=== PATIENT | female | born 1965 | race Caucasian/White ===

== ENCOUNTER 2021-02-12 10:28 | Inpatient (IN) ==
[2021-02-12 11:50] LABS: Alanine Aminotransferase 11 U/L (12-78); Albumin Level 3.2 gm/dl (3.4-5.0); Anion Gap 0 (3-11); Aspartate Aminotransferase 14 U/L (15-37); Blood Urea Nitrogen 14 mg/dl (7-18); Chloride 98 mmol/L (98-107); Creatinine Clr Calc Pharmacy 171.4 ml/min; Est GFR (African American) 122.2 ml/min; Est GFR (Non-African American) 105.4 ml/min; Glucose 258 mg/dl (70-99); Magnesium 2.1 mg/dl (1.8-2.4); Sodium 139 mmol/L (136-145)
[2021-02-12 11:56] LABS: Albumin Globulin Ratio 0.9 (0.9-2); Alkaline Phosphatase 144 U/L (45-117); Globulin 3.7 gm/dl (2.5-4.0); NT Pro B Type Natriuretic Pept 400 pg/ml (0-900); Total Protein 6.9 gm/dl (6.4-8.2); Troponin I < 0.015 ng/ml (0-0.045)
[2021-02-12] MEDS ORDERED: ALBUT/IPRATROP 3MG/0.5MG NEB 3 ML VIAL NEB STA (12:14)
[2021-02-12 12:28] LABS: Carbon Dioxide 41 mmol/L (21-32)
--- NOTE | 2021-02-12 12:56 | XRay Report ---
XR chest 1V portable CLINICAL HISTORY: Shortness of breath. COMPARISON STUDY: No previous studies for comparison. FINDINGS: There is elevation of the right hemidiaphragm. Right perihilar and right basilar opacity is present. There is also left lower lung opacity. Interstitial thickening is noted. Enlargement of the cardiac silhouette is noted. There may be calcific tendinitis of the left rotator cuff. There is no pneumothorax. There may be a small right pleural effusion. IMPRESSION: 1. Enlargement of the cardiac silhouette. Interstitial thickening suggestive of pulmonary edema. Poss ible small right pleural effusion. 2. Elevation of the right hemidiaphragm. Right perihilar and right basilar opacity which could reflec t atelectasis or an infectious process. Radiographic follow up is recommended. ACT 112: Negative or not required by law. Electronically signed by: Art Pierce M.D. 02/12/2021 12:54 PM
[2021-02-12 13:02] LABS: Basophils # (auto) 0.01 K/uL (0-0.2); Basophils % (auto) 0.1 %; Eosinophils # (auto) 0.22 K/uL (0-0.5); Eosinophils % (auto) 2.5 %; Hematocrit (blood only) 35.8 % (37-47); Hemoglobin 10.5 g/dL (12.0-16.0); Immature Granulocytes # (auto) 0.03 K/uL (0.00-0.02); Immature Granulocytes % (auto) 0.3 %; Lymphocytes # (auto) 1.98 K/uL (1.2-3.4); Lymphocytes % (auto) 22.1 %; Mean Corpuscular Hemoglobin 27.3 pg (25-34); Mean Corpuscular Hgb Conc 29.3 g/dL (32-36); Mean Corpuscular Volume 93.2 fL (80-100); Mean Platelet Volume 11.7 fL (7.4-10.4); Monocytes # (auto) 0.53 K/uL (0.11-0.59); Monocytes % (auto) 5.9 %; Neutrophils % (auto) 69.1 %; Platelet Count 270 K/uL (130-400); RDW Coefficient of Variation 15.8 % (11.5-14.5); RDW Standard Deviation 53.3 fL (36.4-46.3); Red Blood Count 3.84 M/uL (4.2-5.4); White Blood Count 8.97 K/uL (4.8-10.8)
--- NOTE | 2021-02-12 13:10 | Emergency Department Note ---
History of Present Illness General Chief complaint: Shortness of Breath/Dyspnea Stated complaint: BREATHING DIFFICULTY Time Seen by Provider: 02/12/21 10:53 Source: patient Mode of arrival: EMS Limitations: no limitations History of Present Illness Provider complaint: Shortness of breath, weakness Onset (ago): unknown Associated symptoms: + loss of appetite, + malaise, + shortness of breath and + weakness; no chest pain Treatments prior to arrival: none This is a 55-year-old female presents emergency department from her PCPs office via EMS due to concern for hypoxia and shortness of breath. Patient with significant pulmonary history including underlying COPD and wears 2 L/min of oxygen daily. Patient was recently in a jail/rehab facility for almost a month, and feels she was discharged too soon. Patient states she was discharged last Tuesday and came home and has had significant difficulty with her breathing as well as with ambulating. Patient states she feels significantly weak and is concerned for her ability to get around her apartment as well as transfer. Patient states she has been wearing her oxygen and using her nebulizer treatments at home however still felt short of breath. She saw h er PCP, Dr. Deng today in the office for a follow-up visit since her discharge and was initially found to be hypoxic at 74% on her usual 2 L. She was increased to 3 and came up into the 80s, and increased to 4 L and came up into the 90s by the time EMS arrived. On arrival here patient was on 4 L and was in the 90s. Patient states she still feels short of breath regardless. Patient denies any accompanying chest pain or fevers. Patient does believe she may been exposed to coronavirus while she was at rehab. She has not been tested since. Pt seen during a time of high acuity and national emergency pandemic while wearing PPE. Home Medications Medication Instructions Recorded Confirmed Type underpads #40 ea 02/21/20 02/12/21 Rx atorvastatin 20 mg tablet 20 mg PO DAILY #90 tab 03/24/20 02/12/21 Rx miscellaneous medical supply #1 ea 03/24/20 02/12/21 Rx miscellaneous medical supply #500 ea 03/24/20 02/12/21 Rx acetaminophen 500 mg tablet 1,000 mg PO Q6H PRN tab 02/10/21 02/12/21 History budesonide 0.5 mg/2 mL suspension 0.25 mg INHALATION BID #2 ml 02/10/21 02/12/21 Rx for nebulization bumetanide 1 mg tablet 1 mg PO DAILY 02/10/21 02/12/21 History carvedilol 12.5 mg tablet 12.5 mg PO BID 02/10/21 02/12/21 History clonazepam 0.5 mg tablet 0.5 mg PO TID tab 02/10/21 02/12/21 History cyclobenzaprine 10 mg tablet 10 mg PO BID PRN #60 tab 02/10/21 02/12/21 Rx insulin glargine 100 unit/mL 25 unit SQ QPM #40 ml 02/10/21 02/12/21 Rx subcutaneous solution insulin lispro 100 unit/mL See Rx Instructions SQ QID #10 ml 02/10/21 02/12/21 Rx subcutaneous solution ipratropium 0.5 mg-albuterol 3 mg 3 ml INHALATION QID PRN 02/10/21 02/12/21 History (2.5 mg base)/3 mL nebulization soln levothyroxine 150 mcg tablet 150 mcg PO DAILY 02/10/21 02/12/21 History nystatin 100,000 unit/gram topical 1 applic TOPICAL DAILY 02/10/21 02/12/21 History powder ondansetron HCl 4 mg tablet 4 mg PO Q6H PRN 02/10/21 02/12/21 History pantoprazole 40 mg granules 40 mg PO DAILY 02/10/21 02/12/21 History delayed-release for susp in packet polyethylene glycol 3350 17 17 g PO DAILY PRN 02/10/21 02/12/21 History gram/dose oral powder potassium chloride 10 mEq 10 meq PO DAILY 02/10/21 02/12/21 History tablet,extended release aripiprazole 30 mg PO DAILY 02/12/21 02/12/21 History buspirone 15 mg PO TID 02/12/21 02/12/21 History paroxetine HCl 10 mg PO DAILY 02/12/21 02/12/21 History Allergies Allergy/AdvReac Type Severity Reaction Status Date / Time bupropion Allergy Unknown Hives Verified 02/12/21 09:00 Sulfa (Sulfonamide Allergy Unknown Hives Verified 02/12/21 09:00 Antibiotics) Past Med/Surg History Medical History (Updated 02/13/21 @ 07:02 by aCro Castillo DO) Acid reflux Acne Allergic rhinitis Anemia Anxiety Arthritis Chronic diastolic (congestive) heart failure Chronic obstructive pulmonary disease Chronic respiratory failure Depression Diabetes type 2, uncontrolled Essential tremor Fatty liver H/O renal calculi H/O: iron deficiency anemia H/O: pneumonia Hearing difficulty Hyperlipemia Hypertension Hypothyroidism Knee osteoarthritis Lung cancer Mass of lung Obesity hypoventilation syndrome PTSD (post-traumatic stress disorder) Severe obstructive sleep apnea Urinary incontinence Vitamin D deficiency Surgical History H/O lithotripsy H/O prior ablation treatment Uterine.2005 H/O tympanostomy History of adenoidectomy History of tonsillectomy Previous section Family History Father Alcohol abuse Cardiac disorder Diabetes Gallbladder disease Hypertension Depression Mother Anxiety Depression Diabetes Hypertension Stroke Sister Breast cancer Depression Heart disease, congenital Grandmother (Maternal) Lung disease Grandfather (Maternal) Heart disease Colorectal cancer Prostate cancer Denies family history of Ovarian cancer Myocardial infarction Social History (Updated 02/12/21 @ 09:04 by Sasha Mckeon) Smoking Status: Never smoker Age Started Using Tobacco: 16; Age Quit Using Tobacco: 29; packs per day: 1; Second Hand Exposure: No; Hx Alcohol Use: No Hx Substance Use: No Preferred Language: Irish Communication Ability: Effective Visual Impairment: Limited Hearing Ability: Hard of Hearing Family Service Counselor Required: No Beliefs That Will Affect Care: None marital status: Legally Current Living Situation: Rehab current occupational status: disabled Other Information That Helps Us Care for You: No Feels Safe at Home: Yes Safety Concerns: Feels Safe At This Time and Afraid for Self Childhood Exposure to Second-Hand Smoke: Yes Diet Comment: Tries to maintain healthy diet. caffeine: Yes (Tea x 2 cups a day.) during the past year weight has: decreased > 10 lbs Dental Care, Regularly: No Physical Activity Frequency: Does not Exercise Physical Activity Frequency Comment: Limited by physical condition Seatbelt Use: always Sunscreen Use: Yes Assistive Devices: Oxygen - Continuous and Walker Review of Systems See HPI for pertinent positives & negatives. and A total of 10 systems reviewed and were otherwise negative Physical Exam Vital Signs Vital Signs - 24 hr 02/12/21 10:32 02/12/21 10:41 02/12/21 10:45 Temperature Temperature Source Pulse Rate 93 H 92 H 90 Pulse Rate [Right Finger] Pulse Rate from SpO2 Sensor 91 H Respiratory Rate 16 14 24 Respiratory Effort / Characteristics Blood Pressure 164/105 H 137/91 Blood Pressure Mean 124 106 Pulse Oximetry 95 Oxygen Delivery Method Oxygen Flow Rate 3 Sepsis Recent Fever Within 48 Hours Sepsis New/Unexplained Change in Mental Status Sepsis Action Taken by Nursing 02/12/21 10:50 02/12/21 10:52 02/12/21 10:58 Temperature 36.7 C Temperature Source Oral Pulse Rate 91 H 91 H Pulse Rate [Right Finger] Pulse Rate from SpO2 Sensor 91 H Respiratory Rate 21 20 Respiratory Effort / Characteristics Blood Pressure 164/105 H Blood Pressure Mean 124 Pulse Oximetry 100 95 100 Oxygen Delivery Method Nasal Cannula Nasal Cannula Oxygen Flow Rate 3 2 3 Sepsis Recent Fever Within 48 Hours No Sepsis New/Unexplained Change in Mental Status N/A Sepsis Action Taken by Nursing No Action Required 02/12/21 11:00 02/12/21 11:01 02/12/21 11:10 Temperature Temperature Source Pulse Rate 89 90 92 H Pulse Rate [Right Finger] Pulse Rate from SpO2 Sensor 90 90 92 H Respiratory Rate 13 16 25 H Respiratory Effort / Characteristics Blood Pressure 112/76 Blood Pressure Mean 88 Pulse Oximetry 100 100 100 Oxygen Delivery Method Oxygen Flow Rate 3 3 Sepsis Recent Fever Within 48 Hours Sepsis New/Unexplained Change in Mental Status Sepsis Action Taken by Nursing 02/12/21 11:20 02/12/21 11:30 02/12/21 11:31 Temperature Temperature Source Pulse Rate 91 H 92 H 91 H Pulse Rate [Right Finger] Pulse Rate from SpO2 Sensor 91 H 92 H 93 H Respiratory Rate 9 L 10 L 13 Respiratory Effort / Characteristics Blood Pressure 106/75 Blood Pressure Mean 85 Pulse Oximetry 99 99 100 Oxygen Delivery Method Oxygen Flow Rate Sepsis Recent Fever Within 48 Hours Sepsis New/Unexplained Change in Mental Status Sepsis Action Taken by Nursing 02/12/21 11:47 02/12/21 11:50 02/12/21 12:00 Temperature Temperature Source Pulse Rate 101 H 96 H 93 H Pulse Rate [Right Finger] Pulse Rate from SpO2 Sensor 97 H 94 H Respiratory Rate 33 H 22 Respiratory Effort / Characteristics Blood Pressure 103/64 Blood Pressure Mean 77 Pulse Oximetry 98 97 Oxygen Delivery Method Oxygen Flow Rate 3 Sepsis Recent Fever Within 48 Hours Sepsis New/Unexplained Change in Mental Status Sepsis Action Taken by Nursing 02/12/21 12:01 02/12/21 12:10 02/12/21 12:20 Temperature Temperature Source Pulse Rate 94 H 94 H 90 Pulse Rate [Right Finger] Pulse Rate from SpO2 Sensor 95 H 96 H 91 H Respiratory Rate 17 21 13 Respiratory Effort / Characteristics Blood Pressure Blood Pressure Mean Pulse Oximetry 99 95 98 Oxygen Delivery Method Oxygen Flow Rate 3 3 3 Sepsis Recent Fever Within 48 Hours Sepsis New/Unexplained Change in Mental Status Sepsis Action Taken by Nursing 02/12/21 12:30 02/12/21 12:37 02/12/21 12:40 Temperature Temperature Source Pulse Rate 91 H 93 H Pulse Rate [Right Finger] 93 H Pulse Rate from SpO2 Sensor 91 H 93 H Respiratory Rate 15 18 18 Respiratory Effort / Characteristics Non-Labored Spontaneous Blood Pressure 144/78 H Blood Pressure Mean 100 Pulse Oximetry 99 99 100 Oxygen Delivery Method Nasal Cannula Nasal Cannula Oxygen Flow Rate 3 2 2 Sepsis Recent Fever Within 48 Hours Sepsis New/Unexplained Change in Mental Status Sepsis Action Taken by Nursing 02/12/21 12:50 02/12/21 13:00 02/12/21 13:01 Temperature Temperature Source Pulse Rate 93 H 91 H 94 H Pulse Rate [Right Finger] Pulse Rate from SpO2 Sensor 93 H 92 H 94 H Respiratory Rate 15 12 22 Respiratory Effort / Characteristics Blood Pressure 132/81 Blood Pressure Mean 98 Pulse Oximetry 98 96 96 Oxygen Delivery Method Oxygen Flow Rate 2 2 2 Sepsis Recent Fever Within 48 Hours Sepsis New/Unexplained Change in Mental Status Sepsis Action Taken by Nursing 02/12/21 13:10 02/12/21 13:20 02/12/21 13:30 Temperature Temperature Source Pulse Rate 93 H 95 H 92 H Pulse Rate [Right Finger] Pulse Rate from SpO2 Sensor 93 H 95 H 92 H Respiratory Rate 17 26 H 14 Respiratory Effort / Characteristics Blood Pressure 117/73 Blood Pressure Mean 87 Pulse Oximetry 96 97 97 Oxygen Delivery Method Oxygen Flow Rate 2 Sepsis Recent Fever Within 48 Hours Sepsis New/Unexplained Change in Mental Status Sepsis Action Taken by Nursing 02/12/21 13:31 02/12/21 13:40 02/12/21 13:50 Temperature Temperature Source Pulse Rate 91 H 94 H 90 Pulse Rate [Right Finger] Pulse Rate from SpO2 Sensor 92 H 94 H 90 Respiratory Rate 18 20 20 Respiratory Effort / Characteristics Blood Pressure Blood Pressure Mean Pulse Oximetry 96 96 97 Oxygen Delivery Method Oxygen Flow Rate Sepsis Recent Fever Within 48 Hours Sepsis New/Unexplained Change in Mental Status Sepsis Action Taken by Nursing 02/12/21 14:00 02/12/21 14:01 02/12/21 14:10 Temperature Temperature Source Pulse Rate 91 H 94 H 91 H Pulse Rate [Right Finger] Pulse Rate from SpO2 Sensor 91 H 96 H 92 H Respiratory Rate 18 12 Respiratory Effort / Characteristics Blood Pressure 133/79 Blood Pressure Mean 97 Pulse Oximetry 96 96 96 Oxygen Delivery Method Oxygen Flow Rate 2 Sepsis Recent Fever Within 48 Hours Sepsis New/Unexplained Change in Mental Status Sepsis Action Taken by Nursing 02/12/21 14:20 02/12/21 14:30 02/12/21 14:31 Temperature Temperature Source Pulse Rate 92 H 93 H 93 H Pulse Rate [Right Finger] Pulse Rate from SpO2 Sensor 93 H 90 93 H Respiratory Rate 17 18 16 Respiratory Effort / Characteristics Blood Pressure 130/73 Blood Pressure Mean 92 Pulse Oximetry 96 93 95 Oxygen Delivery Method Oxygen Flow Rate 2 Sepsis Recent Fever Within 48 Hours Sepsis New/Unexplained Change in Mental Status Sepsis Action Taken by Nursing GENERAL: alert, well appearing, well nourished, no distress, non-toxic, BMI>56, wearing oxygen via nasal cannula under her mask EYE EXAM: normal conjunctiva, PERRL and EOM's grossly intact OROPHARYNX: no exudate, no erythema, lips, buccal mucosa, and tongue normal and mucous membranes are moist, edentulous NECK: supple, no nuchal rigidity, no adenopathy, non-tender LUNGS: Clear but decreased to auscultation. Normal chest wall mechanics, no w/r/r HEART: no murmurs, S1 normal and S2 normal ABDOMEN: abdomen soft, non-tender, normo-active bowel sounds, no masses, no rebound or guarding. BACK: Back is symmetrical on inspection and there is no deformity, no midline tenderness, no CVA tenderness. SKIN: no rashes and no bruising UPPER EXTREMITIES: upper extremities are grossly normal. FROM, nml pulses b/l. LOWER EXTREMITIES: No pitting edema. FROM, nml pulses b/l. NEURO EXAM: Normal sensorium, cranial nerves II-XII grossly intact, normal speech, no gross weakness of arms, no gross weakness of legs the patient states difficulty in raising legs, left greater than right. Gross sensation intact. Course Administered Medications Albuterol (Albut/Ipratrop 3mg/0.5mg Neb 3 Ml Vial) 3 ml INH QID PRN PRN Reason: Shortness Of Breath Or Wheezing Stop: 03/14/21 16:01 Last Admin: 02/13/21 02:46 Dose: 3 ml Documented by: [id number] Budesonide (Budesonide 0.5 Mg/2 Ml Vial (Pulmicort)) 0.25 mg INH BIDR [facility] Stop: 03/14/21 20:59 Last Admin: 02/12/21 19:47 Dose: Not Given Documented by: [id number] Buspirone HCl (Buspirone 15 Mg Tab) 15 mg PO TID [facility] Stop: 03/14/21 16:01 Last Admin: 02/12/21 21:10 Dose: 15 mg Documented by: [id number] Admin: 02/12/21 17:27 Dose: 15 mg Documented by: [id number] Carvedilol (Carvedilol 12.5 Mg Tab) 12.5 mg PO BID [facility] Stop: 03/14/21 20:59 Last Admin: 02/12/21 21:10 Dose: 12.5 mg Documented by: [id number] Clonazepam (Clonazepam 0.5 Mg Tab) 0.5 mg PO TID [facility] Stop: 03/14/21 16:01 Last Admin: 02/12/21 21:09 Dose: 0.5 mg Documented by: [id number] Admin: 02/12/21 17:27 Dose: 0.5 mg Documented by: [id number] Enoxaparin Sodium (Enoxaparin Inj 40 Mg/0.4 Ml Syr) 40 mg SQ Q12H [facility] Stop: 03/14/21 17:59 Last Admin: 02/13/21 05:53 Dose: 40 mg Documented by: [id number] Admin: 02/12/21 17:27 Dose: 40 mg Documented by: [id number] Insulin Aspart (Insulin Aspart 100 Units/Ml 3 Ml Pen) 0 units SC [facility]; Protocol Stop: 03/14/21 16:29 Last Admin: 02/12/21 21:14 Dose: 5 units Documented by: [id number] Cosigned by: [id number] Admin: 02/12/21 17:28 Dose: 7 units Documented by: [id number] Cosigned by: [id number] Insulin Glargine (Insulin Glargine Solostar 100 Units/Ml 3 Ml Pen) 25 units SC [facility]; Protocol Stop: 03/14/21 20:59 Last Admin: 02/12/21 21:12 Dose: 25 units Documented by: [id number] Cosigned by: [id number] Levothyroxine Sodium (Levothyroxine Sodium 150 Mcg Tablet) 150 mcg PO DAILYBB [facility]LE Stop: 03/15/21 06:29 Last Admin: 02/13/21 05:52 Dose: 150 mcg Documented by: [id number] Melatonin (Melatonin 3 Mg Tab) 3 mg PO HS PRN PRN Reason: Sleep Stop: 03/14/21 21:44 Last Admin: 02/13/21 00:08 Dose: 3 mg Documented by: [id number] Ondansetron HCl (Ondansetron 4 Mg Od Tab) 4 mg PO Q6 PRN PRN Reason: NAUSESA Stop: 03/14/21 17:10 Last Admin: 02/13/21 01:20 Dose: 4 mg Documented by: [id number] Discontinued Medications Albuterol (Albut/Ipratrop 3mg/0.5mg Neb 3 Ml Vial) 3 ml NEB NOW STA Stop: 02/12/21 12:15 Last Admin: 02/12/21 12:36 Dose: 3 ml Documented by: [id number] Ioversol (Optiray 350 500ml) 118 ml IV ONCE ONE Stop: 02/12/21 18:32 Last Admin: 02/12/21 18:32 Dose: 1 ml Documented by: [id number] Pneumococcal Polyvalent Vaccine (Pneumococcal Polysaccharides 25 Mcg/0.5 Ml Vial /Syr) 25 mcg IM .ONCE ONE Stop: 02/12/21 16:30 Last Admin: 02/12/21 17:28 Dose: Not Given Documented by: [id number] Medical Decision Making Differential Diagnosis Differential diagnoses includes but is not limited to pneumonia, bronchitis, COPD/Asthma exacerbation, pneumothorax, pulmonary embolism, congestive heart failure, acute coronary syndrome Medical Records Attestation: I reviewed the patient's medical records. Home Medications Current Medication List: was personally reviewed by me Laboratory Data Attestation: I reviewed the patient's lab results. Result diagrams: 02/12/21 12:16 02/12/21 11:28 Lab Results 02/12/21 02/12/21 02/12/21 Range/Units 11:28 11:28 11:51 WBC Cancelled RBC Cancelled Hgb Cancelled Hct Cancelled MCV Cancelled MCH Cancelled MCHC Cancelled RDW Std Deviation Cancelled RDW Coeff of Carol Cancelled Plt Count Cancelled MPV Cancelled Immature Gran % (Auto) Cancelled Neut % (Auto) Cancelled Lymph % (Auto) Cancelled [place] % (Auto) Cancelled Eos % (Auto) Cancelled Baso % (Auto) Cancelled Neut # (Auto) Cancelled Lymph # (Auto) Cancelled [place] # (Auto) Cancelled Eos # (Auto) Cancelled Baso # (Auto) Cancelled Immature Gran # (Auto) Cancelled Absolute Nucleated RBC Cancelled Nucleated RBC % (auto) Cancelled Neutrophils % (Manual) Cancelled Band Neutrophils % Cancelled Lymphocytes % (Manual) Cancelled Prolymphocyte % Cancelled Reactive Lymphs % (Man) Cancelled Monocytes % (Manual) Cancelled Eosinophils % (Manual) Cancelled Basophils % (Manual) Cancelled Metamyelocytes % (Man) Cancelled Myelocytes % (Man) Cancelled Promyelocytes % (Man) Cancelled Blast Cells % (Manual) Cancelled Plasma Cell % (Manual) Cancelled Other Cells % Cancelled Nucleated RBC % Cancelled Neutrophils # (Manual) Cancelled Band Neutrophils # Cancelled Total Absolute Neuts Cancelled Lymphocytes # (Manual) Cancelled Prolymphocyte # Cancelled Reactive Lymphs # Cancelled Total Abs Lymphocytes Cancelled Monocytes # (Manual) Cancelled Eosinophils # (Manual) Cancelled Basophils # (Manual) Cancelled Metamyelocytes # (Man) Cancelled Myelocytes # (Manual) Cancelled Promyelocytes # (Man) Cancelled Blast Cells # (Man) Cancelled Plasma Cell # (Manual) Cancelled Other Cells # Cancelled Nucleated RBCs # (Man) Cancelled Hypersegmented Neuts Cancelled Hyposegmented Neuts Cancelled Hypogranular Neuts Cancelled Large Granular Lymphs Cancelled # Lrg Granular Lymphs Cancelled Hairy Cells Cancelled Smudge Cells Cancelled Toxic Granulation Cancelled Toxic Vacuolation Cancelled Dohle Bodies Cancelled Alex Rods Cancelled Platelet Estimate Cancelled Hypogranular Platelets Cancelled Clumped Platelets Cancelled Giant Platelets Cancelled Platelet Satelliting Cancelled RBC Morphology Cancelled Polychromasia Cancelled Hypochromasia Cancelled Poikilocytosis Cancelled Basophilic Stippling Cancelled Anisocytosis Cancelled Microcytosis Cancelled Macrocytosis Cancelled Spherocytes Cancelled Pappenheimer Bodies Cancelled Sickle Cells Cancelled Target Cells Cancelled Tear Drop Cells Cancelled Ovalocytes Cancelled Stomatocytes Cancelled [place] Bodies Cancelled Echinocytes Cancelled Acanthocytes (Spur) Cancelled Rouleaux Cancelled RBC Agglutinates Cancelled Schistocytes Cancelled RBC Morph Comment Cancelled [place] Cell Cancelled Sodium 139 (136-145) mmol/L Potassium 5.0 (3.5-5.1) mmol/L Chloride 98 (98-107) mmol/L Carbon Dioxide 41 H* (21-32) mmol/L Anion Gap 0 L (3-11) BUN 14 (7-18) mg/dl Creatinine 0.53 L (0.6-1.2) mg/dl Est Cr Clr Drug Dosing 171.4 ml/min Est GFR ( Amer) 122.2 ml/min Est GFR (Non-Af Amer) 105.4 ml/min BUN/Creatinine Ratio 26.0 H (10-20) Glucose 258 H (70-99) mg/dl Calcium 9.0 (8.5-10.1) mg/dl Magnesium 2.1 (1.8-2.4) mg/dl Total Bilirubin 1.0 (0.2-1) mg/dl AST 14 L (15-37) U/L ALT 11 L (12-78) U/L Alkaline Phosphatase 144 H (45-117) U/L Troponin I < 0.015 (0-0.045) ng/ml NT-Pro-B Natriuret Pep 400 (0-900) pg/ml Total Protein 6.9 (6.4-8.2) gm/dl Albumin 3.2 L (3.4-5.0) gm/dl Globulin 3.7 (2.5-4.0) gm/dl Albumin/Globulin Ratio 0.9 (0.9-2) COVID-19 Eval Order Covid19 at [facility] SARS-CoV-2 (PCR) (Negative) Hepatitis C Ab Screen (Neg) 02/12/21 02/12/21 02/12/21 Range/Units 11:51 12:16 12:16 WBC 8.97 RBC 3.84 L Hgb 10.5 L Hct 35.8 L MCV 93.2 MCH 27.3 MCHC 29.3 L RDW Std Deviation 53.3 H RDW Coeff of Carol 15.8 H Plt Count 270 MPV 11.7 H Immature Gran % (Auto) 0.3 Neut % (Auto) 69.1 Lymph % (Auto) 22.1 [place] % (Auto) 5.9 Eos % (Auto) 2.5 Baso % (Auto) 0.1 Neut # (Auto) 6.20 Lymph # (Auto) 1.98 [place] # (Auto) 0.53 Eos # (Auto) 0.22 Baso # (Auto) 0.01 Immature Gran # (Auto) 0.03 H Absolute Nucleated RBC Nucleated RBC % (auto) Neutrophils % (Manual) Band Neutrophils % Lymphocytes % (Manual) Prolymphocyte % Reactive Lymphs % (Man) Monocytes % (Manual) Eosinophils % (Manual) Basophils % (Manual) Metamyelocytes % (Man) Myelocytes % (Man) Promyelocytes % (Man) Blast Cells % (Manual) Plasma Cell % (Manual) Other Cells % Nucleated RBC % Neutrophils # (Manual) Band Neutrophils # Total Absolute Neuts Lymphocytes # (Manual) Prolymphocyte # Reactive Lymphs # Total Abs Lymphocytes Monocytes # (Manual) Eosinophils # (Manual) Basophils # (Manual) Metamyelocytes # (Man) Myelocytes # (Manual) Promyelocytes # (Man) Blast Cells # (Man) Plasma Cell # (Manual) Other Cells # Nucleated RBCs # (Man) Hypersegmented Neuts Hyposegmented Neuts Hypogranular Neuts Large Granular Lymphs # Lrg Granular Lymphs Hairy Cells Smudge Cells Toxic Granulation Toxic Vacuolation Dohle Bodies Alex Rods Platelet Estimate Hypogranular Platelets Clumped Platelets Giant Platelets Platelet Satelliting RBC Morphology Polychromasia Hypochromasia Poikilocytosis Basophilic Stippling Anisocytosis Microcytosis Macrocytosis Spherocytes Pappenheimer Bodies Sickle Cells Target Cells Tear Drop Cells Ovalocytes Stomatocytes [place] Bodies Echinocytes Acanthocytes (Spur) Rouleaux RBC Agglutinates Schistocytes RBC Morph Comment Sezary Cell Sodium (136-145) mmol/L Potassium (3.5-5.1) mmol/L Chloride (98-107) mmol/L Carbon Dioxide (21-32) mmol/L Anion Gap (3-11) BUN (7-18) mg/dl Creatinine (0.6-1.2) mg/dl Est Cr Clr Drug Dosing ml/min Est GFR ( Amer) ml/min Est GFR (Non-Af Amer) ml/min BUN/Creatinine Ratio (10-20) Glucose (70-99) mg/dl Calcium (8.5-10.1) mg/dl Magnesium (1.8-2.4) mg/dl Total Bilirubin (0.2-1) mg/dl AST (15-37) U/L ALT (12-78) U/L Alkaline Phosphatase (45-117) U/L Troponin I (0-0.045) ng/ml NT-Pro-B Natriuret Pep (0-900) pg/ml Total Protein (6.4-8.2) gm/dl Albumin (3.4-5.0) gm/dl Globulin (2.5-4.0) gm/dl Albumin/Globulin Ratio (0.9-2) COVID-19 Eval Order SARS-CoV-2 (PCR) NEGATIVE (Negative) Hepatitis C Ab Screen Neg (Neg) Imaging Data Radiologist's Impression: Chest X-Ray 02/12/21 11:28 XR chest 1V portable CLINICAL HISTORY: Shortness of breath. COMPARISON STUDY: No previous studies for comparison. FINDINGS: There is elevation of the right hemidiaphragm. Right perihilar and rig ht basilar opacity is present. There is also left lower lung opacity. Interstitial thickening is noted. Enlargement of the cardiac silhouette is noted. There may be calcific tendinitis of the left rotator cuff. There is no pneumothorax. There may be a small right pleural effusion. IMPRESSION: 1. Enlargement of the cardiac silhouette. Interstitial thickening suggestive of pulmonary edema. Possible small right pleural effusion. 2. Elevation of the right hemidiaphragm. Right perihilar and right basilar opacity which could reflect atelectasis or an infectious process. Radiographic follow up is recommended. ACT 112: Negative or not required by law. Electronically signed by: Art Pierce M.D. 02/12/2021 12:54 PM ECG Data Attestation: I personally reviewed and interpreted this ECG as follows: Indication: + SOB/dyspnea Rate (beats per minute): 87 Rhythm: + normal sinus ECG Intervals/blocks: + Normal QRS and + Normal QT ECG [place]: + Normal ECG ST segments: + Normal ST segments MDM Narrative This is a 55-year-old female who presents due to concern for increased shortness of breath and weakness. Patient was recently hospitalized in a rehab facility out of the area and was released last Tuesday. Patient has not yet been able to establish her prior routine of in-home aides on a daily basis. During her follow-up appointment with her PCP today, she was noted to be markedly hypoxic despite wearing her usual home oxygen at 2 L/min and was referred to the emergency department for additional evaluation. Patient with a longstanding history of underlying COPD, chronic oxygen use, and hypoventilatory syndrome. Patient states she does use her nebulizer treatments at home, has difficulty controlling her blood sugar readings at home due to difficulty with poor vision related to diabetic retinopathy. Patient states she is taking her medications that she was discharged on although has come with some concerns as she was previously on a diuretic twice a day and at time of discharge from rehab she was told only take it once a day. Patient states she feels increasing weakness and difficulty with ambulation and transfer. Patient's labs here were reassuring, some chronic changes were noted. Chest x-ray read as potential pulmonary edema although patient's labs and exam is not consistent with this. Patient was given a nebulizer treatment here and oxygen was able to be weaned down from 4 L/min to 2.5. While the etiology of her dyspnea is likely multifactorial, due to inability to care for self as well as worsening complaints combined with the hypoxia noted by her PCP today, case was discussed with hospitalist for additional evaluation and management. Patient was noted to be hyperglycemic consistent with her reported, no evidence of DKA or HHS. Patient was Covid negative. I do not suspect occult pneumonia. Feel patient's difficulty breathing more likely related to incorrect use of medications at home, body habitus, inability to care for self, anxiety regarding her condition, and underlying COPD. I do not suspect it is related to underlying cardiac etiology. I have a lower suspicion for occult PE. Patient states she was being given blood thinners when she was in rehab. There is none on her current medication list. An order was placed for continuous cardiac monitoring. The monitor shows a rate of _82_ with normal sinus rhythm. Impression & Plan Dyspnea, Chronic obstructive pulmonary disease, Hypertension, Hypoxia Discharge Plan Visit Data Chief Complaint: Shortness of Breath/Dyspnea Stated Complaint: BREATHING DIFFICULTY ED Provider: Caro Castillo Discharge Problem: Dyspnea, Chronic obstructive pulmonary disease, Hypertension, Hypoxia Patient Disposition: Admitted As Inpatient Discharge Instructions Interventions: ED Discharge Assessment Last Done: 02/12/21 15:24 Discharge Problem: Dyspnea Qualifiers: Dyspnea type: shortness of breath Qualified Code(s): R06.02 - Shortness of breath Chronic obstructive pulmonary disease Qualifiers: COPD type: unspecified COPD Qualified Code(s): J44.9 - Chronic obstructive pulmonary disease, unspecified Hypertension Qualifiers: Hypertension type: essential hypertension Qualified Code(s): I10 - Essential (primary) hypertension
--- NOTE | 2021-02-12 13:57 | History & Physical Report ---
Date of Service February 12, 2021 Assessment & Plan (1) Chronic respiratory failure: She seems to have acute on chronic respiratory failure with worsening hypoxia. She likely has obesity hypoventilation syndrome she typically is on what sounds to be a home trilogy or nighttime BiPAP ventilator type device. The patient also comes of this with a history of a lung mass although none was definitely seen on his chest x-ray. 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 Subsequently she has no wheezing while here in the emergency department we will bring her in the hospital supplemental oxygen get a CT scan of her chest continue her home inhalers. The CT scan scan of the chest will be with contrast as pulmonary embolism is a risk for this patient given her morbid obesity and sedentary state Overall the patient's likely decline because of lack of self-care at home concern whether she was wearing her AVAPS machine and also additional concern if she was caring for diabetes as her glucose was elevated on presentation she does not seem to have fairly good insight into her diabetic care (2) Obesity hypoventilation syndrome: Patient be on noninvasive positive pressure ventilation at night (3) Chronic diastolic (congestive) heart failure: Patient history of diastolic heart failure typically taking Bumex 1 mg a day this will be continued carvedilol 12.5 twice daily. Will have a low-salt diet and have daily weights (4) Diabetes type 2, uncontrolled: A1c will be pending on this patient will continue basal bolus insulin previously she is on glargine 25 at bedtime with scale for regular insulin with meals and at bedtime ascitic management consult be undertaken (5) Hypertension: For her hypertension Carvedilol (6) Depression: Continue his Abilify paroxetine and BuSpar she also takes clonazepam 3 times daily we will reduce this to twice daily as case this is making her functional performance decline (7) Acid reflux: Pantoprazole will be continued (8) Hypothyroidism: Woo on Synthroid 150 (9) DVT prophylaxis: History of Present Illness Primary Care Provider: Barbara Deng DO 55-year-old female presents emergency department from her PCPs office via EMS due to concern for hypoxia and shortness of breath. Patient with significant pulmonary history including underlying COPD and wears 2 L/min of oxygen daily. This pt is morbidly obese with bmi 56. Patient was recently in a intermediate/rehab facility for almost a month([place]), and her home services have not been restarted. Patient states she feels significantly weak and is concerned for her ability to get around her apartment as well as transfer. She has been having increasing left hip and knee pain and the is the reason she was in rehab in the first place. Patient states she has been wearing her oxygen and using her nebulizer treatments at home however still felt short of breath. She saw her PCP, Dr. Deng today in the office and was initially found to be hypoxic at 74% on her usual 2 L. She was increased to 3 and came up into the 80s, and increased to 4 L and came up into the 90s by the time EMS arrived. On arrival here patient was on 4 L and was in the 90s Patient denies any accompanying chest pain productive cough or fevers. Covid testing is negative and the pt looks non toxic. Allergies Allergy/AdvReac Type Severity Reaction Status Date / Time bupropion Allergy Unknown Hives Verified 02/12/21 09:00 Sulfa (Sulfonamide Allergy Unknown Hives Verified 02/12/21 09:00 Antibiotics) Home Medications Medication Instructions Recorded Confirmed Type underpads #40 ea 02/21/20 02/12/21 Rx atorvastatin 20 mg tablet 20 mg PO DAILY #90 tab 03/24/20 02/12/21 Rx miscellaneous medical supply #1 ea 03/24/20 02/12/21 Rx miscellaneous medical supply #500 ea 03/24/20 02/12/21 Rx acetaminophen 500 mg tablet 1,000 mg PO Q6H PRN tab 02/10/21 02/12/21 History budesonide 0.5 mg/2 mL suspension 0.25 mg INHALATION BID #2 ml 02/10/21 02/12/21 Rx for nebulization bumetanide 1 mg tablet 1 mg PO DAILY 02/10/21 02/12/21 History carvedilol 12.5 mg tablet 12.5 mg PO BID 02/10/21 02/12/21 History clonazepam 0.5 mg tablet 0.5 mg PO TID tab 02/10/21 02/12/21 History cyclobenzaprine 10 mg tablet 10 mg PO BID PRN #60 tab 02/10/21 02/12/21 Rx insulin glargine 100 unit/mL 25 unit SQ QPM #40 ml 02/10/21 02/12/21 Rx subcutaneous solution insulin lispro 100 unit/mL See Rx Instructions SQ QID #10 ml 02/10/21 02/12/21 Rx subcutaneous solution ipratropium 0.5 mg-albuterol 3 mg 3 ml INHALATION QID PRN 02/10/21 02/12/21 History (2.5 mg base)/3 mL nebulization soln levothyroxine 150 mcg tablet 150 mcg PO DAILY 02/10/21 02/12/21 History nystatin 100,000 unit/gram topical 1 applic TOPICAL DAILY 02/10/21 02/12/21 History powder ondansetron HCl 4 mg tablet 4 mg PO Q6H PRN 02/10/21 02/12/21 History pantoprazole 40 mg granules 40 mg PO DAILY 02/10/21 02/12/21 History delayed-release for susp in packet polyethylene glycol 3350 17 17 g PO DAILY PRN 02/10/21 02/12/21 History gram/dose oral powder potassium chloride 10 mEq 10 meq PO DAILY 02/10/21 02/12/21 History tablet,extended release aripiprazole 30 mg PO DAILY 02/12/21 02/12/21 History buspirone 15 mg PO TID 02/12/21 02/12/21 History paroxetine HCl 10 mg PO DAILY 02/12/21 02/12/21 History Past Med/Surg History Medical History (Updated 02/12/21 @ 13:52 by Moises Tabares MD) Acid reflux Acne Allergic rhinitis Anemia Anxiety Arthritis Chronic diastolic (congestive) heart failure Chronic obstructive pulmonary disease Chronic respiratory failure Depression Diabetes type 2, uncontrolled Essential tremor Fatty liver H/O renal calculi H/O: iron deficiency anemia H/O: pneumonia Hearing difficulty Hyperlipemia Hypertension Hypothyroidism Knee osteoarthritis Lung cancer Mass of lung Obesity hypoventilation syndrome PTSD (post-traumatic stress disorder) Severe obstructive sleep apnea Urinary incontinence Vitamin D deficiency Surgical History H/O lithotripsy H/O prior ablation treatment Uterine.2006 H/O tympanostomy History of adenoidectomy History of tonsillectomy Previous section Family History Father Alcohol abuse Cardiac disorder Diabetes Gallbladder disease Hypertension Depression Mother Anxiety Depression Diabetes Hypertension Stroke Sister Breast cancer Depression Heart disease, congenital Grandmother (Maternal) Lung disease Grandfather (Maternal) Heart disease Colorectal cancer Prostate cancer Denies family history of Ovarian cancer Myocardial infarction Social History (Updated 02/12/21 @ 09:04 by Sasha Mckeon) Smoking Status: Never smoker Age Started Using Tobacco: 16; Age Quit Using Tobacco: 29; packs per day: 1; Second Hand Exposure: No; Hx Alcohol Use: No Hx Substance Use: No Preferred Language: Romanian Communication Ability: Effective Visual Impairment: Limited Hearing Ability: Hard of Hearing Insurance Assistant Required: No Beliefs That Will Affect Care: None marital status: Legally Current Living Situation: Rehab current occupational status: disabled Other Information That Helps Us Care for You: No Feels Safe at Home: Yes Safety Concerns: Feels Safe At This Time and Afraid for Self Childhood Exposure to Second-Hand Smoke: Yes Diet Comment: Tries to maintain healthy diet. caffeine: Yes (Tea x 2 cups a day.) during the past year weight has: decreased > 10 lbs Dental Care, Regularly: No Physical Activity Frequency: Does not Exercise Physical Activity Frequency Comment: Limited by physical condition Seatbelt Use: always Sunscreen Use: Yes Assistive Devices: Oxygen - Continuous and Walker Review of Systems Review of Systems: Moderate distress and dyspnea on exertion no headache, blurry or double vision no speech or swallowing issues no chest pain, pressure or palpitations Is dyspneic even with talking or moving about in bed no abdominal pain, nausea or vomiting, diarrhea or constipation no dysuria, hematuria or frequency Left hip pain mostly lateral reproducible on exam left knee pain no back pain, CVA tenderness or radicular pain no bruising, bleeding or rashes no focal signs of weakness or numbness or altered sensation no complaints of anxiety or depression.. Physical Exam Physical Exam: The patient appeared orbitally obese with a BMI of 56 Vital signs as documented. Head exam is normocephalic atraumatic She is edentulous there is no oral thrush Neck not be assessed for JVD, Jaciel is midline she has no thyromegaly, or carotid bruits. Lungs are clear to auscultation, extremely diminished no wheezes or prolonged expiratory phase is noted Cardiac exam, Rhythm is regular. Very distant. No murmurs, rubs or gallops. Abdominal exam reveals normal bowel sounds, soft non tender, no masses Extremities are nonedematous and both pedal pulses are present Lateral left hip is markedly tender possibly consistent with trochanteric bursitis Neurologic exam is alert and oriented, no focal loss of strength or sensation Skin is without bruises or rashes Psychologically is without concerns for anxiety or depression Results & Data Results & Data ([facility]) Vital Signs (Past 12 Hours) Vital Signs Temp Pulse Pulse Resp BP Pulse Ox 02/12/21 13:00 91 H 12 132/81 96 02/12/21 12:50 93 H 15 98 02/12/21 12:40 93 H 18 100 02/12/21 12:37 93 H 18 99 02/12/21 12:30 91 H 15 144/78 H 99 02/12/21 12:20 90 13 98 02/12/21 12:10 94 H 21 95 02/12/21 12:01 94 H 17 99 02/12/21 12:00 93 H 22 103/64 97 02/12/21 11:50 96 H 33 H 98 02/12/21 11:47 101 H 02/12/21 11:31 91 H 13 100 02/12/21 11:30 92 H 10 L 106/75 99 02/12/21 11:20 91 H 9 L 99 02/12/21 11:10 92 H 25 H 100 02/12/21 11:01 90 16 100 02/12/21 11:00 89 13 112/76 100 02/12/21 10:58 100 02/12/21 10:52 98.1 F 91 H 20 164/105 H 95 02/12/21 10:50 91 H 21 100 02/12/21 10:45 90 24 137/91 95 02/12/21 10:41 92 H 14 02/12/21 10:32 93 H 16 164/105 H Chest X-Ray 02/12/21 11:28 XR chest 1V portable CLINICAL HISTORY: Shortness of breath. COMPARISON STUDY: No previous studies for comparison. FINDINGS: There is elevation of the right hemidiaphragm. Right perihilar and right basilar opacity is present. There is also left lower lung opacity. Interstitial thickening is noted. Enlargement of the cardiac silhouette is noted. There may be calcific tendinitis of the left rotator cuff. There is no pneumothorax. There may be a small right pleural effusion. IMPRESSION: 1. Enlargement of the cardiac silhouette. Interstitial thickening suggestive of pulmonary edema. Possible small right pleural effusion. 2. Elevation of the right hemidiaphragm. Right perihilar and right basilar opacity which could reflect atelectasis or an infectious process. Radiographic follow up is recommended. Electronically signed by: Art Pierce M.D. 02/12/2021 12:54 PM PG Care Time/CCT Total # of Minutes Spent Total Time Spent with Patient: Total time spent is greater than 50% in coordination of care (as documented) at patient's floor/unit and/or counseling patient: Coding Level of Care Code 83503 Initial Inpt Care Lvl 3 Diagnoses Chronic respiratory failure J96.10 Obesity hypoventilation syndrome E66.2 Chronic diastolic (congestive) heart failure I50.32 Diabetes type 2, uncontrolled E11.65 Hypertension I10 Depression F32.9 Acid reflux K21.9 Hypothyroidism E03.9 DVT prophylaxis Z29.9
[2021-02-12] MEDS ORDERED: ONDANSETRON INJ 2 MG/ML 2 ML VIAL IV PRN (16:02)
[2021-02-12] MEDS ORDERED: GLUCAGON FOR INJ 1 MG VIAL SQ PRN (16:02)
[2021-02-12] MEDS ORDERED: ACETAMINOPHEN HOME PACK 500 MG TABLET PO PRN (16:02)
[2021-02-12] MEDS ORDERED: GLUCOSE 10 TABS/TUBE PO PRN (16:02)
[2021-02-12] MEDS ORDERED: CARBOHYDRATES FOR HYPOGLYCEMIA PO PRN (16:02)
[2021-02-12] MEDS ORDERED: DEXTROSE 50% 50 ML SYRINGE IV PRN (16:02)
[2021-02-12] MEDS ORDERED: POLYETHYLENE (MIRALAX) 17 GM PACK PO PRN (16:02)
[2021-02-12] MEDS ORDERED: ALUMINUM/MAGNESIUM SUSP 30 ML UDC PO PRN (16:02)
[2021-02-12] MEDS ORDERED: GLUCOSE 40% GEL 15 GM TUBE PO PRN (16:02)
[2021-02-12] MEDS ORDERED: MAGNESIUM HYDROXIDE SUSP 30 ML UDC PO PRN (16:02)
[2021-02-12] MEDS ORDERED: PHARMACY GLYCEMIC MGMT CONSULT SCH (16:19)
[2021-02-12] MEDS ORDERED: PNEUMOCOCCAL POLYSACCHARIDES 25 MCG/0.5 ML VIAL/SYR IM ONE (16:29)
--- NOTE | 2021-02-12 17:23 | XRay Report ---
XR hip LT 2V w pelvis HISTORY: 55 years-old Female left lateral hip pain acute left-sided hip pain COMPARISON: None TECHNIQUE: AP view of the pelvis with 2 views of the left hip FINDINGS: IUD of the mid pelvis. Mild osteoarthritis of the hips. No acute fracture, dislocation or avascular n ecrosis. Unremarkable soft tissues. IMPRESSION: No acute fracture. ACT 112: Negative or not required by law. The above report was generated using voice recognition software. It may contain grammatical, syntax o r spelling errors. Electronically signed by: Eduin Briseno M.D. 02/12/2021 5:22 PM
[2021-02-12] MEDS: clonazePAM 0.5 MG TAB PO SCH ×2 (17:27→21:09)
[2021-02-12] MEDS: busPIRone 15 MG TAB PO SCH ×2 (17:27→21:10)
[2021-02-12] MEDS: ENOXAPARIN INJ 40 MG/0.4 ML SYR SQ SCH (17:27)
[2021-02-12] MEDS: INSULIN ASPART 100 UNITS/ML 3 ML PEN SC SCH ×2 (17:28→21:14)
[2021-02-12] MEDS ORDERED: ONDANSETRON 4 MG OD TAB PO SCH (18:00)
[2021-02-12] MEDS ORDERED: OPTIRAY 350 500ml IV ONE (18:31)
--- NOTE | 2021-02-12 19:28 | CT Scan Report ---
CT angio chest PE protocol CT DOSE: 1840.76 mGy.cm HISTORY: 55 years-old Female with PE. Acute shortness of breath TECHNIQUE: Multiple CTA images of the chest were obtained after the intravenous administration of 114 ml Optiray. Coronal and sagittal MIPS were obtained from the axial data set and were submitted for review. All measurements were obtained according to NASCET criteria. A dose lowering technique was u tilized adhering to the principles of ALARA. COMPARISON: Chest radiograph of same day FINDINGS: Limited study secondary to patient body habitus. CTA: Moderate cardiomegaly. No pericardial effusion. Opacified collateral vessels of the left chest wall w ith findings suggestive of chronic occlusion versus stenosis of the left subclavian vein. Mild macias ry artery calcifications. No thoracic aortic aneurysm or dissection. Patency of the imaged great vess els. Dilated main pulmonary artery, 3.5 cm suggestive of pulmonary artery hypertension. Minimal subse gmental branches within the lung bases are not well visualized. No filling defects identified to sugg est thromboembolic disease. CT CHEST: No thyroid nodule identified. No adenopathy. Trace right pleural effusion. Mild right hemidiaphragmat ic elevation. No pneumothorax. Bilateral groundglass opacities with areas of mosaic attenuation. Line ar consolidative left lung base opacities suggestive of atelectasis with consolidation and volume los s of the right lung base. Decreased AP dimension of the trachea and bronchi. No pneumoperitoneum. Hepatomegaly. Unremarkable soft tissues. There is no acute fracture. IMPRESSION: 1. No pulmonary emboli. 2. Opacified venous collaterals of the left chest wall suggestive of chronic occlusion versus stenosi s of the left subclavian vein. 3. Cardiomegaly with findings suggestive of pulmonary artery hypertension. 4. Bilateral atelectasis with areas of air trapping. 5. Asymmetric right lung base consolidation may also reflect atelectasis however pneumonia could appe ar similarly. 6. Trace right pleural effusion. ACT 112: Negative or not required by law. The above report was generated using voice recognition software. It may contain grammatical, syntax o r spelling errors. Electronically signed by: Eduin Briseno M.D. 02/12/2021 7:26 PM
[2021-02-12] MEDS: BUDESONIDE 0.5 MG/2 ML VIAL (PULMICORT) INH SCH (19:47)
[2021-02-12] MEDS ORDERED: LANTUS PER UNIT CHARGE SQ SCH (21:00)
[2021-02-12] MEDS: carvediloL 12.5 MG TAB PO SCH (21:10)
[2021-02-12] MEDS: INSULIN GLARGINE SOLOSTAR 100 UNITS/ML 3 ML PEN SC SCH (21:12)
[2021-02-12] MEDS ORDERED: diphenhydrAMINE 50 MG/ML VIAL IV PRN (21:45)
[2021-02-12] MEDS ORDERED: MELATONIN 3 MG TAB PO PRN (21:45)
[2021-02-13] MEDS: ONDANSETRON 4 MG OD TAB PO PRN (01:20)
[2021-02-13] MEDS: ALBUT/IPRATROP 3MG/0.5MG NEB 3 ML VIAL INH PRN (02:46)
[2021-02-13] MEDS: LEVOTHYROXINE SODIUM 150 MCG TABLET PO SCH (05:52)
[2021-02-13] MEDS: ENOXAPARIN INJ 40 MG/0.4 ML SYR SQ SCH ×2 (05:53→18:16)
[2021-02-13] MEDS: BUDESONIDE 0.5 MG/2 ML VIAL (PULMICORT) INH SCH ×2 (07:07→19:46)
[2021-02-13 08:29] LABS: Estimated Average Glucose 235 mg/dl; Hemoglobin A1C 9.8 % (4.5-5.6)
--- NOTE | 2021-02-13 09:28 | Pharmacy Report ---
Pharmacy Glycemic Short Note 2 - Date of Service February 13, 2021 - Glycemic Short BSG Results (Last 24 hours): 02/12/21 02/12/21 02/12/21 11:28 17:19 20:18 Glucose 258 H POC Glucose 195 H 160 H 02/13/21 07:32 Glucose POC Glucose 148 H OUTPATIENT ANTIDIABETIC REGIMEN: * Lantus 25 units qpm * Lispro 1-8u TIDM * A1c: 9.8% ASSESSMENT: * Patient admitted yesterday and initiated on home basal regimen. Novolog scale used is based on a weight based moderate stress regimen. * Blood sugars have trended down nicely since yesterday, with a fasting this morning of 148 mg/dL. Patient is tolerating a diet, but intake is low. PLAN FOR INPATIENT GLYCEMIC CONTROL: * Hold outpatient oral diabetes medications * Basal insulin * Lantus 25 units SQ qpm * Bolus insulin * NovoLog per scale ACHS or Q6hrs while NPO * Goal Range: Low 110 mg/dL - High 140 mg/dL * Correction Factor: 15 mg/dL/unit * Nutritional / Prandial insulin per carb ratio of 1 unit per 5 grams CHO consumed
[2021-02-13] MEDS: INSULIN ASPART 100 UNITS/ML 3 ML PEN SC SCH ×4 (09:54→20:56)
[2021-02-13] MEDS: ACETAMINOPHEN 325 MG TAB PO PRN (09:54)
[2021-02-13] MEDS: ARIPiprazole 15 MG TAB PO SCH (09:55)
[2021-02-13] MEDS: BUMETANIDE 1 MG TAB PO SCH (09:55)
[2021-02-13] MEDS: NYSTATIN POWDER 15GM BTL EXT SCH (09:55)
[2021-02-13] MEDS: carvediloL 12.5 MG TAB PO SCH ×2 (09:55→20:34)
[2021-02-13] MEDS: clonazePAM 0.5 MG TAB PO SCH ×3 (09:55→20:37)
[2021-02-13] MEDS: PANTOprazole 40 MG TAB PO SCH (09:55)
[2021-02-13] MEDS: busPIRone 15 MG TAB PO SCH ×3 (09:55→20:34)
[2021-02-13] MEDS: PARoxetine HCL 10 MG TAB PO SCH (09:55)
[2021-02-13] MEDS: ATORVASTATIN 20 MG TAB PO SCH (09:55)
[2021-02-13] MEDS: POTASSIUM CHLORIDE 10 MEQ TABCR PO SCH (09:56)
--- NOTE | 2021-02-13 11:29 | Electrocardiogram Report ---
Test Reason : Blood Pressure : / mmHG Vent. Rate : 087 BPM Atrial Rate : 087 BPM P-R Int : 156 ms QRS Dur : 084 ms QT Int : 366 ms P-R-T Axes : 064 028 063 degrees QTc Int : 440 ms Normal sinus rhythm Normal ECG When compared with ECG of 17-APR-2015 13:03, Nonspecific T wave abnormality now evident in Anterior leads Confirmed by Angel Tejada ([id number]) on 02/13/2021 11:28:05 AM Referred By: REFERRED SELF Confirmed By:Emre Tejada
--- NOTE | 2021-02-13 12:39 | XRay Report ---
LEFT KNEE 2 VIEWS CLINICAL HISTORY: Left knee pain. FINDINGS: AP and crosstable lateral views of left knee are obtained. No prior studies are available f or comparison at the time of dictation. The skeletal structures are osteopenic. No acute fracture is identified. Varus deformity is noted. There is moderate degenerative narrowing at the medial and nogueira llofemoral compartments. There are large medial marginal osteophytes and patellar enthesophytes. A ca lcified fabella is incidentally noted. There is a small joint effusion. Soft tissue edema is present throughout the imaged left lower extremity. IMPRESSION: 1. Soft tissue swelling and small joint effusion with no acute bony abnormality identified. 2. Osteopenia with varus deformity and degenerative change as above. Electronically signed by: Nikunj Alan M.D. 02/13/2021 12:37 PM
--- NOTE | 2021-02-13 13:12 | Orthopedic Consultation ---
Date of Consultation February 13, 2021 Assessment & Plan (1) Lateral pain of left hip: X-rays reviewed of the left hip and knee. Left hip has some mild degenerative changes. No obvious lesions or fractures. Left knee film shows medial compartment degenerative arthritis as well as patellofemoral arthritis, mild to moderate. Her left hip seems to be the biggest problem for her at this point in time. Examination does preclude that she has a trochanteric bursitis. We discussed the possibility of having her undergo a steroid injection in that area to help with her symptoms. We discussed risks including bleeding, infection, possibility of steroid flareup. Patient understands and would like to undergo a left trochanteric bursa hip injection. Medications will be ordered to the bedside. Her knee pain seems to be less problematic than her hip pain. Consider anti- inflammatories if she can tolerate. If worsens, consider steroid injection for the left knee as well. Supervising Physician Co-Signing Physician Notes Patient seen and examined. Agree with KRYSTLE Thakkar's note as above. She is a morbidly obese female with chronic lateral sided hip pain since at least July 2020 consistent with trochanteric bursitis. She has not had this treated previously. Left hip x-rays show no significant arthritis. Left knee x-rays show moderate tricompartmental osteoarthritis, worst in the medial compartment. Plan for left hip greater trochanteric bursa steroid injection for pain relief. She can follow-up in orthopedics clinic on an as-needed basis. Call [facility] at [phone] to make an appointment if desired. History of Present Illness Reason for Consultation: Rule out trochanteric bursitis Attending Physician: Jorje Musa History of Present Illness Patient is a 55-year-old white female with history of significant pulmonary problems who was admitted to the hospital yesterday from her primary care physician's office secondary to hypoxia and shortness of breath. When the patient was being admitted, Dr. Faustin found on his exam that she had a question of trochanteric bursitis on the left hip. We have been asked to see her for that today. The patient is sleeping upon arrival but is easily awoken. She states that she has been having pain in her left hip over the lateral aspect since . This has progressively worsened over time. She states it does not seem to hurt as much when she is taking the leg through range of motion but there is also some discomfort with ambulation. Most of the pain is over the lateral hip but she states that she does have some groin pain at times. She also complains of some left knee pain that she has had for a while now. She denies any pain in the low back with radiculopathy. Denies any decrease sensation of the left lower extremity. No other complaints. Allergies Allergy/AdvReac Type Severity Reaction Status Date / Time bupropion Allergy Unknown Hives Verified 02/12/21 09:00 Sulfa (Sulfonamide Allergy Unknown Hives Verified 02/12/21 09:00 Antibiotics) Home Medications Medication Instructions Recorded Confirmed Type underpads #40 ea 02/21/20 02/12/21 Rx atorvastatin 20 mg tablet 20 mg PO DAILY #90 tab 03/24/20 02/12/21 Rx miscellaneous medical supply #1 ea 03/24/20 02/12/21 Rx miscellaneous medical supply #500 ea 03/24/20 02/12/21 Rx acetaminophen 500 mg tablet 1,000 mg PO Q6H PRN tab 02/10/21 02/12/21 History budesonide 0.5 mg/2 mL suspension 0.25 mg INHALATION BID #2 ml 02/10/21 02/12/21 Rx for nebulization bumetanide 1 mg tablet 1 mg PO DAILY 02/10/21 02/12/21 History carvedilol 12.5 mg tablet 12.5 mg PO BID 02/10/21 02/12/21 History clonazepam 0.5 mg tablet 0.5 mg PO TID tab 02/10/21 02/12/21 History cyclobenzaprine 10 mg tablet 10 mg PO BID PRN #60 tab 02/10/21 02/12/21 Rx insulin glargine 100 unit/mL 25 unit SQ QPM #40 ml 02/10/21 02/12/21 Rx subcutaneous solution insulin lispro 100 unit/mL See Rx Instructions SQ QID #10 ml 02/10/21 02/12/21 Rx subcutaneous solution ipratropium 0.5 mg-albuterol 3 mg 3 ml INHALATION QID PRN 02/10/21 02/12/21 History (2.5 mg base)/3 mL nebulization soln levothyroxine 150 mcg tablet 150 mcg PO DAILY 02/10/21 02/12/21 History nystatin 100,000 unit/gram topical 1 applic TOPICAL DAILY 02/10/21 02/12/21 History powder ondansetron HCl 4 mg tablet 4 mg PO Q6H PRN 02/10/21 02/12/21 History pantoprazole 40 mg granules 40 mg PO DAILY 02/10/21 02/12/21 History delayed-release for susp in packet polyethylene glycol 3350 17 17 g PO DAILY PRN 02/10/21 02/12/21 History gram/dose oral powder potassium chloride 10 mEq 10 meq PO DAILY 02/10/21 02/12/21 History tablet,extended release aripiprazole 30 mg PO DAILY 02/12/21 02/12/21 History buspirone 15 mg PO TID 02/12/21 02/12/21 History paroxetine HCl 10 mg PO DAILY 02/12/21 02/12/21 History Patient History Medical History (Updated 02/14/21 @ 08:22 by Jorje Musa) Acid reflux Acne Allergic rhinitis Anemia Anxiety Arthritis Chronic diastolic (congestive) heart failure Chronic obstructive pulmonary disease Chronic respiratory failure Depression Diabetes type 2, uncontrolled Essential tremor Fatty liver H/O renal calculi H/O: iron deficiency anemia H/O: pneumonia Hearing difficulty Hyperlipemia Hypertension Hypothyroidism Knee osteoarthritis Lung cancer Mass of lung Obesity hypoventilation syndrome PTSD (post-traumatic stress disorder) Severe obstructive sleep apnea Urinary incontinence Vitamin D deficiency Surgical History H/O lithotripsy H/O prior ablation treatment Uterine.2005 H/O tympanostomy History of adenoidectomy History of tonsillectomy Previous section Family History Father Alcohol abuse Cardiac disorder Diabetes Gallbladder disease Hypertension Depression Mother Anxiety Depression Diabetes Hypertension Stroke Sister Breast cancer Depression Heart disease, congenital Grandmother (Maternal) Lung disease Grandfather (Maternal) Heart disease Colorectal cancer Prostate cancer Denies family history of Ovarian cancer Myocardial infarction Social History Smoking Status: Never smoker Age Started Using Tobacco: 16; Age Quit Using Tobacco: 29; packs per day: 1; Second Hand Exposure: No; Hx Alcohol Use: No Hx Substance Use: No Preferred Language: [place] Communication Ability: Effective Visual Impairment: Limited Hearing Ability: Hard of Hearing Greaser And Oiler Required: No Beliefs That Will Affect Care: None marital status: Legally Current Living Situation: Rehab current occupational status: disabled Other Information That Helps Us Care for You: No Feels Safe at Home: Yes Safety Concerns: Feels Safe At This Time and Afraid for Self Childhood Exposure to Second-Hand Smoke: Yes Diet Comment: Tries to maintain healthy diet. caffeine: Yes (Tea x 2 cups a day.) during the past year weight has: decreased > 10 lbs Dental Care, Regularly: No Physical Activity Frequency: Does not Exercise Physical Activity Frequency Comment: Limited by physical condition Seatbelt Use: always Sunscreen Use: Yes Assistive Devices: Oxygen - Continuous Review of Systems Review of Systems: All systems reviewed & are unremarkable except as noted in HPI & below Physical Exam Physical Exam: Upon entering her room, she is asleep but is easily awoken. She does have a slight tendency to fall asleep again if the conversation not kept going. Nursing staff is present to help me with examination and turn her on her right side. On examination of the left lower extremity, no areas of ecchymosis or erythema are noted over the lateral hip. No overt swelling noted. Palpation of the lateral femur shows increased pain over the greater trochanter. She denies pain proximal to the greater trochanter on palpation and no pain in the left buttock. No pain on palpation distal to the greater trochanter at this time. She was then placed on her back. I was able to take her through gentle extension and flexion of the left hip without much in the way of discomfort. However, abduction and adduction did proved to be moderately painful. Only minimal discomfort with internal and external rotation of the left hip. She had some pain on palpation of her left knee which showed no signs of erythema. Size appears equal to the right. I was able to take her through gentle range of motion of the left knee. No overt crepitus during range of motion and the patient stated that she was having some discomfort but she did not appear to have a lot of pain. Collaterals appear to be stable. No pain on palpation on the medial or lateral aspect of the knee joint. Severe pain is over the patellofemoral region. No obvious pivot shift. No gross motor or sensory loss seen at this time. Results & Data ([facility]) Vital Signs (Past 12 Hours) Vital Signs Temp Pulse Resp BP BP Pulse Ox 02/13/21 11:00 36.8 C 22 114/70 93 02/13/21 07:07 84 18 97 02/13/21 07:00 36.4 C L 84 22 144/74 H 95 02/13/21 04:00 36.6 C 86 18 131/73 95 02/13/21 02:46 82 25 H 97 Diagnostic Findings Laboratory Results WBC 8.97 K/uL (4.8-10.8) 02/12/21 12:16 RBC 3.84 M/uL (4.2-5.4) L 02/12/21 12:16 Hgb 10.5 g/dL (12.0-16.0) L 02/12/21 12:16 Hct 35.8 % (37-47) L 02/12/21 12:16 MCV 93.2 fL (80-100) 02/12/21 12:16 MCH 27.3 pg (25-34) 02/12/21 12:16 MCHC 29.3 g/dL (32-36) L 02/12/21 12:16 RDW Std Deviation 53.3 fL (36.4-46.3) H 02/12/21 12:16 RDW Coeff of Carol 15.8 % (11.5-14.5) H 02/12/21 12:16 Plt Count 270 K/uL (130-400) 02/12/21 12:16 MPV 11.7 fL (7.4-10.4) H 02/12/21 12:16 Immature Gran % (Auto) 0.3 % 02/12/21 12:16 Neut % (Auto) 69.1 % 02/12/21 12:16 Lymph % (Auto) 22.1 % 02/12/21 12:16 Thomas % (Auto) 5.9 % 02/12/21 12:16 Eos % (Auto) 2.5 % 02/12/21 12:16 Baso % (Auto) 0.1 % 02/12/21 12:16 Neut # (Auto) 6.20 K/uL (1.4-6.5) 02/12/21 12:16 Lymph # (Auto) 1.98 K/uL (1.2-3.4) 02/12/21 12:16 Thomas # (Auto) 0.53 K/uL (0.11-0.59) 02/12/21 12:16 Eos # (Auto) 0.22 K/uL (0-0.5) 02/12/21 12:16 Baso # (Auto) 0.01 K/uL (0-0.2) 02/12/21 12:16 Immature Gran # (Auto) 0.03 K/uL (0.00-0.02) H 02/12/21 12:16 Absolute Nucleated RBC Cancelled 02/12/21 11:28 Nucleated RBC % (auto) Cancelled 02/12/21 11:28 Neutrophils % (Manual) Cancelled 02/12/21 11:28 Band Neutrophils % Cancelled 02/12/21 11:28 Lymphocytes % (Manual) Cancelled 02/12/21 11:28 Prolymphocyte % Cancelled 02/12/21 11:28 Reactive Lymphs % (Man) Cancelled 02/12/21 11:28 Monocytes % (Manual) Cancelled 02/12/21 11:28 Eosinophils % (Manual) Cancelled 02/12/21 11:28 Basophils % (Manual) Cancelled 02/12/21 11:28 Metamyelocytes % (Man) Cancelled 02/12/21 11:28 Myelocytes % (Man) Cancelled 02/12/21 11:28 Promyelocytes % (Man) Cancelled 02/12/21 11:28 Blast Cells % (Manual) Cancelled 02/12/21 11:28 Plasma Cell % (Manual) Cancelled 02/12/21 11:28 Other Cells % Cancelled 02/12/21 11:28 Nucleated RBC % Cancelled 02/12/21 11:28 Neutrophils # (Manual) Cancelled 02/12/21 11:28 Band Neutrophils # Cancelled 02/12/21 11:28 Total Absolute Neuts Cancelled 02/12/21 11:28 Lymphocytes # (Manual) Cancelled 02/12/21 11:28 Prolymphocyte # Cancelled 02/12/21 11:28 Reactive Lymphs # Cancelled 02/12/21 11:28 Total Abs Lymphocytes Cancelled 02/12/21 11:28 Monocytes # (Manual) Cancelled 02/12/21 11:28 Eosinophils # (Manual) Cancelled 02/12/21 11:28 Basophils # (Manual) Cancelled 02/12/21 11:28 Metamyelocytes # (Man) Cancelled 02/12/21 11:28 Myelocytes # (Manual) Cancelled 02/12/21 11:28 Promyelocytes # (Man) Cancelled 02/12/21 11:28 Blast Cells # (Man) Cancelled 02/12/21 11:28 Plasma Cell # (Manual) Cancelled 02/12/21 11:28 Other Cells # Cancelled 02/12/21 11:28 Nucleated RBCs # (Man) Cancelled 02/12/21 11:28 Hypersegmented Neuts Cancelled 02/12/21 11:28 Hyposegmented Neuts Cancelled 02/12/21 11:28 Hypogranular Neuts Cancelled 02/12/21 11:28 Large Granular Lymphs Cancelled 02/12/21 11:28 # Lrg Granular Lymphs Cancelled 02/12/21 11:28 Hairy Cells Cancelled 02/12/21 11:28 Smudge Cells Cancelled 02/12/21 11:28 Toxic Granulation Cancelled 02/12/21 11:28 Toxic Vacuolation Cancelled 02/12/21 11:28 Dohle Bodies Cancelled 02/12/21 11:28 Alex Rods Cancelled 02/12/21 11:28 Platelet Estimate Cancelled 02/12/21 11:28 Hypogranular Platelets Cancelled 02/12/21 11:28 Clumped Platelets Cancelled 02/12/21 11:28 Giant Platelets Cancelled 02/12/21 11:28 Platelet Satelliting Cancelled 02/12/21 11:28 RBC Morphology Cancelled 02/12/21 11:28 Polychromasia Cancelled 02/12/21 11:28 Hypochromasia Cancelled 02/12/21 11:28 Poikilocytosis Cancelled 02/12/21 11:28 Basophilic Stippling Cancelled 02/12/21 11:28 Anisocytosis Cancelled 02/12/21 11:28 Microcytosis Cancelled 02/12/21 11:28 Macrocytosis Cancelled 02/12/21 11:28 Spherocytes Cancelled 02/12/21 11:28 Pappenheimer Bodies Cancelled 02/12/21 11:28 Sickle Cells Cancelled 02/12/21 11:28 Target Cells Cancelled 02/12/21 11:28 Tear Drop Cells Cancelled 02/12/21 11:28 Ovalocytes Cancelled 02/12/21 11:28 Stomatocytes Cancelled 02/12/21 11:28 Tucker-[place] Bodies Cancelled 02/12/21 11:28 Echinocytes Cancelled 02/12/21 11:28 Acanthocytes (Spur) Cancelled 02/12/21 11:28 Rouleaux Cancelled 02/12/21 11:28 RBC Agglutinates Cancelled 02/12/21 11:28 Schistocytes Cancelled 02/12/21 11:28 RBC Morph Comment Cancelled 02/12/21 11:28 Sezary Cell Cancelled 02/12/21 11:28 Sodium 139 mmol/L (136-145) 02/12/21 11:28 Potassium 5.0 mmol/L (3.5-5.1) 02/12/21 11:28 Chloride 98 mmol/L (98-107) 02/12/21 11:28 Carbon Dioxide 41 mmol/L (21-32) H* 02/12/21 11:28 Anion Gap 0 (3-11) L 02/12/21 11:28 BUN 14 mg/dl (7-18) 02/12/21 11:28 Creatinine 0.53 mg/dl (0.6-1.2) L 02/12/21 11:28 Est Cr Clr Drug Dosing 171.4 ml/min 02/12/21 11:28 Est GFR ( Amer) 122.2 ml/min 02/12/21 11:28 Est GFR (Non-Af Amer) 105.4 ml/min 02/12/21 11:28 BUN/Creatinine Ratio 26.0 (10-20) H 02/12/21 11:28 Glucose 258 mg/dl (70-99) H 02/12/21 11:28 POC Glucose 174 mg/dl (70-99) H 02/13/21 11:37 Estimat Average Glucose 235 mg/dl 02/12/21 11:28 Hemoglobin A1c 9.8 % (4.5-5.6) H 02/12/21 11:28 Calcium 9.0 mg/dl (8.5-10.1) 02/12/21 11:28 Magnesium 2.1 mg/dl (1.8-2.4) 02/12/21 11:28 Total Bilirubin 1.0 mg/dl (0.2-1) 02/12/21 11:28 AST 14 U/L (15-37) L 02/12/21 11:28 ALT 11 U/L (12-78) L 02/12/21 11:28 Alkaline Phosphatase 144 U/L (45-117) H 02/12/21 11:28 Troponin I < 0.015 ng/ml (0-0.045) 02/12/21 11:28 NT-Pro-B Natriuret Pep 400 pg/ml (0-900) 02/12/21 11:28 Total Protein 6.9 gm/dl (6.4-8.2) 02/12/21 11:28 Albumin 3.2 gm/dl (3.4-5.0) L 02/12/21 11:28 Globulin 3.7 gm/dl (2.5-4.0) 02/12/21 11:28 Albumin/Globulin Ratio 0.9 (0.9-2) 02/12/21 11:28 COVID-19 Eval Order Covid19 at [facility] 02/12/21 11:51 SARS-CoV-2 (PCR) NEGATIVE (Negative) 02/12/21 11:51 Hepatitis C Ab Screen Neg (Neg) 02/12/21 12:16 Hip/Pelvis X-Ray 02/12/21 16:02 XR hip LT 2V w pelvis HISTORY: 55 years-old Female left lateral hip pain acute left-sided hip pain COMPARISON: None TECHNIQUE: AP view of the pelvis with 2 views of the left hip FINDINGS: IUD of the mid pelvis. Mild osteoarthritis of the hips. No acute fracture, dislocation or avascular necrosis. Unremarkable soft tissues. IMPRESSION: No acute fracture. ACT 112: Negative or not required by law. The above report was generated using voice recognition software. It may contain grammatical, syntax or spelling errors. Electronically signed by: Eduin Briseno M.D. 02/12/2021 5:22 PM Knee X-Ray 02/13/21 11:49 LEFT KNEE 2 VIEWS CLINICAL HISTORY: Left knee pain. FINDINGS: AP and crosstable lateral views of left knee are obtained. No prior studies are available for comparison at the time of dictation. The skeletal structures are osteopenic. No acute fracture is identified. Varus deformity is noted. There is moderate degenerative narrowing at the medial and patellofemoral compartments. There are large medial marginal osteophytes and patellar enthesophytes. A calcified fabella is incidentally noted. There is a small joint effusion. Soft tissue edema is present throughout the imaged left lower extremity. IMPRESSION: 1. Soft tissue swelling and small joint effusion with no acute bony abnormality identified. 2. Osteopenia with varus deformity and degenerative change as above. Electronically signed by: Nikunj Alan M.D. 02/13/2021 12:37 PM
[2021-02-13] MEDS ORDERED: methylPREDNISolone acetate 80 MG/ML VIAL IA ONE (13:20)
[2021-02-13] MEDS ORDERED: ETHYL CHLORIDE AER SPR 100 ML CAN EXT ONE (13:20)
[2021-02-13] MEDS ORDERED: BUPIVACAINE/EPINEPHRINE 0.25% 1:200,000 30 ML VIAL INFIL ONE (13:20)
--- NOTE | 2021-02-13 18:14 | Hospitalist Progress Note ---
Date of Service February 13, 2021 Assessment & Plan (1) Chronic respiratory failure: CT chest - PE protocol - neg for PE. Neg for pneumonia or effusion. RLL infiltrate is CHRONIC - multiple CT chest reports from [facility] indicate this has been chronic at least for 1-2 years or longer. Chronic resp failure w/ hypoxia/hypercarbia likely OHS, Pulmonary HTN, restrictive lung disease from morbid obesity, etc. Uncertain if she has ever had PFTs to check for obstructive lung disease. Acutely she reports worsening dyspnea with weight gain. This would argue for decompensated diastolic CHF. Will give 1mg extra of bumex IV today and re-eval tomorrow. Daily weights on standing scale. Continue Trilogy at HS (Trilogy machine is at bedside). (2) Obesity hypoventilation syndrome: Trilogy at HS. NC O2 during the day. (3) Chronic diastolic (congestive) heart failure: With possible acute decompensation. Give extra bumex 1mg IV x 1. Daily weights. Continue coreg. last echo - 11/05/20 - [facility] - EF 65%, normal valves, normal RV function. repeat BMP in am. (4) Diabetes type 2, uncontrolled: A1c 9.8%. pharmacy consulted for assistance with glycemic control. cont basal-bolus insulin. (5) Hypertension: controlled with current meds (6) Depression: cont home meds (7) Acid reflux: PPI (8) Hypothyroidism: cont Synthroid 150mcg daily check TSH (9) Abnormal uterine bleeding: would need to get records from [facility] for details on management of this issue s/p IUD for such earlier this year uncertain if patient had uterine biopsy check ferritin in am (10) Morbid obesity with BMI of 50.0-59.9, adult: BMI 55 (11) H/O: iron deficiency anemia: check ferritin in am give IV venofer if low (12) Abnormal CT scan, chest: RLL abnormality -chronic- see chronic resp failure above (13) Trochanteric bursitis of left hip: orthopedic consultation appreciated to receive steroid injection for such (14) DVT prophylaxis: lovenox 40mg BID will need PT, OT Admission and Anticipated Discharge Date Admission Date: February 12, 2021 Subjective patient reports a very complicated recent medical history. has had hospital stays in [facility], [facility], and [facility] since September 26 was hospitalized at [place] sometime earlier this spring for severe vaginal bleeding was ultimately transferred to [place] - IUD was placed she is uncertain if uterine bx was performed bleeding improved s/p IUD but she continues to get "my periods" she landed in what sounds like a SNF near [facility] for rehab then readmitted to hospital in [place] (uncertain if SNF was pre[place] or post[place]) the [place] stay was due to hyperkalemia requiring temporary dialysis hyperkalemia was iatrogenic from K supplementation?? after [place] stay went to rehab again in SNF in [place] about 1-2 weeks ago was d/c from SNF to her home in [place] she thinks her d/c weight was 300 or 305 pounds since discharge she has been very short of breath and has gained weight quickly despite taking bumex 1mg daily has also had LE edema has been on NC O2 since ~2004 uses Trilogy at night-time she also has had left hip and left knee pain for several months or longer telemetry since admission wnl Review of Systems Constitutional: + fatigue and + weakness; no fever, no chills and no anorexia Ear, Nose, Mouth, Throat: no sore throat Respiratory: + cough and + dyspnea on exertion; no hemoptysis and no sputum production Cardiovascular: + dyspnea on exertion and + edema; no chest pain and no dyspnea at rest Gastrointestinal: no abdominal pain, no nausea and no vomiting Physical Exam Constitutional: + morbidly obese; no acute distress and no altered mental status ENMT: external ear and nose normal, oropharynx normal Respiratory: no respiratory distress Auscultation: + diminished lung sounds (bases) and + rales (soft rales, bases only); no wheezes Cardiovascular: Rate/Rhythm: regular rate and regular rhythm Heart Sounds: normal S1 and normal S2; no murmur Vessels: posterior tibial pulses present and dorsalis pedis pulses present; no JVD Extremities: + edema (1-2+ b/l ) Gastrointestinal (Abdomen): normal bowel sounds, soft, nontender, no hepatosplenomegaly Musculoskeletal: tender to palpation over left trochanteric bursal area Skin: no rashes Neurologic: moves all extremities Psychiatric: Orientation: alert and oriented x 3 Results & Data Results & Data ([facility]) Vital Signs (Past 12 Hours) Vital Signs Temp Pulse Resp BP BP Pulse Ox 02/13/21 15:00 36.6 C 85 20 124/71 93 02/13/21 11:00 36.8 C 22 114/70 93 02/13/21 07:07 84 18 97 02/13/21 07:00 36.4 C L 84 22 144/74 H 95 Laboratory Results Laboratory Results - last 24 hr 02/12/21 02/12/21 02/13/21 11:28 20:18 07:32 POC Glucose 160 H 148 H Estimat Average Glucose 235 Hemoglobin A1c 9.8 H 02/13/21 02/13/21 11:37 16:46 POC Glucose 174 H 206 H Estimat Average Glucose Hemoglobin A1c labs from 02/12 - Cr wnl; K 5; Hb 10.5 PG Care Time/CCT Total # of Minutes Spent Total Time Spent with Patient: Total time spent is greater than 50% in coordination of care (as documented) at patient's floor/unit and/or counseling patient: Coding Level of Care Code 82130 Subseq Hosp Care Lvl 3 Diagnoses Chronic respiratory failure J96.11; J96.12 Respiratory failure complication: hypoxia and hypercapnia Obesity hypoventilation syndrome E66.2 Chronic diastolic (congestive) heart failure I50.32 Diabetes type 2, uncontrolled E11.65 Glycemic state: with hyperglycemia Hypertension I10 Hypertension type: essential hypertension Depression F32.9 Depression Type: unspecified Acid reflux K21.9 Esophagitis presence: without esophagitis Hypothyroidism E03.9 Hypothyroidism type: acquired Abnormal uterine bleeding N93.9 Morbid obesity with BMI of 50.0-59.9, adult E66.01; Z68.43 H/O: iron deficiency anemia Z86.[address] scan, chest R93.89 Trochanteric bursitis of left hip M70.62 DVT prophylaxis Z29.9 (1) Chronic respiratory failure Respiratory failure complication: hypoxia and hypercapnia Qualified Code(s): J96.11 - Chronic respiratory failure with hypoxia; J96.12 - Chronic respiratory failure with hypercapnia (2) Depression Depression Type: unspecified Qualified Code(s): F32.9 - Major depressive di sorder, single episode, unspecified (3) Hypothyroidism Hypothyroidism type: acquired Qualified Code(s): E03.9 - Hypothyroidism, unspecified (4) Diabetes type 2, uncontrolled Glycemic state: with hyperglycemia Qualified Code(s): E11.65 - Type 2 diabetes mellitus with hyperglycemia (5) Acid reflux Esophagitis presence: without esophagitis Qualified Code(s): K21.9 - Gastro- esophageal reflux disease without esophagitis (6) Hypertension Hypertension type: essential hypertension Qualified Code(s): I10 - Essential (primary) hypertension
[2021-02-13] MEDS ORDERED: BUMETANIDE 1 MG in SYRINGE 0 ML IV ONE (18:45)
[2021-02-13] MEDS: INSULIN GLARGINE SOLOSTAR 100 UNITS/ML 3 ML PEN SC SCH (20:56)
[2021-02-14] MEDS: ACETAMINOPHEN 325 MG TAB PO PRN (05:12)
[2021-02-14] MEDS: LEVOTHYROXINE SODIUM 150 MCG TABLET PO SCH (05:51)
[2021-02-14] MEDS: ENOXAPARIN INJ 40 MG/0.4 ML SYR SQ SCH ×2 (05:51→17:05)
[2021-02-14 06:49] LABS: Hematocrit (blood only) 33.7 % (37-47); Hemoglobin 9.7 g/dL (12.0-16.0); Mean Corpuscular Hemoglobin 26.9 pg (25-34); Mean Corpuscular Hgb Conc 28.8 g/dL (32-36); Mean Corpuscular Volume 93.4 fL (80-100); Mean Platelet Volume 11.2 fL (7.4-10.4); Platelet Count 225 K/uL (130-400); RDW Coefficient of Variation 15.5 % (11.5-14.5); RDW Standard Deviation 52.5 fL (36.4-46.3); Red Blood Count 3.61 M/uL (4.2-5.4); White Blood Count 8.21 K/uL (4.8-10.8)
--- NOTE | 2021-02-14 07:07 | Orthopedic Progress Note ---
Date of Service February 14, 2021 Assessment & Plan (1) Trochanteric bursitis, left hip: discussed care with patient she would like to proceed with left hip troch bursa injection. I discussed with Dr Tompkins with her history of diabetes and felt it should be ok to give her the injection. discussed with patient that it can sometimes elevate her BSG so will monitor those as well over the next few days. she can cont with Ice prn. WBAT, PT on outpatient basis as well. she can f/u in the office on as needed basis. Admission and Anticipated Discharge Date Admission Date: February 12, 2021 Supervising Physician Co-Signing Physician Notes Patient seen and examined this morning. Agree with KRYSTLE Huggins's note as above. Greater trochanteric bursa steroid injection was performed this morning. No relief noted yet. Advised patient that it can take about a week for the steroid to fully kick in and provide pain relief. Orthopedics will sign off at this time. Follow-up on an as-needed basis. Subjective c/o left hip pain, mostly over lateral aspect of her hip. denies any radicular symptoms. denies any injuries, states pain has been there for a few years, worsening lately Physical Exam Physical Exam: Vital Signs Temp 37.2 C 02/14/21 04:28 Pulse 88 02/14/21 04:28 Resp 18 02/14/21 04:28 BP 119/68 02/14/21 04:28 Pulse Ox 96 02/14/21 04:28 Intake & Output 02/13/21 02/14/21 02/14/21 18:59 06:59 18:59 Intake Total 515 / 815 300 / 815 Balance 515 / 815 300 / 815 Weight 142.5 kg 145.6 kg Intake: Oral 515 / 815 300 / 815 Other: # Unmeasured Voi ds 2 Weight Measureme nt Method Built in [facility] Constitutional: WD/WN, vitals as above no acute distress Musculoskeletal: Hip: + hip abnormal to inpsection (tenderness present over troch bursa area); no deformity, no effusion, no skin erythema, no ecchymosis, normal ROM of hip and log roll test negative Results & Data ([facility]) Vital Signs (Past 12 Hours) Vital Signs Temp Pulse Resp BP Pulse Ox 02/14/21 04:28 37.2 C 88 18 119/68 96 05/21/21 23:00 37 C 91 H 18 121/78 91 02/13/21 19:48 91 H 20 92
[2021-02-14] MEDS: BUDESONIDE 0.5 MG/2 ML VIAL (PULMICORT) INH SCH ×2 (07:08→20:02)
[2021-02-14 07:09] LABS: BUN Creatinine Ratio 21.2 (10-20); Creatinine Clr Calc Pharmacy 168.4 ml/min; Est GFR (African American) 122.2 ml/min; Est GFR (Non-African American) 105.4 ml/min
[2021-02-14 07:16] LABS: Ferritin 5.3 ng/ml (8-388); Thyroid Stimulating Hormone 0.57 uIu/ml (0.300-4.500)
--- NOTE | 2021-02-14 07:19 | Procedure Note ---
Procedure Note Date of Service February 14, 2021 Note Joint Injection Procedure Note PRE-OP DIAGNOSIS: Left hip trochanteric bursitis POST-OP DIAGNOSIS: Same PROCEDURE: Left hip trochanteric bursa injection Performing Provider: Akbar Huggins PA-C Supervising Physician (if applicable): Dr Sergei El Procedure: The area was prepped in the usual sterile manner. The needle was inserted into the left hip troch bursa region and 4cc of 0.25% Bupivicaine mixed with 1 cc of 80mg Methylprednisolone was injected. There were no complications during this procedure. Followup: The patient tolerated the procedure well without complications. Standard post-procedure care is explained and return precautions are given. She was educated that the injection can cause her BSG to be elevate for a few days and will closely monitor. Coding
[2021-02-14] MEDS: busPIRone 15 MG TAB PO SCH ×3 (09:07→21:22)
[2021-02-14] MEDS: ATORVASTATIN 20 MG TAB PO SCH (09:07)
[2021-02-14] MEDS: ARIPiprazole 15 MG TAB PO SCH (09:07)
[2021-02-14] MEDS: BUMETANIDE 1 MG TAB PO SCH (09:07)
[2021-02-14] MEDS: acetaZOLAMIDE 250 MG TAB PO SCH ×2 (09:07→17:05)
[2021-02-14] MEDS: CYANOCOBALAMIN 500 MCG TABLET (VITAMIN B-12) PO SCH (09:08)
[2021-02-14] MEDS: clonazePAM 0.5 MG TAB PO SCH ×2 (09:08→15:02)
[2021-02-14] MEDS: PANTOprazole 40 MG TAB PO SCH (09:08)
[2021-02-14] MEDS: carvediloL 12.5 MG TAB PO SCH ×2 (09:08→21:22)
[2021-02-14] MEDS: PARoxetine HCL 10 MG TAB PO SCH (09:08)
[2021-02-14] MEDS: NYSTATIN POWDER 15GM BTL EXT SCH (09:09)
[2021-02-14] MEDS: POTASSIUM CHLORIDE 10 MEQ TABCR PO SCH (09:09)
[2021-02-14] MEDS: INSULIN ASPART 100 UNITS/ML 3 ML PEN SC SCH ×4 (09:15→21:22)
[2021-02-14] MEDS ORDERED: IRON SUCROSE 200 MG in 0.9 % SODIUM CHLORIDE 100 ML IV SCH (14:00)
[2021-02-14 16:25] LABS: Base Excess VBG 17.1 mEq/L; Oxygen Saturation VBG 91.3 %; pH VBG 7.26 (7.36-7.41)
[2021-02-14] MEDS ORDERED: LACTULOSE SYRUP 30 GM/45 ML UDP PO STA (17:32)
[2021-02-14] MEDS: ALBUT/IPRATROP 3MG/0.5MG NEB 3 ML VIAL INH PRN (20:03)
[2021-02-14 20:06] LABS: Base Excess VBG 19.9 mEq/L; Oxygen Saturation VBG 63.5 %; pH VBG 7.38 (7.36-7.41)
[2021-02-14] MEDS: INSULIN GLARGINE SOLOSTAR 100 UNITS/ML 3 ML PEN SC SCH (21:23)
[2021-02-14] MEDS: clonazePAM 1 MG TAB PO SCH (21:30)
--- NOTE | 2021-02-14 23:20 | Hospitalist Progress Note ---
Date of Service February 14, 2021 Assessment & Plan (1) Acute on chronic respiratory failure with hypoxia and hypercapnia: acute component - suspect initial lethargy from development of hyperammonemia, which will worsen her respiratory drive and then lead to hypercarbia. further, when her Trilogy machine was first brought to hospital it was NOT WORKING. this would suggest that in the days leading up to this admission - even though she reported using the Trilogy - that it was not providing benefit. a NEW Trilogy machine was dropped off yesterday by the supplier and she was compliant with such last night. when the CO2 returned >100 I immediately placed her on Trilogy this afternoon. repeat VBG with marked improvement in CO2 (111 to 85 with resolution of resp acidosis). Cont Trilogy rest of evening. Diamox BID x 3 days for contraction alkalosis. Treat the elevated ammonia level - see below. (2) Hepatic encephalopathy: asterixis on exam, lethargy, etc. all c/w hepatic encephalopathy. ammonia level returned high at 70. lactulose 30gm x 1 now. records reviewed -- abd u/s in January 2017 done through [facility] showed severe hepatomegaly and severe fatty liver concerning for RAMIREZ. she may indeed have RAMIREZ cirrhosis at this point - check RUQ u/s in am. recheck ammonia level in am. may need standing dose of lactulose. (3) Obesity hypoventilation syndrome: Trilogy at HS. NC O2 during the day. (4) Chronic diastolic (congestive) heart failure: With possible acute decompensation. Weight is about 15-20 pounds above dry weight (she reports 300-305 as dry weight). Good diuresis overnight, but unfortunately she has a marked contraction alkalosis. hold bumex temporarily. diamox 250mg BID x 3 days. Daily weights. Continue coreg. labs in am. last echo - 11/05/20 - [facility] - EF 65%, normal valves, normal RV function. (5) Diabetes type 2, uncontrolled: A1c 9.8%. pharmacy consulted for assistance with glycemic control. cont basal-bolus insulin. (6) Hypertension: controlled with current meds (7) Depression: cont home meds (8) Acid reflux: PPI (9) Hypothyroidism: cont Synthroid 150mcg daily TSH wnl (10) Abnormal uterine bleeding: would need to get records from [facility] for details on management of this issue [id number], per patient self-report -- s/p IUD for such earlier this year after suffering SEVERE vaginal bleeding uncertain if patient had uterine biopsy pelvic us - found such in scanned records from [facility] - uterine thickening to 1cm noted concerning for uterine cancer has severe Fe deficiency likely from this issue as well 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 f/u post-discharge (11) H/O: iron deficiency anemia: ferritin today <10 c/w severe Fe deficiency IV venofer 200mg x 1 today if she tolerates would give additional doses daily while here Fe deficiency - due to vaginal bleeding this winter/spring (12) Abnormal CT scan, chest: RLL abnormality - CHRONIC Multiple CTs of chest in scanned documents from [facility] -- RLL abnormality dates back several years further, by report, has had negative bronchoscopy as well NO PE on CTA this admission (13) Trochanteric bursitis of left hip: orthopedic consultation appreciated s/p steroid injection for such this am (14) Morbid obesity with BMI of 60.0-69.9, adult: BMI 62 (15) Chronic obstructive pulmonary disease: listed as diagnosis in her records, but I do not have PFTs to substantiate this. [id number] she takes chronic inhaled steroids. continue this. f/u with her primary drive tester (María?). (16) Essential tremor: certainly has tremor on exam, but also now has asterixis from high ammonia levels see above (17) DVT prophylaxis: lovenox 40mg BID will need PT, OT patient's acute hypercarbia and elevated ammonia levels required emergent Rx today without intervention she would have had continued decline total time today - 60 minutes, critical care, with Rx of above acute issues Admission and Anticipated Discharge Date Admission Date: February 12, 2021 Subjective tele overnight wnl during the visit she was VERY sleepy she readily admitted to feeling VERY tired and shaky she has been napping frequently today this is not unusual - takes frequent naps at home she DID use her Trilogy machine last night she asks for miralax for constipation breathing is modestly improved from yesterday she received her first dose of Venofer today and tolerated such she received a steroid injection for her L hip bursitis - pain improved with analgesic in the shot Review of Systems Constitutional: + fatigue; no fever, no chills and no anorexia Respiratory: + dyspnea and + dyspnea on exertion; no cough Cardiovascular: + edema; no chest pain Gastrointestinal: no abdominal pain, no nausea and no vomiting Physical Exam Constitutional: + morbidly obese; no acute distress and no altered mental status (Oriented x 3, but VERY sleepy (fell asleep during the visit)) ENMT: external ear and nose normal, oropharynx normal Respiratory: no respiratory distress Auscultation: + diminished lung sounds (bases) and + rales (soft rales, bases only); no wheezes Cardiovascular: Rate/Rhythm: regular rate and regular rhythm Heart Sounds: normal S1 and normal S2; no murmur Vessels: posterior tibial pulses present and dorsalis pedis pulses present; no JVD Extremities: + edema (1-2+ b/l ) Gastrointestinal (Abdomen): normal bowel sounds, soft, nontender, no hepatosplenomegaly Skin: no rashes Neurologic: moves all extremities Motor/Sensory: + asterixis Psychiatric: Orientation: oriented x 3 (But very sleepy ) Results & Data Results & Data ([facility]) Vital Signs (Past 12 Hours) Vital Signs Temp Pulse Resp BP BP Pulse Ox Pulse Ox 02/14/21 20:05 89 24 96 02/14/21 19:58 37.1 C 83 20 127/67 94 02/14/21 15:48 36.6 C 56 L 20 135/51 L 94 02/14/21 14:50 91 02/14/21 11:50 37.2 C 82 20 138/68 90 Pulse Ox Pulse Ox 02/14/21 20:05 02/14/21 19:58 02/14/21 15:48 02/14/21 14:50 92 84 L 02/14/21 11:50 Laboratory Results Laboratory Results - last 24 hr 02/14/21 02/14/21 02/14/21 06:19 06:19 06:19 WBC 8.21 RBC 3.61 L Hgb 9.7 L Hct 33.7 L MCV 93.4 MCH 26.9 MCHC 28.8 L RDW Std Deviation 52.5 H RDW Coeff of Carol 15.5 H Plt Count 225 MPV 11.2 H VBG pH VBG pCO2 VBG pO2 VBG HCO3 VBG O2 Saturation VBG Base Excess Barometric Pressure Sodium 140 Potassium 4.0 D Chloride 95 L Carbon Dioxide 44 H* Anion Gap 1.0 L BUN 11 Creatinine 0.53 L Est Cr Clr Drug Dosing 168.4 Est GFR ( Amer) 122.2 Est GFR (Non-Af Amer) 105.4 BUN/Creatinine Ratio 21.2 H Glucose 113 H POC Glucose Calcium 9.0 Ferritin 5.3 L Ammonia Folate 11.40 TSH 0.570 02/14/21 02/14/21 02/14/21 07:22 11:52 16:14 WBC RBC Hgb Hct MCV MCH MCHC RDW Std Deviation RDW Coeff of Carol Plt Count MPV VBG pH VBG pCO2 VBG pO2 VBG HCO3 VBG O2 Saturation VBG Base Excess Barometric Pressure Sodium Potassium Chloride Carbon Dioxide Anion Gap BUN Creatinine Est Cr Clr Drug Dosing Est GFR ( Amer) Est GFR (Non-Af Amer) BUN/Creatinine Ratio Glucose POC Glucose 114 H 130 H Calcium Ferritin Ammonia 71.0 H Folate TSH 02/14/21 02/14/21 02/14/21 16:14 16:30 19:46 WBC RBC Hgb Hct MCV MCH MCHC RDW Std Deviation RDW Coeff of Carol Plt Count MPV VBG pH 7.26 L 7.38 VBG pCO2 111 H 85 H VBG pO2 62 30 VBG HCO3 48 49 VBG O2 Saturation 91.3 63.5 VBG Base Excess 17.1 19.9 Barometric Pressure 737.1 736.8 Sodium Potassium Chloride Carbon Dioxide Anion Gap BUN Creatinine Est Cr Clr Drug Dosing Est GFR ( Amer) Est GFR (Non-Af Amer) BUN/Creatinine Ratio Glucose POC Glucose 140 H Calcium Ferritin Ammonia Folate TSH 02/14/21 20:26 WBC RBC Hgb Hct MCV MCH MCHC RDW Std Deviation RDW Coeff of Carol Plt Count MPV VBG pH VBG pCO2 VBG pO2 VBG HCO3 VBG O2 Saturation VBG Base Excess Barometric Pressure Sodium Potassium Chloride Carbon Dioxide Anion Gap BUN Creatinine Est Cr Clr Drug Dosing Est GFR ( Amer) Est GFR (Non-Af Amer) BUN/Creatinine Ratio Glucose POC Glucose 131 H Calcium Ferritin Ammonia Folate TSH PG Care Time/CCT Total # of Minutes Spent Total Time Spent with Patient: Total time spent is greater than 50% in coordination of care (as documented) at patient's floor/unit and/or counseling patient: Critical Care Time: Yes Total Critical Care Time: 60 Coding Level of Care Code None Diagnoses Acute on chronic respiratory failure with hypoxia and hypercapnia J96.21; J96.22 Hepatic encephalopathy K72.90 Obesity hypoventilation syndrome E66.2 Chronic diastolic (congestive) heart failure I50.32 Diabetes type 2, uncontrolled E11.65 Glycemic state: with hyperglycemia Hypertension I10 Hypertension type: essential hypertension Depression F32.9 Depression Type: unspecified Acid reflux K21.9 Esophagitis presence: without esophagitis Hypothyroidism E03.9 Hypothyroidism type: acquired Abnormal uterine bleeding N93.9 H/O: iron deficiency anemia Z86.[address] scan, chest R93.89 Trochanteric bursitis of left hip M70.62 Morbid obesity with BMI of 60.0-69.9, adult E66.01; Z68.44 Chronic obstructive pulmonary disease J44.9 COPD type: unspecified COPD Essential tremor G25.0 DVT prophylaxis Z29.9 Additional Codes Critical Care Time - Critical Care Time: Yes ([id number]) Time Spent (min) 60 (1) Depression Depression Type: unspecified Qualified Code(s): F32.9 - Major depressive disorder, single episode, unspecified (2) Hypothyroidism Hypothyroidism type: acquired Qualified Code(s): E03.9 - Hypothyroidism, unspecified (3) Diabetes type 2, uncontrolled Glycemic state: with hyperglycemia Qualified Code(s): E11.65 - Type 2 diabetes mellitus with hyperglycemia (4) Acid reflux Esophagitis presence: without esophagitis Qualified Code(s): K21.9 - Gastro-esophageal reflux disease without esophagitis (5) Hypertension Hypertension type: essential hypertension Qualified Code(s): I10 - Essential (primary) hypertension (6) Chronic obstructive pulmonary disease COPD type: unspecified COPD Qualified Code(s): J44.9 - Chronic obstructive pulmonary disease, unspecified
[2021-02-15] MEDS: ENOXAPARIN INJ 40 MG/0.4 ML SYR SQ SCH ×2 (05:55→17:29)
[2021-02-15] MEDS: LEVOTHYROXINE SODIUM 150 MCG TABLET PO SCH (05:56)
[2021-02-15] MEDS: INSULIN ASPART 100 UNITS/ML 3 ML PEN SC SCH ×4 (07:09→20:22)
[2021-02-15] MEDS: BUDESONIDE 0.5 MG/2 ML VIAL (PULMICORT) INH SCH ×2 (07:35→19:57)
[2021-02-15] MEDS: NYSTATIN POWDER 15GM BTL EXT SCH (08:45)
[2021-02-15 09:50] LABS: BUN Creatinine Ratio 21.4 (10-20); Calcium 9.3 mg/dl (8.5-10.1); Creatinine Clr Calc Pharmacy 140.8 ml/min; Est GFR (African American) 119.3 ml/min; Est GFR (Non-African American) 102.9 ml/min; Potassium 3.3 mmol/L (3.5-5.1)
--- NOTE | 2021-02-15 09:56 | Ultrasound Report ---
ABDOMINAL ULTRASOUND, RIGHT UPPER QUADRANT HISTORY: concern for cirrhosis. COMPARISON: None. FINDINGS: Pancreas: The pancreatic tail is obscured by overlying bowel gas. The remaining portions of the pancr eas are within normal limits. Liver: 19 cm in length. No hepatic masses. No evidence for cirrhosis. Gallbladder: No gallbladder wall thickening. No gallstones. CBD: 4 mm. Right kidney: No hydronephrosis. IMPRESSION: 1. Mild hepatomegaly. No evidence for cirrhosis. 2. Normal gallbladder. No gallstones. ACT 112: Negative or not required by law. Electronically signed by: Riley Fong M.D. 02/15/2021 9:54 AM
[2021-02-15] MEDS: acetaZOLAMIDE 250 MG TAB PO SCH ×2 (10:06→17:24)
[2021-02-15] MEDS: ARIPiprazole 15 MG TAB PO SCH (10:06)
[2021-02-15] MEDS: ATORVASTATIN 20 MG TAB PO SCH (10:07)
[2021-02-15] MEDS: busPIRone 15 MG TAB PO SCH ×3 (10:07→20:21)
[2021-02-15] MEDS: carvediloL 12.5 MG TAB PO SCH ×2 (10:08→20:21)
[2021-02-15] MEDS: clonazePAM 0.5 MG TAB PO SCH ×2 (10:08→14:39)
[2021-02-15] MEDS: CYANOCOBALAMIN 500 MCG TABLET (VITAMIN B-12) PO SCH (10:08)
[2021-02-15] MEDS: POTASSIUM CHLORIDE 10 MEQ TABCR PO SCH (10:09)
[2021-02-15] MEDS: PARoxetine HCL 10 MG TAB PO SCH (10:09)
[2021-02-15] MEDS: PANTOprazole 40 MG TAB PO SCH (10:09)
[2021-02-15] MEDS ORDERED: bisacodyL 5 MG TABEC PO PRN (11:06)
--- NOTE | 2021-02-15 12:20 | XRay Report ---
XR chest 1V portable HISTORY: bilateral wheezes on auscultation COMPARISON: Chest 02/12/2021. FINDINGS: No pneumothorax. The heart remains enlarged. There is mild central pulmonary vascular conge stion without overt edema. This has improved. Right basilar densities remain unchanged. IMPRESSION: 1. Mild central pulmonary vascular congestion without overt edema. This is improved. 2. No change in the cardiomegaly and right basilar densities. ACT 112: Negative or not required by law. Electronically signed by: Riley Fong M.D. 02/15/2021 12:18 PM
[2021-02-15] MEDS: IRON SUCROSE 200 MG in 0.9 % SODIUM CHLORIDE 100 ML IV SCH (12:22)
[2021-02-15] MEDS: ACETAMINOPHEN 325 MG TAB PO PRN (12:24)
--- NOTE | 2021-02-15 13:53 | Hospitalist Progress Note ---
Date of Service February 15, 2021 Assessment & Plan (1) Acute on chronic respiratory failure with hypoxia and hypercapnia: acute component - suspect initial lethargy from development of hyperammonemia, which will worsen her respiratory drive and then lead to hypercarbia. further, when her Trilogy machine was first brought to hospital it was NOT WORKING. this would suggest that in the days leading up to this admission - even though she reported using the Trilogy - that it was not providing benefit. a NEW Trilogy machine was dropped off yesterday by the supplier and she has been compliant with such. when the CO2 returned >100 she was immediately placed on Triology yesterday afternoon repeat VBG with marked improvement in CO2 (111 to 85 with resolution of resp acidosis). Cont Trilogy at night. Diamox BID x 3 days for contraction alkalosis. She is on day #2. Treat the elevated ammonia level - see below. Bilateral inspiratory wheezes on exam today. Chest XR repeated. Improvement was noted in mild central pulmonary vascular congestion without overt edema. No change in cardiomegaly.- Overall she feels her SOB has improved. (2) Hepatic encephalopathy: asterixis on exam yesterday, lethargy, etc.- all c/w hepatic encephalopathy. Asterixis, lethargy improved today. No confusion. ammonia level returned high at 70. Improved to 65.0 today. lactulose 30gm x 1 yesterday. records reviewed -- abd u/s in January 2017 done through [facility] system showed severe hepatomegaly and severe fatty liver concerning for RAMIREZ. U/s of the liver this AM only showed mild hepatomegaly; no evidence of cirrhosis. Continue to monitor. (3) Obesity hypoventilation syndrome: Trilogy at HS. NC O2 during the day. (4) Chronic diastolic (congestive) heart failure: With possible acute decompensation. Weight is about 15-20 pounds above dry weight (she reports 300-305 as dry weight). Weight today is 139.9kg. Down 9.8kg since admission. Good diuresis overnight, but unfortunately she has a marked contraction alkalosis. hold bumex temporarily. diamox 250mg BID x 3 days. On day #2. Daily weights. Continue coreg. Monitor labs. last echo - 11/05/20 - [facility] system - EF 65%, normal valves, normal RV function. (5) Diabetes type 2, uncontrolled: A1c 9.8%. pharmacy consulted for assistance with glycemic control. cont basal-bolus insulin. Patient reports she cannot see the insulin syringe at home to provide adequate dosing of short acting insulin. She does not have support at home to help draw up the proper dosing. She does have basic care aids approximately 9hrs per week, but they are not able to provide assistance with medications. Will consult the inclusion paraeducator. She reports she has an search marketing specialist she follows with [facility]. She has a f/u scheduled there on 02/17/21 which will need rescheduled. (6) Hypertension: controlled with current meds (7) Depression: cont home meds (8) Acid reflux: PPI (9) Hypothyroidism: cont Synthroid 150mcg daily TSH wnl (10) Abnormal uterine bleeding: would need to get records from [facility] for details on management of this issue [id number], per patient self-report -- s/p IUD for such earlier this year after suffering SEVERE vaginal bleeding- She reports bleeding persists, but has improved since IUD placement. She states the IUD was meant to be a temporary fix and she is to f/u at [facility] after discharge. 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 She tolerated this well, so will continue 200mg daily while inpatient. Consider oral supplementation at discharge. Fe deficiency - due to vaginal bleeding this winter/spring (12) Abnormal CT scan, chest: RLL abnormality - CHRONIC Multiple CTs of chest in scanned documents from [facility] -- RLL abnormality dates back several years further, by report, has had negative bronchoscopy as well NO PE on CTA this admission (13) Trochanteric bursitis of left hip: orthopedic consultation appreciated s/p steroid injection for such 02/14/21 (14) Morbid obesity with BMI of 60.0-69.9, adult: BMI 62 (15) Chronic obstructive pulmonary disease: listed as diagnosis in her records, but I do not have PFTs to substantiate this. [id number] she takes chronic inhaled steroids. continue this. f/u with her primary employee training specialist (María?). (16) Essential tremor: Has tremor on exam, but also now had asterixis from high ammonia levels yesterday. Asterixis resolved today. see above (17) DVT prophylaxis: lovenox 40mg BID PT/OT ordered. Disposition: Plan for rehab placement upon discharge. Admission and Anticipated Discharge Date Admission Date: February 12, 2021 Subjective Patient reports her breathing is overall improved. She continues to have vaginal bleeding. She denies f/c or n/v. She c/o some constipation this morning. Patient states she will be placed in a rehab facility in [place] upon discharge although I do not see any case management notes stating that at this time. Review of Systems Constitutional: no fever and no chills Eyes: no worsening vision Ear, Nose, Mouth, Throat: no dizziness Respiratory: no dyspnea Cardiovascular: no chest pain Gastrointestinal: + constipation; no abdominal pain, no nausea and no vomiting Genitourinary: no dysuria Psychiatric: no confusion Physical Exam Physical Exam: Temp Pulse Resp BP Pulse Ox 37.0 C 90 20 146/73 H 94 02/15/21 11:28 02/15/21 11:28 02/15/21 11:28 02/15/21 11:28 02/15/21 11:28 Constitutional: + morbidly obese; no acute distress ENMT: Ears: no hearing impairment Neck: normal visual inspection Respiratory: no respiratory distress and no labored breathing Auscultation: + wheezes (bilateral inspiratory wheezes on exam today) Cardiovascular: Rate/Rhythm: regular rate and regular rhythm Vessels: no JVD Extremities: + edema (non-pitting BLE ) Gastrointestinal (Abdomen): Inspection/Auscultation: normal bowel sounds Percussion/Palpation: abdomen soft; abdomen nontender Neurologic: Motor/Sensory: no asterixis Psychiatric: A+Ox3, euthymic affect Results & Data Results & Data ([facility]) Vital Signs (Past 12 Hours) Vital Signs Temp Pulse Resp BP Pulse Ox 02/15/21 11:28 37.0 C 90 20 146/73 H 94 02/15/21 07:36 95 H 18 96 02/15/21 07:33 36.8 C 77 16 112/66 93 PG Care Time/CCT Total # of Minutes Spent Total Time Spent with Patient: Total time spent is greater than 50% in coordination of care (as documented) at patient's floor/unit and/or counseling patient: Coding Level of Care Code 59577 Subseq Hosp Care Lvl 2 Medical Decision Making High Complexity Diagnoses Acute on chronic respiratory failure with hypoxia and hypercapnia J96.21; J96.22 Hepatic encephalopathy K72.90 Obesity hypoventilation syndrome E66.2 Chronic diastolic (congestive) heart failure I50.32 Diabetes type 2, uncontrolled E11.65 Glycemic state: with hyperglycemia Hypertension I10 Hypertension type: essential hypertension Depression F32.9 Depression Type: unspecified Acid reflux K21.9 Esophagitis presence: without esophagitis Hypothyroidism E03.9 Hypothyroidism type: acquired Abnormal uterine bleeding N93.9 H/O: iron deficiency anemia Z86.[address] scan, chest R93.89 Trochanteric bursitis of left hip M70.62 Morbid obesity with BMI of 60.0-69.9, adult E66.01; Z68.44 Chronic obstructive pulmonary disease J44.9 COPD type: unspecified COPD Essential tremor G25.0 DVT prophylaxis Z29.9 (1) Depression Depression Type: unspecified Qualified Code(s): F32.9 - Major depressive disorder, single episode, unspecified (2) Hypothyroidism Hypothyroidism type: acquired Qualified Code(s): E03.9 - Hypothyroidism, unspecified (3) Diabetes type 2, uncontrolled Glycemic state: with hyperglycemia Qualified Code(s): E11.65 - Type 2 diabetes mellitus with hyperglycemia (4) Chronic obstructive pulmonary disease COPD type: unspecified COPD Qualified Code(s): J44.9 - Chronic obstructive pulmonary disease, unspecified (5) Acid reflux Esophagitis presence: without esophagitis Qualified Code(s): K21.9 - Gastro- esophageal reflux disease without esophagitis (6) Hypertension Hypertension type: essential hypertension Qualified Code(s): I10 - Essential (primary) hypertension
[2021-02-15] MEDS: INSULIN GLARGINE SOLOSTAR 100 UNITS/ML 3 ML PEN SC SCH (20:21)
[2021-02-15] MEDS: POTASSIUM CHLORIDE CRTAB 20 MEQ TABCR PO SCH (20:21)
[2021-02-15] MEDS: clonazePAM 1 MG TAB PO SCH (20:30)
[2021-02-16] MEDS: LEVOTHYROXINE SODIUM 150 MCG TABLET PO SCH (06:01)
[2021-02-16] MEDS: ENOXAPARIN INJ 40 MG/0.4 ML SYR SQ SCH ×2 (06:01→17:41)
[2021-02-16] MEDS: BUDESONIDE 0.5 MG/2 ML VIAL (PULMICORT) INH SCH ×2 (07:10→19:29)
[2021-02-16 08:10] LABS: Hemoglobin 9.7 g/dL (12.0-16.0); Mean Corpuscular Hemoglobin 26.2 pg (25-34); Mean Corpuscular Hgb Conc 28.5 g/dL (32-36); Mean Corpuscular Volume 91.9 fL (80-100); Mean Platelet Volume 11.3 fL (7.4-10.4); Platelet Count 240 K/uL (130-400); RDW Coefficient of Variation 15.6 % (11.5-14.5); RDW Standard Deviation 52.1 fL (36.4-46.3); White Blood Count 9.85 K/uL (4.8-10.8)
[2021-02-16 08:31] LABS: BUN Creatinine Ratio 24.7 (10-20); Calcium 9.1 mg/dl (8.5-10.1); Creatinine Clr Calc Pharmacy 159.4 ml/min; Est GFR (African American) 124.5 ml/min; Est GFR (Non-African American) 107.4 ml/min; Potassium 3.5 mmol/L (3.5-5.1)
[2021-02-16] MEDS: INSULIN ASPART 100 UNITS/ML 3 ML PEN SC SCH ×4 (09:31→20:33)
[2021-02-16] MEDS: ARIPiprazole 15 MG TAB PO SCH (09:34)
[2021-02-16] MEDS: acetaZOLAMIDE 250 MG TAB PO SCH ×2 (09:34→17:12)
[2021-02-16] MEDS: CYANOCOBALAMIN 500 MCG TABLET (VITAMIN B-12) PO SCH (09:35)
[2021-02-16] MEDS: clonazePAM 0.5 MG TAB PO SCH ×2 (09:35→14:37)
[2021-02-16] MEDS: ATORVASTATIN 20 MG TAB PO SCH (09:35)
[2021-02-16] MEDS: carvediloL 12.5 MG TAB PO SCH ×2 (09:35→20:39)
[2021-02-16] MEDS: busPIRone 15 MG TAB PO SCH ×3 (09:35→20:34)
[2021-02-16] MEDS: PARoxetine HCL 10 MG TAB PO SCH (09:36)
[2021-02-16] MEDS: NYSTATIN POWDER 15GM BTL EXT SCH (09:36)
[2021-02-16] MEDS: PANTOprazole 40 MG TAB PO SCH (09:36)
[2021-02-16] MEDS: POTASSIUM CHLORIDE CRTAB 20 MEQ TABCR PO SCH ×2 (09:36→20:35)
[2021-02-16] MEDS: IRON SUCROSE 200 MG in 0.9 % SODIUM CHLORIDE 100 ML IV SCH (09:50)
--- NOTE | 2021-02-16 11:36 | Hospitalist Progress Note ---
Date of Service February 16, 2021 Assessment & Plan (1) Acute on chronic respiratory failure with hypoxia and hypercapnia: Acute component - suspect initial lethargy from development of hyperammonemia, which will worsen her respiratory drive and then lead to hypercarbia. further, when her Trilogy machine was first brought to hospital it was NOT WORKING. this would suggest that in the days leading up to this admission - even though she reported using the Trilogy - that it was not providing benefit. a NEW Trilogy machine was dropped off yesterday by the supplier and she was compliant with such last night. when the CO2 returned >100 Cont Trilogy rest of evening. Diamox BID x 3 days for contraction alkalosis. Treat the elevated ammonia level - see below. (2) Hepatic encephalopathy: asterixis on exam, lethargy, etc. all c/w hepatic encephalopathy. ammonia level returned high at 70. records reviewed -- abd u/s in January 2017 done through [facility] showed severe hepatomegaly and severe fatty liver concerning for RAMIREZ. Appears to be more alert today. US liver unremarkable (3) Obesity hypoventilation syndrome: Trilogy at HS. NC O2 during the day. (4) Chronic diastolic (congestive) heart failure: With suspected acute decompensation. Weight is about 15-20 pounds above dry weight (she reports 300-305 as dry weight). Restart Bumex today diamox 250mg BID x 3 days. Daily weights. Continue coreg. labs in am. last echo - 11/05/20 - [facility] system - EF 65%, normal valves, normal RV function. (5) Diabetes type 2, uncontrolled: A1c 9.8%. pharmacy consulted for assistance with glycemic control. cont basal-bolus insulin. (6) Hypertension: controlled with current meds (7) Depression: cont home meds (8) Acid reflux: PPI (9) Hypothyroidism: cont Synthroid 150mcg daily TSH wnl (10) Abnormal uterine bleeding: would need to get records from [facility] for details on management of this issue [id number], per patient self-report -- s/p IUD for such earlier this year after suffering SEVERE vaginal bleeding uncertain if patient had uterine biopsy pelvic us - found such in scanned records from [facility] - uterine thickening to 1cm noted concerning for uterine cancer has severe Fe deficiency likely from this issue as well will need TAX INVESTIGATOR f/u post-discharge (11) H/O: iron deficiency anemia: ferritin 5.3 IV venofer 200mg x 3 total (2nd dose today) Fe deficiency - suspected secondary due to vaginal bleeding this winter/spring - will need f/u with outpatient TAX INVESTIGATOR (12) Abnormal CT scan, chest: RLL abnormality - CHRONIC Multiple CTs of chest in scanned documents from [facility] -- RLL abnormality dates back several years further, by report, has had negative bronchoscopy as well NO PE on CTA this admission (13) Trochanteric bursitis of left hip: orthopedic consultation appreciated s/p steroid injection 02/14 (14) Morbid obesity with BMI of 60.0-69.9, adult: BMI 62 (15) Chronic obstructive pulmonary disease: listed as diagnosis in her records, but I do not have PFTs to substantiate this. [id number] she takes chronic inhaled steroids. continue this. f/u with her primary natural history collections curator (Gino). (16) DVT prophylaxis: lovenox 40mg BID Repeat PT/OT assessments pending Admission and Anticipated Discharge Date Admission Date: February 12, 2021 Subjective Last bowel movement ?12 days ago per patient but reported on 02/14. No nausea, vomiting, abdominal pain, feeling of constipation or diarrhea. Breathing "come along way", back down to chronic baseline 2LPM O2. She reportedly is back to her baseline status today. No longer lethargic as she has been. No chest pain, cough, fevers, chills Review of Systems Review of Systems: All systems reviewed & are unremarkable except as noted in HPI & below Physical Exam 2 Constitutional: + morbidly obese; + not well nourished, no acute distress and no altered mental status Eyes: + anicteric sclerae; normal pupil size ENMT: external ear and nose normal, oropharynx normal Respiratory: no respiratory distress Auscultation: + diminished lung sounds (bases); no rales and no wheezes Cardiovascular: Rate/Rhythm: regular rate and regular rhythm Heart Sounds: normal S1 and normal S2; no murmur Vessels: no JVD Extremities: + edema (1+ b/l ) Gastrointestinal (Abdomen): normal bowel sounds, soft, nontender, no hepatosplenomegaly Skin: no rashes, warm and dry Neurologic: moves all extremities and awake Psychiatric: Orientation: alert and oriented x 3 Affect: euthymic affect Results & Data Results & Data ([facility]) Vital Signs (Past 12 Hours) Vital Signs Temp Pulse Resp BP BP Pulse Ox 02/16/21 10:35 36.8 C 84 20 122/69 94 02/16/21 09:47 36.7 C 80 16 118/68 94 02/16/21 07:54 36.6 C 81 18 145/68 H 95 02/16/21 07:11 84 18 98 02/16/21 04:00 36.2 C L 83 18 126/64 93 PG Care Time/CCT Total # of Minutes Spent Total Time Spent with Patient: Total time spent is greater than 50% in coordination of care (as documented) at patient's floor/unit and/or counseling patient: Coding Level of Care Code 74739 Subseq Hosp Care Lvl 2 Diagnoses Acute on chronic respiratory failure with hypoxia and hypercapnia J96.21; J96.22 Hepatic encephalopathy K72.90 Obesity hypoventilation syndrome E66.2 Chronic diastolic (congestive) heart failure I50.32 Diabetes type 2, uncontrolled E11.65 Glycemic state: with hyperglycemia Hypertension I10 Hypertension type: essential hypertension Depression F32.9 Depression Type: unspecified Acid reflux K21.9 Esophagitis presence: without esophagitis Hypothyroidism E03.9 Hypothyroidism type: acquired Abnormal uterine bleeding N93.9 H/O: iron deficiency anemia Z86.[address] scan, chest R93.89 Trochanteric bursitis of left hip M70.62 Morbid obesity with BMI of 60.0-69.9, adult E66.01; Z68.44 Chronic obstructive pulmonary disease J44.9 COPD type: unspecified COPD DVT prophylaxis Z29.9 (1) Depression Depression Type: unspecified Qualified Code(s): F32.9 - Major depressive disorder, single episode, unspecified (2) Hypothyroidism Hypothyroidism type: acquired Qualified Code(s): E03.9 - Hypothyroidism, unspecified (3) Diabetes type 2, uncontrolled Glycemic state: with hyperglycemia Qualified Code(s): E11.65 - Type 2 diabetes mellitus with hyperglycemia (4) Chronic obstructive pulmonary disease COPD type: unspecified COPD Qualified Code(s): J44.9 - Chronic obstructive pulmonary disease, unspecified (5) Acid reflux Esophagitis presence: without esophagitis Qualified Code(s): K21.9 - Gastro- esophageal reflux disease without esophagitis (6) Hypertension Hypertension type: essential hypertension Qualified Code(s): I10 - Essential (primary) hypertension
[2021-02-16] MEDS: INSULIN GLARGINE SOLOSTAR 100 UNITS/ML 3 ML PEN SC SCH (20:33)
[2021-02-16] MEDS: clonazePAM 1 MG TAB PO SCH (20:42)
[2021-02-17] MEDS: ENOXAPARIN INJ 40 MG/0.4 ML SYR SQ SCH ×2 (05:56→19:09)
[2021-02-17] MEDS: LEVOTHYROXINE SODIUM 150 MCG TABLET PO SCH (05:58)
[2021-02-17] MEDS: BUDESONIDE 0.5 MG/2 ML VIAL (PULMICORT) INH SCH (07:22)
[2021-02-17] MEDS: ACETAMINOPHEN 325 MG TAB PO PRN (07:28)
[2021-02-17 08:39] LABS: BUN Creatinine Ratio 27.8 (10-20); Calcium 8.7 mg/dl (8.5-10.1); Creatinine Clr Calc Pharmacy 176.5 ml/min; Est GFR (African American) 128.9 ml/min; Est GFR (Non-African American) 111.2 ml/min; Potassium 3.9 mmol/L (3.5-5.1)
[2021-02-17] MEDS: IRON SUCROSE 200 MG in 0.9 % SODIUM CHLORIDE 100 ML IV SCH (09:12)
[2021-02-17] MEDS: carvediloL 12.5 MG TAB PO SCH ×2 (09:13→20:44)
[2021-02-17] MEDS: CYANOCOBALAMIN 500 MCG TABLET (VITAMIN B-12) PO SCH (09:13)
[2021-02-17] MEDS: POTASSIUM CHLORIDE CRTAB 20 MEQ TABCR PO SCH ×2 (09:13→20:43)
[2021-02-17] MEDS: ARIPiprazole 15 MG TAB PO SCH (09:13)
[2021-02-17] MEDS: PARoxetine HCL 10 MG TAB PO SCH (09:13)
[2021-02-17] MEDS: BUMETANIDE 1 MG TAB PO SCH (09:14)
[2021-02-17] MEDS: PANTOprazole 40 MG TAB PO SCH (09:14)
[2021-02-17] MEDS: ATORVASTATIN 20 MG TAB PO SCH (09:14)
[2021-02-17] MEDS: busPIRone 15 MG TAB PO SCH ×3 (09:15→20:44)
[2021-02-17] MEDS: INSULIN ASPART 100 UNITS/ML 3 ML PEN SC SCH ×4 (09:21→20:45)
[2021-02-17] MEDS: clonazePAM 0.5 MG TAB PO SCH ×2 (09:29→14:49)
--- NOTE | 2021-02-17 09:55 | Pharmacy Report ---
Pharmacy Glycemic Short Note 2 - Date of Service February 17, 2021 - Glycemic Short BSG Results (Last 24 hours): 02/16/21 02/16/21 02/16/21 11:45 16:39 20:05 Glucose POC Glucose 149 H 174 H 144 H 02/17/21 02/17/21 07:37 07:51 Glucose 109 H POC Glucose 115 H OUTPATIENT ANTIDIABETIC REGIMEN: * Lantus 25 units qpm * Lispro 1-8u TIDM * A1c: 9.8% ASSESSMENT: 02/17: * Patient's BSGs have been well controlled on current regimen since admission. * BSGs rangin-174 mg/dL over the past 72 hours * Averaging ~ 40 units/day over that time period with 25 units being basal * Fasting BSG well controlled at 115 mg/dL today * No changes necessary at this time 02/13: * Patient admitted yesterday and initiated on home basal regimen. Novolog scale used is based on a weight based moderate stress regimen. * Blood sugars have trended down nicely since yesterday, with a fasting this morning of 148 mg/dL. Patient is tolerating a diet, but intake is low. PLAN FOR INPATIENT GLYCEMIC CONTROL: * Basal insulin * Lantus 25 units SQ qpm * Bolus insulin * NovoLog per scale ACHS or Q6hrs while NPO * Goal Range: Low 110 mg/dL - High 140 mg/dL * Correction Factor: 15 mg/dL/unit * Nutritional / Prandial insulin per carb ratio of 1 unit per 5 grams CHO consumed
[2021-02-17] MEDS: NYSTATIN POWDER 15GM BTL EXT SCH (12:37)
--- NOTE | 2021-02-17 13:23 | Electrocardiogram Report ---
Test Reason : Blood Pressure : / mmHG Vent. Rate : 082 BPM Atrial Rate : 082 BPM P-R Int : 164 ms QRS Dur : 082 ms QT Int : 368 ms P-R-T Axes : 071 043 068 degrees QTc Int : 429 ms Normal sinus rhythm Nonspecific T wave abnormality Abnormal ECG When compared with ECG of 12-FEB-2021 11:35, No significant change was found Confirmed by Caleb Everett ([id number]) on 02/17/2021 1:23:06 PM Referred By: REFERRED SELF Confirmed By:Caleb Everett
--- NOTE | 2021-02-17 19:06 | Hospitalist Progress Note ---
Date of Service February 17, 2021 Assessment & Plan (1) Acute on chronic respiratory failure with hypoxia and hypercapnia: Acute component - suspect multifactorial but mostly secondary to broken trilogy machine. Less likely driven by hepatic encephalopathy despite hyperammonemia given improvement in lethargy without regular bowel movements. Trilogy machine not working when patient brought it in to hospital. Continue with new Trilogy at bedtime (2) Hepatic encephalopathy: Asterixis on exam, lethargy 02/15, now resolved ammonia level returned high at 70. records reviewed -- abd u/s in January 2017 done through [facility] showed severe hepatomegaly and severe fatty liver concerning for RAMIREZ. Continues to be alert and orientated. Suspect encephalopathy mostly secondary to hypercapnia rather than ammonia levels. We will repeat ammonia level in a.m. Start lactulose 20 g twice daily (3) Obesity hypoventilation syndrome: Trilogy at HS. NC O2 PRN during the day - back to baseline. (4) Chronic diastolic (congestive) heart failure: With suspected acute decompensation. Weight is about 15-20 pounds above dry weight (she reports 300-305 as dry weigh t). BNP 400 on admission however given her morbid obesity this may be falsely low indication of her volemic status. Continue Bumex 1 mg p.o. daily. Daily weights. Continue coreg. labs in am. last echo - 11/05/20 - [facility] system - EF 65%, normal valves, normal RV function. (5) Diabetes type 2, uncontrolled: A1c 9.8%. pharmacy consulted for assistance with glycemic control. cont basal-bolus insulin. Discussed with facilities clerk today. She was discharged from previous rehabilitation with basal bolus insulin that she did not understand and she had to drop from vials. Likely patient will need rehabilitation therefore continue basal bolus dosing the should be discharged home on set meal dosing. (6) Hypertension: Well-controlled on current medications with carvedilol 12.5 mg p.o. twice daily, Bumex 1 mg p.o. daily. (7) Depression: Continue paroxetine 10 mg p.o. daily. Regular Klonopin dosing as per home regimen with 0.5 mg p.o. twice daily and 1 mg p.o. at bedtime Continue BuSpar 50 mg p.o. 3 times daily (8) Acid reflux: Continue pantoprazole 40 mg p.o. daily (9) Hypothyroidism: cont levothyroxine 150mcg daily TSH wnl (10) Abnormal uterine bleeding: would need to get records from [facility] for details on management of this issue [id number], per patient self-report -- s/p IUD for such earlier this year after suffering SEVERE vaginal bleeding uncertain if patient had uterine biopsy pelvic us - found such in scanned records from [facility] - uterine thickening to 1cm noted concerning for uterine cancer has severe Fe deficiency likely from this issue as well will need CORPORATE DIRECTOR TALENT ASSESSMENT f/u post-discharge (11) H/O: iron deficiency anemia: ferritin 5.3 IV venofer 200mg x 3 total (last dose today) Fe deficiency - suspected secondary due to vaginal bleeding this winter/spring - will need f/u with outpatient CORPORATE DIRECTOR TALENT ASSESSMENT (12) Abnormal CT scan, chest: RLL abnormality - CHRONIC Multiple CTs of chest in scanned documents from [facility] -- RLL abnormality dates back several years further, by report, has had negative bronchoscopy as well NO PE on CTA this admission (13) Trochanteric bursitis of left hip: orthopedic consultation appreciated s/p steroid injection 02/14 (14) Morbid obesity with BMI of 60.0-69.9, adult: BMI 62 (15) Chronic obstructive pulmonary disease: listed as diagnosis in her records, but no recent PFTs to substantiate this. No acute exacerbation suspected. No wheezing on exam. Continue her routine nebulizer treatments. f/u with her primary dedicated truck driver (María?). (16) DVT prophylaxis: lovenox 40mg BID Repeat PT/OT assessments pending Would recommend patient attend inpatient rehabilitation on discharge if she qualifies. Patient is medically stable for discharge at this time pending discharge plan. Admission and Anticipated Discharge Date Admission Date: February 12, 2021 Subjective No bowel movement overnight. No abdominal pain, nausea or vomiting. No further lethargy. No chest pain. Shortness of breath at baseline. She reports wish for inpatient physical rehabilitation as she does not feel she can manage at home currently. Review of Systems Review of Systems: All systems reviewed & are unremarkable except as noted in HPI & below Physical Exam Constitutional: + morbidly obese; + not well nourished, no acute distress and no altered mental status Eyes: + anicteric sclerae; normal pupil size ENMT: external ear and nose normal, oropharynx normal Respiratory: no respiratory distress Auscultation: + diminished lung sounds (bases); no rales and no wheezes Cardiovascular: Rate/Rhythm: regular rate and regular rhythm Heart Sounds: normal S1 and normal S2; no murmur Vessels: no JVD Extremities: + edema (1+ b/l ) Gastrointestinal (Abdomen): normal bowel sounds, soft, nontender, no hepatosplenomegaly Skin: no rashes, warm and dry Neurologic: moves all extremities and awake Psychiatric: Orientation: alert and oriented x 3 Affect: euthymic affect Results & Data Results & Data ([facility]) Vital Signs (Past 12 Hours) Vital Signs Temp Pulse Resp BP BP Pulse Ox 02/17/21 15:24 36.3 C L 77 18 126/68 94 02/17/21 11:30 36.7 C 82 20 117/71 93 02/17/21 10:59 36.7 C 85 22 132/69 90 02/17/21 07:28 36.7 C 89 18 124/76 94 02/17/21 07:23 82 20 93 PG Care Time/CCT Total # of Minutes Spent Total Time Spent with Patient: Total time spent is greater than 50% in coordination of care (as documented) at patient's floor/unit and/or counseling patient: Coding Level of Care Code 13414 Subseq Hosp Care Lvl 2 Diagnoses Acute on chronic respiratory failure with hypoxia and hypercapnia J96.21; J96.22 Hepatic encephalopathy K72.90 Obesity hypoventilation syndrome E66.2 Chronic diastolic (congestive) heart failure I50.32 Diabetes type 2, uncontrolled E11.65 Glycemic state: with hyperglycemia Hypertension I10 Hypertension type: essential hypertension Depression F32.9 Depression Type: unspecified Acid reflux K21.9 Esophagitis presence: without esophagitis Hypothyroidism E03.9 Hypothyroidism type: acquired Abnormal uterine bleeding N93.9 H/O: iron deficiency anemia Z86.[address] scan, chest R93.89 Trochanteric bursitis of left hip M70.62 Morbid obesity with BMI of 60.0-69.9, adult E66.01; Z68.44 Chronic obstructive pulmonary disease J44.9 COPD type: unspecified COPD DVT prophylaxis Z29.9 (1) Diabetes type 2, uncontrolled Glycemic state: with hyperglycemia Qualified Code(s): E11.65 - Type 2 diabetes mellitus with hyperglycemia (2) Hypertension Hypertension type: essential hypertension Qualified Code(s): I10 - Essential (primary) hypertension (3) Depression Depression Type: unspecified Qualified Code(s): F32.9 - Major depressive disorder, single episode, unspecified (4) Acid reflux Esophagitis presence: without esophagitis Qualified Code(s): K21.9 - Gastro- esophageal reflux disease without esophagitis (5) Hypothyroidism Hypothyroidism type: acquired Qualified Code(s): E03.9 - Hypothyroidism, unspecified (6) Chronic obstructive pulmonary disease COPD type: unspecified COPD Qualified Code(s): J44.9 - Chronic obstructive pulmonary disease, unspecified
[2021-02-17] MEDS: BUDESONIDE 0.25 MG/2 ML VIAL (PULMICORT) INH SCH (20:03)
[2021-02-17] MEDS: INSULIN GLARGINE SOLOSTAR 100 UNITS/ML 3 ML PEN SC SCH (20:44)
[2021-02-17] MEDS: clonazePAM 1 MG TAB PO SCH (20:48)
[2021-02-17] MEDS: LACTULOSE SYRUP 20 GM/30 ML UDC PO SCH (20:48)
[2021-02-18 06:04] LABS: Basophils # (auto) 0.01 K/uL (0-0.2); Basophils % (auto) 0.1 %; Eosinophils # (auto) 0.29 K/uL (0-0.5); Eosinophils % (auto) 3.3 %; Hemoglobin 9.7 g/dL (12.0-16.0); Immature Granulocytes # (auto) 0.02 K/uL (0.00-0.02); Immature Granulocytes % (auto) 0.2 %; Lymphocytes # (auto) 1.97 K/uL (1.2-3.4); Lymphocytes % (auto) 22.3 %; Mean Corpuscular Hemoglobin 26.7 pg (25-34); Mean Corpuscular Hgb Conc 28.5 g/dL (32-36); Mean Corpuscular Volume 93.7 fL (80-100); Mean Platelet Volume 10.7 fL (7.4-10.4); Monocytes # (auto) 0.55 K/uL (0.11-0.59); Monocytes % (auto) 6.2 %; Neutrophils # (auto) 5.98 K/uL (1.4-6.5); Neutrophils % (auto) 67.9 %; Platelet Count 229 K/uL (130-400); RDW Coefficient of Variation 15.8 % (11.5-14.5); RDW Standard Deviation 52.8 fL (36.4-46.3); Red Blood Count 3.63 M/uL (4.2-5.4); White Blood Count 8.82 K/uL (4.8-10.8)
[2021-02-18] MEDS: LEVOTHYROXINE SODIUM 150 MCG TABLET PO SCH (06:04)
[2021-02-18] MEDS: ENOXAPARIN INJ 40 MG/0.4 ML SYR SQ SCH ×2 (06:05→17:26)
[2021-02-18 06:27] LABS: Albumin Level 2.9 gm/dl (3.4-5.0); BUN Creatinine Ratio 31.4 (10-20); Bilirubin Direct 0.2 mg/dl (0-0.2); Est GFR (African American) 127.1 ml/min; Est GFR (Non-African American) 109.6 ml/min; Potassium 3.7 mmol/L (3.5-5.1)
[2021-02-18 06:30] LABS: Bilirubin,Total 0.9 mg/dl (0.2-1); Total Protein 6.6 gm/dl (6.4-8.2)
[2021-02-18] MEDS: ACETAMINOPHEN 325 MG TAB PO PRN (07:26)
[2021-02-18] MEDS: BUDESONIDE 0.25 MG/2 ML VIAL (PULMICORT) INH SCH ×2 (07:40→19:27)
[2021-02-18] MEDS: clonazePAM 0.5 MG TAB PO SCH ×2 (08:46→14:46)
[2021-02-18] MEDS: ATORVASTATIN 20 MG TAB PO SCH (08:46)
[2021-02-18] MEDS: PANTOprazole 40 MG TAB PO SCH (08:46)
[2021-02-18] MEDS: CYANOCOBALAMIN 500 MCG TABLET (VITAMIN B-12) PO SCH (08:47)
[2021-02-18] MEDS: carvediloL 12.5 MG TAB PO SCH ×2 (08:47→20:21)
[2021-02-18] MEDS: PARoxetine HCL 10 MG TAB PO SCH (08:47)
[2021-02-18] MEDS: ARIPiprazole 15 MG TAB PO SCH (08:47)
[2021-02-18] MEDS: BUMETANIDE 1 MG TAB PO SCH (08:47)
[2021-02-18] MEDS: busPIRone 15 MG TAB PO SCH ×3 (08:48→20:28)
[2021-02-18] MEDS: POTASSIUM CHLORIDE CRTAB 20 MEQ TABCR PO SCH ×2 (08:48→20:21)
[2021-02-18] MEDS: LACTULOSE SYRUP 20 GM/30 ML UDC PO SCH ×2 (08:48→20:28)
[2021-02-18] MEDS: INSULIN ASPART 100 UNITS/ML 3 ML PEN SC SCH ×4 (08:53→20:38)
--- NOTE | 2021-02-18 09:08 | Pharmacy Report ---
Pharmacy Glycemic Short Note 2 - Date of Service February 18, 2021 - Glycemic Short BSG Results (Last 24 hours): 02/17/21 02/17/21 02/17/21 11:38 16:38 20:17 Glucose POC Glucose 143 H 159 H 161 H 02/18/21 02/18/21 05:48 08:10 Glucose 102 H POC Glucose 127 H OUTPATIENT ANTIDIABETIC REGIMEN: * Lantus 25 units qpm * Lispro 1-8u TIDM * A1c: 9.8% (02/13/21) ASSESSMENT: 02/18: * BSGs again reasonably well controlled yesterday, 115, 143, 159, and 161 mg/dL * Patient received 50 units of insulin yesterday (50% basal, 50% bolus) * Fasting BSG of 127 mg/dL this morning * Do not anticipate any change today 02/17: * Patient's BSGs have been well controlled on current regimen since admission. * BSGs rangin-174 mg/dL over the past 72 hours * Averaging ~ 40 units/day over that time period with 25 units being basal * Fasting BSG well controlled at 115 mg/dL today * No changes necessary at this time 02/13: * Patient admitted yesterday and initiated on home basal regimen. Novolog scale used is based on a weight based moderate stress regimen. * Blood sugars have trended down nicely since yesterday, with a fasting this morning of 148 mg/dL. Patient is tolerating a diet, but intake is low. PLAN FOR INPATIENT GLYCEMIC CONTROL: * Basal insulin * Lantus 25 units SQ qpm * Bolus insulin * NovoLog per scale ACHS or Q6hrs while NPO * Goal Range: Low 110 mg/dL - High 140 mg/dL * Correction Factor: 15 mg/dL/unit * Nutritional / Prandial insulin per carb ratio of 1 unit per 5 grams CHO consumed PLAN FOR DISCHARGE: * HbA1c elevated at 9.8% * Per senior health educator note: patient would prefer set dose of Lispro with meals, as sliding scale has proved to be difficult * At this time, would suggest Lantus 25 units SC HS and insulin lispro 8 units SC TIDM * Patient to follow-up with [facility] on 03/17 * Support Patient Self-Management * Healthy Lifestyle (diet, exercise, and smoking cessation) * Disease self-management (SMBG) * Prevention of complications (BP, Lipid goals, Immunizations) * Consider outpatient Diabetes Self-Management Education & Support
[2021-02-18] MEDS: NYSTATIN POWDER 15GM BTL EXT SCH (10:03)
--- NOTE | 2021-02-18 19:36 | Hospitalist Progress Note ---
Date of Service February 18, 2021 Assessment & Plan (1) Acute on chronic respiratory failure with hypoxia and hypercapnia: Acute component - suspect multifactorial but mostly secondary to broken trilogy machine. Less likely driven by hepatic encephalopathy despite hyperammonemia given improvement in lethargy without regular bowel movements. Trilogy machine not working when patient brought it in to hospital. Continue with new Trilogy at bedtime (2) Hepatic encephalopathy: Asterixis on exam, lethargy 02/15, now resolved Ammonia decreasing with lactulose records reviewed -- abd u/s in January 2017 done through [facility] showed severe hepatomegaly and severe fatty liver concerning for RAMIREZ. Continues to be alert and orientated. Suspect encephalopathy mostly secondary to hypercapnia rather than ammonia levels. We will repeat ammonia level in a.m. Continue lactulose 20 g twice daily (3) Obesity hypoventilation syndrome: Trilogy at HS. NC O2 PRN during the day - back to baseline. (4) Chronic diastolic (congestive) heart failure: With suspected acute decompensation. Weight is about 15-20 pounds above dry weight (she reports 300-305 as dry jesus ght). BNP 400 on admission however given her morbid obesity this may be falsely low indication of her volemic status. Continue Bumex 1 mg p.o. daily. Daily weights. Continue coreg. last echo - 11/05/20 - [facility] - EF 65%, normal valves, normal RV function. (5) Diabetes type 2, uncontrolled: A1c 9.8%. pharmacy consulted for assistance with glycemic control. cont basal-bolus insulin. Discussed with adult educator today. She was discharged from previous rehabilitation with basal bolus insulin that she did not understand and she had to drop from vials. Likely patient will need rehabilitation therefore continue basal bolus dosing the should be discharged home on set meal dosing. (6) Hypertension: Well-controlled on current medications with carvedilol 12.5 mg p.o. twice daily, Bumex 1 mg p.o. daily. (7) Depression: Continue paroxetine 10 mg p.o. daily. Regular Klonopin dosing as per home regimen with 0.5 mg p.o. twice daily and 1 mg p.o. at bedtime Continue BuSpar 50 mg p.o. 3 times daily (8) Acid reflux: Continue pantoprazole 40 mg p.o. daily (9) Hypothyroidism: cont levothyroxine 150mcg daily TSH wnl (10) Abnormal uterine bleeding: would need to get records from [facility] for details on management of this issue [id number], per patient self-report -- s/p IUD for such earlier this year af ter suffering SEVERE vaginal bleeding uncertain if patient had uterine biopsy pelvic us - found such in scanned records from [facility] - uterine thickening to 1cm noted concerning for uterine cancer has severe Fe deficiency likely from this issue as well will need HOSPITAL CLEANER f/u post-discharge (11) H/O: iron deficiency anemia: ferritin 5.3 IV venofer 200mg x 3 total (last dose 02/17) Fe deficiency - suspected secondary due to vaginal bleeding this winter/spring - will need f/u with outpatient HOSPITAL CLEANER (12) Abnormal CT scan, chest: RLL abnormality - CHRONIC Multiple CTs of chest in scanned documents from [facility] -- RLL abnormality dates back several years further, by report, has had negative bronchoscopy as well NO PE on CTA this admission (13) Trochanteric bursitis of left hip: orthopedic consultation appreciated s/p steroid injection 02/14 (14) Morbid obesity with BMI of 60.0-69.9, adult: BMI 62 (15) Chronic obstructive pulmonary disease: listed as diagnosis in her records, but no recent PFTs to substantiate this. No acute exacerbation suspected. No wheezing on exam. Continue her routine nebulizer treatments. f/u with her primary crisis intervention counselor (Gino). (16) DVT prophylaxis: lovenox 40mg BID Patient is medically stable for discharge at this time pending discharge plan for insurance authorization for inpatient rehab Admission and Anticipated Discharge Date Admission Date: February 12, 2021 Subjective Patient reports having a BM with lactulose. No abdominal pain, nausea or vomiting. No further lethargy. No chest pain. Shortness of breath at baseline. Medically stable planning on inpatient rehabilitation. Review of Systems Review of Systems: All systems reviewed & are unremarkable except as noted in HPI & below Physical Exam Constitutional: + morbidly obese; + not well nourished, no acute distress and no altered mental status Eyes: + anicteric sclerae; normal pupil size ENMT: external ear and nose normal, oropharynx normal Respiratory: no respiratory distress Auscultation: + diminished lung sounds (bases); no rales and no wheezes Cardiovascular: Rate/Rhythm: regular rate and regular rhythm Heart Sounds: normal S1 and normal S2; no murmur Vessels: no JVD Extremities: + edema (1+ b/l ) Gastrointestinal (Abdomen): normal bowel sounds, soft, nontender, no hepatosplenomegaly Skin: no rashes, warm and dry Neurologic: moves all extremities and awake Psychiatric: Orientation: alert and oriented x 3 Affect: euthymic affect Results & Data Results & Data ([facility]) Vital Signs (Past 12 Hours) Vital Signs Temp Pulse Resp BP Pulse Ox 02/18/21 19:28 85 18 95 02/18/21 15:36 36.6 C 84 16 159/77 H 91 02/18/21 07:40 74 20 91 PG Care Time/CCT Total # of Minutes Spent Total Time Spent with Patient: Total time spent is greater than 50% in coordination of care (as documented) at patient's floor/unit and/or counseling patient: Coding Level of Care Code 02992 Subseq Hosp Care Lvl 1 Diagnoses Acute on chronic respiratory failure with hypoxia and hypercapnia J96.21; J96.22 Hepatic encephalopathy K72.90 Obesity hypoventilation syndrome E66.2 Chronic diastolic (congestive) heart failure I50.32 Diabetes type 2, uncontrolled E11.65 Glycemic state: with hyperglycemia Hypertension I10 Hypertension type: essential hypertension Depression F32.9 Depression Type: unspecified Acid reflux K21.9 Esophagitis presence: without esophagitis Hypothyroidism E03.9 Hypothyroidism type: acquired Abnormal uterine bleeding N93.9 H/O: iron deficiency anemia Z86.[address] scan, chest R93.89 Trochanteric bursitis of left hip M70.62 Morbid obesity with BMI of 60.0-69.9, adult E66.01; Z68.44 Chronic obstructive pulmonary disease J44.9 COPD type: unspecified COPD DVT prophylaxis Z29.9 (1) Depression Depression Type: unspecified Qualified Code(s): F32.9 - Major depressive disorder, single episode, unspecified (2) Hypothyroidism Hypothyroidism type: acquired Qualified Code(s): E03.9 - Hypothyroidism, unspecified (3) Diabetes type 2, uncontrolled Glycemic state: with hyperglycemia Qualified Code(s): E11.65 - Type 2 diabetes mellitus with hyperglycemia (4) Chronic obstructive pulmonary disease COPD type: unspecified COPD Qualified Code(s): J44.9 - Chronic obstructive pulmonary disease, unspecified (5) Acid reflux Esophagitis presence: without esophagitis Qualified Code(s): K21.9 - Gastro- esophageal reflux disease without esophagitis (6) Hypertension Hypertension type: essential hypertension Qualified Code(s): I10 - Essential (primary) hypertension
[2021-02-18] MEDS: clonazePAM 1 MG TAB PO SCH (20:21)
[2021-02-18] MEDS: INSULIN GLARGINE SOLOSTAR 100 UNITS/ML 3 ML PEN SC SCH (20:38)
[2021-02-19] MEDS: ENOXAPARIN INJ 40 MG/0.4 ML SYR SQ SCH (05:50)
[2021-02-19] MEDS: LEVOTHYROXINE SODIUM 150 MCG TABLET PO SCH (05:50)
[2021-02-19] MEDS: ONDANSETRON 4 MG OD TAB PO PRN (06:39)
[2021-02-19] MEDS: BUDESONIDE 0.25 MG/2 ML VIAL (PULMICORT) INH SCH (07:55)
[2021-02-19] MEDS: BUMETANIDE 1 MG TAB PO SCH (08:21)
[2021-02-19] MEDS: ATORVASTATIN 20 MG TAB PO SCH (08:22)
[2021-02-19] MEDS: carvediloL 12.5 MG TAB PO SCH (08:22)
[2021-02-19] MEDS: PANTOprazole 40 MG TAB PO SCH (08:22)
[2021-02-19] MEDS: CYANOCOBALAMIN 500 MCG TABLET (VITAMIN B-12) PO SCH (08:22)
[2021-02-19] MEDS: ARIPiprazole 15 MG TAB PO SCH (08:22)
[2021-02-19] MEDS: busPIRone 15 MG TAB PO SCH ×2 (08:22→15:01)
[2021-02-19] MEDS: PARoxetine HCL 10 MG TAB PO SCH (08:23)
[2021-02-19] MEDS: NYSTATIN POWDER 15GM BTL EXT SCH (08:23)
[2021-02-19] MEDS: LACTULOSE SYRUP 20 GM/30 ML UDC PO SCH (08:23)
[2021-02-19] MEDS: INSULIN ASPART 100 UNITS/ML 3 ML PEN SC SCH ×2 (08:27→12:32)
--- NOTE | 2021-02-19 08:41 | Pharmacy Report ---
Pharmacy Glycemic Short Note 2 - Date of Service February 19, 2021 - Glycemic Short BSG Results (Last 24 hours): 02/18/21 02/18/21 02/18/21 12:00 17:00 20:36 POC Glucose 196 H 197 H 170 H 02/19/21 07:56 POC Glucose 121 H OUTPATIENT ANTIDIABETIC REGIMEN: * Lantus 25 units qpm * Lispro 1-8u TIDM * A1c: 9.8% (02/13/21) ASSESSMENT: 02/19: * BSGs elevated throughout the day yesterday, 127, 196, 197, and 170 mg/dL * Will tighten Novolog parameters today * Received 63 units of insulin (25 units of basal and 38 units of prandial/correctional insulin) * Fasting BSG of 121 mg/dL - will utilize Lantus scale this evening to allow for potentially 10% increase in Lantus 02/18: * BSGs again reasonably well controlled yesterday, 115, 143, 159, and 161 mg/dL * Patient received 50 units of insulin yesterday (50% basal, 50% bolus) * Fasting BSG of 127 mg/dL this morning * Do not anticipate any change today PLAN FOR INPATIENT GLYCEMIC CONTROL: * Basal insulin * Lantus 25-28 units SQ qpm (see EHR for details) * Bolus insulin * NovoLog per scale ACHS or Q6hrs while NPO * Goal Range: Low 110 mg/dL - High 140 mg/dL * Correction Factor: 12 mg/dL/unit * Nutritional / Prandial insulin per carb ratio of 1 unit per 4 grams CHO consumed PLAN FOR DISCHARGE: * HbA1c elevated at 9.8% * Per cosmetology educator note: patient would prefer set dose of Lispro with meals, as sliding scale has proved to be difficult * At this time, would suggest Lantus 25 units SC HS and insulin lispro 10 units SC TIDM * Will update throughout admission if insulin needs change * Patient to follow-up with [facility] on 03/17 * Support Patient Self-Management * Healthy Lifestyle (diet, exercise, and smoking cessation) * Disease self-management (SMBG) * Prevention of complications (BP, Lipid goals, Immunizations) * Consider outpatient Diabetes Self-Management Education & Support
[2021-02-19] MEDS: POTASSIUM CHLORIDE CRTAB 20 MEQ TABCR PO SCH (09:29)
[2021-02-19] MEDS: clonazePAM 0.5 MG TAB PO SCH ×2 (09:29→15:01)
--- NOTE | 2021-02-19 15:37 | Discharge Summary ---
Date of Service February 19, 2021 Admission HPI Per Admitting Provider 55-year-old female presents emergency department from her PCPs office via EMS due to concern for hypoxia and shortness of breath. Patient with significant pulmonary history including underlying COPD and wears 2 L/min of oxygen daily. This pt is morbidly obese with bmi 56. Patient was recently in a snf/rehab facility for almost a month([facility]), and her home services have not been restarted. Patient states she feels significantly weak and is concerned for her ability to get around her apartment as well as transfer. She has been having increasing left hip and knee pain and the is the reason she was in rehab in the first place. Patient states she has been wearing her oxygen and using her nebulizer treatments at home however still felt short of breath. She saw her PCP, Dr. Deng today in the office and was initially found to be hypoxic at 74% on her usual 2 L. She was increased to 3 and came up into the 80s, and increased to 4 L and came up into the 90s by the time EMS arrived. On arrival here patient was on 4 L and was in the 90s Patient denies any accompanying chest pain productive cough or fevers. Covid testing is negative and the pt looks non toxic. Admission Exam Per Admitting Provider The patient appeared orbitally obese with a BMI of 56 Vital signs as documented. Head exam is normocephalic atraumatic She is edentulous there is no oral thrush Neck not be assessed for JVD, Jaciel is midline she has no thyromegaly, or carotid bruits. Lungs are clear to auscultation, extremely diminished no wheezes or prolonged expiratory phase is noted Cardiac exam, Rhythm is regular. Very distant. No murmurs, rubs or gallops. Abdominal exam reveals normal bowel sounds, soft non tender, no masses Extremities are nonedematous and both pedal pulses are present Lateral left hip is markedly tender possibly consistent with trochanteric bursitis Neurologic exam is alert and oriented, no focal loss of strength or sensation Skin is without bruises or rashes Psychologically is without concerns for anxiety or depression Principal Diagnosis Multifactorial acute on chronic hypoxic hypercapnic respiratory failure Obesity hyperventilation Discharge Exam Constitutional + morbidly obese; + not well nourished, no acute distress and no altered mental status Eyes + anicteric sclerae; normal pupil size ENMT external ear and nose normal, oropharynx normal Respiratory no respiratory distress Auscultation: + diminished lung sounds (bases); no rales and no wheezes Cardiovascular Rate/Rhythm: regular rate and regular rhythm Heart Sounds: normal S1 and normal S2; no murmur Vessels: no JVD Extremities: + edema (1+ b/l ) Gastrointestinal (Abdomen) normal bowel sounds, soft, nontender, no hepatosplenomegaly Skin no rashes, warm and dry Neurologic moves all extremities and awake Psychiatric Orientation: alert and oriented x 3 Affect: euthymic affect Discharge Data Allergies Allergy/AdvReac Type Severity Reaction Status Date / Time bupropion Allergy Unknown Hives Verified 02/12/21 09:00 Sulfa (Sulfonamide Allergy Unknown Hives Verified 02/12/21 09:00 Antibiotics) Consultations 02/12/21 13:14 ED Decision to Admit Stat 02/12/21 16:24 Consult Orthopedic Surgery Routine Ordered Studies 02/12/21 16:02 CT angio chest PE protocol Stat IMPRESSION: 1. No pulmonary emboli. 2. Opacified venous collaterals of the left chest wall suggestive of chronic occlusion versus stenosis of the left subclavian vein. 3. Cardiomegaly with findings suggestive of pulmonary artery hypertension. 4. Bilateral atelectasis with areas of air trapping. 5. Asymmetric right lung base consolidation may also reflect atelectasis however pneumonia could appear similarly. 6. Trace right pleural effusion. 02/15/21 07:00 US gallbladder Routine IMPRESSION: 1. Mild hepatomegaly. No evidence for cirrhosis. 2. Normal gallbladder. No gallstones. Diabetes Follow up Diabetes Follow-up Needed for HgbA1c >9% Hospital Course (1) Acute on chronic respiratory failure with hypoxia and hypercapnia: Marianne Slater is a 55 year old female admitted to [facility] from February 12-2020 due to shortness of breath and lethargy. She was diagnosed with acute on chronic hypoxic hypercapnic respiratory failure. Suspect this is a result of her Trilogy machine that was broken at home and now replaced and she is to wear this every night and when napping. She is now back to her baseline 2LPM O2 NC during the day. Workup for lethargy also revealed asterixis and hyperammonemia. She has known fatty liver disease and suspect underlying RAMIREZ. Recommend she follows up with gastroenterology for ongoing management of this. She was started on lactulose 30g BID will aim of 1-2 bowel movements daily. Her diabetes remains uncontrolled. HbA1C 9.8. She was confused by insulin regimen when last discharged from rehabilitation. She was unable to draw up insulin from vials and would benefit from a pen with regular meal time insulin dosing rather than carb counting. Please see prescription below. She was also noted left hip pain which was limiting her rehabilitation potential. She was seen by orthopedics and given trochaenteric bursitis steroid injection. She continues to need physical rehabilitation and if being discharged to [place] for further rehab. She has ongoing issues of abnormal uterine bleeding. This has been worked up at [facility]. She was noted to have iron deficiency during her admission contributing towards anemia and shortness of breath. Recommend she follows up with gynecology for this. She was given Venofer 200mg x3 during her admission and to avoid excessive constipation she was not started on oral iron supplementation. Recommend repeat iron studies in approximately 3 months. (2) Hepatic encephalopathy: (3) Obesity hypoventilation syndrome: (4) Chronic diastolic (congestive) heart failure: (5) Diabetes type 2, uncontrolled: (6) Hypertension: (7) Depression: (8) Acid reflux: (9) Hypothyroidism: (10) Abnormal uterine bleeding: (11) H/O: iron deficiency anemia: (12) Abnormal CT scan, chest: (13) Trochanteric bursitis of left hip: (14) Morbid obesity with BMI of 60.0-69.9, adult: (15) Chronic obstructive pulmonary disease: (16) DVT prophylaxis: Total Time Total Time Spent Total Time Spent (In Minutes): 40 Discharge Plan Discharge Items Patient Disposition: Transfer Custodial Fac Reason For Visit: ACUTE ON CHRONIC RESPIRATORY FAILURE W/ HYPOXIA Discharge Diagnosis: Multifactorial acute on chronic hypoxic hypercapnic respiratory failure Obseity hyperventilation Activity: Resume your previous activity Non-emergency contact: Primary Care Provider Call non-emergency contact if: you have any medication questions and your symptoms worsen Follow-up/Referrals: Barbara Deng DO [Primary Care Provider] - Diet: Carb Consistent or DM2 and Low Sodium (2gm) Addtl Attending Provider Instructions: Marianne Slater is a 55 year old female admitted to [facility] from February 12-2020 due to shortness of breath and lethargy. She was diagnosed with acute on chronic hypoxic hypercapnic respiratory failure. Suspect this is a result of her Trilogy machine that was broken at home and now replaced and she is to wear this every night and when napping. She is now back to her baseline 2LPM O2 NC during the day. Workup for lethargy also revealed asterixis and hyperammonemia. She has known fatty liver disease and suspect underlying RAMIREZ. Recommend she follows up with gastroenterology for ongoing management of this. She was started on lactulose 30g BID will aim of 1-2 bowel movements daily. Her diabetes remains uncontrolled. HbA1C 9.8. She was confused by insulin regimen when last discharged from rehabilitation. She was unable to draw up insulin from vials and would benefit from a pen with regular meal time insulin dosing rather than carb counting. Please see prescription below. She was also noted left hip pain which was limiting her rehabilitation potential. She was seen by orthopedics and given trochaenteric bursitis steroid injection. She continues to need physical rehabilitation and if being discharged to [place] for further rehab. She has ongoing issues of abnormal uterine bleeding. This has been worked up at [facility]. She was noted to have iron deficiency during her admission contributing towards anemia and shortness of breath. Recommend she follows up with gynecology for this. She was given Venofer 200mg x3 during her admission and to avoid excessive constipation she was not started on oral iron supplementation. Recommend repeat iron studies in approximately 3 months. Kind regards, Dr Jorje Goins Pending Studies at Discharge: No Stand-Alone Forms: [facility] Smoking Cessation Skilled Items Patient informed of condition?: Yes DNR: No Discharge Level of Care: Acute rehab Communicable Disease: No Discharge Prognosis: Stable Lines: None Urinary Catheter: No Medications and DC Order Prescriptions: New potassium chloride [Klor-Con M20] 20 mEq Tablet,Er Particles/Crystals 20 meq PO BID Qty: 60 RF: 0 lactulose 20 gram/30 mL Solution 30 ml PO BID Qty: 1200 RF: 0 Continued (DME) underpads [Bed Underpads] Pad See Rx Instructions .ROUTE .MEDSUPPLY Qty: 40 RF: 11 (DME) miscellaneous medical supply Misc See Dose Instructions .ROUTE .MEDSUPPLY Qty: 500 RF: 1 (DME) miscellaneous medical supply Misc See Dose Instructions .ROUTE .MEDSUPPLY Qty: 1 RF: 0 atorvastatin 20 mg tablet 20 mg PO DAILY Qty: 90 RF: 3 budesonide 0.5 mg/2 mL suspension for nebulization 0.25 mg inhalation BID Qty: 2 RF: 2 bumetanide 1 mg tablet 1 mg PO DAILY RF: 0 carvedilol 12.5 mg tablet 12.5 mg PO BID RF: 0 levothyroxine 150 mcg tablet 150 mcg PO DAILY RF: 0 nystatin 100,000 unit/gram powder 1 applic topical DAILY RF: 0 ipratropium-albuterol 0.5 mg-3 mg(2.5 mg base)/3 mL solution for nebulization 3 ml inhalation QID PRN (Reason: Shortness Of Breath Or Wheezing) RF: 0 cyclobenzaprine 10 mg tablet 10 mg PO BID PRN (Reason: muscle spasm) Qty: 60 RF: 1 Lantus U-100 Insulin 100 unit/mL solution 25 unit SQ QPM Qty: 40 RF: 5 pantoprazole [Protonix] [address] for susp in packet 40 mg PO DAILY RF: 0 ondansetron HCl [Zofran] 4 mg tablet 4 mg PO Q6H PRN (Reason: Nausea) RF: 0 clonazepam 0.5 mg tablet 0.5 mg PO TID RF: 0 acetaminophen [Tylenol Extra Strength] 500 mg tablet 1,000 mg PO Q6H PRN (Reason: Pain) RF: 0 potassium chloride 10 mEq tablet extended release 10 meq PO DAILY RF: 0 polyethylene glycol 3350 [Miralax] 17 gram/dose powder 17 g PO DAILY PRN (Reason: Constipation) RF: 0 buspirone 15 mg tablet 15 mg PO TID RF: 0 aripiprazole 30 mg tablet 30 mg PO DAILY RF: 0 paroxetine HCl 10 mg tablet 10 mg PO DAILY RF: 0 Changed insulin lispro 100 unit/mL solution See Rx Instructions SQ QID Qty: 10 RF: 5 Discharge Orders: Discharge Order (Routine); Ordered 02/19/21 Ordered By: Jorje Dodd/Other Patient Handouts: Managing Type 2 Diabetes, Understanding Carbo hydrates, Weight Management: Healthy Eating, Eating Heart-Healthy Foods, A1C Admission Data Admit Date/Time: 02/12/21 14:32 Attending Provider: Jorje Goins Admit Provider: Moises Tabares Primary Care Provider: Barbara Deng Other Providers: Manjit Thakkar ; Stephen Mast Other Interventions: Discharge Summary Assessment (RN) Last Done: 02/19/21 14:46 Coding Level of Care Code D/C Day Management >30 mins Diagnoses Acute on chronic respiratory failure with hypoxia and hypercapnia J96.21; J96.22 Hepatic encephalopathy K72.90 Obesity hypoventilation syndrome E66.2 Chronic diastolic (congestive) heart failure I50.32 Diabetes type 2, uncontrolled E11.65 Glycemic state: with hyperglycemia Hypertension I10 Hypertension type: essential hypertension Depression F32.9 Depression Type: unspecified Acid reflux K21.9 Esophagitis presence: without esophagitis Hypothyroidism E03.9 Hypothyroidism type: acquired Abnormal uterine bleeding N93.9 H/O: iron deficiency anemia Z86.[address] scan, chest R93.89 Trochanteric bursitis of left hip M70.62 Morbid obesity with BMI of 60.0-69.9, adult E66.01; Z68.44 Chronic obstructive pulmonary disease J44.9 COPD type: unspecified COPD DVT prophylaxis Z29.9
[2021-02-19] MEDS ORDERED: INSULIN GLARGINE SOLOSTAR 100 UNITS/ML 3 ML PEN SC SCH (21:00)
== END 2021-02-19 17:16 | DRG 441 ==
LOC: ED 10:28 → SUATTDRO 14:32 → 2W 14:32 → 3E 02-18 05:16

== ENCOUNTER 2022-08-06 12:45 | Inpatient (IN) ==
[2022-08-06] MEDS ORDERED: NITROGLYCERIN SL 0.4 MG/TAB TAB SL PRN (12:56)
[2022-08-06] MEDS ORDERED: POLYETHYLENE (MIRALAX) 17 GM PACK PO PRN (12:56)
--- NOTE | 2022-08-06 12:58 | History & Physical Report ---
Date of Service August 06, 2022 Assessment & Plan (1) Acute and chronic respiratory failure: Plan: Acute on chronic hypoxic respiratory failure, multifactorial 2/2 COVID, COPD, OHS -COVID, COPD, OHS management as below Patient is breathing comfortably on BiPAP FiO2 30 at bedside (2) COVID-19: Plan: COVID PNA - Sx onset ~7 days ago - COVID Positive at [place] 08/04/22 - Dex 6mg BID -Patient nearing day 10 of illness, remdesivir deferred Baseline kidney function: <1, normal Admitting creatinine: 0.71 AST/ALT: 48/45 CXR/CTR: pending upload from disk. Serial CXR pending Admitting CRP: 1.94, baricitinib not indicated - AB.41/69/74/44 compensated respiratory acidosis - BiPaP - Icentive Galo, Flutter PRN - Guiafenasin - Prefer dry status,continue bumex IV daily follow for Cr rise (3) Chronic obstructive pulmonary disease: Plan: Mixed obstructive restrictive lung disease History of morbid obesity, BOBBI, OHS, suspected underlying bronchial asthma, COPD. Review of PFTs actually show restrictive disease with a normal ratio. Continue Trelegy/formulary equivalent, nebs every 4 hours as needed, pulmonary toilet BiPAP nightly and as needed PFT: FEV1 moderately reduced, ratio normal, significant air trapping (4) Anxiety: Plan: Mood disorder Continue aripiprazole 30 mg daily Buspirone 15 mg 3 times daily Paroxetine 10 mg daily Suspect patient has some element of tar dive symptoms, this is been worked up as an outpatient and she has been moved to a second generation antipsychotic. 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 3 times daily, lispro - 131.54kg --> weight based: Lantus 22u BID, CF 20, Ratio 6. - BSG goal 110-140, glucose checks ac/hs - +steroids as noted above - glycemic consult for steroids/crit illness/hyperglycemia (6) Acid reflux: Plan: GERD Continue PPI daily - H2 PRN (7) NSTEMI (non-ST elevated myocardial infarction): Plan: NSTEMI vs COVID myocarditis, history of CHF with diastolic dysfunction Reportedly with troponin elevation at [place] from 15 --> [address] changes including T wave inversions or ST segment changes, with no clinical chest pain, and echo with EF 55% and no regional wall motion abnormalities. Heparinized for NSTEMI. -Admission EKG: t wave inversions without st segment changes, sr 11/16/2021 echo: EF 60%, normal size and systolic function, normal wall thickness, no wall motion abnormalities, grade 2 diastolic dysfunction Repeat echo pending Troponin trended Follows with [facility]. Continue Bumex daily metolazone as needed Discussed with cardiology. Reasonable to continue heparin and repeat in-house echo, trend troponin, follow clinically for CP - Continue heparin gtt Nitro as needed Continue metoprolol 50 mg succinate daily - continue bumex daily (8) Hyperlipemia: Plan: Hyperlipidemia, metabolic syndrome, morbid obesity with BMI greater than 60% Continue atorvastatin 20 mg daily DM management as otherwise noted - Weight 131.54kg (9) Hypothyroidism: Plan: Hypothyroidism Continue Synthroid 125 mcg daily TSH/T4 pending. TSH may be abnormal in the setting of acute illness (10) Hypertension: Plan: Prazosin, metoprolol as noted (11) Morbid obesity with BMI of 60.0-69.9, adult: (12) Obesity hypoventilation syndrome: Plan DVT prophylaxis: Heparin eyes CODE STATUS: Full code Disposition: PCU Diet: Heart healthy, low-sodium, DM History of Present Illness Primary Care Provider: DO Deanne Tarangoelio Slater is a 57-year-old female with a past medical history of chronic respiratory failure 2/2 COPD and obesity hypoventilation syndrome, CHF with preserved ejection fraction/diastolic dysfunction, complex sleep apnea, hypertension, hyperlipidemia, fatty liver disease, anxiety who is recommended to transfer to PCU from [facility]. Patient was admitted to [facility] 39 hours prior to transfer for respiratory distress and was found to have COVID. Per report from Dr. Davis patient called EMS for shortness of breath and was subsequently admitted with respiratory distress and improved on BiPAP, but had desaturations to 80 with an increase in PO2 to 78 while off BiPAP. She was found to be COVID-positive on 08/04 with symptoms of cough and shortness of breath for approximately [address] scan showed lymphadenopathy and bilateral diffuse infiltrates with concern for potential consolidative infiltrate in the left lung. She was covered with vancomycin/cefepime for superimposed pneumonia, treated with steroids, and admitted to the hospital. On admission patient had a hs-troponin of 15 which doug to 3280, per their report patient has had no EKG changes including T wave inversions or ST segment changes, has clinically been without any chest pain, an echocardiogram performed at [place] showed an EF of 55% with no wall motion abnormalities. She was treated as an NSTEMI with heparinization with greatest clinical suspicion for COVID myocarditis versus demand ischemia. Case was discussed with pulmonology/ICU. On repeat phone contact patient was reportedly improved and tolerating periods off BiPAP without desaturation. Per signout intubation was not recommended or suspected to be needed around time of transfer, patient pH 7.3 with downtrending PCO2 on BiPAP. Given this patient was excepted for PCU status, with low threshold to transfer to ICU if decompensating. Of note patient was intubated for COPD exacerbation 10/[address] [facility] and required subsequent trach, she was decannulated 12/13/2021. Patient is seen in 1 of 5 on arrival to ICU. She is breathing on BiPAP, does not feel short of breath, and is not in acute distress. She reports that about 7 days ago she developed a cough and some shortness of breath more than normal, usually uses 2 to 3 L of oxygen during the day and AVAPS at night. She reports she had cough, shortness of breath and clear sputum production. This worsened over the next several days until the point where she felt she could not catch her breath and called EMS. She reports she remembers gasping for breath and then passing out, and then waking up in the hospital. She has never had a seizure. She does have tremulous activity and has been worked up for Parkinson's, has some tremor which she thinks may be due to to her aripiprazole. She has not had any chest pain in the last week, and denies chest pain at assessment. No chest pressure or palpitations. Denies fever/chills/sweats at time of assessment. Think she was a little warm earlier in the week. She reports she uses Trelegy at home and albuterol as needed, has been using her albuterol twice a day which produces some improvement in breathing but did not help enough to prevent her from going into the hospital. She does not know what medications were given to her in [place], and is not a good historian of her medications but knows that she does take BuSpar, aripiprazole, insulin medicine, Trelegy inhaler, thyroid tablet, metoprolol. She does not have any abdominal pain, nausea/vomiting/diarrhea currently. She is allergic to sulfa antibiotics and Wellbutrin, has had a rash/hives allergy. Denies history of heart attack/stents. Medical History: Reviewed Medications: Reviewed Surgical History: Reviewed Allergies: Reviewed Social History: Former smoker Code Status: Full code. Surrogate decision maker to be her daughter Allergies Allergy/AdvReac Type Severity Reaction Status Date / Time bupropion Allergy Unknown Hives Verified 07/29/22 11: Sulfa (Sulfonamide Allergy Unknown Hives Verified 07/29/22 11: Antibiotics) Home Medications Medication Instructions Recorded Confirmed Type underpads (Bed Underpads) #40 ea 02/21/20 07/29/22 Rx miscellaneous medical supply #500 ea 03/24/20 07/29/22 Rx ondansetron HCl 4 mg tablet 4 mg PO Q6H PRN Nausea 02/10/21 07/29/22 History (Julio) blood sugar diagnostic (OneTouch #500 ea 10/06/21 07/29/22 Rx Ultra Test strips) buspirone 15 mg tablet 15 mg PO TID #270 tabs 10/30/21 07/29/22 Rx cyclobenzaprine 10 mg tablet 10 mg PO BID PRN muscle spasm #60 10/30/21 07/29/22 Rx tabs budesonide 0.5 mg/2 mL suspension 0.25 mg inhalation BID #120 mL 11/17/21 07/29/22 Rx for nebulization ascorbic acid (vitamin C) 500 mg 500 mg PO BID #60 tabs 01/05/22 07/29/22 Rx tablet aripiprazole 30 mg tablet 30 mg PO DAILY 01/12/22 07/29/22 History atorvastatin 20 mg tablet 20 mg PO DAILY #90 tabs 01/12/22 07/29/22 Rx clonazepam 0.5 mg tablet (Klonopin) See Rx Instructions .Route .COMPLEX 01/12/22 07/29/22 History insulin glargine 100 unit/mL 15 unit (0.15 mL) subcut QPM #40 mL 01/12/22 07/29/22 Rx subcutaneous solution (Lantus U-100 Insulin) insulin syringes (disposable) 1 mL #500 ea 01/12/22 07/29/22 [facility] 01/12/22 07/29/22 Rx Lancets) paroxetine HCl 10 mg tablet 40 mg PO DAILY 01/12/22 07/29/22 History prazosin 1 mg capsule 3 mg PO QPM 01/12/22 07/29/22 History Bed Side Commode #1 ea 01/22/22 07/29/22 Rx Shower Chair #1 ea 01/22/22 07/29/22 Rx leg brace (Knee Support Brace) #1 ea 01/22/22 07/29/22 Rx nebulizer accessories #1 ea 01/22/22 07/29/22 Rx nebulizers #1 ea 01/22/22 07/29/22 Rx triamcinolone acetonide 0.025 % 1 applic topical DAILY PRN rash 01/22/22 07/29/22 Rx topical cream #80 grams ipratropium 0.5 mg-albuterol 3 mg 3 ml inhalation QID PRN Shortness 03/10/22 07/29/22 Rx (2.5 mg base)/3 mL nebulization Of Breath Or Wheezing #180 mL soln [facility] 03/26/22 07/29/22 Rx Ultra Test strips) nystatin 100,000 unit/gram topical 1 applic topical TID PRN yeast 04/19/22 07/29/22 Rx powder infection #60 grams docusate sodium 100 mg tablet 100 mg PO BID constipation #60 tabs 04/27/22 07/29/22 Rx bariatric bath tub #1 ea 05/05/22 07/29/22 Rx metoprolol succinate 50 mg 50 mg PO DAILY #90 tabs 05/10/22 07/29/22 Rx tablet,extended release 24 hr stair lift #1 ea 05/11/22 07/29/22 Rx transfer bench #1 ea 05/11/22 07/29/22 Rx metolazone 5 mg tablet 5 mg PO DAILY #30 tabs 05/20/22 07/29/22 Rx potassium chloride 20 mEq 20 meq PO DAILY PRN weight gain 05/20/22 07/29/22 Rx tablet,extended release #30 tabs insulin lispro 100 unit/mL See Rx Instructions subcut QID #10 05/25/22 07/29/22 Rx subcutaneous solution mL bumetanide 1 mg tablet 3 mg PO DAILY 06/08/22 07/29/22 History miscellaneous medical supply #1 ea 06/08/22 07/29/22 Rx gabapentin 300 mg capsule 300 mg PO TID #90 caps 06/29/22 07/29/22 Rx levothyroxine 125 mcg capsule 125 mcg PO DAILY #90 caps 06/29/22 07/29/22 Rx fluticasone fur. 100 mcg-umeclid 1 inh inhalation DAILY #60 ea 06/30/22 07/29/22 Rx 62.5 mcg-vilant 25 mcg inhalat.powder (Trelegy Ellipta) hydrocodone 5 mg-acetaminophen 325 1 tab PO Q8H PRN pain #30 tabs 07/08/2212/15 Rx mg tablet nystatin 100,000 unit/gram topical 1 applic topical TID #30 grams 07/13/22 07/29/22 Rx ointment cholecalciferol (vitamin D3) 25 25 mcg PO DAILY #90 caps 07/29/22 07/29/22 Rx mcg (1,000 unit) capsule dulaglutide 0.75 mg/0.5 mL 0.75 mg (0.5 mL) subcut Q7D #2 mL 07/29/22 07/29/22 Rx subcutaneous pen injector (Trulicity) pantoprazole 40 mg tablet,delayed 40 mg PO DAILY #90 tabs 07/29/22 Rx release doxycycline hyclate 100 mg capsule 100 mg PO BID #14 caps 08/03/22 08/03/22 Rx prednisone 20 mg tablet 40 mg PO DAILY #14 tabs 08/03/22 08/03/22 Rx Past Med/Surg History Medical History Acid reflux Acne Acute on chronic respiratory failure with hypoxia and hypercapnia Allergic rhinitis Anemia Anxiety Arthritis Chronic diastolic (congestive) heart failure Chronic obstructive pulmonary disease Chronic respiratory failure Depression Diabetes type 2, uncontrolled Essential tremor Fatty liver H/O renal calculi H/O: iron deficiency anemia H/O: pneumonia Hearing difficulty Hepatic encephalopathy Hyperlipemia Hypertension Hypothyroidism Knee osteoarthritis Lung cancer Mass of lung Obesity hypoventilation syndrome Personal history of COVID-19 PTSD (post-traumatic stress disorder) Severe obstructive sleep apnea Urinary incontinence Vitamin D deficiency Surgical History H/O lithotripsy H/O prior ablation treatment H/O tympanostomy History of adenoidectomy History of tonsillectomy Previous section Status post tracheostomy (11/25/21) Family History Father Alcohol abuse Cardiac disorder Diabetes Gallbladder disease Hypertension Depression Mother Anxiety Depression Diabetes Hypertension Stroke Sister Breast cancer Depression Heart disease, congenital Rectal cancer Grandmother (Maternal) Lung disease Grandfather (Maternal) Heart disease Colorectal cancer Prostate cancer Denies family history of Ovarian cancer Myocardial infarction Social History Smoking Status: Former smoker Age Started Using Tobacco: 16; Age Quit Using Tobacco: 29; packs per day: 1; Second Hand Exposure: No; Hx Alcohol Use: No Hx Substance Use: No Preferred Language: Hungarian Communication Ability: Effective Visual Impairment: Limited Hearing Ability: Hard of Hearing Supervisor Feed House Required: No Beliefs That Will Affect Care: None marital status: Legally Current Living Situation: Alone current occupational status: disabled Other Information That Helps Us Care for You: No Feels Safe at Home: Yes Safety Concerns: Feels Safe At This Time Childhood Exposure to Second-Hand Smoke: Yes Diet Comment: Tries to maintain healthy diet. caffeine: Yes (Tea x 2 cups a day.) during the past year weight has: decreased > 10 lbs Dental Care, Regularly: No Physical Activity Frequency: Does not Exercise Physical Activity Frequency Comment: Limited by physical condition Seatbelt Use: always Sunscreen Use: Yes Assistive Devices: None Review of Systems Review of Systems: All systems reviewed & are unremarkable except as noted in HPI & below Physical Exam Physical Exam: General: A&Ox3. NAD. Cooperative. Morbidly obese HEENT: Atraumatic, normocephalic. Vision/hearing grossly intact Pulm: Breath sounds distant, scattered expiratory wheezes are present. Symmetrical chest rise. On BiPAP, no acute respiratory distress Cardiac: RRR, -mrg. Radial pulses intact and symmetrical. Abdominal: Obese, nontender, nondistended, soft. BS present. Extremities: Morbidly obese, sensation soft touch intact in hands and feet. Patient with a resting tremor in hands and feet bilaterally which quiet on action/pegger strength. No clonus. PG Care Time/CCT Total # of Minutes Spent Total Time Spent with Patient: Total time spent is greater than 50% in coordination of care (as documented) at patient's floor/unit and/or counseling patient: Coding Level of Care Code 02847 Initial Inpt Care Lvl 3 Diagnoses Acute and chronic respiratory failure J96.20 COVID-19 U07.1 Chronic obstructive pulmonary disease J44.9 COPD type: unspecified COPD Anxiety F41.9 Diabetes type 2, uncontrolled E11.65 Glycemic state: with hyperglycemia Acid reflux K21.9 Esophagitis presence: without esophagitis NSTEMI (non-ST elevated myocardial infarction) I21.4 Hyperlipemia E78.5 Hypothyroidism E03.9 Hypothyroidism type: acquired Hypertension I10 Hypertension type: essential hypertension Morbid obesity with BMI of 60.0-69.9, adult E66.01; Z68.44 Obesity hypoventilation syndrome E66.2 (1) Hypothyroidism Hypothyroidism type: acquired Qualified Code(s): E03.9 - Hypothyroidism, unspecified (2) Diabetes type 2, uncontrolled Glycemic state: with hyperglycemia Qualified Code(s): E11.65 - Type 2 diabetes mellitus with hyperglycemia (3) Chronic obstructive pulmonary disease COPD type: unspecified COPD Qualified Code(s): J44.9 - Chronic obstructive pulmonary disease, unspecified (4) Acid reflux Esophagitis presence: without esophagitis Qualified Code(s): K21.9 - Gastro- esophageal reflux disease without esophagitis (5) Hypertension Hypertension type: essential hypertension Qualified Code(s): I10 - Essential (primary) hypertension
[2022-08-06] MEDS ORDERED: GLUCOSE 10 TAB/TUBE PO PRN (13:01)
[2022-08-06] MEDS ORDERED: CARBOHYDRATES FOR HYPOGLYCEMIA PO PRN (13:01)
[2022-08-06] MEDS ORDERED: DEXTROSE 50% 50 ML SYRINGE IV PRN (13:01)
[2022-08-06] MEDS ORDERED: GLUCOSE 40% GEL 15 GM TUBE PO PRN (13:01)
[2022-08-06] MEDS ORDERED: GLUCAGON FOR INJ 1 MG VIAL SQ PRN (13:01)
[2022-08-06] MEDS ORDERED: ALBUT/IPRATROP 3MG/0.5MG NEB 3 ML VIAL ONE (18:36)
[2022-08-06] MEDS: ALBUT/IPRATROP 3MG/0.5MG NEB 3 ML VIAL NEB PRN (18:45)
[2022-08-06] MEDS ORDERED: Heparin IV Adult Wt-Based Standard *NO* Bolus Protocol IV SCH (19:00)
[2022-08-06] MEDS: dexAMETHasone 6 MG in SYRINGE 0 ML IV SCH (20:16)
[2022-08-06] MEDS: guaiFENesin 600 MG TABCR PO SCH (20:16)
[2022-08-06] MEDS: LANTUS PER UNIT CHARGE SQ SCH (20:44)
[2022-08-06] MEDS: INSULIN ASPART PER UNIT SC SCH (20:44)
[2022-08-06 20:46] LABS: Base Excess ABG 15.5 mEq/L (-9-1.8); HCO3 ABG 44 mmol/L (19-24); Oxygen Saturation ABG 97.1 % (90-95); PCO2 ABG 69 mmHg (35-46); PO2 ABG 74 mmHg (80-95); pH ABG 7.41 (7.35-7.45)
[2022-08-06 20:49] LABS: Allen Test Pos (Pos)
[2022-08-06 20:57] LABS: Albumin Level 3.6 gm/dl (3.4-5.0); BUN Creatinine Ratio 36.6 (10-20); Bilirubin,Total 0.8 mg/dl (0.2-1.0); C Reactive Protein 1.94 mg/dl (0-0.5); Calcium 9.4 mg/dl (8.5-10.1); Creatinine Clr Calc Pharmacy 101.2 ml/min; Est GFR (African American) 108.1 ml/min; Est GFR (Non-African American) 93.2 ml/min; Globulin 3.7 gm/dl (2.5-4.0); Potassium 4.1 mmol/L (3.5-5.1); Total Protein 7.3 gm/dl (6.0-8.3)
[2022-08-06 21:07] LABS: Basophils # (auto) 0.01 K/uL (0-0.2); Basophils % (auto) 0.1 %; Hematocrit (blood only) 38.1 % (34.1-44.9); Hemoglobin 11.9 g/dl (12.0-16.0); Immature Granulocytes # (auto) 0.06 K/uL (0.00-0.02); Immature Granulocytes % (auto) 0.7 %; Lymphocytes # (auto) 1.47 K/uL (1.2-3.4); Lymphocytes % (auto) 17.9 %; Mean Corpuscular Hemoglobin 27.6 pg (25.0-34.0); Mean Corpuscular Hgb Conc 31.2 g/dL (32.0-36.0); Mean Corpuscular Volume 88.4 fL (80.0-100.0); Mean Platelet Volume 12.6 fL (9.4-12.3); Monocytes # (auto) 0.23 K/uL (0.24-0.82); Monocytes % (auto) 2.8 %; Neutrophils # (auto) 6.43 K/uL (1.4-6.5); Neutrophils % (auto) 78.5 %; Platelet Count 201 K/uL (130-400); RDW Coefficient of Variation 17.1 % (11.5-14.5); RDW Standard Deviation 55.5 fL (36.4-46.3); Red Blood Count 4.31 M/uL (3.93-5.22)
[2022-08-06 21:21] LABS: Troponin I High Sensitivity 821.3 pg/ml (0-14)
--- NOTE | 2022-08-06 21:52 | Communication Note ---
Date of Service: August 06, 2022 Patient requesting 0.5mg Klonopin in AM, 0.5mg Klonopin in afternoon, and 1mg HS. Per chart review, she has 0.5mg BID prn and 1mg HS scheduled. Given patient's large O2 requirement (on bipap), multifactorial, will stay w/ 0.5mg BID prn for anxiety, for now, and hold off on 1mg HS. lactate 2.3. trop 800s. follow labs. on heparin drip already for nstemi 5AM: messaged by nursing about CO2 on metabolic panel 40->43. Per chart review, likely some element of chronic CO2 retention. Recommend checking poc abg during dayshift, discussing w/ respiratory therapy and seeing if bipap settings could be optimized.
[2022-08-06 21:53] LABS: Partial Thromboplastin Ratio 0.9; Partial Thromboplastin Time 25.6 Seconds (21.0-31.0); Prothrombin Time 11.1 Seconds (9.0-12.0)
[2022-08-06] MEDS: clonazePAM 0.5 MG TAB PO PRN (22:12)
[2022-08-06] MEDS ORDERED: HEPARIN SODIUM/DEXTROSE 25,000 UNITS/500 ML BAG IV SCH (22:15)
[2022-08-06] MEDS: BUMETANIDE 2 MG in SYRINGE 0 ML IV SCH (22:15)
[2022-08-06] MEDS: ACETAMINOPHEN 325 MG TAB PO PRN (22:22)
--- NOTE | 2022-08-06 23:43 | XRay Report ---
XR chest 1V portable CLINICAL HISTORY: AHRF, ?CHF/pulm edema TECHNIQUE: Single frontal radiograph of the chest was obtained. Comparison: Comparison is made to chest radiograph 02/15/2021 FINDINGS: No lines and tubes are seen. Cardiomegaly is noted. Prominence and cephalization of the vasculature i s seen. No evidence of pleural effusion or pneumothorax. IMPRESSION: Cardiomegaly and mild pulmonary edema. This is somewhat worsened from prior exam. ACT 112: Negative or not required by law. Electronically signed by: Gregor Nino M.D. 08/06/2022 11:41 PM
[2022-08-07] MEDS: ACETAMINOPHEN 325 MG TAB PO PRN ×3 (02:18→20:15)
[2022-08-07 04:14] LABS: Basophils # (auto) 0.01 K/uL (0-0.2); Basophils % (auto) 0.1 %; Hematocrit (blood only) 37.1 % (34.1-44.9); Hemoglobin 11.6 g/dl (12.0-16.0); Immature Granulocytes # (auto) 0.04 K/uL (0.00-0.02); Immature Granulocytes % (auto) 0.5 %; Lymphocytes # (auto) 1.76 K/uL (1.2-3.4); Lymphocytes % (auto) 21.3 %; Mean Corpuscular Hemoglobin 27.5 pg (25.0-34.0); Mean Corpuscular Hgb Conc 31.3 g/dL (32.0-36.0); Mean Corpuscular Volume 87.9 fL (80.0-100.0); Mean Platelet Volume 10.6 fL (9.4-12.3); Monocytes # (auto) 0.28 K/uL (0.24-0.82); Monocytes % (auto) 3.4 %; Neutrophils # (auto) 6.18 K/uL (1.4-6.5); Neutrophils % (auto) 74.7 %; Platelet Count 217 K/uL (130-400); RDW Coefficient of Variation 16.4 % (11.5-14.5); Red Blood Count 4.22 M/uL (3.93-5.22); White Blood Count 8.27 K/ul (4.8-10.8)
[2022-08-07 04:15] LABS: Base Excess VBG 19.8 mEq/L; HCO3 VBG 48 mmol/L; PCO2 VBG 71 mmHg (38-50); PO2 VBG 53 mmHg; pH VBG 7.44 (7.36-7.41)
[2022-08-07 04:30] LABS: Partial Thromboplastin Ratio 1.4; Partial Thromboplastin Time 39.4 Seconds (21.0-31.0)
[2022-08-07 04:49] LABS: Albumin Level 3.5 gm/dl (3.4-5.0); BUN Creatinine Ratio 48.3 (10-20); Bilirubin,Total 0.9 mg/dl (0.2-1.0); C Reactive Protein 1.58 mg/dl (0-0.5); Calcium 9.2 mg/dl (8.5-10.1); Creatinine Clr Calc Pharmacy 123.9 ml/min; Est GFR (African American) 116.9 ml/min; Est GFR (Non-African American) 100.9 ml/min; Globulin 3.6 gm/dl (2.5-4.0); Potassium 3.7 mmol/L (3.5-5.1); Total Protein 7.1 gm/dl (6.0-8.3); Troponin I High Sensitivity 437.4 pg/ml (0-14)
[2022-08-07] MEDS: LEVOTHYROXINE SODIUM 125 MCG TABLET PO SCH (05:48)
[2022-08-07 07:29] LABS: Estimated Average Glucose 166 mg/dl; Hemoglobin A1C 7.4 % (4.5-5.6)
--- NOTE | 2022-08-07 07:46 | Electrocardiogram Report ---
Test Reason : Blood Pressure : / mmHG Vent. Rate : 064 BPM Atrial Rate : 064 BPM P-R Int : 166 ms QRS Dur : 076 ms QT Int : 444 ms P-R-T Axes : 066 045 107 degrees QTc Int : 458 ms Normal sinus rhythm Low voltage QRS T wave abnormality, consider lateral ischemia Abnormal ECG When compared with ECG of 17-FEB-2021 00:13, T wave inversion now evident in Lateral leads Confirmed by Nomi Gutiérrez ([id number]) on 08/07/2022 7:46:42 AM Referred By: Sergei Rosen Confirmed By:Nomi Gutiérrez
[2022-08-07] MEDS: ALBUT/IPRATROP 3MG/0.5MG NEB 3 ML VIAL NEB PRN ×4 (08:11→22:20)
[2022-08-07] MEDS: INSULIN ASPART PER UNIT SC SCH ×4 (08:11→21:34)
[2022-08-07 08:18] LABS: HCO3 VBG 48 mmol/L; Oxygen Saturation VBG 73.7 %; PCO2 VBG 78 mmHg (38-50); PO2 VBG 43 mmHg
[2022-08-07] MEDS: LANTUS PER UNIT CHARGE SQ SCH ×2 (08:30→21:34)
[2022-08-07] MEDS ORDERED: metOLazone 5 MG TABLET PO SCH (09:00)
[2022-08-07] MEDS: PANTOprazole 40 MG TAB PO SCH (09:30)
[2022-08-07] MEDS: GABAPENTIN 300 MG CAP PO SCH ×3 (09:30→20:09)
[2022-08-07] MEDS: METOPROLOL SUCC 50MG EXT REL TAB PO SCH (09:30)
[2022-08-07] MEDS: PARoxetine HCL 20 MG TAB PO SCH (09:31)
[2022-08-07] MEDS: busPIRone 15 MG TAB PO SCH ×3 (09:31→20:10)
[2022-08-07] MEDS: ARIPiprazole 15 MG TAB PO SCH (09:31)
[2022-08-07] MEDS: dexAMETHasone 6 MG in SYRINGE 0 ML IV SCH (09:31)
[2022-08-07] MEDS: guaiFENesin 600 MG TABCR PO SCH ×2 (09:31→20:09)
[2022-08-07] MEDS: BUMETANIDE 2 MG in SYRINGE 0 ML IV SCH (09:32)
--- NOTE | 2022-08-07 10:40 | XCELERA ---
[id number]
[2022-08-07 10:47] LABS: Partial Thromboplastin Ratio 1.3; Partial Thromboplastin Time 35.9 Seconds (21.0-31.0)
[2022-08-07 10:54] LABS: Influenza A virus by PCR Negative (Neg); Influenza B virus by PCR Negative (Neg); SARS CoV2 RNA(COVID-19)Cepheid NEGATIVE (Negative)
[2022-08-07 11:03] LABS: RSV by PCR Positive (Neg)
[2022-08-07] MEDS ORDERED: HEPARIN SOD (PORCINE) 1000 UNIT/ML IV ONE (11:10)
--- NOTE | 2022-08-07 11:24 | Hospitalist Progress Note ---
Date of Service August 07, 2022 Assessment & Plan (1) Acute and chronic respiratory failure: Plan: Acute on chronic hypoxic respiratory failure, multifactorial 2/2 RSV, COPD, OHS. - Covid-19 negative on 2 occasions here. Patient back to nearly her home 2L O2. Uses AVAPS at night. -> Switch steroid to prednisone in AM - CTA chest pending to r/o PE. (2) COVID-19: Plan: COVID PNA thought, but now with 2 negative tests in our hospital. - No needs (3) NSTEMI (non-ST elevated myocardial infarction): Plan: Likely demand ischemia vs small NSTEMI. Troponin elevation at [place] from 15 --> [address] changes including T wave inversions or ST segment changes, with no clinical chest pain, and echo with EF 55% and no regional wall motion abnormalities. Heparinized for NSTEMI. - Troponins here at 800 and downtrending. - Will stop heparin gtt if CTA chest is negative for PE. - Limited echo pending (4) Chronic obstructive pulmonary disease: Plan: Mixed obstructive restrictive lung disease. History of morbid obesity, BOBBI, OHS, suspected underlying bronchial asthma, COPD. Review of PFTs actually show restrictive disease with a normal ratio. Continue Trelegy/formulary equivalent, nebs every 4 hours as needed, pulmonary toilet BiPAP nightly and as needed PFT: FEV1 moderately reduced, ratio normal, significant air trapping (5) Anxiety: Plan: Mood disorder. Continue aripiprazole 30 mg daily Buspirone 15 mg 3 times daily Paroxetine 10 mg daily Suspect patient has some element of tar dive symptoms, this is been worked up as an outpatient and she has been moved to a second generation antipsychotic. 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 3 times daily, lispro - 131.54kg --> weight based: Lantus 22u BID, CF 20, Ratio 6. - BSG goal 110-140, glucose checks ac/hs - +steroids as noted above - glycemic consult for steroids/crit illness/hyperglycemia (7) Hypertension: Plan: BP today is 120/85. Prazosin, metoprolol as noted (8) Acid reflux: Plan: GERD Continue PPI daily - H2 PRN (9) Hyperlipemia: Plan: Hyperlipidemia, metabolic syndrome, morbid obesity with BMI greater than 60% Continue atorvastatin 20 mg daily (10) Hypothyroidism: Plan: TSH was 0.4 this admission. Continue Synthroid 125 mcg daily Recheck in 4 weeks with PCP (11) Morbid obesity with BMI of 60.0-69.9, adult: (12) Obesity hypoventilation syndrome: Admission and Anticipated Discharge Date Admission Date: August 06, 2022 Subjective Doing well today. Nearly back to her baseline O2. Feeling much better than when she came in. Physical Exam Constitutional: WD/WN, vitals as above Eyes: EOM intact bilaterally; no conjunctival abnormality ENMT: external ear and nose normal, oropharynx normal Neck: trachea midline, no thyromegaly normal visual inspection Respiratory: no respiratory distress Auscultation: + wheezes (Bilateral) Cardiovascular: RRR, no murmur, no edema Gastrointestinal (Abdomen): Inspection/Auscultation: abdomen normal to inspection; abdomen not distended Musculoskeletal: no cyanosis or clubbing, extremities motor strength 5/5 Skin: no rashes, warm and dry Neurologic: moves all extremities and awake Psychiatric: Orientation: alert, oriented to person and cooperative Results & Data Results & Data ([facility]) Vital Signs (Past 12 Hours) Vital Signs Temp Pulse Pulse Resp BP Pulse Ox O2 Del Method 08/07/22 08:00 63 08/07/22 08:00 Nasal Cannula, High Flow Nasal Cannula 08/07/22 08:11 75 18 92 Nasal Cannula 08/07/22 08:00 69 13 95 08/07/22 07:26 59 L 9 L 91 08/07/22 07:26 121/85 08/07/22 07:25 158/96 H 08/07/22 07:25 56 L 10 L 94 08/07/22 07:00 65 10 L 91 08/07/22 08:00 36.7 C 08/07/22 06:00 72 18 144/77 H 94 BiPAP 08/07/22 05:00 55 L 14 94 BiPAP 08/07/22 04:00 37 C 52 L 13 151/69 H 94 BiPAP 08/07/22 03:45 54 L 20 94 08/07/22 03:00 63 12 94 BiPAP 08/07/22 02:00 57 L 13 134/71 93 BiPAP 08/07/22 01:00 62 17 95 BiPAP 08/07/22 00:00 36.8 C 58 L 12 127/70 93 BiPAP 08/06/22 23:19 59 L 23 92 O2 Flow Rate FiO2 08/07/22 08:00 08/07/22 08:00 3 08/07/22 08:11 2 08/07/22 08:00 08/07/22 07:26 08/07/22 07:26 08/07/22 07:25 08/07/22 07:25 08/07/22 07:00 08/07/22 08:00 08/07/22 06:00 30 08/07/22 05:00 30 08/07/22 04:00 30 08/07/22 03:45 30 08/07/22 03:00 30 08/07/22 02:00 30 08/07/22 01:00 30 08/07/22 00:00 30 08/06/22 23:19 30 PG Care Time/CCT Total # of Minutes Spent Total Time Spent with Patient: Total time spent is greater than 50% in coordination of care (as documented) at patient's floor/unit and/or counseling patient: Coding Level of Care Code 08970 Subseq Hosp Care Lvl 3 Diagnoses Acute and chronic respiratory failure J96.20 COVID-19 U07.1 NSTEMI (non-ST elevated myocardial infarction) I21.4 Chronic obstructive pulmonary disease J44.9 COPD type: unspecified COPD Anxiety F41.9 Diabetes type 2, uncontrolled E11.65 Glycemic state: with hyperglycemia Hypertension I10 Hypertension type: essential hypertension Acid reflux K21.9 Esophagitis presence: without esophagitis Hyperlipemia E78.5 Hypothyroidism E03.9 Hypothyroidism type: acquired Morbid obesity with BMI of 60.0-69.9, adult E66.01; Z68.44 Obesity hypoventilation syndrome E66.2 (1) Hypothyroidism Hypothyroidism type: acquired Qualified Code(s): E03.9 - Hypothyroidism, unspecified (2) Diabetes type 2, uncontrolled Glycemic state: with hyperglycemia Qualified Code(s): E11.65 - Type 2 diabetes mellitus with hyperglycemia (3) Chronic obstructive pulmonary disease COPD type: unspecified COPD Qualified Code(s): J44.9 - Chronic obstructive pulmonary disease, unspecified (4) Acid reflux Esophagitis presence: without esophagitis Qualified Code(s): K21.9 - Gastro- esophageal reflux disease without esophagitis (5) Hypertension Hypertension type: essential hypertension Qualified Code(s): I10 - Essential (primary) hypertension
[2022-08-07] MEDS ORDERED: HEPARIN IV BOLUS 3,000 UNITS in SYRINGE 0 ML IV ONE (11:30)
[2022-08-07] MEDS ORDERED: OPTIRAY 320 500ml IV ONE (12:05)
--- NOTE | 2022-08-07 13:11 | CT Scan Report ---
CHEST CTA for PULMONARY ARTERIES CT DOSE: 944.70 mGy.cm HISTORY: Shortness of breath. TECHNIQUE: Multiaxial CT images of the chest were performed following the intravenous administration of contrast to evaluate the pulmonary arteries. Maximal intensity projection images were also obtaine d. A dose lowering technique was utilized adhering to the principles of ALARA. COMPARISON STUDY: Chest CTA 02/12/2021. FINDINGS: The visualized liver, spleen, and adrenal glands are unremarkable. Normal esophagus. The th yroid gland enhances normally. The heart remains mildly enlarged. The a few prominent mediastinal lym ph nodes are similar to the prior study. No hilar lymphadenopathy. No pleural or pericardial effusion s. No evidence for an aortic dissection or aneurysm. No filling defects within the pulmonary arteries to suggest a pulmonary embolus. Degenerative changes again noted within the shoulders. No acute frac tures identified within the chest. No pneumothorax. There are few partially opacified bilateral lower lobe bronchi. Focal areas consolidation within the bilateral lower lobes are noted. There are are al so patchy groundglass and nodular airspace opacities within the bilateral upper lobes. These findings likely represent a multifocal pneumonia. This could be due to prior aspiration. IMPRESSION: 1. No evidence for a pulmonary embolus. 2. Bilateral airspace opacities as described above likely representing a multifocal pneumonia. This c ould be due to prior aspiration. 3. Stable cardiomegaly. ACT 112: Negative or not required by law. Electronically signed by: Riley Fong M.D. 08/07/2022 1:08 PM
[2022-08-07] MEDS: AMPICILLIN/SULBACTAM SOD 3,000 MG in 0.9 % SODIUM CHLORIDE 100 ML IV SCH ×2 (16:40→21:56)
[2022-08-07] MEDS: predniSONE 20 MG TAB PO SCH (20:09)
[2022-08-07] MEDS: PRAZOSIN HCL 1 MG CAP PO SCH (20:10)
[2022-08-07] MEDS: clonazePAM 0.5 MG TAB PO PRN (20:15)
[2022-08-08] MEDS: AMPICILLIN/SULBACTAM SOD 3,000 MG in 0.9 % SODIUM CHLORIDE 100 ML IV SCH ×4 (05:05→22:33)
[2022-08-08] MEDS: LEVOTHYROXINE SODIUM 125 MCG TABLET PO SCH (05:05)
[2022-08-08 07:19] LABS: Hemoglobin 12.4 g/dl (12.0-16.0); Mean Corpuscular Hemoglobin 27.7 pg (25.0-34.0); Mean Corpuscular Hgb Conc 32.6 g/dL (32.0-36.0); Mean Corpuscular Volume 84.8 fL (80.0-100.0); Mean Platelet Volume 11.2 fL (9.4-12.3); Platelet Count 248 K/uL (130-400); RDW Coefficient of Variation 16.1 % (11.5-14.5); RDW Standard Deviation 50.1 fL (36.4-46.3); Red Blood Count 4.48 M/uL (3.93-5.22); White Blood Count 9.62 K/ul (4.8-10.8)
[2022-08-08 08:04] LABS: BUN Creatinine Ratio 59.6 (10-20); Calcium 9.6 mg/dl (8.5-10.1); Creatinine Clr Calc Pharmacy 126.4 ml/min; Est GFR (African American) 117.6 ml/min; Est GFR (Non-African American) 101.5 ml/min; Magnesium 1.9 mg/dl (1.7-2.4); Potassium 3.6 mmol/L (3.5-5.1)
[2022-08-08] MEDS: busPIRone 15 MG TAB PO SCH ×3 (08:04→22:41)
[2022-08-08] MEDS: METOPROLOL SUCC 50MG EXT REL TAB PO SCH (08:04)
[2022-08-08] MEDS: guaiFENesin 600 MG TABCR PO SCH ×2 (08:05→22:43)
[2022-08-08] MEDS: predniSONE 20 MG TAB PO SCH (08:05)
[2022-08-08] MEDS: BUMETANIDE 1 MG TAB PO SCH (08:05)
[2022-08-08] MEDS: GABAPENTIN 300 MG CAP PO SCH ×4 (08:06→22:42)
[2022-08-08] MEDS: ARIPiprazole 15 MG TAB PO SCH (08:06)
[2022-08-08] MEDS: PANTOprazole 40 MG TAB PO SCH (08:07)
[2022-08-08] MEDS: PARoxetine HCL 20 MG TAB PO SCH (08:07)
[2022-08-08] MEDS: INSULIN ASPART PER UNIT SC SCH ×4 (09:41→22:15)
[2022-08-08] MEDS: LANTUS PER UNIT CHARGE SQ SCH ×2 (09:42→22:15)
[2022-08-08] MEDS: ALBUT/IPRATROP 3MG/0.5MG NEB 3 ML VIAL NEB PRN ×3 (11:25→23:02)
--- NOTE | 2022-08-08 12:31 | Hospitalist Progress Note ---
Date of Service August 08, 2022 Assessment & Plan (1) Acute and chronic respiratory failure: Plan: Acute on chronic hypoxic respiratory failure, multifactorial 2/2 RSV, COPD, OHS. CT chest also showed some concern for aspiration pneumonia. - Covid-19 negative on 2 occasions here. Patient back to her home 2L O2. Uses AVAPS at night. -> Switched steroid to prednisone in AM - Continue Unasyn (started on 08/07). SAP TECHNICAL DEVELOPER evaluation given CT findings and that she reports food getting stuck with some choking. If she does well with SAP TECHNICAL DEVELOPER, wonder if she could have aspirated overnight with AVAPS on? (2) COVID-19: Plan: COVID PNA thought, but now with 2 negative tests in our hospital. 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 Staff have reached out, but may have to wait until Tuesday. (3) NSTEMI (non-ST elevated myocardial infarction): Plan: Likely demand ischemia vs small NSTEMI. Troponin elevation at [facility] from 15 --> [address] changes including T wave inversions or ST segment changes, with no clinical chest pain, and echo with EF 55% and no regional wall motion abnormalities. Heparinized for NSTEMI. - Troponins here at 800 and downtrending. - Limited echo on 08/07 showed EF 65-70%, moderate LVH, elevated RVSP. - Heparin gtt stopped on 08/07. (4) Chronic diastolic (congestive) heart failure: Plan: Patient appears euvolemic at this time. - Continue Bumex 2 mg PO daily. This is lower than home dosing, but likely using less salt. - Daily standing weights (5) Chronic obstructive pulmonary disease: Plan: Mixed obstructive restrictive lung disease. History of morbid obesity, BOBBI, OHS, suspected underlying bronchial asthma, COPD. Review of PFTs actually show restrictive disease with a normal ratio. Continue Trelegy/formulary equivalent, nebs every 4 hours as needed, pulmonary toilet BiPAP nightly and as needed PFT: FEV1 moderately reduced, ratio normal, significant air trapping (6) Anxiety: Plan: Mood disorder. Continue aripiprazole 30 mg daily Buspirone 15 mg 3 times daily Paroxetine 10 mg daily Suspect patient has some element of tardive symptoms, this is been worked up as an outpatient and she has been moved to a second generation antipsychotic. Symptoms are mild, no acute change in management at this time. 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 3 times daily, lispro - 131.54kg --> weight based: Lantus 22u BID, CF 20, Ratio 6. - BSG goal 110-140, glucose checks ac/hs - +steroids as noted above - Glycemic consult for steroids/crit illness/hyperglycemia (8) Hypertension: Plan: BP today is 120/85. Prazosin, metoprolol as noted (9) Acid reflux: Plan: GERD Continue PPI daily - H2 PRN (10) Hyperlipemia: Plan: Hyperlipidemia, metabolic syndrome, morbid obesity with BMI greater than 60% Continue atorvastatin 20 mg daily (11) Hypothyroidism: Plan: TSH was 0.4 this admission. Continue Synthroid 125 mcg daily Recheck in 4 weeks with PCP (12) Morbid obesity with BMI of 60.0-69.9, adult: (13) Obesity hypoventilation syndrome: Admission and Anticipated Discharge Date Admission Date: August 06, 2022 Subjective Doing well today. No cough. No chest pain. Back to her baseline O2. Feeling much better than when she came in. Physical Exam Constitutional: WD/WN, vitals as above + obese Eyes: EOM intact bilaterally; no conjunctival abnormality ENMT: external ear and nose normal, oropharynx normal Neck: trachea midline, no thyromegaly normal visual inspection Respiratory: no respiratory distress Auscultation: + wheezes (Bilateral) Cardiovascular: RRR, no murmur, no edema Gastrointestinal (Abdomen): Inspection/Auscultation: abdomen normal to inspection; abdomen not distended Musculoskeletal: no cyanosis or clubbing, extremities motor strength 5/5 Skin: no rashes, warm and dry Neurologic: moves all extremities and awake Psychiatric: Orientation: alert, oriented to person and cooperative Results & Data Results & Data ([facility]) Vital Signs (Past 12 Hours) Vital Signs Temp Pulse Pulse Resp BP Pulse Ox O2 Del Method 08/08/22 11:26 68 20 92 Nasal Cannula 08/08/22 10:59 Nasal Cannula 08/08/22 10:32 49 L 08/08/22 09:52 36.7 C 66 16 121/88 92 Nasal Cannula 08/08/22 08:03 36.6 C 16 139/76 08/08/22 04:12 36.5 C 63 20 141/80 H 95 BiPAP 08/08/22 02:41 56 L 21 97 O2 Flow Rate FiO2 08/08/22 11:26 2 08/08/22 10:59 2 08/08/22 10:32 08/08/22 09:52 2 08/08/22 08:03 08/08/22 04:12 08/08/22 02:41 30 PG Care Time/CCT Total # of Minutes Spent Total Time Spent with Patient: Total time spent is greater than 50% in coordination of care (as documented) at patient's floor/unit and/or counseling patient: Coding Level of Care Code 63392 Subseq Hosp Care Lvl 3 Diagnoses Acute and chronic respiratory failure J96.20 COVID-19 U07.1 NSTEMI (non-ST elevated myocardial infarction) I21.4 Chronic diastolic (congestive) heart failure I50.32 Chronic obstructive pulmonary disease J44.9 COPD type: unspecified COPD Anxiety F41.9 Diabetes type 2, uncontrolled E11.65 Glycemic state: with hyperglycemia Hypertension I10 Hypertension type: essential hypertension Acid reflux K21.9 Esophagitis presence: without esophagitis Hyperlipemia E78.5 Hypothyroidism E03.9 Hypothyroidism type: acquired Morbid obesity with BMI of 60.0-69.9, adult E66.01; Z68.44 Obesity hypoventilation syndrome E66.2 (1) Chronic obstructive pulmonary disease COPD type: unspecified COPD Qualified Code(s): J44.9 - Chronic obstructive pulmonary disease, unspecified (2) Diabetes type 2, uncontrolled Glycemic state: with hyperglycemia Qualified Code(s): E11.65 - Type 2 diabetes mellitus with hyperglycemia (3) Hypertension Hypertension type: essential hypertension Qualified Code(s): I10 - Essential (primary) hypertension (4) Acid reflux Esophagitis presence: without esophagitis Qualified Code(s): K21.9 - Gastro- esophageal reflux disease without esophagitis (5) Hypothyroidism Hypothyroidism type: acquired Qualified Code(s): E03.9 - Hypothyroidism, unspecified
[2022-08-08] MEDS: ACETAMINOPHEN 325 MG TAB PO PRN ×2 (14:18→22:51)
[2022-08-08] MEDS: clonazePAM 0.5 MG TAB PO PRN (22:35)
[2022-08-08] MEDS: PRAZOSIN HCL 1 MG CAP PO SCH (22:42)
[2022-08-09] MEDS: AMPICILLIN/SULBACTAM SOD 3,000 MG in 0.9 % SODIUM CHLORIDE 100 ML IV SCH ×4 (05:29→23:47)
[2022-08-09] MEDS: LEVOTHYROXINE SODIUM 125 MCG TABLET PO SCH (05:30)
[2022-08-09] MEDS: ALBUT/IPRATROP 3MG/0.5MG NEB 3 ML VIAL NEB SCH ×4 (07:16→19:41)
[2022-08-09] MEDS: ACETAMINOPHEN 325 MG TAB PO PRN ×2 (07:21→16:10)
[2022-08-09] MEDS: PANTOprazole 40 MG TAB PO SCH (08:08)
[2022-08-09] MEDS: PARoxetine HCL 20 MG TAB PO SCH (08:08)
[2022-08-09] MEDS: predniSONE 20 MG TAB PO SCH (08:08)
[2022-08-09] MEDS: busPIRone 15 MG TAB PO SCH ×3 (08:08→20:21)
[2022-08-09] MEDS: guaiFENesin 600 MG TABCR PO SCH ×2 (08:08→20:21)
[2022-08-09] MEDS: BUMETANIDE 1 MG TAB PO SCH (08:08)
[2022-08-09] MEDS: ARIPiprazole 15 MG TAB PO SCH (08:08)
[2022-08-09] MEDS: METOPROLOL SUCC 50MG EXT REL TAB PO SCH (08:09)
[2022-08-09 08:30] LABS: Hematocrit (blood only) 41.4 % (34.1-44.9); Hemoglobin 12.9 g/dl (12.0-16.0); Mean Corpuscular Hgb Conc 31.2 g/dL (32.0-36.0); Mean Corpuscular Volume 86.6 fL (80.0-100.0); Mean Platelet Volume 10.9 fL (9.4-12.3); Platelet Count 253 K/uL (130-400); RDW Coefficient of Variation 15.9 % (11.5-14.5); RDW Standard Deviation 50.7 fL (36.4-46.3); Red Blood Count 4.78 M/uL (3.93-5.22); White Blood Count 11.27 K/ul (4.8-10.8)
[2022-08-09 09:19] LABS: BUN Creatinine Ratio 49.3 (10-20); Blood Urea Nitrogen 37 mg/dl (6-23); Calcium 9.7 mg/dl (8.5-10.1); Carbon Dioxide > 45 mmol/L (21-32); Chloride 87 mmol/L (98-107); Est GFR (African American) 101.1 ml/min; Est GFR (Non-African American) 87.2 ml/min; Glucose 92 mg/dl (70-99(Fasting)); Potassium 3.2 mmol/L (3.5-5.1); Sodium 139 mmol/L (136-145)
[2022-08-09] MEDS: INSULIN ASPART PER UNIT SC SCH ×4 (09:46→20:20)
[2022-08-09] MEDS: ATORVASTATIN 20 MG TAB PO SCH (09:46)
[2022-08-09] MEDS: GABAPENTIN 300 MG CAP PO SCH ×3 (09:47→20:20)
[2022-08-09] MEDS: LANTUS PER UNIT CHARGE SQ SCH ×2 (09:47→20:20)
--- NOTE | 2022-08-09 09:56 | Hospitalist Progress Note ---
Date of Service August 09, 2022 Assessment & Plan (1) Acute and chronic respiratory failure: Plan: Acute on chronic hypoxic respiratory failure, multifactorial 2/2 RSV, COPD, [place], ? aspiration pneumonia. - COVID-19 negative on 2 occasions here, isolation precautions removed. - RSV positive. - Patient back to her home 2L O2. Uses AVAPS at night. - Continue daily prednisone x5 days. - Continue Unasyn (started on 08/07), to transition to Augmentin for discharge with end date of 08/13. TOWER HAND evaluation without overt signs of aspiration. Not impossible that she could have had an aspiration event at night while having her AVAPS on. (2) COVID-19: Plan: - Initially thought to have COVID PNA, however has had negative testing x2 at hospital. COVID precautions removed. (3) NSTEMI (non-ST elevated myocardial infarction): Plan: - Troponin elevation at [facility] from 15 --> [address] changes including T wave inversions or ST segment changes, with no clinical chest pain, and echo with EF 55% and no regional wall motion abnormalities. Troponin downtrended at [facility]. - Initially given Heparin gtt for NSTEMI -> stopped on 08/07. - Limited Echo on 08/07 showed EF 65-70%, moderate LVH, elevated RVSP. - Likely demand ischemia in setting of acute hypoxic illness. (4) Chronic diastolic (congestive) heart failure: Plan: - Patient appears euvolemic at this time. - Continue Bumex 2 mg PO daily. This is lower than home dosing, but likely using less salt. - Daily standing weights. (5) Chronic obstructive pulmonary disease: Plan: - Mixed obstructive/restrictive lung disease. History of morbid obesity, BOBBI, OHS, suspected underlying bronchial asthma, COPD. - PFT: FEV1 moderately reduced, ratio normal, significant air trapping. - Continue Trelegy/formulary equivalent, nebs every 4 hours as needed, pulmonary toilet. - BiPAP nightly and as needed. (6) Anxiety: Plan: Continue aripiprazole 30 mg daily. Buspirone 15 mg 3 times daily. Paroxetine 10 mg daily. clonazepam prn. 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 3 times daily, lispro. - Glycemic consult for steroids/critical illness/hyperglycemia. (8) Hypertension: Plan: - BP normotensive, continue prazosin and metoprolol. (9) Acid reflux: Plan: Continue PPI daily. - H2 PRN. (10) Hyperlipemia: Plan: - History of metabolic syndrome, morbid obesity with BMI of 55. Continue atorvastatin 20 mg daily. (11) Hypothyroidism: Plan: - TSH was 0.4 this admission. Continue Synthroid 125 mcg daily. Recheck in 4 weeks with PCP. (12) Morbid obesity with BMI of 60.0-69.9, adult: Plan: see above (13) Obesity hypoventilation syndrome: Plan: see above Plan - FULL CODE - DM2, low sodium diet - Ultimate plan for discharge home with home services; has caregivers and also has support when needed - Med/Surg Admission and Anticipated Discharge Date Admission Date: August 06, 2022 Subjective Patient with continued improvement in functional / respiratory status. However, still very wheezy and feeling overall "run down". Endorses some cough. No chest pain, abdominal pain, nausea, vomiting, diarrhea. Review of Systems Review of Systems: All systems reviewed & are unremarkable except as noted in HPI & below Physical Exam Constitutional: well developed; no acute distress Eyes: PERRL, conjunctivae normal, anicteric sclerae ENMT: external ear and nose normal, oropharynx normal Respiratory: normal respiratory effort saturating ywell on 2NLC audible wheezes, noted to be diffuse and bilateral on auscultation Cardiovascular: RRR, no murmur, no edema Gastrointestinal (Abdomen): normal bowel sounds, soft, nontender, no hepatosplenomegaly Skin: no rashes, warm and dry Neurologic: moves all extremities and awake; no focal motor deficits Psychiatric: A+Ox3, euthymic affect Results & Data Results & Data ([facility]) Vital Signs (Past 12 Hours) Vital Signs Temp Pulse Pulse Resp BP Pulse Ox O2 Del Method 08/09/22 07:24 36.6 C 66 18 141/86 H 99 Nasal Cannula 08/09/22 07:16 58 L 18 96 Nasal Cannula 08/09/22 00:01 Nasal Cannula 08/08/22 23:02 54 L 21 98 08/08/22 23:02 64 21 96 BiPAP O2 Flow Rate FiO2 08/09/22 07:24 2 08/09/22 07:16 2 08/09/22 00:01 08/08/22 23:02 30 08/08/22 23:02 PG Care Time/CCT Total # of Minutes Spent Total Time Spent with Patient: Total time spent is greater than 50% in coordination of care (as documented) at patient's floor/unit and/or counseling patient: Coding Level of Care Code 54069 Subseq Hosp Care Lvl 3 Diagnoses Acute and chronic respiratory failure J96.20 COVID-19 U07.1 NSTEMI (non-ST elevated myocardial infarction) I21.4 Chronic diastolic (congestive) heart failure I50.32 Chronic obstructive pulmonary disease J44.9 COPD type: unspecified COPD Anxiety F41.9 Diabetes type 2, uncontrolled E11.65 Glycemic state: with hyperglycemia Hypertension I10 Hypertension type: essential hypertension Acid reflux K21.9 Esophagitis presence: without esophagitis Hyperlipemia E78.5 Hypothyroidism E03.9 Hypothyroidism type: acquired Morbid obesity with BMI of 60.0-69.9, adult E66.01; Z68.44 Obesity hypoventilation syndrome E66.2 (1) Chronic obstructive pulmonary disease COPD type: unspecified COPD Qualified Code(s): J44.9 - Chronic obstructive pulmonary disease, unspecified (2) Diabetes type 2, uncontrolled Glycemic state: with hyperglycemia Qualified Code(s): E11.65 - Type 2 diabetes mellitus with hyperglycemia (3) Hypertension Hypertension type: essential hypertension Qualified Code(s): I10 - Essential (primary) hypertension (4) Acid reflux Esophagitis presence: without esophagitis Qualified Code(s): K21.9 - Gastro- esophageal reflux disease without esophagitis (5) Hypothyroidism Hypothyroidism type: acquired Qualified Code(s): E03.9 - Hypothyroidism, unspecified
[2022-08-09] MEDS: POTASSIUM CHLORIDE CRTAB 20 MEQ TABCR PO SCH (13:28)
[2022-08-09] MEDS: PRAZOSIN HCL 1 MG CAP PO SCH (20:22)
[2022-08-09] MEDS: clonazePAM 0.5 MG TAB PO PRN (20:26)
[2022-08-10] MEDS: ACETAMINOPHEN 325 MG TAB PO PRN ×3 (01:30→15:00)
[2022-08-10] MEDS: ALBUT/IPRATROP 3MG/0.5MG NEB 3 ML VIAL NEB PRN (03:13)
[2022-08-10] MEDS: AMPICILLIN/SULBACTAM SOD 3,000 MG in 0.9 % SODIUM CHLORIDE 100 ML IV SCH ×2 (05:30→10:21)
[2022-08-10] MEDS: LEVOTHYROXINE SODIUM 125 MCG TABLET PO SCH (05:31)
[2022-08-10] MEDS: ALBUT/IPRATROP 3MG/0.5MG NEB 3 ML VIAL NEB SCH ×3 (06:59→15:12)
[2022-08-10] MEDS: ARIPiprazole 15 MG TAB PO SCH (08:21)
[2022-08-10] MEDS: ATORVASTATIN 20 MG TAB PO SCH (08:22)
[2022-08-10] MEDS: BUMETANIDE 1 MG TAB PO SCH (08:22)
[2022-08-10] MEDS: busPIRone 15 MG TAB PO SCH ×2 (08:23→15:00)
[2022-08-10] MEDS: guaiFENesin 600 MG TABCR PO SCH (08:23)
[2022-08-10] MEDS: PARoxetine HCL 20 MG TAB PO SCH (08:24)
[2022-08-10] MEDS: PANTOprazole 40 MG TAB PO SCH (08:24)
[2022-08-10] MEDS: METOPROLOL SUCC 50MG EXT REL TAB PO SCH (08:24)
[2022-08-10] MEDS: predniSONE 20 MG TAB PO SCH (08:25)
[2022-08-10] MEDS: GABAPENTIN 300 MG CAP PO SCH ×2 (08:26→14:58)
--- NOTE | 2022-08-10 08:27 | Discharge Summary ---
Discharge Summary Date of Service August 10, 2022 Admission HPI Per Admitting Provider Marianne Slater is a 57-year-old female with a past medical history of chronic respiratory failure 2/2 COPD and obesity hypoventilation syndrome, CHF with preserved ejection fraction/diastolic dysfunction, complex sleep apnea, hypertension, hyperlipidemia, fatty liver disease, anxiety who is recommended to transfer to PCU from [facility]. Patient was admitted to [facility] 39 hours prior to transfer for respiratory distress and was found to have COVID. Per report from Dr. Davis patient called EMS for shortness of breath and was subsequently admitted with respiratory distress and improved on BiPAP, but had desaturations to 80 with an increase in PO2 to 78 while off BiPAP. She was found to be COVID-positive on 08/04 with symptoms of cough and shortness of breath for approximately [address] scan showed lymphadenopathy and bilateral diffuse infiltrates with concern for potential consolidative infiltrate in the left lung. She was covered with vancomycin/cefepime for superimposed pneumonia, treated with steroids, and admitted to the hospital. On admission patient had a hs-troponin of 15 which doug to 3280, per their report patient has had no EKG changes including T wave inversions or ST segment changes, has clinically been without any chest pain, an echocardiogram performed at [place] showed an EF of 55% with no wall motion abnormalities. She was treated as an NSTEMI with heparinization with greatest clinical suspicion for COVID myocarditis versus demand ischemia. Case was discussed with pulmonology/ICU. On repeat phone contact patient was reportedly improved and tolerating periods off BiPAP without desaturation. Per signout intubation was not recommended or suspected to be needed around time of transfer, patient pH 7.3 with downtrending PCO2 on BiPAP. Given this patient was excepted for PCU status, with low threshold to transfer to ICU if decompensating. Of note patient was intubated for COPD exacerbation 10/2021 at [facility] and required subsequent trach, she was decannulated 12/13/2021. Patient is seen in 1 of 5 on arrival to ICU. She is breathing on BiPAP, does not feel short of breath, and is not in acute distress. She reports that about 7 days ago she developed a cough and some shortness of breath more than normal, usually uses 2 to 3 L of oxygen during the day and AVAPS at night. She reports she had cough, shortness of breath and clear sputum production. This worsened over the next several days until the point where she felt she could not catch her breath and called EMS. She reports she remembers gasping for breath and then passing out, and then waking up in the hospital. She has never had a seizure. She does have tremulous activity and has been worked up for Parkinson 's, has some tremor which she thinks may be due to to her aripiprazole. She has not had any chest pain in the last week, and denies chest pain at assessment. No chest pressure or palpitations. Denies fever/chills/sweats at time of assessment. Think she was a little warm earlier in the week. She reports she uses Trelegy at home and albuterol as needed, has been using her albuterol twice a day which produces some improvement in breathing but did not help enough to prevent her from going into the hospital. She does not know what medications were given to her in [place], and is not a good historian of her medications but knows that she does take BuSpar, aripiprazole, insulin medicine, Trelegy inhaler, thyroid tablet, metoprolol. She does not have any abdominal pain, nausea/vomiting/diarrhea currently. She is allergic to sulfa antibiotics and Wellbutrin, has had a rash/hives allergy. Denies history of heart attack/stents. Medical History: Reviewed Medications: Reviewed Surgical History: Reviewed Allergies: Reviewed Social History: Former smoker Code Status: Full code. Surrogate decision maker to be her daughter Admission Exam Per Admitting Provider General: A&Ox3. NAD. Cooperative. Morbidly obese HEENT: Atraumatic, normocephalic. Vision/hearing grossly intact Pulm: Breath sounds distant, scattered expiratory wheezes are present. Symmetrical chest rise. On BiPAP, no acute respiratory distress Cardiac: RRR, -mrg. Radial pulses intact and symmetrical. Abdominal: Obese, nontender, nondistended, soft. BS present. Extremities: Morbidly obese, sensation soft touch intact in hands and feet. Patient with a resting tremor in hands and feet bilaterally which quiet on action/glass vial bending conveyor feeder strength. No clonus. Principal Dx & Hospital Course #1 = Principal Diagnosis (1) Acute and chronic respiratory failure: Acute on chronic hypoxic respiratory failure, multifactorial 2/2 RSV, COPD, OHS, ? aspiration pneumonia: - COVID-19 negative on 2 occasions here, isolation precautions removed. - RSV positive. - Patient back to her home 2L O2. Uses AVAPS at night. - Continue prednisone x5 days as taper. - Unasyn (started on 08/07) transitioned to Augmentin on discharge with end date of 08/13. [employer] evaluation without overt signs of aspiration. Not impossible that she could have had an aspiration event at night while having her AVAPS on. (2) COVID-19: - Initially thought to have COVID PNA, however has had negative testing x2 at hospital. (3) NSTEMI (non-ST elevated myocardial infarction): - Troponin elevation at [place] from 15 --> [address] changes including T wave inversions or ST segment changes, with no clinical chest pain, and echo with EF 55% and no regional wall motion abnormalities. Troponin downtrended at [facility]. - Initially given Heparin gtt for NSTEMI -> stopped on 08/07. - Limited Echo on 08/07 showed EF 65-70%, moderate LVH, elevated RVSP. - Likely demand ischemia in setting of acute hypoxic illness. - Follow up with PCP regarding continued BP control, BSG control. (4) Chronic diastolic (congestive) heart failure: - Patient appears euvolemic at this time. - Resume home Bumex with metolazone as needed for weight gain. - Follow up with Cardiology, has seen Malick Pedroza in the past. (5) Chronic obstructive pulmonary disease: - Mixed obstructive/restrictive lung disease. History of morbid obesity, BOBBI, OHS, suspected underlying bronchial asthma, COPD. - PFT: FEV1 moderately reduced, ratio normal, significant air trapping. - Continue home inhalers. Oxygen needs not changed; 2LNC while awake with AVAPS at night. (6) Anxiety: Continue aripiprazole 30 mg daily. Buspirone 15 mg 3 times daily. Paroxetine 10 mg daily. clonazepam prn. (7) Diabetes type 2, uncontrolled: - Resume home basal/bolus insulin. (8) Hypertension: - BP normotensive, continue prazosin and metoprolol. (9) Acid reflux: Continue PPI daily. (10) Hyperlipemia: Continue atorvastatin 20 mg daily. (11) Hypothyroidism: - TSH was 0.4 this admission. Continue Synthroid 125 mcg daily. Recheck in 4 weeks with PCP. (12) Morbid obesity with BMI of 60.0-69.9, adult: see above (13) Obesity hypoventilation syndrome: see above Discharge Exam Constitutional + morbidly obese; no acute distress Respiratory interval improvement in expiratory wheezing, present only in upper lobes and not a severe as exam yesterday Cardiovascular RRR, no murmur, no edema Gastrointestinal (Abdomen) normal bowel sounds, soft, nontender, no hepatosplenomegaly Psychiatric A+Ox3, euthymic affect Updated Medication List Medication Instructions Recorded Confirmed Type underpads (Bed Underpads) #40 ea 02/21/20 08/06/22 Rx miscellaneous medical supply #500 ea 03/24/20 08/06/22 Rx ondansetron HCl 4 mg tablet 4 mg PO Q6H PRN Nausea 02/10/21 07/29/22 History (Julio) blood sugar diagnostic ([facility] #500 ea 10/06/21 08/06/22 Rx Ultra Test strips) buspirone 15 mg tablet 15 mg PO TID #270 tabs 10/30/21 08/06/22 Rx cyclobenzaprine 10 mg tablet 10 mg PO BID PRN muscle spasm #60 10/30/21 08/06/22 Rx tabs budesonide 0.5 mg/2 mL suspension 0.25 mg inhalation BID #120 mL 11/17/21 08/06/22 Rx for nebulization ascorbic acid (vitamin C) 500 mg 500 mg PO BID #60 tabs 01/05/22 08/06/22 Rx tablet aripiprazole 30 mg tablet 30 mg PO DAILY 01/12/22 08/06/22 History atorvastatin 20 mg tablet 20 mg PO DAILY #90 tabs 01/12/22 08/06/22 Rx clonazepam 0.5 mg tablet (Klonopin) See Rx Instructions .Route .COMPLEX 01/12/22 08/06/22 History insulin glargine 100 unit/mL 15 unit (0.15 mL) subcut QPM #40 mL 01/12/22 08/06/22 Rx subcutaneous solution (Lantus U-100 Insulin) insulin syringes (disposable) 1 mL #500 ea 01/12/22 08/06/22 Rx lancets 33 gauge (OneTouch [place] #500 ea 01/12/22 08/06/22 Rx Lancets) paroxetine HCl 10 mg tablet 40 mg PO DAILY 01/12/22 08/06/22 History prazosin 1 mg capsule 3 mg PO QPM 01/12/22 08/06/22 History Bed Side Commode #1 ea 01/22/22 08/06/22 Rx Shower Chair #1 ea 01/22/22 08/06/22 Rx leg brace (Knee Support Brace) #1 ea 01/22/22 08/06/22 Rx nebulizer accessories #1 ea 01/22/22 08/06/22 Rx nebulizers #1 ea 01/22/22 08/06/22 Rx triamcinolone acetonide 0.025 % 1 applic topical DAILY PRN rash 01/22/22 08/06/22 Rx topical cream #80 grams ipratropium 0.5 mg-albuterol 3 mg 3 ml inhalation QID PRN Shortness 03/10/22 08/06/22 Rx (2.5 mg base)/3 mL nebulization Of Breath Or Wheezing #180 mL soln blood sugar diagnostic (OneTouch #100 ea 03/26/22 08/06/22 Rx Ultra Test strips) nystatin 100,000 unit/gram topical 1 applic topical TID PRN yeast 04/19/22 08/06/22 Rx powder infection #60 grams docusate sodium 100 mg tablet 100 mg PO BID constipation #60 tabs 04/27/22 08/06/22 Rx bariatric bath tub #1 ea 05/05/22 08/06/22 Rx metoprolol succinate 50 mg 50 mg PO DAILY #90 tabs 05/10/22 08/06/22 Rx tablet,extended release 24 hr stair lift #1 ea 05/11/22 08/06/22 Rx transfer bench #1 ea 05/11/22 08/06/22 Rx metolazone 5 mg tablet 5 mg PO DAILY #30 tabs 05/20/22 08/06/22 Rx insulin lispro 100 unit/mL See Rx Instructions subcut QID #10 05/25/22 08/06/22 Rx subcutaneous solution mL bumetanide 1 mg tablet 3 mg PO DAILY 06/08/22 08/06/22 History miscellaneous medical supply #1 ea 06/08/22 08/06/22 Rx gabapentin 300 mg capsule 300 mg PO TID #90 caps 06/29/22 08/06/22 Rx levothyroxine 125 mcg capsule 125 mcg PO DAILY #90 caps 06/29/22 08/06/22 Rx fluticasone fur. 100 mcg-umeclid 1 inh inhalation DAILY #60 ea 06/30/22 08/06/22 Rx 62.5 mcg-vilant 25 mcg inhalat.powder (Trelegy Ellipta) hydrocodone 5 mg-acetaminophen 325 1 tab PO Q8H PRN pain #30 tabs 07/08/22 08/06/22 Rx mg tablet nystatin 100,000 unit/gram topical 1 applic topical TID #30 grams 07/13/22 08/06/22 Rx ointment cholecalciferol (vitamin D3) 25 25 mcg PO DAILY #90 caps 07/29/22 08/06/22 Rx mcg (1,000 unit) capsule dulaglutide 0.75 mg/0.5 mL 0.75 mg (0.5 mL) subcut Q7D #2 mL 07/29/22 08/06/22 Rx subcutaneous pen injector (Trulicity) pantoprazole 40 mg tablet,delayed 40 mg PO DAILY #90 tabs 07/29/22 08/06/22 Rx release prednisone 20 mg tablet 40 mg PO DAILY #14 tabs 08/03/22 08/06/22 Rx amoxicillin 875 mg-potassium 1 tab PO BID 4 days #8 tabs 08/10/22 Rx clavulanate 125 mg tablet benzonatate 100 mg capsule 100 mg PO TID PRN cough #20 caps 08/10/22 Rx nystatin 100,000 unit/gram topical 1 applic topical DAILY #30 grams 08/10/22 Rx cream potassium chloride 20 mEq 40 meq PO QAM 30 days #60 tabs 08/10/22 Rx tablet,extended release(part/cryst) prednisone 5 mg tablets in a dose See Rx Instructions PO .COMPLEX 08/10/22 Rx pack #21 ea Hospital Stay Data Diagnostic Imagining Performed 08/07/22 08:06 CT angio chest PE protocol Routine Discharge Instructions Given to Patient (Per Discharging Provider) You were admitted to the hospital and evaluated for pneumonia, COPD exacerbation, and heart attack. You were given water pills, Lasix, in order to get fluid off of your lungs, and you were given antibiotics, steroids, and breathing treatments for COPD. You were found to have had a large heart strain due to your COPD and pneumonia, but without lasting damage to the way your heart pumps. You continued to improve and you were felt safe for discharge with the following medication changes: 1) You were given nystatin for irritation on your abdomen. 2) You were prescribed Augmentin, an antibiotic, to be taken twice daily starting this evening (08/10). Take one pill every 12 hours until complete. 3) You were given a steroid pack for your COPD. Please see the instructions on the prescription when you pick it up. 4) We recommend you increase your potassium dosing to 40 milliequivalents daily when you are taking both Bumex and metolazone. Metolazone should be taken only as needed per Cardiology. You can return to your home dose of Bumex. 5) Tessalon perles (lso called benzonatate) is a cough medication that was sent to [facility]. You can take one pill every 8 hours for cough. You should have follow up with your primary care doctor to review your medicatio ns and how you are feeling within 10 days of discharge. If you are not contacted by their office, please call. If you have worsening of your symptoms please contact your primary care provider, and seek urgent medical evaluation. Total Time Total Time Spent Total Time Spent (In Minutes): 30 minutes Coding Level of Care Code D/C DAY MANAGEMENT >30 MINS Diagnoses Acute and chronic respiratory failure J96.20 COVID-19 U07.1 NSTEMI (non-ST elevated myocardial infarction) I21.4 Chronic diastolic (congestive) heart failure I50.32 Chronic obstructive pulmonary disease J44.9 COPD type: unspecified COPD Anxiety F41.9 Diabetes type 2, uncontrolled E11.65 Glycemic state: with hyperglycemia Hypertension I10 Hypertension type: essential hypertension Acid reflux K21.9 Esophagitis presence: without esophagitis Hyperlipemia E78.5 Hypothyroidism E03.9 Hypothyroidism type: acquired Morbid obesity with BMI of 60.0-69.9, adult E66.01; Z68.44 Obesity hypoventilation syndrome E66.2
[2022-08-10] MEDS: INSULIN ASPART PER UNIT SC SCH ×2 (09:07→12:48)
[2022-08-10] MEDS: LANTUS PER UNIT CHARGE SQ SCH (09:07)
[2022-08-10] MEDS: POTASSIUM CHLORIDE CRTAB 20 MEQ TABCR PO SCH (09:08)
[2022-08-10 09:41] LABS: Hematocrit (blood only) 42.2 % (34.1-44.9); Hemoglobin 13.2 g/dl (12.0-16.0); Mean Corpuscular Hemoglobin 27.3 pg (25.0-34.0); Mean Corpuscular Hgb Conc 31.3 g/dL (32.0-36.0); Mean Corpuscular Volume 87.2 fL (80.0-100.0); Mean Platelet Volume 10.8 fL (9.4-12.3); Platelet Count 239 K/uL (130-400); RDW Coefficient of Variation 15.9 % (11.5-14.5); RDW Standard Deviation 50.9 fL (36.4-46.3); Red Blood Count 4.84 M/uL (3.93-5.22); White Blood Count 11.12 K/ul (4.8-10.8)
[2022-08-10 10:48] LABS: BUN Creatinine Ratio 40.3 (10-20); Calcium 9.6 mg/dl (8.5-10.1); Creatinine Clr Calc Pharmacy 93.5 ml/min; Est GFR (Non-African American) 84.5 ml/min; Potassium 3.4 mmol/L (3.5-5.1)
== END 2022-08-10 16:20 | disposition home health service (06) | DRG 189 ==
LOC: 1E 13:00 → SUATTDRO 13:00 → 2E 08-07 19:15 → 3W 08-08 18:01

== ENCOUNTER 2022-08-24 11:13 | Inpatient (IN) ==
--- NOTE | 2022-08-24 11:27 | Emergency Department Note ---
Impression & Plan CHF (congestive heart failure), Shortness of breath, Hypoxia, Elevated troponin, Cellulitis ED Provider Note NAME: CORDELIA REYES AGE: 57 SEX: F : 1965 ARRIVES VIA: Ambulance INFORMANT: Patient ED PROVIDER(S): Lee Fernandez DO CHIEF COMPLAINT: cough and shortness of breath HPI: Patient is a 57-year-old female with a past medical history of morbid obes ity, NSTEMI, metabolic syndrome, arthritis, anxiety, hyperlipidemia, hypertension, PTSD that presents to the ER for shortness of breath. Patient was admitted and discharged more on the 15 of this month. She to follow-up appointment with her PCP. Shortness of breath is getting worse. It improves when she sits up and at rest. Lying flat and up and moving around makes it significantly worse. She denies any chest pain. No belly pain. No nausea, vomiting or diarrhea. No dysuria, urgency or frequency. She admits to swelling of her legs. She had a 20 pound weight gain since being discharged. She denies missing any of her diuretics. She denies blood thinners. She saw her PCP and was referred in as patient was found to be hypoxic at 86% on her chronic 2 L. ROS: See above HPI for pertinent positives & negatives. A total of 10 systems reviewed and were otherwise negative. PAST MEDICAL HISTORY:See Below PAST SURGICAL HISTORY:See Below FAMILY HISTORY:See Below SOCIAL HISTORY:See Below HOME MEDICATIONS:See Below ALLERGIES:See Below VITALS:See Below PHYSICAL EXAMINATION: GENERAL: Sitting up in bed, alert, morbidly obese, disheveled, on 2 L nasal cannula EYE EXAM: normal conjunctiva. PERRL and EOM's grossly intact. OROPHARYNX: mucous membranes are moist NECK: supple, no nuchal rigidity, no adenopathy, non-tender LUNGS: Clear to auscultation. Normal chest wall mechanics HEART: no murmurs, S1 normal and S2 normal ABDOMEN: abdomen soft, non-tender, normo-active bowel sounds, no masses, no rebound or guarding. UPPER EXTREMITIES: upper extremities are grossly normal. LOWER EXTREMITIES: Pitting edema to bilateral lower extremities with erythema over the left anterior gagnon NEURO EXAM: Normal sensorium, cranial nerves II-XII grossly intact, normal speech, no gross weakness of arms, no gross weakness of legs. MEDICAL DECISION MAKING: Patient is a 57-year-old female sent in by her PCP for 20 pound weight gain and worsening shortness of breath. IV was established blood work was obtained. Labs show no significant leukocytosis or anemia. BMP with CO2 elevated at 42 consistent with previous. VBG with a CO2 of 67. Trope 15. BNP was 42. Pro- Arnol less than 0.05. Influenza COVID and RSV were negative. Chest x-ray with bilateral airspace opacities questionable atelectasis. There is also questionable right pleural effusion. Patient was given a dose of Lasix. She was updated at bedside. She was placed on some Nitropaste due to the elevated blood pressures of nearly 200. She was discussed with the hospitalist and admitted for further work-up. Patient was also given oral potassium. She was given a dose of Rocephin due to left lower extremity redness and erythema. Triage Nursing notes reviewed. Limited review of prior medical records performed Vital Signs: reviewed and remarkable for hypoxia Differential diagnosis: Differential diagnoses includes but is not limited to pneumonia, bronchitis, COPD/Asthma exacerbation, pneumothorax, pulmonary embolism, congestive heart ting lure, acute coronary syndrome ER treatment provided: See below Diagnostics interpreted by me: ECG: Sinus tachycardia rate of 100 Normal axis Poor baseline QTC 448 First-degree AV block Cardiac Monitoring: An order was placed for continuous cardiac monitoring. The monitor shows a rate of 92 with sinus rhythm. Laboratory studies: As stated above and show below. Imaging studies: Portable AP upright 1 view the chest as described above in MDM Consultation(s): Discussed with the hospitalist for further evaluation Procedures: none Critical Care: None Past Med/Surg History Medical History Acid reflux Acne Acute on chronic respiratory failure with hypoxia and hypercapnia Allergic rhinitis Anemia Anxiety Arthritis Chronic diastolic (congestive) heart failure Chronic obstructive pulmonary disease Chronic respiratory failure Depression Diabetes type 2, uncontrolled Essential tremor Fatty liver H/O renal calculi H/O: iron deficiency anemia H/O: pneumonia Hearing difficulty Hepatic encephalopathy Hyperlipemia Hypertension Hypothyroidism Knee osteoarthritis Lung cancer Mass of lung Obesity hypoventilation syndrome Personal history of COVID-19 PTSD (post-traumatic stress disorder) Severe obstructive sleep apnea Urinary incontinence Vitamin D deficiency Surgical History H/O lithotripsy H/O prior ablation treatment H/O tympanostomy History of adenoidectomy History of tonsillectomy Previous section Status post tracheostomy (11/25/21) Family History Father Alcohol abuse Cardiac disorder Diabetes Gallbladder disease Hypertension Depression Mother Anxiety Depression Diabetes Hypertension Stroke Sister Breast cancer Depression Heart disease, congenital Rectal cancer Grandmother (Maternal) Lung disease Grandfather (Maternal) Heart disease Colorectal cancer Prostate cancer Denies family history of Ovarian cancer Myocardial infarction Social History Smoking Status: Former smoker Age Started Using Tobacco: 16; Age Quit Using Tobacco: 29; packs per day: 1; Second Hand Exposure: No; Hx Alcohol Use: No Hx Substance Use: No Preferred Language: Kazakh Communication Ability: Effective Visual Impairment: Limited Hearing Ability: Hard of Hearing 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 caffeine: Yes (Tea x 2 cups a day.) during the past year weight has: decreased > 10 lbs Dental Care, Regularly: No Physical Activity Frequency: Does not Exercise Physical Activity Frequency Comment: Limited by physical condition Seatbelt Use: always Sunscreen Use: Yes Assistive Devices: None and Wheelchair Allergies Allergies Allergy/AdvReac Type Severity Reaction Status Date / Time bupropion Allergy Unknown Hives Verified 08/24/22 09:19 Sulfa (Sulfonamide Allergy Unknown Hives Verified 08/24/22 09:19 Antibiotics) Home Meds Home Medications Medication Instructions Recorded Confirmed ondansetron HCl 4 mg tablet 4 mg PO Q6H PRN Nausea 02/10/21 08/24/22 (Zofran) aripiprazole 30 mg tablet 30 mg PO DAILY 01/12/22 08/24/22 clonazepam 0.5 mg tablet (Klonopin) See Rx Instructions .Route .COMPLEX 01/12/22 08/24/22 paroxetine HCl 10 mg tablet 40 mg PO DAILY 01/12/22 08/24/22 prazosin 1 mg capsule 3 mg PO QPM 01/12/22 08/24/22 bumetanide 1 mg tablet 3 mg PO DAILY 06/08/22 08/24/22 Previous Rx's Medication Instructions Recorded underpads (Bed Underpads) #40 ea 02/21/20 miscellaneous medical supply #500 ea 03/24/20 blood sugar diagnostic (OneTouch #500 ea 10/06/21 Ultra Test strips) buspirone 15 mg tablet 15 mg PO TID #270 tabs 10/30/21 cyclobenzaprine 10 mg tablet 10 mg PO BID PRN muscle spasm #60 10/30/21 tabs budesonide 0.5 mg/2 mL suspension 0.25 mg inhalation BID #120 mL 11/17/21 for nebulization ascorbic acid (vitamin C) 500 mg 500 mg PO BID #60 tabs 01/05/22 tablet atorvastatin 20 mg tablet 20 mg PO DAILY #90 tabs 01/12/22 insulin glargine 100 unit/mL 15 unit (0.15 mL) subcut QPM #40 mL 01/12/22 subcutaneous solution (Lantus U-100 Insulin) insulin syringes (disposable) 1 mL #500 ea 01/12/22 lancets 33 gauge (OneTouch Delica #500 ea 01/12/22 Lancets) Bed Side Commode #1 ea 01/22/22 Shower Chair #1 ea 01/22/22 leg brace (Knee Support Brace) #1 ea 01/22/22 nebulizer accessories #1 ea 01/22/22 nebulizers #1 ea 01/22/22 ipratropium 0.5 mg-albuterol 3 mg 3 ml inhalation QID PRN Shortness 03/10/22 (2.5 mg base)/3 mL nebulization Of Breath Or Wheezing #180 mL soln blood sugar diagnostic (OneTouch #100 ea 03/26/22 Ultra Test strips) nystatin 100,000 unit/gram topical 1 applic topical TID PRN yeast 04/19/22 powder infection #60 grams docusate sodium 100 mg tablet 100 mg PO BID constipation #60 tabs 04/27/22 bariatric bath tub #1 ea 05/05/22 metoprolol succinate 50 mg 50 mg PO DAILY #90 tabs 05/10/22 tablet,extended release 24 hr stair lift #1 ea 05/11/22 transfer bench #1 ea 05/11/22 metolazone 5 mg tablet 5 mg PO DAILY #30 tabs 05/20/22 insulin lispro 100 unit/mL See Rx Instructions subcut QID #10 05/25/22 subcutaneous solution mL miscellaneous medical supply #1 ea 06/08/22 gabapentin 300 mg capsule 300 mg PO TID #90 caps 06/29/22 levothyroxine 125 mcg capsule 125 mcg PO DAILY #90 caps 06/29/22 fluticasone fur. 100 mcg-umeclid 1 inh inhalation DAILY #60 ea 06/30/22 62.5 mcg-vilant 25 mcg inhalat.powder (Trelegy Ellipta) nystatin 100,000 unit/gram topical 1 applic topical TID #30 grams 07/13/22 ointment cholecalciferol (vitamin D3) 25 25 mcg PO DAILY #90 caps 07/29/22 mcg (1,000 unit) capsule dulaglutide 0.75 mg/0.5 mL 0.75 mg (0.5 mL) subcut Q7D #2 mL 07/29/22 subcutaneous pen injector (Trulicity) pantoprazole 40 mg tablet,delayed 40 mg PO DAILY #90 tabs 07/29/22 release prednisone 20 mg tablet 40 mg PO DAILY #14 tabs 08/03/22 benzonatate 100 mg capsule 100 mg PO TID PRN cough #20 caps 08/10/22 nystatin 100,000 unit/gram topical 1 applic topical DAILY #30 grams 08/10/22 cream potassium chloride 20 mEq 40 meq PO QAM 30 days #60 tabs 08/10/22 tablet,extended release(part/cryst) hydrocodone 5 mg-acetaminophen 325 1 tab PO Q8H PRN pain #30 tabs 08/16/22 mg tablet triamcinolone acetonide 0.025 % 1 applic topical DAILY PRN rash 08/16/22 topical cream #80 grams diazepam 5 mg tablet 5 mg PO USEASDIRECTD #1 tab 08/23/22 Results & Data (ED) Vital Signs Vital Signs - 24 hr 08/24/22 11:15 08/24/22 11:15 08/24/22 11:15 Temperature 36.9 C Temperature Source Oral Pulse Rate 93 H Pulse Rate from SpO2 Sensor Respiratory Rate 20 Respiratory Effort / Characteristics Short of Breath Blood Pressure 197/90 H Blood Pressure Mean 125 Pulse Oximetry 98 98 Oxygen Delivery Method Room Air Oxymask Nasal Cannula Oxygen Flow Rate 2 2 Sepsis Recent Fever Within 48 Hours No Sepsis New/Unexplained Change in Mental Status N/A Sepsis Action Taken by Nursing No Action Required 08/24/22 11:27 08/24/22 11:30 08/24/22 12:00 Temperature Temperature Source Pulse Rate 97 H 95 H 101 H Pulse Rate from SpO2 Sensor 97 H 179 H 99 H Respiratory Rate 24 15 14 Respiratory Effort / Characteristics Blood Pressure Blood Pressure Mean Pulse Oximetry 100 97 99 Oxygen Delivery Method Oxygen Flow Rate Sepsis Recent Fever Within 48 Hours Sepsis New/Unexplained Change in Mental Status Sepsis Action Taken by Nursing 08/24/22 12:30 Temperature Temperature Source Pulse Rate 70 Pulse Rate from SpO2 Sensor 91 H Respiratory Rate 14 Respiratory Effort / Characteristics Blood Pressure Blood Pressure Mean Pulse Oximetry 100 Oxygen Delivery Method Oxygen Flow Rate Sepsis Recent Fever Within 48 Hours Sepsis New/Unexplained Change in Mental Status Sepsis Action Taken by Nursing Laboratory Data Result diagrams: 08/24/22 11:25 08/24/22 11:25 Lab Results 08/24/22 08/24/22 08/24/22 Range/Units 11:25 11:25 11:25 WBC 10.25 (4.8-10.8) K/ul RBC 4.17 (3.93-5.22) M/uL Hgb 11.7 L (12.0-16.0) g/dl Hct 36.9 (34.1-44.9) % MCV 88.5 (80.0-100.0) fL MCH 28.1 (25.0-34.0) pg MCHC 31.7 L (32.0-36.0) g/dL RDW Std Deviation 55.6 H (36.4-46.3) fL RDW Coeff of Carol 17.0 H (11.5-14.5) % Plt Count 191 (130-400) K/uL MPV 12.0 (9.4-12.3) fL Immature Gran % (Auto) 0.4 % Neut % (Auto) 65.0 % Lymph % (Auto) 26.9 % Antelope % (Auto) 5.9 % Eos % (Auto) 1.6 % Baso % (Auto) 0.2 % Neut # (Auto) 6.67 H (1.4-6.5) K/uL Lymph # (Auto) 2.76 (1.2-3.4) K/uL Antelope # (Auto) 0.60 (0.24-0.82) K/uL Eos # (Auto) 0.16 (0-0.50) K/uL Baso # (Auto) 0.02 (0-0.2) K/uL Immature Gran # (Auto) 0.04 H (0.00-0.02) K/uL Platelet Estimate Normal (Normal) Polychromasia 1+ Stomatocytes 1+ Sodium 141 (136-145) mmol/L Potassium 3.7 (3.5-5.1) mmol/L Chloride 94 L (98-107) mmol/L Carbon Dioxide 42 H* (21-32) mmol/L Anion Gap 5 (3-11) BUN 12 (6-23) mg/dl Creatinine 0.56 L (0.6-1.2) mg/dl Est Cr Clr Drug Dosing 136.7 ml/min Est GFR ( Amer) 118.3 ml/min Est GFR (Non-Af Amer) 102.1 ml/min BUN/Creatinine Ratio 21.4 H (10-20) Glucose 267 H (70-99(Fasting)) mg/dl Calcium 9.5 (8.5-10.1) mg/dl Total Bilirubin 0.9 (0.2-1.0) mg/dl AST 18 (13-39) U/L ALT 25 (7-52) U/L Alkaline Phosphatase 129 H (34-104) U/L Troponin I High Sens 16.8 H D (0-14) pg/ml B-Natriuretic Peptide (0-100) pg/ml Total Protein 7.5 (6.0-8.3) gm/dl Albumin 4.1 (3.4-5.0) gm/dl Globulin 3.4 (2.5-4.0) gm/dl Albumin/Globulin Ratio 1.2 (0.9-2) Lipase 28 (11-82) U/L Procalcitonin (0-0.5) ng/ml SARS-CoV-2 (PCR) NEGATIVE (Negative) Influenza Type A (PCR) Negative (Neg) Influenza Type B (PCR) Negative (Neg) RSV (RT-PCR) Negative (Neg) 11/29/22 11/29/22 Range/Units 11:25 11:25 WBC (4.8-10.8) K/ul RBC (3.93-5.22) M/uL Hgb (12.0-16.0) g/dl Hct (34.1-44.9) % MCV (80.0-100.0) fL MCH (25.0-34.0) pg MCHC (32.0-36.0) g/dL RDW Std Deviation (36.4-46.3) fL RDW Coeff of Carol (11.5-14.5) % Plt Count (130-400) K/uL MPV (9.4-12.3) fL Immature Gran % (Auto) % Neut % (Auto) % Lymph % (Auto) % Antelope % (Auto) % Eos % (Auto) % Baso % (Auto) % Neut # (Auto) (1.4-6.5) K/uL Lymph # (Auto) (1.2-3.4) K/uL Antelope # (Auto) (0.24-0.82) K/uL Eos # (Auto) (0-0.50) K/uL Baso # (Auto) (0-0.2) K/uL Immature Gran # (Auto) (0.00-0.02) K/uL Platelet Estimate (Normal) Polychromasia Stomatocytes Sodium (136-145) mmol/L Potassium (3.5-5.1) mmol/L Chloride (98-107) mmol/L Carbon Dioxide (21-32) mmol/L Anion Gap (3-11) BUN (6-23) mg/dl Creatinine (0.6-1.2) mg/dl Est Cr Clr Drug Dosing ml/min Est GFR ( Amer) ml/min Est GFR (Non-Af Amer) ml/min BUN/Creatinine Ratio (10-20) Glucose (70-99(Fasting)) mg/dl Calcium (8.5-10.1) mg/dl Total Bilirubin (0.2-1.0) mg/dl AST (13-39) U/L ALT (7-52) U/L Alkaline Phosphatase (34-104) U/L Troponin I High Sens (0-14) pg/ml B-Natriuretic Peptide 42 (0-100) pg/ml Total Protein (6.0-8.3) gm/dl Albumin (3.4-5.0) gm/dl Globulin (2.5-4.0) gm/dl Albumin/Globulin Ratio (0.9-2) Lipase (11-82) U/L Procalcitonin < 0.05 (0-0.5) ng/ml SARS-CoV-2 (PCR) (Negative) Influenza Type A (PCR) (Neg) Influenza Type B (PCR) (Neg) RSV (RT-PCR) (Neg) Administered Medications Heparin Sodium (Porcine) (Heparin Sod 5,000 Unit/0.5 Ml Vial) 5,000 units SQ Q8 COLE Stop: 09/23/22 13:59 Last Admin: 08/24/22 14:47 Dose: 5,000 units Documented By: GENE Nitroglycerin (Nitroglycerin 2% Ointment 30gm Tube) 2 inch EXT Q6H COLE Stop: 09/23/22 12:29 Last Admin: 08/24/22 13:13 Dose: Not Given Documented By: GENE Discontinued Medications Furosemide (Furosemide 40 Mg/4 Ml Vial) 40 mg IV NOW STA Stop: 08/24/22 12:21 Last Admin: 08/24/22 13:00 Dose: 40 mg Documented By: GENE Ceftriaxone Sodium (Rocephin) 2,000 mg in 70 mls @ 140 mls/hr IV NOW STA Stop: 08/24/22 12:06 Last Admin: 08/24/22 13:00 Dose: 140 mls/hr Documented By: GENE Potassium Chloride (Potassium Chloride Crtab 20 Meq Tabcr) 40 meq PO NOW STA Stop: 08/24/22 12:41 Last Admin: 08/24/22 13:00 Dose: 40 meq Documented By: GENE Imaging Data Radiologist's Impression: Chest X-Ray 08/24/22 11:21 SINGLE VIEW CHEST CLINICAL HISTORY: Atypical chest pain. Dyspnea. FINDINGS: An AP, portable, upright chest radiograph is compared to study dated 08/06/2022 and correlated with chest CT dated 08/07/2022. The examination is degraded by portable technique and large body habitus. The heart is enlarged noting atherosclerotic calcification of the thoracic. There is pulmonary vascular congestion. Dependent airspace opacities likely represent atelectasis. Question a small right pleural effusion. No pneumothorax is seen. The skeletal structures are osteopenic. The bony thorax is grossly intact. IMPRESSION: 1. Cardiomegaly with mild pulmonary vascular congestion. 2. Bibasilar airspace opacities likely represent atelectasis, right significantly greater than left. Clinical correlation will be required. 3. Question a right pleural effusion. ACT 112: Negative or not required by law. Electronically signed by: Nikunj Alan M.D. 08/24/2022 12:14 PM Discharge Plan Visit Data Chief Complaint: Shortness of Breath/Dyspnea Stated Complaint: SOB, LEG EDEMA ED Provider: Lee Fernandez Discharge Problem: CHF (congestive heart failure), Shortness of breath, Hypoxia, Elevated troponin, Cellulitis Patient Disposition: Admitted As Inpatient Discharge Instructions Interventions: ED Discharge Assessment Last Done: 08/24/22 14:56
[2022-08-24] MEDS ORDERED: cefTRIAXone SODIUM 2,000 MG/70 ML BAG IV STA (11:37)
[2022-08-24 12:08] LABS: Hematocrit (blood only) 36.9 % (34.1-44.9); Hemoglobin 11.7 g/dl (12.0-16.0); Mean Corpuscular Hemoglobin 28.1 pg (25.0-34.0); Mean Corpuscular Hgb Conc 31.7 g/dL (32.0-36.0); Mean Corpuscular Volume 88.5 fL (80.0-100.0); Platelet Count 191 K/uL (130-400); RDW Standard Deviation 55.6 fL (36.4-46.3); Red Blood Count 4.17 M/uL (3.93-5.22); White Blood Count 10.25 K/ul (4.8-10.8)
--- NOTE | 2022-08-24 12:16 | XRay Report ---
SINGLE VIEW CHEST CLINICAL HISTORY: Atypical chest pain. Dyspnea. FINDINGS: An AP, portable, upright chest radiograph is compared to study dated 08/06/2022 and correla kwame with chest CT dated 08/07/2022. The examination is degraded by portable technique and large body habitus. The heart is enlarged noting atherosclerotic calcification of the thoracic. There is pulmon micheal vascular congestion. Dependent airspace opacities likely represent atelectasis. Question a small right pleural effusion. No pneumothorax is seen. The skeletal structures are osteopenic. The bony tho rax is grossly intact. IMPRESSION: 1. Cardiomegaly with mild pulmonary vascular congestion. 2. Bibasilar airspace opacities likely represent atelectasis, right significantly greater than left. Clinical correlation will be required. 3. Question a right pleural effusion. ACT 112: Negative or not required by law. Electronically signed by: iNkunj Alan M.D. 08/24/2022 12:14 PM
[2022-08-24] MEDS ORDERED: FUROSEMIDE 40 MG/4 ML VIAL IV STA (12:20)
[2022-08-24 12:36] LABS: Albumin Globulin Ratio 1.2 (0.9-2); Albumin Level 4.1 gm/dl (3.4-5.0); BUN Creatinine Ratio 21.4 (10-20); Bilirubin,Total 0.9 mg/dl (0.2-1.0); Calcium 9.5 mg/dl (8.5-10.1); Creatinine Clr Calc Pharmacy 136.7 ml/min; Est GFR (African American) 118.3 ml/min; Est GFR (Non-African American) 102.1 ml/min; Globulin 3.4 gm/dl (2.5-4.0); Potassium 3.7 mmol/L (3.5-5.1); Total Protein 7.5 gm/dl (6.0-8.3); Troponin I High Sensitivity 16.8 pg/ml (0-14)
--- NOTE | 2022-08-24 12:37 | History & Physical Report ---
Date of Service August 24, 2022 Assessment & Plan (1) Acute and chronic respiratory failure: Plan: -Admit to PCU -Patient is currently afebrile, hemodynamically stable, and stable on her baseline 2-3L NC during the day -Initial hypoxia with ambulation and increased SOB likely due to CHF exacerbation as she is volume overloaded with pulmonary edema on CXR -Ordered Procal and BNP on admission which are in process -Was given 1 dose of ceftriaxone in the ED, will wait for procal to result, if elevated will cover for pneumonia -Patient was negative for covid, influenza, and RSV, will wait to treat for COPD exacerbation until her procal results -Was given 40 mg IV lasix in the ED, will continue with 80 mg IV BID for now and hold oral diuretics for now -Weight today is 135 Kg, was noted to be 123 Kg on 08/10, monitor intake/output and daily weight -Monitor on tele and pulse oximetry, prn breathing treatments, continue daytime O2 and HS AVAPS -2 g sodium restriction while admitted -AM CBC and CMP (2) Erythema of lower extremity: Plan: -LLE noted to be erythematous and warm compared to RLE -Will venous doppler of the LLE to monitor for DVT -If negative will treat as cellulitis (3) Elevated troponin: Plan: -Initial HS troponin of 16.8 -Patient is without chest pain, no new ECG changes -Will repeat troponin on admission to make sure it trends down (4) Mixed hyperlipidemia: Plan: -Continue statin (5) Hypertension: Plan: -Noted to be hypertensive with systolics in the low 200's on arrival to the ED -Was given IV lasix and was ordered 2 inches of nitro paste -Repeat BP on other arm was significantly improved, will hold nitro paste for now and see how she responds to the lasix -Continue metoprolol (6) Severe obstructive sleep apnea: Plan: -See acute on chronic respiratory failure (7) Chronic diastolic (congestive) heart failure: Plan: -Hold PO diuretics while on IV lasix -Will FU with BNP -Just had TTE on 08/07, will note repeat echo at this time (8) Diabetes type 2, uncontrolled: Plan: -Continue home HS lantus at 15 units -Correction factor of 30 and carb ratio of 11 -Monitor bsg ACHS, consistent carb diet (9) Hypothyroidism: Plan: -Continue levothyroxine (10) Vitamin D deficiency: Plan: -Continue Vitamin D (11) Depression: Plan: -Continue Paxil and Buspar (12) Anxiety: Plan: -Continue clonazepam -See depression (13) Acid reflux: Plan: -Continue pantoprazole Plan The patient was seen with and discussed with Dr. Rosen at the time of the admission History of Present Illness Chief Complaint: Weight gain and increased SOB Primary Care Provider: Barbara Deng DO Lopes is a 57 year old female with a PMH significant for chronic respiratory failure 2/2 COPD and obesity hypoventilation syndrome on baseline 2-3L NC during the day and AVAPS at night, CHF with preserved ejection fraction/diastolic dysfunction, complex sleep apnea, hypertension, hyperlipidemia, fatty liver disease, and anxiety who presented to the [facility] ED on 08/24/22 for weight gain and SOB. Per chart review, the patient was recently admitted to [facility] from 08/06/22- 08/10/22 after being transferred from [facility] due to respiratory distress thought to be from Covid 19 infection. She was found to be covid positive of 08/04/22 on admission to [facility] and was also found to have an NSTEMI. She was started on Vancomycin/Cefepime for possible bacterial pneumonia, started on oral steroids, and started on a heparin drip for her NSTEMI. She required Bipap during her admission at [place] and upon arrival to [facility]. Per the discharge summary, her acute on chronic respiratory failure was t hought to be due to RSV as she tested positive and tested negative for Covid twice here. She was treated with oral prednisone for COPD exacerbation, was started on Unasyn and eventually transitioned to Augmentin prior to discharge. She was evaluated by [employer] [employer] and was found to be without overt signs of aspiration but it could not be ruled out. She was initially continued on a heparin drip on arrival to [facility] for her NSTEMI, Echo on 08/07/22 showed a LVEF of 65-70%, moderate LVH, and elevated RVSP. Her elevated troponin was thought to be due to demand ischemia and it down trended while admitted, her heparin drip was stopped on 08/07. She was found to be euvolemic on arrival to [facility] and was continued on her home Bumex, prn metolazone was added on discharge for weight gain. In the ED today the patient was found to be afebrile, hypertensive at 197/90, and stable on her baseline 2L NC. Her weight today was noted at 135 kg, up from 123 kg on the day of discharge (08/10/22). Labs were remarkable for WBC WNL, stable Hgb at 11.7. and stable platelets, bicarb of 42, stable renal function/electrolytes, alk phos of 129, high sensitivity troponin of 16.8. Chest xray shows "1. Cardiomegaly with mild pulmonary vascular congestion. 2. Bibasilar airspace opacities likely represent atelectasis, right significantly greater than left. Clinical correlation will be required. 3. Question a right pleural effusion." Prior to admission the patient was given 2g IV Ceftriaxone, 40 mg IV Lasix, 40 meq of PO KCL, and was placed on 2 inches of 2% nitroglycerine. At the time of the exam the patient was resting in bed in no acute distress, currently stable on her 2L NC. She states that since discharge on 08/10 she has had progressive SOB, non-productive cough, and an approximately 20 lb weight gain. She denies having increased sodium intake and states that she did not eat a thanksgiving meal due to sleeping most of the day. She has been using her bumex daily and used the 5mg PO metolazone the past 48 hours due to her weight gain without improvement. She uses a cane to ambulate and states that she has felt much more SOB with only taking a few steps while on her baseline 2-3L NC during the day. At night during the past two night she has felt more SOB on her AVAPS and had more anxiety because of it. She confirmed that she completed her course of Augmentin as prescribed on discharge. She denies recent fevers/chills, chest pain, abd pain, nausea, vomiting, diarrhea, dysuria, hematuria, and recent falls. She went to her PCP this am for discharge follow-up and was found to be hypertensive with systolics in the low 200's and hypoxic in the mid 80's on her baseline O2; because of this she was recommended to come to the ED. I spoke to her regarding code status, she is a Full Code. Please refer to Dr. Rosen's attestation for any changes to the treatment plan. Allergies Allergy/AdvReac Type Severity Reaction Status Date / Time bupropion Allergy Unknown Hives Verified 08/24/22 09:19 Sulfa (Sulfonamide Allergy Unknown Hives Verified 08/24/22 09:19 Antibiotics) Home Medications Medication Instructions Recorded Confirmed Type underpads (Bed Underpads) #40 ea 02/21/20 08/24/22 Rx miscellaneous medical supply #500 ea 03/24/20 08/24/22 Rx ondansetron HCl 4 mg tablet 4 mg PO Q6H PRN Nausea 02/10/21 08/24/22 History (Zofran) [facility] 10/06/21 08/24/22 Rx Ultra Test strips) buspirone 15 mg tablet 15 mg PO TID #270 tabs 10/30/21 08/24/22 Rx cyclobenzaprine 10 mg tablet 10 mg PO BID PRN muscle spasm #60 10/30/21 08/24/22 Rx tabs budesonide 0.5 mg/2 mL suspension 0.25 mg inhalation BID #120 mL 11/17/21 08/24/22 Rx for nebulization ascorbic acid (vitamin C) 500 mg 500 mg PO BID #60 tabs 01/05/22 08/24/22 Rx tablet aripiprazole 30 mg tablet 30 mg PO DAILY 01/12/22 08/24/22 History atorvastatin 20 mg tablet 20 mg PO DAILY #90 tabs 01/12/22 08/24/22 Rx clonazepam 0.5 mg tablet (Klonopin) See Rx Instructions .Route .COMPLEX 01/12/22 08/24/22 History insulin glargine 100 unit/mL 15 unit (0.15 mL) subcut QPM #40 mL 01/12/22 08/24/22 Rx subcutaneous solution (Lantus U-100 Insulin) insulin syringes (disposable) 1 mL #500 ea 01/12/22 08/24/22 Rx lancets 33 gauge ([employer] [facility] #500 ea 01/12/22 08/24/22 Rx Lancets) paroxetine HCl 10 mg tablet 40 mg PO DAILY 01/12/22 08/24/22 History prazosin 1 mg capsule 3 mg PO QPM 01/12/22 08/24/22 History Bed Side Commode #1 ea 01/22/22 08/24/22 Rx Shower Chair #1 ea 01/22/22 08/24/22 Rx leg brace (Knee Support Brace) #1 ea 01/22/22 08/24/22 Rx nebulizer accessories #1 ea 01/22/22 08/24/22 Rx nebulizers #1 ea 01/22/22 08/24/22 Rx ipratropium 0.5 mg-albuterol 3 mg 3 ml inhalation QID PRN Shortness 03/10/22 08/24/22 Rx (2.5 mg base)/3 mL nebulization Of Breath Or Wheezing #180 mL soln blood sugar diagnostic (OneTouch #100 ea 03/26/22 08/24/22 Rx Ultra Test strips) nystatin 100,000 unit/gram topical 1 applic topical TID PRN yeast 04/19/22 08/24/22 Rx powder infection #60 grams docusate sodium 100 mg tablet 100 mg PO BID constipation #60 tabs 04/27/22 08/24/22 Rx bariatric bath tub #1 ea 05/05/22 08/24/22 Rx metoprolol succinate 50 mg 50 mg PO DAILY #90 tabs 05/10/22 08/24/22 Rx tablet,extended release 24 hr stair lift #1 ea 05/11/22 08/24/22 Rx transfer bench #1 ea 05/11/22 08/24/22 Rx metolazone 5 mg tablet 5 mg PO DAILY #30 tabs 05/20/22 08/24/22 Rx insulin lispro 100 unit/mL See Rx Instructions subcut QID #10 05/25/22 08/24/22 Rx subcutaneous solution mL bumetanide 1 mg tablet 3 mg PO DAILY 06/08/22 08/24/22 History miscellaneous medical supply #1 ea 06/08/22 08/24/22 Rx gabapentin 300 mg capsule 300 mg PO TID #90 caps 06/29/22 08/24/22 Rx levothyroxine 125 mcg capsule 125 mcg PO DAILY #90 caps 06/29/22 08/24/22 Rx fluticasone fur. 100 mcg-umeclid 1 inh inhalation DAILY #60 ea 06/30/22 08/24/22 Rx 62.5 mcg-vilant 25 mcg inhalat.powder (Trelegy Ellipta) nystatin 100,000 unit/gram topical 1 applic topical TID #30 grams 07/13/22 08/24/22 Rx ointment cholecalciferol (vitamin D3) 25 25 mcg PO DAILY #90 caps 07/29/22 08/24/22 Rx mcg (1,000 unit) capsule dulaglutide 0.75 mg/0.5 mL 0.75 mg (0.5 mL) subcut Q7D #2 mL 07/29/22 08/24/22 Rx subcutaneous pen injector (Trulicity) pantoprazole 40 mg tablet,delayed 40 mg PO DAILY #90 tabs 07/29/22 08/24/22 Rx release prednisone 20 mg tablet 40 mg PO DAILY #14 tabs 08/03/22 08/24/22 Rx benzonatate 100 mg capsule 100 mg PO TID PRN cough #20 caps 08/10/22 08/24/22 Rx nystatin 100,000 unit/gram topical 1 applic topical DAILY #30 grams 08/10/22 08/24/22 Rx cream potassium chloride 20 mEq 40 meq PO QAM 30 days #60 tabs 08/10/22 08/24/22 Rx tablet,extended release(part/cryst) hydrocodone 5 mg-acetaminophen 325 1 tab PO Q8H PRN pain #30 tabs 08/16/22 08/24/22 Rx mg tablet triamcinolone acetonide 0.025 % 1 applic topical DAILY PRN rash 08/16/22 08/24/22 Rx topical cream #80 grams diazepam 5 mg tablet 5 mg PO USEASDIRECTD #1 tab 08/23/22 08/24/22 Rx Past Med/Surg History Medical History Acid reflux Acne Acute on chronic respiratory failure with hypoxia and hypercapnia Allergic rhinitis Anemia Anxiety Arthritis Chronic diastolic (congestive) heart failure Chronic obstructive pulmonary disease Chronic respiratory failure Depression Diabetes type 2, uncontrolled Essential tremor Fatty liver H/O renal calculi H/O: iron deficiency anemia H/O: pneumonia Hearing difficulty Hepatic encephalopathy Hyperlipemia Hypertension Hypothyroidism Knee osteoarthritis Lung cancer Mass of lung Obesity hypoventilation syndrome Personal history of COVID-19 PTSD (post-traumatic stress disorder) Severe obstructive sleep apnea Urinary incontinence Vitamin D deficiency Surgical History H/O lithotripsy H/O prior ablation treatment H/O tympanostomy History of adenoidectomy History of tonsillectomy Previous section Status post tracheostomy (11/25/21) Family History Father Alcohol abuse Cardiac disorder Diabetes Gallbladder disease Hypertension Depression Mother Anxiety Depression Diabetes Hypertension Stroke Sister Breast cancer Depression Heart disease, congenital Rectal cancer Grandmother (Maternal) Lung disease Grandfather (Maternal) Heart disease Colorectal cancer Prostate cancer Denies family history of Ovarian cancer Myocardial infarction Social History Smoking Status: Former smoker Age Started Using Tobacco: 16; Age Quit Using Tobacco: 29; packs per day: 1; Second Hand Exposure: No; Hx Alcohol Use: No Hx Substance Use: No Preferred Language: Lao Communication Ability: Effective Visual Impairment: Limited Hearing Ability: Hard of Hearing 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 caffeine: Yes (Tea x 2 cups a day.) during the past year weight has: decreased > 10 lbs Dental Care, Regularly: No Physical Activity Frequency: Does not Exercise Physical Activity Frequency Comment: Limited by physical condition Seatbelt Use: always Sunscreen Use: Yes Assistive Devices: None and Wheelchair Review of Systems Review of Systems: Denies current fever, chills, headache, changes in vision, hearing, taste, and smell, chest pain, abdominal pain, nausea, vomiting, slade rrhea, hematemesis, melena, dysuria, hematuria, and recent falls. All systems have been reviewed and are otherwise negative. Physical Exam Physical Exam: Physical Exam: General: In no acute distress, stated age, morbidly obese, chronically ill- appearing HEENT: Normocephalic, atraumatic, no scleral icterus, pupils around round, symmetrical, and reactive to light, dry mucus membranes, +JVD, trachea midline, no thyromegaly Chest/Pulm: No respiratory distress, symmetrical chest expansion, distant breath sounds, decreased breath sounds in the BL lower lung garcia with R < L, expiratory wheezing noted in all other lung garcia Cardiac: Distant hear sounds, RRR, no murmurs noted Abdomen: Negative for ascites and bruising, normoactive bowel sounds, soft, non-tender to palpation throughout Musculoskeletal: Symmetrical and without signs of acute trauma, upper and lower extremities with full ROM, no atrophy, spasticity, or flaccidity Extremities: Radial, dorsalis pedis, and posterior tibial pulses are intact and symmetrical, 2+ pitting edema Skin: Patient with erythema and swelling of the LLE consistent with possible cellulitis, no erythema on the RLE Neuro: Alert and oriented to person, place, month, year, and president, no focal defects, CN II-XII tested and intact, baseline resting tremor noted Psych: No acute distress, calm and cooperative during the exam Results & Data Results & Data ([facility]) Vital Signs (Past 12 Hours) Vital Signs Temp Pulse Resp BP Pulse Ox O2 Del Method O2 Flow Rate 08/24/22 11:15 98 Nasal Cannula 2 08/24/22 11:15 Oxymask 2 08/24/22 11:15 36.9 C 93 H 20 197/90 H 98 Room Air Laboratory Results Abnormal lab results 08/24/22 08/24/22 Range/Units 11:25 11:25 Hgb 11.7 L (12.0-16.0) g/dl MCHC 31.7 L (32.0-36.0) g/dL RDW Std Deviation 55.6 H (36.4-46.3) fL RDW Coeff of Carol 17.0 H (11.5-14.5) % Neut # (Auto) 6.67 H (1.4-6.5) K/uL Immature Gran # (Auto) 0.04 H (0.00-0.02) K/uL Chloride 94 L (98-107) mmol/L Carbon Dioxide 42 H* (21-32) mmol/L Creatinine 0.56 L (0.6-1.2) mg/dl BUN/Creatinine Ratio 21.4 H (10-20) Glucose 267 H (70-99(Fasting)) mg/dl Alkaline Phosphatase 129 H (34-104) U/L Troponin I High Sens 16.8 H D (0-14) pg/ml Diagnostic Findings Chest X-Ray 08/24/22 11:21 SINGLE VIEW CHEST CLINICAL HISTORY: Atypical chest pain. Dyspnea. FINDINGS: An AP, portable, upright chest radiograph is compared to study dated 08/06/2022 and correlated with chest CT dated 08/07/2022. The examination is degraded by portable technique and large body habitus. The heart is enlarged noting atherosclerotic calcification of the thoracic. There is pulmonary vascular congestion. Dependent airspace opacities likely represent atelectasis. Question a small right pleural effusion. No pneumothorax is seen. The skeletal structures are osteopenic. The bony thorax is grossly intact. IMPRESSION: 1. Cardiomegaly with mild pulmonary vascular congestion. 2. Bibasilar airspace opacities likely represent atelectasis, right significantly greater than left. Clinical correlation will be required. 3. Question a right pleural effusion. ACT 112: Negative or not required by law. Electronically signed by: Nikunj Alan M.D. 08/24/2022 12:14 PM ECG Additional Comments: Normal sinus rhythm T wave abnormality, consider lateral ischemia Abnormal ECG When compared with ECG of 06-AUG-2022 20:56, Vent. rate has increased BY 36 BPM Code Status & VTE Plan Code Status Full code VTE Prophylaxis Plan VTE Prophylaxis will be ordered: Yes Supervising Physician Co-Signing Physician Notes Patient seen and examined, chart reviewed, case discussed with Antonio Pollard PA-C and I agree with the assessment and plan as above except as otherwise noted Labs and images reviewed Erika is a 57-year-old female with a past medical history of CHF, NSTEMI, Metabolic syndrome, BOBBI, PTSD, DM2, mood disorder who presented with acute on chronic shortness of breath and hypoxia within increase shortness of breath with exertion and slight O2 drop but maintaining on her normal 2 to 3 L of oxygen. Is with 10 kg of weight gain in the last 2 weeks. Denies dietary indiscretion at baseline. Denies chest pain, chest pressure at bedside. No shortness of breath at bedside, reports it is improved since receiving Lasix and is on oxygen. Lungs are diminished and with crackles in the bases, otherwise grossly clear no wheezes. Heart rate is regular. Agree with sodium restriction, Lasix, daily weights and management of suspected acute CHF exacerbation as above. Can use home AVAPS or facility PPV for OHS. Hemodynamically stable at assessment, agree with plan above. PG Care Time/CCT Total # of Minutes Spent Total Time Spent with Patient: Total time spent is greater than 50% in coordination of care (as documented) at patient's floor/unit and/or counseling patient: [place] [address] Initial Inpt Care Lvl 3 Patient Type Established Medical Decision Making High Complexity Diagnoses Acute and chronic respiratory failure J96.20 Erythema of lower extremity L53.9 Elevated troponin R77.8 Mixed hyperlipidemia E78.2 Hypertension I10 Hypertension type: essential hypertension Severe obstructive sleep apnea G47.33 Chronic diastolic (congestive) heart failure I50.32 Diabetes type 2, uncontrolled E11.65 Glycemic state: with hyperglycemia Hypothyroidism E03.9 Hypothyroidism type: acquired Vitamin D deficiency E55.9 Depression F32.9 Depression Type: unspecified Anxiety F41.9 Acid reflux K21.9 Esophagitis presence: without esophagitis (1) Depression Depression Type: unspecified Qualified Code(s): F32.9 - Major depressive disorder, single episode, unspecified (2) Hypothyroidism Hypothyroidism type: acquired Qualified Code(s): E03.9 - Hypothyroidism, unspecified (3) Diabetes type 2, uncontrolled Glycemic state: with hyperglycemia Qualified Code(s): E11.65 - Type 2 diabetes mellitus with hyperglycemia (4) Acid reflux Esophagitis presence: without esophagitis Qualified Code(s): K21.9 - Gastro- esophageal reflux disease without esophagitis (5) Hypertension Hypertension type: essential hypertension Qualified Code(s): I10 - Essential (primary) hypertension
[2022-08-24] MEDS ORDERED: POTASSIUM CHLORIDE CRTAB 20 MEQ TABCR PO STA (12:40)
[2022-08-24 12:41] LABS: Basophils # (auto) 0.02 K/uL (0-0.2); Basophils % (auto) 0.2 %; Eosinophils # (auto) 0.16 K/uL (0-0.50); Eosinophils % (auto) 1.6 %; Immature Granulocytes # (auto) 0.04 K/uL (0.00-0.02); Immature Granulocytes % (auto) 0.4 %; Lymphocytes # (auto) 2.76 K/uL (1.2-3.4); Lymphocytes % (auto) 26.9 %; Monocytes % (auto) 5.9 %; Neutrophils # (auto) 6.67 K/uL (1.4-6.5); Platelet Estimate Normal (Normal); Polychromasia 1+; Stomatocytes 1+
[2022-08-24 12:53] LABS: Influenza A virus by PCR Negative (Neg); Influenza B virus by PCR Negative (Neg); RSV by PCR Negative (Neg); SARS CoV2 RNA(COVID-19) Ceph NEGATIVE (Negative)
[2022-08-24] MEDS: NITROGLYCERIN 2% OINTMENT 30GM TUBE EXT SCH ×3 (13:00→18:28)
[2022-08-24] MEDS ORDERED: DEXTROSE 50% 50 ML SYRINGE IV PRN ×2 (13:41→14:56)
[2022-08-24] MEDS ORDERED: GLUCOSE 40% GEL 15 GM TUBE PO PRN ×2 (13:41→14:56)
[2022-08-24] MEDS ORDERED: GLUCAGON FOR INJ 1 MG VIAL SQ PRN ×2 (13:41→14:56)
[2022-08-24] MEDS ORDERED: CARBOHYDRATES FOR HYPOGLYCEMIA PO PRN ×2 (13:41→14:56)
[2022-08-24] MEDS ORDERED: GLUCOSE 10 TAB/TUBE PO PRN ×2 (13:41→14:56)
[2022-08-24 13:48] LABS: Base Excess VBG 14.5 mEq/L; HCO3 VBG 43 mmol/L; Oxygen Saturation VBG 92.3 %; PCO2 VBG 67 mmHg (38-50); PO2 VBG 59 mmHg; pH VBG 7.41 (7.36-7.41)
--- NOTE | 2022-08-24 14:12 | Electrocardiogram Report ---
Test Reason : Blood Pressure : / mmHG Vent. Rate : 100 BPM Atrial Rate : 100 BPM P-R Int : 208 ms QRS Dur : 082 ms QT Int : 348 ms P-R-T Axes : 076 048 103 degrees QTc Int : 448 ms Normal sinus rhythm T wave abnormality, consider lateral ischemia Abnormal ECG When compared with ECG of 06-AUG-2022 20:56, Vent. rate has increased BY 36 BPM Confirmed by Angel Tejada ([id number]) on 08/24/2022 2:12:10 PM Referred By: Confirmed By:Emre Tejada
[2022-08-24] MEDS: HEPARIN SOD 5,000 UNIT/0.5 ML VIAL SQ SCH ×2 (14:47→21:27)
[2022-08-24] MEDS ORDERED: BENZONATATE 100 MG CAPSULE PO PRN (14:56)
--- NOTE | 2022-08-24 15:41 | Ultrasound Report ---
LEFT LOWER EXTREMITY VENOUS DOPPLER HISTORY: Acute pain and swelling of the left lower extremity swelling, erythema, and warmth COMPARISON STUDY: None. FINDINGS: There is normal compressibility, flow, and augmentation within the left lower extremity alva p venous system. Mild subcutaneous edema. IMPRESSION: No DVT within the left lower extremity. ACT 112: Negative or not required by law. Electronically signed by: Eduin Briseno M.D. 08/24/2022 3:40 PM
[2022-08-24] MEDS: INSULIN ASPART PER UNIT SC SCH ×3 (16:08→20:22)
[2022-08-24] MEDS ORDERED: INSULIN ASPART PER UNIT SC SCH (16:30)
[2022-08-24] MEDS: GABAPENTIN 300 MG CAP PO SCH ×2 (17:28→20:11)
[2022-08-24] MEDS: busPIRone 15 MG TAB PO SCH ×2 (17:30→20:09)
[2022-08-24] MEDS: HYDROCODONE/ACETAMOPHEN 5/325MG TAB PO PRN (18:16)
[2022-08-24] MEDS: FUROSEMIDE 40 MG/4 ML VIAL IV SCH (18:16)
[2022-08-24] MEDS: cephALEXin 500 MG CAP PO SCH ×2 (18:17→20:09)
[2022-08-24] MEDS: DOCUSATE SODIUM 100 MG CAP PO SCH (20:10)
[2022-08-24] MEDS: PRAZOSIN HCL 1 MG CAP PO SCH (20:10)
[2022-08-24] MEDS: ASCORBIC ACID 500 MG TAB PO SCH (20:11)
[2022-08-24] MEDS: clonazePAM 0.25 MG TAB PO PRN (20:15)
[2022-08-24] MEDS: clonazePAM 0.5 MG TAB PO SCH (20:20)
[2022-08-24] MEDS: LANTUS PER UNIT CHARGE SQ SCH (20:22)
[2022-08-24] MEDS: BUDESONIDE 0.5 MG/2 ML VIAL (PULMICORT) INH SCH (20:35)
[2022-08-25] MEDS: HYDROCODONE/ACETAMOPHEN 5/325MG TAB PO PRN ×3 (03:15→21:49)
[2022-08-25] MEDS: LEVOTHYROXINE SODIUM 125 MCG TABLET PO SCH (05:55)
[2022-08-25] MEDS: HEPARIN SOD 5,000 UNIT/0.5 ML VIAL SQ SCH ×3 (05:55→21:46)
[2022-08-25 06:00] LABS: Hematocrit (blood only) 31.9 % (34.1-44.9); Hemoglobin 9.9 g/dl (12.0-16.0); Mean Corpuscular Hemoglobin 27.7 pg (25.0-34.0); Mean Corpuscular Volume 89.1 fL (80.0-100.0); Mean Platelet Volume 11.3 fL (9.4-12.3); Platelet Count 196 K/uL (130-400); RDW Coefficient of Variation 17.1 % (11.5-14.5); RDW Standard Deviation 55.8 fL (36.4-46.3); Red Blood Count 3.58 M/uL (3.93-5.22); White Blood Count 8.56 K/ul (4.8-10.8)
[2022-08-25 06:43] LABS: Albumin Globulin Ratio 1.2 (0.9-2); Albumin Level 3.4 gm/dl (3.4-5.0); BUN Creatinine Ratio 31.1 (10-20); Bilirubin,Total 0.9 mg/dl (0.2-1.0); Calcium 8.7 mg/dl (8.5-10.1); Creatinine Clr Calc Pharmacy 122.8 ml/min; Est GFR (Non-African American) 99.2 ml/min; Globulin 2.9 gm/dl (2.5-4.0); Potassium 3.7 mmol/L (3.5-5.1); Total Protein 6.3 gm/dl (6.0-8.3)
[2022-08-25] MEDS: BUDESONIDE 0.5 MG/2 ML VIAL (PULMICORT) INH SCH ×2 (07:20→19:05)
--- NOTE | 2022-08-25 07:57 | Hospitalist Progress Note ---
Date of Service August 25, 2022 Assessment & Plan (1) Acute and chronic respiratory failure: Plan: -Initial hypoxia with ambulation and increased SOB likely due to CHF exacerbation as she is volume overloaded with pulmonary edema on CXR -Pro-Arnol negative. Received ceftriaxone x1 dose in the ER, discontinued. -Patient negative for COVID, influenza, RSV. No evidence of COPD exacerbation on exam. -Was given 40 mg IV Lasix in the ED, will continue with 80 mg IV BID with strict intake and output, daily weights, holding home oral diuretics. -Admission weight of 135 kg>131 today with -3060mL net balance. -Monitor on tele and pulse oximetry, prn breathing treatments, continue daytime O2 and HS AVAPS. -2 g sodium restriction while admitted. Patient definitely has dietary indiscretion that we will continue to discuss with her and her caregivers as she is admitted. -CHF program referral placed. -AM CBC and BMP. (2) Erythema of lower extremity: Plan: -LLE noted to be erythematous and warm compared to RLE. -Left lower extremity venous Doppler negative for DVT. -Continue to treat as cellulitis with cephalexin and monitor clinically. (3) Elevated troponin: Plan: -Initial HS troponin of 16.8 -> 15.6. No new EKG changes. No evidence of ACS. (4) Mixed hyperlipidemia: Plan: -Continue statin . (5) Hypertension: Plan: -Noted to be hypertensive with systolics in the low 200's on arrival to the ED . -BP improved to 140s systolic at this time. -Continue metoprolol and diuretics. (6) Severe obstructive sleep apnea: Plan: -See acute on chronic respiratory failure . (7) Chronic diastolic (congestive) heart failure: Plan: -Hold PO diuretics while on IV lasix. -Just had TTE on 08/07, will not repeat echo at this time. (8) Diabetes type 2, uncontrolled: Plan: -Continue home HS lantus at 15 units. -Correction factor of 30 and carb ratio of 11. -Monitor bsg ACHS, consistent carb diet. (9) Hypothyroidism: Plan: -Continue levothyroxine. (10) Vitamin D deficiency: Plan: -Continue Vitamin D. (11) Depression: Plan: -Continue Paxil and Buspar. (12) Anxiety: Plan: -Continue clonazepam. -See depression. (13) Acid reflux: Plan: -Continue pantoprazole. Plan Full code Heparin 5000 units every 8 hours Low-sodium type 2 diabetes diet Telemetry given brisk diuresis and electrolyte monitoring Admission and Anticipated Discharge Date Admission Date: August 24, 2022 Subjective No acute events overnight. Describes some dyspnea, improved from yesterday, but not as good as her baseline. In asking her about the foods that she is been eating over the last couple of days, she reports that her caregiver did make ham, potatoes, and green beans which she has had a couple of times in the last couple of days. She was unable to remember foods past couple of days. Review of Systems Review of Systems: All systems reviewed & are unremarkable except as noted in Subjective Physical Exam Constitutional: WD/WN, vitals as above Respiratory: Air movement throughout, bilateral basilar crackles Cardiovascular: Regular rate and rhythm no murmurs Bilateral lower extremity 1+ pitting edema Gastrointestinal (Abdomen): normal bowel sounds, soft, nontender, no hepatosplenomegaly Skin: no rashes, warm and dry Mild left lower extremity erythema compared to the right side Psychiatric: A+Ox3, euthymic affect Results & Data Results & Data ([facility]) Vital Signs (Past 12 Hours) Vital Signs Temp Pulse Pulse Resp BP Pulse Ox O2 Del Method 08/25/22 07:23 75 20 96 08/25/22 07:21 75 20 96 BiPAP 08/25/22 03:24 79 22 96 08/25/22 03:02 36.5 C 80 16 145/71 H 95 CPAP 08/25/22 01:06 79 08/24/22 23:14 36.9 C 79 15 107/64 94 CPAP 08/24/22 20:42 83 18 96 08/24/22 20:35 83 16 96 Nasal Cannula O2 Flow Rate 08/25/22 07:23 2 08/25/22 07:21 2 08/25/22 03:24 2 08/25/22 03:02 2 08/25/22 01:06 08/24/22 23:14 2 08/24/22 20:42 2 08/24/22 20:35 2 PG Care Time/CCT Total # of Minutes Spent Total Time Spent with Patient: Total time spent is greater than 50% in coordination of care (as documented) at patient's floor/unit and/or counseling patient: Coding Level of Care Code 75646 Subseq Hosp Care Lvl 3 Diagnoses Acute and chronic respiratory failure J96.20 Erythema of lower extremity L53.9 Elevated troponin R77.8 Mixed hyperlipidemia E78.2 Hypertension I10 Hypertension type: essential hypertension Severe obstructive sleep apnea G47.33 Chronic diastolic (congestive) heart failure I50.32 Diabetes type 2, uncontrolled E11.65 Glycemic state: with hyperglycemia Hypothyroidism E03.9 Hypothyroidism type: acquired Vitamin D deficiency E55.9 Depression F32.9 Depression Type: unspecified Anxiety F41.9 Acid reflux K21.9 Esophagitis presence: without esophagitis (1) Depression Depression Type: unspecified Qualified Code(s): F32.9 - Major depressive disorder, single episode, unspecified (2) Hypothyroidism Hypothyroidism type: acquired Qualified Code(s): E03.9 - Hypothyroidism, unspecified (3) Diabetes type 2, uncontrolled Glycemic state: with hyperglycemia Qualified Code(s): E11.65 - Type 2 diabetes mellitus with hyperglycemia (4) Acid reflux Esophagitis presence: without esophagitis Qualified Code(s): K21.9 - Gastro- esophageal reflux disease without esophagitis (5) Hypertension Hypertension type: essential hypertension Qualified Code(s): I10 - Essential (primary) hypertension
[2022-08-25] MEDS: POTASSIUM CHLORIDE CRTAB 20 MEQ TABCR PO SCH (08:27)
[2022-08-25] MEDS: busPIRone 15 MG TAB PO SCH ×3 (08:28→20:44)
[2022-08-25] MEDS: ASCORBIC ACID 500 MG TAB PO SCH ×2 (08:28→20:43)
[2022-08-25] MEDS: METOPROLOL SUCC 50MG EXT REL TAB PO SCH (08:28)
[2022-08-25] MEDS: CHOLECALCIFEROL 1,000 UNITS 25 MCG TAB PO SCH (08:28)
[2022-08-25] MEDS: PARoxetine HCL 20 MG TAB PO SCH (08:28)
[2022-08-25] MEDS: FUROSEMIDE 40 MG/4 ML VIAL IV SCH ×2 (08:28→16:54)
[2022-08-25] MEDS: cephALEXin 500 MG CAP PO SCH ×4 (08:28→20:43)
[2022-08-25] MEDS: PANTOprazole 40 MG TAB PO SCH (08:28)
[2022-08-25] MEDS: GABAPENTIN 300 MG CAP PO SCH ×3 (08:28→20:43)
[2022-08-25] MEDS: ATORVASTATIN 20 MG TAB PO SCH (08:28)
[2022-08-25] MEDS: ARIPiprazole 15 MG TAB PO SCH (08:28)
[2022-08-25] MEDS: DOCUSATE SODIUM 100 MG CAP PO SCH ×2 (08:28→21:46)
[2022-08-25] MEDS: UMECLIDINIUM/VILANTEROL 62.5/25MCG 7 PUFFS/INHALER INH SCH (08:29)
[2022-08-25] MEDS: FLUTICASONE FUROATE 100MCG 14 PUFFS/INHALER INH SCH (08:29)
[2022-08-25] MEDS: INSULIN ASPART PER UNIT SC SCH ×4 (08:39→20:37)
[2022-08-25] MEDS: LANTUS PER UNIT CHARGE SQ SCH ×2 (08:40→20:36)
[2022-08-25] MEDS: clonazePAM 0.25 MG TAB PO PRN (10:34)
[2022-08-25] MEDS: ALBUT/IPRATROP 3MG/0.5MG NEB 3 ML VIAL INH PRN (13:37)
[2022-08-25] MEDS: PRAZOSIN HCL 1 MG CAP PO SCH (20:43)
[2022-08-25] MEDS: clonazePAM 0.5 MG TAB PO SCH (20:43)
[2022-08-25] MEDS: CYCLOBENZAPRINE HCL 10 MG TAB PO PRN (21:55)
[2022-08-26] MEDS: BUDESONIDE 0.5 MG/2 ML VIAL (PULMICORT) INH SCH (05:12)
[2022-08-26] MEDS: HEPARIN SOD 5,000 UNIT/0.5 ML VIAL SQ SCH ×3 (05:28→21:18)
[2022-08-26] MEDS: LEVOTHYROXINE SODIUM 125 MCG TABLET PO SCH (05:28)
[2022-08-26 07:12] LABS: Hematocrit (blood only) 32.9 % (34.1-44.9); Hemoglobin 10.1 g/dl (12.0-16.0); Mean Corpuscular Hemoglobin 27.7 pg (25.0-34.0); Mean Corpuscular Hgb Conc 30.7 g/dL (32.0-36.0); Mean Corpuscular Volume 90.4 fL (80.0-100.0); Mean Platelet Volume 10.8 fL (9.4-12.3); Platelet Count 188 K/uL (130-400); RDW Coefficient of Variation 16.9 % (11.5-14.5); RDW Standard Deviation 55.9 fL (36.4-46.3); Red Blood Count 3.64 M/uL (3.93-5.22); White Blood Count 8.84 K/ul (4.8-10.8)
[2022-08-26 07:43] LABS: Albumin Globulin Ratio 1.3 (0.9-2); Albumin Level 3.5 gm/dl (3.4-5.0); BUN Creatinine Ratio 33.3 (10-20); Bilirubin,Total 1.1 mg/dl (0.2-1.0); Creatinine Clr Calc Pharmacy 148.3 ml/min; Est GFR (Non-African American) 105.3 ml/min; Globulin 2.8 gm/dl (2.5-4.0); Potassium 3.6 mmol/L (3.5-5.1); Total Protein 6.3 gm/dl (6.0-8.3)
--- NOTE | 2022-08-26 08:00 | Hospitalist Progress Note ---
Date of Service August 26, 2022 Assessment & Plan (1) Acute and chronic respiratory failure: Plan: -Initial hypoxia with ambulation and increased SOB likely due to CHF exacerbation as she is volume overloaded with pulmonary edema on CXR -Pro-Arnol negative. Received ceftriaxone x1 dose in the ER, discontinued. -Patient negative for COVID, influenza, RSV. No evidence of COPD exacerbation on exam. -Was given 40 mg IV Lasix in the ED, will continue with 80 mg IV BID with strict intake and output, daily weights, holding home oral diuretics. -Admission weight of 135 kg>128.4kg today with -3000mL net balance. -Monitor on tele and pulse oximetry, prn breathing treatments, continue daytime O2 and HS AVAPS. -2 g sodium restriction while admitted. Dietary modification on discharge. -CHF program referral completed today, can consider SGLT2 as outpatient for further optimization of heart failure regimen. We will have follow-up in heart failure clinic within 7 days of discharge. -AM CBC and BMP. (2) Abdominal pain: Plan: Developed abdominal pain this late afternoon with associated nausea/vomiting. No acute abdomen. CT abdomen and pelvis with IV contrast ordered. Zofran as needed for nausea. Has oxycodone for chronic pain; given BMI have ordered morphine 4mg IV q6h as needed for severe pain. (3) Erythema of lower extremity: Plan: -LLE noted to be erythematous and warm compared to RLE, however improved today compared to yesterday. -Left lower extremity venous Doppler negative for DVT. -Continue to treat as cellulitis with cephalexin and monitor clinically. (4) Elevated troponin: Plan: -Initial HS troponin of 16.8 -> 15.6. No new EKG changes. No evidence of ACS. (5) Mixed hyperlipidemia: Plan: -Continue statin . (6) Hypertension: Plan: -Noted to be hypertensive with systolics in the low 200's on arrival to the ED . -BP improved to [id number] systolic at this time. -Continue metoprolol and diuretics. (7) Severe obstructive sleep apnea: Plan: -See acute on chronic respiratory failure . (8) Chronic diastolic (congestive) heart failure: Plan: -Hold PO diuretics while on IV lasix. -Just had TTE on 08/07, will not repeat echo at this time. (9) Diabetes type 2, uncontrolled: Plan: -Continue home HS lantus at 15 units. -Correction factor of 30 and carb ratio of 11. -Monitor bsg ACHS, consistent carb diet. (10) Hypothyroidism: Plan: -Continue levothyroxine. (11) Vitamin D deficiency: Plan: -Continue Vitamin D. (12) Depression: Plan: -Continue Paxil and Buspar. (13) Anxiety: Plan: -Continue clonazepam. -See depression. (14) Acid reflux: Plan: -Continue pantoprazole. Plan Full code Heparin 5000 units every 8 hours Low-sodium type 2 diabetes diet Telemetry given brisk diuresis and electrolyte monitoring Admission and Anticipated Discharge Date Admission Date: August 24, 2022 Subjective Overnight: -3000 net balance No fevers, vital stable No increased oxygen needs, AVAPS overnight with 2LNC during the day. Patient reports that her breathing is better, however is having abdominal pain and nausea/vomiting this afternoon. CT abdomen and pelvis ordered and night resident made aware. Review of Systems Review of Systems: All systems reviewed & are unremarkable except as noted in Subjective Physical Exam Constitutional: WD/WN, vitals as above Respiratory: Air movement throughout, bilateral basilar crackles Cardiovascular: Regular rate and rhythm no murmurs Bilateral lower extremity 1+ pitting edema Gastrointestinal (Abdomen): normal bowel sounds, soft, nontender, no hepatosplenomegaly Normal bowel sounds, soft, tender, no acute abdomen Skin: no rashes, warm and dry Mild left lower extremity erythema compared to the right side Psychiatric: A+Ox3, euthymic affect Results & Data Results & Data ([facility]) Vital Signs (Past 12 Hours) Vital Signs Temp Pulse Pulse Resp BP Pulse Ox O2 Del Method 08/26/22 07:54 Nasal Cannula 08/26/22 07:30 36.7 C 80 18 134/73 95 Nasal Cannula 08/26/22 05:14 73 17 96 BiPAP 08/26/22 05:13 78 17 79 L 08/26/22 02:41 86 21 96 08/26/22 02:36 36.3 C L 85 16 124/71 94 CPAP 08/26/22 01:30 86 08/25/22 23:03 37.0 C 82 15 108/73 94 CPAP 08/25/22 22:05 24 97 O2 Flow Rate 08/26/22 07:54 2 08/26/22 07:30 2 08/26/22 05:14 2 08/26/22 05:13 2 08/26/22 02:41 2 08/26/22 02:36 08/26/22 01:30 08/25/22 23:03 08/25/22 22:05 2 PG Care Time/CCT Total # of Minutes Spent Total Time Spent with Patient: Total time spent is greater than 50% in coordination of care (as documented) at patient's floor/unit and/or counseling patient: Coding Level of Care Code 26796 Subseq Hosp Care Lvl 3 Diagnoses Acute and chronic respiratory failure J96.20 Abdominal pain R10.9 Erythema of lower extremity L53.9 Elevated troponin R77.8 Mixed hyperlipidemia E78.2 Hypertension I10 Hypertension type: essential hypertension Severe obstructive sleep apnea G47.33 Chronic diastolic (congestive) heart failure I50.32 Diabetes type 2, uncontrolled E11.65 Glycemic state: with hyperglycemia Hypothyroidism E03.9 Hypothyroidism type: acquired Vitamin D deficiency E55.9 Depression F32.9 Depression Type: unspecified Anxiety F41.9 Acid reflux K21.9 Esophagitis presence: without esophagitis (1) Depression Depression Type: unspecified Qualified Code(s): F32.9 - Major depressive disorder, single episode, unspecified (2) Hypothyroidism Hypothyroidism type: acquired Qualified Code(s): E03.9 - Hypothyroidism, unspecified (3) Diabetes type 2, uncontrolled Glycemic state: with hyperglycemia Qualified Code(s): E11.65 - Type 2 diabetes mellitus with hyperglycemia (4) Acid reflux Esophagitis presence: without esophagitis Qualified Code(s): K21.9 - Gastro- esophageal reflux disease without esophagitis (5) Hypertension Hypertension type: essential hypertension Qualified Code(s): I10 - Essential (primary) hypertension
[2022-08-26] MEDS: HYDROCODONE/ACETAMOPHEN 5/325MG TAB PO PRN ×2 (08:25→17:02)
[2022-08-26] MEDS: CYCLOBENZAPRINE HCL 10 MG TAB PO PRN ×2 (08:25→20:18)
[2022-08-26] MEDS: METOPROLOL SUCC 50MG EXT REL TAB PO SCH (08:26)
[2022-08-26] MEDS: CHOLECALCIFEROL 1,000 UNITS 25 MCG TAB PO SCH (08:26)
[2022-08-26] MEDS: GABAPENTIN 300 MG CAP PO SCH ×3 (08:26→20:09)
[2022-08-26] MEDS: PANTOprazole 40 MG TAB PO SCH (08:27)
[2022-08-26] MEDS: busPIRone 15 MG TAB PO SCH ×3 (08:27→20:08)
[2022-08-26] MEDS: ARIPiprazole 15 MG TAB PO SCH (08:27)
[2022-08-26] MEDS: ATORVASTATIN 20 MG TAB PO SCH (08:27)
[2022-08-26] MEDS: cephALEXin 500 MG CAP PO SCH ×4 (08:27→20:08)
[2022-08-26] MEDS: PARoxetine HCL 20 MG TAB PO SCH (08:27)
[2022-08-26] MEDS: ASCORBIC ACID 500 MG TAB PO SCH ×2 (08:28→20:28)
[2022-08-26] MEDS: UMECLIDINIUM/VILANTEROL 62.5/25MCG 7 PUFFS/INHALER INH SCH (08:28)
[2022-08-26] MEDS: FLUTICASONE FUROATE 100MCG 14 PUFFS/INHALER INH SCH (08:30)
[2022-08-26] MEDS: FUROSEMIDE 40 MG/4 ML VIAL IV SCH ×2 (08:46→17:02)
[2022-08-26] MEDS: LANTUS PER UNIT CHARGE SQ SCH ×2 (08:47→20:28)
[2022-08-26] MEDS: INSULIN ASPART PER UNIT SC SCH ×4 (08:47→20:25)
[2022-08-26] MEDS: DOCUSATE SODIUM 100 MG CAP PO SCH ×2 (08:47→20:28)
[2022-08-26] MEDS: POTASSIUM CHLORIDE CRTAB 20 MEQ TABCR PO SCH (08:47)
[2022-08-26] MEDS ORDERED: ONDANSETRON INJ 2 MG/ML 2 ML VIAL ONE (13:43)
[2022-08-26] MEDS: ONDANSETRON 4 MG OD TAB PO PRN (13:45)
[2022-08-26] MEDS ORDERED: ONDANSETRON 4 MG OD TAB ONE (13:45)
--- NOTE | 2022-08-26 13:53 | Heart Failure Consultation ---
Date of Consultation August 26, 2022 Assessment & Plan (1) (HFpEF) heart failure with preserved ejection fraction: (2) Obesity hypoventilation syndrome: (3) Severe obstructive sleep apnea: (4) Chronic respiratory failure: (5) Hypertension: (6) Obesity: Plan Patient is admitted with acute on chronic hypercapnic respiratory failure. This is likely multifactorial- HFpEF, COPD, OHS/BOBBI, deconditioning, and recent RSV infection. EF preserved at 55%. BNP is not significantly elevated which may be falsely negative due to obesity- however lower than her previous admission. She is responding very well to IV diuretics. Although she has a difficult exam, her output has been significant with stable renal function. Would continue to aggressively diurese (goal negative 1-2L per day) until her creatinine bumps. Would recommend standing weights only q am. Low sodium diet. Strict I&Os while inpatient. CHF packet ordered to the bedside. Could consider SGLT2i as outpatient to further optimize her HF regimen.Previous home dose of diuretics is Bumex 4 mg daily with Metolazone 5 mg PRN. Hypertension improved. Continue current regimen. OHS/BOBBI: Continue AVAPS at night. She reports good compliance. Disposition: Will continue to follow during hospitalization. Patient is willing to travel to [place] for appointments. Plan to formally enroll in the heart failure program. Follow up within 7 days of discharge- will schedule once there is a tentative discharge date. History of Present Illness Attending Physician: Екатерина Huber, History of Present Illness Ms. Slater is a 57 year old female with a history of Morbid Obesity, Obesity Hypoventilation Syndrome, Severe Obstructive Sleep Apnea on APAP, COPD, Chronic Respiratory Failure, Type 2 Diabetes Mellitus, Hypertension, Hypercholesterolemia, Hypothyroidism, Depression/Anxiety, GERD, and Chronic Diastolic CHF (HFpEF). She routinely follows with Jose Roberto Pedroza at the [place] office. Recent cardiac studies: 1. 08/06/22 Echo: LV normal sie. EF 65-70%. No RWMA. Concentric LVH. RV cavity is small. RV systolic function is normal. Mild . Moderate MAC. Mild MR. RVSP elevated 30-40 mmHg. Patient was admitted 08/04/22 through 08/10/22 for acute on chronic respiratory failure secondary to RSV, COPD, OHS, and possibly aspiration pneumonia. She was treated with antibiotics. She was euvolemic that admission. Patient was readmitted 08/24/22. She presented with shortness of breath, swelling, and weight gain. She was hypoxic on 2L. BNP 42. CXR with possible right pleural effusion. She was treated with IV Lasix. She was hypertensive so given Nitropaste. Doppler negative for DVT but initiated on antibiotics for cellulitis. Patient currently resting comfortably in bed. She reports her breathing is improving. She is on supplemental O2, 2 L which is her baseline. Her lower extremity edema is improving as well. She slept well with her head slightly elevated. Denies PND. She's responding well to Lasix 80 mg IV BID. She is net negative 5.6 L. Weight is 283 per bed scale. Kidney function and electrolytes stable. She continues to have a residual cough. She denies chest pain, palpitations. Allergies Allergy/AdvReac Type Severity Reaction Status Date / Time bupropion Allergy Unknown Hives Verified 08/24/22 09:19 Sulfa (Sulfonamide Allergy Unknown Hives Verified 08/24/22 09:19 Antibiotics) Home Medications Medication Instructions Recorded Confirmed Type underpads (Bed Underpads) #40 ea 02/21/20 08/24/22 Rx miscellaneous medical supply #500 ea 03/24/20 08/24/22 Rx ondansetron HCl 4 mg tablet 4 mg PO Q6H PRN Nausea 02/10/21 08/24/22 History (Julio) blood sugar diagnostic (OneTouch #500 ea 10/06/21 08/24/22 Rx Ultra Test strips) buspirone 15 mg tablet 15 mg PO TID #270 tabs 10/30/21 08/24/22 Rx cyclobenzaprine 10 mg tablet 10 mg PO BID PRN muscle spasm #60 10/30/21 08/24/22 Rx tabs budesonide 0.5 mg/2 mL suspension 0.25 mg inhalation BID #120 mL 11/17/21 08/24/22 Rx for nebulization ascorbic acid (vitamin C) 500 mg 500 mg PO BID #60 tabs 01/05/22 08/24/22 Rx tablet aripiprazole 30 mg tablet 30 mg PO DAILY 01/12/22 08/24/22 History atorvastatin 20 mg tablet 20 mg PO DAILY #90 tabs 01/12/22 08/24/22 Rx clonazepam 0.5 mg tablet (Klonopin) See Rx Instructions .Route .COMPLEX 01/12/22 08/24/22 History insulin glargine 100 unit/mL 15 unit (0.15 mL) subcut QPM #40 mL 01/12/22 08/24/22 Rx subcutaneous solution (Lantus U-100 Insulin) insulin syringes (disposable) 1 mL #500 ea 01/12/22 08/24/22 [facility] 01/12/22 08/24/22 Rx Lancets) paroxetine HCl 10 mg tablet 40 mg PO DAILY 01/12/22 08/24/22 History prazosin 1 mg capsule 3 mg PO QPM 01/12/22 08/24/22 History Bed Side Commode #1 ea 01/22/22 08/24/22 Rx Shower Chair #1 ea 01/22/22 08/24/22 Rx leg brace (Knee Support Brace) #1 ea 01/22/22 08/24/22 Rx nebulizer accessories #1 ea 01/22/22 08/24/22 Rx nebulizers #1 ea 01/22/22 08/24/22 Rx ipratropium 0.5 mg-albuterol 3 mg 3 ml inhalation QID PRN Shortness 03/10/22 08/24/22 Rx (2.5 mg base)/3 mL nebulization Of Breath Or Wheezing #180 mL soln blood sugar diagnostic ([facility] 03/26/22 08/24/22 Rx Ultra Test strips) nystatin 100,000 unit/gram topical 1 applic topical TID PRN yeast 04/19/22 08/24/22 Rx powder infection #60 grams docusate sodium 100 mg tablet 100 mg PO BID constipation #60 tabs 04/27/22 08/24/22 Rx bariatric bath tub #1 ea 05/05/22 08/24/22 Rx metoprolol succinate 50 mg 50 mg PO DAILY #90 tabs 05/10/22 08/24/22 Rx tablet,extended release 24 hr stair lift #1 ea 05/11/22 08/24/22 Rx transfer bench #1 ea 05/11/22 08/24/22 Rx metolazone 5 mg tablet 5 mg PO DAILY #30 tabs 05/20/22 08/24/22 Rx insulin lispro 100 unit/mL See Rx Instructions subcut QID #10 05/25/22 08/24/22 Rx subcutaneous solution mL bumetanide 1 mg tablet 3 mg PO DAILY 06/08/22 08/24/22 History miscellaneous medical supply #1 ea 06/08/22 08/24/22 Rx gabapentin 300 mg capsule 300 mg PO TID #90 caps 06/29/22 08/24/22 Rx levothyroxine 125 mcg capsule 125 mcg PO DAILY #90 caps 06/29/22 08/24/22 Rx fluticasone fur. 100 mcg-umeclid 1 inh inhalation DAILY #60 ea 06/30/22 08/24/22 Rx 62.5 mcg-vilant 25 mcg inhalat.powder (Trelegy Ellipta) nystatin 100,000 unit/gram topical 1 applic topical TID #30 grams 07/13/22 08/24/22 Rx ointment cholecalciferol (vitamin D3) 25 25 mcg PO DAILY #90 caps 07/29/22 08/24/22 Rx mcg (1,000 unit) capsule dulaglutide 0.75 mg/0.5 mL 0.75 mg (0.5 mL) subcut Q7D #2 mL 07/29/22 08/24/22 Rx subcutaneous pen injector (Trulicity) pantoprazole 40 mg tablet,delayed 40 mg PO DAILY #90 tabs 07/29/22 08/24/22 Rx release prednisone 20 mg tablet 40 mg PO DAILY #14 tabs 08/03/22 08/24/22 Rx benzonatate 100 mg capsule 100 mg PO TID PRN cough #20 caps 08/10/22 08/24/22 Rx nystatin 100,000 unit/gram topical 1 applic topical DAILY #30 grams 08/10/22 08/24/22 Rx cream potassium chloride 20 mEq 40 meq PO QAM 30 days #60 tabs 08/10/22 08/24/22 Rx tablet,extended release(part/cryst) hydrocodone 5 mg-acetaminophen 325 1 tab PO Q8H PRN pain #30 tabs 08/16/2208/24 Rx mg tablet triamcinolone acetonide 0.025 % 1 applic topical DAILY PRN rash 08/16/22 08/24/22 Rx topical cream #80 grams diazepam 5 mg tablet 5 mg PO USEASDIRECTD #1 tab 08/23/22 08/24/22 Rx Patient History Medical History Acid reflux Acne Acute on chronic respiratory failure with hypoxia and hypercapnia Allergic rhinitis Anemia Anxiety Arthritis Chronic diastolic (congestive) heart failure Chronic obstructive pulmonary disease Chronic respiratory failure Depression Diabetes type 2, uncontrolled Essential tremor Fatty liver H/O renal calculi H/O: iron deficiency anemia H/O: pneumonia Hearing difficulty Hepatic encephalopathy Hyperlipemia Hypertension Hypothyroidism Knee osteoarthritis Lung cancer Mass of lung Obesity hypoventilation syndrome Personal history of COVID-19 PTSD (post-traumatic stress disorder) Severe obstructive sleep apnea Urinary incontinence Vitamin D deficiency Surgical History H/O lithotripsy H/O prior ablation treatment H/O tympanostomy History of adenoidectomy History of tonsillectomy Previous section Status post tracheostomy (11/25/21) Family History Father Alcohol abuse Cardiac disorder Diabetes Gallbladder disease Hypertension Depression Mother Anxiety Depression Diabetes Hypertension Stroke Sister Breast cancer Depression Heart disease, congenital Rectal cancer Grandmother (Maternal) Lung disease Grandfather (Maternal) Heart disease Colorectal cancer Prostate cancer Denies family history of Ovarian cancer Myocardial infarction Social History Smoking Status: Former smoker Age Started Using Tobacco: 16; Age Quit Using Tobacco: 29; packs per day: 1; Second Hand Exposure: No; Hx Alcohol Use: No Hx Substance Use: No Preferred Language: [place] Communication Ability: Effective Visual Impairment: Limited Hearing Ability: Hard of Hearing Director Of Integrated Marketing Required: No Beliefs That Will Affect Care: None marital status: Unknown Current Living Situation: Alone current occupational status: disabled Other Information That Helps Us Care for You: No Feels Safe at Home: Yes Safety Concerns: Feels Safe At This Time Childhood Exposure to Second-Hand Smoke: Yes Diet Comment: Tries to maintain healthy diet. caffeine: Yes (Tea x 2 cups a day.) during the past year weight has: decreased > 10 lbs Dental Care, Regularly: No Physical Activity Frequency: Does not Exercise Physical Activity Frequency Comment: Limited by physical condition Seatbelt Use: always Sunscreen Use: Yes Assistive Devices: Cane and Walker Physical Exam Physical Exam: Constitutional: Alert, oriented, in no acute distress. Obese. O2 2L NC HEENT: Head is atraumatic and normocephalic. EOMs intact. Sclera anicteric. Face is symmetric. No perioral cyanosis. Mucous membranes moist. Neck: Supple, no JVD but difficult exam. Pulmonary: Normal respiratory effort, bibasilar crackles. Decreased breath sounds. Cardiac: Regular rate and rhythm. Normal S1 and S2, no gallops, no rubs, no murmurs Extremities: 2+ radial pulses bilaterally. 2+ posterior tibialis pulses bilaterally. 1-2+ pitting edema. No cyanosis or clubbing. Mild erythema left lower tib Abdomen: Normal bowel sounds, soft, non-tender, no abdominal mass palpated. Obese abdomen. Skin: Normal skin color, turgor, and pigmentation, no rash, no skin lesions Neurological: Patient is awake, alert, and oriented. Pleasant and cooperative. Answers questions appropriately. Speech is clear. Normal movement in all 4 extremities. Results & Data ([facility]) Vital Signs (Past 12 Hours) Vital Signs Temp Pulse Pulse Resp BP Pulse Ox O2 Del Method 08/26/22 07:54 Nasal Cannula 08/26/22 07:30 98.1 F 80 18 134/73 95 Nasal Cannula 08/26/22 05:14 73 17 96 BiPAP 08/26/22 05:13 78 17 79 L 08/26/22 02:41 86 21 96 08/26/22 02:36 97.3 F L 85 16 124/71 94 CPAP 08/26/22 01:30 86 08/25/22 23:03 98.6 F 82 15 108/73 94 CPAP 08/25/22 22:05 24 97 O2 Flow Rate 08/26/22 07:54 2 08/26/22 07:30 2 08/26/22 05:14 2 08/26/22 05:13 2 08/26/22 02:41 2 08/26/22 02:36 08/26/22 01:30 08/25/22 23:03 08/25/22 22:05 2 Coding Level of Care Code 15206 Initial Inpt Care Lvl 3 Diagnoses (HFpEF) heart failure with preserved ejection fraction I50.30 Obesity hypoventilation syndrome E66.2 Severe obstructive sleep apnea G47.33 Chronic respiratory failure J96.11; J96.12 Respiratory failure complication: hypoxia and hypercapnia Hypertension I10 Hypertension type: essential hypertension Obesity E66.9 (1) Chronic respiratory failure Respiratory failure complication: hypoxia and hypercapnia Qualified Code(s): J96.11 - Chronic respiratory failure with hypoxia; J96.12 - Chronic respiratory failure with hypercapnia (2) Hypertension Hypertension type: essential hypertension Qualified Code(s): I10 - Essential (primary) hypertension
[2022-08-26] MEDS: ALBUT/IPRATROP 3MG/0.5MG NEB 3 ML VIAL INH PRN (14:07)
[2022-08-26] MEDS ORDERED: METOCLOPRAMIDE HCL INJ 5 MG/ML 2 ML VIAL IV STA (17:54)
[2022-08-26] MEDS ORDERED: OPTIRAY 350 100ml IV ONE (19:28)
[2022-08-26] MEDS: PRAZOSIN HCL 1 MG CAP PO SCH (20:09)
[2022-08-26] MEDS: clonazePAM 0.5 MG TAB PO SCH (20:18)
[2022-08-26] MEDS ORDERED: MoRPHine SULFATE 4 MG/ML 1 ML CARP\\VIAL IV PRN (21:49)
[2022-08-26] MEDS ORDERED: HYDROCODONE/ACETAMOPHEN 5/325MG TAB PO PRN (21:51)
[2022-08-26] MEDS ORDERED: MAGNESIUM SULFATE / D5W 1 GM/100 ML BAG IV ONE (22:57)
[2022-08-27] MEDS: ONDANSETRON 4 MG OD TAB PO PRN ×2 (01:08→06:10)
[2022-08-27] MEDS: HEPARIN SOD 5,000 UNIT/0.5 ML VIAL SQ SCH ×3 (05:48→21:09)
[2022-08-27] MEDS: LEVOTHYROXINE SODIUM 125 MCG TABLET PO SCH (06:09)
[2022-08-27 06:36] LABS: Hemoglobin 11.1 g/dl (12.0-16.0); Mean Corpuscular Hemoglobin 27.8 pg (25.0-34.0); Mean Corpuscular Hgb Conc 30.8 g/dL (32.0-36.0); Mean Platelet Volume 10.8 fL (9.4-12.3); Platelet Count 210 K/uL (130-400); RDW Coefficient of Variation 16.4 % (11.5-14.5); RDW Standard Deviation 54.4 fL (36.4-46.3); White Blood Count 9.28 K/ul (4.8-10.8)
[2022-08-27 07:03] LABS: Albumin Globulin Ratio 1.2 (0.9-2); Albumin Level 3.8 gm/dl (3.4-5.0); BUN Creatinine Ratio 22.2 (10-20); Bilirubin,Total 1.1 mg/dl (0.2-1.0); Calcium 9.7 mg/dl (8.5-10.1); Creatinine Clr Calc Pharmacy 117.3 ml/min; Est GFR (African American) 113.8 ml/min; Est GFR (Non-African American) 98.2 ml/min; Globulin 3.2 gm/dl (2.5-4.0); Potassium 3.9 mmol/L (3.5-5.1)
--- NOTE | 2022-08-27 07:31 | Hospitalist Progress Note ---
Date of Service August 27, 2022 Assessment & Plan (1) Acute and chronic respiratory failure: Plan: -Initial hypoxia with ambulation and increased SOB likely due to CHF exacerbation as she is volume overloaded with pulmonary edema on CXR. -Pro-Arnol negative. Received ceftriaxone x1 dose in the ER, discontinued. -Patient negative for COVID, influenza, RSV. No evidence of COPD exacerbation on exam. -Was given 40 mg IV Lasix in the ED, will continue with 80 mg IV BID with strict intake and output, daily weights, holding home oral diuretics. -Admission weight of 135 kg>128.4kg today with -3000mL net balance. -Monitor on tele and pulse oximetry, prn breathing treatments, continue daytime O2 and HS AVAPS. -2 g sodium restriction while admitted. Dietary modification on discharge. -CHF program referral completed today, can consider SGLT2 as outpatient for further optimization of heart failure regimen. We will have follow-up in heart failure clinic within 7 days of discharge. -AM CBC and BMP. (2) SBO (small bowel obstruction): Plan: -Developed abdominal pain this yesterday afternoon with associated nausea/vomiting. -No acute abdomen. -CT abdomen and pelvis with IV contrast ordered; shows Meckel's diverticulum with adhesions resulting in small bowel obstruction. -NGT placed with improvement in symptoms. -General Surgery consulted and appreciate recommendations: If requires surgery due to medical comorbidities and morbid obesity will likely need transfer to tertiary center. -[facility], [facility] Transfer physician spoken to; no transfer at this time given medically stable with NGT. Recommended CTAP with PO and IV contrast, clamp tube to give contrast. Will attempt with pre-treatment with pain/anxiety/nausea meds. -Zofran as needed for nausea, and morphine as needed for pain. (3) Meckel's diverticulitis: Plan: see above (4) Erythema of lower extremity: Plan: -LLE noted to be erythematous and warm compared to RLE, however improved today compared to yesterday. -Left lower extremity venous Doppler negative for DVT. -Continue to treat as cellulitis with cefazolin. (5) Elevated troponin: Plan: -Initial HS troponin of 16.8 -> 15.6. No new EKG changes. No evidence of ACS. (6) Mixed hyperlipidemia: Plan: -Continue statin. (7) Hypertension: Plan: -Noted to be hypertensive with systolics in the low 200's on arrival to the ED. -BP improved to [id number] systolic at this time. -Continue metoprolol IV and diuretics. (8) Severe obstructive sleep apnea: Plan: -See acute on chronic respiratory failure. (9) Chronic diastolic (congestive) heart failure: Plan: -Continue IV lasix. -Just had TTE on 08/07, will not repeat echo at this time. (10) Diabetes type 2, uncontrolled: Plan: -NPO for now, decrease basal insulin. -Correction factor of 30 and carb ratio of 11. (11) Hypothyroidism: Plan: -Continue levothyroxine when not NPO. (12) Depression: Plan: -Continue Paxil and Buspar when not NPO. (13) Anxiety: Plan: Klonopin switched to Valium IV prn given NPO. -See depression. (14) Acid reflux: Plan: -Continue pantoprazole IV. Plan Full code Heparin 5000 units every 8 hours NPO with NGT Telemetry given brisk diuresis and electrolyte monitoring Admission and Anticipated Discharge Date Admission Date: August 24, 2022 Subjective Overnight had worsening of nausea, intermittent abdominal pain, breathing is better than yesterday. No other complaints. Review of Systems Review of Systems: All systems reviewed & are unremarkable except as noted in Subjective Physical Exam Constitutional: WD/WN, vitals as above Respiratory: Air movement throughout, bilateral basilar crackles Cardiovascular: Regular rate and rhythm no murmurs Bilateral lower extremity 1+ pitting edema Gastrointestinal (Abdomen): Normal bowel sounds, abdomen soft, distended, moderately tender in upper abdomen without rebound or guarding Skin: no rashes, warm and dry Mild left lower extremity erythema compared to the right side Psychiatric: A+Ox3, euthymic affect Results & Data Results & Data ([facility]) Vital Signs (Past 12 Hours) Vital Signs Temp Pulse Pulse Resp BP BP Pulse Ox 08/27/22 06:42 37.2 C 89 18 149/80 H 97 08/27/22 04:53 89 08/27/22 03:30 96 H 22 97 08/27/22 02:48 37.4 C 93 H 14 165/90 H 92 08/26/22 20:30 08/26/22 23:18 88 154/85 H 08/26/22 22:50 37.6 C H 90 20 192/94 H 95 08/26/22 21:50 88 21 99 08/26/22 19:37 37.1 C 85 18 162/90 H 99 O2 Del Method O2 Flow Rate 08/27/22 06:42 Nasal Cannula 2 08/27/22 04:53 08/27/22 03:30 5 08/27/22 02:48 CPAP 08/26/22 20:30 Nasal Cannula 2 08/26/22 23:18 08/26/22 22:50 BiPAP 08/26/22 21:50 2 08/26/22 19:37 Nasal Cannula 3 PG Care Time/CCT Total # of Minutes Spent Total Time Spent with Patient: Total time spent is greater than 50% in coordination of care (as documented) at patient's floor/unit and/or counseling patient: Coding Level of Care Code 76004 Subseq Hosp Care Lvl 3 Diagnoses Acute and chronic respiratory failure J96.20 SBO (small bowel obstruction) K56.609 Meckel's diverticulitis Q43.0 Erythema of lower extremity L53.9 Elevated troponin R77.8 Mixed hyperlipidemia E78.2 Hypertension I10 Hypertension type: essential hypertension Severe obstructive sleep apnea G47.33 Chronic diastolic (congestive) heart failure I50.32 Diabetes type 2, uncontrolled E11.65 Glycemic state: with hyperglycemia Hypothyroidism E03.9 Hypothyroidism type: acquired Depression F32.9 Depression Type: unspecified Anxiety F41.9 Acid reflux K21.9 Esophagitis presence: without esophagitis (1) Depression Depression Type: unspecified Qualified Code(s): F32.9 - Major depressive disorder, single episode, unspecified (2) Hypothyroidism Hypothyroidism type: acquired Qualified Code(s): E03.9 - Hypothyroidism, unspecified (3) Diabetes type 2, uncontrolled Glycemic state: with hyperglycemia Qualified Code(s): E11.65 - Type 2 diabetes mellitus with hyperglycemia (4) Acid reflux Esophagitis presence: without esophagitis Qualified Code(s): K21.9 - Gastro- esophageal reflux disease without esophagitis (5) Hypertension Hypertension type: essential hypertension Qualified Code(s): I10 - Essential (primary) hypertension
[2022-08-27] MEDS: INSULIN ASPART PER UNIT SC SCH ×3 (07:48→17:08)
[2022-08-27] MEDS: ondansetron HCL 6 MG in DEXTROSE 5% 50 ML IV PRN ×3 (07:49→21:33)
[2022-08-27] MEDS: LANTUS PER UNIT CHARGE SQ SCH ×2 (08:36→21:06)
[2022-08-27] MEDS: POTASSIUM CHLORIDE CRTAB 20 MEQ TABCR PO SCH (08:37)
[2022-08-27] MEDS: cephALEXin 500 MG CAP PO SCH (08:37)
[2022-08-27] MEDS: DOCUSATE SODIUM 100 MG CAP PO SCH (08:37)
[2022-08-27] MEDS: FUROSEMIDE 40 MG/4 ML VIAL IV SCH ×2 (08:37→17:26)
[2022-08-27] MEDS: CYCLOBENZAPRINE HCL 10 MG TAB PO PRN (08:37)
[2022-08-27] MEDS: FLUTICASONE FUROATE 100MCG 14 PUFFS/INHALER INH SCH (08:37)
[2022-08-27] MEDS: PANTOprazole 40 MG TAB PO SCH (08:38)
[2022-08-27] MEDS: UMECLIDINIUM/VILANTEROL 62.5/25MCG 7 PUFFS/INHALER INH SCH (08:38)
[2022-08-27] MEDS: GABAPENTIN 300 MG CAP PO SCH (08:38)
[2022-08-27] MEDS: busPIRone 15 MG TAB PO SCH (08:38)
[2022-08-27] MEDS: ATORVASTATIN 20 MG TAB PO SCH (08:38)
[2022-08-27] MEDS: ARIPiprazole 15 MG TAB PO SCH (08:38)
[2022-08-27] MEDS: METOPROLOL SUCC 50MG EXT REL TAB PO SCH (08:39)
[2022-08-27] MEDS: PARoxetine HCL 20 MG TAB PO SCH (08:39)
[2022-08-27] MEDS: ASCORBIC ACID 500 MG TAB PO SCH (08:40)
[2022-08-27] MEDS: CHOLECALCIFEROL 1,000 UNITS 25 MCG TAB PO SCH (08:40)
--- NOTE | 2022-08-27 08:52 | CT Scan Report ---
ABDOMEN AND PELVIS CT WITH IV CONTRAST CT DOSE: 0.00 mGy.cm HISTORY: Acute generalized abdominal pain with nausea and vomiting abd pain vomiting TECHNIQUE: Multiaxial CT images of the abdomen and pelvis were performed following the IV administrat ion of 88 cc of Optiray, A dose lowering technique was utilized adhering to the principles of ALARA. COMPARISON STUDY: CTA chest 08/07/2022 FINDINGS: Cardiomegaly with mitral annular calcifications. There is atelectasis with volume loss with in the right lung base. Chronic right hemidiaphragmatic elevation. No pneumatosis or pneumoperitoneum . Unremarkable spleen, pancreas, gallbladder and adrenal glands. The liver is mildly enlarged. No hepat ic mass identified. There is patency of the hepatic and portal veins. There are least 4 nonobstructin g calculi of the right kidney measuring up to 6 mm within the inferior pole. There are at least 5 non obstructing calculi of the left kidney measuring up to 3 mm. Subcentimeter hypodensity of the superio r pole left kidney is too small to characterize, likely a cyst. No ureteral calculi or hydronephrosis . Decompressed urinary bladder with a Russo catheter in place. Air is also noted within the urinary b ladder lumen. Unremarkable uterus and adnexa. Aorta and IVC are unremarkable. No lymphadenopathy. There are several dilated air and fluid-filled loops of small bowel measuring up to 3 cm. Transition point is noted within the abdominal right lower quadrant on image 373 series 3 with stool-filled loop of small bowel just proximal to the transition point. Additionally, proximal to the focal site of na rrowing there is a stool-filled tubular blind ending structure measuring approximately 6 cm in length and 2.6 cm transversely, image 346. Mild colonic diverticulosis. No CT evidence of acute appendiciti s. The appendix however is not definitively seen. Unremarkable soft tissues. Degenerative changes of the spine, pelvis and hips. Transitional lumbosacral anatomy. Right breast varicosities. IMPRESSION: 1. Small bowel obstruction with transition point within the abdominal right lower quadrant. Just prox imal to the site of obstruction is a blind-ending stool-filled tubular structure involving a loop of ileum. Findings are suggestive of a Meckel's diverticulum, likely with associated adhesion or mesodiv erticular band resulting in the obstruction. 2. No pneumoperitoneum. 3. Nonobstructing bilateral nephrolithiasis. 4. Colonic diverticulosis. 5. Additional findings as above. Findings were discussed with Dr. Екатерина Huber on 08/27/2022 at 8:45 AM ACT 112: Negative or not required by law. The above report was generated using voice recognition software. It may contain grammatical, syntax o r spelling errors. Electronically signed by: Eduin Briseno M.D. 08/27/2022 8:49 AM
[2022-08-27] MEDS ORDERED: POLYETHYLENE (MIRALAX) 17 GM PACK PO SCH (09:00)
[2022-08-27] MEDS ORDERED: SENNOSIDES 8.8 MG/5 ML UDC PO SCH (09:00)
[2022-08-27] MEDS ORDERED: METOCLOPRAMIDE HCL INJ 5 MG/ML 2 ML VIAL IV STA (09:15)
[2022-08-27] MEDS ORDERED: METOCLOPRAMIDE HCL INJ 5 MG/ML 2 ML VIAL ONE (09:15)
--- NOTE | 2022-08-27 10:00 | Surgery Consultation ---
Date of Consultation August 27, 2022 Assessment & Plan (1) Abdominal pain: (2) SBO (small bowel obstruction): Plan 57 year-old female with history of morbid obesity, congestive heart failure, acute on chronic respiratory failure, severe obstructive sleep apnea, COPD, metabolic syndrome, hypertension, uncontrolled type 2 diabetes, depression, anxiety, acid reflux with recent admission here at [facility] for demand ischemia for acute hypoxia presented to ED due to increasing shortness of breath, weight gain, hypoxia due to CHF exacerbation with abdominal pain and nausea and vomiting with CT scan of abdomen and pelvis showing SBO wtih a small bowel diverticulum with possible adhesive band causing obstruction. Currently hemodynamically stable, abdomen is mildly distended with tenderness in the epigastrium however no peritonitis. Plan: Discussed with patient her imaging findings concerning for small bowel obstruction with possible adhesive band and diverticulum causing obstruction. Need to place NGT for decompression given pain and vomiting. Check lactic acid. Discussed imaging findings as well as patients recent medical history and admission with Dr. Plata and with hospitalist Dr. Ellis. Given patients morbid obesity, complex medical history with recent cardiac history (demand ischemia, CHF exacerbation, acute on chronic respiratory failure) she would be at high risk for surgical intervention and would recommend transfer to tertiary center . Keep npo Continue IV fluids Continue current medical management Discussed with Dr. Plata who agrees and recommends above. Supervising Physician Co-Signing Physician Notes Patient seen and examined. Agree with the above plan. History of Present Illness Reason for Consultation: Small bowel obstruction, Diverticulum Requesting Physician: Екатерина Huber DO Attending Physician: Екатерина Huber DO History of Present Illness Marianne is a 57 year-old female with medical history of morbid obesity, conge stive heart failure, acute and chronic respiratory failure, metabolic syndrome, severe obstructive sleep apnea, uncontrolled type 2 diabetes, hypertension, COPD, acid reflux, depression who was recently admitted here at [facility] at beginning of July for demand ischemia in setting of acute hypoxia secondary to RSV infection who presented to hospital with complaint of increasing shortness of breath and fluid overload with weight gain since discharge on 08/10. She states that her primary care doctor was the one who suggested coming to the ER and called an ambulance. States she has not had significant abdominal pain other than feeling like she had to have a bowel movement and could not. Had slight increase in abdominal pain yesterday with two episodes of vomiting and nausea. CT scan of abdomen was obtained. She has a history of section and tubal ligation many years ago with lower longitudinal incision and history of feeding tube about 1 year ago after epsidoe of being nonresponsive and needing a tracheostomy and feeing tube. No other abdominal surgeries. She is currently sitting up in bed, having some abdominal pain in the left upper quadrant and feeling bloated with nausea. Last episode of vomiting was about 45 minutes ago. Not passing any gas today. Last bowel movement was yesterday in which she had three bowel movements. Allergies Allergy/AdvReac Type Severity Reaction Status Date / Time bupropion Allergy Unknown Hives Verified 08/24/22 09:19 Sulfa (Sulfonamide Allergy Unknown Hives Verified 08/24/22 09:19 Antibiotics) Home Medications Medication Instructions Recorded Confirmed Type underpads (Bed Underpads) #40 ea 02/21/20 08/24/22 Rx miscellaneous medical supply #500 ea 03/24/20 08/24/22 Rx ondansetron HCl 4 mg tablet 4 mg PO Q6H PRN Nausea 02/10/21 08/24/22 History (Zofran) blood sugar diagnostic (OneTouch #500 ea 10/06/21 08/24/22 Rx Ultra Test strips) buspirone 15 mg tablet 15 mg PO TID #270 tabs 10/30/21 08/24/22 Rx cyclobenzaprine 10 mg tablet 10 mg PO BID PRN muscle spasm #60 10/30/21 08/24/22 Rx tabs budesonide 0.5 mg/2 mL suspension 0.25 mg inhalation BID #120 mL 11/17/21 08/24/22 Rx for nebulization ascorbic acid (vitamin C) 500 mg 500 mg PO BID #60 tabs 01/05/22 08/24/22 Rx tablet aripiprazole 30 mg tablet 30 mg PO DAILY 01/12/22 08/24/22 History atorvastatin 20 mg tablet 20 mg PO DAILY #90 tabs 01/12/22 08/24/22 Rx clonazepam 0.5 mg tablet (Klonopin) See Rx Instructions .Route .COMPLEX 01/12/22 08/24/22 History insulin glargine 100 unit/mL 15 unit (0.15 mL) subcut QPM #40 mL 01/12/22 08/24/22 Rx subcutaneous solution (Lantus U-100 Insulin) insulin syringes (disposable) 1 mL #500 ea 01/12/22 08/24/22 Rx lancets [facility]a 01/12/22 08/24/22 Rx Lancets) paroxetine HCl 10 mg tablet 40 mg PO DAILY 01/12/22 08/24/22 History prazosin 1 mg capsule 3 mg PO QPM 01/12/22 08/24/22 History Bed Side Commode #1 ea 01/22/22 08/24/22 Rx Shower Chair #1 ea 01/22/22 08/24/22 Rx leg brace (Knee Support Brace) #1 ea 01/22/22 08/24/22 Rx nebulizer accessories #1 ea 01/22/22 08/24/22 Rx nebulizers #1 ea 01/22/22 08/24/22 Rx ipratropium 0.5 mg-albuterol 3 mg 3 ml inhalation QID PRN Shortness 03/10/22 08/24/22 Rx (2.5 mg base)/3 mL nebulization Of Breath Or Wheezing #180 mL soln blood sugar diagnostic ([facility] 03/26/22 08/24/22 Rx Ultra Test strips) nystatin 100,000 unit/gram topical 1 applic topical TID PRN yeast 04/19/22 08/24/22 Rx powder infection #60 grams docusate sodium 100 mg tablet 100 mg PO BID constipation #60 tabs 04/27/2208/24 Rx bariatric bath tub #1 ea 05/05/22 08/24/22 Rx metoprolol succinate 50 mg 50 mg PO DAILY #90 tabs 05/10/22 08/24/22 Rx tablet,extended release 24 hr stair lift #1 ea 05/11/22 08/24/22 Rx transfer bench #1 ea 05/11/22 08/24/22 Rx metolazone 5 mg tablet 5 mg PO DAILY #30 tabs 05/20/22 08/24/22 Rx insulin lispro 100 unit/mL See Rx Instructions subcut QID #10 05/25/22 08/24/22 Rx subcutaneous solution mL bumetanide 1 mg tablet 3 mg PO DAILY 06/08/22 08/24/22 History miscellaneous medical supply #1 ea 06/08/22 08/24/22 Rx gabapentin 300 mg capsule 300 mg PO TID #90 caps 06/29/22 08/24/22 Rx levothyroxine 125 mcg capsule 125 mcg PO DAILY #90 caps 06/29/22 08/24/22 Rx fluticasone fur. 100 mcg-umeclid 1 inh inhalation DAILY #60 ea 06/30/22 08/24/22 Rx 62.5 mcg-vilant 25 mcg inhalat.powder (Trelegy Ellipta) nystatin 100,000 unit/gram topical 1 applic topical TID #30 grams 07/13/22 08/24/22 Rx ointment cholecalciferol (vitamin D3) 25 25 mcg PO DAILY #90 caps 07/29/22 08/24/22 Rx mcg (1,000 unit) capsule dulaglutide 0.75 mg/0.5 mL 0.75 mg (0.5 mL) subcut Q7D #2 mL 07/29/22 08/24/22 Rx subcutaneous pen injector (Trulicity) pantoprazole 40 mg tablet,delayed 40 mg PO DAILY #90 tabs 07/29/22 08/24/22 Rx release prednisone 20 mg tablet 40 mg PO DAILY #14 tabs 08/03/22 08/24/22 Rx benzonatate 100 mg capsule 100 mg PO TID PRN cough #20 caps 08/10/22 08/24/22 Rx nystatin 100,000 unit/gram topical 1 applic topical DAILY #30 grams 08/10/22 08/24/22 Rx cream potassium chloride 20 mEq 40 meq PO QAM 30 days #60 tabs 08/10/22 08/24/22 Rx tablet,extended release(part/cryst) hydrocodone 5 mg-acetaminophen 325 1 tab PO Q8H PRN pain #30 tabs 08/16/22 08/24/22 Rx mg tablet triamcinolone acetonide 0.025 % 1 applic topical DAILY PRN rash 08/16/22 08/24/22 Rx topical cream #80 grams diazepam 5 mg tablet 5 mg PO USEASDIRECTD #1 tab 08/23/22 08/24/22 Rx Patient History Medical History Acid reflux Acne Acute on chronic respiratory failure with hypoxia and hypercapnia Allergic rhinitis Anemia Anxiety Arthritis Chronic diastolic (congestive) heart failure Chronic obstructive pulmonary disease Chronic respiratory failure Depression Diabetes type 2, uncontrolled Essential tremor Fatty liver H/O renal calculi H/O: iron deficiency anemia H/O: pneumonia Hearing difficulty Hepatic encephalopathy Hyperlipemia Hypertension Hypothyroidism Knee osteoarthritis Lung cancer Mass of lung Obesity hypoventilation syndrome Personal history of COVID-19 PTSD (post-traumatic stress disorder) Severe obstructive sleep apnea Urinary incontinence Vitamin D deficiency Surgical History H/O lithotripsy H/O prior ablation treatment H/O tympanostomy History of adenoidectomy History of tonsillectomy Previous section Status post tracheostomy (11/25/21) Family History Father Alcohol abuse Cardiac disorder Diabetes Gallbladder disease Hypertension Depression Mother Anxiety Depression Diabetes Hypertension Stroke Sister Breast cancer Depression Heart disease, congenital Rectal cancer Grandmother (Maternal) Lung disease Grandfather (Maternal) Heart disease Colorectal cancer Prostate cancer Denies family history of Ovarian cancer Myocardial infarction Social History Smoking Status: Former smoker Age Started Using Tobacco: 16; Age Quit Using Tobacco: 29; packs per day: 1; Second Hand Exposure: No; Hx Alcohol Use: No Hx Substance Use: No Preferred Language: Israeli Communication Ability: Effective Visual Impairment: Limited Hearing Ability: Hard of Hearing Technical Administrative Assistant Required: No Beliefs That Will Affect Care: None marital status: Unknown Current Living Situation: Alone current occupational status: disabled Feels Safe at Home: Yes Childhood Exposure to Second-Hand Smoke: Yes Diet Comment: Tries to maintain healthy diet. caffeine: Yes (Tea x 2 cups a day.) during the past year weight has: decreased > 10 lbs Dental Care, Regularly: No Physical Activity Frequency: Does not Exercise Physical Activity Frequency Comment: Limited by physical condition Seatbelt Use: always Sunscreen Use: Yes Assistive Devices: Cane and Walker Review of Systems Review of Systems: All systems reviewed & are unremarkable except as noted in HPI & below Physical Exam Constitutional: WD/WN, vitals as above + morbidly obese, cooperative and comfortable; no acute distress and not frail appearing Respiratory: normal respiratory effort; no respiratory distress, no labored breathing and no retractions currently has nasal cannula 2l/minute Gastrointestinal (Abdomen): Inspection/Auscultation: + abdomen distended (mildly distended in epigastric region) and + abdominal surgical scar (lower longitudical scar) Percussion/Palpation: + abdomen tender (epigastrium) and abdomen soft; no guarding and abdomen not rigid No peritonitis Skin: no rashes, warm and dry Psychiatric: Orientation: alert and oriented x 3 Results & Data ([facility]) Vital Signs (Past 12 Hours) Vital Signs Temp Pulse Pulse Resp BP BP Pulse Ox 08/27/22 07:51 08/27/22 06:42 37.2 C 89 18 149/80 H 97 08/27/22 04:53 89 08/27/22 03:30 96 H 22 97 08/27/22 02:48 37.4 C 93 H 14 165/90 H 92 08/26/22 23:18 88 154/85 H 08/26/22 22:50 37.6 C H 90 20 192/94 H 95 O2 Del Method O2 Flow Rate 08/27/22 07:51 Nasal Cannula 2 08/27/22 06:42 Nasal Cannula 2 08/27/22 04:53 08/27/22 03:30 5 08/27/22 02:48 CPAP 08/26/22 23:18 08/26/22 22:50 BiPAP Laboratory Results 08/27/22 08/27/22 08/27/22 Range/Units 09:35 07:22 05:51 WBC (4.8-10.8) K/ul RBC (3.93-5.22) M/uL Hgb (12.0-16.0) g/dl Hct (34.1-44.9) % MCV (80.0-100.0) fL MCH (25.0-34.0) pg MCHC (32.0-36.0) g/dL RDW Std Deviation (36.4-46.3) fL RDW Coeff of Carol (11.5-14.5) % Plt Count (130-400) K/uL MPV (9.4-12.3) fL Sodium 138 (136-145) mmol/L Potassium 3.9 (3.5-5.1) mmol/L Chloride 91 L (98-107) mmol/L Carbon Dioxide 45 H* (21-32) mmol/L Anion Gap 2 L (3-11) BUN 14 (6-23) mg/dl Creatinine 0.63 (0.6-1.2) mg/dl Est Cr Clr Drug Dosing 117.3 ml/min Est GFR ( Amer) 113.8 ml/min Est GFR (Non-Af Amer) 98.2 ml/min BUN/Creatinine Ratio 22.2 H (10-20) Glucose 156 H (70-99(Fasting)) mg/dl POC Glucose 163 H (70-99) mg/dl Lactate Pending Calcium 9.7 (8.5-10.1) mg/dl Total Bilirubin 1.1 H (0.2-1.0) mg/dl AST 13 (13-39) U/L ALT 14 (7-52) U/L Alkaline Phosphatase 118 H (34-104) U/L Total Protein 7.0 (6.0-8.3) gm/dl Albumin 3.8 (3.4-5.0) gm/dl Globulin 3.2 (2.5-4.0) gm/dl Albumin/Globulin Ratio 1.2 (0.9-2) 08/27/22 08/26/22 08/26/22 Range/Units 05:51 20:24 16:22 WBC 9.28 (4.8-10.8) K/ul RBC 4.00 (3.93-5.22) M/uL Hgb 11.1 L (12.0-16.0) g/dl Hct 36.0 (34.1-44.9) % MCV 90.0 (80.0-100.0) fL MCH 27.8 (25.0-34.0) pg MCHC 30.8 L (32.0-36.0) g/dL RDW Std Deviation 54.4 H (36.4-46.3) fL RDW Coeff of Carol 16.4 H (11.5-14.5) % Plt Count 210 (130-400) K/uL MPV 10.8 (9.4-12.3) fL Sodium (136-145) mmol/L Potassium (3.5-5.1) mmol/L Chloride (98-107) mmol/L Carbon Dioxide (21-32) mmol/L Anion Gap (3-11) BUN (6-23) mg/dl Creatinine (0.6-1.2) mg/dl Est Cr Clr Drug Dosing ml/min Est GFR ( Amer) ml/min Est GFR (Non-Af Amer) ml/min BUN/Creatinine Ratio (10-20) Glucose (70-99(Fasting)) mg/dl POC Glucose 144 H 135 H (70-99) mg/dl Lactate Calcium (8.5-10.1) mg/dl Total Bilirubin (0.2-1.0) mg/dl AST (13-39) U/L ALT (7-52) U/L Alkaline Phosphatase (34-104) U/L Total Protein (6.0-8.3) gm/dl Albumin (3.4-5.0) gm/dl Globulin (2.5-4.0) gm/dl Albumin/Globulin Ratio (0.9-2) 08/26/22 Range/Units 11:18 WBC (4.8-10.8) K/ul RBC (3.93-5.22) M/uL Hgb (12.0-16.0) g/dl Hct (34.1-44.9) % MCV (80.0-100.0) fL MCH (25.0-34.0) pg MCHC (32.0-36.0) g/dL RDW Std Deviation (36.4-46.3) fL RDW Coeff of Carol (11.5-14.5) % Plt Count (130-400) K/uL MPV (9.4-12.3) fL Sodium (136-145) mmol/L Potassium (3.5-5.1) mmol/L Chloride (98-107) mmol/L Carbon Dioxide (21-32) mmol/L Anion Gap (3-11) BUN (6-23) mg/dl Creatinine (0.6-1.2) mg/dl Est Cr Clr Drug Dosing ml/min Est GFR ( Amer) ml/min Est GFR (Non-Af Amer) ml/min BUN/Creatinine Ratio (10-20) Glucose (70-99(Fasting)) mg/dl POC Glucose 162 H (70-99) mg/dl Lactate Calcium (8.5-10.1) mg/dl Total Bilirubin (0.2-1.0) mg/dl AST (13-39) U/L ALT (7-52) U/L Alkaline Phosphatase (34-104) U/L Total Protein (6.0-8.3) gm/dl Albumin (3.4-5.0) gm/dl Globulin (2.5-4.0) gm/dl Albumin/Globulin Ratio (0.9-2) Diagnostic Findings ABDOMEN AND PELVIS CT WITH IV CONTRAST CT DOSE: 0.00 mGy.cm HISTORY: Acute generalized abdominal pain with nausea and vomiting abd pain vomiting TECHNIQUE: Multiaxial CT images of the abdomen and pelvis were performed following the IV administration of 88 cc of Optiray, A dose lowering technique was utilized adhering to the principles of ALARA. COMPARISON STUDY: CTA chest 08/07/2022 FINDINGS: Cardiomegaly with mitral annular calcifications. There is atelectasis with volume loss within the right lung base. Chronic right hemidiaphragmatic elevation. No pneumatosis or pneumoperitoneum. Unremarkable spleen, pancreas, gallbladder and adrenal glands. The liver is mildly enlarged. No hepatic mass identified. There is patency of the hepatic and portal veins. There are least 4 nonobstructing calculi of the right kidney measuring up to 6 mm within the inferior pole. There are at least 5 nonobstructing calculi of the left kidney measuring up to 3 mm. Subcentimeter hypodensity of the superior pole left kidney is too small to characterize, l ikely a cyst. No ureteral calculi or hydronephrosis. Decompressed urinary bladder with a Russo catheter in place. Air is also noted within the urinary bladder lumen. Unremarkable uterus and adnexa. Aorta and IVC are unremarkable. No lymphadenopathy. There are several dilated air and fluid-filled loops of small bowel measuring up to 3 cm. Transition point is noted within the abdominal right lower quadrant on image 373 series 3 with stool-filled loop of small bowel just proximal to the transition point. Additionally, proximal to the focal site of narrowing there is a stool-filled tubular blind ending structure measuring approximately 6 cm in length and 2.6 cm transversely, image 346. Mild colonic diverticulosis. No CT evidence of acute appendicitis. The appendix however is not definitively seen. Unremarkable soft tissues. Degenerative changes of the spine, pelvis and hips. Transitional lumbosacral anatomy. Right breast varicosities. IMPRESSION: 1. Small bowel obstruction with transition point within the abdominal right lower quadrant. Just proximal to the site of obstruction is a blind-ending stool-filled tubular structure involving a loop of ileum. Findings are suggestive of a Meckel's diverticulum, likely with associated adhesion or mesodiverticular band resulting in the obstruction. 2. No pneumoperitoneum. 3. Nonobstructing bilateral nephrolithiasis. 4. Colonic diverticulosis. 5. Additional findings as above.
[2022-08-27] MEDS: METOPROLOL TARTRATE 1 MG/ML VIAL IV SCH ×4 (10:07→23:59)
[2022-08-27] MEDS ORDERED: LIDOCAINE 4% INH SOLN 4 ML BTL TOP ONE ×2 (10:07→10:30)
[2022-08-27] MEDS ORDERED: BENZOCAINE/TETRACAIN/BUTAM 50 APPLN/5 GM CAN EXT ONE (10:32)
--- NOTE | 2022-08-27 10:42 | XRay Report ---
KUB CLINICAL HISTORY: Enteric tube placement. FINDINGS: An AP, portable, semierect radiograph of the lower chest and upper abdomen is correlated wi th abdominal CT dated 08/26/2022. An enteric tube has been placed. The tip projects below the diaphrag m over the proximal stomach. Distended gas-filled loops of small bowel in the upper abdomen indicate persistent obstruction. No evidence of intraperitoneal free air is seen. IMPRESSION: 1. An enteric tube has been placed as above. 2. Persistent small bowel obstruction. Electronically signed by: Nikunj Alan M.D. 08/27/2022 10:40 AM
[2022-08-27] MEDS: PANTOprazole 40 MG in SYRINGE 0 ML IV SCH (10:43)
[2022-08-27] MEDS: MoRPHine SULFATE 4 MG/ML 1 ML CARP\\VIAL IV PRN ×4 (10:49→22:04)
[2022-08-27] MEDS: METOCLOPRAMIDE HCL INJ 5 MG/ML 2 ML VIAL IV PRN (17:53)
--- NOTE | 2022-08-27 19:05 | Cardiology Consultation ---
Date of Consultation August 27, 2022 Assessment & Plan (1) (HFpEF) heart failure with preserved ejection fraction: (2) Elevated troponin: Plan 1. Heart failure with preserved ejection fraction: She presented with evidence of volume overload manifest primarily by an increase in weight and peripheral edema. She likely had an element of mild pulmonary vascular congestion at the time of admission. She has undergone significant diuresis since admission and her lung examination is benign. She has some significant primary pulmonary disease and chronic hypoxemia. I agree with the consultation and assessment by Charleen Zaidi for the Heart failure Service. While she is on high dose diuretics, this appears to be necessary to maintain euvolemia. I would agree with starting Jardiance and spironolactone could also be added to her medical regimen. 2. Elevated troponin: Essentially normal during this admission. Elevated troponins previously likely related to her hypoxemia and not an acute coronary syndrome. She is very sedentary. She certainly could have underlying coronary disease, but there is no specific indication for coronary evaluation at this point. Should she need to undergo surgery standard recommendations would apply which generally involve reducing myocardial oxygen demand. This would include maintaining normal blood pressure, avoiding hypotension or severe hypertension, avoiding hypoxemia and significant anemia. Maintaining a normal heart rate and avoiding significant tachycardia would also reduce her chances of ischemia in the perioperative period. 3. Valvular heart disease: She has an element of aortic stenosis and mitral regurgitation. Both are mild. This should not affect any surgery and can be monitored over time. History of Present Illness Reason for Consultation: Preoperative evaluation, NSTEMI, diastolic heart failure. Requesting Physician: Caleb Attending Physician: Екатерина Huber, History of Present Illness The patient is a 57-year-old woman with morbid obesity, chronic hypoxemia and severe sleep apnea who also suffers from heart failure with preserved ejection fraction. She was transferred from [facility] earlier this month under suspicion COVID pneumonia. She did have an element of hypoxemic respiratory failure but did not test positive for COVID at our facility. She was treated both for suspected ES V and bacterial pneumonia. She had significantly elevated biomarkers at that time that were initially treated as an acute coronary syndrome but later felt to be related to demand ischemia. The patient's condition improved and she was discharged home but reports progressive worsening of her dyspnea over several days leading up to this admission. She has also noted significant weight gain and peripheral edema. She denied fevers or chills. Did have a nonproductive cough. Patient typically ambulates around her residence with a cane. She has limited ambulation due to dyspnea. She can walk perhaps 50 ft without eating to rest. She generally sleeps upright in a hospital bed. She does use a BiPAP type device at night and supplemental oxygen at all times. She watches her weight closely and reported a recent weight gain. She takes Bumex on a daily basis and metolazone which she feels that her weight has gone up and she notices some peripheral edema. Since admission her breathing has improved. However, she did develop some abdominal complaints and is now believed to have a small-bowel obstruction. Surgery was initially being entertained, but conservative management has been selected at this time. Allergies Allergy/AdvReac Type Severity Reaction Status Date / Time bupropion Allergy Unknown Hives Verified 08/24/22 09:19 Sulfa (Sulfonamide Allergy Unknown Hives Verified 08/24/22 09:19 Antibiotics) Home Medications Medication Instructions Recorded Confirmed Type underpads (Bed Underpads) #40 ea 02/21/20 08/24/22 Rx miscellaneous medical supply #500 ea 03/24/20 08/24/22 Rx ondansetron HCl 4 mg tablet 4 mg PO Q6H PRN Nausea 02/10/21 08/24/22 History (Julio) blood sugar diagnostic (OneTouch #500 ea 10/06/21 08/24/22 Rx Ultra Test strips) buspirone 15 mg tablet 15 mg PO TID #270 tabs 10/30/21 08/24/22 Rx cyclobenzaprine 10 mg tablet 10 mg PO BID PRN muscle spasm #60 10/30/21 08/24/22 Rx tabs budesonide 0.5 mg/2 mL suspension 0.25 mg inhalation BID #120 mL 11/17/21 08/24/22 Rx for nebulization ascorbic acid (vitamin C) 500 mg 500 mg PO BID #60 tabs 01/05/22 08/24/22 Rx tablet aripiprazole 30 mg tablet 30 mg PO DAILY 01/12/22 08/24/22 History atorvastatin 20 mg tablet 20 mg PO DAILY #90 tabs 01/12/22 08/24/22 Rx clonazepam 0.5 mg tablet (Klonopin) See Rx Instructions .Route .COMPLEX 01/12/22 08/24/22 History insulin glargine 100 unit/mL 15 unit (0.15 mL) subcut QPM #40 mL 01/12/22 08/24/22 Rx subcutaneous solution (Lantus U-100 Insulin) insulin syringes (disposable) 1 mL #500 ea 01/12/22 08/24/22 Rx lancets 33 gauge ([facility] 01/12/22 08/24/22 Rx Lancets) paroxetine HCl 10 mg tablet 40 mg PO DAILY 01/12/22 08/24/22 History prazosin 1 mg capsule 3 mg PO QPM 01/12/22 08/24/22 History Bed Side Commode #1 ea 01/22/22 08/24/22 Rx Shower Chair #1 ea 01/22/22 08/24/22 Rx leg brace (Knee Support Brace) #1 ea 01/22/22 08/24/22 Rx nebulizer accessories #1 ea 01/22/22 08/24/22 Rx nebulizers #1 ea 01/22/22 08/24/22 Rx ipratropium 0.5 mg-albuterol 3 mg 3 ml inhalation QID PRN Shortness 03/10/22 08/24/22 Rx (2.5 mg base)/3 mL nebulization Of Breath Or Wheezing #180 mL soln blood sugar diagnostic ([facility] 03/26/22 08/24/22 Rx Ultra Test strips) nystatin 100,000 unit/gram topical 1 applic topical TID PRN yeast 04/19/22 08/24/22 Rx powder infection #60 grams docusate sodium 100 mg tablet 100 mg PO BID constipation #60 tabs 04/27/22 08/24/22 Rx bariatric bath tub #1 ea 05/05/22 08/24/22 Rx metoprolol succinate 50 mg 50 mg PO DAILY #90 tabs 05/10/22 08/24/22 Rx tablet,extended release 24 hr stair lift #1 ea 05/11/22 08/24/22 Rx transfer bench #1 ea 05/11/22 08/24/22 Rx metolazone 5 mg tablet 5 mg PO DAILY #30 tabs 05/20/22 08/24/22 Rx insulin lispro 100 unit/mL See Rx Instructions subcut QID #10 05/25/22 08/24/22 Rx subcutaneous solution mL bumetanide 1 mg tablet 3 mg PO DAILY 06/08/22 08/24/22 History miscellaneous medical supply #1 ea 06/08/22 08/24/22 Rx gabapentin 300 mg capsule 300 mg PO TID #90 caps 06/29/22 08/24/22 Rx levothyroxine 125 mcg capsule 125 mcg PO DAILY #90 caps 06/29/22 08/24/22 Rx fluticasone fur. 100 mcg-umeclid 1 inh inhalation DAILY #60 ea 06/30/22 08/24/22 Rx 62.5 mcg-vilant 25 mcg inhalat.powder (Trelegy Ellipta) nystatin 100,000 unit/gram topical 1 applic topical TID #30 grams 07/13/22 08/24/22 Rx ointment cholecalciferol (vitamin D3) 25 25 mcg PO DAILY #90 caps 07/29/22 08/24/22 Rx mcg (1,000 unit) capsule dulaglutide 0.75 mg/0.5 mL 0.75 mg (0.5 mL) subcut Q7D #2 mL 07/29/22 08/24/22 Rx subcutaneous pen injector (Trulicity) pantoprazole 40 mg tablet,delayed 40 mg PO DAILY #90 tabs 07/29/22 08/24/22 Rx release prednisone 20 mg tablet 40 mg PO DAILY #14 tabs 08/03/22 08/24/22 Rx benzonatate 100 mg capsule 100 mg PO TID PRN cough #20 caps 08/10/22 08/24/22 Rx nystatin 100,000 unit/gram topical 1 applic topical DAILY #30 grams 08/10/22 08/24/22 Rx cream potassium chloride 20 mEq 40 meq PO QAM 30 days #60 tabs 08/10/22 08/24/22 Rx tablet,extended release(part/cryst) hydrocodone 5 mg-acetaminophen 325 1 tab PO Q8H PRN pain #30 tabs 08/16/22 08/24/22 Rx mg tablet triamcinolone acetonide 0.025 % 1 applic topical DAILY PRN rash 08/16/22 08/24/22 Rx topical cream #80 grams diazepam 5 mg tablet 5 mg PO USEASDIRECTD #1 tab 08/23/22 08/24/22 Rx Patient History Medical History Acid reflux Acne Acute on chronic respiratory failure with hypoxia and hypercapnia Allergic rhinitis Anemia Anxiety Arthritis Chronic diastolic (congestive) heart failure Chronic obstructive pulmonary disease Chronic respiratory failure Depression Diabetes type 2, uncontrolled Essential tremor Fatty liver H/O renal calculi H/O: iron deficiency anemia H/O: pneumonia Hearing difficulty Hepatic encephalopathy Hyperlipemia Hypertension Hypothyroidism Knee osteoarthritis Lung cancer Mass of lung Obesity hypoventilation syndrome Personal history of COVID-19 PTSD (post-traumatic stress disorder) Severe obstructive sleep apnea Urinary incontinence Vitamin D deficiency Surgical History H/O lithotripsy H/O prior ablation treatment H/O tympanostomy History of adenoidectomy History of tonsillectomy Previous section Status post tracheostomy (11/25/21) Family History Father Alcohol abuse Cardiac disorder Diabetes Gallbladder disease Hypertension Depression Mother Anxiety Depression Diabetes Hypertension Stroke Sister Breast cancer Depression Heart disease, congenital Rectal cancer Grandmother (Maternal) Lung disease Grandfather (Maternal) Heart disease Colorectal cancer Prostate cancer Denies family history of Ovarian cancer Myocardial infarction Social History Smoking Status: Former smoker Age Started Using Tobacco: 16; Age Quit Using Tobacco: 29; packs per day: 1; Second Hand Exposure: No; Hx Alcohol Use: No Hx Substance Use: No Preferred Language: Togolese Communication Ability: Effective Visual Impairment: Limited Hearing Ability: Hard of Hearing 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 caffeine: Yes (Tea x 2 cups a day.) during the past year weight has: decreased > 10 lbs Dental Care, Regularly: No Physical Activity Frequency: Does not Exercise Physical Activity Frequency Comment: Limited by physical condition Seatbelt Use: always Sunscreen Use: Yes Assistive Devices: Cane and Walker Review of Systems Review of Systems: Per HPI Physical Exam Physical Exam: The patient is alert and oriented. Mood and affect appeared normal. He answered all questions appropriately. Morbidly obese. Using supplemental oxygen. HEENT: Pupils are equal and reactive to light and accommodation. Extraocular movements are intact. The sclerae are anicteric. Neuro: Cranial nerves intact Neck: Redundant neck tissue Lungs: Clear to auscultation bilaterally. She has good air movement without use of accessory muscles. No rales wheezes or rhonchi. Cardiac: Heart demonstrates a regular rate and rhythm. Normal S1 and S2. No murmurs on examination. Pulses: The patient has palpable radial pulses bilaterally that are equal in intensity Extremities: There was no evidence of hypoperfusion. There is no cyanosis or clubbing. Minimal peripheral edema. Skin: I did not appreciate any rashes on examination today. Results & Data ([facility]) Vital Signs (Past 12 Hours) Vital Signs Temp Pulse Pulse Resp BP BP BP 08/27/22 17:26 92 H 126/67 08/27/22 15:38 36.4 C L 91 H 18 126/67 08/27/22 11:23 100 H 124/71 08/27/22 11:21 37 C 100 H 16 124/71 08/27/22 07:51 Pulse Ox O2 Del Method O2 Flow Rate 08/27/22 17:26 08/27/22 15:38 96 Nasal Cannula 5 08/27/22 11:23 08/27/22 11:21 Nasal Cannula 2 08/27/22 07:51 Nasal Cannula 2 Laboratory Results Abnormal Lab Results 08/26/22 08/27/22 08/27/22 20:24 05:51 05:51 WBC 9.28 RBC 4.00 Hgb 11.1 L Hct 36.0 MCV 90.0 MCH 27.8 MCHC 30.8 L RDW Std Deviation 54.4 H RDW Coeff of Carol 16.4 H Plt Count 210 MPV 10.8 Sodium 138 Potassium 3.9 Chloride 91 L Carbon Dioxide 45 H* Anion Gap 2 L BUN 14 Creatinine 0.63 Est Cr Clr Drug Dosing 117.3 Est GFR ( Amer) 113.8 Est GFR (Non-Af Amer) 98.2 BUN/Creatinine Ratio 22.2 H Glucose 156 H POC Glucose 144 H Lactate Calcium 9.7 Total Bilirubin 1.1 H AST 13 ALT 14 Alkaline Phosphatase 118 H Total Protein 7.0 Albumin 3.8 Globulin 3.2 Albumin/Globulin Ratio 1.2 08/27/22 08/27/22 08/27/22 07:22 09:35 11:27 WBC RBC Hgb Hct MCV MCH MCHC RDW Std Deviation RDW Coeff of Carol Plt Count MPV Sodium Potassium Chloride Carbon Dioxide Anion Gap BUN Creatinine Est Cr Clr Drug Dosing Est GFR ( Amer) Est GFR (Non-Af Amer) BUN/Creatinine Ratio Glucose POC Glucose 163 H 183 H Lactate 0.8 Calcium Total Bilirubin AST ALT Alkaline Phosphatase Total Protein Albumin Globulin Albumin/Globulin Ratio Diagnostic Findings Chest x-ray obtained on 08/24/2022: Cardiomegaly with mild pulmonary vascular congestion. Possible right pleural effusion. Echocardiogram performed 08/06/2022: Preserved LV systolic function with ejection fraction of 65-70%. Moderate LVH. Mild aortic stenosis. Mild mitral regurgitation. PG Care Time/CCT Total # of Minutes Spent Total Time Spent with Patient: Total time spent is greater than 50% in coordination of care (as documented) at patient's floor/unit and/or counseling patient: Coding Level of Care Code 70889 Inpt Consult Level 4 Diagnoses (HFpEF) heart failure with preserved ejection fraction I50.30 Elevated troponin R77.8
[2022-08-27] MEDS ORDERED: OPTIRAY 350 100ml IV ONE (19:41)
--- NOTE | 2022-08-27 21:03 | CT Scan Report ---
CT abd pelvis oral and IV con CLINICAL HISTORY: ? Meckel's diverticulum TECHNIQUE: Helical axial images of the abdomen and pelvis were obtained and displayed. Automated dose lowering techniques and/or adjustment according to patient size were utilized for this exam. This e xam was performed with intravenous contrast. CT DOSE: 2043.74 mGy.cm COMPARISON: Comparison is made to CT abdomen pelvis 08/26/2022 FINDINGS: Lower chest: Bibasilar atelectasis versus scarring is seen. Biatrial enlargement is seen. Liver: Unremarkable. No focal lesions are seen. Gallbladder and biliary tree: Layering radiodense material is seen in the dependent portion of the li alvin representing sludge. No intra- or extrahepatic biliary ductal dilation. Pancreas: Unremarkable, no focal lesions. Spleen: Unremarkable. Adrenals: Unremarkable. Kidneys and ureters: Nonobstructive nephrolithiasis is seen. Subcentimeter hypodensities are seen com patible with cysts. Bladder: Russo catheter is seen. Reproductive organs: Unremarkable. Bowel: Redemonstration of multiple mildly distended loops of small bowel and a blind ending focus in the ileum compatible with Meckel's diverticulum. There is interval increase in vascular prominence in the dilated bowel loops. A few colonic diverticula are seen without evidence of diverticulitis. Lymph nodes Retroperitoneal: Unremarkable. Pelvic: Unremarkable. Mesenteric: Unremarkable. Peritoneum: Trace free peritoneal fluid is noted. Vessels: Atherosclerotic calcifications are seen. Abdominal wall: Unremarkable. Bones: Degenerative changes in the visualized spine. Incidental note is made of transitional lumbosac ral anatomy. IMPRESSION: 1. Minimally increased prominence of previously noted small bowel obstruction with a transition poin t in the right lower quadrant adjacent to a likely Meckel's diverticulum. Vascular stranding and trac e peritoneal fluid is seen, increased from prior. 2. Nonobstructing bilateral nephrolithiasis. 3. Additional findings as above. ACT 112: Negative or not required by law. Electronically signed by: Gregor Nino M.D. 08/27/2022 9:03 PM
[2022-08-27] MEDS: NYSTATIN POWDER 15GM BTL EXT PRN (22:20)
[2022-08-27] MEDS: TERCONAZOLE 0.8% PV SCH (22:47)
[2022-08-28] MEDS: INSULIN ASPART PER UNIT SC SCH ×4 (00:04→18:58)
[2022-08-28] MEDS: MoRPHine SULFATE 4 MG/ML 1 ML CARP\\VIAL IV PRN ×5 (02:15→23:16)
[2022-08-28] MEDS: ondansetron HCL 6 MG in DEXTROSE 5% 50 ML IV PRN ×2 (02:18→23:16)
[2022-08-28] MEDS: HEPARIN SOD 5,000 UNIT/0.5 ML VIAL SQ SCH ×3 (05:26→20:48)
[2022-08-28] MEDS: METOPROLOL TARTRATE 1 MG/ML VIAL IV SCH ×4 (05:26→23:19)
[2022-08-28] MEDS: METOCLOPRAMIDE HCL INJ 5 MG/ML 2 ML VIAL IV PRN ×2 (05:44→17:15)
[2022-08-28 06:11] LABS: Basophils # (auto) 0.02 K/uL (0-0.2); Basophils % (auto) 0.2 %; Eosinophils # (auto) 0.14 K/uL (0-0.50); Eosinophils % (auto) 1.3 %; Hematocrit (blood only) 37.2 % (34.1-44.9); Hemoglobin 11.8 g/dl (12.0-16.0); Immature Granulocytes # (auto) 0.04 K/uL (0.00-0.02); Immature Granulocytes % (auto) 0.4 %; Lymphocytes # (auto) 2.24 K/uL (1.2-3.4); Lymphocytes % (auto) 20.2 %; Mean Corpuscular Hemoglobin 28.1 pg (25.0-34.0); Mean Corpuscular Hgb Conc 31.7 g/dL (32.0-36.0); Mean Corpuscular Volume 88.6 fL (80.0-100.0); Monocytes # (auto) 0.58 K/uL (0.24-0.82); Monocytes % (auto) 5.2 %; Neutrophils # (auto) 8.07 K/uL (1.4-6.5); Neutrophils % (auto) 72.7 %; Platelet Count 224 K/uL (130-400); RDW Coefficient of Variation 16.2 % (11.5-14.5); RDW Standard Deviation 52.6 fL (36.4-46.3); White Blood Count 11.09 K/ul (4.8-10.8)
[2022-08-28 07:00] LABS: Albumin Globulin Ratio 1.1 (0.9-2); Albumin Level 3.7 gm/dl (3.4-5.0); BUN Creatinine Ratio 24.1 (10-20); Bilirubin,Total 1.3 mg/dl (0.2-1.0); Calcium 9.8 mg/dl (8.5-10.1); Creatinine Clr Calc Pharmacy 127.4 ml/min; Est GFR (African American) 116.9 ml/min; Est GFR (Non-African American) 100.9 ml/min; Globulin 3.3 gm/dl (2.5-4.0); Potassium 3.5 mmol/L (3.5-5.1)
--- NOTE | 2022-08-28 07:23 | Hospitalist Progress Note ---
Date of Service August 28, 2022 Assessment & Plan (1) Acute and chronic respiratory failure: Plan: -Initial hypoxia with ambulation and increased SOB likely due to CHF exacerbation as she is volume overloaded with pulmonary edema on CXR. Dietary indiscretion at home contributory. -Pro-Arnol negative. Received ceftriaxone x1 dose in the ER, discontinued. -Patient negative for COVID, influenza, RSV. No evidence of COPD exacerbation on exam. -Was given 40 mg IV Lasix in the ED, will continue with 80 mg IV BID with strict intake and output, daily weights, holding home oral diuretics. -Admission weight of 135 kg>128.4kg today with -2100mL net balance. -Monitor on tele and pulse oximetry, prn breathing treatments, continue daytime O2 and HS AVAPS. -CHF program referral completed, will initiate Jardiance/spironolactone as outpatient for further optimization of heart failure regimen. Will have follow- up in heart failure clinic within 7 days of discharge. -AM CBC and BMP. (2) SBO (small bowel obstruction): Plan: -Developed abdominal pain 08/26 with associated nausea/vomiting. -No acute abdomen. -CT abdomen and pelvis with IV contrast ordered; shows Meckel's diverticulum with adhesions resulting in small bowel obstruction. Confirmed with CTAP with PO and IV contrast. -NGT placed with improvement in symptoms, continue. -General Surgery consulted and appreciate recommendations: If requires surgery due to medical comorbidities and morbid obesity will likely need transfer to tertiary center. -[facility] Transfer physician spoken to; no transfer at this time given medically stable with NGT. Will try conservative measures through the weekend and [facility]ment. -Zofran as needed for nausea, and morphine as needed for pain. (3) Meckel's diverticulitis: Plan: see above (4) Erythema of lower extremity: Plan: -LLE noted to be erythematous and warm compared to RLE on admit, improving. -WBC count 11.09. -Left lower extremity venous Doppler negative for DVT. -Continue to treat as cellulitis with cefazolin, complete on 08/30 for total of 7 days of antibiotic therapy. (5) Elevated troponin: Plan: -Initial HS troponin of 16.8 -> 15.6. No new EKG changes. No evidence of ACS. (6) Mixed hyperlipidemia: Plan: -Continue statin. (7) Hypertension: Plan: -Noted to be hypertensive with systolics in the low 200's on arrival to the ED. -BP normotensive. -Continue metoprolol IV and diuretics. (8) Severe obstructive sleep apnea: Plan: -See acute on chronic respiratory failure. (9) Chronic diastolic (congestive) heart failure: Plan: -Continue IV lasix. -Just had TTE on 08/07, will not repeat Echo at this time. (10) Diabetes type 2, uncontrolled: Plan: -NPO for now, decrease basal insulin. -Correction factor of 30 and carb ratio of 11. (11) Hypothyroidism: Plan: -Continue levothyroxine when not NPO. (12) Depression: Plan: -Continue Paxil and Buspar when not NPO. (13) Anxiety: Plan: -Klonopin switched to Valium IV prn given NPO. -See depression. (14) Acid reflux: Plan: -Continue pantoprazole IV. Plan Full code Heparin 5000 units every 8 hours NPO with NGT Telemetry given brisk diuresis and electrolyte monitoring, SBO Admission and Anticipated Discharge Date Admission Date: August 24, 2022 Subjective Overnight no acute events. Able to tolerate CTAP contrast last night with nausea medications. NGT in place and no nausea at this time, some abdominal pain resolved with morphine. Feels her breathing, at least in bed at rest, is at her baseline. No chest pain. WBC 11.09, Hgb 11.8, CO2 44 (chronic), Alk Phos 114 (chronically elevated) Review of Systems Review of Systems: All systems reviewed & are unremarkable except as noted in Subjective Physical Exam Constitutional: WD/WN, vitals as above Respiratory: Air movement throughout, bilateral basilar crackles Cardiovascular: Regular rate and rhythm no murmurs Bilateral lower extremity 1+ pitting edema Gastrointestinal (Abdomen): normal bowel sounds, soft, nontender, no hepatosplenomegaly Normal bowel sounds, abdomen soft, distended, moderately tender in upper abdomen without rebound or guarding Skin: no rashes, warm and dry Mild left lower extremity erythema compared to the right side, improved compared to yesterday Psychiatric: A+Ox3, euthymic affect Results & Data Results & Data ([facility]) Vital Signs (Past 12 Hours) Vital Signs Temp Pulse Pulse Resp BP BP BP 08/28/22 07:19 37.4 C 88 18 158/87 H 08/28/22 07:15 92 H 08/28/22 05:23 91 H 145/72 H 08/28/22 03:56 37.2 C 90 19 158/83 H 08/28/22 01:23 98 H 08/27/22 23:59 98 H 169/93 H 08/27/22 23:57 37.5 C 98 H 18 169/93 H 08/27/22 19:57 37.5 C 94 H 19 162/84 H Pulse Ox O2 Del Method O2 Flow Rate 08/28/22 07:19 93 Nasal Cannula 3 08/28/22 07:15 08/28/22 05:23 08/28/22 03:56 98 Nasal Cannula 2 08/28/22 01:23 08/27/22 23:59 08/27/22 23:57 96 Nasal Cannula 2 08/27/22 19:57 97 Nasal Cannula 2 PG Care Time/CCT Total # of Minutes Spent Total Time Spent with Patient: Total time spent is greater than 50% in coordination of care (as documented) at patient's floor/unit and/or counseling patient: Coding Level of Care Code 48051 Subseq Hosp Care Lvl 3 Diagnoses Acute and chronic respiratory failure J96.20 SBO (small bowel obstruction) K56.609 Meckel's diverticulitis Q43.0 Erythema of lower extremity L53.9 Elevated troponin R77.8 Mixed hyperlipidemia E78.2 Hypertension I10 Hypertension type: essential hypertension Severe obstructive sleep apnea G47.33 Chronic diastolic (congestive) heart failure I50.32 Diabetes type 2, uncontrolled E11.65 Glycemic state: with hyperglycemia Hypothyroidism E03.9 Hypothyroidism type: acquired Depression F32.9 Depression Type: unspecified Anxiety F41.9 Acid reflux K21.9 Esophagitis presence: without esophagitis (1) Depression Depression Type: unspecified Qualified Code(s): F32.9 - Major depressive disorder, single episode, unspecified (2) Hypothyroidism Hypothyroidism type: acquired Qualified Code(s): E03.9 - Hypothyroidism, unspecified (3) Diabetes type 2, uncontrolled Glycemic state: with hyperglycemia Qualified Code(s): E11.65 - Type 2 diabetes mellitus with hyperglycemia (4) Acid reflux Esophagitis presence: without esophagitis Qualified Code(s): K21.9 - Gastro- esophageal reflux disease without esophagitis (5) Hypertension Hypertension type: essential hypertension Qualified Code(s): I10 - Essential (primary) hypertension
[2022-08-28] MEDS: FLUTICASONE FUROATE 100MCG 14 PUFFS/INHALER INH SCH (07:47)
[2022-08-28] MEDS: UMECLIDINIUM/VILANTEROL 62.5/25MCG 7 PUFFS/INHALER INH SCH (07:48)
[2022-08-28] MEDS: PANTOprazole 40 MG in SYRINGE 0 ML IV SCH (07:51)
[2022-08-28] MEDS: LANTUS PER UNIT CHARGE SQ SCH ×2 (07:51→20:39)
[2022-08-28] MEDS: FUROSEMIDE 40 MG/4 ML VIAL IV SCH ×2 (07:51→17:13)
--- NOTE | 2022-08-28 10:09 | Surgery Progress Note ---
Date of Service August 28, 2022 Assessment & Plan (1) Meckel's diverticulitis: Plan: morbidly obese SBO unlikely to resolve without surgical intervention Meckel's likely cause of obstruction not a surgical candidate at this facility con't conservative measures until transfer Present on Admission?: Yes (2) SBO (small bowel obstruction): Present on Admission?: Yes Admission and Anticipated Discharge Date Admission Date: August 24, 2022 Subjective alert pain about the same no flatus ngt 250 cc/8hrs Review of Systems Constitutional: no fever and no chills Respiratory: + dyspnea; no cough Cardiovascular: no chest pain Gastrointestinal: + abdominal pain, + nausea and + change in bowel habits; no vomiting Genitourinary: no dysuria Musculoskeletal: no back pain Integumentary: no lesions Neurologic: + generalized weakness; no localized weakness Endocrine: no fatigue Hematologic / Lymphatic: no easy bleeding and no easy bruising Physical Exam Constitutional: well developed, well nourished and + obese Eyes: PERRL, conjunctivae normal, anicteric sclerae ENMT: external ear and nose normal, oropharynx normal Neck: trachea midline Respiratory: normal respiratory effort Auscultation: + diminished lung sounds Cardiovascular: RRR, no murmur, no edema Gastrointestinal (Abdomen): Inspection/Auscultation: abdomen normal to inspection and + abdomen distended; + abnormal bowel sounds Pe rcussion/Palpation: + abdomen tender and abdomen soft; no guarding and abdomen not rigid Musculoskeletal: Head/Neck/Chest: normocephalic and head atraumatic Skin: no rashes, warm and dry Psychiatric: Orientation: alert and oriented x 3 Results & Data ([facility]) Vital Signs (Past 12 Hours) Vital Signs Temp Pulse Pulse Resp BP BP BP 08/28/22 07:19 37.4 C 88 18 158/87 H 08/28/22 07:15 92 H 08/28/22 05:23 91 H 145/72 H 08/28/22 03:56 37.2 C 90 19 158/83 H 08/28/22 01:23 98 H 08/27/22 23:59 98 H 169/93 H 08/27/22 23:57 37.5 C 98 H 18 169/93 H Pulse Ox O2 Del Method O2 Flow Rate 08/28/22 07:19 93 Nasal Cannula 3 08/28/22 07:15 08/28/22 05:23 08/28/22 03:56 98 Nasal Cannula 2 08/28/22 01:23 08/27/22 23:59 08/27/22 23:57 96 Nasal Cannula 2
[2022-08-28] MEDS: TERCONAZOLE 0.8% PV SCH (20:47)
[2022-08-28] MEDS ORDERED: TERCONAZOLE 0.8% PV SCH (21:00)
[2022-08-29] MEDS: INSULIN ASPART PER UNIT SC SCH ×4 (00:37→16:47)
[2022-08-29] MEDS: MoRPHine SULFATE 4 MG/ML 1 ML CARP\\VIAL IV PRN ×5 (03:48→21:06)
[2022-08-29] MEDS: HEPARIN SOD 5,000 UNIT/0.5 ML VIAL SQ SCH ×3 (05:26→21:09)
[2022-08-29] MEDS: METOPROLOL TARTRATE 1 MG/ML VIAL IV SCH ×3 (05:26→16:46)
[2022-08-29 06:07] LABS: Basophils # (auto) 0.03 K/uL (0-0.2); Basophils % (auto) 0.3 %; Eosinophils # (auto) 0.26 K/uL (0-0.50); Eosinophils % (auto) 2.3 %; Hematocrit (blood only) 38.5 % (34.1-44.9); Hemoglobin 11.9 g/dl (12.0-16.0); Immature Granulocytes # (auto) 0.03 K/uL (0.00-0.02); Immature Granulocytes % (auto) 0.3 %; Lymphocytes # (auto) 2.11 K/uL (1.2-3.4); Lymphocytes % (auto) 18.7 %; Mean Corpuscular Hemoglobin 27.7 pg (25.0-34.0); Mean Corpuscular Hgb Conc 30.9 g/dL (32.0-36.0); Mean Corpuscular Volume 89.7 fL (80.0-100.0); Mean Platelet Volume 11.1 fL (9.4-12.3); Monocytes # (auto) 0.75 K/uL (0.24-0.82); Monocytes % (auto) 6.7 %; Neutrophils # (auto) 8.09 K/uL (1.4-6.5); Neutrophils % (auto) 71.7 %; Platelet Count 227 K/uL (130-400); RDW Coefficient of Variation 16.3 % (11.5-14.5); RDW Standard Deviation 53.6 fL (36.4-46.3); Red Blood Count 4.29 M/uL (3.93-5.22); White Blood Count 11.27 K/ul (4.8-10.8)
[2022-08-29 06:55] LABS: BUN Creatinine Ratio 28.1 (10-20); Blood Urea Nitrogen 18 mg/dl (6-23); Calcium 9.9 mg/dl (8.5-10.1); Carbon Dioxide > 45 mmol/L (21-32); Chloride 89 mmol/L (98-107); Creatinine Clr Calc Pharmacy 113.2 ml/min; Est GFR (African American) 113.2 ml/min; Est GFR (Non-African American) 97.7 ml/min; Glucose 114 mg/dl (70-99(Fasting)); Potassium 3.3 mmol/L (3.5-5.1); Sodium 142 mmol/L (136-145)
--- NOTE | 2022-08-29 07:09 | Hospitalist Progress Note ---
Date of Service August 29, 2022 Assessment & Plan (1) SBO (small bowel obstruction): Plan: -Developed abdominal pain 08/26 with associated nausea/vomiting. -No acute abdomen. -CT abdomen and pelvis with IV contrast ordered; shows Meckel's diverticulum with adhesions resulting in small bowel obstruction. Confirmed with CTAP with PO and IV contrast. -NGT placed with improvement in symptoms, continue. -General Surgery consulted and appreciate recommendations: If requires surgery due to medical comorbidities and morbid obesity will likely need transfer to tertiary center. -[facility] Transfer physician spoken to; no transfer at this time given medically stable with NGT. Will try conservative measures through the weekend and discuss with [facility] Kristin if no resolution/improvement. -Zofran as needed for nausea, and morphine as needed for pain. (2) Acute and chronic respiratory failure: Plan: -Initial hypoxia with ambulation and increased SOB likely due to CHF exacerbation as she is volume overloaded with pulmonary edema on CXR. Dietary indiscretion at home contributory. -Pro-Arnol negative. Received ceftriaxone x1 dose in the ER, discontinued. -Patient negative for COVID, influenza, RSV. No evidence of COPD exacerbation on exam. -Was given 40 mg IV Lasix in the ED, will continue with 40 mg IV BID with strict intake and output, daily weights, holding home oral diuretics. -Admission weight of 135 kg>124.6kg today with -2400mL net balance. Patient has had several admissions and it is unclear what her dry weight is at this time. -Monitor on tele and pulse oximetry, prn breathing treatments, continue daytime O2 and HS AVAPS. -CHF program referral completed, will initiate Jardiance/spironolactone when no longer NPO for further optimization of heart failure regimen. Will have follow- up in heart failure clinic within 7 days of discharge. -AM CBC and BMP. (3) Meckel's diverticulitis: Plan: see above (4) Erythema of lower extremity: Plan: -LLE noted to be erythematous and warm compared to RLE on admit, improving. -WBC count 11.09. -Left lower extremity venous Doppler negative for DVT. -Continue to treat as cellulitis with cefazolin, complete on 08/30 for total of 7 days of antibiotic therapy. (5) Elevated troponin: Plan: -Initial HS troponin of 16.8 -> 15.6. No new EKG changes. No evidence of ACS. (6) Mixed hyperlipidemia: Plan: -Continue statin. (7) Hypertension: Plan: -Noted to be hypertensive with systolics in the low 200's on arrival to the ED. -BP normotensive. -Continue metoprolol IV and diuretics. (8) Severe obstructive sleep apnea: Plan: -See acute on chronic respiratory failure. (9) Chronic diastolic (congestive) heart failure: Plan: -Continue IV lasix. -Just had TTE on 08/07, will not repeat Echo at this time. (10) Diabetes type 2, uncontrolled: Plan: -NPO for now, decrease basal insulin. -Correction factor of 30 and carb ratio of 11. (11) Hypothyroidism: Plan: -Continue levothyroxine when not NPO. (12) Depression: Plan: -Continue Paxil and Buspar when not NPO. (13) Anxiety: Plan: -Klonopin switched to Valium IV prn given NPO. -See depression. (14) Acid reflux: Plan: -Continue pantoprazole IV. Plan Full code Heparin 5000 units every 8 hours NPO with NGT Telemetry given brisk diuresis and electrolyte monitoring, SBO Admission and Anticipated Discharge Date Admission Date: August 24, 2022 Subjective Had fever overnight, no fevers since. Per nursing staff, patient did not wear AVAPS due to NGT. WBC 11.27, Hgb stable 11.9, K 3.3, CO2 >45 Patient reports improvement in her abdominal pain and nausea today, however still with LUQ pain. Not feeling short of breath on baseline 2LNC Review of Systems Review of Systems: All systems reviewed & are unremarkable except as noted in Subjective Physical Exam Constitutional: WD/WN, vitals as above Respiratory: normal respiratory effort, lungs clear to auscultation Cardiovascular: Regular rate and rhythm no murmurs Bilateral lower extremity 1+ pitting edema Gastrointestinal (Abdomen): normal bowel sounds, soft, nontender, no hepatosplenomegaly Normal bowel sounds, abdomen soft, distended, moderately tender in upper abdomen without rebound or guarding Skin: no rashes, warm and dry Psychiatric: A+Ox3, euthymic affect Results & Data Results & Data ([facility]) Vital Signs (Past 12 Hours) Vital Signs Temp Pulse Pulse Resp BP BP Pulse Ox 08/29/22 05:26 91 H 133/81 12/04/22 03:43 37.4 C 91 H 18 133/81 97 08/28/22 23:19 95 H 139/63 08/28/22 22:57 38.1 C H 95 H 16 139/83 96 08/28/22 22:56 98 H 08/28/22 20:00 08/28/22 19:33 37.8 C H 18 131/83 94 O2 Del Method O2 Flow Rate 08/29/22 05:26 08/29/22 03:43 Nasal Cannula 3 08/28/22 23:19 08/28/22 22:57 Nasal Cannula 3 08/28/22 22:56 08/28/22 20:00 Nasal Cannula 2 08/28/22 19:33 Nasal Cannula 3 PG Care Time/CCT Total # of Minutes Spent Total Time Spent with Patient: Total time spent is greater than 50% in coordination of care (as documented) at patient's floor/unit and/or counseling patient: Coding Level of Care Code 65797 Subseq Hosp Care Lvl 3 Diagnoses SBO (small bowel obstruction) K56.609 Acute and chronic respiratory failure J96.20 Meckel's diverticulitis Q43.0 Erythema of lower extremity L53.9 Elevated troponin R77.8 Mixed hyperlipidemia E78.2 Hypertension I10 Hypertension type: essential hypertension Severe obstructive sleep apnea G47.33 Chronic diastolic (congestive) heart failure I50.32 Diabetes type 2, uncontrolled E11.65 Glycemic state: with hyperglycemia Hypothyroidism E03.9 Hypothyroidism type: acquired Depression F32.9 Depression Type: unspecified Anxiety F41.9 Acid reflux K21.9 Esophagitis presence: without esophagitis (1) Depression Depression Type: unspecified Qualified Code(s): F32.9 - Major depressive disorder, single episode, unspecified (2) Hypothyroidism Hypothyroidism type: acquired Qualified Code(s): E03.9 - Hypothyroidism, unspecified (3) Diabetes type 2, uncontrolled Glycemic state: with hyperglycemia Qualified Code(s): E11.65 - Type 2 diabetes mellitus with hyperglycemia (4) Acid reflux Esophagitis presence: without esophagitis Qualified Code(s): K21.9 - Gastro- esophageal reflux disease without esophagitis (5) Hypertension Hypertension type: essential hypertension Qualified Code(s): I10 - Essential (primary) hypertension
--- NOTE | 2022-08-29 07:45 | Surgery Progress Note ---
Date of Service August 29, 2022 Assessment & Plan (1) Meckel's diverticulitis: Plan: not progressing well likely will need exploration to [facility] in AM con't ngt not septic Present on Admission?: Yes (2) SBO (small bowel obstruction): Admission and Anticipated Discharge Date Admission Date: August 24, 2022 Subjective pain about the same no flatus ngt draining Review of Systems Constitutional: no fever and no chills Respiratory: + dyspnea; no cough Cardiovascular: no chest pain Gastrointestinal: + abdominal pain, + nausea and + change in bowel habits; no vomiting Genitourinary: no dysuria Musculoskeletal: no back pain Integumentary: no rash and no lesions Neurologic: no localized weakness and no generalized weakness Psychiatric: no behavioral changes Hematologic / Lymphatic: no easy bleeding and no easy bruising Physical Exam Constitutional: WD/WN, vitals as above Eyes: PERRL, conjunctivae normal, anicteric sclerae ENMT: external ear and nose normal, oropharynx normal Neck: trachea midline Respiratory: normal respiratory effort, lungs clear to auscultation Cardiovascular: RRR, no murmur, no edema Gastrointestinal (Abdomen): Inspection/Auscultation: abdomen normal to inspection, + abdomen distended and normal bowel sounds Percussion/Palpation: + abdomen tender and abdomen soft; no guarding and abdomen not rigid Musculoskeletal: Head/Neck/Chest: normocephalic and head atraumatic Skin: no rashes, warm and dry Psychiatric: Orientation: alert and oriented x 3 Results & Data ([facility]) Vital Signs (Past 12 Hours) Vital Signs Temp Pulse Pulse Resp BP BP Pulse Ox 08/29/22 05:26 91 H 133/81 08/29/22 03:43 37.4 C 91 H 18 133/81 97 08/28/22 23:19 95 H 139/63 08/28/22 22:57 38.1 C H 95 H 16 139/83 96 08/28/22 22:56 98 H 08/28/22 20:00 O2 Del Method O2 Flow Rate 08/29/22 05:26 08/29/22 03:43 Nasal Cannula 3 08/28/22 23:19 08/28/22 22:57 Nasal Cannula 3 08/28/22 22:56 08/28/22 20:00 Nasal Cannula 2
[2022-08-29] MEDS: POTASSIUM CHLORIDE / WTR 10 MEQ/100 ML PLCT IV SCH ×4 (07:53→11:12)
[2022-08-29] MEDS: FUROSEMIDE 40 MG/4 ML VIAL IV SCH ×2 (07:53→16:47)
[2022-08-29] MEDS: LANTUS PER UNIT CHARGE SQ SCH ×2 (07:53→21:05)
[2022-08-29] MEDS: UMECLIDINIUM/VILANTEROL 62.5/25MCG 7 PUFFS/INHALER INH SCH (07:54)
[2022-08-29] MEDS: FLUTICASONE FUROATE 100MCG 14 PUFFS/INHALER INH SCH (07:54)
[2022-08-29] MEDS: PANTOprazole 40 MG in SYRINGE 0 ML IV SCH (11:13)
[2022-08-29] MEDS: TERCONAZOLE 0.8% PV SCH (21:07)
[2022-08-30] MEDS: METOPROLOL TARTRATE 1 MG/ML VIAL IV SCH ×4 (00:51→18:19)
[2022-08-30] MEDS: INSULIN ASPART PER UNIT SC SCH ×4 (00:52→18:15)
[2022-08-30] MEDS: MoRPHine SULFATE 4 MG/ML 1 ML CARP\\VIAL IV PRN ×6 (01:13→22:48)
[2022-08-30] MEDS: HEPARIN SOD 5,000 UNIT/0.5 ML VIAL SQ SCH ×3 (05:50→22:52)
[2022-08-30 06:54] LABS: Basophils # (auto) 0.02 K/uL (0-0.2); Basophils % (auto) 0.2 %; Eosinophils # (auto) 0.38 K/uL (0-0.50); Eosinophils % (auto) 3.6 %; Hemoglobin 11.4 g/dl (12.0-16.0); Immature Granulocytes # (auto) 0.03 K/uL (0.00-0.02); Immature Granulocytes % (auto) 0.3 %; Lymphocytes # (auto) 2.37 K/uL (1.2-3.4); Lymphocytes % (auto) 22.6 %; Mean Corpuscular Hemoglobin 27.7 pg (25.0-34.0); Mean Corpuscular Hgb Conc 30.8 g/dL (32.0-36.0); Mean Platelet Volume 11.6 fL (9.4-12.3); Monocytes # (auto) 0.79 K/uL (0.24-0.82); Monocytes % (auto) 7.5 %; Neutrophils # (auto) 6.89 K/uL (1.4-6.5); Neutrophils % (auto) 65.8 %; Platelet Count 222 K/uL (130-400); RDW Coefficient of Variation 16.1 % (11.5-14.5); RDW Standard Deviation 53.3 fL (36.4-46.3); Red Blood Count 4.11 M/uL (3.93-5.22); White Blood Count 10.48 K/ul (4.8-10.8)
[2022-08-30 07:21] LABS: BUN Creatinine Ratio 33.3 (10-20); Blood Urea Nitrogen 20 mg/dl (6-23); Calcium 9.8 mg/dl (8.5-10.1); Carbon Dioxide > 45 mmol/L (21-32); Chloride 86 mmol/L (98-107); Creatinine Clr Calc Pharmacy 121.2 ml/min; Est GFR (African American) 115.6 ml/min; Est GFR (Non-African American) 99.8 ml/min; Glucose 123 mg/dl (70-99(Fasting)); Potassium 3.3 mmol/L (3.5-5.1); Sodium 138 mmol/L (136-145)
[2022-08-30] MEDS: NYSTATIN POWDER 15GM BTL EXT PRN (09:41)
[2022-08-30] MEDS: UMECLIDINIUM/VILANTEROL 62.5/25MCG 7 PUFFS/INHALER INH SCH (09:42)
[2022-08-30] MEDS: FLUTICASONE FUROATE 100MCG 14 PUFFS/INHALER INH SCH (09:43)
[2022-08-30] MEDS: FUROSEMIDE 40 MG/4 ML VIAL IV SCH ×2 (09:43→18:20)
[2022-08-30] MEDS: LANTUS PER UNIT CHARGE SQ SCH ×2 (09:50→20:36)
[2022-08-30] MEDS: PANTOprazole 40 MG in SYRINGE 0 ML IV SCH (10:09)
--- NOTE | 2022-08-30 10:20 | Medical Student Progress Note ---
Date of Service August 30, 2022 Assessment & Plan (1) SBO (small bowel obstruction): Plan: -Developed abdominal pain 08/26 with associated nausea/vomiting. -No acute abdomen. -CT abdomen and pelvis with IV contrast ordered; shows Meckel's diverticulum with adhesions resulting in small bowel obstruction. Confirmed with CTAP with PO and IV contrast. -NGT placed with improvement in symptoms, continue. -General Surgery consulted and appreciate recommendations: If requires surgery due to medical comorbidities and morbid obesity will likely need transfer to tertiary center. - Medically stable with NGT. Plan was to try conservative measures through the weekend and discuss with [facility] Kristin if no resolution/improvement re: surgical management. - Patient is stable. No concern for acute abdomen, however patient's condition has failed to improve for 5 days, exhausting conservative strategy. - [facility] surgery still recommending transfer to tertiary facility for surgery d/t body habitus and complex medical history. -Zofran as needed for nausea, and morphine as needed for pain. (2) Acute and chronic respiratory failure: Plan: -Initial hypoxia with ambulation and increased SOB likely due to CHF exacerbation as she is volume overloaded with pulmonary edema on CXR. Dietary indiscretion at home contributory. -Pro-Arnol negative. Received ceftriaxone x1 dose in the ER, discontinued. -Patient negative for COVID, influenza, RSV. No evidence of COPD exacerbation on exam. -Was given 40 mg IV Lasix in the ED, will continue with 40 mg IV BID with strict intake and output, daily weights, holding home oral diuretics. -Admission weight of 135 kg>124.6kg today with -2400mL net balance. Patient has had several admissions and it is unclear what her dry weight is at this time. -Monitor on tele and pulse oximetry, prn breathing treatments, continue daytime O2 and HS AVAPS. -CHF program referral completed, will initiate Jardiance/spironolactone when no longer NPO for further optimization of heart failure regimen. Will have follow- up in heart failure clinic within 7 days of discharge. -Trend AM CBC and BMP. (3) Meckel's diverticulitis: Plan: see above (4) Erythema of lower extremity: Plan: -LLE noted to be erythematous and warm compared to RLE on admit, improving. -WBC count 11.09. -Left lower extremity venous Doppler negative for DVT. -Treated as cellulitis with cefazolin. Completed treatment today (08/30) for total of 7 days of antibiotic therapy. Significant improvement on exam. (5) Elevated troponin: Plan: -Initial HS troponin of 16.8 -> 15.6. No new EKG changes. No evidence of ACS. (6) Mixed hyperlipidemia: Plan: -Continue statin. (7) Hypertension: Plan: -Noted to be hypertensive with systolics in the low 200's on arrival to the ED. -BP normotensive. -Continue metoprolol IV and diuretics. Hypertension type: essential hypertension Qualified Code(s): I10 - Essential (primary) hypertension (8) Severe obstructive sleep apnea: Plan: -See acute on chronic respiratory failure. (9) Chronic diastolic (congestive) heart failure: Plan: -Continue IV lasix. -Just had TTE on 08/07, will not repeat Echo at this time. (10) Diabetes type 2, uncontrolled: Plan: -NPO for now, decrease basal insulin. -Correction factor of 30 and carb ratio of 11. Glycemic state: with hyperglycemia Qualified Code(s): E11.65 - Type 2 diabetes mellitus with hyperglycemia (11) Hypothyroidism: Plan: -Continue levothyroxine when not NPO. Hypothyroidism type: acquired Qualified Code(s): E03.9 - Hypothyroidism, unspecified (12) Depression: Plan: -Continue Paxil and Buspar when not NPO. Depression Type: unspecified Qualified Code(s): F32.9 - Major depressive disorder, single episode, unspecified (13) Anxiety: Plan: -Klonopin switched to Valium IV prn given NPO. -See depression. (14) Acid reflux: Plan: -Continue pantoprazole IV. Esophagitis presence: without esophagitis Qualified Code(s): K21.9 - Gastro-esophageal reflux disease without esophagitis Plan Full code Heparin 5000 units every 8 hours NPO with NGT Telemetry given brisk diuresis and electrolyte monitoring, SBO Admission and Anticipated Discharge Date Admission Date: August 24, 2022 Supervising Attestation I personally examined the patient and verified all luna points of history and exam, discussed case, and agree with decision making with Hussein Swenson MS2 Belly feels a little bit worse. Vitals noted, in general she is awake and alert pleasant but appears a little bit uncomfortable. HEENT normocephalic atraumatic mucous membranes moist. Breathing unlabored no accessory muscle use good effort. Abdomen is soft but moderately distended moderate upper abdominal tenderness no guarding rebound or rigidity. Small bowel obstructionseveral days in, not improvingsymptoms a bit worse. No "red flags" for urgent surgery, but given her lack of progress, agree with general surgery that surgical intervention likely necessary. We have been asked by surgery to transfer her to a hospital with bariatric capabilities OHSmetabolic alkalosis noted, probably partly contraction from diuresis, but also I do wonder if her device settings need to be adjusted. She follows regularly with sleep medicinewe will try to facilitate follow-up given that she was supposed to see them on DVT prophylaxisHeparin subcu otherwise as above Subjective Prior to my evaluation: Marianne Juan is a 57 year old female with PMH significant for chronic respiratory failure secondary to COPD on baseline 2-3L NC during the day and AVAPS at night, CHF with preserved ejection fraction/diastolic dysfunction, complex sleep apnea, hypertension, hyperlipidemia, fatty liver disease, and anxiety who presented to the [facility] ED on 08/24/22 for weight gain and SOB. She was negative for COVID, influenza, RSV and treated with 40 mg Lasix; has continued to be treated with 40 mg Lasix BID. On 08/26, she developed abdominal pain with associated nausea and vomiting. CT abdomen/pelvis showed Meckel's diverticulum with adhesions and associated SBO. Conservative treatment measures were initiated with NGT placement and improvement of symptoms. Surgery evaluated patient and stated she would need to be transferred to [facility] for surgery due to medical comorbidities; plan for surg jenny to reevaluate patient on 08/30 to determine if she would need surgery. My evaluation: Patient reports she has been feeling better today, feeling less fatigued. However, her abdominal pain is worsening. She reports her abdominal pain is worst in the umbilical region and upper abdomen. She has not passed a bowel movement in 4-5 days. Denies dysuria or hematuria. Reports she has not been sleeping well at night because she hasn't been using her AVAPS the last couple nights; she woke every hour. She was able to use her AVAPS last night and notes that she slept soundly for 6.5 hours. Her nausea and vomiting have improved over the last day; she has not vomited and she has not had to take zofran as frequently. Denies fevers. Review of Systems Review of Systems: As noted in HPI. Physical Exam Constitutional: Fatigued appearing but in no acute distress. Resting comfortably in bed. Eyes: Sclerae anicteric. ENMT: NG tube and oxygen in place. Neck: Supple. Respiratory: Bilateral vesicular breath sounds heard anteriorly. Not in respiratory distress. Cardiovascular: Regular rate and rhythm. No lower extremity edema. Normal capillary refill. Gastrointestinal (Abdomen): Bowel sounds present. Tenderness to minimal palpation, worse over upper abdomen and umbilical region. No guarding or rebound ternderness. Skin: No rashes. Warm & dry. Improved left lower extremity erythema. Neurologic: Alert & oriented x 3. Psychiatric: Appropriate mood & affect. Results & Data ([facility]) Vital Signs (Past 12 Hours) Vital Signs Temp Pulse Pulse Resp BP BP Pulse Ox 08/30/22 08:00 08/30/22 08:02 36.7 C 88 15 117/76 97 08/30/22 06:43 92 H 08/30/22 05:50 90 117/76 08/30/22 03:09 37.7 C H 90 18 117/76 99 08/30/22 00:51 96 H 119/85 08/29/22 23:15 96 H 23 96 08/29/22 22:50 37.2 C 95 H 18 119/85 97 O2 Del Method O2 Flow Rate 08/30/22 08:00 Nasal Cannula 2 08/30/22 08:02 Nasal Cannula 2 08/30/22 06:43 08/30/22 05:50 08/30/22 03:09 CPAP 08/30/22 00:51 08/29/22 23:15 3 08/29/22 22:50 Nasal Cannula 3 Laboratory Results Laboratory Results - last 24 hr 08/29/22 08/29/22 08/29/22 11:38 18:07 23:43 WBC RBC Hgb Hct MCV MCH MCHC RDW Std Deviation RDW Coeff of Carol Plt Count MPV Immature Gran % (Auto) Neut % (Auto) Lymph % (Auto) Sterling % (Auto) Eos % (Auto) Baso % (Auto) Neut # (Auto) Lymph # (Auto) Sterling # (Auto) Eos # (Auto) Baso # (Auto) Immature Gran # (Auto) Sodium Potassium Chloride Carbon Dioxide Anion Gap BUN Creatinine Est Cr Clr Drug Dosing Est GFR ( Amer) Est GFR (Non-Af Amer) BUN/Creatinine Ratio Glucose POC Glucose 138 H 190 H 130 H Calcium 08/30/22 08/30/22 08/30/22 05:44 05:44 05:55 WBC 10.48 RBC 4.11 Hgb 11.4 L Hct 37.0 MCV 90.0 MCH 27.7 MCHC 30.8 L RDW Std Deviation 53.3 H RDW Coeff of Carol 16.1 H Plt Count 222 MPV 11.6 Immature Gran % (Auto) 0.3 Neut % (Auto) 65.8 Lymph % (Auto) 22.6 Sterling % (Auto) 7.5 Eos % (Auto) 3.6 Baso % (Auto) 0.2 Neut # (Auto) 6.89 H Lymph # (Auto) 2.37 Sterling # (Auto) 0.79 Eos # (Auto) 0.38 Baso # (Auto) 0.02 Immature Gran # (Auto) 0.03 H Sodium 138 Potassium 3.3 L Chloride 86 L Carbon Dioxide > 45 H* Anion Gap TNP BUN 20 Creatinine 0.60 Est Cr Clr Drug Dosing 121.2 Est GFR ( Amer) 115.6 Est GFR (Non-Af Amer) 99.8 BUN/Creatinine Ratio 33.3 H Glucose 123 H POC Glucose 124 H Calcium 9.8 08/30/22 09:56 WBC RBC Hgb Hct MCV MCH MCHC RDW Std Deviation RDW Coeff of Carol Plt Count MPV Immature Gran % (Auto) Neut % (Auto) Lymph % (Auto) Sterling % (Auto) Eos % (Auto) Baso % (Auto) Neut # (Auto) Lymph # (Auto) Sterling # (Auto) Eos # (Auto) Baso # (Auto) Immature Gran # (Auto) Sodium Potassium Chloride Carbon Dioxide Anion Gap BUN Creatinine Est Cr Clr Drug Dosing Est GFR ( Amer) Est GFR (Non-Af Amer) BUN/Creatinine Ratio Glucose POC Glucose 132 H Calcium
[2022-08-30] MEDS: ondansetron HCL 6 MG in DEXTROSE 5% 50 ML IV PRN (11:48)
[2022-08-30] MEDS: NYSTATIN POWDER 15GM BTL EXT SCH ×2 (13:11→20:36)
[2022-08-30] MEDS: METOCLOPRAMIDE HCL INJ 5 MG/ML 2 ML VIAL IV PRN (14:09)
--- NOTE | 2022-08-30 17:06 | Surgery Progress Note ---
Date of Service August 30, 2022 Assessment & Plan (1) SBO (small bowel obstruction): (2) Meckel's diverticulitis: Plan 57 year-old female with history of morbid obesity, congestive heart failure, acute on chronic respiratory failure, severe obstructive sleep apnea, COPD, metabolic syndrome, hypertension, uncontrolled type 2 diabetes, depression, anxiety, acid reflux with recent admission here at [facility] beginning of month for demand ischemia in setting of acute hypoxia presented to ED due to increasing shortness of breath, weight gain, and hypoxia due to CHF exacerbation . She subsequently developed abdominal pain with nausea and vomiting and a CT scan of abdomen and pelvis showing SBO with a small bowel diverticulum with possible adhesive band causing obstruction. 08/30/2022: She has not improved with conservative management with bowel rest , decompression with NGT for the last 3 days. No flatus, no bowel movement NGT with 300 cc in last shift , 1 liter yesterday Abdominal pain not improving Plan: Would recommend transfer to tertiary center for surgical intervention as she has failed conservative management for last 3 days. She has not had any bowel function and abdominal pain still persists and not improving. Discussed she is at high risk of surgical intervention given her medical comorbidities and would recommend surgical intervention at tertiary center were additional services are available given her medical comorbidities. Continue npo Continue NGT Continue pain management Discussed with Hospitalist team on recommendation for transfer. Dr. Iniguez has seen and examined pt and agrees with above recommendations. Admission and Anticipated Discharge Date Admission Date: August 24, 2022 Subjective still having abdominal pain, comes in waves, currently rating 7/10, no significant improvement in pain in last two days not passing any flatus no bowel movement Nauseated today, no vomiting still has NGT in place Physical Exam Constitutional: WD/WN, vitals as above + morbidly obese and cooperative; no acute distress and not ill appearing Respiratory: normal respiratory effort and + cough; no respiratory distress and no labored breathing Gastrointestinal (Abdomen): Inspection/Auscultation: + abdomen distended and + abdominal surgical scar (Midline section longitudinal scar); + abnormal bowel sounds Percussion/Palpation: + abdomen tender (RUQ and LUQ) and abdomen soft; no guarding and abdomen not rigid NGT with bilious/brown output Skin: no rashes, warm and dry Psychiatric: A+Ox3, euthymic affect Results & Data (MN) Vital Signs (Past 12 Hours) Vital Signs Temp Pulse Pulse Resp BP BP Pulse Ox 08/30/22 13:18 86 08/30/22 12:30 37 C 92 H 12 112/72 95 08/30/22 11:57 92 H 112/72 08/30/22 08:00 08/30/22 08:02 36.7 C 88 15 117/76 97 08/30/22 06:43 92 H 08/30/22 05:50 90 117/76 O2 Del Method O2 Flow Rate 08/30/22 13:18 08/30/22 12:30 Nasal Cannula 2 08/30/22 11:57 08/30/22 08:00 Nasal Cannula 2 08/30/22 08:02 Nasal Cannula 2 08/30/22 06:43 08/30/22 05:50 Laboratory Results 08/30/22 08/30/22 08/30/22 Range/Units 12:07 09:56 05:55 WBC (4.8-10.8) K/ul RBC (3.93-5.22) M/uL Hgb (12.0-16.0) g/dl Hct (34.1-44.9) % MCV (80.0-100.0) fL MCH (25.0-34.0) pg MCHC (32.0-36.0) g/dL RDW Std Deviation (36.4-46.3) fL RDW Coeff of Carol (11.5-14.5) % Plt Count (130-400) K/uL MPV (9.4-12.3) fL Immature Gran % (Auto) % Neut % (Auto) % Lymph % (Auto) % [place] % (Auto) % Eos % (Auto) % Baso % (Auto) % Neut # (Auto) (1.4-6.5) K/uL Lymph # (Auto) (1.2-3.4) K/uL [place] # (Auto) (0.24-0.82) K/uL Eos # (Auto) (0-0.50) K/uL Baso # (Auto) (0-0.2) K/uL Immature Gran # (Auto) (0.00-0.02) K/uL Sodium (136-145) mmol/L Potassium (3.5-5.1) mmol/L Chloride (98-107) mmol/L Carbon Dioxide (21-32) mmol/L Anion Gap BUN (6-23) mg/dl Creatinine (0.6-1.2) mg/dl Est Cr Clr Drug Dosing ml/min Est GFR ( Amer) ml/min Est GFR (Non-Af Amer) ml/min BUN/Creatinine Ratio (10-20) Glucose (70-99(Fasting)) mg/dl POC Glucose 134 H 132 H 124 H (70-99) mg/dl Calcium (8.5-10.1) mg/dl 08/30/22 08/30/22 08/29/22 Range/Units 05:44 05:44 23:43 WBC 10.48 (4.8-10.8) K/ul RBC 4.11 (3.93-5.22) M/uL Hgb 11.4 L (12.0-16.0) g/dl Hct 37.0 (34.1-44.9) % MCV 90.0 (80.0-100.0) fL MCH 27.7 (25.0-34.0) pg MCHC 30.8 L (32.0-36.0) g/dL RDW Std Deviation 53.3 H (36.4-46.3) fL RDW Coeff of Carol 16.1 H (11.5-14.5) % Plt Count 222 (130-400) K/uL MPV 11.6 (9.4-12.3) fL Immature Gran % (Auto) 0.3 % Neut % (Auto) 65.8 % Lymph % (Auto) 22.6 % [place] % (Auto) 7.5 % Eos % (Auto) 3.6 % Baso % (Auto) 0.2 % Neut # (Auto) 6.89 H (1.4-6.5) K/uL Lymph # (Auto) 2.37 (1.2-3.4) K/uL [place] # (Auto) 0.79 (0.24-0.82) K/uL Eos # (Auto) 0.38 (0-0.50) K/uL Baso # (Auto) 0.02 (0-0.2) K/uL Immature Gran # (Auto) 0.03 H (0.00-0.02) K/uL Sodium 138 (136-145) mmol/L Potassium 3.3 L (3.5-5.1) mmol/L Chloride 86 L (98-107) mmol/L Carbon Dioxide > 45 H* (21-32) mmol/L Anion Gap TNP BUN 20 (6-23) mg/dl Creatinine 0.60 (0.6-1.2) mg/dl Est Cr Clr Drug Dosing 121.2 ml/min Est GFR ( Amer) 115.6 ml/min Est GFR (Non-Af Amer) 99.8 ml/min BUN/Creatinine Ratio 33.3 H (10-20) Glucose 123 H (70-99(Fasting)) mg/dl POC Glucose 130 H (70-99) mg/dl Calcium 9.8 (8.5-10.1) mg/dl 08/29/22 Range/Units 18:07 WBC (4.8-10.8) K/ul RBC (3.93-5.22) M/uL Hgb (12.0-16.0) g/dl Hct (34.1-44.9) % MCV (80.0-100.0) fL MCH (25.0-34.0) pg MCHC (32.0-36.0) g/dL RDW Std Deviation (36.4-46.3) fL RDW Coeff of Carol (11.5-14.5) % Plt Count (130-400) K/uL MPV (9.4-12.3) fL Immature Gran % (Auto) % Neut % (Auto) % Lymph % (Auto) % [place] % (Auto) % Eos % (Auto) % Baso % (Auto) % Neut # (Auto) (1.4-6.5) K/uL Lymph # (Auto) (1.2-3.4) K/uL [place] # (Auto) (0.24-0.82) K/uL Eos # (Auto) (0-0.50) K/uL Baso # (Auto) (0-0.2) K/uL Immature Gran # (Auto) (0.00-0.02) K/uL Sodium (136-145) mmol/L Potassium (3.5-5.1) mmol/L Chloride (98-107) mmol/L Carbon Dioxide (21-32) mmol/L Anion Gap BUN (6-23) mg/dl Creatinine (0.6-1.2) mg/dl Est Cr Clr Drug Dosing ml/min Est GFR ( Amer) ml/min Est GFR (Non-Af Amer) ml/min BUN/Creatinine Ratio (10-20) Glucose (70-99(Fasting)) mg/dl POC Glucose 190 H (70-99) mg/dl Calcium (8.5-10.1) mg/dl Diagnostic Findings CT abd pelvis oral and IV con CLINICAL HISTORY: ? Meckel's diverticulum TECHNIQUE: Helical axial images of the abdomen and pelvis were obtained and displayed. Automated dose lowering techniques and/or adjustment according to patient size were utilized for this exam. This exam was performed with intravenous contrast. CT DOSE: 2043.74 mGy.cm COMPARISON: Comparison is made to CT abdomen pelvis 08/26/2022 FINDINGS: Lower chest: Bibasilar atelectasis versus scarring is seen. Biatrial enlargement is seen. Liver: Unremarkable. No focal lesions are seen. Gallbladder and biliary tree: Layering radiodense material is seen in the dependent portion of the likely representing sludge. No intra- or extrahepatic biliary ductal dilation. Pancreas: Unremarkable, no focal lesions. Spleen: Unremarkable. Adrenals: Unremarkable. Kidneys and ureters: Nonobstructive nephrolithiasis is seen. Subcentimeter hypodensities are seen compatible with cysts. Bladder: Russo catheter is seen. Reproductive organs: Unremarkable. Bowel: Redemonstration of multiple mildly distended loops of small bowel and a blind ending focus in the ileum compatible with Meckel's diverticulum. There is interval increase in vascular prominence in the dilated bowel loops. A few colonic diverticula are seen without evidence of diverticulitis. Lymph nodes Retroperitoneal: Unremarkable. Pelvic: Unremarkable. Mesenteric: Unremarkable. Peritoneum: Trace free peritoneal fluid is noted. Vessels: Atherosclerotic calcifications are seen. Abdominal wall: Unremarkable. Bones: Degenerative changes in the visualized spine. Incidental note is made of transitional lumbosacral anatomy. IMPRESSION: 1. Minimally increased prominence of previously noted small bowel obstruction with a transition point in the right lower quadrant adjacent to a likely Meckel's diverticulum. Vascular stranding and trace peritoneal fluid is seen, increased from prior. 2. Nonobstructing bilateral nephrolithiasis. 3. Additional findings as above.
--- NOTE | 2022-08-30 18:48 | Billing Data ---
Date of Service August 30, 2022 Coding Level of Care Code 76024 Subseq Hosp Care Lvl 3
--- NOTE | 2022-08-30 21:13 | Discharge Summary ---
Date of Service August 31, 2022 Admission HPI Per Admitting Provider Marianne is a 57 year old female with a PMH significant for chronic respiratory failure 2/2 COPD and obesity hypoventilation syndrome on baseline 2-3L NC during the day and AVAPS at night, CHF with preserved ejection fraction/diastolic dysfunction, complex sleep apnea, hypertension, hyperlipidemia, fatty liver disease, and anxiety who presented to the [facility] ED on 08/24/22 for weight gain and SOB. Per chart review, the patient was recently admitted to [facility] from 08/06/22- 08/10/22 after being transferred from [facility] due to respiratory distress thought to be from Covid 19 infection. She was found to be covid positive of 08/04/22 on admission to [facility] and was also found to have an NSTEMI. She was started on Vancomycin/Cefepime for possible bacterial pneumonia, started on oral steroids, and started on a heparin drip for her NSTEMI. She required Bipap during her admission at [place] and upon arrival to [facility]. Per the discharge summary, her acute on chronic respiratory failure was thought to be due to RSV as she tested positive and tested negative for Covid twice here. She was treated with oral prednisone for COPD exacerbation, was started on Unasyn and eventually transitioned to Augmentin prior to discharge. She was evaluated by [employer] and was found to be without overt signs of aspiration but it could not be ruled out. She was initially continued on a heparin drip on arrival to [facility] for her NSTEMI, Echo on 08/07/22 showed a LVEF of 65-70%, moderate LVH, and elevated RVSP. Her elevated troponin was thought to be due to demand ischemia and it down trended while admitted, her heparin drip was stopped on 08/07. She was found to be euvolemic on arrival to [facility] and was continued on her home Bumex, prn metolazone was added on discharge for weight gain. In the ED today the patient was found to be afebrile, hypertensive at 197/90, and stable on her baseline 2L NC. Her weight today was noted at 135 kg, up from 123 kg on the day of discharge (08/10/22). Labs were remarkable for WBC WNL, stable Hgb at 11.7. and stable platelets, bicarb of 42, stable renal function/electrolytes, alk phos of 129, high sensitivity troponin of 16.8. Chest xray shows "1. Cardiomegaly with mild pulmonary vascular congestion. 2. Bibasilar airspace opacities likely represent atelectasis, right significantly greater than left. Clinical correlation will be required. 3. Question a right pleural effusion." Prior to admission the patient was given 2g IV Ceftriaxone, 40 mg IV Lasix, 40 meq of PO KCL, and was placed on 2 inches of 2% nitroglycerine. At the time of the exam the patient was resting in bed in no acute distress, currently stable on her 2L NC. She states that since discharge on 08/10 she has had progressive SOB, non-productive cough, and an approximately 20 lb weight gain. She denies having increased sodium intake and states that she did not eat a thanksgiving meal due to sleeping most of the day. She has been using her bumex daily and used the 5mg PO metolazone the past 48 hours due to her weight gain without improvement. She uses a cane to ambulate and states that she has felt much more SOB with only taking a few steps while on her baseline 2-3L NC during the day. At night during the past two night she has felt more SOB on her AVAPS and had more anxiety because of it. She confirmed that she completed her course of Augmentin as prescribed on discharge. She denies recent fevers/chills, chest pain, abd pain, nausea, vomiting, diarrhea, dysuria, hematuria, and recent falls. She went to her PCP this am for discharge follow-up and was found to be hypertensive with systolics in the low 200's and hypoxic in the mid 80's on her baseline O2; because of this she was recommended to come to the ED. I spoke to her regarding code status, she is a Full Code. Please refer to Dr. Rosen's attestation for any changes to the treatment plan. Admission Exam Per Admitting Provider General:In no acute distress, stated age, morbidly obese, chronically ill- appearing HEENT:Normocephalic, atraumatic, no scleral icterus, pupils around round, symmetrical, and reactive to light, dry mucus membranes, +JVD, trachea midline, no thyromegaly Chest/Pulm:No respiratory distress, symmetrical chest expansion, distant breath sounds, decreased breath sounds in the BL lower lung garcia with R < L, expiratory wheezing noted in all other lung garcia Cardiac: Distant hear sounds,RRR, no murmurs noted Abdomen:Negative for ascites and bruising, normoactive bowel sounds, soft, non-tender to palpation throughout Musculoskeletal:Symmetrical and without signs of acute trauma, upper and lower extremities with full ROM, no atrophy, spasticity, or flaccidity Extremities:Radial, dorsalis pedis, and posterior tibial pulses are intact and symmetrical, 2+ pitting edema Skin: Patient with erythema and swelling of the LLE consistent with possible cellulitis, no erythema on the RLE Neuro:Alert and oriented to person, place, month, year, and president, no focal defects, CN II-XII tested and intact, baseline resting tremor noted Psych:No acute distress, calm and cooperative during the exam Principal Diagnosis Persistent small bowel obstruction Discharge Exam General: Morbidly obese woman in no acute distress. Neck: Significant neck girth. No lymphadenopathy. Normal ROM. CV: Regular rate and rhythm. Normal S1 and S2. No murmurs gallops or rubs. Respiratory: Unable to properly auscultate in posterior lung garcia due to patient's body habitus. Abdomen: Distended abdomen. Mild-moderately tender to palpation in RUQ, LUQ, epigastric. No guarding or rebound. Extremities: Capillary refill <2 sec. 2+ dp equal bilaterally. No pedal edema. Neuro: Alert and oriented x3. Resting tremor of the right upper extremity. Skin: Clean, dry, and intact. Some sacral decubitus dermatitis. No ulcers. Discharge Data Allergies Allergy/AdvReac Type Severity Reaction Status Date / Time bupropion Allergy Unknown Hives Verified 08/24/22 09:19 Sulfa (Sulfonamide Allergy Unknown Hives Verified 08/24/22 09:19 Antibiotics) Consultations 08/24/22 12:20 ED Decision to Admit Stat 08/25/22 07:34 [facility] CHF Program Referral Routine 08/27/22 08:44 Consult General Surgery Routine 08/27/22 09:10 Consult Cardiology Routine Ordered Studies 08/24/22 13:13 US venous doppler LE LT Urgent 08/26/22 17:54 CT Abd and Pelvis [CT abd pelvis IV con only] Urgent 08/27/22 CT Abd and Pelvis [CT abd pelvis oral and IV con] Routine Hospital Course (1) SBO (small bowel obstruction): -Developed abdominal pain 08/26 with associated nausea/vomiting. -No acute abdomen. -CT abdomen and pelvis with IV contrast ordered; shows Meckel's diverticulum with adhesions resulting in small bowel obstruction. Confirmed with CTAP with PO and IV contrast. -NGT placed with improvement in symptoms, continue. -General Surgery consulted and appreciate recommendations: If requires surgery due to medical comorbidities and morbid obesity will likely need transfer to tertiary center. - Medically stable with NGT. Plan was to try conservative measures through the weekend and discuss with [facility] Kristin if no resolution/improvement re: surgical management. - Patient is stable. No concern for acute abdomen, however patient's condition has failed to improve for 5 days, exhausting conservative strategy. - [facility] surgery still recommending transfer to tertiary facility for surgery d/t body habitus and complex medical history. -Zofran as needed for nausea, and morphine as needed for pain. (2) Acute and chronic respiratory failure: -Initial hypoxia with ambulation and increased SOB likely due to CHF exacerbation as she is volume overloaded with pulmonary edema on CXR. Dietary indiscretion at home contributory. -Pro-Arnol negative. Received ceftriaxone x1 dose in the ER, discontinued. -Patient negative for COVID, influenza, RSV. No evidence of COPD exacerbation on exam. -Was given 40 mg IV Lasix in the ED, will continue with 40 mg IV BID with strict intake and output, daily weights, holding home oral diuretics. -Admission weight of 135 kg>124.6kg today with -2400mL net balance. Patient has had several admissions and it is unclear what her dry weight is at this time. -Monitor on tele and pulse oximetry, prn breathing treatments, continue daytime O2 and HS AVAPS. -CHF program referral completed, will initiate Jardiance/spironolactone when no longer NPO for further optimization of heart failure regimen. Will have follow- up in heart failure clinic within 7 days of discharge. -Trend AM CBC and BMP. (3) Meckel's diverticulitis: see above (4) Erythema of lower extremity: -LLE noted to be erythematous and warm compared to RLE on admit, improving. -WBC count 11.09. -Left lower extremity venous Doppler negative for DVT. -Treated as cellulitis with cefazolin. Completed treatment today (08/30) for total of 7 days of antibiotic therapy. Significant improvement on exam. (5) Elevated troponin: -Initial HS troponin of 16.8 -> 15.6. No new EKG changes. No evidence of ACS. (6) Mixed hyperlipidemia: -Continue statin. (7) Hypertension: -Noted to be hypertensive with systolics in the low 200's on arrival to the ED. -BP normotensive. -Continue metoprolol IV and diuretics. (8) Severe obstructive sleep apnea: -See acute on chronic respiratory failure. (9) Chronic diastolic (congestive) heart failure: -Continue IV lasix. -Just had TTE on 08/07, will not repeat Echo at this time. (10) Diabetes type 2, uncontrolled: -NPO for now, decrease basal insulin. -Correction factor of 30 and carb ratio of 11. (11) Hypothyroidism: -Continue levothyroxine when not NPO. (12) Depression: -Continue Paxil and Buspar when not NPO. (13) Anxiety: -Klonopin switched to Valium IV prn given NPO. -See depression. (14) Acid reflux: -Continue pantoprazole IV. Plan Full code Heparin 5000 units every 8 hours NPO with NGT Telemetry given brisk diuresis and electrolyte monitoring, SBO Total Time Total Time Spent Total Time Spent (In Minutes): <30 Discharge Plan Discharge Items Patient Disposition: Transfer Acute Care Hospital Reason For Visit: ADMISSION Discharge Diagnosis: Persistent SBO Activity: Per Instructions section Non-emergency contact: Primary Care Provider and Surgeon Call non-emergency contact if: your symptoms worsen and your pain is not controlled Follow-up/Referrals: Barbara Deng DO [Primary Care Provider] - Charleen Zaidi PA-C [Physician Bander Hand] - 09/03/22 11:30 am (Congestive Heart Failure Program Appointment Information Early follow up is essential to managing your heart failure. An appointment has been scheduled for you with the [facility] Heart Failure Program within 7 days of discharge. Anticipate this visit to be 30-60 minutes long. Please expect a desizing machine operator head end phone call from one of our nurses approximately 48 hours from discharge. They will also be placing an order for lab work to be completed 1-2 days prior to your heart failure follow up appointment. Please be sure to have this done so we can go over the results when you come in. Office Location The cardiology office building is located in front of the hospital at [address] Bring the following with you to your follow-up doctor appointments: Please bring your daily weight log any discharge paperwork all of your medication bottles with you to this visit. ) Diet: Regular Addtl Attending Provider Instructions: (1) SBO (small bowel obstruction): -Developed abdominal pain with associated nausea/vomiting. -No acute abdomen. -CT abdomen and pelvis with IV contrast ordered; shows Meckel's diverticulum with adhesions resulting in small bowel obstruction. Confirmed with CTAP with PO and IV contrast. -Patient does have history of abdominal surgery ( with vertical incision, tubal ligation). -NGT placed, continue. -General Surgery consulted and appreciate recommendations: If requires surgery due to medical comorbidities and morbid obesity will likely need transfer to tertiary center. - Medically stable with NGT. Plan was to try conservative measures through the weekend and discuss with [facility] Kristin if no resolution/improvement re: surgical management. - Patient is stable. No concern for acute abdomen, however patient's condition has failed to improve for 5 days, exhausting conservative strategy. - [facility] surgery still recommending transfer to tertiary facility for surgery d/t body habitus and complex medical history. -Zofran as needed for nausea, and morphine as needed for pain. (2) Acute and chronic respiratory failure: -Initial hypoxia with ambulation and increased SOB likely due to CHF exacerbat ion as she is volume overloaded with pulmonary edema on CXR. Dietary indiscretion at home contributory. -Pro-Arnol negative. Received ceftriaxone x1 dose in the ER, discontinued. -Patient negative for COVID, influenza, RSV. No evidence of COPD exacerbation on exam. -Was given 40 mg IV Lasix in the ED, will continue with 40 mg IV BID with strict intake and output, daily weights, holding home oral diuretics. -Admission weight of 135 kg>124.6kg today with -2400mL net balance. Patient has had several admissions and it is unclear what her dry weight is at this time. -Monitor on tele and pulse oximetry, prn breathing treatments, continue daytime O2 and HS AVAPS. -CHF program referral completed, will initiate Jardiance/spironolactone when no longer NPO for further optimization of heart failure regimen. Will have follow- up in heart failure clinic within 7 days of discharge. -Trend AM CBC and BMP. (3) Meckel's diverticulitis: see above (4) Erythema of lower extremity: -LLE noted to be erythematous and warm compared to RLE on admit, improving. -WBC count 11.09. -Left lower extremity venous Doppler negative for DVT. -Treated as cellulitis with cefazolin. Completed treatment today (08/30) for total of 7 days of antibiotic therapy.Significant improvement on exam. (5) Elevated troponin: -Initial HS troponin of 16.8 -> 15.6. No new EKG changes. No evidence of ACS. (6) Mixed hyperlipidemia: -Continue statin. (7) Hypertension: -Noted to be hypertensive with systolics in the low 200's on arrival to the ED. -BP normotensive. -Continue metoprolol IV and diuretics. (8) Severe obstructive sleep apnea: -See acute on chronic respiratory failure. (9) Chronic diastolic (congestive) heart failure: -Continue IV lasix. -Just had TTE on 08/07, will not repeat Echo at this time. (10) Diabetes type 2, uncontrolled: -NPO for now, decrease basal insulin. -Correction factor of 30 and carb ratio of 11. (11) Hypothyroidism: -Continue levothyroxine when not NPO. (12) Depression: -Continue Paxil and Buspar when not NPO. (13) Anxiety: -Klonopin switched to Valium IV prn given NPO. -See depression. (14) Acid reflux: -Continue pantoprazole IV. Plan Full code Heparin 5000 units every 8 hours NPO with NGT Telemetry given brisk diuresis and electrolyte monitoring, SBO Pending Studies at Discharge: No Stand-Alone Forms: My [facility] Skilled Items Patient informed of condition?: Yes DNR: No Discharge Level of Care: Other Communicable Disease: No Discharge Prognosis: Stable Lines: None Urinary Catheter: Yes Medications and DC Order Prescriptions: Continued (DME) underpads [Bed Underpads] Pad See Rx Instructions .ROUTE .MEDSUPPLY Qty: 40 11RF Rx Instructions: As directed (DME) miscellaneous medical supply Misc See Dose Instructions .ROUTE .MEDSUPPLY Qty: 500 1RF Dose Instruction: As directed Rx Instructions: Chux Pads x 6 months ; DX: R32 (DME) OneTouch Ultra Test Strip See Rx Instructions .Route Qty: 500 1RF Rx Instructions: Test glucose QID DX CODE: E11.9 buspirone 15 mg tablet 15 mg PO TID Qty: 270 1RF budesonide 0.5 mg/2 mL suspension for nebulization 0.25 mg inhalation BID Qty: 120 5RF ascorbic acid (vitamin C) 500 mg tablet 500 mg PO BID Qty: 60 0RF Rx Instructions: CONFIRMED ON [facility] DC SUMMARY 01/05 aripiprazole 30 mg tablet 30 mg PO DAILY Label Comments: [facility]IRMED [facility] DC SUMMARY 01/05 ([facility]) insulin syringes (disposable) 1 mL syringe See Rx Instructions .ROUTE .MEDSUPPLY Qty: 500 1RF Rx Instructions: Test BS qid. Dx: E11.9 ([facility]) Bed Side Commode Misc See Rx Instructions .Route Qty: 1 0RF Rx Instructions: Bariatric Bedside Commode ([facility]) nebulizer accessories Kit See Rx Instructions .Route Qty: 1 12RF Rx Instructions: As directed ([facility]) nebulizers Misc See Rx Instructions .Route Qty: 1 0RF Rx Instructions: As directed ([facility]) Shower Chair Misc See Rx Instructions .Route Qty: 1 0RF Rx Instructions: As directed ipratropium-albuterol 0.5 mg-3 mg(2.5 mg base)/3 mL solution for nebulization 3 ml inhalation QID PRN (Reason: Shortness Of Breath Or Wheezing) Qty: 180 0RF (DME) OneTouch Ultra Test Strip See Rx Instructions .Route Qty: 100 2RF Rx Instructions: As directed; QID nystatin 100,000 unit/gram powder 1 applic topical TID PRN (Reason: yeast infection) Qty: 60 3RF docusate sodium 100 mg tablet 100 mg PO BID Qty: 60 0RF ([facility]) bariatric bath tub See Rx Instructions .Route .MEDSUPPLY Qty: 1 0RF Rx Instructions: As directed metoprolol succinate 50 mg tablet extended release 24 hr 50 mg PO DAILY Qty: 90 1RF ([facility]) stair lift See Rx Instructions .Route .MEDSUPPLY Qty: 1 0RF Rx Instructions: As directed ([facility]) transfer bench See Rx Instructions .Route .MEDSUPPLY Qty: 1 0RF Rx Instructions: As directed insulin lispro 100 unit/mL solution See Rx Instructions SQ QID Qty: 10 5RF Rx Instructions: 10 units SQ TID + prior to meal; BSg 0-110-0 units, 111-149 1 unit, 150-199 2 units, 200-249 3 units, 250-299 5 units, 300-349 6 units, 350-399 8 units, >400 call gabapentin 300 mg capsule 300 mg PO TID Qty: 90 2RF Rx Instructions: [facility]FIRMED [facility] DC SUMMARY 01/05 levothyroxine 125 mcg capsule 125 mcg PO DAILY Qty: 90 0RF Trelegy Ellipta 100-62.5-25 mcg blister with device 1 inh inhalation DAILY Qty: 60 2RF Rx Instructions: CONFIRMED [facility] DC SUMMARY 01/05 nystatin 100,000 unit/gram ointment 1 applic topical TID Qty: 30 3RF Rx Instructions: until healed cholecalciferol (vitamin D3) 25 mcg (1,000 unit) capsule 25 mcg PO DAILY Qty: 90 1RF Rx Instructions: [facility]FIRMED [facility] DC SUMMARY 01/05 pantoprazole 40 mg tablet,delayed release (DR/EC) 40 mg PO DAILY Qty: 90 1RF triamcinolone acetonide 0.025 % cream 1 applic topical DAILY PRN (Reason: rash) Qty: 80 0RF hydrocodone-acetaminophen 5-325 mg tablet 1 tab PO Q8H PRN (Reason: pain) Qty: 30 0RF ondansetron HCl [Zofran] 4 mg tablet 4 mg PO Q6H PRN (Reason: Nausea) clonazepam [Klonopin] 0.5 mg tablet See Rx Instructions .ROUTE .COMPLEX Rx Instructions: 1 tab BID PRN and 2 tabs at HS.; CONFIRMED [facility] DC SUMMARY 01/05 prazosin 1 mg capsule 3 mg PO QPM Rx Instructions: CONFIRMED [facility] DC SUMMARY 01/05 Lantus U-100 Insulin 100 unit/mL solution 15 unit SQ QPM Qty: 40 5RF Rx Instructions: CONFIRMED [facility] DC SUMMARY 4 atorvastatin 20 mg tablet 20 mg PO DAILY Qty: 90 3RF (DME) lancets [OneTouch Delica Lancets] 33 gauge misc See Rx Instructions .Route Qty: 500 1RF Rx Instructions: Test Glucose QID DX CODE: E11.9 bumetanide 1 mg tablet 3 mg PO DAILY Rx Instructions: Take 4 tablets by mouth every morning. (DME) miscellaneous medical supply Misc See Dose Instructions .ROUTE .MEDSUPPLY Qty: 1 3RF Dose Instruction: As directed Rx Instructions: Adult Incontinence Wipes 7 Tubs A Month x 6 Months (DME) Knee Support Brace [facility] See Rx Instructions .Route Qty: 1 0RF Rx Instructions: As directed diazepam 5 mg tablet 5 mg PO USEASDIRECTD Qty: 1 0RF Rx Instructions: 1 PO 30 MIN PRIOR TO PROCEDURE Trulicity 0.75 mg/0.5 mL pen injector 0.75 mg subcut Q7D Qty: 2 0RF prednisone 20 mg tablet 40 mg PO DAILY Qty: 14 0RF metolazone 5 mg tablet 5 mg PO DAILY Qty: 30 2RF Rx Instructions: Take 1 tablet daily one hour before bumetanide until body weight is at baseline, then take only as needed. paroxetine HCl 10 mg tablet 40 mg PO DAILY nystatin 100,000 unit/gram cream 1 applic topical DAILY Qty: 30 0RF benzonatate 100 mg capsule 100 mg PO TID PRN (Reason: cough) Qty: 20 0RF No Action cyclobenzaprine 10 mg tablet 10 mg PO BID PRN (Reason: muscle spasm) Qty: 60 1RF Discharge Orders: Discharge Order (Routine); Ordered 08/30/22 Ordered By: Tania Last Admission Data Admit Date/Time: 08/24/22 12:46 Attending Provider: Lee Contreras Admit Provider: Sergei Rosen Primary Care Provider: Barbara Deng Other Providers: Charleen Zaidi ; Osman Plata ; Angel Tejada ; Boris Iniguez Supervising Physician Co-Signing Physician Notes I personally examined the patient and verified all luna points of history and exam, discussed case, and agree with decision making with Dr Last Costa feels a little bit worse again - leaving for [facility] shortly. Vitals noted, in general she is awake and alert pleasant but appears a little bit uncomfortable. HEENT normocephalic atraumatic mucous membranes moist. Breathing unlabored no accessory muscle use good effort. Abdomen is soft but moderately distended moderate upper abdominal tenderness no guarding rebound or rigidity. Small bowel obstructionseveral days in, not improvingsymptoms a bit worse. No "red flags" for urgent surgery, but given her lack of progress, agree with general surgery that surgical intervention likely necessary. We have been asked by surgery to transfer her to a hospital with bariatric capabilities - for transfer momentarily OHSmetabolic alkalosis noted, probably partly contraction from diuresis, but also I do wonder if her device settings need to be adjusted. She follows regularly with sleep medicinewill need follow-up given that she was supposed to see them on DVT prophylaxisHeparin subcu otherwise as above, transfer to [facility] Resident Activity Tracking Resident Involvement: Resident Care Provided Care Provided: Adult Hospital Medicine
[2022-08-31] MEDS: METOPROLOL TARTRATE 1 MG/ML VIAL IV SCH ×2 (00:34→05:34)
[2022-08-31] MEDS: INSULIN ASPART PER UNIT SC SCH ×2 (01:09→06:40)
[2022-08-31] MEDS: MoRPHine SULFATE 4 MG/ML 1 ML CARP\\VIAL IV PRN ×2 (02:33→07:34)
[2022-08-31] MEDS: METOCLOPRAMIDE HCL INJ 5 MG/ML 2 ML VIAL IV PRN (02:40)
[2022-08-31] MEDS: HEPARIN SOD 5,000 UNIT/0.5 ML VIAL SQ SCH (05:34)
--- NOTE | 2022-08-31 08:24 | Medical Student Progress Note ---
Date of Service August 31, 2022 Assessment & Plan (1) SBO (small bowel obstruction): Plan: -Developed abdominal pain 08/26 with associated nausea/vomiting. -No acute abdomen. -CT abdomen and pelvis with IV contrast ordered; shows Meckel's diverticulum with adhesions resulting in small bowel obstruction. Confirmed with CTAP with PO and IV contrast. -NGT placed with improvement in symptoms, continue. -General Surgery consulted and appreciate recommendations: If requires surgery due to medical comorbidities and morbid obesity will likely need transfer to tertiary center. - Medically stable with NGT. Plan was to try conservative measures through the weekend and discuss with [facility] Kristin if no resolution/improvement re: surgical management. - Patient is stable. No concern for acute abdomen, however patient's condition has failed to improve for 5 days, exhausting conservative strategy. - [facility] surgery still recommending transfer to tertiary facility for surgery d/t body habitus and complex medical history. -Zofran as needed for nausea, and morphine as needed for pain. (2) Acute and chronic respiratory failure: Plan: -Initial hypoxia with ambulation and increased SOB likely due to CHF exacerbation as she is volume overloaded with pulmonary edema on CXR. Dietary indiscretion at home contributory. -Pro-Arnol negative. Received ceftriaxone x1 dose in the ER, discontinued. -Patient negative for COVID, influenza, RSV. No evidence of COPD exacerbation on exam. -Was given 40 mg IV Lasix in the ED, will continue with 40 mg IV BID with strict intake and output, daily weights, holding home oral diuretics. -Admission weight of 135 kg>124.6kg today with -2400mL net balance. Patient has had several admissions and it is unclear what her dry weight is at this time. -Monitor on tele and pulse oximetry, prn breathing treatments, continue daytime O2 and HS AVAPS. -CHF program referral completed, will initiate Jardiance/spironolactone when no longer NPO for further optimization of heart failure regimen. Will have follow- up in heart failure clinic within 7 days of discharge. -Trend AM CBC and BMP. (3) Meckel's diverticulitis: Plan: see above (4) Erythema of lower extremity: Plan: -LLE noted to be erythematous and warm compared to RLE on admit, improving. -WBC count 11.09. -Left lower extremity venous Doppler negative for DVT. -Treated as cellulitis with cefazolin. Completed treatment today (08/30) for total of 7 days of antibiotic therapy. Significant improvement on exam. (5) Elevated troponin: Plan: -Initial HS troponin of 16.8 -> 15.6. No new EKG changes. No evidence of ACS. (6) Mixed hyperlipidemia: Plan: -Continue statin. (7) Hypertension: Plan: -Noted to be hypertensive with systolics in the low 200's on arrival to the ED. -BP normotensive. -Continue metoprolol IV and diuretics. Hypertension type: essential hypertension Qualified Code(s): I10 - Essential (primary) hypertension (8) Severe obstructive sleep apnea: Plan: -See acute on chronic respiratory failure. (9) Chronic diastolic (congestive) heart failure: Plan: -Continue IV lasix. -Just had TTE on 08/07, will not repeat Echo at this time. (10) Diabetes type 2, uncontrolled: Plan: -NPO for now, decrease basal insulin. -Correction factor of 30 and carb ratio of 11. Glycemic state: with hyperglycemia Qualified Code(s): E11.65 - Type 2 diabetes mellitus with hyperglycemia (11) Hypothyroidism: Plan: -Continue levothyroxine when not NPO. Hypothyroidism type: acquired Qualified Code(s): E03.9 - Hypothyroidism, unspecified (12) Depression: Plan: -Continue Paxil and Buspar when not NPO. Depression Type: unspecified Qualified Code(s): F32.9 - Major depressive disorder, single episode, unspecified (13) Anxiety: Plan: -Klonopin switched to Valium IV prn given NPO. -See depression. (14) Acid reflux: Plan: -Continue pantoprazole IV. Esophagitis presence: without esophagitis Qualified Code(s): K21.9 - Gastro-esophageal reflux disease without esophagitis Plan Full code Heparin 5000 units every 8 hours NPO with NGT Telemetry given brisk diuresis and electrolyte monitoring, SBO Admission and Anticipated Discharge Date Admission Date: August 24, 2022 Ligia Slater is a 57 year old female with SBO. She reports Review of Systems Review of Systems: As noted in HPI. Results & Data ([facility]) Vital Signs (Past 12 Hours) Vital Signs Temp Pulse Pulse Resp BP BP BP 08/31/22 06:58 37.2 C 92 H 20 124/79 08/31/22 05:34 98 H 115/68 08/31/22 03:15 99 H 08/31/22 03:00 36.5 C 101 H 16 116/67 08/30/22 23:39 100 H 18 08/31/22 00:34 103 H 08/31/22 00:32 103 H 121/57 L 08/30/22 23:18 08/30/22 22:46 36.6 C 97 H 20 127/65 Pulse Ox O2 Del Method O2 Flow Rate 08/31/22 06:58 94 Nasal Cannula 08/31/22 05:34 08/31/22 03:15 08/31/22 03:00 96 BiPAP 08/30/22 23:39 92 2 08/31/22 00:34 08/31/22 00:32 08/30/22 23:18 Nasal Cannula 2 08/30/22 22:46 95 Nasal Cannula 2
[2022-08-31] MEDS: FUROSEMIDE 40 MG/4 ML VIAL IV SCH (09:16)
[2022-08-31] MEDS: UMECLIDINIUM/VILANTEROL 62.5/25MCG 7 PUFFS/INHALER INH SCH (09:16)
[2022-08-31] MEDS: FLUTICASONE FUROATE 100MCG 14 PUFFS/INHALER INH SCH (09:16)
[2022-08-31] MEDS: NYSTATIN POWDER 15GM BTL EXT SCH (09:17)
[2022-08-31] MEDS: LANTUS PER UNIT CHARGE SQ SCH (09:27)
[2022-08-31 13:12] LABS: BUN Creatinine Ratio 33.3 (10-20); Blood Urea Nitrogen 17 mg/dl (6-23); Carbon Dioxide > 45 mmol/L (21-32); Chloride 86 mmol/L (98-107); Creatinine Clr Calc Pharmacy 142.6 ml/min; Est GFR (Non-African American) 105.3 ml/min; Glucose 110 mg/dl (70-99(Fasting)); Potassium 3.1 mmol/L (3.5-5.1); Sodium 139 mmol/L (136-145)
--- NOTE | 2022-08-31 18:36 | Billing Data ---
Date of Service August 31, 2022 Coding Level of Care Code D/C DAY MANAGEMENT <30 MINS
== END 2022-08-31 11:08 | disposition short-term general hospital (02) | DRG 291 ==
LOC: ED 11:13 → SUATTDRO 12:46 → EDINP 12:46 → 2E 14:56
DX: Z68.43 Body mass index [BMI] 50.0-59.9, adult; F41.9 Anxiety disorder, unspecified; J96.12 Chronic respiratory failure with hypercapnia; I25.2 Old myocardial infarction; K21.9 Gastro-esophageal reflux disease without esophagitis; I50.33 Acute on chronic diastolic (congestive) heart failure; Z82.49 Family history of ischemic heart disease and other diseases of the circulatory system; Z83.3 Family history of diabetes mellitus; K56.50 Intestinal adhesions [bands], unspecified as to partial versus complete obstruction; Z86.19 Personal history of other infectious and parasitic diseases; Z88.8 Allergy status to other drugs, medicaments and biological substances; J44.9 Chronic obstructive pulmonary disease, unspecified; F32.A Depression, unspecified; Z79.52 Long term (current) use of systemic steroids; L03.116 Cellulitis of left lower limb; E55.9 Vitamin D deficiency, unspecified; R79.89 Other specified abnormal findings of blood chemistry; Z81.8 Family history of other mental and behavioral disorders; E87.3 Alkalosis; Z79.4 Long term (current) use of insulin; Z79.51 Long term (current) use of inhaled steroids; E66.2 Morbid (severe) obesity with alveolar hypoventilation; Z79.899 Other long term (current) drug therapy; Z87.09 Personal history of other diseases of the respiratory system; E03.9 Hypothyroidism, unspecified; E78.2 Mixed hyperlipidemia; Z79.890 Hormone replacement therapy; I08.0 Rheumatic disorders of both mitral and aortic valves; E11.65 Type 2 diabetes mellitus with hyperglycemia; Z86.16 Personal history of COVID-19; J96.21 Acute and chronic respiratory failure with hypoxia; Z88.2 Allergy status to sulfonamides; Q43.0 Meckel's diverticulum (displaced) (hypertrophic); Z20.822 Contact with and (suspected) exposure to COVID-19; Z87.891 Personal history of nicotine dependence; I11.0 Hypertensive heart disease with heart failure

== ENCOUNTER 2023-07-08 11:09 | Inpatient (IN) ==
--- NOTE | 2023-07-08 11:49 | Emergency Department Note ---
Impression & Plan Pneumonia, Acute exacerbation of chronic obstructive pulmonary disease, Acute on chronic respiratory acidosis, Hypoxia ED Provider Note NAME: CORDELIA REYES AGE: 58 SEX: F : 1965 ARRIVES VIA: Ambulance INFORMANT: Patient, EMS personnel ED PROVIDER(S): Caleb Kasper DO CHIEF COMPLAINT: difficulty breathing HPI: the patient is a 58-year-old female who has a history of COPD as well as CHF who presented to the emergency department with difficulty breathing. She went to see her family doctor today. She was found to be in respiratory distress. 911 was called. The patient states that she is been coughing. There is no reported fever. The patient's oxygen saturation was acceptable. She was placed on nasal cannula oxygen. She had an episode of tachycardia prior to arrival. It was unclear if this was secondary to the patient's shaking or possibly an underlying dysrhythmia. ROS: See above HPI for pertinent positives & negatives. A total of 10 systems reviewed and were otherwise negative. PAST MEDICAL HISTORY: See Below PAST SURGICAL HISTORY: See Below FAMILY HISTORY: See Below SOCIAL HISTORY: See Below HOME MEDICATIONS: See Below ALLERGIES: See Below VITALS: See Below PHYSICAL EXAMINATION: GENERAL: The patient is awake and alert. She is very anxious appearing. EYES: The conjunctivae are clear. The pupils are round and reactive. EARS, NOSE, MOUTH AND THROAT: The nose is without any evidence of any deformity. NECK: The neck is nontender and supple. RESPIRATORY: Diminished breath sounds are noted throughout. There was tachypnea as well as conversational dyspnea. CARDIOVASCULAR: Tachycardic and regular heart sounds were noted to auscultation. No definite murmur was noted. GASTROINTESTINAL: The abdomen is soft. Abdomen is nontender. MUSCULOSKELETAL/EXTREMITIES: There is no evidence of gross deformity full range of motion is noted in the hips and shoulders. SKIN: Pedal edema was noted bilaterally. Skin was cool and dry. NEUROLOGIC: Patient is awake alert and oriented x3 MEDICAL DECISION MAKING: The patient is a 58-year-old female who presented to the emergency department for an evaluation of difficulty breathing. The patient has a history of volume overload as well as COPD. History physical exam are consistent with severe respiratory distress. She was sent from her primary care physician's office. She had hypoxia prior to arrival. She was managed with psychologic. She received bronchodilators and steroids. Report was received from the prehospital personnel. The patient was further treated with IV antibiotics and IV fluids. She received medications blood pressure control as it was very elevated in the e mergency department. Given her presentation was difficult determine if this was from her COPD or possibly volume overload given her chest x-ray as well as her elevated blood pressure. She had cardiomegaly on chest x-ray. The patient ultimately continued to improve on the emergency department. Given her laboratory radiographic findings I [facility] agreed to evaluate the patient in the emergency department for further management and disposition. Triage Nursing notes reviewed. Prior medical records reviewed Vital Signs: reviewed and remarkable for Elevated blood pressure and hypoxia. Differential diagnosis: Reactive airway disease, pneumonia, pneumothorax, COPD, CHF, infections, cardiac ischemia, pulmonary embolism, musculoskeletal, gastrointestinal, as well as other pathologies. ER treatment provided: See below Diagnostics interpreted by me: ECG: EKG was obtained in the emergency department. My interpretation is sinus tachycardia 126 bpm. There is no ectopy. There is no acute ST segment abn ormalities noted. This was compared to a tracing from August 24, 2022. No changes were noted. Cardiac Monitoring: An order was placed for continuous cardiac monitoring. The monitor shows a rate of 101 bpm with sinus tachycardia. Laboratory studies: As stated above and show below. Imaging studies: See below. Radiographic imaging was reviewed by myself Consultation(s): I discussed this case with Dr. Cutler who [facility] He recommends that we order a CT angiography of the chest prior to his evaluation. ED COURSE: Procedures: none Critical Care: I have personally spent greater than 55 minutes of critical care time in the direct management of this patient. This includes bedside care, interpretation of diagnostic studies, and testing, discussion with consultants, patient, and family members, and other required patient management activities. This 55 minutes is in excess of all separately billable procedures. Past Med/Surg History Medical History Acid reflux Acne Acute and chronic respiratory failure Acute on chronic respiratory failure with hypoxia and hypercapnia Allergic rhinitis Anemia Anxiety Arthritis Cellulitis Chronic diastolic (congestive) heart failure Chronic obstructive pulmonary disease Chronic respiratory failure COVID-19 Depression Diabetes type 2, uncontrolled Elevated troponin Essential tremor Fatty liver H/O renal calculi H/O: iron deficiency anemia H/O: pneumonia Hearing difficulty Hepatic encephalopathy Hypertension Hypothyroidism Knee osteoarthritis Lung cancer Mass of lung Meckel's diverticulitis Obesity hypoventilation syndrome Personal history of COVID-19 PTSD (post-traumatic stress disorder) SBO (small bowel obstruction) Severe obstructive sleep apnea Urinary incontinence Vitamin D deficiency Surgical History H/O lithotripsy H/O prior ablation treatment H/O tympanostomy History of adenoidectomy History of tonsillectomy Previous section Status post tracheostomy (11/25/21) Family History Father Alcohol abuse Cardiac disorder Diabetes Gallbladder disease Hypertension Depression Mother Anxiety Depression Diabetes Hypertension Stroke Sister Breast cancer Depression Heart disease, congenital Rectal cancer Grandmother (Maternal) Lung disease Grandfather (Maternal) Heart disease Colorectal cancer Prostate cancer Denies family history of Ovarian cancer Myocardial infarction Social History Smoking Status: Former smoker Age Started Using Tobacco: 16; Age Quit Using Tobacco: 29; packs per day: 1; Second Hand Exposure: No; Do You Dip or Chew Tobacco: No; Hx Alcohol Use: No Hx Substance Use: No Preferred Language: Chadian Communication Ability: Effective Visual Impairment: Limited Hearing Ability: Hard of Hearing Respiratory Medicine Physician Required: No Beliefs That Will Affect Care: None marital status: Unknown Current Living Situation: Alone current occupational status: disabled Other Information That Helps Us Care for You: No Feels Safe at Home: Yes Safety Concerns: Feels Safe At This Time Childhood Exposure to Second-Hand Smoke: Yes Diet Comment: Tries to maintain healthy diet. caffeine: Yes (Tea x 2 cups a day.) during the past year weight has: decreased > 10 lbs Dental Care, Regularly: No Physical Activity Frequency: Does not Exercise Physical Activity Frequency Comment: Limited by physical condition Seatbelt Use: always Sunscreen Use: Yes Assistive Devices: Cane, Walker and Wheelchair Allergies Allergies Allergy/AdvReac Type Severity Reaction Status Date / Time bupropion Allergy Unknown Hives Verified 06/30/23 10:43 Sulfa (Sulfonamide Allergy Unknown Hives Verified 06/30/23 10:43 Antibiotics) Home Meds Home Medications Medication Instructions Recorded Confirmed aripiprazole 30 mg tablet 30 mg PO DAILY 01/12/22 07/08/23 paroxetine HCl 10 mg tablet 40 mg PO DAILY 01/12/22 07/08/23 prazosin 1 mg capsule 3 mg PO QPM 01/12/22 07/08/23 budesonide 0.5 mg/2 mL suspension 0.25 mg inhalation BID PRN Other 06/01/23 07/08/23 for nebulization bumetanide 1 mg tablet 2 mg PO DAILY 06/01/23 07/08/23 clonazepam 0.5 mg tablet (Klonopin) See Rx Instructions .Route .COMPLEX 06/01/23 07/08/23 metolazone 5 mg tablet 5 mg PO DAILY PRN Other 06/01/23 07/08/23 Previous Rx's Medication Instructions Recorded ascorbic acid (vitamin C) 500 mg 500 mg PO BID #60 tabs 01/05/22 tablet atorvastatin 20 mg tablet 20 mg PO DAILY #90 tabs 01/12/22 ipratropium 0.5 mg-albuterol 3 mg 3 ml inhalation QID PRN Shortness 03/10/22 (2.5 mg base)/3 mL nebulization Of Breath Or Wheezing #180 mL soln blood sugar diagnostic ([facility] #100 ea 03/26/22 Ultra Test strips) cholecalciferol (vitamin D3) 25 25 mcg PO DAILY #30 tabs 01/07/23 mcg (1,000 unit) tablet pantoprazole 40 mg tablet,delayed 40 mg PO DAILY #90 tabs 01/25/23 release insulin syringes (disposable) 1 mL #500 ea 01/27/23 lancets 33 gauge ([facility] Delica #500 ea 02/18/23 Lancets) cholecalciferol (vitamin D3) 50 50 mcg PO DAILY #28 tabs 02/22/23 mcg (2,000 unit) tablet gabapentin 300 mg capsule 300 mg PO TID #270 caps 02/22/23 levothyroxine 200 mcg tablet 200 mcg PO DAILY #28 tabs 02/22/23 fluticasone fur. 100 mcg-umeclid 1 inh inhalation DAILY #60 ea 03/09/23 62.5 mcg-vilant 25 mcg inhalat.powder (Trelegy Ellipta) cyclobenzaprine 10 mg tablet 10 mg PO BID PRN muscle spasm #60 03/31/23 tabs triamcinolone acetonide 0.025 % 1 applic topical DAILY PRN rash 03/31/23 topical cream #80 grams insulin glargine 100 unit/mL 13 unit (0.13 mL) subcut QPM #10 mL 04/20/23 subcutaneous solution (Lantus U-100 Insulin) insulin lispro 100 unit/mL See Rx Instructions subcut QID #10 04/20/23 subcutaneous solution mL blood sugar diagnostic (One[facility] #500 ea 06/06/23 Ultra Test strips) metoprolol succinate 25 mg 25 mg PO DAILY #90 tabs 06/06/23 tablet,extended release 24 hr dapagliflozin propanediol 10 mg 10 mg PO DAILY #90 tabs 06/22/23 tablet (Farxiga) nystatin 100,000 unit/gram topical 1 applic topical BID #180 grams 06/24/23 powder liraglutide 0.6 mg/0.1 mL (18 mg/3 1.8 mg (0.3 mL) subcut DAILY #9 mL 07/07/23 mL) subcutaneous pen injector (Victoza 3-Vargas) Results & Data (ED) Vital Signs Vital Signs - 24 hr 07/08/23 11:30 07/08/23 11:30 07/08/23 12:05 Temperature 38.4 C H Temperature Source Oral Pulse Rate 126 H Pulse Rate from SpO2 Sensor Respiratory Rate 16 Blood Pressure 225/112 H Blood Pressure Mean 149 Pulse Oximetry 95 96 Oxygen Delivery Method Nasal Cannula Room Air Nasal Cannula Oxygen Flow Rate 2 2 Sepsis Recent Fever Within 48 Hours No Sepsis New/Unexplained Change in Mental Status N/A Sepsis Action Taken by Nursing Physician Notified 07/08/23 12:31 07/08/23 14:43 07/08/23 15:14 Temperature Temperature Source Pulse Rate 125 H 117 H 112 H Pulse Rate from SpO2 Sensor Respiratory Rate Blood Pressure 225/112 H 191/105 H Blood Pressure Mean Pulse Oximetry Oxygen Delivery Method Oxygen Flow Rate Sepsis Recent Fever Within 48 Hours Sepsis New/Unexplained Change in Mental Status Sepsis Action Taken by Nursing 07/08/23 12:27 07/08/23 12:30 07/08/23 13:00 Temperature Temperature Source Pulse Rate 125 H 124 H 121 H Pulse Rate from SpO2 Sensor 125 H 125 H 122 H Respiratory Rate 23 17 18 Blood Pressure Blood Pressure Mean Pulse Oximetry 95 95 96 Oxygen Delivery Method Oxygen Flow Rate Sepsis Recent Fever Within 48 Hours Sepsis New/Unexplained Change in Mental Status Sepsis Action Taken by Nursing 07/08/23 13:16 07/08/23 13:16 07/08/23 13:30 Temperature Temperature Source Pulse Rate 126 H 119 H Pulse Rate from SpO2 Sensor 126 H 118 H Respiratory Rate 20 19 Blood Pressure 191/94 H Blood Pressure Mean 141 Pulse Oximetry 96 94 Oxygen Delivery Method Oxygen Flow Rate Sepsis Recent Fever Within 48 Hours Sepsis New/Unexplained Change in Mental Status Sepsis Action Taken by Nursing 07/08/23 14:02 07/08/23 14:30 07/08/23 14:44 Temperature Temperature Source Pulse Rate 86 118 H Pulse Rate from SpO2 Sensor Respiratory Rate 18 Blood Pressure 176/95 H Blood Pressure Mean 119 Pulse Oximetry Oxygen Delivery Method Oxygen Flow Rate Sepsis Recent Fever Within 48 Hours Sepsis New/Unexplained Change in Mental Status Sepsis Action Taken by Nursing 07/08/23 14:44 07/08/23 15:03 07/08/23 15:03 Temperature Temperature Source Pulse Rate 117 H 111 H Pulse Rate from SpO2 Sensor 112 H Respiratory Rate 17 13 Blood Pressure 191/105 H Blood Pressure Mean 121 Pulse Oximetry 95 Oxygen Delivery Method Oxygen Flow Rate Sepsis Recent Fever Within 48 Hours Sepsis New/Unexplained Change in Mental Status Sepsis Action Taken by [facility] Medications Current Medication List: was personally reviewed by me Laboratory Data Attestation: I reviewed the patient's lab results. 07/08/23 11:40 07/08/23 11:40 Lab Results 07/08/23 07/08/23 07/08/23 Range/Units 11:38 11:40 11:40 WBC 21.23 H (4.8-10.8) K/ul RBC 4.46 (4.20-5.40) M/uL Hgb 12.2 (12.0-16.0) g/dl Hct 39.4 (37.0-47.0) % MCV 88.3 (80.0-100.0) fL MCH 27.4 (25.0-34.0) pg MCHC 31.0 L (32.0-36.0) g/dL RDW Std Deviation 46.6 H (36.4-46.3) fL RDW Coeff of Carol 14.4 (11.5-14.5) % Plt Count 217 (130-400) K/uL MPV 11.2 (9.4-12.4) fL Immature Gran % (Auto) 0.4 % Neut % (Auto) 78.1 % Lymph % (Auto) 13.6 % [place] % (Auto) 6.8 % Eos % (Auto) 0.8 % Baso % (Auto) 0.3 % Neut # (Auto) 16.59 H (1.40-6.50) K/uL Lymph # (Auto) 2.89 (1.20-3.40) K/uL [place] # (Auto) 1.45 H (0.11-0.59) K/uL Eos # (Auto) 0.16 (0.00-0.50) K/uL Baso # (Auto) 0.06 (0.00-0.20) K/uL Immature Gran # (Auto) 0.08 (0.01-0.20) K/uL PT (9.0-12.0) Seconds INR (0.9-1.1) APTT (21.0-31.0) Seconds PTT Ratio VBG pH (7.36-7.41) VBG pCO2 (38-50) mmHg VBG pO2 mmHg VBG HCO3 mmol/L VBG O2 Saturation % VBG Base Excess mEq/L Sodium 139 (136-145) mmol/L Potassium 3.8 (3.5-5.1) mmol/L Chloride 97 L (98-107) mmol/L Carbon Dioxide 35 H (21-32) mmol/L Anion Gap 7 (3-11) BUN 12 (6-23) mg/dl Creatinine 0.54 L (0.6-1.2) mg/dl Est Cr Clr Drug Dosing 149.7 ml/min Est GFR ( Amer) 118.9 ml/min Est GFR (Non-Af Amer) 102.6 ml/min BUN/Creatinine Ratio 22.2 H (10-20) Glucose 124 H (70-99(Fasting)) mg/dl Lactate (0.4-2.0) mmol/L Calcium 9.8 (8.6-10.3) mg/dl Magnesium 1.6 L (1.7-2.4) mg/dl Total Bilirubin 0.8 (0.2-1.0) mg/dl Direct Bilirubin 0.2 (0-0.2) mg/dl AST 22 (13-39) U/L ALT 16 (7-52) U/L Alkaline Phosphatase 176 H (34-104) U/L Troponin I High Sens 8.3 (0-14) pg/ml B-Natriuretic Peptide (0-100) pg/ml Total Protein 7.8 (6.0-8.3) gm/dl Albumin 4.1 (3.4-5.0) gm/dl Procalcitonin (0-0.5) ng/ml Urine Color Yellow Urine Appearance Clear (Clear) Urine pH 7.0 (4.5-7.5) Ur Specific [place] 1.020 (1.000-1.030) Urine Protein Negative (Negative) Urine Glucose (UA) 1+ H (Negative) Urine Ketones Negative (Negative) Urine Blood Negative (Negative) Urine Nitrite Negative (Negative) Urine Bilirubin Negative (Negative) Urine Urobilinogen Negative (Negative) Ur Leukocyte Esterase Trace H (Negative) Urine WBC (Auto) 5-10 H (0-5) /hpf Urine RBC (Auto) 0-4 (0-4) /hpf U Hyaline Cast (Auto) 0 (0-5) /lpf U Epithel Cells (Auto) >30 H (0-5) /lpf Urine Bacteria (Auto) Negative (Negative) Adenovirus (PCR) (NotDetected) B. pertussis DNA (PCR) (NotDetected) B.parapertussis DNA PCR (NotDetected) C. pneumoniae DNA (PCR) (NotDetected) Coronavirus OC43 (PCR) (NotDetected) Coronavirus HKU1 (PCR) (NotDetected) Coronavirus 229E (PCR) (NotDetected) SARS-CoV-2 (PCR) (NotDetected) Coronavirus NL63 (PCR) (NotDetected) Human Metapneumovir PCR (NotDetected) Influenza Type A (PCR) (NotDetected) Influenza Type B (PCR) (NotDetected) M. pneumoniae (PCR) (NotDetected) Parainfluenza 1 (PCR) (NotDetected) Parainfluenza 2 (PCR) (NotDetected) Parainfluenza 3 (PCR) (NotDetected) Parainfluenza 4 (PCR) (NotDetected) RSV (PCR) (NotDetected) Entero/Rhino (PCR) (NotDetected) 07/08/23 07/08/23 07/08/23 Range/Units 11:40 11:40 11:40 WBC (4.8-10.8) K/ul RBC (4.20-5.40) M/uL Hgb (12.0-16.0) g/dl Hct (37.0-47.0) % MCV (80.0-100.0) fL MCH (25.0-34.0) pg MCHC (32.0-36.0) g/dL RDW Std Deviation (36.4-46.3) fL RDW Coeff of Carol (11.5-14.5) % Plt Count (130-400) K/uL MPV (9.4-12.4) fL Immature Gran % (Auto) % Neut % (Auto) % Lymph % (Auto) % [place] % (Auto) % Eos % (Auto) % Baso % (Auto) % Neut # (Auto) (1.40-6.50) K/uL Lymph # (Auto) (1.20-3.40) K/uL [place] # (Auto) (0.11-0.59) K/uL Eos # (Auto) (0.00-0.50) K/uL Baso # (Auto) (0.00-0.20) K/uL Immature Gran # (Auto) (0.01-0.20) K/uL PT 10.9 (9.0-12.0) Seconds INR 1.0 (0.9-1.1) APTT 28.9 (21.0-31.0) Seconds PTT Ratio 1.0 VBG pH (7.36-7.41) VBG pCO2 (38-50) mmHg VBG pO2 mmHg VBG HCO3 mmol/L VBG O2 Saturation % VBG Base Excess mEq/L Sodium (136-145) mmol/L Potassium (3.5-5.1) mmol/L Chloride (98-107) mmol/L Carbon Dioxide (21-32) mmol/L Anion Gap (3-11) BUN (6-23) mg/dl Creatinine (0.6-1.2) mg/dl Est Cr Clr Drug Dosing ml/min Est GFR ( Amer) ml/min Est GFR (Non-Af Amer) ml/min BUN/Creatinine Ratio (10-20) Glucose (70-99(Fasting)) mg/dl Lactate 3.3 H* (0.4-2.0) mmol/L Calcium (8.6-10.3) mg/dl Magnesium (1.7-2.4) mg/dl Total Bilirubin (0.2-1.0) mg/dl Direct Bilirubin (0-0.2) mg/dl AST (13-39) U/L ALT (7-52) U/L Alkaline Phosphatase (34-104) U/L Troponin I High Sens (0-14) pg/ml B-Natriuretic Peptide (0-100) pg/ml Total Protein (6.0-8.3) gm/dl Albumin (3.4-5.0) gm/dl Procalcitonin < 0.05 (0-0.5) ng/ml Urine Color Urine Appearance (Clear) Urine pH (4.5-7.5) Ur Specific [place] (1.000-1.030) Urine Protein (Negative) Urine Glucose (UA) (Negative) Urine Ketones (Negative) Urine Blood (Negative) Urine Nitrite (Negative) Urine Bilirubin (Negative) Urine Urobilinogen (Negative) Ur Leukocyte Esterase (Negative) Urine WBC (Auto) (0-5) /hpf Urine RBC (Auto) (0-4) /hpf U Hyaline Cast (Auto) (0-5) /lpf U Epithel Cells (Auto) (0-5) /lpf Urine Bacteria (Auto) (Negative) Adenovirus (PCR) (NotDetected) B. pertussis DNA (PCR) (NotDetected) B.parapertussis DNA PCR (NotDetected) C. pneumoniae DNA (PCR) (NotDetected) Coronavirus OC43 (PCR) (NotDetected) Coronavirus HKU1 (PCR) (NotDetected) Coronavirus 229E (PCR) (NotDetected) SARS-CoV-2 (PCR) (NotDetected) Coronavirus NL63 (PCR) (NotDetected) Human Metapneumovir PCR (NotDetected) Influenza Type A (PCR) (NotDetected) Influenza Type B (PCR) (NotDetected) M. pneumoniae (PCR) (NotDetected) Parainfluenza 1 (PCR) (NotDetected) Parainfluenza 2 (PCR) (NotDetected) Parainfluenza 3 (PCR) (NotDetected) Parainfluenza 4 (PCR) (NotDetected) RSV (PCR) (NotDetected) Entero/Rhino (PCR) (NotDetected) 07/08/23 07/08/23 07/08/23 Range/Units 11:40 12:19 14:43 WBC (4.8-10.8) K/ul RBC (4.20-5.40) M/uL Hgb (12.0-16.0) g/dl Hct (37.0-47.0) % MCV (80.0-100.0) fL MCH (25.0-34.0) pg MCHC (32.0-36.0) g/dL RDW Std Deviation (36.4-46.3) fL RDW Coeff of Carol (11.5-14.5) % Plt Count (130-400) K/uL MPV (9.4-12.4) fL Immature Gran % (Auto) % Neut % (Auto) % Lymph % (Auto) % [place] % (Auto) % Eos % (Auto) % Baso % (Auto) % Neut # (Auto) (1.40-6.50) K/uL Lymph # (Auto) (1.20-3.40) K/uL [place] # (Auto) (0.11-0.59) K/uL Eos # (Auto) (0.00-0.50) K/uL Baso # (Auto) (0.00-0.20) K/uL Immature Gran # (Auto) (0.01-0.20) K/uL PT (9.0-12.0) Seconds INR (0.9-1.1) APTT (21.0-31.0) Seconds PTT Ratio VBG pH 7.33 L (7.36-7.41) VBG pCO2 71 H (38-50) mmHg VBG pO2 34 mmHg VBG HCO3 37 mmol/L VBG O2 Saturation < 60.0 % VBG Base Excess 8.7 mEq/L Sodium (136-145) mmol/L Potassium (3.5-5.1) mmol/L Chloride (98-107) mmol/L Carbon Dioxide (21-32) mmol/L Anion Gap (3-11) BUN (6-23) mg/dl Creatinine (0.6-1.2) mg/dl Est Cr Clr Drug Dosing ml/min Est GFR ( Amer) ml/min Est GFR (Non-Af Amer) ml/min BUN/Creatinine Ratio (10-20) Glucose (70-99(Fasting)) mg/dl Lactate (0.4-2.0) mmol/L Calcium (8.6-10.3) mg/dl Magnesium (1.7-2.4) mg/dl Total Bilirubin (0.2-1.0) mg/dl Direct Bilirubin (0-0.2) mg/dl AST (13-39) U/L ALT (7-52) U/L Alkaline Phosphatase (34-104) U/L Troponin I High Sens (0-14) pg/ml B-Natriuretic Peptide 107 H (0-100) pg/ml Total Protein (6.0-8.3) gm/dl Albumin (3.4-5.0) gm/dl Procalcitonin (0-0.5) ng/ml Urine Color Urine Appearance (Clear) Urine pH (4.5-7.5) Ur Specific [place] (1.000-1.030) Urine Protein (Negative) Urine Glucose (UA) (Negative) Urine Ketones (Negative) Urine Blood (Negative) Urine Nitrite (Negative) Urine Bilirubin (Negative) Urine Urobilinogen (Negative) Ur Leukocyte Esterase (Negative) Urine WBC (Auto) (0-5) /hpf Urine RBC (Auto) (0-4) /hpf U Hyaline Cast (Auto) (0-5) /lpf U Epithel Cells (Auto) (0-5) /lpf Urine Bacteria (Auto) (Negative) Adenovirus (PCR) Not Detected (NotDetected) B. pertussis DNA (PCR) Not Detected (NotDetected) B.parapertussis DNA PCR Not Detected (NotDetected) C. pneumoniae DNA (PCR) Not Detected (NotDetected) Coronavirus OC43 (PCR) Not Detected (NotDetected) Coronavirus HKU1 (PCR) Not Detected (NotDetected) Coronavirus 229E (PCR) Not Detected (NotDetected) SARS-CoV-2 (PCR) Not Detected (NotDetected) Coronavirus NL63 (PCR) Not Detected (NotDetected) Human Metapneumovir PCR Not Detected (NotDetected) Influenza Type A (PCR) Not Detected (NotDetected) Influenza Type B (PCR) Not Detected (NotDetected) M. pneumoniae (PCR) Not Detected (NotDetected) Parainfluenza 1 (PCR) Not Detected (NotDetected) Parainfluenza 2 (PCR) Not Detected (NotDetected) Parainfluenza 3 (PCR) Not Detected (NotDetected) Parainfluenza 4 (PCR) Not Detected (NotDetected) RSV (PCR) Not Detected (NotDetected) Entero/Rhino (PCR) Not Detected (NotDetected) 07/08/23 Range/Units 14:43 WBC (4.8-10.8) K/ul RBC (4.20-5.40) M/uL Hgb (12.0-16.0) g/dl Hct (37.0-47.0) % MCV (80.0-100.0) fL MCH (25.0-34.0) pg MCHC (32.0-36.0) g/dL RDW Std Deviation (36.4-46.3) fL RDW Coeff of Carol (11.5-14.5) % Plt Count (130-400) K/uL MPV (9.4-12.4) fL Immature Gran % (Auto) % Neut % (Auto) % Lymph % (Auto) % [place] % (Auto) % Eos % (Auto) % Baso % (Auto) % Neut # (Auto) (1.40-6.50) K/uL Lymph # (Auto) (1.20-3.40) K/uL [place] # (Auto) (0.11-0.59) K/uL Eos # (Auto) (0.00-0.50) K/uL Baso # (Auto) (0.00-0.20) K/uL Immature Gran # (Auto) (0.01-0.20) K/uL PT (9.0-12.0) Seconds INR (0.9-1.1) APTT (21.0-31.0) Seconds PTT Ratio VBG pH (7.36-7.41) VBG pCO2 (38-50) mmHg VBG pO2 mmHg VBG HCO3 mmol/L VBG O2 Saturation % VBG Base Excess mEq/L Sodium (136-145) mmol/L Potassium (3.5-5.1) mmol/L Chloride (98-107) mmol/L Carbon Dioxide (21-32) mmol/L Anion Gap (3-11) BUN (6-23) mg/dl Creatinine (0.6-1.2) mg/dl Est Cr Clr Drug Dosing ml/min Est GFR ( Amer) ml/min Est GFR (Non-Af Amer) ml/min BUN/Creatinine Ratio (10-20) Glucose (70-99(Fasting)) mg/dl Lactate 3.1 H* (0.4-2.0) mmol/L Calcium (8.6-10.3) mg/dl Magnesium (1.7-2.4) mg/dl Total Bilirubin (0.2-1.0) mg/dl Direct Bilirubin (0-0.2) mg/dl AST (13-39) U/L ALT (7-52) U/L Alkaline Phosphatase (34-104) U/L Troponin I High Sens (0-14) pg/ml B-Natriuretic Peptide (0-100) pg/ml Total Protein (6.0-8.3) gm/dl Albumin (3.4-5.0) gm/dl Procalcitonin (0-0.5) ng/ml Urine Color Urine Appearance (Clear) Urine pH (4.5-7.5) Ur Specific [place] (1.000-1.030) Urine Protein (Negative) Urine Glucose (UA) (Negative) Urine Ketones (Negative) Urine Blood (Negative) Urine Nitrite (Negative) Urine Bilirubin (Negative) Urine Urobilinogen (Negative) Ur Leukocyte Esterase (Negative) Urine WBC (Auto) (0-5) /hpf Urine RBC (Auto) (0-4) /hpf U Hyaline Cast (Auto) (0-5) /lpf U Epithel Cells (Auto) (0-5) /lpf Urine Bacteria (Auto) (Negative) Adenovirus (PCR) (NotDetected) B. pertussis DNA (PCR) (NotDetected) B.parapertussis DNA PCR (NotDetected) C. pneumoniae DNA (PCR) (NotDetected) Coronavirus OC43 (PCR) (NotDetected) Coronavirus HKU1 (PCR) (NotDetected) Coronavirus 229E (PCR) (NotDetected) SARS-CoV-2 (PCR) (NotDetected) Coronavirus NL63 (PCR) (NotDetected) Human Metapneumovir PCR (NotDetected) Influenza Type A (PCR) (NotDetected) Influenza Type B (PCR) (NotDetected) M. pneumoniae (PCR) (NotDetected) Parainfluenza 1 (PCR) (NotDetected) Parainfluenza 2 (PCR) (NotDetected) Parainfluenza 3 (PCR) (NotDetected) Parainfluenza 4 (PCR) (NotDetected) RSV (PCR) (NotDetected) Entero/Rhino (PCR) (NotDetected) Administered Medications Acetaminophen (Acetaminophen 325 Mg Tab) 650 mg PO Q4H PRN PRN Reason: pain/fever Stop: 08/07/23 15:14 Last Admin: 07/08/23 16:33 Dose: 650 mg Documented By: CHARLENE Aripiprazole (Aripiprazole 15 Mg Tab) 30 mg PO DAILY [facility] Stop: 08/08/23 08:59 Last Admin: 07/09/23 09:05 Dose: 30 mg Documented By: NICK Atorvastatin Calcium (Atorvastatin 20 Mg Tab) 20 mg PO DAILY [facility] Stop: 08/08/23 08:59 Last Admin: 07/09/23 09:06 Dose: 20 mg Documented By: NICK Clonazepam (Clonazepam 0.5 Mg Tab) 0.5 mg PO BID PRN PRN Reason: anxiety, chronic use Stop: 08/07/23 17:46 Last Admin: 07/08/23 20:56 Dose: 0.5 mg Documented By: MELISSA Enoxaparin Sodium (Enoxaparin Inj 40 Mg/0.4 Ml Syr) 40 mg SQ Q12H [facility] Stop: 08/07/23 18:29 Last Admin: 07/09/23 06:08 Dose: 40 mg Documented By: Admin: 07/08/23 19:10 Dose: 40 mg Documented By: CHARLENE Fluticasone Furoate (Fluticasone Furoate 100mcg 14 Puffs/Inhaler) 1 puffs INH DAILY [facility] Stop: 08/08/23 08:59 Last Admin: 07/09/23 09:06 Dose: 1 puffs Documented By: NICK Gabapentin (Gabapentin 300 Mg Cap) 300 mg PO TID COLE Stop: 08/07/23 20:59 Last Admin: 07/09/23 09:08 Dose: 300 mg Documented By: Admin: 07/08/23 20:56 Dose: 300 mg Documented By: MELISSA Cefepime HCl 2,000 mg/ Syringe 20 mls @ 5 mls/min IV Q8H [facility]; Protocol Stop: 07/15/23 19:59 Last Admin: 07/09/23 04:08 Dose: 5 mls/min Documented By: Admin: 07/08/23 19:10 Dose: 5 mls/min Documented By: CHARLENE Methylprednisolone 40 mg/ (Syringe) 0.64 mls @ 1.5 mls/min IV Q8H [facility] Stop: 08/07/23 15:59 Last Admin: 07/09/23 09:04 Dose: 1.5 mls/min Documented By: Admin: 07/08/23 23:47 Dose: 1.5 mls/min Documented By: Admin: 07/08/23 16:25 Dose: 1.5 mls/min Documented By: CHARLENE Vancomycin HCl 1,000 mg/ (Sodium Chloride) 270 mls @ 200 mls/hr IV Q8H [facility] Stop: 07/16/23 03:59 Last Infusion: 07/09/23 05:41 Dose: 0 mls/hr Documented By: Admin: 07/09/23 04:08 Dose: 200 mls/hr Documented By: MELISSA Insulin Aspart (Insulin Aspart Per Unit Charge) 0 units SC ACHS COLE Stop: 08/07/23 16:29 Last Admin: 07/08/23 20:58 Dose: Not Given Documented By: MELISSA Co-signed By: CHARITY Admin: 07/08/23 19:08 Dose: 9 units Documented By: CHARLENE Co-signed By: CHRISTOPHER Insulin Glargine (Lantus Per Unit Charge) 17 units SC HS [facility] Stop: 08/07/23 20:59 Last Admin: 07/08/23 20:57 Dose: 17 units Documented By: MELISSA Co-signed By: CHARITY Levothyroxine Sodium (Levothyroxine Sodium 200 Mcg Tablet) 200 mcg PO DAILYBB [facility] Stop: 08/08/23 06:29 Last Admin: 07/09/23 06:08 Dose: 200 mcg Documented By: MELISSA Pantoprazole Sodium (Pantoprazole 40 Mg Tab) 40 mg PO DAILY COLE Stop: 08/08/23 08:59 Last Admin: 07/09/23 09:08 Dose: 40 mg Documented By: NICK Paroxetine HCl (Paroxetine Hcl 20 Mg Tab) 40 mg PO DAILY COLE Stop: 08/08/23 08:59 Last Admin: 07/09/23 09:08 Dose: 40 mg Documented By: NICK Prazosin HCl (Prazosin Hcl 1 Mg Cap) 3 mg PO QPM COLE Stop: 08/07/23 20:59 Last Admin: 07/08/23 20:56 Dose: 3 mg Documented By: MELISSA Umeclidinium/Vilanterol (Umeclidinium/Vilanterol 62.5/25mcg 7 Puffs/Inhaler) 1 puffs INH DAILY COLE Stop: 08/08/23 08:59 Last Admin: 07/09/23 09:09 Dose: 1 puffs Documented By: NICK Discontinued Medications Sodium Chloride (Nss) 500 mls @ 999 mls/hr IV .Q31M ONE Stop: 07/08/23 12:49 Last Infusion: 07/08/23 13:15 Dose: 0 mls/hr Documented By: Admin: 07/08/23 12:26 Dose: 999 mls/hr Documented By: CHARLENE Cefepime HCl (Maxipime) 2,000 mg in 20 mls @ 5 mls/min IV NOW STA; Protocol Stop: 07/08/23 12:22 Last Admin: 07/08/23 12:26 Dose: 5 mls/min Documented By: CHARLENE Magnesium Sulfate/Dextrose (Magnesium Sulfate / D5w) 1 gm in 100 mls @ 100 mls/hr IV NOW STA Stop: 07/08/23 14:02 Last Infusion: 07/08/23 16:39 Dose: 0 mls/hr Documented By: Admin: 07/08/23 14:39 Dose: 100 mls/hr Documented By: CHARLENE Parenteral Electrolytes (Plasma-Lyte A Ph 7.4) 500 mls @ 999 mls/hr IV .Q31M ONE Stop: 07/08/23 15:40 Last Infusion: 07/08/23 16:39 Dose: 0 mls/hr Documented By: Admin: 07/08/23 15:21 Dose: 999 mls/hr Documented By: CHARLENE Azithromycin 500 mg/ Dextrose 255 mls @ 125 mls/hr IV ONE ONE Stop: 07/08/23 17:34 Last Infusion: 07/08/23 20:33 Dose: 0 mls/hr Documented By: Admin: 07/08/23 16:25 Dose: 125 mls/hr Documented By: CHARLENE Vancomycin HCl 2,750 mg/ (Sodium Chloride) 555 mls @ 200 mls/hr IV NOW ONE Stop: 07/08/23 18:21 Last Admin: 07/08/23 17:42 Dose: 200 mls/hr Documented By: CHARLENE Parenteral Electrolytes (Plasma-Lyte A Ph 7.4) 2,000 mls @ 999 mls/hr IV .Q2H1M ONE Stop: 07/08/23 20:01 Last Infusion: 07/08/23 21:16 Dose: 0 mls/hr Documented By: Admin: 07/08/23 19:09 Dose: 999 mls/hr Documented By: CHARLENE Insulin Aspart (Insulin Aspart Per Unit Charge) 0 units SC 0000,0400 COLE Stop: 07/09/23 04:01 Last Admin: 07/09/23 04:08 Dose: 1 units Documented By: MELISSA Co-signed By: shellfish processing laborer: 07/09/23 00:07 Dose: 2 units Documented By: MELISSA Co-signed By: YVETTE Ioversol (Optiray 320 500ml) 114 ml IV ONCE ONE Stop: 07/08/23 15:33 Last Admin: 07/08/23 15:33 Dose: 114 ml Documented By: NIKA Labetalol HCl (Labetalol Hcl Iv 5 Mg/Ml 20ml) 10 mg IV NOW STA Stop: 07/08/23 13:48 Last Admin: 07/08/23 14:43 Dose: 10 mg Documented By: CHARLENE Co-signed By: AMOR Labetalol HCl (Labetalol Hcl Iv 5 Mg/Ml 20ml) 5 mg IV NOW STA Stop: 07/08/23 18:01 Last Admin: 07/08/23 19:18 Dose: 5 mg Documented By: CHARLENE Co-signed By: MELISSA Metoprolol Succinate (Metoprolol Succ 25mg Ext Rel Tab) 25 mg PO NOW STA Stop: 07/08/23 15:41 Last Admin: 07/08/23 16:25 Dose: 25 mg Documented By: CHARLENE Imaging Data Attestation: I personally reviewed and interpreted this imaging study as follows: My Impression: 1 view chest x-ray was obtained in the emergency department. Interpretation is cardiomegaly, no free air, final report below. CT of the chest was obtained in the emergency department. My interpretation is no free air, diffuse infiltrate, final report low. Radiologist's Impression: Chest X-Ray 07/08/23 11:18 SINGLE VIEW CHEST CLINICAL HISTORY: Sepsis. FINDINGS: An AP, portable, upright chest radiograph is compared to study dated 08/24/2022 and correlated with chest CT dated 08/07/2022. The examination is degraded by portable technique trauma large body habitus, and apical lordotic positioning. The heart is enlarged noting atherosclerotic calcification of the thoracic aorta. There is pulmonary vascular congestion. There is chronic elevation of the right hemidiaphragm with bibasilar scarring/atelectasis. No large pleural effusion or pneumothorax is seen. The skeletal structures are osteopenic. The bony thorax is grossly intact. Arthritic change is seen in the shoulders. IMPRESSION: 1. Cardiomegaly with mild pulmonary vascular congestion. 2. No airspace consolidation or large pleural effusion is identified. ACT 112: Negative or not required by law. Electronically signed by: Nikunj Alan M.D. 07/08/2023 11:54 AM Chest X-Ray 07/08/23 11:18 SINGLE VIEW CHEST CLINICAL HISTORY: Sepsis. FINDINGS: An AP, portable, upright chest radiograph is compared to study dated 08/24/2022 and correlated with chest CT dated 08/07/2022. The examination is degraded by portable technique trauma large body habitus, and apical lordotic positioning. The heart is enlarged noting atherosclerotic calcification of the thoracic aorta. There is pulmonary vascular congestion. There is chronic elevat ion of the right hemidiaphragm with bibasilar scarring/atelectasis. No large pleural effusion or pneumothorax is seen. The skeletal structures are osteopenic. The bony thorax is grossly intact. Arthritic change is seen in the shoulders. IMPRESSION: 1. Cardiomegaly with mild pulmonary vascular congestion. 2. No airspace consolidation or large pleural effusion is identified. ACT 112: Negative or not required by law. Electronically signed by: Nikunj Alan M.D. 07/08/2023 11:54 AM Chest CTA 07/08/23 15:06 CHEST CTA for PULMONARY ARTERIES CT DOSE: 829.62 mGy.cm HISTORY: Shortness of breath. TECHNIQUE: Multiaxial CT images of the chest were performed following the intravenous administration of contrast to evaluate the pulmonary arteries. 3D /Maximal intensity projection images were also obtained. Sagittal and coronal reformations were also reviewed. A dose lowering technique was utilized adhering to the principles of ALARA. COMPARISON STUDY: Chest CT 08/07/2022. FINDINGS: Limited views the upper abdomen demonstrate normal liver and spleen. Normal esophagus. The thyroid gland enhances normally. Mild body wall edema is noted. A single enlarged precarinal lymph node measuring 16 mm remains unchanged. The remaining mediastinal lymph nodes are subcentimeter in short axis diameter. The heart remains mildly enlarged. Calcified plaque within the normal caliber thoracic aorta. No evidence for an aortic dissection. No pleural or per icardial effusions identified. Mild respiratory motion artifact results in suboptimal evaluation of the pulmonary arteries. However, no definite filling defects within the pulmonary arteries to suggest a pulmonary embolus. Advanced degenerative changes within the right shoulder. No acute fractures identified. No pneumothorax. Partial consolidation of the right lower lobe persists with associated volume loss. Therefore, this favors atelectasis. A few of the distal right lower lobe bronchi are partially opacified. This could be due to mucous plugging or chronic bronchial occlusion. A superimposed pneumonia would be difficult to exclude. Patchy consolidation within the superior segment of the l eft lower lobe is new from the prior study and likely represents a pneumonia. This could be due to prior aspiration. IMPRESSION: 1. No evidence for a pulmonary embolus. 2. Stable cardiomegaly. 3. Consolidation within the superior segment left lower lobe is new compared the prior study and likely represents a pneumonia. This could be due to aspiration. 4. Chronic consolidation within the right lower lobe which favors partial atelectasis. A superimposed pneumonia would be difficult to exclude. 5. Additional findings as described above. ACT 112: Negative or not required by law. Electronically signed by: Riley Fong M.D. 07/08/2023 4:27 PM Discharge Plan Visit Data Chief Complaint: Shortness of Breath/Dyspnea Stated Complaint: SOB ED Provider: Caleb Kasper Discharge Problem: Pneumonia, Acute exacerbation of chronic obstructive pulmonary disease, Acute on chronic respiratory acidosis, Hypoxia Patient Disposition: Admitted As Inpatient Discharge Instructions Interventions: ED Discharge Assessment Last Done: 07/08/23 17:37
[2023-07-08 11:50] LABS: Appearance Urine Clear (Clear); Bacteria Urine Automated Negative (Negative); Bilirubin Urine Negative (Negative); Blood Urine Negative (Negative); Cast Urine Automated 0 /lpf (0-5); Color Urine Yellow; Epithelial Cell Urine Auto >30 /lpf (0-5); Glucose Urine UA 1+ (Negative); Ketones Urine Negative (Negative); Leukocyte Esterase Urine Trace (Negative); Nitrite Urine Negative (Negative); Protein Urine Negative (Negative); RBC Urine Automated 0-4 /hpf (0-4); Urobilinogen Urine Negative (Negative)
--- NOTE | 2023-07-08 11:56 | XRay Report ---
SINGLE VIEW CHEST CLINICAL HISTORY: Sepsis. FINDINGS: An AP, portable, upright chest radiograph is compared to study dated 08/24/2022 and correla kwame with chest CT dated 08/07/2022. The examination is degraded by portable technique trauma large shani dy habitus, and apical lordotic positioning. The heart is enlarged noting atherosclerotic calcificati on of the thoracic aorta. There is pulmonary vascular congestion. There is chronic elevation of the r ight hemidiaphragm with bibasilar scarring/atelectasis. No large pleural effusion or pneumothorax is seen. The skeletal structures are osteopenic. The bony thorax is grossly intact. Arthritic change is seen in the shoulders. IMPRESSION: 1. Cardiomegaly with mild pulmonary vascular congestion. 2. No airspace consolidation or large pleural effusion is identified. ACT 112: Negative or not required by law. Electronically signed by: Nikunj Alan M.D. 07/08/2023 11:54 AM
[2023-07-08 12:00] LABS: Base Excess VBG 8.7 mEq/L; HCO3 VBG 37 mmol/L; Oxygen Saturation VBG < 60.0 %; PCO2 VBG 71 mmHg (38-50); PO2 VBG 34 mmHg; pH VBG 7.33 (7.36-7.41)
[2023-07-08 12:07] LABS: Basophils # (auto) 0.06 K/uL (0.00-0.20); Basophils % (auto) 0.3 %; Eosinophils # (auto) 0.16 K/uL (0.00-0.50); Eosinophils % (auto) 0.8 %; Hematocrit (blood only) 39.4 % (37.0-47.0); Hemoglobin 12.2 g/dl (12.0-16.0); Immature Granulocytes # (auto) 0.08 K/uL (0.01-0.20); Immature Granulocytes % (auto) 0.4 %; Lymphocytes # (auto) 2.89 K/uL (1.20-3.40); Lymphocytes % (auto) 13.6 %; Mean Corpuscular Hemoglobin 27.4 pg (25.0-34.0); Mean Corpuscular Volume 88.3 fL (80.0-100.0); Mean Platelet Volume 11.2 fL (9.4-12.4); Monocytes # (auto) 1.45 K/uL (0.11-0.59); Monocytes % (auto) 6.8 %; Neutrophils # (auto) 16.59 K/uL (1.40-6.50); Neutrophils % (auto) 78.1 %; Platelet Count 217 K/uL (130-400); RDW Coefficient of Variation 14.4 % (11.5-14.5); RDW Standard Deviation 46.6 fL (36.4-46.3); Red Blood Count 4.46 M/uL (4.20-5.40); White Blood Count 21.23 K/ul (4.8-10.8)
[2023-07-08] MEDS ORDERED: CEFEPIME 2,000 MG/20 ML VIAL IV STA (12:19)
[2023-07-08] MEDS ORDERED: SODIUM CHLORIDE 0.9% 500 ML IV ONE (12:19)
[2023-07-08 12:37] LABS: Albumin Level 4.1 gm/dl (3.4-5.0); BUN Creatinine Ratio 22.2 (10-20); Bilirubin Direct 0.2 mg/dl (0-0.2); Bilirubin,Total 0.8 mg/dl (0.2-1.0); Calcium 9.8 mg/dl (8.6-10.3); Creatinine Clr Calc Pharmacy 149.7 ml/min; Est GFR (African American) 118.9 ml/min; Est GFR (Non-African American) 102.6 ml/min; Magnesium 1.6 mg/dl (1.7-2.4); Potassium 3.8 mmol/L (3.5-5.1); Total Protein 7.8 gm/dl (6.0-8.3)
[2023-07-08 12:42] LABS: Partial Thromboplastin Time 28.9 Seconds (21.0-31.0); Prothrombin Time 10.9 Seconds (9.0-12.0); Troponin I High Sensitivity 8.3 pg/ml (0-14)
[2023-07-08] MEDS ORDERED: MAGNESIUM SULFATE / D5W 1 GM/100 ML BAG IV STA (13:03)
[2023-07-08 13:19] LABS: Adenovirus PCR Not Detected (NotDetected); Bordetella parapertussis PCR Not Detected (NotDetected); Bordetella pertussis PCR Not Detected (NotDetected); Chlamydia pneumoniae PCR Not Detected (NotDetected); Coronavirus 229E PCR Not Detected (NotDetected); Coronavirus CoV-2 (COVID19)PCR Not Detected (NotDetected); Coronavirus HKU1 PCR Not Detected (NotDetected); Coronavirus NL63 PCR Not Detected (NotDetected); Coronavirus OC43PCR Not Detected (NotDetected); Human Metapneumovirus PCR Not Detected (NotDetected); Influenza A PCR Not Detected (NotDetected); Influenza B PCR Not Detected (NotDetected); Mycoplasma pneumoniae PCR Not Detected (NotDetected); Parainfluenza Virus 1 PCR Not Detected (NotDetected); Parainfluenza Virus 2 PCR Not Detected (NotDetected); Parainfluenza Virus 3 PCR Not Detected (NotDetected); Parainfluenza Virus 4 PCR Not Detected (NotDetected); Respiratory Syncytial VirusPCR Not Detected (NotDetected); Rhinovirus/Enterovirus PCR Not Detected (NotDetected)
[2023-07-08] MEDS ORDERED: LABETALOL HCL IV 5 MG/ML 20ML IV STA ×2 (13:47→18:00)
[2023-07-08] MEDS ORDERED: PLASMA-LYTE A 500 ML IV ONE (15:10)
--- NOTE | 2023-07-08 15:12 | History & Physical Report ---
Date of Service July 08, 2023 Assessment & Plan (1) Sepsis: Plan: Sepsis, suspect pulmonary source/pneumonia With 2 days of fever and chills, 4 to 5 days of increased wheezing and cough With leukocytosis, tachycardia, fever. Patient is hypertensive on admission. Lactate is elevated 3.3, downtrending to 3.1 Chest x-ray does not show any pulmonary edema/pleural effusions. BUN/creatinine ratio is contracted Patient does have history of heart failure, however as elevated lactate with fever/chills and is below her normal dry weight. Clinically does not show signs of overload and appears volume depleted. Fenton body weight 57 kg, patient's actual body weight 125 kg. 30 cc/kg of ideal body weight would be 1710 cc. Patient is pending additional 1 L of crystalloid bolus to make a total of 1500 cc since ER admission at time of hospitalist evaluation. Full 30 cc. Evaluate deferred due to history of CHF, will continue to rebolus as clinically indicated and hold once lactate normalizes or if oxygen saturation begins to decline Based on symptoms suspect pulmonary source. Continue cefepime, azithromycin, vancomycin due to severe illness/sepsis CTA is pending. Patient does have history of MRSA positive nares. Fredi is included as noted. Daptomycin not able to be used due to suspected pulmonary source. Linezolid poor choice due to SSRI use and patient having an underlying myoclonic tremor and fever complicating observation for serotonin syndrome Blood cultures pending Sputum culture ordered MRSA repeat pending (2) (HFpEF) heart failure with preserved ejection fraction: Plan: Patient is below dry weight, no signs of overload on admission. Continue home medications, follow closely for signs of developing volume overload with crystalloid repletion Patient denies chest pain/chest pressure (3) Severe obstructive sleep apnea: Plan: Patient may use her own AVAPS, or BiPAP nightly (4) Diabetes type 2, uncontrolled: Plan: Weight-based sliding scale. Goal BSG 1 [id number]. Pharmacy consulted due to concurrent steroid use (5) Chronic obstructive pulmonary disease: Plan: With acute exacerbation Continue inhalers Pulmonary toilet Antibiotics as noted Due to severe wheezing will treat superimposed COPD exacerbation with methylprednisolone 40 mg 3 times daily. Pharmacy consulted for assistance with glycemic management while on steroids (6) Chronic diastolic (congestive) heart failure: Plan DVT prophylaxis: Lovenox Disposition: PCU for IV antihypertensives as needed CODE STATUS: Full code Diet: Heart healthy/DM2 History of Present Illness Primary Care Provider: Barbara Deng DO Marianne is a 58-year-old female with past medical history of CHF, COPD who presented for dyspnea and respiratory distress. She is tachycardic, requiring nasal cannula, and hypertensive and febrile on ER evaluation.CXR: Cardiomegaly with pulmonary vascular congestion, no airspace consolidation or large pleural effusion are noted.Cefepime ordered empirically in ER. Patient received 500 cc of saline for possible pneumonia, aggressive fluids deferred due to history of CHF. Patient was hypertensive and received 10 mg of IV labetalol Patient seen at the bedside. She reports she has had fevers and shaking chills for 2 days. She has also had increased wheezing which started around 4 to 5 days ago. She has a history of heart failure with leg swelling. She has not had any orthopnea in the past few days, and does not feel like her legs are swollen. She is thirsty. She reports she is short of breath more than normal of the time this is not worsened by laying flat. She has been coughing but has not had a changes sputum production, occasional white sputum is produced with her cough. She does not have any abdominal pain, denies nausea/vomiting/diarrhea/constipation. She denies skin injuries and limb pain, no areas of cellulitis to her knowledge she reports she is not taking medications last night or this morning due to feeling poorly. She is on AVAPS at night normally, is not sure if this helps with her breathing, normally she reports this works but has not made much of a difference in the last few days Medical History: Reviewed Medications: Reviewed Surgical History: Reviewed Family history: Reviewed Allergies: Reviewed Social History: Reviewed Code Status: Full code Allergies Allergy/AdvReac Type Severity Reaction Status Date / Time bupropion Allergy Unknown Hives Verified 06/30/23 10:43 Sulfa (Sulfonamide Allergy Unknown Hives Verified 06/30/23 10:43 Antibiotics) Home Medications Medication Instructions Recorded Confirmed Type ascorbic acid (vitamin C) 500 mg 500 mg PO BID #60 tabs 01/05/22 07/08/23 Rx tablet aripiprazole 30 mg tablet 30 mg PO DAILY 01/12/22 07/08/23 History atorvastatin 20 mg tablet 20 mg PO DAILY #90 tabs 01/12/22 07/08/23 Rx paroxetine HCl 10 mg tablet 40 mg PO DAILY 01/12/22 07/08/23 History prazosin 1 mg capsule 3 mg PO QPM 01/12/22 07/08/23 History ipratropium 0.5 mg-albuterol 3 mg 3 ml inhalation QID PRN Shortness 03/10/22 07/08/23 Rx (2.5 mg base)/3 mL nebulization Of Breath Or Wheezing #180 mL soln blood sugar diagnostic (soup.meuch #100 ea 03/26/22 07/08/23 Rx Ultra Test strips) cholecalciferol (vitamin D3) 25 25 mcg PO DAILY #30 tabs 01/07/23 07/08/23 Rx mcg (1,000 unit) tablet pantoprazole 40 mg tablet,delayed 40 mg PO DAILY #90 tabs 01/25/23 07/08/23 Rx release insulin syringes (disposable) 1 mL #500 ea 01/27/23 07/08/23 Rx lancets 33 gauge (soup.meuch Delica #500 ea 02/18/23 07/08/23 Rx Lancets) cholecalciferol (vitamin D3) 50 50 mcg PO DAILY #28 tabs 02/22/23 07/08/23 Rx mcg (2,000 unit) tablet gabapentin 300 mg capsule 300 mg PO TID #270 caps 02/22/23 07/08/23 Rx levothyroxine 200 mcg tablet 200 mcg PO DAILY #28 tabs 02/22/23 07/08/23 Rx fluticasone fur. 100 mcg-umeclid 1 inh inhalation DAILY #60 ea 03/09/23 07/08/23 Rx 62.5 mcg-vilant 25 mcg inhalat.powder (Trelegy Ellipta) cyclobenzaprine 10 mg tablet 10 mg PO BID PRN muscle spasm #60 03/31/23 07/08/23 Rx tabs triamcinolone acetonide 0.025 % 1 applic topical DAILY PRN rash 03/31/23 07/08/23 Rx topical cream #80 grams insulin glargine 100 unit/mL 13 unit (0.13 mL) subcut QPM #10 mL 04/20/23 07/08/23 Rx subcutaneous solution (Lantus U-100 Insulin) insulin lispro 100 unit/mL See Rx Instructions subcut QID #10 04/20/23 07/08/23 Rx subcutaneous solution mL budesonide 0.5 mg/2 mL suspension 0.25 mg inhalation BID PRN Other 06/01/23 07/08/23 History for nebulization bumetanide 1 mg tablet 2 mg PO DAILY 06/01/23 07/08/23 History clonazepam 0.5 mg tablet (Klonopin) See Rx Instructions .Route .COMPLEX 06/01/23 07/08/23 History metolazone 5 mg tablet 5 mg PO DAILY PRN Other 06/01/23 07/08/23 History blood sugar diagnostic (OneTouch #500 ea 06/06/23 07/08/23 Rx Ultra Test strips) metoprolol succinate 25 mg 25 mg PO DAILY #90 tabs 06/06/23 07/08/23 Rx tablet,extended release 24 hr dapagliflozin propanediol 10 mg 10 mg PO DAILY #90 tabs 06/22/23 07/08/23 Rx tablet (Farxiga) nystatin 100,000 unit/gram topical 1 applic topical BID #180 grams 06/24/23 07/08/23 Rx powder liraglutide 0.6 mg/0.1 mL (18 mg/3 1.8 mg (0.3 mL) subcut DAILY #9 mL 07/07/23 07/08/23 Rx mL) subcutaneous pen injector (Victoza 3-Vargas) Past Med/Surg History Medical History Acid reflux Acne Acute and chronic respiratory failure Acute on chronic respiratory failure with hypoxia and hypercapnia Allergic rhinitis Anemia Anxiety Arthritis Cellulitis Chronic diastolic (congestive) heart failure Chronic obstructive pulmonary disease Chronic respiratory failure COVID-19 Depression Diabetes type 2, uncontrolled Elevated troponin Essential tremor Fatty liver H/O renal calculi H/O: iron deficiency anemia H/O: pneumonia Hearing difficulty Hepatic encephalopathy Hypertension Hypothyroidism Knee osteoarthritis Lung cancer Mass of lung Meckel's diverticulitis Obesity hypoventilation syndrome Personal history of COVID-19 PTSD (post-traumatic stress disorder) SBO (small bowel obstruction) Severe obstructive sleep apnea Urinary incontinence Vitamin D deficiency Surgical History H/O lithotripsy H/O prior ablation treatment Uterine.2005 H/O tympanostomy History of adenoidectomy History of tonsillectomy Previous section Status post tracheostomy (11/25/21) Family History Father Alcohol abuse Cardiac disorder Diabetes Gallbladder disease Hypertension Depression Mother Anxiety Depression Diabetes Hypertension Stroke Sister Breast cancer Depression Heart disease, congenital Rectal cancer Grandmother (Maternal) Lung disease Grandfather (Maternal) Heart disease Colorectal cancer Prostate cancer Denies family history of Ovarian cancer Myocardial infarction Social History Smoking Status: Former smoker Age Started Using Tobacco: 16; Age Quit Using Tobacco: 29; packs per day: 1; Second Hand Exposure: No; Do You Dip or Chew Tobacco: No; Hx Alcohol Use: No Hx Substance Use: No Preferred Language: Dutch Communication Ability: Effective Visual Impairment: Limited Hearing Ability: Hard of Hearing [employer] Experience Strategy Required: No Beliefs That Will Affect Care: None marital status: Unknown Current Living Situation: Alone current occupational status: disabled Feels Safe at Home: Yes Childhood Exposure to Second-Hand Smoke: Yes Diet Comment: Tries to maintain healthy diet. caffeine: Yes (Tea x 2 cups a day.) during the past year weight has: decreased > 10 lbs Dental Care, Regularly: No Physical Activity Frequency: Does not Exercise Physical Activity Frequency Comment: Limited by physical condition Seatbelt Use: always Sunscreen Use: Yes Assistive Devices: Cane and Walker Physical Exam Physical Exam: General: A&Ox3. NAD. Cooperative. HEENT: Atraumatic, normocephalic. Pulm: Greatly diminished, difficult to appreciate due to habitus. Diffuse expiratory wheezing symmetrical chest rise. No increased work of breathing. No respiratory distress. Cardiac: Tachycardic, -mrg. Radial pulses intact and symmetrical. Abdominal: Nontender, nondistended, soft. BS present. Obese. Extremities: Warm, dry. No pitting edema is present on admission Results & Data Results & Data Vital Signs (Past 12 Hours) Vital Signs Temp Pulse Resp BP Pulse Ox O2 Del Method O2 Flow Rate 07/08/23 14:43 117 H 225/112 H 07/08/23 12:31 125 H 07/08/23 12:05 96 Nasal Cannula 2 07/08/23 11:30 Room Air 07/08/23 11:30 38.4 C H 126 H 16 225/112 H 95 Nasal Cannula 2 PG Care Time/CCT Total # of Minutes Spent Total Time Spent with Patient: Total time spent is greater than 50% in coordination of care (as documented) at patient's floor/unit and/or counseling patient: Coding Level of Care Code 94608 INT INP/OBS CARE 3/75MIN Diagnoses Sepsis A41.9 (HFpEF) heart failure with preserved ejection fraction I50.30 Severe obstructive sleep apnea G47.33 Diabetes type 2, uncontrolled E11.65 Glycemic state: with hyperglycemia Chronic obstructive pulmonary disease J44.9 COPD type: unspecified COPD Chronic diastolic (congestive) heart failure I50.32 (4) Diabetes type 2, uncontrolled Glycemic state: with hyperglycemia Qualified Code(s): E11.65 - Type 2 diabetes mellitus with hyperglycemia (5) Chronic obstructive pulmonary disease COPD type: unspecified COPD Qualified Code(s): J44.9 - Chronic obstructive pulmonary disease, unspecified
[2023-07-08] MEDS ORDERED: GLUCOSE 10 TAB/TUBE PO PRN (15:32)
[2023-07-08] MEDS ORDERED: CARBOHYDRATES FOR HYPOGLYCEMIA PO PRN (15:32)
[2023-07-08] MEDS ORDERED: GLUCAGON FOR INJ 1 MG VIAL SQ PRN (15:32)
[2023-07-08] MEDS ORDERED: PHARMACY GLYCEMIC MGMT CONSULT PRN (15:32)
[2023-07-08] MEDS ORDERED: AZITHROMYCIN 500 MG in DEXTROSE 5% 250 ML IV ONE (15:32)
[2023-07-08] MEDS ORDERED: OPTIRAY 320 500ml IV ONE (15:32)
[2023-07-08] MEDS ORDERED: VANCOMYCIN HCL 2,750 MG in SODIUM CHLORIDE 0.9% 500 ML IV ONE (15:32)
[2023-07-08] MEDS ORDERED: GLUCOSE 40% GEL 15 GM TUBE PO PRN (15:32)
[2023-07-08] MEDS ORDERED: DEXTROSE 50% 50 ML SYRINGE IV PRN (15:32)
[2023-07-08] MEDS ORDERED: VANCOMYCIN CONSULT ACTIVE PRN (15:32)
[2023-07-08] MEDS ORDERED: METOPROLOL SUCC 25MG EXT REL TAB PO STA (15:40)
[2023-07-08] MEDS ORDERED: VANCOMYCIN HCL 2,000 MG in SODIUM CHLORIDE 0.9% 500 ML IV SCH (15:45)
[2023-07-08] MEDS: methylPREDNISolone 40 MG in SYRINGE 0 ML IV SCH ×2 (16:25→23:47)
--- NOTE | 2023-07-08 16:29 | CT Scan Report ---
CHEST CTA for PULMONARY ARTERIES CT DOSE: 829.62 mGy.cm HISTORY: Shortness of breath. TECHNIQUE: Multiaxial CT images of the chest were performed following the intravenous administration of contrast to evaluate the pulmonary arteries. 3D/Maximal intensity projection images were also obta ined. Sagittal and coronal reformations were also reviewed. A dose lowering technique was utilized a dhering to the principles of ALARA. COMPARISON STUDY: Chest CT 08/07/2022. FINDINGS: Limited views the upper abdomen demonstrate normal liver and spleen. Normal esophagus. The thyroid gland enhances normally. Mild body wall edema is noted. A single enlarged precarinal lymph no de measuring 16 mm remains unchanged. The remaining mediastinal lymph nodes are subcentimeter in shor t axis diameter. The heart remains mildly enlarged. Calcified plaque within the normal caliber thorac ic aorta. No evidence for an aortic dissection. No pleural or pericardial effusions identified. Mild respiratory motion artifact results in suboptimal evaluation of the pulmonary arteries. However, no d efinite filling defects within the pulmonary arteries to suggest a pulmonary embolus. Advanced degene rative changes within the right shoulder. No acute fractures identified. No pneumothorax. Partial con solidation of the right lower lobe persists with associated volume loss. Therefore, this favors atele ctasis. A few of the distal right lower lobe bronchi are partially opacified. This could be due to mu cous plugging or chronic bronchial occlusion. A superimposed pneumonia would be difficult to exclude. Patchy consolidation within the superior segment of the left lower lobe is new from the prior study and likely represents a pneumonia. This could be due to prior aspiration. IMPRESSION: 1. No evidence for a pulmonary embolus. 2. Stable cardiomegaly. 3. Consolidation within the superior segment left lower lobe is new compared the prior study and like ly represents a pneumonia. This could be due to aspiration. 4. Chronic consolidation within the right lower lobe which favors partial atelectasis. A superimposed pneumonia would be difficult to exclude. 5. Additional findings as described above. ACT 112: Negative or not required by law. Electronically signed by: Riley Fong M.D. 07/08/2023 4:27 PM
[2023-07-08] MEDS: ACETAMINOPHEN 325 MG TAB PO PRN (16:33)
[2023-07-08] MEDS ORDERED: BUDESONIDE 0.5 MG/2 ML VIAL (PULMICORT) INH PRN (17:47)
[2023-07-08] MEDS ORDERED: PLASMA-LYTE A 2,000 ML IV ONE (18:01)
[2023-07-08] MEDS: INSULIN ASPART PER UNIT CHARGE SC SCH ×2 (19:08→20:58)
[2023-07-08] MEDS: CEFEPIME 2,000 MG in SYRINGE 0 ML IV SCH (19:10)
[2023-07-08] MEDS: ENOXAPARIN INJ 40 MG/0.4 ML SYR SQ SCH (19:10)
[2023-07-08] MEDS: PRAZOSIN HCL 1 MG CAP PO SCH (20:56)
[2023-07-08] MEDS: clonazePAM 0.5 MG TAB PO PRN (20:56)
[2023-07-08] MEDS: GABAPENTIN 300 MG CAP PO SCH (20:56)
[2023-07-08] MEDS: LANTUS PER UNIT CHARGE SC SCH (20:57)
[2023-07-08] MEDS ORDERED: LANTUS PER UNIT CHARGE SQ SCH (21:00)
[2023-07-09] MEDS: INSULIN ASPART PER UNIT CHARGE SC SCH ×6 (00:07→21:08)
[2023-07-09] MEDS: VANCOMYCIN HCL 1,000 MG in SODIUM CHLORIDE 0.9% 250 ML IV SCH ×3 (04:08→19:30)
[2023-07-09] MEDS: CEFEPIME 2,000 MG in SYRINGE 0 ML IV SCH ×3 (04:08→19:30)
[2023-07-09 05:26] LABS: Hematocrit (blood only) 36.9 % (37.0-47.0); Hemoglobin 11.5 g/dl (12.0-16.0); Mean Corpuscular Hemoglobin 27.6 pg (25.0-34.0); Mean Corpuscular Hgb Conc 31.2 g/dL (32.0-36.0); Mean Corpuscular Volume 88.7 fL (80.0-100.0); Mean Platelet Volume 12.2 fL (9.4-12.4); Platelet Count 219 K/uL (130-400); RDW Coefficient of Variation 14.6 % (11.5-14.5); RDW Standard Deviation 47.6 fL (36.4-46.3); Red Blood Count 4.16 M/uL (4.20-5.40); White Blood Count 20.13 K/ul (4.8-10.8)
[2023-07-09 05:37] LABS: BUN Creatinine Ratio 28.9 (10-20); Calcium 9.5 mg/dl (8.6-10.3); Creatinine Clr Calc Pharmacy 179.6 ml/min; Est GFR (African American) 126.2 ml/min; Est GFR (Non-African American) 108.9 ml/min; Potassium 4.3 mmol/L (3.5-5.1)
[2023-07-09 05:55] LABS: Basophils # (auto) 0.02 K/uL (0.00-0.20); Basophils % (auto) 0.1 %; Immature Granulocytes % (auto) 0.5 %; Lymphocytes # (auto) 1.25 K/uL (1.20-3.40); Lymphocytes % (auto) 6.2 %; Monocytes # (auto) 0.13 K/uL (0.11-0.59); Monocytes % (auto) 0.6 %; Neutrophils # (auto) 18.63 K/uL (1.40-6.50); Neutrophils % (auto) 92.6 %
[2023-07-09] MEDS: ENOXAPARIN INJ 40 MG/0.4 ML SYR SQ SCH ×2 (06:08→17:39)
[2023-07-09] MEDS: LEVOTHYROXINE SODIUM 200 MCG TABLET PO SCH (06:08)
[2023-07-09] MEDS ORDERED: NON-FORMULARY MEDICATION (Fluticasone-Umeclidin-Vilanter [Trelegy Ellipta] 100-62.5-25 mcg INH SCH (09:00)
[2023-07-09] MEDS: methylPREDNISolone 40 MG in SYRINGE 0 ML IV SCH ×3 (09:04→23:03)
[2023-07-09] MEDS: ARIPiprazole 15 MG TAB PO SCH (09:05)
[2023-07-09] MEDS: ATORVASTATIN 20 MG TAB PO SCH (09:06)
[2023-07-09] MEDS: FLUTICASONE FUROATE 100MCG 14 PUFFS/INHALER INH SCH (09:06)
[2023-07-09] MEDS: GABAPENTIN 300 MG CAP PO SCH ×3 (09:08→21:01)
[2023-07-09] MEDS: PARoxetine HCL 20 MG TAB PO SCH (09:08)
[2023-07-09] MEDS: PANTOprazole 40 MG TAB PO SCH (09:08)
[2023-07-09] MEDS: UMECLIDINIUM/VILANTEROL 62.5/25MCG 7 PUFFS/INHALER INH SCH (09:09)
--- NOTE | 2023-07-09 09:12 | Hospitalist Progress Note ---
Date of Service July 09, 2023 Assessment & Plan (1) Sepsis: Plan: Sepsis due to pneumonia CTA findings of consolidation within left lower lobe possibly aspiration pneumonia, chronic consolidation in right lower lobe favors atelectasis versus superimposed pneumonia Nasal MRSA swab positive Continue cefepime, azithromycin, vancomycin due to severe illness/sepsis, added metronidazole for additional aspiration coverage, hopefully plan to tailor down Blood cultures pending Sputum culture pending Ordered urinary Legionella antigen testing (2) (HFpEF) heart failure with preserved ejection fraction: Plan: Continue home medicationsLipitor, metoprolol Hold home bumetanide and as needed metolazone (3) Chronic obstructive pulmonary disease: Plan: With acute exacerbation Continue inhalers Pulmonary toilet Antibiotics as noted Due to severe wheezing will treat superimposed COPD exacerbation with methylpr ednisolone 40 mg 3 times daily. Pharmacy consulted for assistance with glycemic management while on steroids (4) Severe obstructive sleep apnea: Plan: Patient may use her own AVAPS, or BiPAP nightly (5) Diabetes type 2, uncontrolled: Plan: Weight-based sliding scale. Goal BSG 1 38251. Pharmacy consulted due to concurrent steroid use (6) Candidal intertrigo: Plan: Patient requested topical nystatin which is unavailable inpatient, will prescribe topical miconazole Plan DVT prophylaxis: Lovenox Disposition: PCU for IV antihypertensives as needed CODE STATUS: Full code Diet: Heart healthy/DM2 Admission and Anticipated Discharge Date Admission Date: July 08, 2023 Subjective Reports ongoing dyspnea and coughing, though improved from admission. Chest discomfort improved. Denies lightheadedness/dizziness. Request nystatin powder for her inguinal folds Review of Systems Review of Systems: Per subjective Physical Exam Physical Exam: General: Chronically ill-appearing, NAD, obese HEENT: NC in place Cardiovascular: RRR, positive systolic murmur, no R/G Pulmonary: Diminished breath sounds, no W/R/R Abdomen: Soft, NT/ND, no guarding Extremities: Moving all extremities, no pedal edema Integumentary: Erythema of inguinal fold Neurologic: AAOx3, no focal deficits Psychiatric: Appropriate mood/affect Results & Data Results & Data Vital Signs (Past 12 Hours) Vital Signs Pulse Resp BP Pulse Ox O2 Flow Rate 07/09/23 07:24 95 H 07/09/23 06:23 99 H 20 160/92 H 98 07/09/23 05:00 96 H 21 154/88 H 96 07/09/23 03:08 104 H 07/09/23 03:04 106 H 17 98 07/09/23 00:00 103 H 21 145/84 H 97 07/08/23 23:34 104 H 15 97 3 Laboratory Results Reviewed CBCnotable for leukocytosis of 20, hemoglobin down trended to 11.5 Reviewed BMP with hyperglycemia noted Lactate on 07/08 at 8 PM was 5.2, rechecked this a.m. and down trended to 0.9 Positive MRSA nasal Diagnostic Findings CTA 07/08: FINDINGS: Limited views the upper abdomen demonstrate normal liver and spleen. Normal esophagus. The thyroid gland enhances normally. Mild body wall edema is noted. A single enlarged precarinal lymph node measuring 16 mm remains unchanged. The remaining mediastinal lymph nodes are subcentimeter in short axis diameter. The heart remains mildly enlarged. Calcified plaque within the normal caliber thoracic aorta. No evidence for an aortic dissection. No pleural or pericardial effusions identified. Mild respiratory motion artifact results in suboptimal evaluation of the pulmonary arteries. However, no definite filling defects within the pulmonary arteries to suggest a pulmonary embolus. Advanced degenerative changes within the right shoulder. No acute fractures identified. No pneumothorax. Partial consolidation of the right lower lobe persists with associated volume loss. Therefore, this favors atelectasis. A few of the distal right lower lobe bronchi are partially opacified. This could be due to mucous plugging or chronic bronchial occlusion. A superimposed pneumonia would be difficult to exclude. Patchy consolidation within the superior segment of the left lower lobe is new from the prior study and likely represents a pneumonia. This could be due to prior aspiration. IMPRESSION: 1. No evidence for a pulmonary embolus. 2. Stable cardiomegaly. 3. Consolidation within the superior segment left lower lobe is new compared the prior study and likely represents a pneumonia. This could be due to aspiration. 4. Chronic consolidation within the right lower lobe which favors partial atelectasis. A superimposed pneumonia would be difficult to exclude. 5. Additional findings as described above. PG Care Time/CCT Total # of Minutes Spent Total Time Spent with Patient: Total time spent is greater than 50% in coordination of care (as documented) at patient's floor/unit and/or counseling patient: Coding Level of Care Code 29935 SUB INP/OBS CARE 3/50MIN Diagnoses Sepsis A41.9 (HFpEF) heart failure with preserved ejection fraction I50.30 Chronic obstructive pulmonary disease J44.9 COPD type: unspecified COPD Severe obstructive sleep apnea G47.33 Diabetes type 2, uncontrolled E11.65 Glycemic state: with hyperglycemia Candidal intertrigo B37.2 (3) Chronic obstructive pulmonary disease COPD type: unspecified COPD Qualified Code(s): J44.9 - Chronic obstructive pulmonary disease, unspecified (5) Diabetes type 2, uncontrolled Glycemic state: with hyperglycemia Qualified Code(s): E11.65 - Type 2 diabetes mellitus with hyperglycemia
[2023-07-09] MEDS: METOPROLOL SUCC 25MG EXT REL TAB PO SCH (10:06)
[2023-07-09] MEDS: AZITHROMYCIN 250 MG in DEXTROSE 5% 250 ML IV SCH (10:06)
--- NOTE | 2023-07-09 10:35 | Pharmacy Report ---
Pharmacy PK ABX Note - Date of Service July 09, 2023 - Assessment and Plan Assessment 58 year old F receiving VANCOMYCIN/CEFEPIME/AZITHROMYCIN for empiric treatment of sepsis with suspected pulmonary source. Pertinent microbiologic data includes: Positive MRSA swab, blood cultures + sputum culture pending. Tmax 38.4, leukocytosis. Procal <0.05 Plan Vancomycin * Loading dose: 2750 mg IV x 1 * Maintenance dose: 1000 mg IV every 8 hours * Regimen is predicted to achieve target AUC/KELLY of 400-600 mg/L.hr * Trough ordered for 07/10 @ 0330 Pharmacy will continue to follow and will adjust dose/frequency as necessary. Thank you. Pharmacy has transitioned to AUC monitoring for vancomycin. AUC/KELLY is the preferred PK/PD target and is associated with decreased risk of nephrotoxicity compared to traditional trough targets.
[2023-07-09] MEDS: ACETAMINOPHEN 325 MG TAB PO PRN ×2 (10:41→18:18)
[2023-07-09] MEDS: metroNIDAZOLE 500 MG/100 ML BAG IV SCH ×2 (12:08→16:39)
--- NOTE | 2023-07-09 15:09 | Pharmacy Report ---
Pharmacy Glycemic Short Note 2 - Date of Service July 09, 2023 - Glycemic Short BSG Results (Last 24 hours): 07/08/23 07/08/23 07/08/23 18:44 20:55 23:41 Glucose POC Glucose 182 H 196 H 163 H 07/09/23 07/09/23 07/09/23 04:03 04:11 07:38 Glucose 166 H POC Glucose 157 H 155 H 07/09/23 12:50 Glucose POC Glucose 180 H OUTPATIENT ANTIDIABETIC REGIMEN: * Farxiga 10 mg PO daily * Lantus 13 units SQ QPM * Humalog SSI * Victoza 1.8 mg SQ daily ASSESSMENT: * 58 y/o F admitted for Pneumonia and Sepsis yesterday. She has history of Type 2 diabetes managed on basal and bolus insulins as well as oral Farxiga and SQ Victoza. HbA1c ordered for tomorrow. * Pharmacy consulted for glycemic management yesterday, * Patient was started on IV Solumedrol 40 mg Q8h last night. * Novolog was started with parameters based on stress of 3 and Lantus dose (based on stress between 2 and 3) last night. * BSGs have been fairly well controlled. Continue same dose of basal and Novolog parameters as yesterday. PLAN FOR INPATIENT GLYCEMIC CONTROL: * Hold outpatient oral and SQ diabetes medications * Basal insulin * Lantus 17 units SQ HS * Bolus insulin * NovoLog per scale ACHS or Q6hrs while NPO * Goal Range: Low 110 mg/dL - High 140 mg/dL * Correction Factor: 20 mg/dL/unit * Nutritional / Prandial insulin per carb ratio of 1 unit per 7 grams CHO consumed
[2023-07-09] MEDS ORDERED: MICONAZOLE NITRATE POWDER 85 GM EXT PRN (16:28)
[2023-07-09] MEDS: PRAZOSIN HCL 1 MG CAP PO SCH (21:01)
[2023-07-09] MEDS: LANTUS PER UNIT CHARGE SC SCH (21:08)
[2023-07-09] MEDS: clonazePAM 0.5 MG TAB PO PRN (21:09)
[2023-07-10] MEDS: metroNIDAZOLE 500 MG/100 ML BAG IV SCH ×3 (00:20→16:42)
[2023-07-10] MEDS ORDERED: VANCOMYCIN LEVEL ONE (03:30)
[2023-07-10 03:50] LABS: Basophils # (auto) 0.02 K/uL (0.00-0.20); Basophils % (auto) 0.1 %; Hematocrit (blood only) 35.4 % (37.0-47.0); Hemoglobin 11.2 g/dl (12.0-16.0); Immature Granulocytes # (auto) 0.12 K/uL (0.01-0.20); Immature Granulocytes % (auto) 0.7 %; Lymphocytes # (auto) 1.25 K/uL (1.20-3.40); Lymphocytes % (auto) 7.4 %; Mean Corpuscular Hemoglobin 27.9 pg (25.0-34.0); Mean Corpuscular Hgb Conc 31.6 g/dL (32.0-36.0); Mean Corpuscular Volume 88.1 fL (80.0-100.0); Mean Platelet Volume 11.7 fL (9.4-12.4); Monocytes # (auto) 0.36 K/uL (0.11-0.59); Monocytes % (auto) 2.1 %; Neutrophils # (auto) 15.17 K/uL (1.40-6.50); Neutrophils % (auto) 89.7 %; Platelet Count 209 K/uL (130-400); RDW Coefficient of Variation 14.5 % (11.5-14.5); RDW Standard Deviation 46.7 fL (36.4-46.3); Red Blood Count 4.02 M/uL (4.20-5.40); White Blood Count 16.92 K/ul (4.8-10.8)
[2023-07-10 03:58] LABS: Calcium 9.4 mg/dl (8.6-10.3); Creatinine Clr Calc Pharmacy 201.8 ml/min; Est GFR (African American) 131.2 ml/min; Est GFR (Non-African American) 113.2 ml/min; Potassium 4.7 mmol/L (3.5-5.1)
[2023-07-10] MEDS: CEFEPIME 2,000 MG in SYRINGE 0 ML IV SCH ×2 (04:15→12:23)
[2023-07-10] MEDS: VANCOMYCIN HCL 1,000 MG in SODIUM CHLORIDE 0.9% 250 ML IV SCH ×2 (04:47→12:23)
[2023-07-10] MEDS: LEVOTHYROXINE SODIUM 200 MCG TABLET PO SCH (06:08)
[2023-07-10] MEDS: ENOXAPARIN INJ 40 MG/0.4 ML SYR SQ SCH ×2 (06:08→17:46)
--- NOTE | 2023-07-10 07:05 | Electrocardiogram Report ---
Test Reason : Blood Pressure : / mmHG Vent. Rate : 126 BPM Atrial Rate : 126 BPM P-R Int : 164 ms QRS Dur : 068 ms QT Int : 280 ms P-R-T Axes : 073 015 064 degrees QTc Int : 405 ms Poor data quality, interpretation may be adversely affected Sinus tachycardia Otherwise normal ECG When compared with ECG of 24-AUG-2022 11:18, No significant change was found Confirmed by Kash Newton ([id number]) on 07/10/2023 7:05:47 AM Referred By: REFERRED SELF Confirmed By:Kash Newton
[2023-07-10] MEDS: INSULIN ASPART PER UNIT CHARGE SC SCH ×4 (08:25→20:32)
[2023-07-10] MEDS: PARoxetine HCL 20 MG TAB PO SCH (08:27)
[2023-07-10] MEDS: GABAPENTIN 300 MG CAP PO SCH ×3 (08:27→20:10)
[2023-07-10] MEDS: methylPREDNISolone 40 MG in SYRINGE 0 ML IV SCH ×2 (08:27→16:42)
[2023-07-10] MEDS: PANTOprazole 40 MG TAB PO SCH (08:27)
[2023-07-10] MEDS: METOPROLOL SUCC 25MG EXT REL TAB PO SCH (08:28)
[2023-07-10] MEDS: ATORVASTATIN 20 MG TAB PO SCH (08:28)
[2023-07-10] MEDS: ARIPiprazole 15 MG TAB PO SCH (08:28)
[2023-07-10] MEDS: FLUTICASONE FUROATE 100MCG 14 PUFFS/INHALER INH SCH (08:28)
[2023-07-10] MEDS: UMECLIDINIUM/VILANTEROL 62.5/25MCG 7 PUFFS/INHALER INH SCH (08:29)
[2023-07-10] MEDS: AZITHROMYCIN 250 MG in DEXTROSE 5% 250 ML IV SCH (08:32)
--- NOTE | 2023-07-10 08:55 | Hospitalist Progress Note ---
Date of Service July 10, 2023 Assessment & Plan (1) Sepsis: Plan: Sepsis due to pneumonia CTA findings of consolidation within left lower lobe possibly aspiration pneumonia, chronic consolidation in right lower lobe favors atelectasis versus superimposed pneumonia Nasal MRSA swab positive Abx: cefepime --> transitioned to ceftriaxone 07/10, azithromycin, and vancomycin, added metronidazole 07/09 for additional aspiration coverage --> will continue tailoring Blood cultures 07/08 NGTD Sputum culture 07/09 pinpoint growth at present Urinary Legionella antigen testing pending (2) (HFpEF) heart failure with preserved ejection fraction: Plan: Continue home medicationsLipitor, metoprolol Resumed home bumetanide and as needed metolazone (3) Chronic obstructive pulmonary disease: Plan: With acute exacerbation Continue inhalers Pulmonary toilet Antibiotics as noted Due to severe wheezing will treat superimposed COPD exacerbation with methylprednisolone 40 mg 3 times daily. Pharmacy consulted for assistance with glycemic management while on steroids (4) Severe obstructive sleep apnea: Plan: Patient may use her own AVAPS, or BiPAP nightly (5) Diabetes type 2, uncontrolled: Plan: Weight-based sliding scale. Goal BSG 1 12421. Pharmacy consulted due to concurrent steroid use (6) Candidal intertrigo: Plan: Patient requested topical nystatin which is unavailable inpatient, will prescribe topical miconazole Plan DVT prophylaxis: Lovenox CODE STATUS: Full code Diet: Heart healthy/DM2 Admission and Anticipated Discharge Date Admission Date: July 08, 2023 Subjective Reports ongoing chest heaviness, dyspnea, and coughing. Reports she is still above her baseline. Review of Systems Review of Systems: Per subjective Physical Exam Physical Exam: General: Chronically ill-appearing, NAD, obese HEENT: NC in place Cardiovascular: RRR, positive systolic murmur, no R/G Pulmonary: Diminished breath sounds, + wheezing Abdomen: Soft, NT/ND, no guarding Extremities: Moving all extremities, no pedal edema Integumentary: Erythema of inguinal fold Neurologic: AAOx3, no focal deficits Psychiatric: Appropriate mood/affect Results & Data Results & Data Vital Signs (Past 12 Hours) Vital Signs Temp Pulse Pulse Resp BP Pulse Ox Pulse Ox 07/10/23 08:24 36.3 C L 87 18 172/92 H 98 07/10/23 05:51 85 07/10/23 04:19 88 20 07/10/23 00:05 95 H 20 96 10/15/23 03:00 36.7 C 87 16 169/80 H 90 07/09/23 23:28 90 07/09/23 23:01 37.1 C 95 H 20 175/94 H 95 07/09/23 23:01 95 07/09/23 21:00 07/09/23 20:57 94 H 17 98 O2 Del Method O2 Del Method O2 Flow Rate 07/10/23 08:24 Nasal Cannula 2 07/10/23 05:51 07/10/23 04:19 3 07/10/23 00:05 3 07/10/23 03:00 Nasal Cannula 07/09/23 23:28 07/09/23 23:01 CPAP 07/09/23 23:01 CPAP 07/09/23 21:00 Nasal Cannula 3 07/09/23 20:57 3 Laboratory Results Reviewed labs including CBC, BMP, and Vanco troughnotable for improving leukocytosis, stable hemoglobin at 11.2, hyperglycemia Diagnostic Findings Sputum culture 07/09 pinpoint growth at present Blood cultures 07/08 NGTD PG Care Time/CCT Total # of Minutes Spent Total Time Spent with Patient: Total time spent is greater than 50% in coordination of care (as documented) at patient's floor/unit and/or counseling patient: Coding Level of Care Code 39599 SUB INP/OBS CARE MIN Diagnoses Sepsis A41.9 (HFpEF) heart failure with preserved ejection fraction I50.30 Chronic obstructive pulmonary disease J44.9 COPD type: unspecified COPD Severe obstructive sleep apnea G47.33 Diabetes type 2, uncontrolled E11.65 Glycemic state: with hyperglycemia Candidal intertrigo B37.2 (3) Chronic obstructive pulmonary disease COPD type: unspecified COPD Qualified Code(s): J44.9 - Chronic obstructive pulmonary disease, unspecified (5) Diabetes type 2, uncontrolled Glycemic state: with hyperglycemia Qualified Code(s): E11.65 - Type 2 diabetes mellitus with hyperglycemia
[2023-07-10] MEDS: ACETAMINOPHEN 325 MG TAB PO PRN ×2 (10:36→20:58)
[2023-07-10] MEDS: clonazePAM 0.5 MG TAB PO PRN ×2 (10:36→20:58)
[2023-07-10] MEDS: ALBUT/IPRATROP 3MG/0.5MG NEB 3 ML VIAL NEB PRN ×3 (10:42→20:50)
--- NOTE | 2023-07-10 12:34 | Pharmacy Report ---
Pharmacy PK ABX Note - Date of Service July 10, 2023 - Assessment and Plan Assessment 07/09: Blood cultures negative at 24 hours, sputum with pin-point growth reincubating. Leukocytosis improving. Level this morning predicts slightly subtherapeutic dosing, will increase dose. 58 year old F receiving VANCOMYCIN/CEFEPIME/AZITHROMYCIN for empiric treatment of sepsis with suspected pulmonary source. Pertinent microbiologic data includes: Positive MRSA swab, blood cultures + sputum culture pending. Tmax 38.4, leukocytosis. Procal <0.05 Plan Vancomycin * Change to 1250 mg IV every 8 hours * Regimen is predicted to achieve target AUC/KELLY of 400-600 mg/L.hr * Random ordered for 07/11 @ 1000 Pharmacy will continue to follow and will adjust dose/frequency as necessary. Thank you. Pharmacy has transitioned to AUC monitoring for vancomycin. AUC/KELLY is the preferred PK/PD target and is associated with decreased risk of nephrotoxicity compared to traditional trough targets.
[2023-07-10] MEDS: VANCOMYCIN HCL 1,250 MG in SODIUM CHLORIDE 0.9% 250 ML IV SCH ×2 (12:52→20:58)
[2023-07-10] MEDS ORDERED: metOLazone 5 MG TABLET PO PRN (17:34)
[2023-07-10] MEDS: cefTRIAXone SODIUM 2,000 MG in DEXTROSE 5 % MINI-B 50 ML IV SCH (20:10)
[2023-07-10] MEDS: PRAZOSIN HCL 1 MG CAP PO SCH (20:11)
[2023-07-10] MEDS: LANTUS PER UNIT CHARGE SC SCH (20:32)
[2023-07-11] MEDS: metroNIDAZOLE 500 MG/100 ML BAG IV SCH (00:25)
[2023-07-11] MEDS: methylPREDNISolone 40 MG in SYRINGE 0 ML IV SCH ×3 (00:25→16:55)
[2023-07-11] MEDS: VANCOMYCIN HCL 1,250 MG in SODIUM CHLORIDE 0.9% 250 ML IV SCH (04:59)
[2023-07-11] MEDS: LEVOTHYROXINE SODIUM 200 MCG TABLET PO SCH (05:00)
[2023-07-11] MEDS: ENOXAPARIN INJ 40 MG/0.4 ML SYR SQ SCH ×2 (05:00→20:24)
[2023-07-11] MEDS: ALBUT/IPRATROP 3MG/0.5MG NEB 3 ML VIAL NEB PRN ×3 (05:32→20:27)
[2023-07-11 07:16] LABS: Estimated Average Glucose 114 mg/dl; Hemoglobin A1C 5.6 % (4.5-5.6)
[2023-07-11 07:16] LABS: BUN Creatinine Ratio 52.4 (10-20); Calcium 9.3 mg/dl (8.6-10.3); Est GFR (African American) 129.1 ml/min; Est GFR (Non-African American) 111.4 ml/min; Potassium 4.6 mmol/L (3.5-5.1)
[2023-07-11 07:29] LABS: Basophils # (auto) 0.03 K/uL (0.00-0.20); Basophils % (auto) 0.3 %; Eosinophils # (auto) 0.01 K/uL (0.00-0.50); Eosinophils % (auto) 0.1 %; Hematocrit (blood only) 36.8 % (37.0-47.0); Hemoglobin 11.3 g/dl (12.0-16.0); Immature Granulocytes # (auto) 0.52 K/uL (0.01-0.20); Immature Granulocytes % (auto) 4.4 %; Lymphocytes # (auto) 1.03 K/uL (1.20-3.40); Lymphocytes % (auto) 8.8 %; Mean Corpuscular Hemoglobin 27.4 pg (25.0-34.0); Mean Corpuscular Hgb Conc 30.7 g/dL (32.0-36.0); Mean Corpuscular Volume 89.3 fL (80.0-100.0); Mean Platelet Volume 11.9 fL (9.4-12.4); Monocytes # (auto) 0.33 K/uL (0.11-0.59); Monocytes % (auto) 2.8 %; Neutrophils % (auto) 83.6 %; Platelet Count 192 K/uL (130-400); RDW Coefficient of Variation 14.5 % (11.5-14.5); RDW Standard Deviation 47.3 fL (36.4-46.3); Red Blood Count 4.12 M/uL (4.20-5.40); White Blood Count 11.72 K/ul (4.8-10.8)
--- NOTE | 2023-07-11 07:45 | Hospitalist Progress Note ---
Date of Service July 11, 2023 Assessment & Plan (1) Sepsis: Plan: Sepsis due to pneumonia CTA findings of consolidation within left lower lobe possibly aspiration pneumonia, chronic consolidation in right lower lobe favors atelectasis versus superimposed pneumonia Nasal MRSA swab positive - no fever since 07/08 Blood cultures 07/08 NGTD Sputum culture 07/09 pinpoint growth at present Urinary Legionella antigen testing pending, lobar pnx, will stop flagyl with location, consider home on linezolid and imaging follow up (2) (HFpEF) heart failure with preserved ejection fraction: Plan: Continue home medicationsLipitor, metoprolol Resumed home bumetanide and as needed metolazone Patient is tolerated hypertension difficult to undertake given her body habitus and the reliability of blood pressure readings. Subsequently will be giving additional dose of diuretic, hydralazine as needed, increase home medications of metoprolol. (3) Chronic obstructive pulmonary disease: Plan: With acute exacerbation Continue inhalers Pulmonary toilet Antibiotics as noted methylprednisolone 40 mg 3 times dailyTaper to prednisone therapy on 1016. Pharmacy consulted for assistance with glycemic management while on steroids (4) Severe obstructive sleep apnea: Plan: Patient may use her own AVAPS, or BiPAP nightly (5) Diabetes type 2, uncontrolled: Plan: Weight-based sliding scale. Goal BSG 1 84196. Pharmacy consulted due to concurrent steroid use (6) Candidal intertrigo: Plan: Patient requested topical nystatin which is unavailable inpatient, will prescribe topical miconazole Plan DVT prophylaxis: Lovenox CODE STATUS: Full code Diet: Heart healthy/DM2 Admission and Anticipated Discharge Date Admission Date: July 08, 2023 Subjective Patient denies any significant chest heaviness says she just does not feel well she is short of breath only when she lays down feels better when she is up moving around the chest discomfort she previously has not pleuritic she had some difficulty control blood pressure. Physical Exam Physical Exam: Awake alert appropriate able to follow commands Cardiac exam is regular no rubs but it is a difficult exam given her BMI and body habitus Lungs likely are also clear but difficult to examine. Extremities are with trace edema Results & Data Results & Data Vital Signs (Past 12 Hours) Vital Signs Temp Pulse Pulse Resp BP Pulse Ox O2 Del Method 07/11/23 05:32 86 18 97 Room Air 07/11/23 05:05 194/82 H 07/11/23 02:38 20 07/11/23 03:33 98.4 F 84 20 194/100 H 97 Room Air, BiPAP 07/10/23 23:00 07/10/23 21:30 86 14 96 07/10/23 22:58 98.6 F 89 22 165/72 H 97 BiPAP 07/10/23 22:56 96 H 07/10/23 20:00 Nasal Cannula 07/10/23 20:50 84 18 96 Room Air 07/10/23 19:45 98.6 F 87 21 160/69 H 95 Nasal Cannula O2 Del Method O2 Flow Rate 07/11/23 05:32 07/11/23 05:05 07/11/23 02:38 3 07/11/23 03:33 07/10/23 23:00 BiPAP 07/10/23 21:30 3 07/10/23 22:58 6 07/10/23 22:56 07/10/23 20:00 07/10/23 20:50 07/10/23 19:45 2 Laboratory Results Reviewed CBC reviewed chemistry PG Care Time/CCT Total # of Minutes Spent Total Time Spent with Patient: Total time spent is greater than 50% in coordination of care (as documented) at patient's floor/unit and/or counseling patient: Coding Level of Care Code 57156 SUB INP/OBS CARE 3/50MIN Diagnoses Sepsis A41.9 (HFpEF) heart failure with preserved ejection fraction I50.30 Chronic obstructive pulmonary disease J44.9 COPD type: unspecified COPD Severe obstructive sleep apnea G47.33 Diabetes type 2, uncontrolled E11.65 Glycemic state: with hyperglycemia Candidal intertrigo B37.2 (3) Chronic obstructive pulmonary disease COPD type: unspecified COPD Qualified Code(s): J44.9 - Chronic obstructive pulmonary disease, unspecified (5) Diabetes type 2, uncontrolled Glycemic state: with hyperglycemia Qualified Code(s): E11.65 - Type 2 diabe theo mellitus with hyperglycemia
[2023-07-11] MEDS: PARoxetine HCL 20 MG TAB PO SCH (08:18)
[2023-07-11] MEDS: BUMETANIDE 1 MG TAB PO SCH (08:18)
[2023-07-11] MEDS: ARIPiprazole 15 MG TAB PO SCH (08:18)
[2023-07-11] MEDS: GABAPENTIN 300 MG CAP PO SCH ×3 (08:18→20:24)
[2023-07-11] MEDS: PANTOprazole 40 MG TAB PO SCH (08:19)
[2023-07-11] MEDS: METOPROLOL SUCC 25MG EXT REL TAB PO SCH (08:19)
[2023-07-11] MEDS: ATORVASTATIN 20 MG TAB PO SCH (08:19)
[2023-07-11] MEDS: UMECLIDINIUM/VILANTEROL 62.5/25MCG 7 PUFFS/INHALER INH SCH (08:19)
[2023-07-11] MEDS: FLUTICASONE FUROATE 100MCG 14 PUFFS/INHALER INH SCH (08:21)
[2023-07-11] MEDS: INSULIN ASPART PER UNIT CHARGE SC SCH ×4 (08:28→20:34)
[2023-07-11] MEDS: AZITHROMYCIN 250 MG in DEXTROSE 5% 250 ML IV SCH (08:29)
--- NOTE | 2023-07-11 08:39 | Pharmacy Report ---
Pharmacy Glycemic Short Note 2 - Date of Service July 11, 2023 - Glycemic Short BSG Results (Last 24 hours): 07/10/23 07/10/23 07/10/23 11:26 16:34 20:17 Glucose POC Glucose 157 H 168 H 179 H 07/11/23 07/11/23 06:44 07:33 Glucose 167 H POC Glucose 149 H OUTPATIENT ANTIDIABETIC REGIMEN: * Farxiga 10 mg PO daily * Lantus 13 units SQ QPM * Humalog SSI * Victoza 1.8 mg SQ daily HbA1c: 6.7% (01/04/23) ASSESSMENT: 07/11/23: * BSGs have been reasonably well-controlled thus far, although slightly above goal range * Patient received 50 units of insulin yesterday (20 units of basal and 30 units of prandial/correctional bolus) * Fasting BSG improved to 149 mg/dL w/ increased dose of basal - will plan to continue this dose today * Continues on methylprednisolone 40 mg IV q8h - will tighten carb ratio today 07/09/23: * 58 y/o F admitted for Pneumonia and Sepsis yesterday. She has history of Type 2 diabetes managed on basal and bolus insulins as well as oral Farxiga and SQ Victoza. HbA1c ordered for tomorrow. * Pharmacy consulted for glycemic management yesterday, * Patient was started on IV Solumedrol 40 mg Q8h last night. * Novolog was started with parameters based on stress of 3 and Lantus dose (based on stress between 2 and 3) last night. * BSGs have been fairly well controlled. Continue same dose of basal and Novolog parameters as yesterday. PLAN FOR INPATIENT GLYCEMIC CONTROL: * Hold outpatient oral and SQ diabetes medications * Basal insulin - continue * Lantus 20 units SQ HS * Bolus insulin - tighten carb ratio * NovoLog per scale ACHS or Q6hrs while NPO * Goal Range: Low 110 mg/dL - High 140 mg/dL * Correction Factor: 20 mg/dL/unit * Nutritional / Prandial insulin per carb ratio of 1 unit per 5 grams CHO consumed
[2023-07-11] MEDS ORDERED: VANCOMYCIN LEVEL ONE (10:00)
[2023-07-11] MEDS: clonazePAM 0.5 MG TAB PO PRN ×2 (10:37→20:24)
[2023-07-11] MEDS: ACETAMINOPHEN 325 MG TAB PO PRN (15:54)
[2023-07-11] MEDS ORDERED: hydrALAZINE HCL 20 MG/ML VIAL IV PRN (16:24)
[2023-07-11] MEDS ORDERED: FUROSEMIDE 40 MG/4 ML VIAL IV ONE (16:24)
--- NOTE | 2023-07-11 16:31 | Hospitalist Progress Note ---
Date of Service July 11, 2023 Assessment & Plan (1) Sepsis: Plan: Sepsis due to pneumonia CTA findings of consolidation within left lower lobe possibly aspiration pneumonia, chronic consolidation in right lower lobe favors atelectasis versus superimposed pneumonia Nasal MRSA swab positive - no fever since 07/08 Blood cultures 07/08 NGTD Sputum culture 07/09 pinpoint growth at present Urinary Legionella antigen testing pending, lobar pnx, will stop flagyl with location, consider home on linezolid and imaging follow up (2) (HFpEF) heart failure with preserved ejection fraction: Plan: Continue home medicationsLipitor, metoprolol Resumed home bumetanide and as needed metolazone Patient is tolerated hypertension difficult to undertake given her body habitus and the reliability of blood pressure readings. Subsequently will be giving additional dose of diuretic, hydralazine as needed, increase home medications of metoprolol. Due to the positional nature of her chest discomfort we will check an echocardiogram and get a sed rate in the morning of 07/12 (3) Chronic obstructive pulmonary disease: Plan: With acute exacerbation Continue inhalers Pulmonary toilet Antibiotics as noted methylprednisolone 40 mg 3 times dailyTaper to prednisone therapy on 1016. Pharmacy consulted for assistance with glycemic management while on steroids (4) Severe obstructive sleep apnea: Plan: Patient may use her own AVAPS, or BiPAP nightly (5) Diabetes type 2, uncontrolled: Plan: Weight-based sliding scale. Goal BSG 1 75310. Pharmacy consulted due to concurrent steroid use (6) Candidal intertrigo: Plan: Patient requested topical nystatin which is unavailable inpatient, will prescribe topical miconazole Plan DVT prophylaxis: Lovenox CODE STATUS: Full code Diet: Heart healthy/DM2 Admission and Anticipated Discharge Date Admission Date: July 08, 2023 Subjective Patient denies any significant chest heaviness says she just does not feel well she is short of breath only when she lays down feels better when she is up moving around the chest discomfort she previously has not pleuritic she had some difficulty control blood pressure. Physical Exam Physical Exam: Awake alert appropriate able to follow commands Cardiac exam is regular no rubs but it is a difficult exam given her BMI and body habitus Lungs likely are also clear but difficult to examine. Extremities are with trace edema Results & Data Results & Data Vital Signs (Past 12 Hours) Vital Signs Temp Pulse Resp BP Pulse Ox O2 Del Method O2 Del Method 07/11/23 16:16 98.1 F 88 18 203/105 H 97 Nasal Cannula 07/11/23 12:00 Nasal Cannula 07/11/23 10:41 91 H 20 93 Nasal Cannula 07/11/23 12:01 98.4 F 96 H 18 187/85 H 95 Nasal Cannula 07/11/23 08:00 Nasal Cannula 07/11/23 07:54 98.6 F 89 202/85 H 95 Nasal Cannula 07/11/23 05:32 86 18 97 Room Air 07/11/23 05:05 194/82 H O2 Flow Rate O2 Flow Rate 07/11/23 16:16 2 07/11/23 12:00 3 07/11/23 10:41 2 07/11/23 12:01 2 07/11/23 08:00 2 07/11/23 07:54 2 07/11/23 05:32 07/11/23 05:05 PG Care Time/CCT Total # of Minutes Spent Total Time Spent with Patient: Total time spent is greater than 50% in coordination of care (as documented) at patient's floor/unit and/or counseling patient: Coding Level of Care Code None Diagnoses Sepsis A41.9 (HFpEF) heart failure with preserved ejection fraction I50.30 Chronic obstructive pulmonary disease J44.9 COPD type: unspecified COPD Severe obstructive sleep apnea G47.33 Diabetes type 2, uncontrolled E11.65 Glycemic state: with hyperglycemia Candidal intertrigo B37.2 (3) Chronic obstructive pulmonary disease COPD type: unspecified COPD Qualified Code(s): J44.9 - Chronic obstructive pulmonary disease, unspecified (5) Diabetes type 2, uncontrolled Glycemic state: with hyperglycemia Qualified Code(s): E11.65 - Type 2 diabetes mellitus with hyperglycemia
[2023-07-11] MEDS: cefTRIAXone SODIUM 2,000 MG in DEXTROSE 5 % MINI-B 50 ML IV SCH (20:24)
[2023-07-11] MEDS: PRAZOSIN HCL 1 MG CAP PO SCH (20:24)
[2023-07-11] MEDS: LANTUS PER UNIT CHARGE SC SCH (20:33)
[2023-07-12] MEDS: LEVOTHYROXINE SODIUM 200 MCG TABLET PO SCH (05:52)
[2023-07-12] MEDS: ENOXAPARIN INJ 40 MG/0.4 ML SYR SQ SCH ×2 (05:52→17:09)
[2023-07-12] MEDS: ALBUT/IPRATROP 3MG/0.5MG NEB 3 ML VIAL NEB PRN ×3 (07:50→15:03)
[2023-07-12] MEDS: GABAPENTIN 300 MG CAP PO SCH ×3 (08:14→21:00)
[2023-07-12] MEDS: ACETAMINOPHEN 325 MG TAB PO PRN ×2 (08:14→17:55)
[2023-07-12] MEDS: BUMETANIDE 1 MG TAB PO SCH (08:14)
[2023-07-12] MEDS: ARIPiprazole 15 MG TAB PO SCH (08:14)
[2023-07-12] MEDS: METOPROLOL SUCC 50MG EXT REL TAB PO SCH (08:15)
[2023-07-12] MEDS: predniSONE 20 MG TAB PO SCH (08:15)
[2023-07-12] MEDS: ATORVASTATIN 20 MG TAB PO SCH (08:15)
[2023-07-12] MEDS: PARoxetine HCL 20 MG TAB PO SCH (08:15)
[2023-07-12] MEDS: PANTOprazole 40 MG TAB PO SCH (08:15)
[2023-07-12] MEDS: FLUTICASONE FUROATE 100MCG 14 PUFFS/INHALER INH SCH (08:16)
[2023-07-12] MEDS: UMECLIDINIUM/VILANTEROL 62.5/25MCG 7 PUFFS/INHALER INH SCH (08:17)
[2023-07-12] MEDS: AZITHROMYCIN 250 MG in DEXTROSE 5% 250 ML IV SCH (08:20)
[2023-07-12] MEDS: INSULIN ASPART PER UNIT CHARGE SC SCH ×4 (08:20→20:53)
--- NOTE | 2023-07-12 12:04 | Pharmacy Report ---
Pharmacy Glycemic Short Note 2 - Date of Service July 12, 2023 - Glycemic Short BSG Results (Last 24 hours): 07/11/23 07/11/23 07/12/23 16:08 20:30 07:21 POC Glucose 172 H 192 H 84 07/12/23 11:48 POC Glucose 160 H OUTPATIENT ANTIDIABETIC REGIMEN: * Farxiga 10 mg PO daily * Lantus 13 units SQ QPM * Humalog SSI * Victoza 1.8 mg SQ daily HbA1c: 6.7% (01/04/23) ASSESSMENT: 07/12/23: * Steroids changed from IV methylprednisolone 40 mg IV q8h to prednisone 20 mg PO daily starting today * Fasting BSG of 84 mg/dL this morning, will decrease basal insulin this evening * Will also loosen Novolog carb coverage today due to change in steroids 07/11/23: * BSGs have been reasonably well-controlled thus far, although slightly above goal range * Patient received 50 units of insulin yesterday (20 units of basal and 30 units of prandial/correctional bolus) * Fasting BSG improved to 149 mg/dL w/ increased dose of basal - will plan to continue this dose today * Continues on methylprednisolone 40 mg IV q8h - will tighten carb ratio today 07/09/23: * 58 y/o F admitted for Pneumonia and Sepsis yesterday. She has history of Type 2 diabetes managed on basal and bolus insulins as well as oral Farxiga and SQ Victoza. HbA1c ordered for tomorrow. * Pharmacy consulted for glycemic management yesterday, * Patient was started on IV Solumedrol 40 mg Q8h last night. * Novolog was started with parameters based on stress of 3 and Lantus dose (based on stress between 2 and 3) last night. * BSGs have been fairly well controlled. Continue same dose of basal and Novolog parameters as yesterday. PLAN FOR INPATIENT GLYCEMIC CONTROL: * Hold outpatient oral and SQ diabetes medications * Basal insulin - decrease * Lantus 10 units SQ HS * Bolus insulin - loosen carb ratio * NovoLog per scale ACHS or Q6hrs while NPO * Goal Range: Low 110 mg/dL - High 140 mg/dL * Correction Factor: 20 mg/dL/unit * Nutritional / Prandial insulin per carb ratio of 1 unit per 7 grams CHO consumed
[2023-07-12] MEDS: clonazePAM 0.5 MG TAB PO PRN ×2 (12:26→21:00)
--- NOTE | 2023-07-12 16:46 | Hospitalist Progress Note ---
Date of Service July 12, 2023 Assessment & Plan (1) Sepsis: Plan: Sepsis due to pneumonia CTA findings of consolidation within left lower lobe possibly aspiration pneumonia, chronic consolidation in right lower lobe favors atelectasis versus superimposed pneumonia Nasal MRSA swab positive - no fever since 07/08 Blood cultures 07/08 NGTD Sputum culture 07/09 pinpoint growth at present Urinary Legionella antigen testing pending, lobar pnx, will stop flagyl with location, continue ceftriaxone and azithromycin for community-acquired pneumonia (2) (HFpEF) heart failure with preserved ejection fraction: Plan: Continue home medicationsLipitor, metoprolol Resumed home bumetanide and as needed metolazone Patient is tolerated hypertension difficult to undertake given her body habitus and the reliability of blood pressure readings. Subsequently will be giving additional dose of diuretic, hydralazine as needed, increase home medications of metoprolol. ESR is 42 pending echocardiogram (3) Chronic obstructive pulmonary disease: Plan: With acute exacerbation Continue inhalers Pulmonary toilet Antibiotics as noted methylprednisolone 40 mg 3 times dailyTaper to prednisone therapy on 07/12. Pharmacy consulted for assistance with glycemic management while on steroids (4) Severe obstructive sleep apnea: Plan: Patient may use her own AVAPS, or BiPAP nightly (5) Diabetes type 2, uncontrolled: Plan: Weight-based sliding scale. Goal BSG 1 82180. Pharmacy consulted due to concurrent steroid use (6) Candidal intertrigo: Plan: Patient requested topical nystatin which is unavailable inpatient, will prescribe topical miconazole Plan DVT prophylaxis: Lovenox CODE STATUS: Full code Diet: Heart healthy/DM2 Admission and Anticipated Discharge Date Admission Date: July 08, 2023 Subjective pt feels improved today, her family is at the bedside and are pleased with her progress Physical Exam Physical Exam: patient still has her tremor she is sitting in the chair she is a systolic murmur at the right of sternal border which her family endorses is old lungs are diminished at the bases but otherwise are clear Results & Data Results & Data Vital Signs (Past 12 Hours) Vital Signs Temp Pulse Resp BP Pulse Ox Pulse Ox Pulse Ox 07/12/23 15:23 97.9 F 90 20 180/80 H 96 07/12/23 15:06 96 H 20 96 07/12/23 13:06 94 07/12/23 12:00 07/12/23 11:56 98.4 F 94 H 18 151/76 H 96 07/12/23 11:31 97 91 07/12/23 11:11 90 20 96 07/12/23 08:00 07/12/23 07:50 76 18 96 07/12/23 07:40 97.7 F 79 18 190/70 H 98 O2 Del Method O2 Del Method O2 Flow Rate O2 Flow Rate O2 Flow Rate O2 Flow Rate 07/12/23 15:23 Nasal Cannula 2 07/12/23 15:06 Nasal Cannula 2 07/12/23 13:06 07/12/23 12:00 Nasal Cannula 3 07/12/23 11:56 Nasal Cannula 2 07/12/23 11:31 2 3 07/12/23 11:11 Nasal Cannula 2 07/12/23 08:00 Nasal Cannula 3 07/12/23 07:50 Nasal Cannula 2 07/12/23 07:40 Nasal Cannula 2 Laboratory Results reviewed sed rate reviewed glucose trend PG Care Time/CCT Total # of Minutes Spent Total Time Spent with Patient: Total time spent is greater than 50% in coordination of care (as documented) at patient's floor/unit and/or counseling patient: Coding Level of Care Code 76164 SUB INP/OBS CARE 2/35MIN Diagnoses Sepsis A41.9 (HFpEF) heart failure with preserved ejection fraction I50.30 Chronic obstructive pulmonary disease J44.9 COPD type: unspecified COPD Severe obstructive sleep apnea G47.33 Diabetes type 2, uncontrolled E11.65 Glycemic state: with hyperglycemia Candidal intertrigo B37.2 (3) Chronic obstructive pulmonary disease COPD type: unspecified COPD Qualified Code(s): J44.9 - Chronic obstructive pulmonary disease, unspecified (5) Diabetes type 2, uncontrolled Glycemic state: with hyperglycemia Qualified Code(s): E11.65 - Type 2 diabetes mellitus with hyperglycemia
--- NOTE | 2023-07-12 18:35 | XCELERA ---
[id number]
[2023-07-12] MEDS: cefTRIAXone SODIUM 2,000 MG in DEXTROSE 5 % MINI-B 50 ML IV SCH (20:59)
[2023-07-12] MEDS: LANTUS PER UNIT CHARGE SC SCH (20:59)
[2023-07-12] MEDS: PRAZOSIN HCL 1 MG CAP PO SCH (21:00)
[2023-07-13] MEDS: ACETAMINOPHEN 325 MG TAB PO PRN ×3 (00:25→20:50)
[2023-07-13] MEDS: LEVOTHYROXINE SODIUM 200 MCG TABLET PO SCH (06:16)
[2023-07-13] MEDS: ENOXAPARIN INJ 40 MG/0.4 ML SYR SQ SCH ×2 (06:16→18:18)
[2023-07-13] MEDS: METOPROLOL SUCC 50MG EXT REL TAB PO SCH (08:50)
[2023-07-13] MEDS: BUMETANIDE 1 MG TAB PO SCH (08:50)
[2023-07-13] MEDS: ARIPiprazole 15 MG TAB PO SCH (08:50)
[2023-07-13] MEDS: PARoxetine HCL 20 MG TAB PO SCH (08:50)
[2023-07-13] MEDS: PANTOprazole 40 MG TAB PO SCH (08:51)
[2023-07-13] MEDS: GABAPENTIN 300 MG CAP PO SCH ×3 (08:51→20:51)
[2023-07-13] MEDS: clonazePAM 0.5 MG TAB PO PRN ×2 (08:51→20:51)
[2023-07-13] MEDS: ATORVASTATIN 20 MG TAB PO SCH (08:51)
[2023-07-13] MEDS: predniSONE 20 MG TAB PO SCH (08:51)
[2023-07-13] MEDS: FLUTICASONE FUROATE 100MCG 14 PUFFS/INHALER INH SCH (08:51)
[2023-07-13] MEDS: AZITHROMYCIN 250 MG in DEXTROSE 5% 250 ML IV SCH (08:51)
[2023-07-13] MEDS: UMECLIDINIUM/VILANTEROL 62.5/25MCG 7 PUFFS/INHALER INH SCH (08:52)
[2023-07-13] MEDS: INSULIN ASPART PER UNIT CHARGE SC SCH ×4 (08:55→20:35)
--- NOTE | 2023-07-13 09:41 | Pharmacy Report ---
Pharmacy Glycemic Short Note 2 - Date of Service July 13, 2023 - Glycemic Short BSG Results (Last 24 hours): 07/12/23 07/12/23 07/12/23 11:48 16:07 20:12 POC Glucose 160 H 281 H 128 H 07/13/23 07:28 POC Glucose 91 OUTPATIENT ANTIDIABETIC REGIMEN: * Farxiga 10 mg PO daily * Lantus 13 units SQ QPM * Humalog SSI * Victoza 1.8 mg SQ daily HbA1c: 6.7% (01/04/23) ASSESSMENT: 07/13: * BSGs 496-193-43tz/dl the last 24h. Received 10 units of basal and 31 units of bolus insulin yesterday. * Continues on prednisone 20mg PO daily, antibiotics, and tolerating diet. * Continue reduced dose basal today. Novolog carb ratio tightened slightly given elevated prandial BSGs last evening. 07/12/23: * Steroids changed from IV methylprednisolone 40 mg IV q8h to prednisone 20 mg PO daily starting today * Fasting BSG of 84 mg/dL this morning, will decrease basal insulin this evening * Will also loosen Novolog carb coverage today due to change in steroids 07/11/23: * BSGs have been reasonably well-controlled thus far, although slightly above goal range * Patient received 50 units of insulin yesterday (20 units of basal and 30 units of prandial/correctional bolus) * Fasting BSG improved to 149 mg/dL w/ increased dose of basal - will plan to continue this dose today * Continues on methylprednisolone 40 mg IV q8h - will tighten carb ratio today 07/09/23: * 58 y/o F admitted for Pneumonia and Sepsis yesterday. She has history of Type 2 diabetes managed on basal and bolus insulins as well as oral Farxiga and SQ Victoza. HbA1c ordered for tomorrow. * Pharmacy consulted for glycemic management yesterday, * Patient was started on IV Solumedrol 40 mg Q8h last night. * Novolog was started with parameters based on stress of 3 and Lantus dose (based on stress between 2 and 3) last night. * BSGs have been fairly well controlled. Continue same dose of basal and Novolog parameters as yesterday. PLAN FOR INPATIENT GLYCEMIC CONTROL: * Hold outpatient oral and SQ diabetes medications * Basal insulin - decrease * Lantus 10 units SQ HS * Bolus insulin - loosen carb ratio * NovoLog per scale ACHS or Q6hrs while NPO * Goal Range: Low 110 mg/dL - High 140 mg/dL * Correction Factor: 20 mg/dL/unit * Nutritional / Prandial insulin per carb ratio of 1 unit per 6 grams CHO consumed
--- NOTE | 2023-07-13 16:23 | Hospitalist Progress Note ---
Date of Service July 13, 2023 Assessment & Plan (1) Sepsis: Plan: Sepsis due to pneumonia CTA findings of consolidation within left lower lobe possibly aspiration pneumonia, chronic consolidation in right lower lobe favors atelectasis versus superimposed pneumonia Nasal MRSA swab positive - no fever since 07/08 Blood cultures 07/08 NGTD Sputum culture 07/09 pinpoint growth at present Urinary Legionella antigen testing pending, lobar pnx, will stop flagyl with location, continue ceftriaxone and azithromycin for community-acquired pneumonia (2) (HFpEF) heart failure with preserved ejection fraction: Plan: Continue home medicationsLipitor, metoprolol Resumed home bumetanide and as needed metolazone Patient is tolerated hypertension difficult to undertake given her body habitus and the reliability of blood pressure readings. Subsequently will be giving additional dose of diuretic, hydralazine as needed, increase home medications of metoprolol. Echocardiogram (3) Chronic obstructive pulmonary disease: Plan: With acute exacerbation Continue inhalers Pulmonary toilet Antibiotics as noted prednisone therapy on 07/12 with taper . Pharmacy consulted for assistance with glycemic management while on steroids (4) Severe obstructive sleep apnea: Plan: Patient may use her own AVAPS, or BiPAP nightly (5) Diabetes type 2, uncontrolled: Plan: Weight-based sliding scale. Goal BSG 1 53531. Pharmacy consulted due to concurrent steroid use (6) Candidal intertrigo: Plan: Patient requested topical nystatin which is unavailable inpatient, will prescribe topical miconazole Plan DVT prophylaxis: Lovenox CODE STATUS: Full code Diet: Heart healthy/DM2 Admission and Anticipated Discharge Date Admission Date: July 08, 2023 Subjective pt feels improved today, her family is at the bedside and are pleased with her progress arranging for transportation and care givers for 07/14/23 discharge Physical Exam Physical Exam: patient still has her tremor she is sitting in the chair she is a systolic murmur at the right of sternal border which her family endorses is old lungs are diminished at the bases but otherwise are clear Results & Data Results & Data Vital Signs (Past 12 Hours) Vital Signs Temp Pulse Resp BP Pulse Ox O2 Del Method O2 Flow Rate 07/13/23 15:29 97.9 F 69 20 152/87 H 98 Nasal Cannula 2 07/13/23 11:44 97.5 F L 77 18 128/80 98 Nasal Cannula 2 07/13/23 08:00 Nasal Cannula 3 07/13/23 07:46 97.2 F L 75 20 152/81 H 97 Nasal Cannula 2 PG Care Time/CCT Total # of Minutes Spent Total Time Spent with Patient: Total time spent is greater than 50% in coordination of care (as documented) at patient's floor/unit and/or counseling patient: Coding Level of Care Code 87521 SUB INP/OBS CARE 2/35MIN Diagnoses Sepsis A41.9 (HFpEF) heart failure with preserved ejection fraction I50.30 Chronic obstructive pulmonary disease J44.9 COPD type: unspecified COPD Severe obstructive sleep apnea G47.33 Diabetes type 2, uncontrolled E11.65 Glycemic state: with hyperglycemia Candidal intertrigo B37.2 (3) Chronic obstructive pulmonary disease COPD type: unspecified COPD Qualified Code(s): J44.9 - Chronic obstructive pulmonary disease, unspecified (5) Diabetes type 2, uncontrolled Glycemic state: with hyperglycemia Qualified Code(s): E11.65 - Type 2 diabetes mellitus with hyperglycemia
[2023-07-13] MEDS: LANTUS PER UNIT CHARGE SC SCH (20:48)
[2023-07-13] MEDS: PRAZOSIN HCL 1 MG CAP PO SCH (20:51)
[2023-07-13] MEDS: cefTRIAXone SODIUM 2,000 MG in DEXTROSE 5 % MINI-B 50 ML IV SCH (20:51)
[2023-07-14] MEDS: ENOXAPARIN INJ 40 MG/0.4 ML SYR SQ SCH (06:19)
[2023-07-14] MEDS: LEVOTHYROXINE SODIUM 200 MCG TABLET PO SCH (06:19)
[2023-07-14] MEDS: FLUTICASONE FUROATE 100MCG 14 PUFFS/INHALER INH SCH (08:46)
[2023-07-14] MEDS: AZITHROMYCIN 250 MG in DEXTROSE 5% 250 ML IV SCH (08:46)
[2023-07-14] MEDS: clonazePAM 0.5 MG TAB PO PRN (08:47)
[2023-07-14] MEDS: GABAPENTIN 300 MG CAP PO SCH (08:47)
[2023-07-14] MEDS: PARoxetine HCL 20 MG TAB PO SCH (08:47)
[2023-07-14] MEDS: predniSONE 20 MG TAB PO SCH (08:47)
[2023-07-14] MEDS: ATORVASTATIN 20 MG TAB PO SCH (08:47)
[2023-07-14] MEDS: PANTOprazole 40 MG TAB PO SCH (08:47)
[2023-07-14] MEDS: UMECLIDINIUM/VILANTEROL 62.5/25MCG 7 PUFFS/INHALER INH SCH (08:47)
[2023-07-14] MEDS: METOPROLOL SUCC 50MG EXT REL TAB PO SCH (08:48)
[2023-07-14] MEDS: BUMETANIDE 1 MG TAB PO SCH (08:48)
[2023-07-14] MEDS: ACETAMINOPHEN 325 MG TAB PO PRN (08:48)
[2023-07-14] MEDS: ARIPiprazole 15 MG TAB PO SCH (08:49)
[2023-07-14] MEDS: INSULIN ASPART PER UNIT CHARGE SC SCH (08:52)
--- NOTE | 2023-07-14 09:57 | Pharmacy Report ---
Pharmacy Glycemic Short Note 2 - Date of Service July 14, 2023 - Glycemic Short BSG Results (Last 24 hours): 07/13/23 07/13/23 07/13/23 11:00 15:57 20:27 POC Glucose 104 H 138 H 108 H 07/14/23 07:34 POC Glucose 92 OUTPATIENT ANTIDIABETIC REGIMEN: * Farxiga 10 mg PO daily * Lantus 13 units SQ QPM * Humalog SSI * Victoza 1.8 mg SQ daily HbA1c: 6.7% (01/04/23) ASSESSMENT: 07/14: * BSGs well controlled the last 24h: 932-819-17fu/dL. Received 10 units of basal and 25 units of bolus insulin yesterday. * Tolerating diet, continues on steroids and antibiotics. * Will reduce basal slightly today given fasting BSG on the low side. No change to Novolog parameters. 07/13: * BSGs 900-989-47sa/dl the last 24h. Received 10 units of basal and 31 units of bolus insulin yesterday. * Continues on prednisone 20mg PO daily, antibiotics, and tolerating diet. * Continue reduced dose basal today. Novolog carb ratio tightened slightly given elevated prandial BSGs last evening. 07/12/23: * Steroids changed from IV methylprednisolone 40 mg IV q8h to prednisone 20 mg PO daily starting today * Fasting BSG of 84 mg/dL this morning, will decrease basal insulin this evening * Will also loosen Novolog carb coverage today due to change in steroids 07/11/23: * BSGs have been reasonably well-controlled thus far, although slightly above goal range * Patient received 50 units of insulin yesterday (20 units of basal and 30 units of prandial/correctional bolus) * Fasting BSG improved to 149 mg/dL w/ increased dose of basal - will plan to continue this dose today * Continues on methylprednisolone 40 mg IV q8h - will tighten carb ratio today 07/09/23: * 58 y/o F admitted for Pneumonia and Sepsis yesterday. She has history of Type 2 diabetes managed on basal and bolus insulins as well as oral Farxiga and SQ Victoza. HbA1c ordered for tomorrow. * Pharmacy consulted for glycemic management yesterday, * Patient was started on IV Solumedrol 40 mg Q8h last night. * Novolog was started with parameters based on stress of 3 and Lantus dose (based on stress between 2 and 3) last night. * BSGs have been fairly well controlled. Continue same dose of basal and Novolog parameters as yesterday. PLAN FOR INPATIENT GLYCEMIC CONTROL: * Hold outpatient oral and SQ diabetes medications * Basal insulin - * Lantus 8 units SQ HS * Bolus insulin - * NovoLog per scale ACHS or Q6hrs while NPO * Goal Range: Low 110 mg/dL - High 140 mg/dL * Correction Factor: 20 mg/dL/unit * Nutritional / Prandial insulin per carb ratio of 1 unit per 6 grams CHO consumed
--- NOTE | 2023-07-14 11:33 | Discharge Summary ---
Date of Service July 14, 2023 Admission HPI Per Admitting Provider Marianne is a 58-year-old female with past medical history of CHF, COPD who presented for dyspnea and respiratory distress. She is tachycardic, requiring nasal cannula, and hypertensive and febrile on ER evaluation.CXR: Cardiomegaly with pulmonary vascular congestion, no airspace consolidation or large pleural effusion are noted.Cefepime ordered empirically in ER. Patient received 500 cc of saline for possible pneumonia, aggressive fluids deferred due to history of CHF. Patient was hypertensive and received 10 mg of IV labetalol Patient seen at the bedside. She reports she has had fevers and shaking chills for 2 days. She has also had increased wheezing which started around 4 to 5 days ago. She has a history of heart failure with leg swelling. She has not had any orthopnea in the past few days, and does not feel like her legs are swollen. She is thirsty. She reports she is short of breath more than normal of the time this is not worsened by laying flat. She has been coughing but has not had a changes sputum production, occasional white sputum is produced with her cough. She does not have any abdominal pain, denies nausea/vomiting/diarrhea/constipation. She denies skin injuries and limb pain, no areas of cellulitis to her knowledge she reports she is not taking medications last night or this morning due to feeling poorly. She is on AVAPS at night normally, is not sure if this helps with her breathing, normally she reports this works but has not made much of a difference in the last few days Medical History: Reviewed Medications: Reviewed Surgical History: Reviewed Family history: Reviewed Allergies: Reviewed Social History: Reviewed Code Status: Full code Principal Diagnosis COPD exacerbation Discharge Exam patient still has her tremor she is sitting in the chair she is a systolic murmur at the right of sternal border which her family endorses is old lungs are diminished at the bases but otherwise are clear Discharge Data Allergies Allergy/AdvReac Type Severity Reaction Status Date / Time bupropion Allergy Unknown Hives Verified 06/30/23 10:43 Sulfa (Sulfonamide Allergy Unknown Hives Verified 06/30/23 10:43 Antibiotics) Consultations 07/08/23 13:47 ED Decision to Admit Stat Ordered Studies 07/08/23 15:06 CT angio chest PE protocol Stat Hospital Course (1) Sepsis: Sepsis due to pneumonia CTA findings of consolidation within left lower lobe possibly aspiration pneumonia, chronic consolidation in right lower lobe favors atelectasis versus superimposed pneumonia Nasal MRSA swab positive - no fever since 07/08 Blood cultures 07/08 NGTD Sputum culture 07/09 pinpoint growth at present Urinary Legionella antigen testing pending, lobar pnx, will stop flagyl with location, treated with ceftriaxone and azithromycin for community-acquired pneumonia Completed 5 days of azithromycin. COmpleted close to 6 days of cephalosporin. will continue cefuroxime for 2 more days. PAtient will also be on a steroid taper at discharge. (2) (HFpEF) heart failure with preserved ejection fraction: Continue home medicationsLipitor, metoprolol Resumed home bumetanide and as needed metolazone Patient is tolerated hypertension difficult to undertake given her body habitus and the reliability of blood pressure readings. Subsequently will be giving additional dose of diuretic, hydralazine as needed, increase home medications of metoprolol. Echocardiogram: normal EF. No wall motion abnormalities (3) Chronic obstructive pulmonary disease: With acute exacerbation Continue inhalers Pulmonary toilet Antibiotics as noted prednisone therapy on 07/12 with taper . Will complete 4 more days. (4) Severe obstructive sleep apnea: Patient may use her own AVAPS, or BiPAP nightly (5) Diabetes type 2, uncontrolled: Weight-based sliding scale. Goal BSG 1 [id number]. Pharmacy consulted due to concurrent steroid use (6) Candidal intertrigo: Patient requested topical nystatin which is unavailable inpatient, will prescribe topical miconazole Plan DVT prophylaxis: Lovenox CODE STATUS: Full code Diet: Heart healthy/DM2 Total Time Total Time Spent Total Time Spent (In Minutes): 35 Discharge Plan Discharge Items Patient Disposition: Home - Home Health Services Reason For Visit: SEPSIS, SUSPECT PNA, COPD EXACERBATION Discharge Diagnosis: Pneumonia Activity: Resume your previous activity Non-emergency contact: Primary Care Provider Call non-emergency contact if: you have any medication questions Follow-up/Referrals: Barbara Deng DO [Primary Care Provider] - 07/25/23 10:20 am (Follow up scheduled on 07/25/23 10:20) Diet: Carb Consistent or DM2 and Heart Healthy Diet Texture: Easy to Chew Addtl Attending Provider Instructions: Recommend close followup with PCP in 1-2 weeks. Start first dose of antibiotics tonight with dinner, continue to take this 12 hours apart with meals until you finsh the 4 tablets. On 07/15, you will start your prednisone taper. Pending Studies at Discharge: No Stand-Alone Forms: My [facility], Smoking Cessation Medications and DC Order Prescriptions: New metoprolol succinate 50 mg Tablet Extended Release 24 Hr 50 mg PO DAILY Qty: 30 0RF prednisone 5 mg tablet 5 mg PO DAILY Qty: 6 0RF Rx Instructions: Take 2 tablets for 2 days then 1 tablet for 2 days. cefuroxime axetil 500 mg tablet 500 mg PO BID Qty: 4 0RF Rx Instructions: Take first dose PM of 07/14/23 Continued ascorbic acid (vitamin C) 500 mg tablet 500 mg PO BID Qty: 60 0RF Rx Instructions: CONFIRMED ON [facility] DC SUMMARY 01/05 aripiprazole 30 mg tablet 30 mg PO DAILY Patient Comments: CONFIRMED ON [facility] DC SUMMARY 01/05 Rx Instructions: verified meds with PCP ipratropium-albuterol 0.5 mg-3 mg(2.5 mg base)/3 mL solution for nebulization 3 ml inhalation QID PRN (Reason: Shortness Of Breath Or Wheezing) Qty: 180 0RF (DME) OneTouch Ultra Test Strip See Rx Instructions .Route Qty: 100 2RF Rx Instructions: As directed; QID cholecalciferol (vitamin D3) 25 mcg (1,000 unit) tablet 25 mcg PO DAILY Qty: 30 0RF pantoprazole 40 mg tablet,delayed release (DR/EC) 40 mg PO DAILY Qty: 90 1RF (DME) insulin syringes (disposable) 1 mL syringe See Rx Instructions .ROUTE .MEDSUPPLY Qty: 500 1RF Rx Instructions: Test BS qid. Dx: E11.9 (DME) lancets [OneTouch Delica Lancets] 33 gauge misc See Rx Instructions .Route Qty: 500 1RF Rx Instructions: Test Glucose QID DX CODE: E11.9 cholecalciferol (vitamin D3) 50 mcg (2,000 unit) tablet 50 mcg PO DAILY Qty: 28 5RF levothyroxine 200 mcg tablet 200 mcg PO DAILY Qty: 28 5RF gabapentin 300 mg capsule 300 mg PO TID Qty: 270 1RF Trelegy Ellipta 100-62.5-25 mcg blister with device 1 inh inhalation DAILY Qty: 60 2RF Rx Instructions: [facility]FIRMED [facility] DC SUMMARY 01/05 cyclobenzaprine 10 mg tablet 10 mg PO BID PRN (Reason: muscle spasm) Qty: 60 1RF triamcinolone acetonide 0.025 % cream 1 applic topical DAILY PRN (Reason: rash) Qty: 80 0RF (DME) OneTouch Ultra Test Strip See Rx Instructions .Route Qty: 500 1RF Rx Instructions: Test glucose QID DX CODE: E11.9 Farxiga 10 mg tablet 10 mg PO DAILY Qty: 90 2RF nystatin 100,000 unit/gram powder 1 applic topical BID Qty: 180 1RF Victoza 3-Vargas 0.6 mg/0.1 mL (18 mg/3 mL) pen injector 1.8 mg subcut DAILY Qty: 9 3RF prazosin 1 mg capsule 3 mg PO QPM Rx Instructions: [facility]FIRMED [facility] DC SUMMARY 4 atorvastatin 20 mg tablet 20 mg PO DAILY Qty: 90 3RF clonazepam [Klonopin] 0.5 mg tablet See Rx Instructions .ROUTE .COMPLEX Rx Instructions: 1 tab BID and 2 tabs at HS.; CONFIRMED [facility] DC SUMMARY 01/05 insulin glargine [Lantus U-100 Insulin] 100 unit/mL solution 13 unit SQ QPM Qty: 10 0RF Rx Instructions: CONFIRMED [facility] DC SUMMARY 01/05 insulin lispro 100 unit/mL solution See Rx Instructions SQ QID Qty: 10 0RF Rx Instructions: prior to meal; BSg 0-110-0 units, 111-149 2 unit, 150-199 4 units, 200-249 6 units, 250-299 8 units, 300-349 10 units, 350-399 12 units, >400 call budesonide 0.5 mg/2 mL suspension for nebulization 0.25 mg inhalation BID PRN (Reason: Other) metolazone 5 mg tablet 5 mg PO DAILY PRN (Reason: Other) Rx Instructions: Take 1 tablet daily one hour before bumetanide until body weight is at baseline, then take only as needed. bumetanide 1 mg tablet 2 mg PO DAILY paroxetine HCl 10 mg tablet 40 mg PO DAILY Discontinued metoprolol succinate 25 mg tablet extended release 24 hr 25 mg PO DAILY Qty: 90 1RF Discharge Orders: Discharge Order (Routine); Ordered 07/14/23 Ordered By: Connor Dodd/Other Patient Handouts: What Is Heart Failure, Coping with Heart Failure, Heart Failure Dc, Oxygen Supplemental Admission Data Admit Date/Time: 07/08/23 15:31 Attending Provider: Connor Patel Admit Provider: Sergei Rosen Primary Care Provider: Barbara Deng Other Providers: Sergei Rosen Other Interventions: Discharge Summary Assessment (RN) Last Done: 07/14/23 10:20 Coding Level of Care Code 96986 INP/OBS DISCH >30 MIN Diagnoses Sepsis A41.9 (HFpEF) heart failure with preserved ejection fraction I50.30 Chronic obstructive pulmonary disease J44.9 COPD type: unspecified COPD Severe obstructive sleep apnea G47.33 Diabetes type 2, uncontrolled E11.65 Glycemic state: with hyperglycemia Candidal intertrigo B37.2
[2023-07-14] MEDS ORDERED: LANTUS PER UNIT CHARGE SC SCH (21:00)
== END 2023-07-14 11:21 | disposition home health service (06) | DRG 871 ==
LOC: ED 11:09 → EDINP 15:31 → SUATTDRO 15:31 → 2S 17:37
DX: Z79.85 Long-term (current) use of injectable non-insulin antidiabetic drugs; J96.12 Chronic respiratory failure with hypercapnia; Z79.890 Hormone replacement therapy; B37.2 Candidiasis of skin and nail; Z79.4 Long term (current) use of insulin; G47.33 Obstructive sleep apnea (adult) (pediatric); J44.1 Chronic obstructive pulmonary disease with (acute) exacerbation; Z88.2 Allergy status to sulfonamides; J96.11 Chronic respiratory failure with hypoxia; A41.9 Sepsis, unspecified organism; I50.32 Chronic diastolic (congestive) heart failure; Z22.322 Carrier or suspected carrier of Methicillin resistant Staphylococcus aureus; E87.29 Other acidosis; J69.0 Pneumonitis due to inhalation of food and vomit; E11.9 Type 2 diabetes mellitus without complications; E03.9 Hypothyroidism, unspecified; I11.0 Hypertensive heart disease with heart failure; Z87.891 Personal history of nicotine dependence

== ENCOUNTER 2024-09-07 09:18 | Observation (INO) ==
[2024-09-07 10:07] LABS: Hematocrit (blood only) 43.1 % (37.0-47.0); Hemoglobin 13.8 g/dl (12.0-16.0); Mean Corpuscular Hemoglobin 28.2 pg (25.0-34.0); Mean Corpuscular Volume 88.1 fL (80.0-100.0); Mean Platelet Volume 10.7 fL (9.4-12.4); Platelet Count 293 K/uL (130-400); RDW Coefficient of Variation 14.1 % (11.5-14.5); RDW Standard Deviation 45.6 fL (36.4-46.3); Red Blood Count 4.89 M/uL (4.20-5.40)
--- NOTE | 2024-09-07 10:19 | XRay Report ---
XR chest 1V portable CLINICAL HISTORY: CHF TECHNIQUE: Single frontal radiograph of the chest was obtained. Comparison: Comparison is made to chest radiograph 07/08/2023 FINDINGS: Exam is limited by underpenetration. Cardiomegaly is noted. The aortic arch is calcified. The lungs a re clear. No evidence of pleural effusion or pneumothorax. IMPRESSION: Cardiomegaly without evidence of pulmonary edema. ACT 112: Negative or not required by law. Electronically signed by: Gregor Nino M.D. 09/07/2024 10:17 AM
[2024-09-07 10:23] LABS: Basophils # (auto) 0.06 K/uL (0.00-0.20); Basophils % (auto) 0.4 %; Eosinophils # (auto) 0.11 K/uL (0.00-0.50); Eosinophils % (auto) 0.7 %; Immature Granulocytes # (auto) 0.06 K/uL (0.01-0.20); Immature Granulocytes % (auto) 0.4 %; Lymphocytes # (auto) 5.29 K/uL (1.20-3.40); Monocytes # (auto) 1.29 K/uL (0.11-0.59); Monocytes % (auto) 8.8 %; Neutrophils # (auto) 7.89 K/uL (1.40-6.50); Neutrophils % (auto) 53.7 %; RBC Morphology Unremarkable
[2024-09-07 10:52] LABS: BUN Creatinine Ratio 27.5 (10-20); Calcium 10.4 mg/dl (8.6-10.3); Creatinine Clr Calc Pharmacy 77.3 ml/min; Troponin I High Sensitivity 11.5 pg/ml (0-14)
[2024-09-07 11:07] LABS: Adenovirus PCR Not Detected (NotDetected); Bordetella parapertussis PCR Not Detected (NotDetected); Bordetella pertussis PCR Not Detected (NotDetected); Chlamydia pneumoniae PCR Not Detected (NotDetected); Coronavirus 229E PCR Not Detected (NotDetected); Coronavirus CoV-2 (COVID19)PCR Not Detected (NotDetected); Coronavirus HKU1 PCR Not Detected (NotDetected); Coronavirus NL63 PCR Not Detected (NotDetected); Coronavirus OC43PCR Not Detected (NotDetected); Human Metapneumovirus PCR Not Detected (NotDetected); Influenza A PCR Not Detected (NotDetected); Influenza B PCR Not Detected (NotDetected); Mycoplasma pneumoniae PCR Not Detected (NotDetected); Parainfluenza Virus 1 PCR Not Detected (NotDetected); Parainfluenza Virus 2 PCR Not Detected (NotDetected); Parainfluenza Virus 3 PCR Not Detected (NotDetected); Parainfluenza Virus 4 PCR Not Detected (NotDetected); Respiratory Syncytial VirusPCR Not Detected (NotDetected); Rhinovirus/Enterovirus PCR Not Detected (NotDetected)
[2024-09-07] MEDS: POTASSIUM CHLORIDE CRTAB 20 MEQ TABCR PO STA (11:42)
--- NOTE | 2024-09-07 11:56 | Emergency Department Note ---
Impression & Plan CHF exacerbation, Acute hypoxemic respiratory failure ED Provider Note NAME: CORDELIA REYES AGE: 59 SEX: F : 1965 ARRIVES VIA: Ambulance INFORMANT: Patient, ED PROVIDER(S): Kathy Alvarado MD CHIEF COMPLAINT: Shortness of breath HPI: This is a 59-year-old female present for shortness of breath. Patient was seen in PCPs office for worsening shortness of breath. She notes that she was having shortness of breath for the past few weeks. She went to [facility] the ER on Tuesday, 3 days ago, where she had negative bilateral lower extremity ultrasounds for DVT and negative CTA of the chest proceeded to have left lower extremity swelling and pain was diagnosed with cellulitis and sent home on antibiotics. She s otherwise she has had 20 pound weight gain in the past 3 weeks. She has followed with heart failure clinic here and has not taken Bumex today but has been taking it regularly. Ays has improved her swelling and pain as well as redness. With 2 days nasal cannula baseline. ROS: See above HPI for pertinent positives & negatives. A total of 10 systems reviewed and were otherwise negative. PAST MEDICAL HISTORY: See Below PAST SURGICAL HISTORY: See Below FAMILY HISTORY: See Below SOCIAL HISTORY: See Below HOME MEDICATIONS: See Below ALLERGIES: See Below VITALS: See Below PHYSICAL EXAMINATION: General: resting comfortably in no acute distress Head: Normocephalic and atraumatic Eyes: Normal inspection, extraocular muscles intact Ear, nose, throat: Normal external exam Neck: Normal range of motion Respiratory: lungs clear to auscultation bilaterally Cardiovascular: Regular rate/rhythm, no murmur GI: soft, nontender, no guarding or rebound Extremities: nontender, moves all extremities, bilateral extremity edema Neuro: The patient awake and alert, appropriately conversive, no focal deficits, symmetric faces Skin: Warm, dry, and intact MEDICAL DECISION MAKING: This is a 59-year-old female sent for shortness of breath. Consider CHF. PE and DVT ruled out about 3 days ago. Will do screening blood work at this time, chest x-ray. -Chest Xray independently interpreted by me showing cardiomegaly no pneumothorax, focal opacity, or pleural effusions. -Patient is hypokalemic at 3, hypochloremic with an elevated CO2. BUN is 25. -Patient likely is having signs of CHF clinically with weight gain. Bilateral extremities are swollen. No obvious signs of fluid on the x-ray however. -Upper respiratory panel negative -Patient will require admission at this time due to persistent symptoms -Discussed care with Dr. Goins for admission Differential diagnosis: CHF, pneumonia, PE, URI Diagnostics interpreted by me: ECG: None Cardiac Monitoring: An order was placed for continuous cardiac monitoring. The monitor shows a rate of 105 with sinus rhythm. Past Med/Surg History Problem List (Updated 09/08/24 @ 08:14 by Kathy Alvarado MD) Acute hypoxemic respiratory failure (Acute) CHF exacerbation (Acute) Acute on chronic respiratory failure with hypercapnia Cellulitis of left anterior lower leg Partial tear of right rotator cuff Type 2 diabetes, controlled, with neuropathy Seborrheic dermatitis Obesity (Chronic) B12 deficiency Diabetic neuropathy (HFpEF) heart failure with preserved ejection fraction NSTEMI (non-ST elevated myocardial infarction) Mixed hyperlipidemia Metabolic syndrome Right cervical radiculopathy Adhesive capsulitis of right shoulder Left knee DJD Osteoarthritis of right shoulder Chronic right shoulder pain Morbid obesity with BMI of 60.0-69.9, adult (Chronic) H/O: iron deficiency anemia Severe obstructive sleep apnea Chronic respiratory failure Obesity hypoventilation syndrome (Chronic) Mass of lung Urinary incontinence Knee osteoarthritis Essential tremor PTSD (post-traumatic stress disorder) Hypothyroidism (Chronic) Vitamin D deficiency (Chronic) Hypertension (Chronic) Hearing difficulty Fatty liver (Chronic) Depression (Chronic) Chronic obstructive pulmonary disease (Chronic) Arthritis Anxiety Allergic rhinitis Acne Acid reflux (Chronic) Medical History Candidal intertrigo Abnormal uterine bleeding Trochanteric bursitis of left hip Hypoxia Pneumonia Erythema of lower extremity Food sticks on swallowing Acute on chronic respiratory acidosis Acute exacerbation of chronic obstructive pulmonary disease Sepsis Chronic diastolic (congestive) heart failure Meckel's diverticulitis SBO (small bowel obstruction) Cellulitis Acute and chronic respiratory failure Elevated troponin COVID-19 Personal history of COVID-19 Hepatic encephalopathy Acute on chronic respiratory failure with hypoxia and hypercapnia Lung cancer Anemia H/O renal calculi H/O: pneumonia Surgical History Status post tracheostomy (11/25/21) H/O lithotripsy H/O prior ablation treatment Uterine.2005 H/O tympanostomy History of tonsillectomy Previous section History of adenoidectomy Family History Father Alcohol abuse Cardiac disorder Diabetes Gallbladder disease Hypertension Depression Mother Anxiety Depression Diabetes Hypertension Stroke Sister Breast cancer Depression Heart disease, congenital Rectal cancer Grandmother (Maternal) Lung disease Grandfather (Maternal) Heart disease Colorectal cancer Prostate cancer Denies family history of Ovarian cancer Myocardial infarction Social History Smoking Status: Former smoker Tobacco Type: Cigarettes Age Started Using Tobacco: 16; Age Quit Using Tobacco: 29; packs per day: 1; Second Hand Exposure: No; Do You Dip or Chew Tobacco: No; Hx Alcohol Use: No Hx Substance Use: No Preferred Language: Iranian Communication Ability: Effective Visual Impairment: Limited Hearing Ability: Hard of Hearing Head Of Marketing Required: No Beliefs That Will Affect Care: None marital status: Unknown Current Living Situation: Other Current Living Situation Comment: lives with 18/04 caregiver current occupational status: disabled Other Information That Helps Us Care for You: No Feels Safe at Home: Yes Safety Concerns: Feels Safe At This Time Childhood Exposure to Second-Hand Smoke: Yes Diet Comment: Tries to maintain healthy diet. caffeine: Yes (Tea x 2 cups a day.) during the past year weight has: decreased > 10 lbs Dental Care, Regularly: No Physical Activity Frequency: Does not Exercise Physical Activity Frequency Comment: Limited by physical condition Seatbelt Use: always Sunscreen Use: Yes Assistive Devices: Cane, CPAP, Hospital Bed, Oxygen - Continuous and Walker Allergies Allergies Allergy/AdvReac Type Severity Reaction Status Date / Time bupropion Allergy Unknown Hives Verified 08/14/24 10:14 Sulfa (Sulfonamide Allergy Unknown Hives Verified 08/14/24 10:14 Antibiotics) Home Meds Home Medications Medication Instructions Recorded Confirmed prazosin 1 mg capsule 3 mg PO QPM 01/12/22 09/07/24 quetiapine 25 mg tablet 50 mg PO UD 08/14/24 09/07/24 quetiapine 50 mg tablet,extended 50 mg PO UD 08/14/24 09/07/24 release 24 hr cephalexin 500 mg capsule 500 mg PO Q8H 09/07/24 09/07/24 desvenlafaxine succinate 25 mg 25 mg PO DAILY 09/07/24 09/07/24 tablet,extended release 24 hr prednisone 50 mg tablet 50 mg PO DAILY 09/07/24 09/07/24 tirzepatide 7.5 mg/0.5 mL 7.5 mg subcut WK 09/07/24 09/07/24 subcutaneous pen injector (Shyanne) Previous Rx's Medication Instructions Recorded ascorbic acid (vitamin C) 500 mg 500 mg PO BID #60 tabs 01/05/22 tablet blood sugar diagnostic (OneTouch #100 ea 03/26/22 Ultra Test strips) fluticasone fur. 100 mcg-umeclid 1 inh inhalation DAILY #60 ea 03/09/23 62.5 mcg-vilant 25 mcg inhalat.powder (Trelegy Ellipta) pen needle, diabetic 31 gauge x #100 ea 07/18/23 1/" (Comfort EZ Pen [place]) albuterol sulfate 90 mcg/actuation 2 puff inhalation Q6H PRN 07/19/23 aerosol inhaler shortness of breath or wheezing #18 grams nystatin 100,000 unit/gram topical 1 applic topical TID #30 grams 12/01/23 ointment insulin syringes (disposable) 1 mL #500 ea 01/25/24 metolazone 5 mg tablet 5 mg PO DAILY PRN Other #30 tabs 03/06/24 dapagliflozin propanediol 10 mg 10 mg PO DAILY #90 tabs 03/13/24 tablet (Farxiga) levothyroxine 200 mcg tablet 200 mcg PO DAILY #90 tabs 04/16/24 triamcinolone acetonide 0.025 % 1 applic topical DAILY PRN rash 05/02/24 topical cream #80 grams metoprolol succinate 50 mg 25 mg (1/2 x 50 mg) PO DAILY #90 05/31/24 tablet,extended release 24 hr tabs blood sugar diagnostic (OneTouch #500 ea 06/06/24 Ultra Test strips) lancets 33 gauge #500 ea 06/06/24 nystatin 100,000 unit/gram topical 1 applic topical BID #180 grams 06/06/24 powder clotrimazole-betamethasone 1 1 applic topical BID 2 weeks #45 06/14/24 %-0.05 % topical cream grams diclofenac sodium 1 % topical gel 2 g topical QID #100 grams 06/14/24 cholecalciferol (vitamin D3) 50 50 mcg PO DAILY #28 tabs 07/13/24 mcg (2,000 unit) tablet pantoprazole 40 mg tablet,delayed 40 mg PO BID #180 tabs 07/13/24 release cyclobenzaprine 10 mg tablet 10 mg PO BID PRN muscle spasm #60 08/01/24 tabs bumetanide 1 mg tablet 4 mg (4 x 1 mg) PO DAILY #360 tabs 08/13/24 gabapentin 300 mg capsule 300 mg PO TID #90 caps 08/14/24 ketoconazole 2 % shampoo 1 applic topical Q14D #120 mL 08/30/24 amlodipine 2.5 mg tablet 2.5 mg PO DAILY #30 tabs 09/06/24 atorvastatin 20 mg tablet 20 mg PO DAILY #90 tabs 09/06/24 famotidine 40 mg tablet 40 mg PO HS #30 tabs 09/06/24 budesonide 0.5 mg/2 mL suspension 0.25 mg inhalation BID PRN Other 09/07/24 for nebulization #180 mL ipratropium 0.5 mg-albuterol 3 mg 3 ml inhalation QID PRN Shortness 09/07/24 (2.5 mg base)/3 mL nebulization Of Breath Or Wheezing #180 mL soln Results & Data (ED) Vital Signs Vital Signs - 24 hr 09/07/24 09:25 09/07/24 10:16 09/07/24 11:00 Temperature 36.6 C Temperature Source Oral Pulse Rate 103 H 103 H 100 H Respiratory Rate 20 19 Respiratory Effort / Characteristics Non-Labored Spontaneous Respiratory Depth Normal Blood Pressure 183/122 H 130/87 Blood Pressure Mean 142 101 Blood Pressure Position Lying Pulse Oximetry 99 98 Oxygen Delivery Method Nasal Cannula Nasal Cannula Oxygen Flow Rate 2 2 Sepsis Recent Fever Within 48 Hours No Sepsis New/Unexplained Change in Mental Status N/A Sepsis Action Taken by Nursing No Action Required 09/07/24 11:00 09/07/24 11:30 09/07/24 12:06 Temperature Temperature Source Pulse Rate 102 H 101 H 103 H Respiratory Rate 20 18 24 Respiratory Effort / Characteristics Respiratory Depth Blood Pressure 130/87 132/87 114/70 Blood Pressure Mean 100 106 84 Blood Pressure Position Pulse Oximetry 99 99 98 Oxygen Delivery Method Nasal Cannula Nasal Cannula Nasal Cannula Oxygen Flow Rate 2 2 2 Sepsis Recent Fever Within 48 Hours Sepsis New/Unexplained Change in Mental Status Sepsis Action Taken by Nursing 09/07/24 12:31 09/07/24 13:00 Temperature Temperature Source Pulse Rate 107 H 104 H Respiratory Rate 20 20 Respiratory Effort / Characteristics Respiratory Depth Blood Pressure 119/72 132/93 Blood Pressure Mean 95 102 Blood Pressure Position Pulse Oximetry 97 96 Oxygen Delivery Method Nasal Cannula Nasal Cannula Oxygen Flow Rate 2 2 Sepsis Recent Fever Within 48 Hours Sepsis New/Unexplained Change in Mental Status Sepsis Action Taken by Nursing Laboratory Data 09/08/24 05:56 09/08/24 05:56 Lab Results 09/07/24 09/07/24 Range/Units 09:38 10:05 WBC 14.70 H (4.8-10.8) K/ul RBC 4.89 (4.20-5.40) M/uL Hgb 13.8 (12.0-16.0) g/dl Hct 43.1 (37.0-47.0) % MCV 88.1 (80.0-100.0) fL MCH 28.2 (25.0-34.0) pg MCHC 32.0 (32.0-36.0) g/dL RDW Std Deviation 45.6 (36.4-46.3) fL RDW Coeff of Carol 14.1 (11.5-14.5) % Plt Count 293 (130-400) K/uL MPV 10.7 (9.4-12.4) fL Immature Gran % (Auto) 0.4 % Neut % (Auto) 53.7 % Lymph % (Auto) 36.0 % [place] % (Auto) 8.8 % Eos % (Auto) 0.7 % Baso % (Auto) 0.4 % Neut # (Auto) 7.89 H (1.40-6.50) K/uL Lymph # (Auto) 5.29 H (1.20-3.40) K/uL [place] # (Auto) 1.29 H (0.11-0.59) K/uL Eos # (Auto) 0.11 (0.00-0.50) K/uL Baso # (Auto) 0.06 (0.00-0.20) K/uL Immature Gran # (Auto) 0.06 (0.01-0.20) K/uL RBC Morphology Unremarkable PT 10.5 (9.0-12.0) Seconds INR 1.0 (0.9-1.1) APTT 26 (21-31) Seconds PTT Ratio 1.0 D-Dimer 340 (0-500) ug/L FEU Sodium 137 (136-145) mmol/L Potassium 3.0 L (3.5-5.1) mmol/L Chloride 82 L (98-107) mmol/L Carbon Dioxide 45 H* (21-32) mmol/L Anion Gap 10 (3-11) BUN 25 H (6-23) mg/dl Creatinine 0.91 (0.6-1.2) mg/dl Est Cr Clr Drug Dosing 77.3 ml/min eGFR 71.78 BUN/Creatinine Ratio 27.5 H (10-20) Glucose 177 H (70-99(Fasting)) mg/dl Calcium 10.4 H (8.6-10.3) mg/dl Troponin I High Sens 11.5 (0-14) pg/ml B-Natriuretic Peptide 32 (0-100) pg/ml Adenovirus (PCR) Not Detected (NotDetected) B. pertussis DNA (PCR) Not Detected (NotDetected) B.parapertussis DNA PCR Not Detected (NotDetected) C. pneumoniae DNA (PCR) Not Detected (NotDetected) Coronavirus OC43 (PCR) Not Detected (NotDetected) Coronavirus HKU1 (PCR) Not Detected (NotDetected) Coronavirus 229E (PCR) Not Detected (NotDetected) SARS-CoV-2 (PCR) Not Detected (NotDetected) Coronavirus NL63 (PCR) Not Detected (NotDetected) Human Metapneumovir PCR Not Detected (NotDetected) Influenza Type A (PCR) Not Detected (NotDetected) Influenza Type B (PCR) Not Detected (NotDetected) M. pneumoniae (PCR) Not Detected (NotDetected) Parainfluenza 1 (PCR) Not Detected (NotDetected) Parainfluenza 2 (PCR) Not Detected (NotDetected) Parainfluenza 3 (PCR) Not Detected (NotDetected) Parainfluenza 4 (PCR) Not Detected (NotDetected) RSV (PCR) Not Detected (NotDetected) Entero/Rhino (PCR) Not Detected (NotDetected) Administered Medications Atorvastatin Calcium (Atorvastatin 20 Mg Tab) 20 mg PO DAILY [facility] Stop: 10/08/24 08:59 Last Admin: 09/08/24 08:02 Dose: 20 mg Documented By: JASMYN Cephalexin HCl (Cephalexin 500 Mg Cap) 500 mg PO Q8H [facility]; Protocol Stop: 09/14/24 16:59 Last Admin: 09/08/24 08:03 Dose: 500 mg Documented By: Admin: 09/08/24 01:46 Dose: 500 mg Documented By: Admin: 09/07/24 18:04 Dose: 500 mg Documented By: JASMYN Diclofenac Sodium (Diclofenac Sod 1% Gel 100 Gm Tube) 2 gm EXT QID [facility]; Protocol Stop: 10/07/24 20:59 Last Admin: 09/08/24 08:04 Dose: 2 gm Documented By: Admin: 09/07/24 20:09 Dose: 2 gm Documented By: BRAYAN Enoxaparin Sodium (Enoxaparin Inj 40 Mg/0.4 Ml Syr) 40 mg SQ Q24H [facility] Stop: 10/07/24 20:59 Last Admin: 09/07/24 20:08 Dose: 40 mg Documented By: BRAYAN Famotidine (Famotidine 40 Mg Tablet) 40 mg PO HS [facility] Stop: 10/07/24 20:59 Last Admin: 09/07/24 20:08 Dose: 40 mg Documented By: BRAYAN Gabapentin (Gabapentin 300 Mg Cap) 300 mg PO TID [facility] Stop: 10/07/24 16:08 Last Admin: 09/08/24 08:05 Dose: 300 mg Documented By: Admin: 09/07/24 20:08 Dose: 300 mg Documented By: Admin: 09/07/24 16:40 Dose: 300 mg Documented By: JASMYN Bumetanide 4 mg/ Syringe 16 mls @ 4 mls/min IV BID@0900,1700 [facility] Stop: 10/07/24 18:04 Last Admin: 09/07/24 18:30 Dose: 4 mls/min Documented By: JASMYN Insulin Aspart (Insulin Aspart Per Unit Charge) 0 units SC ACHS [facility] Stop: 10/07/24 16:29 Last Admin: 09/07/24 21:28 Dose: 1 units Documented By: BRAYAN Co-signed By: NAPOLEON Admin: 09/07/24 18:03 Dose: 9 units Documented By: JASMYN Co-signed By: TRIPP Levothyroxine Sodium (Levothyroxine Sodium 200 Mcg Tablet) 200 mcg PO DAILYBB [facility] Stop: 10/08/24 06:29 Last Admin: 09/08/24 05:05 Dose: 200 mcg Documented By: BRAYAN Metolazone (Metolazone 5 Mg Tablet) 5 mg PO Q24H [facility] Stop: 10/08/24 06:59 Last Admin: 09/08/24 08:02 Dose: 5 mg Documented By: JASMYN Miconazole Nitrate (Miconazole Nitrate Powder 85 Gm) 1 appln EXT PRN PRN PRN Reason: Affected Skin Folds Stop: 10/07/24 16:14 Last Admin: 09/07/24 18:05 Dose: 1 appln Documented By: JASMYN Miscellaneous (Desvenlafaxine Succinate 25 Mg Tablet Extended Release 24 Hr--Order Awaiting Action) 1 each N/A QS [facility] Stop: 10/08/24 00:00 Last Admin: 09/08/24 08:02 Dose: Not Given Documented By: Admin: 09/07/24 22:03 Dose: Not Given Documented By: BRAYAN Pantoprazole Sodium (Pantoprazole 40 Mg Tab) 40 mg PO BID [facility] Stop: 10/07/24 20:59 Last Admin: 09/08/24 08:05 Dose: 40 mg Documented By: Admin: 09/07/24 20:08 Dose: 40 mg Documented By: BRAYAN Prazosin HCl (Prazosin Hcl 1 Mg Cap) 3 mg PO QPM [facility] Stop: 10/07/24 20:59 Last Admin: 09/07/24 20:08 Dose: 3 mg Documented By: BRAYAN Quetiapine Fumarate (Quetiapine Fumarate 50 Mg Tabcr) 50 mg PO [facility] Stop: 10/07/24 20:59 Last Admin: 09/07/24 20:08 Dose: 50 mg Documented By: BRAYAN Quetiapine Fumarate (Quetiapine Fumarate 25 Mg Tablet) 50 mg PO [facility] Stop: 10/07/24 20:59 Last Admin: 09/07/24 20:08 Dose: 50 mg Documented By: BRAYAN Discontinued Medications Bumetanide 1 mg/ Syringe 4 mls @ 4 mls/min IV ONE ONE Stop: 09/07/24 11:40 Last Admin: 09/07/24 12:17 Dose: 4 mls/min Documented By: KYLEIGH Potassium Chloride (Potassium Chloride Crtab 20 Meq Tabcr) 40 meq PO NOW STA Stop: 09/07/24 11:36 Last Admin: 09/07/24 11:42 Dose: 40 meq Documented By: KYLEIGH Imaging Data Radiologist's Impression: Chest X-Ray 09/07/24 09:54 XR chest 1V portable CLINICAL HISTORY: CHF TECHNIQUE: Single frontal radiograph of the chest was obtained. Comparison: Comparison is made to chest radiograph 07/08/2023 FINDINGS: Exam is limited by underpenetration. Cardiomegaly is noted. The aortic arch is calcified. The lungs are clear. No evidence of pleural effusion or pneumothorax. IMPRESSION: Cardiomegaly without evidence of pulmonary edema. ACT 112: Negative or not required by law. Electronically signed by: Gregor Nino M.D. 09/07/2024 10:17 AM Discharge Plan Visit Data Chief Complaint: Shortness of Breath/Dyspnea Stated Complaint: SOB, L LEG CELLULITIS ED Provider: Kathy Alvarado Discharge Problem: CHF exacerbation, Acute hypoxemic respiratory failure Patient Disposition: Admitted As Inpatient Discharge Instructions Interventions: ED Discharge Assessment Last Done: 09/07/24 16:00
[2024-09-07] MEDS: BUMETANIDE 1 MG in SYRINGE 0 ML IV ONE (12:17)
[2024-09-07 13:18] LABS: Base Excess VBG 22.2 mEq/L; HCO3 VBG 49 mmol/L; Oxygen Saturation VBG 84.2 %; PCO2 VBG 60 mmHg (38-50); PO2 VBG 49 mmHg; pH VBG 7.52 (7.36-7.41)
--- NOTE | 2024-09-07 13:22 | History & Physical Report ---
Date of Service September 07, 2024 Assessment & Plan (1) Acute and chronic respiratory failure with hypoxia: Plan: Worsening SOB x 5 days, was seen at [facility] ED, home with antibiotics and prednisone for presumed lower extremity cellulitis. Shortness of breath has been improving since then, as well as lower extremity edema. No coughing, fever, chest pain, or palpitations. On 2L O2 via NC at baseline. Chronically hypercapnic but not acutely worse than usual Combination of HFpEF, obesity hypoventilation syndrome, and COPD - Admit - Currently 2L O2 via NC, satting 97% - O2 as needed, wean as patient tolerates back to baseline (2L) - CBC with leukocytosis, neutrophil predominant- Likely secondary to recent steroid use, however will continue to follow this finding; no current signs of infection to include LLE finding; has been on multiple days of abx (start 09/04) - CMP potassium 3.0 (replaced with KCl in ED), chloride 82, carbon dioxide 45, BUN 25, BUN/creatinine ratio 27.5, glucose 117, calcium 10.4 - Troponin 11.5, BNP 32 - VBGs pH 7.52, pCO2 60, pO2 49, HCO3 49 - Procal < 0.02 - Pending PT/INR - BioFire negative; CXR cardiomegaly without evidence of pulmonary edema - Pending report from [facility] from patient's recent visit to compare to current findings - CBC a.m., BMP a.m., VBG's a.m. (2) Acute on chronic respiratory failure with hypercapnia: (3) Acute on chronic heart failure with preserved ejection fraction (HFpEF): Plan: H/o HFpEF, follows with heart failure clinic; presenting with SOB; overall euvolemic on exam- unlikely this main cause of the patient's symptoms at this time, however we will continue outpatient medications -Has increased weight; 20 pounds in the past 3 weeks; daily weights standing - I+Os - Echo 06/2024- LV systolic show normal, EF 6065%, mild concentric LVH, mild to moderate valvular AAS, mild AR, mild MR, RVSP 30 to 45%, no pericardial effusion - BNP 32 - CXR without acute findings or pulmonary edema - Troponin 11.5 - Metoprolol, bumetanide, metolazone- continue - Bumetanide as scheduled, metolazone changed to scheduled - Promote leg elevation (4) Chronic obstructive pulmonary disease: Plan: H/o COPD, previous smoker - Utilizes 2L O2 at baseline, currently on 2 L satting 97%- continue - No evidence of exacerbation today, actually feels as though she is improving w/ breathing but continues to remain hypoxic - Continue home meds (5) Type 2 diabetes, controlled, with neuropathy: Plan: H/o DMT2 - At home regimen dapagliflozin, Mounjaro- HOLD - Most recent A1C .2023 @ 5.5% - SSI with target BSG range 110-140mg/dL, CF 20, carb ratio 10 - T2DM diet - BSG ACHS - Adjust regimen as needed - Pharm glycemic management consulted (6) Cellulitis of left anterior lower leg: Plan: No h/o animal/human bites; Started on Cephalexin from different ED as well as prednisone Not appearing as classic cellulitis HOWEVER pt has had multiple doses of Abx so there is a chance what is being evaluated here is a half treated cellulitis - Continue cephalexin total duration 7 days (Started 09/04) - Wound care prn Plan Chronic: Hypothyroid- levothyroxine HLD- atorvastatin HTN- amlodipine, metoprolol GERD- famotidine, pantoprazole Depression and anxiety- quetiapine, desvenlafaxine BOBBI- BiPAP HS Dispo: Admit Diet: Heart healthy, T2DM VTE Prophylaxis: Lovenox Code: Full Admission and Anticipated Discharge Date Admission Date: 09/07/2024 History of Present Illness Chief Complaint: SOB Primary Care Provider: Barbara Deng DO 59-year-old female presenting to ED for via EMS for worsening SOB. ED course: CBC WBC 14.70, neutrophil predominant 7.89, lymphocytes 5.29, monocytes 1.29; BMP potassium 3.0, chloride 82, carbon dioxide 45, BUN 25, BUN/creatinine ratio 27.5, glucose 177, calcium 10.4; troponin 11.5; BNP 32; BioFire negative; CXR cardiomegaly without evidence of pulmonary edema; EKG sinus tach, premature supraventricular complexes, rate 104, CT 162, QRS 80, QT/QTc 340/457. On 2 L O2 at baseline.; Provided with bumetanide + KCl in ED. Patient 59 female PMHx COPD, HFpEF, chronic respiratory failure with hypoxia and hypercapnia, patient cell lung cancer, anemia, obesity, metabolic syndrome, severe BOBBI, hypothyroidism, depression, fatty liver, and anxiety presenting for worsening shortness of breath. States that 5 days ago she noticed worsening shortness of breath, that worsened 4 days ago. Had weaned herself and had a 20 pound weight gain over the course of 3 weeks, as well as edema in bilateral lower extremities. 3 days [employer] she states that symptoms were afterwards, she had the worst shortness of breath and had worsening edema to the point where she was unable to get her pants over her legs. Went to [facility] in [place] who diagnosed her with cellulitis, providing her with antibiotic (cephalexin), and prednisone. Patient has been taking these medications as prescribed. States that she did make an appointment and saw her PCP the day of arrival who recommended that she go to ED for further evaluation. Patient states that overall the shortness of breath has been improving since going to the ED days ago, and she feels her swelling has gone down some. Has been taking diuretics as prescribed. Is not having any coughing or sputum production. Has chest pressure while coughing. Does admit to constipation very hard BM last evening. Denying current chest pain, palpitations, abdominal pain, N/V/D, urinary symptoms, numbness/tingling, fever/chills or syncopal episodes. Took a.m. medications. Please see Dr. Goins's attestation for adjustments/additions to treatment plan. Allergies Allergy/AdvReac Type Severity Reaction Status Date / Time bupropion Allergy Unknown Hives Verified 08/14/24 10:14 Sulfa (Sulfonamide Allergy Unknown Hives Verified 08/14/24 10:14 Antibiotics) Home Medications Medication Instructions Recorded Confirmed Type ascorbic acid (vitamin C) 500 mg 500 mg PO BID #60 tabs 01/05/22 09/07/24 Rx tablet prazosin 1 mg capsule 3 mg PO QPM 01/12/22 09/07/24 History blood sugar diagnostic (OneTouch #100 ea 03/26/22 09/07/24 Rx Ultra Test strips) fluticasone fur. 100 mcg-umeclid 1 inh inhalation DAILY #60 ea 03/09/23 09/07/24 Rx 62.5 mcg-vilant 25 mcg inhalat.powder (Trelegy Ellipta) pen needle, diabetic 31 gauge x #100 ea 07/18/23 09/07/24 Rx 1/4" (Comfort EZ Pen [place]) albuterol sulfate 90 mcg/actuation 2 puff inhalation Q6H PRN 07/19/23 09/07/24 Rx aerosol inhaler shortness of breath or wheezing #18 grams nystatin 100,000 unit/gram topical 1 applic topical TID #30 grams 12/01/23 09/07/24 Rx ointment insulin syringes (disposable) 1 mL #500 ea 01/25/24 09/07/24 Rx metolazone 5 mg tablet 5 mg PO DAILY PRN Other #30 tabs 03/06/24 09/07/24 Rx dapagliflozin propanediol 10 mg 10 mg PO DAILY #90 tabs 03/13/24 09/07/24 Rx tablet (Farxiga) levothyroxine 200 mcg tablet 200 mcg PO DAILY #90 tabs 04/16/24 09/07/24 Rx triamcinolone acetonide 0.025 % 1 applic topical DAILY PRN rash 05/02/24 09/07/24 Rx topical cream #80 grams metoprolol succinate 50 mg 25 mg (1/2 x 50 mg) PO DAILY #90 05/31/24 09/07/24 Rx tablet,extended release 24 hr tabs blood sugar diagnostic (OneTouch #500 ea 06/06/24 09/07/24 Rx Ultra Test strips) lancets 33 gauge #500 ea 06/06/24 09/07/24 Rx nystatin 100,000 unit/gram topical 1 applic topical BID #180 grams 06/06/24 09/07/24 Rx powder clotrimazole-betamethasone 1 1 applic topical BID 2 weeks #45 06/14/24 09/07/24 Rx %-0.05 % topical cream grams diclofenac sodium 1 % topical gel 2 g topical QID #100 grams 06/14/24 09/07/24 Rx cholecalciferol (vitamin D3) 50 50 mcg PO DAILY #28 tabs 07/13/24 09/07/24 Rx mcg (2,000 unit) tablet pantoprazole 40 mg tablet,delayed 40 mg PO BID #180 tabs 07/13/24 09/07/24 Rx release cyclobenzaprine 10 mg tablet 10 mg PO BID PRN muscle spasm #60 08/01/24 09/07/24 Rx tabs bumetanide 1 mg tablet 4 mg (4 x 1 mg) PO DAILY #360 tabs 08/13/24 09/07/24 Rx gabapentin 300 mg capsule 300 mg PO TID #90 caps 08/14/24 09/07/24 Rx quetiapine 25 mg tablet 50 mg PO UD 08/14/24 09/07/24 History quetiapine 50 mg tablet,extended 50 mg PO UD 08/14/24 09/07/24 History release 24 hr ketoconazole 2 % shampoo 1 applic topical Q14D #120 mL 08/30/24 09/07/24 Rx amlodipine 2.5 mg tablet 2.5 mg PO DAILY #30 tabs 09/06/24 09/07/24 Rx atorvastatin 20 mg tablet 20 mg PO DAILY #90 tabs 09/06/24 09/07/24 Rx famotidine 40 mg tablet 40 mg PO HS #30 tabs 09/06/24 09/07/24 Rx budesonide 0.5 mg/2 mL suspension 0.25 mg inhalation BID PRN Other 09/07/24 09/07/24 Rx for nebulization #180 mL cephalexin 500 mg capsule 500 mg PO Q8H 09/07/24 09/07/24 History desvenlafaxine succinate 25 mg 25 mg PO DAILY 09/07/24 09/07/24 History tablet,extended release 24 hr ipratropium 0.5 mg-albuterol 3 mg 3 ml inhalation QID PRN Shortness 09/07/24 09/07/24 Rx (2.5 mg base)/3 mL nebulization Of Breath Or Wheezing #180 mL soln prednisone 50 mg tablet 50 mg PO DAILY 09/07/24 09/07/24 History tirzepatide 7.5 mg/0.5 mL 7.5 mg subcut WK 09/07/24 09/07/24 History subcutaneous pen injector (Mounjaro) Past Med/Surg History Problem List (Updated 09/08/24 @ 11:11 by Jorje Goins MD) Acute and chronic respiratory failure with hypoxia Acute on chronic heart failure with preserved ejection fraction (HFpEF) Acute hypoxemic respiratory failure (Acute) CHF exacerbation (Acute) Acute on chronic respiratory failure with hypercapnia Cellulitis of left anterior lower leg Partial tear of right rotator cuff Type 2 diabetes, controlled, with neuropathy Seborrheic dermatitis Obesity (Chronic) B12 deficiency Diabetic neuropathy (HFpEF) heart failure with preserved ejection fraction NSTEMI (non-ST elevated myocardial infarction) Mixed hyperlipidemia Metabolic syndrome Right cervical radiculopathy Adhesive capsulitis of right shoulder Left knee DJD Osteoarthritis of right shoulder Chronic right shoulder pain Morbid obesity with BMI of 60.0-69.9, adult (Chronic) H/O: iron deficiency anemia Severe obstructive sleep apnea Chronic respiratory failure Obesity hypoventilation syndrome (Chronic) Mass of lung Urinary incontinence Knee osteoarthritis Essential tremor PTSD (post-traumatic stress disorder) Hypothyroidism (Chronic) Vitamin D deficiency (Chronic) Hypertension (Chronic) Hearing difficulty Fatty liver (Chronic) Depression (Chronic) Chronic obstructive pulmonary disease (Chronic) Arthritis Anxiety Allergic rhinitis Acne Acid reflux (Chronic) Medical History Candidal intertrigo Abnormal uterine bleeding Trochanteric bursitis of left hip Hypoxia Pneumonia Erythema of lower extremity Food sticks on swallowing Acute on chronic respiratory acidosis Acute exacerbation of chronic obstructive pulmonary disease Sepsis Chronic diastolic (congestive) heart failure Meckel's diverticulitis SBO (small bowel obstruction) Cellulitis Acute and chronic respiratory failure Elevated troponin COVID-19 Personal history of COVID-19 Hepatic encephalopathy Acute on chronic respiratory failure with hypoxia and hypercapnia Lung cancer Anemia H/O renal calculi H/O: pneumonia Surgical History Status post tracheostomy (11/25/21) H/O lithotripsy H/O prior ablation treatment Uterine.2005 H/O tympanostomy History of tonsillectomy Previous section History of adenoidectomy Family History Father Alcohol abuse Cardiac disorder Diabetes Gallbladder disease Hypertension Depression Mother Anxiety Depression Diabetes Hypertension Stroke Sister Breast cancer Depression Heart disease, congenital Rectal cancer Grandmother (Maternal) Lung disease Grandfather (Maternal) Heart disease Colorectal cancer Prostate cancer Denies family history of Ovarian cancer Myocardial infarction Social History Smoking Status: Former smoker Tobacco Type: Cigarettes Age Started Using Tobacco: 16; Age Quit Using Tobacco: 29; packs per day: 1; Second Hand Exposure: No; Do You Dip or Chew Tobacco: No; Hx Alcohol Use: No Hx Substance Use: No Preferred Language: Tamazight Communication Ability: Effective Visual Impairment: Limited Hearing Ability: Hard of Hearing Chief Wellness Officer Required: No Beliefs That Will Affect Care: None marital status: Unknown Current Living Situation: Other Current Living Situation Comment: lives with /7 caregiver current occupational status: disabled Other Information That Helps Us Care for You: No Feels Safe at Home: Yes Safety Concerns: Feels Safe At This Time Childhood Exposure to Second-Hand Smoke: Yes Diet Comment: Tries to maintain healthy diet. caffeine: Yes (Tea x 2 cups a day.) during the past year weight has: decreased > 10 lbs Dental Care, Regularly: No Physical Activity Frequency: Does not Exercise Physical Activity Frequency Comment: Limited by physical condition Seatbelt Use: always Sunscreen Use: Yes Assistive Devices: Cane, CPAP, Hospital Bed, Oxygen - Continuous and Walker Review of Systems 2 Review of Systems: All systems reviewed & are unremarkable except as noted in Subjective Physical Exam 2 Physical Exam: General: No acute distress Skin: Warm and dry; erythematous area to left lower extremity, lateral aspect of calf, without open areas, oozing, or streaking. Not warm to touch Head: Normocephalic, atraumatic Eyes: PERRL, conjunctivae clear, sclera non-icteric ENT: External ear and ear canal without swelling; nose atraumatic Neck: Supple, no LAD; no JVD Cardio: Tachycardia, regular rhythm, no M/G/R, S1 and S2 normal Resp: No respiratory distress, Lungs CTA in all lobes bilaterally, no wheezes, rales, or rhonchi; utilizing O2 via NC Abdomen: Soft, symmetric, nontender; no masses or hepatosplenomegaly; Bowel sounds normoactive MSK: No deformities, full ROM throughout; pulses palpable and equal; trace pitting edema bilateral lower extremities. Neuro: Awake, alert; CN intact Psych: Appropriate mood and affect; good judgement and insight. Results & Data Results & Data Vital Signs (Past 12 Hours) Vital Signs Temp Pulse Resp BP Pulse Ox O2 Del Method O2 Flow Rate 09/07/24 12:31 107 H 20 119/72 97 Nasal Cannula 2 09/07/24 12:06 103 H 24 114/70 98 Nasal Cannula 2 09/07/24 11:30 101 H 18 132/87 99 Nasal Cannula 2 09/07/24 11:00 102 H 20 130/87 99 Nasal Cannula 2 09/07/24 11:00 100 H 19 130/87 98 Nasal Cannula 2 09/07/24 10:16 103 H 09/07/24 09:25 36.6 C 103 H 20 183/122 H 99 Nasal Cannula 2 Laboratory Results 09/07/24 09/07/24 10:05 09:38 WBC 14.70 H RBC 4.89 Hgb 13.8 Hct 43.1 MCV 88.1 MCH 28.2 MCHC 32.0 RDW Std Deviation 45.6 RDW Coeff of Carol 14.1 Plt Count 293 MPV 10.7 Immature Gran % (Auto) 0.4 Neut % (Auto) 53.7 Lymph % (Auto) 36.0 Aurora % (Auto) 8.8 Eos % (Auto) 0.7 Baso % (Auto) 0.4 Neut # (Auto) 7.89 H Lymph # (Auto) 5.29 H Aurora # (Auto) 1.29 H Eos # (Auto) 0.11 Baso # (Auto) 0.06 Immature Gran # (Auto) 0.06 RBC Morphology Unremarkable Sodium 137 Potassium 3.0 L Chloride 82 L Carbon Dioxide 45 H* Anion Gap 10 BUN 25 H Creatinine 0.91 Est Cr Clr Drug Dosing 77.3 eGFR 71.78 BUN/Creatinine Ratio 27.5 H Glucose 177 H Calcium 10.4 H Troponin I High Sens 11.5 B-Natriuretic Peptide 32 Adenovirus (PCR) Not Detected B. pertussis DNA (PCR) Not Detected B.parapertussis DNA PCR Not Detected C. pneumoniae DNA (PCR) Not Detected Coronavirus OC43 (PCR) Not Detected Coronavirus HKU1 (PCR) Not Detected Coronavirus 229E (PCR) Not Detected SARS-CoV-2 (PCR) Not Detected Coronavirus NL63 (PCR) Not Detected Human Metapneumovir PCR Not Detected Influenza Type A (PCR) Not Detected Influenza Type B (PCR) Not Detected M. pneumoniae (PCR) Not Detected Parainfluenza 1 (PCR) Not Detected Parainfluenza 2 (PCR) Not Detected Parainfluenza 3 (PCR) Not Detected Parainfluenza 4 (PCR) Not Detected RSV (PCR) Not Detected Entero/Rhino (PCR) Not Detected Diagnostic Findings Chest X-Ray 09/07/24 09:54 XR chest 1V portable CLINICAL HISTORY: CHF TECHNIQUE: Single frontal radiograph of the chest was obtained. Comparison: Comparison is made to chest radiograph 07/08/2023 FINDINGS: Exam is limited by underpenetration. Cardiomegaly is noted. The aortic arch is calcified. The lungs are clear. No evidence of pleural effusion or pneumothorax. IMPRESSION: Cardiomegaly without evidence of pulmonary edema. ACT 112: Negative or not required by law. Electronically signed by: Gregor Nino M.D. 09/07/2024 10:17 AM ECG Additional Comments: EKG sinus tach, premature supraventricular complexes, rate 104 CT 162, QRS 80, QT/QTc 340/457 Code Status & VTE Plan Code Status Full VTE Prophylaxis Plan VTE Prophylaxis will be ordered: Yes Supervising Physician Co-Signing Physician Notes I personally saw and examined the patient. I independently reviewed the labs, EKG, imaging, problem list, medication list, past medical history and family history. I verified all luna points and agree with Jaquan Guan PA-C with the following exceptions and/or additions: 59 year old female presents to the ER with weight gain, shortness of breath and hypoxia. Recent diagnosis of cellulitis currently on Keflex with some improvement O/E A&Ox3, morbidly obese, HS RRR, no murmurs, Chest CTAB, no wheezing, Abdo SNT, 1+ pedal edema b/l equal A/P Acute respiratory failure with hypoxia - chronic hypercapnia no worse than usual but now hypoxic. ?more of a chronic issue with obesity hypoventilation / BOBBI and COPD - I'm unclear if she is much worse than her baseline but will trial treatment for HF given lack of alternative etiology found. No PE from CT from [place] recently. Possible acute on chronic HFpEF - Trial diuresis with metolazone and bumex increase to 4mg IV BID, monitor I&Os, daily weight and renal function closely Possible cellulitis - currently appearance more consistent with venous insufficiency however may be partially treated cellulitis, will finish up her previously prescribed Keflex course PG Care Time/CCT Total # of Minutes Spent Total Time Spent with Patient: Total time spent is greater than 50% in coordination of care (as documented) at patient's floor/unit and/or counseling patient: Coding Level of Care Code 51140 INT INP/OBS CARE MIN Diagnoses Acute and chronic respiratory failure with hypoxia J96.21 Acute on chronic respiratory failure with hypercapnia J96.22 Acute on chronic heart failure with preserved ejection fraction (HFpEF) I50.33 Chronic obstructive pulmonary disease J44.9 COPD type: unspecified COPD Type 2 diabetes, controlled, with neuropathy E11.40 Cellulitis of left anterior lower leg L03.116 Time Spent (min) 65 (4) Chronic obstructive pulmonary disease COPD type: unspecified COPD Qualified Code(s): J44.9 - Chronic obstructive pulmonary disease, unspecified
[2024-09-07 13:39] LABS: D Dimer 340 ug/L FEU (0-500); Partial Thromboplastin Time 26 Seconds (21-31); Prothrombin Time 10.5 Seconds (9.0-12.0)
[2024-09-07] MEDS ORDERED: CARBOHYDRATES FOR HYPOGLYCEMIA PO PRN (16:09)
[2024-09-07] MEDS ORDERED: SENNA 8.6 MG TAB PO PRN (16:09)
[2024-09-07] MEDS ORDERED: GLUCOSE 40% GEL 15 GM TUBE PO PRN (16:09)
[2024-09-07] MEDS ORDERED: DEXTROSE 50% 50 ML SYRINGE IV PRN (16:09)
[2024-09-07] MEDS ORDERED: BUDESONIDE 0.5 MG/2 ML VIAL (PULMICORT) INH PRN (16:09)
[2024-09-07] MEDS ORDERED: GLUCOSE 10 TAB/TUBE PO PRN (16:09)
[2024-09-07] MEDS ORDERED: ALBUTEROL HFA 8 GM INHALER INH PRN (16:09)
[2024-09-07] MEDS ORDERED: GLUCAGON FOR INJ 1 MG VIAL SQ PRN (16:09)
[2024-09-07] MEDS ORDERED: PHARMACY GLYCEMIC MGMT CONSULT PRN (16:09)
[2024-09-07] MEDS ORDERED: POLYETHYLENE (MIRALAX) 17 GM PACK PO PRN (16:09)
[2024-09-07] MEDS ORDERED: metOLazone 5 MG TABLET PO PRN (16:09)
[2024-09-07] MEDS ORDERED: TRIAMCINOLONE ACET 0.025% CR 15 GM TUBE TOP PRN (16:09)
[2024-09-07] MEDS: GABAPENTIN 300 MG CAP PO SCH (16:40)
[2024-09-07] MEDS: INSULIN ASPART PER UNIT CHARGE SC SCH (18:03)
[2024-09-07] MEDS: cephALEXin 500 MG CAP PO SCH (18:04)
[2024-09-07] MEDS: MICONAZOLE NITRATE POWDER 85 GM EXT PRN (18:05)
[2024-09-07] MEDS: BUMETANIDE 4 MG in SYRINGE 0 ML IV SCH (18:30)
[2024-09-07] MEDS: FAMOTIDINE 40 MG TABLET PO SCH (20:08)
[2024-09-07] MEDS: PANTOprazole 40 MG TAB PO SCH (20:08)
[2024-09-07] MEDS: QUEtiapine FUMARATE 25 MG TABLET PO SCH (20:08)
[2024-09-07] MEDS: QUEtiapine FUMARATE 50 MG TABCR PO SCH (20:08)
[2024-09-07] MEDS: PRAZOSIN HCL 1 MG CAP PO SCH (20:08)
[2024-09-07] MEDS: ENOXAPARIN INJ 40 MG/0.4 ML SYR SQ SCH (20:08)
[2024-09-07] MEDS: DICLOFENAC SOD 1% GEL 100 GM TUBE EXT SCH (20:09)
[2024-09-08] MEDS: LEVOTHYROXINE SODIUM 200 MCG TABLET PO SCH (05:05)
[2024-09-08 06:09] LABS: Base Excess VBG 19.2 mEq/L; HCO3 VBG 47 mmol/L; Oxygen Saturation VBG 72.7 %; PCO2 VBG 64 mmHg (38-50); PO2 VBG 45 mmHg; pH VBG 7.47 (7.36-7.41)
[2024-09-08 06:21] LABS: Hematocrit (blood only) 40.1 % (37.0-47.0); Hemoglobin 13.1 g/dl (12.0-16.0); Mean Corpuscular Hemoglobin 28.7 pg (25.0-34.0); Mean Corpuscular Hgb Conc 32.7 g/dL (32.0-36.0); Mean Corpuscular Volume 87.7 fL (80.0-100.0); Mean Platelet Volume 10.8 fL (9.4-12.4); Platelet Count 267 K/uL (130-400); RDW Coefficient of Variation 14.4 % (11.5-14.5); RDW Standard Deviation 46.5 fL (36.4-46.3); Red Blood Count 4.57 M/uL (4.20-5.40); White Blood Count 11.14 K/ul (4.8-10.8)
[2024-09-08 06:56] LABS: BUN Creatinine Ratio 29.7 (10-20); Calcium 9.5 mg/dl (8.6-10.3); Creatinine Clr Calc Pharmacy 62.8 ml/min; Potassium 3.1 mmol/L (3.5-5.1)
[2024-09-08] MEDS: ATORVASTATIN 20 MG TAB PO SCH (08:02)
[2024-09-08] MEDS: metOLazone 5 MG TABLET PO SCH (08:02)
[2024-09-08] MEDS: POLYETHYLENE (MIRALAX) 17 GM PACK PO SCH (08:09)
[2024-09-08] MEDS: amLODIPine BESYLATE 5 MG TAB PO SCH (08:09)
[2024-09-08] MEDS: METOPROLOL SUCC 25MG EXT REL TAB PO SCH (08:19)
[2024-09-08] MEDS: POTASSIUM CHLORIDE CRTAB 20 MEQ TABCR PO STA (08:20)
[2024-09-08] MEDS: FLUTICASONE FUROATE 100MCG 14 PUFFS/INHALER INH SCH (08:21)
[2024-09-08] MEDS: UMECLIDINIUM/VILANTEROL 62.5/25MCG 7 PUFFS/INHALER INH SCH (08:22)
[2024-09-08] MEDS ORDERED: BUMETANIDE 1 MG TAB PO SCH (09:00)
[2024-09-08] MEDS ORDERED: NON-FORMULARY MEDICATION (Fluticasone-Umeclidin-Vilanter [Trelegy Ellipta] 100-62.5-25 mcg INH SCH (09:00)
[2024-09-08] MEDS: LANTUS PER UNIT CHARGE SC SCH ×2 (09:48→21:52)
--- NOTE | 2024-09-08 12:00 | Hospitalist Progress Note ---
Date of Service September 08, 2024 Assessment & Plan (1) Acute on chronic heart failure with preserved ejection fraction (HFpEF): (2) Acute on chronic respiratory failure with hypoxia and hypercapnia: (3) Chronic obstructive pulmonary disease: (4) Obesity hypoventilation syndrome: (5) Severe obstructive sleep apnea: (6) Morbid obesity with BMI of 50.0-59.9, adult: (7) Type 2 diabetes mellitus: (8) Hypothyroidism: (9) Mixed hyperlipidemia: (10) Hypertension: Plan 59-year-old female with past medical history of COPD, severe BOBBI, obesity hypoventilation syndrome, chronic hypoxic and hypercapnic respiratory failure using AVAPS at bedtime and on 2 L of oxygen at baseline, morbid obesity with BMI greater than 50, chronic congestive heart failure with preserved ejection fraction, essential hypertension, hyperlipidemia, type 2 diabetes mellitus with neuropathy, fatty liver who presents to ED with worsening shortness of breath for the past 5 days with approximately 20 pound weight gain over the past 3 weeks in spite of taking oral Bumex and metolazone at home. #Acute on chronic hypoxic and hypercapnic respiratory failure Likely combination of COPD and CHF Chest x-ray did not show any infiltrates Bio fire is negative Pro-Arnol is less than 0.02 CTA at [facility] on 09/04/2024 showed no PE Check CT chest without contrast to assess for any infiltrates or pulmonary edema See plan below #Acute on chronic congestive heart failure with preserved ejection fraction #Mild to moderate aortic stenosis #Mild mitral regurgitation #Essential hypertension #Hyperlipidemia Patient follows up with [facility] cardiology heart failure group Echo from 07/12/2023 shows EF of 60 to 65%, no regional wall motion abnormalities noted, mild concentric LVH, mild to moderate valvular aortic stenosis, mild mitral regurgitation BNP is 32 Troponin is 11.8 Chest x-ray does not show any evidence of pulmonary edema Continue IV diuresis: Switch IV Bumex to 2 mg IV twice daily Continue amlodipine 2.5 mg p.o. daily Continue statin Continue Toprol-XL 25 mg p.o. daily I/O monitoring Daily weights Check repeat echo #COPD #Severe BOBBI on AVAPS #Obesity hypoventilation syndrome Continue AVAPS when sleeping and at bedtime Patient is on 2 L of oxygen at baseline Bio fire is negative Pro-Arnol is less than 0.[address] of the chest without contrast to assess for any infiltrates Continue home inhalers Continue nebs as needed #Type 2 diabetes mellitus with neuropathy #Morbid obesity, BMI of 53 A1c is 5.5 from 08/06/2024 Pharmacy consulted for glycemic management Continue gabapentin Lifestyle counseling regarding diet, exercise weight loss provided #Cellulitis of left lower extremity Patient was started on Keflex outpatient on 09/14/2024, continue and finish 7- day course Improvement in cellulitis noted #Hypothyroidism Continue levothyroxine home dose #Anxiety/depression Continue quetiapine, prazosin and desvenlafaxine CODE STATUS: Full code DVT prophylaxis: Lovenox 40 mg subcutaneous daily Care plan discussed with patient, nursing staff Admission and Anticipated Discharge Date Admission Date: September 07, 2024 Subjective Patient seen and examined H&P reviewed Labs reviewed Radiology reviewed Patient reports feeling better today. Shortness of breath is improved. Patient reports that she has gained weight in the last 3 weeks and appears to be fluid weight. She has been getting progressively short of breath. Denies any sick contacts. Denies any fever, chills, cough, nausea, vomiting, diarrhea, abdominal pain She lives at home with her and has a caregiver. She uses 2 L of oxygen at baseline Physical Exam Physical Exam: General: No acute distress, talking in full sentences, no use of accessory muscles noted Psych: Awake and alert, oriented x 3 HEENT: Anicteric sclera, moist oral mucosa CVS: Regular rate and rhythm, systolic murmur audible Lungs: Bilateral air entry, no crackles noted, mild wheezing on right side noted Abdomen: Soft, nontender, no rebound, no guarding Ext: No lower extremity edema, no calf tenderness Neuro: No focal motor deficits noted Results & Data Results & Data Vital Signs (Past 12 Hours) Vital Signs Temp Pulse Pulse Resp BP Pulse Ox O2 Del Method 09/08/24 11:39 36.6 C 106 H 18 132/84 97 Room Air 09/08/24 10:56 109 H 09/08/24 08:05 Nasal Cannula 09/08/24 07:18 36.7 C 105 H 18 135/85 95 Room Air 09/08/24 05:12 119 H 09/08/24 03:19 36.4 C L 107 H 18 155/93 H 97 CPAP O2 Flow Rate 09/08/24 11:39 09/08/24 10:56 09/08/24 08:05 2 09/08/24 07:18 09/08/24 05:12 09/08/24 03:19 Laboratory Results Laboratory Results - last 24 hr 09/07/24 09/07/24 09/07/24 09:38 13:08 17:13 WBC RBC Hgb Hct MCV MCH MCHC RDW Std Deviation RDW Coeff of Carol Plt Count MPV PT 10.5 INR 1.0 APTT 26 PTT Ratio 1.0 D-Dimer 340 VBG pH 7.52 H VBG pCO2 60 H VBG pO2 49 VBG HCO3 49 VBG O2 Saturation 84.2 VBG Base Excess 22.2 Sodium Potassium Chloride Carbon Dioxide Anion Gap BUN Creatinine Est Cr Clr Drug Dosing eGFR BUN/Creatinine Ratio Glucose POC Glucose 211 H Calcium Magnesium Procalcitonin < 0.02 09/07/24 09/08/24 09/08/24 20:31 05:56 08:04 WBC 11.14 H RBC 4.57 Hgb 13.1 Hct 40.1 MCV 87.7 MCH 28.7 MCHC 32.7 RDW Std Deviation 46.5 H RDW Coeff of Carol 14.4 Plt Count 267 MPV 10.8 PT INR APTT PTT Ratio D-Dimer VBG pH 7.47 H VBG pCO2 64 H VBG pO2 45 VBG HCO3 47 VBG O2 Saturation 72.7 VBG Base Excess 19.2 Sodium 135 L Potassium 3.1 L Chloride 83 L Carbon Dioxide 43 H* Anion Gap 9 BUN 33 H Creatinine 1.11 Est Cr Clr Drug Dosing 62.8 eGFR 56.55 BUN/Creatinine Ratio 29.7 H Glucose 217 H POC Glucose 150 H 181 H Calcium 9.5 Magnesium 1.7 Procalcitonin Diagnostic Findings Chest X-Ray 09/07/24 09:54 XR chest 1V portable CLINICAL HISTORY: CHF TECHNIQUE: Single frontal radiograph of the chest was obtained. Comparison: Comparison is made to chest radiograph 07/08/2023 FINDINGS: Exam is limited by underpenetration. Cardiomegaly is noted. The aortic arch is calcified. The lungs are clear. No evidence of pleural effusion or pneumothorax. IMPRESSION: Cardiomegaly without evidence of pulmonary edema. ACT 112: Negative or not required by law. Electronically signed by: Gregor Nino M.D. 09/07/2024 10:17 AM PG Care Time/CCT Total # of Minutes Spent Total Time Spent with Patient: Total time spent is greater than 50% in coordination of care (as documented) at patient's floor/unit and/or counseling patient: Coding Level of Care Code 31987 SUB INP/OBS CARE 350MIN Diagnoses Acute on chronic heart failure with preserved ejection fraction (HFpEF) I50.33 Acute on chronic respiratory failure with hypoxia and hypercapnia J96.21; J96.22 Chronic obstructive pulmonary disease J44.9 COPD type: unspecified COPD Obesity hypoventilation syndrome E66.2 Severe obstructive sleep apnea G47.33 Morbid obesity with BMI of 50.0-59.9, adult E66.01; Z68.43 Type 2 diabetes mellitus E11.9 Hypothyroidism E03.9 Mixed hyperlipidemia E78.2 Hypertension I10 Hypertension type: essential hypertension (3) Chronic obstructive pulmonary disease COPD type: unspecified COPD Qualified Code(s): J44.9 - Chronic obstructive pulmonary disease, unspecified (10) Hypertension Hypertension type: essential hypertension Qualified Code(s): I10 - Essential (primary) hypertension
[2024-09-08] MEDS: POTASSIUM CHLORIDE CRTAB 20 MEQ TABCR PO ONE ×2 (13:36→20:19)
--- NOTE | 2024-09-08 13:55 | CT Scan Report ---
CT OF THE CHEST WITHOUT IV CONTRAST CLINICAL HISTORY: Shortness of breath. COMPARISON STUDY: Chest CT July 08, 2023. Chest radiograph September 07, 2024. CT DOSE: 1256.5 mGy.cm TECHNIQUE: Axial images of the chest were obtained without IV contrast. Images were reviewed in the axial, sagittal, and coronal planes. IV contrast was not administered for this examination. Automat ed exposure control was utilized for the study. A dose lowering technique was utilized adhering to t he principles of ALARA. FINDINGS: No enlarged axillary, mediastinal or hilar lymph nodes are present. The heart is mildly en larged. There is no pericardial effusion. Elevation of the right hemidiaphragm is unchanged. Severe d egenerative changes of both glenohumeral joints, right greater than left, are incidentally noted. Loki undglass opacities within the lingula and left lower lobe favor atelectasis. Right lower lobe airspac e opacity with volume loss and bronchiectasis is unchanged since prior exam. This is chronic. There i s no consolidation to suggest pneumonia. Chest wall collaterals are unchanged. IMPRESSION: 1. No acute intrathoracic findings. No consolidation to suggest pneumonia. 2. No change in right lower lobe airspace opacity with slight loss and bronchiectasis. This favors sc arring. 3. Stable moderate elevation of the right hemidiaphragm. 4. Mild cardiomegaly. ACT 112: Negative or not required by law. Electronically signed by: Art Pierce M.D. 09/08/2024 1:52 PM
--- NOTE | 2024-09-08 14:47 | Pharmacy Report ---
Pharmacy Glycemic Short Note 2 - Date of Service September 08, 2024 - Glycemic Short BSG Results (Last 24 hours): 09/07/24 09/07/24 09/08/24 17:13 20:31 05:56 Glucose 217 H POC Glucose 211 H 150 H 09/08/24 09/08/24 08:04 11:58 Glucose POC Glucose 181 H 238 H OUTPATIENT ANTIDIABETIC REGIMEN: * Farxiga 10mg PO daily * Mounjaro 7.5mg QWK * HbA1c 5.5% (08/06/24) ASSESSMENT: * Marianne is a 59 YOF admitted with respiratory failure secondary to COPD vs CHF and a history of type 2 diabetes mellitus. Pharmacy has been consulted to assist with glycemic management while inpatient. * Fasting BSG this AM slightly elevated, will initiate low dose Lantus. Add a scale BID based on BSGs for additional dosing. She received steroids (prednisone 50mg for 7 days filled 09/05/24) prior to admission, unclear if steroids are still affecting BSGs at this time. * Slightly tighten carbohydrate ratio due to elevated post-prandial BSGs PLAN FOR INPATIENT GLYCEMIC CONTROL: * Hold outpatient oral diabetes medications * Basal insulin * Lantus 0-10 units SQ BID based on BSG (see eMAR for additional details) * Bolus insulin * NovoLog per scale ACHS or Q6hrs while NPO * Goal Range: Low 110 mg/dL - High 140 mg/dL * Correction Factor: 25 mg/dL/unit * Nutritional / Prandial insulin per carb ratio of 1 unit per 7 grams CHO consumed
[2024-09-08] MEDS: CYCLOBENZAPRINE HCL 10 MG TAB PO PRN (15:26)
[2024-09-08] MEDS: MAGNESIUM SULFATE / D5W 1 GM/100 ML BAG IV SCH (15:29)
[2024-09-08] MEDS: BUMETANIDE 2 MG in SYRINGE 0 ML IV SCH (17:43)
[2024-09-08] MEDS: MAGNESIUM OXIDE 400 MG TAB PO SCH (20:17)
[2024-09-09] MEDS: ONDANSETRON INJ 2 MG/ML 2 ML VIAL IV PRN (04:54)
[2024-09-09 06:00] LABS: Hematocrit (blood only) 39.9 % (37.0-47.0); Mean Corpuscular Hemoglobin 28.3 pg (25.0-34.0); Mean Corpuscular Hgb Conc 32.6 g/dL (32.0-36.0); Mean Corpuscular Volume 86.7 fL (80.0-100.0); Mean Platelet Volume 10.8 fL (9.4-12.4); Platelet Count 268 K/uL (130-400); RDW Coefficient of Variation 14.3 % (11.5-14.5); RDW Standard Deviation 45.6 fL (36.4-46.3); White Blood Count 11.61 K/ul (4.8-10.8)
[2024-09-09 06:33] LABS: BUN Creatinine Ratio 38.5 (10-20); Calcium 9.9 mg/dl (8.6-10.3); Creatinine Clr Calc Pharmacy 59.2 ml/min; Magnesium 2.3 mg/dl (1.7-2.4); Potassium 3.2 mmol/L (3.5-5.1)
[2024-09-09] MEDS: CYANOCOBALAMIN 1000 MCG/ML VIAL IM SCH (08:58)
[2024-09-09] MEDS: POTASSIUM CHLORIDE CRTAB 20 MEQ TABCR PO SCH (08:59)
[2024-09-09] MEDS ORDERED: LANTUS PER UNIT CHARGE SC SCH (09:00)
--- NOTE | 2024-09-09 12:10 | Hospitalist Progress Note ---
Date of Service September 09, 2024 Assessment & Plan (1) Acute on chronic heart failure with preserved ejection fraction (HFpEF): (2) Acute on chronic respiratory failure with hypoxia and hypercapnia: (3) Chronic obstructive pulmonary disease: (4) Obesity hypoventilation syndrome: (5) Severe obstructive sleep apnea: (6) Morbid obesity with BMI of 50.0-59.9, adult: (7) Type 2 diabetes mellitus: (8) Hypothyroidism: (9) Mixed hyperlipidemia: (10) Hypertension: Plan 59-year-old female with past medical history of COPD, severe BOBBI, obesity hypoventilation syndrome, chronic hypoxic and hypercapnic respiratory failure using AVAPS at bedtime and on 2 L of oxygen at baseline, morbid obesity with BMI greater than 50, chronic congestive heart failure with preserved ejection fraction, essential hypertension, hyperlipidemia, type 2 diabetes mellitus with neuropathy, fatty liver who presents to ED with worsening shortness of breath for the past 5 days with approximately 20 pound weight gain over the past 3 weeks in spite of taking oral Bumex and metolazone at home. #Acute on chronic hypoxic and hypercapnic respiratory failure Likely combination of COPD and CHF Chest x-ray did not show any infiltrates Bio fire is negative Pro-Arnol is less than 0.02 CTA at [facility] on 09/04/[address] of the chest from 09/08/2024 did not show any evidence of pulmonary edema or consolidation reflecting pneumonia See plan below #Acute on chronic congestive heart failure with preserved ejection fraction #Mild to moderate aortic stenosis #Mild mitral regurgitation #Essential hypertension #Hyperlipidemia Patient follows up with [facility] cardiology heart failure group Echo from 07/12/2023 shows EF of 60 to 65%, no regional wall motion abnormalities noted, mild concentric LVH, mild to moderate valvular aortic stenosis, mild mitral regurgitation 2D echo done: Results pending BNP is 32 Troponin is 11.8 Chest x-ray does not show any evidence of pulmonary edema CT of the chest from 09/08/2024 did not show any evidence of pulmonary edema Stop IV diuresis and switch to Bumex 2 mg p.o. twice daily: Patient takes 4 mg p.o. daily at home and advised to switch to twice a day dosing as patient reports that her shortness of breath typically gets worse in the evening and I believe it twice a day dosing will actually help with her symptoms Continue amlodipine 2.5 mg p.o. daily Continue statin Increase Toprol-XL to 25 mg p.o. twice daily I/O monitoring Daily weights #COPD #Severe BOBBI on AVAPS #Obesity hypoventilation syndrome Continue AVAPS when sleeping and at bedtime Patient is on 2 L of oxygen at baseline Bio fire is negative Pro-Arnol is less than 0.02 CT of the chest from 09/08/2024 does not show any evidence of pneumonia or consolidation Continue home inhalers Continue nebs as needed #Type 2 diabetes mellitus with neuropathy #Morbid obesity, BMI of 53 A1c is 5.5 from 08/06/2024 Pharmacy consulted for glycemic management Continue gabapentin Lifestyle counseling regarding diet, exercise weight loss provided #Cellulitis of left lower extremity Patient was started on Keflex outpatient on 09/04/2024, continue and finish 7- day course Improvement in cellulitis noted #Hypothyroidism Continue levothyroxine home dose #Anxiety/depression Continue quetiapine, prazosin and desvenlafaxine #Constipation MiraLAX plus senna Milk of magnesia x 1 dose CODE STATUS: Full code DVT prophylaxis: Lovenox 40 mg subcutaneous daily PT consulted for discharge disposition, case management consulted I suspect patient will need home health Discharge planning likely in the next 24 hours based on PT recommendations, clinical improvement and echo report Care plan discussed with patient, nursing staff Admission and Anticipated Discharge Date Admission Date: September 07, 2024 Subjective Patient seen and examined Labs reviewed Radiology reviewed Telemetry reviewed Overall patient states she feels better today, still feels short of breath when she is ambulating Denies any nausea, vomiting, diarrhea abdominal pain Complaining of constipation Denies any fever or chills Physical Exam Physical Exam: General: No acute distress, talking in full sentences, no use of accessory muscles noted Psych: Awake and alert, oriented x 3 HEENT: Anicteric sclera, moist oral mucosa CVS: Regular rate and rhythm, systolic murmur audible Lungs: Bilateral air entry, no crackles noted, no wheezing noted Abdomen: Soft, nontender, no rebound, no guarding Ext: No lower extremity edema, no calf tenderness, left lower extremity no evidence of cellulitis noted Neuro: No focal motor deficits noted Results & Data Results & Data Vital Signs (Past 12 Hours) Vital Signs Temp Pulse Pulse Resp BP Pulse Ox O2 Del Method 09/09/24 11:34 36.6 C 99 H 20 131/84 96 Nasal Cannula 09/09/24 10:12 Nasal Cannula 09/09/24 08:37 36.7 C 73 20 122/75 93 Nasal Cannula 09/09/24 07:24 107 H 09/09/24 02:56 37.1 C 107 H 18 121/79 94 CPAP O2 Flow Rate 09/09/24 11:34 2 09/09/24 10:12 2 09/09/24 08:37 2 09/09/24 07:24 09/09/24 02:56 Laboratory Results Laboratory Results - last 24 hr 09/08/24 09/08/24 09/09/24 17:04 20:00 05:20 WBC 11.61 H RBC 4.60 Hgb 13.0 Hct 39.9 MCV 86.7 MCH 28.3 MCHC 32.6 RDW Std Deviation 45.6 RDW Coeff of Carol 14.3 Plt Count 268 MPV 10.8 Sodium 133 L Potassium 3.2 L Chloride 79 L Carbon Dioxide 42 H* Anion Gap 12 H BUN 45 H Creatinine 1.17 Est Cr Clr Drug Dosing 59.2 eGFR 53.09 BUN/Creatinine Ratio 38.5 H Glucose 273 H POC Glucose 190 H 208 H Calcium 9.9 Magnesium 2.3 Vitamin B12 217 09/09/24 09/09/24 08:18 11:52 WBC RBC Hgb Hct MCV MCH MCHC RDW Std Deviation RDW Coeff of Carol Plt Count MPV Sodium Potassium Chloride Carbon Dioxide Anion Gap BUN Creatinine Est Cr Clr Drug Dosing eGFR BUN/Creatinine Ratio Glucose POC Glucose 192 H 203 H Calcium Magnesium Vitamin B12 Diagnostic Findings Chest CT 09/08/24 12:01 CT OF THE CHEST WITHOUT IV CONTRAST CLINICAL HISTORY: Shortness of breath. COMPARISON STUDY: Chest CT July 08, 2023. Chest radiograph September 07, 2024. CT DOSE: 1256.5 mGy.cm TECHNIQUE: Axial images of the chest were obtained without IV contrast. Images were reviewed in the axial, sagittal, and coronal planes. IV contrast was not administered for this examination. Automated exposure control was utilized for the study. A dose lowering technique was utilized adhering to the principles of ALARA. FINDINGS: No enlarged axillary, mediastinal or hilar lymph nodes are present. The heart is mildly enlarged. There is no pericardial effusion. Elevation of the right hemidiaphragm is unchanged. Severe degenerative changes of both glenohumeral joints, right greater than left, are incidentally noted. Groundglass opacities within the lingula and left lower lobe favor atelectasis. Right lower lobe airspace opacity with volume loss and bronchiectasis is uncha nged since prior exam. This is chronic. There is no consolidation to suggest pneumonia. Chest wall collaterals are unchanged. IMPRESSION: 1. No acute intrathoracic findings. No consolidation to suggest pneumonia. 2. No change in right lower lobe airspace opacity with slight loss and bronchiectasis. This favors scarring. 3. Stable moderate elevation of the right hemidiaphragm. 4. Mild cardiomegaly. ACT 112: Negative or not required by law. Electronically signed by: Art Pierce M.D. 09/08/2024 1:52 PM PG Care Time/CCT Total # of Minutes Spent Total Time Spent with Patient: Total time spent is greater than 50% in coordination of care (as documented) at patient's floor/unit and/or counseling patient: Coding Level of Care Code 27178 SUB INP/OBS CARE 3/50MIN Diagnoses Acute on chronic heart failure with preserved ejection fraction (HFpEF) I50.33 Acute on chronic respiratory failure with hypoxia and hypercapnia J96.21; J96.22 Chronic obstructive pulmonary disease J44.9 COPD type: unspecified COPD Obesity hypoventilation syndrome E66.2 Severe obstructive sleep apnea G47.33 Morbid obesity with BMI of 50.0-59.9, adult E66.01; Z68.43 Type 2 diabetes mellitus E11.9 Hypothyroidism E03.9 Mixed hyperlipidemia E78.2 Hypertension I10 Hypertension type: essential hypertension (3) Chronic obstructive pulmonary disease COPD type: unspecified COPD Qualified Code(s): J44.9 - Chronic obstructive pulmonary disease, unspecified (10) Hypertension Hypertension type: essential hypertension Qualified Code(s): I10 - Essential (primary) hypertension
[2024-09-09] MEDS: MAGNESIUM HYDROXIDE SUSP 30 ML UDC PO ONE (13:17)
[2024-09-09] MEDS: SENNA 8.6 MG TAB PO SCH ×2 (13:17→20:32)
--- NOTE | 2024-09-09 16:27 | XCELERA ---
[id number]
[2024-09-09] MEDS: BUMETANIDE 1 MG TAB PO SCH (17:37)
[2024-09-09] MEDS: LANTUS PER UNIT CHARGE SC SCH (20:33)
[2024-09-09] MEDS: METOPROLOL SUCC 25MG EXT REL TAB PO SCH (20:38)
[2024-09-09] MEDS: ACETAMINOPHEN 500 MG TAB PO PRN (22:45)
[2024-09-10 07:01] LABS: Hematocrit (blood only) 40.3 % (37.0-47.0); Hemoglobin 13.4 g/dl (12.0-16.0); Mean Corpuscular Hemoglobin 28.8 pg (25.0-34.0); Mean Corpuscular Hgb Conc 33.3 g/dL (32.0-36.0); Mean Corpuscular Volume 86.7 fL (80.0-100.0); Mean Platelet Volume 10.9 fL (9.4-12.4); Platelet Count 275 K/uL (130-400); RDW Standard Deviation 44.4 fL (36.4-46.3); Red Blood Count 4.65 M/uL (4.20-5.40); White Blood Count 11.63 K/ul (4.8-10.8)
[2024-09-10 07:37] LABS: BUN Creatinine Ratio 37.1 (10-20); Calcium 10.3 mg/dl (8.6-10.3); Creatinine Clr Calc Pharmacy 45.6 ml/min; Magnesium 2.6 mg/dl (1.7-2.4); Potassium 3.4 mmol/L (3.5-5.1)
[2024-09-10] MEDS: VITAMIN B COMPLEX TAB PO SCH (08:19)
[2024-09-10] MEDS: LANTUS PER UNIT CHARGE SC SCH (08:45)
--- NOTE | 2024-09-10 10:29 | Hospitalist Progress Note ---
Date of Service September 10, 2024 Assessment & Plan (1) Acute on chronic heart failure with preserved ejection fraction (HFpEF): (2) Acute on chronic respiratory failure with hypoxia and hypercapnia: (3) Chronic obstructive pulmonary disease: (4) Obesity hypoventilation syndrome: (5) Severe obstructive sleep apnea: (6) Morbid obesity with BMI of 50.0-59.9, adult: (7) Type 2 diabetes mellitus: (8) Hypothyroidism: (9) Mixed hyperlipidemia: (10) Hypertension: Plan 59-year-old female with past medical history of COPD, severe BOBBI, obesity hypoventilation syndrome, chronic hypoxic and hypercapnic respiratory failure using AVAPS at bedtime and on 2 L of oxygen at baseline, morbid obesity with BMI greater than 50, chronic congestive heart failure with preserved ejection fraction, essential hypertension, hyperlipidemia, type 2 diabetes mellitus with neuropathy, fatty liver who presents to ED with worsening shortness of breath for the past 5 days with approximately 20 pound weight gain over the past 3 weeks in spite of taking oral Bumex and metolazone at home. #Acute on chronic hypoxic and hypercapnic respiratory failure Likely combination of COPD and CHF Chest x-ray did not show any infiltrates Bio fire is negative Pro-Arnol is less than 0.02 CTA at [facility] on 09/04/[address] of the chest from 09/08/2024 did not show any evidence of pulmonary edema or consolidation reflecting pneumonia See plan below #Acute on chronic congestive heart failure with preserved ejection fraction #Mild to moderate aortic stenosis #Mild mitral regurgitation #Essential hypertension #Hyperlipidemia Patient follows up with [facility] cardiology heart failure group Echo from 07/12/2023 shows EF of 60 to 65%, no regional wall motion abnormalities noted, mild concentric LVH, mild to moderate valvular aortic stenosis, mild mitral regurgitation 2D echo shows EF greater than 70%, no regional wall motion abnormalities, moderate concentric left ventricular hypertrophy noted. Valves were not well-visualized BNP is 32 Troponin is 11.8 Chest x-ray does not show any evidence of pulmonary edema CT of the chest from 09/08/2024 did not show any evidence of pulmonary edema I suspect patient has been over diuresed which is affecting her kidney function: Hold Bumex Continue amlodipine 2.5 mg p.o. daily Continue statin Continue Toprol-XL to 25 mg p.o. twice daily I/O monitoring Daily weights #KRISHAN Likely from IV Bumex Hold diuretics Gentle IV fluid hydration x 1 L only Monitor renal function and electrolytes Avoid nephrotoxic agents including NSAIDs #COPD #Severe BOBBI on AVAPS #Obesity hypoventilation syndrome Continue AVAPS when sleeping and at bedtime Patient is on 2 L of oxygen at baseline Bio fire is negative Pro-Arnol is less than 0.02 CT of the chest from 09/08/2024 does not show any evidence of pneumonia or consolidation Continue home inhalers Continue nebs as needed #Type 2 diabetes mellitus with neuropathy #Morbid obesity, BMI of 53 A1c is 5.5 from 08/06/2024 Pharmacy consulted for glycemic management Continue gabapentin Lifestyle counseling regarding diet, exercise weight loss provided #Cellulitis of left lower extremity Patient was started on Keflex outpatient on 09/04/2024, continue and finish 7- day course Improvement in cellulitis noted #Hypothyroidism Continue levothyroxine home dose #Anxiety/depression Continue quetiapine, prazosin and desvenlafaxine #Constipation MiraLAX plus senna CODE STATUS: Full code DVT prophylaxis: Lovenox 40 mg subcutaneous daily Discharge planning likely in the next 24 hours based on improvement in renal function Care plan discussed with patient, nursing staff Admission and Anticipated Discharge Date Admission Date: September 07, 2024 Subjective Patient seen and examined Denies any chest pain. Denies any shortness of breath on rest. She ambulated physical therapy and states she does get short of breath when she is ambulating Lungs are clear, leg edema has pretty much resolved Labs reviewed: Creatinine is rising and patient with KRISHAN at present She denies any cough, fever, chills, nausea, vomiting, diarrhea, abdominal pain She had a bowel movement yesterday Physical Exam Physical Exam: General: No acute distress, talking in full sentences, no use of accessory muscles noted Psych: Awake and alert, oriented x 3 HEENT: Anicteric sclera, moist oral mucosa CVS: Regular rate and rhythm, systolic murmur audible Lungs: Bilateral air entry, no crackles noted, no wheezing noted Abdomen: Soft, nontender, no rebound, no guarding Ext: No lower extremity edema, no calf tenderness, left lower extremity cellulitis has improved Neuro: No focal motor deficits noted Results & Data Results & Data Vital Signs (Past 12 Hours) Vital Signs Temp Pulse Resp BP Pulse Ox O2 Del Method O2 Flow Rate 09/10/24 07:51 36.6 C 87 18 122/76 96 Nasal Cannula 2 09/10/24 07:41 Nasal Cannula 2 09/10/24 03:44 36.6 C 85 18 127/79 100 CPAP 2 09/09/24 23:14 36.7 C 103 H 18 109/64 96 Nasal Cannula 2 09/09/24 22:39 Nasal Cannula 2 Laboratory Results Laboratory Results - last 24 hr 09/09/24 09/09/24 09/09/24 11:52 17:12 20:11 WBC RBC Hgb Hct MCV MCH MCHC RDW Std Deviation RDW Coeff of Carol Plt Count MPV Sodium Potassium Chloride Carbon Dioxide Anion Gap BUN Creatinine Est Cr Clr Drug Dosing eGFR BUN/Creatinine Ratio Glucose POC Glucose 203 H 170 H 209 H Calcium Magnesium 09/10/24 09/10/24 06:40 07:37 WBC 11.63 H RBC 4.65 Hgb 13.4 Hct 40.3 MCV 86.7 MCH 28.8 MCHC 33.3 RDW Std Deviation 44.4 RDW Coeff of Carol 14.0 Plt Count 275 MPV 10.9 Sodium 132 L Potassium 3.4 L Chloride 79 L Carbon Dioxide 41 H* Anion Gap 12 H BUN 56 H Creatinine 1.51 H D Est Cr Clr Drug Dosing 45.6 eGFR 39.09 BUN/Creatinine Ratio 37.1 H Glucose 206 H POC Glucose 227 H Calcium 10.3 Magnesium 2.6 H PG Care Time/CCT Total # of Minutes Spent Total Time Spent with Patient: Total time spent is greater than 50% in coordination of care (as documented) at patient's floor/unit and/or counseling patient: Coding Level of Care Code 05080 SUB INP/OBS CARE 235MIN Diagnoses Acute on chronic heart failure with preserved ejection fraction (HFpEF) I50.33 Acute on chronic respiratory failure with hypoxia and hypercapnia J96.21; J96.22 Chronic obstructive pulmonary disease J44.9 COPD type: unspecified COPD Obesity hypoventilation syndrome E66.2 Severe obstructive sleep apnea G47.33 Morbid obesity with BMI of 50.0-59.9, adult E66.01; Z68.43 Type 2 diabetes mellitus E11.9 Hypothyroidism E03.9 Mixed hyperlipidemia E78.2 Hypertension I10 Hypertension type: essential hypertension (3) Chronic obstructive pulmonary disease COPD type: unspecified COPD Qualified Code(s): J44.9 - Chronic obstructive pulmonary disease, unspecified (10) Hypertension Hypertension type: essential hypertension Qualified Code(s): I10 - Essential (primary) hypertension
[2024-09-10] MEDS: NSS + 20MEQ KCL 20 MEQ/1,000 ML BAG IV SCH (11:02)
--- NOTE | 2024-09-10 11:31 | Pharmacy Report ---
Pharmacy Glycemic Short Note 2 - Date of Service September 10, 2024 - Glycemic Short BSG Results (Last 24 hours): 09/09/24 09/09/24 09/09/24 11:52 17:12 20:11 Glucose POC Glucose 203 H 170 H 209 H 09/10/24 09/10/24 06:40 07:37 Glucose 206 H POC Glucose 227 H OUTPATIENT ANTIDIABETIC REGIMEN: * Farxiga 10mg PO daily * Mounjaro 7.5mg QWK * HbA1c 5.5% (08/06/24) ASSESSMENT: 09/10/24 * Patient received 52 units of insulin yesterday, 15 units basal. Blood sugars above goal, including fasting, increase AM basal and tighten CF/CR at this time. * Patient on PO Keflex. No steroids inpatient, prednisone prior to admission. 09/08/24 * Marianne is a 59 YOF admitted with respiratory failure secondary to COPD vs CHF and a history of type 2 diabetes mellitus. Pharmacy has been consulted to assist with glycemic management while inpatient. * Fasting BSG this AM slightly elevated, will initiate low dose Lantus. Add a scale BID based on BSGs for additional dosing. She received steroids (prednisone 50mg for 7 days filled 09/05/24) prior to admission, unclear if steroids are still affecting BSGs at this time. * Slightly tighten carbohydrate ratio due to elevated post-prandial BSGs PLAN FOR INPATIENT GLYCEMIC CONTROL: * Hold outpatient diabetes medications * Basal insulin * Lantus 10 units SQ BID * Bolus insulin * NovoLog per scale ACHS or Q6hrs while NPO * Goal Range: Low 110 mg/dL - High 140 mg/dL * Correction Factor: 20 mg/dL/unit * Nutritional / Prandial insulin per carb ratio of 1 unit per 6 grams CHO consumed
[2024-09-10 12:16] LABS: Estimated Average Glucose 131 mg/dl; Hemoglobin A1C 6.2 % (4.5-5.6)
[2024-09-10] MEDS: FAMOTIDINE 20 MG TAB PO SCH (20:41)
[2024-09-11 08:30] LABS: Hematocrit (blood only) 39.2 % (37.0-47.0); Hemoglobin 12.7 g/dl (12.0-16.0); Mean Corpuscular Hemoglobin 28.3 pg (25.0-34.0); Mean Corpuscular Hgb Conc 32.4 g/dL (32.0-36.0); Mean Corpuscular Volume 87.5 fL (80.0-100.0); Mean Platelet Volume 10.9 fL (9.4-12.4); Platelet Count 237 K/uL (130-400); RDW Coefficient of Variation 13.9 % (11.5-14.5); RDW Standard Deviation 44.6 fL (36.4-46.3); Red Blood Count 4.48 M/uL (4.20-5.40); White Blood Count 11.26 K/ul (4.8-10.8)
[2024-09-11 09:11] LABS: BUN Creatinine Ratio 48.2 (10-20); Calcium 9.8 mg/dl (8.6-10.3); Creatinine Clr Calc Pharmacy 83.4 ml/min; Magnesium 2.3 mg/dl (1.7-2.4); Potassium 3.5 mmol/L (3.5-5.1)
[2024-09-11] MEDS: POTASSIUM CHLORIDE CRTAB 20 MEQ TABCR PO STA (09:30)
[2024-09-11] MEDS: SODIUM CHLORIDE 0.9% 250 ML IV ONE (09:50)
--- NOTE | 2024-09-11 11:27 | Hospitalist Progress Note ---
Date of Service September 11, 2024 Assessment & Plan (1) Acute on chronic heart failure with preserved ejection fraction (HFpEF): (2) Acute on chronic respiratory failure with hypoxia and hypercapnia: (3) Chronic obstructive pulmonary disease: (4) Obesity hypoventilation syndrome: (5) Severe obstructive sleep apnea: (6) Morbid obesity with BMI of 50.0-59.9, adult: (7) Type 2 diabetes mellitus: (8) Hypothyroidism: (9) Mixed hyperlipidemia: (10) Hypertension: Plan 59-year-old female with past medical history of COPD, severe BOBBI, obesity hypoventilation syndrome, chronic hypoxic and hypercapnic respiratory failure using AVAPS at bedtime and on 2 L of oxygen at baseline, morbid obesity with BMI greater than 50, chronic congestive heart failure with preserved ejection fraction, essential hypertension, hyperlipidemia, type 2 diabetes mellitus with neuropathy, fatty liver who presents to ED with worsening shortness of breath for the past 5 days with approximately 20 pound weight gain over the past 3 weeks in spite of taking oral Bumex and metolazone at home. #Acute on chronic hypoxic and hypercapnic respiratory failure Likely combination of COPD and CHF Chest x-ray did not show any infiltrates Bio fire is negative Pro-Arnol is less than 0.[address] [facility] on 09/04/[address] of the chest from 09/08/2024 did not show any evidence of pulmonary edema or consolidation reflecting pneumonia See plan below #Acute on chronic congestive heart failure with preserved ejection fraction #Mild to moderate aortic stenosis #Mild mitral regurgitation #Essential hypertension #Hyperlipidemia Patient follows up with [facility] cardiology heart failure group Echo from 07/12/2023 shows EF of 60 to 65%, no regional wall motion abnormalities noted, mild concentric LVH, mild to moderate valvular aortic stenosis, mild mitral regurgitation 2D echo shows EF greater than 70%, no regional wall motion abnormalities, moderate concentric left ventricular hypertrophy noted. Valves were not well-visualized BNP is 32 Troponin is 11.8 Chest x-ray does not show any evidence of pulmonary edema CT of the chest from 09/08/2024 did not show any evidence of pulmonary edema I suspect patient has been over diuresed which is affecting her kidney function: Continue to hold Bumex Will hydrate patient gently with IV fluids time 1 L Continue amlodipine 2.5 mg p.o. daily Continue statin Continue Toprol-XL to 25 mg p.o. twice daily I/O monitoring Daily weights Tentative plan for discharge on 09/12/2024: If renal function has improved, resume Bumex at lower dose of 1 mg daily starting 09/13/2024 x 1 day, then increase to 2 mg daily x 2 days and then increase to home dose of 4 mg daily (patient would benefit from dividing Bumex dose to 2 mg twice daily taking it at 8 AM and 2 PM twice daily): She will need close monitoring with PCP to monitor her renal function and electrolytes #KRISHAN Likely from IV Bumex Renal function has improved with IV fluids Continue to hold diuretics and IV fluids x 1 more liter today Monitor renal function and electrolytes Avoid nephrotoxic agents including NSAIDs #COPD #Severe BOBBI on AVAPS #Obesity hypoventilation syndrome Continue AVAPS when sleeping and at bedtime Patient is on 2 L of oxygen at baseline Bio fire is negative Pro-Arnol is less than 0.02 CT of the chest from 09/08/2024 does not show any evidence of pneumonia or consolidation Continue home inhalers Continue nebs as needed #Type 2 diabetes mellitus with neuropathy #Morbid obesity, BMI of 53 A1c 6.2 Pharmacy consulted for glycemic management Continue gabapentin Lifestyle counseling regarding diet, exercise weight loss provided #Cellulitis of left lower extremity Patient was started on Keflex outpatient on 09/04/2024, continue and finish 7- day course until 09/12/2024 Improvement in cellulitis noted #Hypothyroidism Continue levothyroxine home dose #Anxiety/depression Continue quetiapine, prazosin and desvenlafaxine #Constipation MiraLAX plus senna CODE STATUS: Full code DVT prophylaxis: Lovenox 40 mg subcutaneous daily Discharge planning likely in the next 24 hours based on improvement in renal function Care plan discussed with patient, nursing staff Admission and Anticipated Discharge Date Admission Date: September 07, 2024 Subjective Patient seen and examined She felt anxious last night and was having a difficult time with her AVAPS and Alternating between AVAPS and oxygen She denies any chest pain, shortness of breath, cough, fever, chills She is concerned about her kidney function Discussed going home today and holding diuretics versus gentle IV fluids for 1 L and she would prefer to get some fluids and recheck her kidney function tomorrow before going home Physical Exam Physical Exam: General: No acute distress, talking in full sentences, no use of accessory muscles noted Psych: Awake and alert, oriented x 3 HEENT: Anicteric sclera, moist oral mucosa CVS: Regular rate and rhythm, systolic murmur audible Lungs: Bilateral air entry, no crackles noted, no wheezing noted Abdomen: Soft, nontender, no rebound, no guarding Ext: No lower extremity edema, no calf tenderness, left lower extremity cellulitis has improved Results & Data Results & Data Vital Signs (Past 12 Hours) Vital Signs Temp Pulse Resp BP BP Pulse Ox O2 Del Method 09/11/24 08:36 36.6 C 83 18 133/78 100 Room Air 09/11/24 07:49 Nasal Cannula, Other 09/11/24 03:04 36.5 C 95 H 18 116/75 97 Room Air, CPAP O2 Flow Rate 09/11/24 08:36 09/11/24 07:49 2 09/11/24 03:04 Laboratory Results Laboratory Results - last 24 hr 09/10/24 09/10/24 09/10/24 11:19 12:03 17:07 WBC RBC Hgb Hct MCV MCH MCHC RDW Std Deviation RDW Coeff of Carol Plt Count MPV Sodium Potassium Chloride Carbon Dioxide Anion Gap BUN Creatinine Est Cr Clr Drug Dosing eGFR BUN/Creatinine Ratio Glucose POC Glucose 261 H 176 H Estimat Average Glucose 131 Hemoglobin A1c 6.2 H Calcium Magnesium 09/10/24 09/11/24 09/11/24 19:33 07:56 08:26 WBC 11.26 H RBC 4.48 Hgb 12.7 Hct 39.2 MCV 87.5 MCH 28.3 MCHC 32.4 RDW Std Deviation 44.6 RDW Coeff of Carol 13.9 Plt Count 237 MPV 10.9 Sodium 135 L Potassium 3.5 Chloride 87 L Carbon Dioxide 41 H* Anion Gap 7 BUN 40 H Creatinine 0.83 D Est Cr Clr Drug Dosing 83.4 eGFR 80.15 BUN/Creatinine Ratio 48.2 H Glucose 160 H POC Glucose 183 H 169 H Estimat Average Glucose Hemoglobin A1c Calcium 9.8 Magnesium 2.3 PG Care Time/CCT Total # of Minutes Spent Total Time Spent with Patient: Total time spent is greater than 50% in coordination of care (as documented) at patient's floor/unit and/or counseling patient: Coding Level of Care Code 21081 SUB INP/OBS CARE 2/35MIN Diagnoses Acute on chronic heart failure with preserved ejection fraction (HFpEF) I50.33 Acute on chronic respiratory failure with hypoxia and hypercapnia J96.21; J96.22 Chronic obstructive pulmonary disease J44.9 COPD type: unspecified COPD Obesity hypoventilation syndrome E66.2 Severe obstructive sleep apnea G47.33 Morbid obesity with BMI of 50.0-59.9, adult E66.01; Z68.43 Type 2 diabetes mellitus E11.9 Hypothyroidism E03.9 Mixed hyperlipidemia E78.2 Hypertension I10 Hypertension type: essential hypertension (3) Chronic obstructive pulmonary disease COPD type: unspecified COPD Qualified Code(s): J44.9 - Chronic obstructive pulmonary disease, unspecified (10) Hypertension Hypertension type: essential hypertension Qualified Code(s): I10 - Essential (primary) hypertension
[2024-09-11] MEDS: SODIUM CHLORIDE 0.9% 1,000 ML IV SCH (12:06)
[2024-09-12] MEDS: CALCIUM CARBONATE 500 MG CHEWABLE TAB PO ONE (02:15)
[2024-09-12] MEDS: ALUMINUM/MAGNESIUM SUSP 30 ML UDC PO STA (04:24)
[2024-09-12] MEDS: SUCRALFATE 1 GM/10 ML UDC PO SCH (08:45)
[2024-09-12 08:50] LABS: Hematocrit (blood only) 39.9 % (37.0-47.0); Hemoglobin 12.8 g/dl (12.0-16.0); Mean Corpuscular Hemoglobin 28.6 pg (25.0-34.0); Mean Corpuscular Hgb Conc 32.1 g/dL (32.0-36.0); Mean Corpuscular Volume 89.1 fL (80.0-100.0); Platelet Count 242 K/uL (130-400); RDW Coefficient of Variation 13.8 % (11.5-14.5); RDW Standard Deviation 45.2 fL (36.4-46.3); Red Blood Count 4.48 M/uL (4.20-5.40); White Blood Count 9.37 K/ul (4.8-10.8)
[2024-09-12 09:11] LABS: BUN Creatinine Ratio 34.7 (10-20); Calcium 9.8 mg/dl (8.6-10.3); Creatinine Clr Calc Pharmacy 93.3 ml/min; Globulin 3.9 gm/dl (2.5-4.0); Magnesium 2.1 mg/dl (1.7-2.4); Potassium 3.2 mmol/L (3.5-5.1); Total Protein 7.9 gm/dl (6.0-8.3)
[2024-09-12] MEDS: POTASSIUM CHLORIDE CRTAB 20 MEQ TABCR PO STA (09:52)
--- NOTE | 2024-09-12 10:40 | Hospitalist Progress Note ---
Date of Service September 12, 2024 Assessment & Plan (1) Acute on chronic heart failure with preserved ejection fraction (HFpEF): Plan: Continue amlodipine 2.5 mg p.o. daily Continue statin Continue Toprol-XL to 25 mg p.o. twice daily I/O monitoring Daily weights Tentative plan for discharge on 09/12/2024: Renal function has improved, resume Bumex at lower dose of 1 mg daily starting 09/13/2024 x 1 day, then increase to 2 mg daily x 2 days and then increase to home dose of 4 mg daily (patient would benefit from dividing Bumex dose to 2 mg twice daily taking it at 8 AM and 2 PM twice daily): She will need close monitoring with PCP to monitor her renal function and electrolytes (2) Acute on chronic respiratory failure with hypoxia and hypercapnia: Plan: Likely combination of COPD and CHF Chest x-ray did not show any infiltrates (3) Chronic obstructive pulmonary disease: Plan: Continue AVAPS when sleeping and at bedtime Patient is on 2 L of oxygen at baseline Bio fire is negative Pro-Arnol is less than 0.02 CT of the chest from 09/08/2024 does not show any evidence of pneumonia or consolidation Continue home inhalers Continue nebs as needed (4) Obesity hypoventilation syndrome: (5) Severe obstructive sleep apnea: (6) Morbid obesity with BMI of 50.0-59.9, adult: (7) Type 2 diabetes mellitus: Plan: A1c 6.2 Pharmacy consulted fo (8) Hypothyroidism: (9) Mixed hyperlipidemia: (10) Hypertension: Plan #Constipation MiraLAX plus senna #Cellulitis of left lower extremity Patient was started on Keflex outpatient on 09/04/2024, continue and finish 7- day course until 09/12/2024 Improvement in cellulitis noted #Hypothyroidism Continue levothyroxine home dose #Anxiety/depression Continue quetiapine, prazosin and desvenlafaxine CODE STATUS: Full code DVT prophylaxis: Lovenox 40 mg subcutaneous daily Discharge planning once patient has bowel movement. Care plan discussed with patient, nursing staff Admission and Anticipated Discharge Date Admission Date: September 07, 2024 Subjective Pt seen and examined resting in chair. She states she has not had a bowel movement and is requesting she not be discharged until she does. Review of Systems Review of Systems: CONST: Negative for fever, body aches and chills. HENT: Negative for neck pain/stiffness, headache, congestion, sore throat, swelling. EYES: Negative for discharge/pain or vision changes. RESP: Negative for cough/hemoptysis and shortness of breath. CV: Negative chest pain, difficulty breathing, palpitations. ABD: Negative pain, nausea, vomiting. : Negative increase frequency, dysuria, blood in urine or stool. MUSC: Negative for muscle aches, edema. SKIN: Negative rash, lesions/sores. NEURO: Negative headache, dizziness, weakness. Physical Exam Physical Exam: GENERAL APPEARANCE NAD, activity normal for age, well developed/ well nourished, no cyanosis, pallor, or diaphoresis. EYES lids/conjunctiva normal. EARS/NOSE/THROAT Mucous membranes moist, nares normal, lips/teeth normal uvula midline without oral pharyngeal erythema, exudate or swelling TMs normal bilaterally. No lymphangitis/lymphedema. HEAD/NECK normocephalic atraumatic, no facial trauma, neck is supple. RESPIRATORY respiratory effort normal, speaks in full sentences, no tripod position, no accessory muscle use. Lungs clear to auscultation without rhonchi, wheezes, rales CARDIAC Regular rate and rhythm, no edema. ABDOMINAL Soft, ND/NT. No evidence of fluid wave. No pulsatile masses on exam, rebound tenderness, Servin sign or pain over Mcburney's point. MUSCLES/EXTREMITIES No abnormal range of motion, no swelling. SKIN Warm, pink and dry. No rashes, dermatoses, petechiae or lesions. NEUROLOGICAL Speech is clear and appropriate. Normal level of consciousness. Gait and coordination are normal. 5/5 strength in all extremities. PSYCH Normal mood and affect. Judgement/competence is appropriate Results & Data Results & Data Vital Signs (Past 12 Hours) Vital Signs Temp Pulse Pulse Resp BP Pulse Ox O2 Del Method 09/12/24 09:17 Nasal Cannula 09/12/24 07:45 36.2 C L 85 18 137/84 97 Nasal Cannula 09/12/24 07:12 85 09/12/24 03:58 36.3 C L 87 16 129/80 90 Room Air 09/11/24 22:48 36.3 C L 90 18 134/83 94 Nasal Cannula 09/11/24 22:45 Nasal Cannula, Other O2 Flow Rate 09/12/24 09:17 2 09/12/24 07:45 2 12/18/24 07:12 09/12/24 03:58 09/11/24 22:48 2 09/11/24 22:45 2 PG Care Time/CCT Total # of Minutes Spent Total Time Spent with Patient: Total time spent is greater than 50% in coordination of care (as documented) at patient's floor/unit and/or counseling patient: Coding Level of Care Code 84390 SUB INP/OBS CARE 2/35MIN Diagnoses Acute on chronic heart failure with preserved ejection fraction (HFpEF) I50.33 Acute on chronic respiratory failure with hypoxia and hypercapnia J96.21; J96.22 Chronic obstructive pulmonary disease J44.9 COPD type: unspecified COPD Obesity hypoventilation syndrome E66.2 Severe obstructive sleep apnea G47.33 Morbid obesity with BMI of 50.0-59.9, adult E66.01; Z68.43 Type 2 diabetes mellitus E11.9 Hypothyroidism E03.9 Mixed hyperlipidemia E78.2 Hypertension I10 Hypertension type: essential hypertension (3) Chronic obstructive pulmonary disease COPD type: unspecified COPD Qualified Code(s): J44.9 - Chronic obstructive pulmonary disease, unspecified (10) Hypertension Hypertension type: essential hypertension Qualified Code(s): I10 - Essential (primary) hypertension
[2024-09-12] MEDS: LANTUS PER UNIT CHARGE SC SCH (21:35)
[2024-09-12] MEDS: ALBUT/IPRATROP 3MG/0.5MG NEB 3 ML VIAL INH PRN (21:47)
[2024-09-13] MEDS: POLYETHYLENE (MIRALAX) 17 GM PACK PO ONE (05:52)
[2024-09-13 07:18] VITALS: O2SAT 100
[2024-09-13] MEDS: LANTUS PER UNIT CHARGE SC SCH (09:25)
--- NOTE | 2024-09-13 10:05 | Discharge Summary ---
Discharge Summary Date of Service September 13, 2024 Principal Dx & Hospital Course #1 = Principal Diagnosis (1) Acute on chronic heart failure with preserved ejection fraction (HFpEF): Continue amlodipine 2.5 mg p.o. daily Continue statin Continue Toprol-XL to 25 mg p.o. twice daily I/O monitoring Daily weights Tentative plan for discharge on 09/13/2024: Renal function has improved, resume Bumex at lower dose of 1 mg daily starting 09/13/2024 x 1 day, (2) Acute on chronic respiratory failure with hypoxia and hypercapnia: Likely combination of COPD and CHF Chest x-ray did not show any infiltrates (3) Chronic obstructive pulmonary disease: Continue AVAPS when sleeping and at bedtime Patient is on 2 L of oxygen at baseline Bio fire is negative Pro-Arnol is less than 0.02 CT of the chest from 09/08/2024 does not show any evidence of pneumonia or consolidation Continue home inhalers Continue nebs as needed (4) Obesity hypoventilation syndrome: (5) Severe obstructive sleep apnea: (6) Morbid obesity with BMI of 50.0-59.9, adult: (7) Type 2 diabetes mellitus: A1c 6.2 Pharmacy consulted fo (8) Hypothyroidism: (9) Mixed hyperlipidemia: (10) Hypertension: Plan #Constipation MiraLAX plus senna #Cellulitis of left lower extremity Patient was started on Keflex outpatient on 09/04/2024, continue and finish 7- day course until 09/12/2024 Improvement in cellulitis noted #Hypothyroidism Continue levothyroxine home dose #Anxiety/depression Continue quetiapine, prazosin and desvenlafaxine CODE STATUS: Full code DVT prophylaxis: Lovenox 40 mg subcutaneous daily Discharge planning once patient has bowel movement. Admission HPI Per Admitting Provider 59-year-old female presenting to ED for via EMS for worsening SOB. ED course: CBC WBC 14.70, neutrophil predominant 7.89, lymphocytes 5.29, monocytes 1.29; BMP potassium 3.0, chloride 82, carbon dioxide 45, BUN 25, BUN/creatinine ratio 27.5, glucose 177, calcium 10.4; troponin 11.5; BNP 32; BioFire negative; CXR cardiomegaly without evidence of pulmonary edema; EKG sinus tach, premature supraventricular complexes, rate 104, MN 162, QRS 80, QT/QTc 340/457. On 2 L O2 at baseline.; Provided with bumetanide + KCl in ED. Patient 59 female PMHx COPD, HFpEF, chronic respiratory failure with hypoxia and hypercapnia, patient cell lung cancer, anemia, obesity, metabolic syndrome, severe BOBBI, hypothyroidism, depression, fatty liver, and anxiety presenting for worsening shortness of breath. States that 5 days ago she noticed worsening shortness of breath, that worsened 4 days ago. Had weaned herself and had a 20 pound weight gain over the course of 3 weeks, as well as edema in bilateral lower extremities. 3 days [employer] she states that symptoms were afterwards, she had the worst shortness of breath and had worsening edema to the point where she was unable to get her pants over her legs. Went to [facility] in [place] who diagnosed her with cellulitis, providing her with antibiotic (cephalexin), and prednisone. Patient has been taking these medications as prescribed. States that she did make an appointment and saw her PCP the day of arrival who recommended that she go to ED for further evaluation. Patient states that overall the shortness of breath has been improving since going to the ED days ago, and she feels her swelling has gone down some. Has been taking diuretics as prescribed. Is not having any coughing or sputum production. Has chest pressure while coughing. Does admit to constipation very hard BM last evening. Denying current chest pain, palpitations, abdominal pain, N/V/D, urinary symptoms, numbness/tingling, fever/chills or syncopal episodes. Took a.m. medications. Please see Dr. Goins's attestation for adjustments/additions to treatment plan. Discharge Exam GENERAL APPEARANCE NAD, activity normal for age, well developed/ well nourished, no cyanosis, pallor, or diaphoresis. EYES lids/conjunctiva normal. EARS/NOSE/THROAT Mucous membranes moist, nares normal, lips/teeth normal uvula midline without oral pharyngeal erythema, exudate or swelling TMs normal bilaterally. No lymphangitis/lymphedema. HEAD/NECK normocephalic atraumatic, no facial trauma, neck is supple. RESPIRATORY respiratory effort normal, speaks in full sentences, no tripod position, no accessory muscle use. Lungs clear to auscultation without rhonchi, wheezes, rales CARDIAC Regular rate and rhythm, no edema. ABDOMINAL Soft, ND/NT. No evidence of fluid wave. No pulsatile masses on exam, rebound tenderness, Servin sign or pain over Mcburney's point. MUSCLES/EXTREMITIES No abnormal range of motion, no swelling. SKIN Warm, pink and dry. No rashes, dermatoses, petechiae or lesions. NEUROLOGICAL Speech is clear and appropriate. Normal level of consciousness. Gait and coordination are normal. 5/5 strength in all extremities. PSYCH Normal mood and affect. Judgement/competence is appropriate Discharge Plan Discharge Items Patient Disposition: Home - Self-Care Reason For Visit: HYPOXIA Discharge Diagnosis: Acute on chronic heart failure with presered ejectin fraction Activity: Resume your previous activity Non-emergency contact: Primary Care Provider Call non-emergency contact if: you have any medication questions Follow-up/Referrals: Barbara Deng DO [Primary Care Provider] - Diet: Carb Consistent or DM2 Addtl Attending Provider Instructions: Follow up with PCP in 1 week Pending Studies at Discharge: No Stand-Alone Forms: [employer], Smoking Cessation Medications and DC Order Prescriptions: Continued ascorbic acid (vitamin C) 500 mg tablet 500 mg PO BID Qty: 60 0RF Rx Instructions: Unable to verify OTC meds at this date/time. (DME) OneTouch Ultra Test Strip See Rx Instructions .Route Qty: 100 2RF Rx Instructions: As directed; QID Trelegy Ellipta 100-62.5-25 mcg blister with device 1 inh inhalation DAILY Qty: 60 2RF Rx Instructions: CONFIRMED ON [facility] DC SUMMARY 01/05 (DME) pen needle, diabetic [Comfort EZ Pen [place]] 31 gauge x 1/4" needle See Rx Instructions .Route Qty: 100 2RF Rx Instructions: use 1 needle QD with Victoza albuterol sulfate 90 mcg/actuation HFA aerosol inhaler 2 puff inhalation Q6H PRN (Reason: shortness of breath or wheezing) Qty: 18 3RF Rx Instructions: Unable to verify med with patient/pharmacy at this date/time. nystatin 100,000 unit/gram ointment 1 applic topical TID Qty: 30 3RF Rx Instructions: Unable to verify med with patient/pharmacy at this date/time. (DME) insulin syringes (disposable) 1 mL syringe See Rx Instructions .ROUTE .MEDSUPPLY Qty: 500 1RF Rx Instructions: Test BS qid. Dx: E11.9 Farxiga 10 mg tablet 10 mg PO DAILY Qty: 90 2RF levothyroxine 200 mcg tablet 200 mcg PO DAILY Qty: 90 3RF triamcinolone acetonide 0.025 % cream 1 applic topical DAILY PRN (Reason: rash) Qty: 80 0RF (DME) OneTouch Ultra Test Strip See Rx Instructions .Route Qty: 500 1RF Rx Instructions: Test glucose QID DX CODE: E11.9 (DME) lancets 33 gauge misc See Rx Instructions .Route Qty: 500 1RF Rx Instructions: Test Glucose QID DX CODE: E11.9 nystatin 100,000 unit/gram powder 1 applic topical BID Qty: 180 1RF Rx Instructions: Apply under breast, along abd pannus, groin PRN. Unable to verify med with patient/pharmacy at this date/time. cholecalciferol (vitamin D3) 50 mcg (2,000 unit) tablet 50 mcg PO DAILY Qty: 28 5RF pantoprazole 40 mg tablet,delayed release (DR/EC) 40 mg PO BID Qty: 180 1RF cyclobenzaprine 10 mg tablet 10 mg PO BID PRN (Reason: muscle spasm) Qty: 60 1RF bumetanide 1 mg tablet 4 mg PO DAILY Qty: 360 3RF ketoconazole 2 % shampoo 1 applic topical Q14D Qty: 120 0RF amlodipine 2.5 mg tablet 2.5 mg PO DAILY Qty: 30 2RF atorvastatin 20 mg tablet 20 mg PO DAILY Qty: 90 3RF famotidine 40 mg tablet 40 mg PO HS Qty: 30 5RF Suflave 178.7-7.3-0.5 gram recon soln See Rx Instructions PO .COMPLEX Qty: 2 0RF Rx Instructions: orally; orally; TAKE FIRST DOSE AT 6 PM AND SECOND DOSE 6 HOURS PRIOR TO PROCEDURE BIN: [id number] N: 2000 GROUP: [id number] prazosin 1 mg capsule 3 mg PO QPM Rx Instructions: CONFIRMED ON [facility] DC SUMMARY 01/05 metolazone 5 mg tablet 5 mg PO DAILY PRN (Reason: Other) Qty: 30 1RF Rx Instructions: Take 1 tablet daily 30 min before bumetanide until body weight is at baseline, then take only as needed. metoprolol succinate 50 mg tablet extended release 24 hr 25 mg PO DAILY Qty: 90 1RF diclofenac sodium 1 % gel 2 g topical QID Qty: 100 2RF Rx Instructions: apply to right shoulder. Unable to verify OTC meds at this date/time. clotrimazole-betamethasone 1-0.05 % cream 1 applic topical BID 14 Days Qty: 45 2RF Rx Instructions: Unable to verify med with patient/pharmacy at this date/time. prednisone 50 mg tablet 50 mg PO DAILY Rx Instructions: x7days -STOP 09/11. Start Date 09/05/24 x7 day supply cephalexin 500 mg capsule 500 mg PO Q8H Rx Instructions: x7days stop 09/11. Start Date 09/05/24 x7 day supply desvenlafaxine succinate 25 mg tablet extended release 24 hr 25 mg PO DAILY budesonide 0.5 mg/2 mL suspension for nebulization 0.25 mg inhalation BID PRN (Reason: Other) Qty: 180 0RF Rx Instructions: Unable to verify med with patient/pharmacy at this date/time. ipratropium-albuterol 0.5 mg-3 mg(2.5 mg base)/3 mL solution for nebulization 3 ml inhalation QID PRN (Reason: Shortness Of Breath Or Wheezing) Qty: 180 0RF Mounjaro 7.5 mg/0.5 mL pen injector 7.5 mg SUBCUT Q7D Qty: 2 1RF quetiapine 50 mg tablet extended release 24 hr 50 mg PO UD Rx Instructions: Take 50mg w/ 50mg (2 x 25mg) tablets at bedtime to equal 100mg quetiapine 25 mg tablet 50 mg PO UD Rx Instructions: Take 50mg (2 x 25mg) w/ 50mg tablet at bedtime to equal 100mg gabapentin 300 mg capsule 300 mg PO TID Qty: 90 5RF Discharge Orders: Discharge Order (Routine); Ordered 09/13/24 Ordered By: Casimiro Rossi Admission Data Admit Date/Time: 09/07/24 13:06 Attending Provider: Casimiro Rossi Admit Provider: Jorje Goins Primary Care Provider: Barbara Deng Other Providers: Jorje Goins Hospital Stay Data Consultations 09/07/24 12:26 ED Decision to Admit Stat Diagnostic Imagining Performed 09/08/24 12:01 CT chest diagnostic wo con Stat Pending Results Patient Have Any Pending Studies at Discharge: No Discharge Instructions Given to Patient (Per Discharging Provider) Follow up with PCP in 1 week Total Time Total Time Spent Total Time Spent (In Minutes): 50 Coding Level of Care Code 41976 INP/OBS DISCH >30 MIN Diagnoses Acute on chronic heart failure with preserved ejection fraction (HFpEF) I50.33 Acute on chronic respiratory failure with hypoxia and hypercapnia J96.21; J96.22 Chronic obstructive pulmonary disease J44.9 COPD type: unspecified COPD Obesity hypoventilation syndrome E66.2 Severe obstructive sleep apnea G47.33 Morbid obesity with BMI of 50.0-59.9, adult E66.01; Z68.43 Type 2 diabetes mellitus E11.9 Hypothyroidism E03.9 Mixed hyperlipidemia E78.2 Hypertension I10 Hypertension type: essential hypertension
[2024-09-13 11:31] VITALS: BP 113/70; RESP 18; TEMP 97.7
[2024-09-13 13:46] VITALS: PULSE 98
== END 2024-09-13 16:30 | disposition home or self-care (01) | DRG 291 ==
LOC: ED 09:18 → 2N 13:06 → SUATTDRO 13:06 → INTOOBSV 13:06 → 2N 16:00 → UNDODISIN 09-13 15:34

== ENCOUNTER 2025-04-02 09:38 | Inpatient (IN) ==
--- NOTE | 2025-04-02 10:36 | XRay Report ---
XR chest 1V portable HISTORY: 60 years-old Female Dyspnea COMPARISON: September 26, 2024 TECHNIQUE: AP view of the chest FINDINGS: Cardiac silhouette is enlarged. Pulmonary vascular congestion. Obesity and positioning limits this st udy. No pneumothorax, or large pleural effusion. Probable mild bibasilar atelectasis. Bones appear gr ossly intact. Atherosclerosis of the aorta. IMPRESSION: Cardiomegaly with suggestion of pulmonary vascular congestion and bibasilar atelectasis. ACT 112: Negative or not required by law. The above report was generated using voice recognition software. It may contain grammatical, syntax o r spelling errors. Electronically signed by: Eduin Briseno M.D. 04/02/2025 10:34 AM
[2025-04-02 11:15] LABS: Hematocrit (blood only) 39.5 % (37.0-47.0); Hemoglobin 12.4 g/dl (12.0-16.0); Immature Granulocytes # (auto) 0.02 K/uL (0.01-0.20); Immature Granulocytes % (auto) 0.3 %; Mean Corpuscular Hemoglobin 28.3 pg (25.0-34.0); Mean Corpuscular Volume 90.2 fL (80.0-100.0); Platelet Count 204 K/uL (130-400); RDW Standard Deviation 49.4 fL (36.4-46.3); Red Blood Count 4.38 M/uL (4.20-5.40); White Blood Count 7.68 K/ul (4.8-10.8)
[2025-04-02 11:34] LABS: Alanine Aminotransferase 18 U/L (7-52); Albumin Globulin Ratio 1.2 (0.9-2); Alkaline Phosphatase 130 U/L (34-104); Anion Gap 4 (3-11); Bilirubin,Total 0.6 mg/dl (0.2-1.0); Blood Urea Nitrogen 17 mg/dl (6-23); Calcium 9.2 mg/dl (8.6-10.3); Carbon Dioxide 35 mmol/L (21-32); Chloride 101 mmol/L (98-107); Globulin 3.4 gm/dl (2.5-4.0); Glucose 96 mg/dl (70-99(Fasting)); Potassium 4.4 mmol/L (3.5-5.1); Sodium 140 mmol/L (136-145); Total Protein 7.5 gm/dl (6.0-8.3)
[2025-04-02] MEDS: Patient's HEIGHT &/or WEIGHT Needed STA (13:33)
--- NOTE | 2025-04-02 13:40 | History & Physical Report ---
Date of Service April 02, 2025 Assessment & Plan (1) Severe obstructive sleep apnea: (2) Type 2 diabetes, controlled, with neuropathy: (3) Acute on chronic heart failure with preserved ejection fraction (HFpEF): (4) Hypertension: Plan The patient presents the emergency department with continued shortness of breath and lower extremity edema despite recent increases in bumetanide as outpatient, and addition on 03/28/2025 at heart failure clinic of metolazone 5 mg every other day, and potassium chloride ER 40 mg twice daily. She was told that if her symptoms do not significantly improve, that she was to return to the emergency department, and she has presented in today for further evaluation. She has not taken her bumetanide or metolazone yet today. Patient will be admitted after giving Bumex 1 mg IV in ED, with increasing doses 1 mg IV twice daily. She has had an echocardiogram on 09/09/2024 with ejection fraction greater than 70. Acute on chronic heart failure with preserved ejection fraction- Hold Bumex 2 mg p.o. twice daily and metolazone 5 mg p.o. q. other day Give Bumex 1 mg IV now, then 1 mg IV twice daily Most recent echocardiogram on 09/09/2014 showed ejection fraction greater than 70% Will order a limited echocardiogram to assess for EF changes Follow serial CBC with differential, chemistry profile and magnesium level Continue amlodipine 2.5 mg daily Continue Farxiga Diabetes mellitus- Decrease glargine from 12 to 6 units subcu every evening Placed on Accu-Cheks and NovoLog SSI Severe obstructive sleep apnea- Continue, and albuterol nebulizers as needed GERD- Continue pantoprazole twice daily and famotidine 40 mg at bedtime History of Present Illness Chief Complaint: The patient was advised to present to the emergency department by heart failure clinic, if her symptoms did not improve after increasing dosages of Bumex, and the institution of metolazone and potassium chloride as last office visit on 03/28/2025. Primary Care Provider: Barbara Deng, DO The patient presents the emergency department with continued shortness of breath and lower extremity edema despite recent increases in bumetanide as outpatient, and addition on 03/28/2025 at heart failure clinic of metolazone 5 mg every other day, and potassium chloride ER 40 mg twice daily. She was told that if her symptoms do not significantly improve, that she was to return to the emergency department, and she has presented in today for further evaluation. She has not taken her bumetanide or metolazone yet today. Allergies Allergy/AdvReac Type Severity Reaction Status Date / Time bupropion Allergy Unknown Hives Verified 03/28/25 09:03 Sulfa (Sulfonamide Allergy Unknown Hives Verified 03/28/25 09:03 Antibiotics) Home Medications Medication Instructions Recorded Confirmed Type prazosin 1 mg capsule 3 mg PO HS 01/12/22 04/02/25 History blood sugar diagnostic (OneTouch #100 ea 03/26/22 03/28/25 Rx Ultra Test strips) pen needle, diabetic 31 gauge x #100 ea 07/18/23 03/28/25 Rx 1/4" (Comfort EZ Pen [place]) insulin syringes (disposable) 1 mL #500 ea 01/25/24 03/28/25 Rx triamcinolone acetonide 0.025 % 1 applic topical DAILY PRN rash 05/02/24 04/02/25 Rx topical cream #80 grams metoprolol succinate 50 mg 25 mg (1/2 x 50 mg) PO DAILY #90 05/31/24 04/02/25 Rx tablet,extended release 24 hr tabs lancets 33 gauge #500 ea 06/06/24 03/28/25 Rx atorvastatin 20 mg tablet 20 mg PO DAILY #90 tabs 09/06/24 04/02/25 Rx budesonide 0.5 mg/2 mL suspension 0.25 mg inhalation BID PRN Other 09/07/24 04/02/25 Rx for nebulization #180 mL ipratropium 0.5 mg-albuterol 3 mg 3 ml inhalation QID PRN Shortness 09/07/24 04/02/25 Rx (2.5 mg base)/3 mL nebulization Of Breath Or Wheezing #180 mL [facility] ([facility] #1 ea 10/02/24 03/28/25 Rx Bed) Hospital Bed Repair #1 ea 10/26/24 03/28/25 Rx blood-glucose meter (OneTouch #1 ea 11/05/24 03/28/25 Rx Ultra2 Meter) levothyroxine 200 mcg tablet 200 mcg PO DAILY #90 tabs 11/19/24 04/02/25 Rx levothyroxine 25 mcg tablet 25 mcg PO DAILY #90 tabs 11/19/24 04/02/25 Rx dapagliflozin propanediol 10 mg 10 mg PO DAILY #90 tabs 11/26/24 04/02/25 Rx tablet (Farxiga) insulin lispro 100 unit/mL See Rx Instructions subcut QID #20 11/30/24 04/02/25 Rx subcutaneous solution mL cholecalciferol (vitamin D3) 50 50 mcg PO DAILY #28 tabs 12/26/24 04/02/25 Rx mcg (2,000 unit) tablet ketoconazole 2 % shampoo 1 applic topical Q14D #120 mL 12/26/24 04/02/25 Rx albuterol sulfate 90 mcg/actuation 2 puff inhalation Q6H PRN 02/07/25 04/02/25 Rx aerosol inhaler shortness of breath or wheezing #18 grams blood sugar diagnostic (OneTouch #500 ea 02/07/25 03/28/25 Rx Ultra Test strips) insulin glargine 100 unit/mL 12 unit (0.12 mL) subcut QPM #10 mL 02/07/25 04/02/25 Rx subcutaneous solution (Lantus U-100 Insulin) nebulizer machine and accessories #1 ea 02/08/25 03/28/25 Rx clonazepam 1 mg tablet 1 mg PO BID 02/13/25 04/02/25 History amlodipine 2.5 mg tablet 2.5 mg PO DAILY #30 tabs 02/21/25 04/02/25 Rx famotidine 40 mg tablet 40 mg PO HS #30 tabs 02/21/25 04/02/25 Rx pantoprazole 40 mg tablet,delayed 40 mg PO BID 02/25/25 04/02/25 History release pregabalin 150 mg capsule 150 mg PO BID #60 caps 02/25/25 04/02/25 Rx tirzepatide 10 mg/0.5 mL 10 mg (0.5 mL) subcut Q7D #2 mL 02/27/25 04/02/25 Rx subcutaneous pen injector 4 pronged cane #1 ea 03/08/25 03/28/25 Rx Hospital Bed Repairs #1 ea 03/08/25 03/28/25 Rx Lift Recliner #1 ea 03/08/25 03/28/25 Rx nystatin 100,000 unit/gram topical 1 applic topical TID #180 grams 03/08/25 04/02/25 Rx powder Inogen Portable oxygen #1 ea 03/21/25 03/28/25 Rx diclofenac sodium 1 % topical gel 2 g topical QID #100 grams 03/27/25 04/02/25 R x metolazone 5 mg tablet 5 mg PO Q OTHER DAY #15 tabs 03/28/25 04/02/25 Rx potassium chloride 20 mEq 40 meq (2 x 20 mEq) PO BID #120 03/28/25 04/02/25 Rx tablet,extended release tabs bumetanide 2 mg tablet 2 mg PO BID 04/02/25 04/02/25 History cephalexin 500 mg capsule 500 mg PO QID 04/02/25 04/02/25 History cyclobenzaprine 10 mg tablet 10 mg PO BID muscle spasm 04/02/25 04/02/25 History desvenlafaxine succinate 100 mg 100 mg PO DAILY 04/02/25 04/02/25 History tablet,extended release 24 hr ferrous sulfate 325 mg (65 mg 325 mg PO DAILY 04/02/25 04/02/25 History iron) tablet (FeroSul) ofloxacin 0.3 % eye drops 1 drp OPB QID 04/02/25 04/02/25 History topiramate 50 mg tablet 75 mg PO DAILY 04/02/25 04/02/25 History Past Med/Surg History Problem List (Updated 02/26/25 @ 04:18 by Barbara Deng, ) Severe obstructive sleep apnea Type 2 diabetes mellitus Type 2 diabetes, controlled, with neuropathy Mixed hyperlipidemia Hypertension Dietary counseling and surveillance (Chronic) Partial tear of right rotator cuff Seborrheic dermatitis B12 deficiency Diabetic neuropathy (HFpEF) heart failure with preserved ejection fraction NSTEMI (non-ST elevated myocardial infarction) Right cervical radiculopathy Adhesive capsulitis of right shoulder Left knee DJD Osteoarthritis of right shoulder Chronic right shoulder pain Morbid obesity with BMI of 60.0-69.9, adult (Chronic) H/O: iron deficiency anemia Chronic respiratory failure Mass of lung Urinary incontinence Knee osteoarthritis Essential tremor PTSD (post-traumatic stress disorder) Hypothyroidism (Chronic) Vitamin D deficiency (Chronic) Hearing difficulty Fatty liver (Chronic) Depression (Chronic) Arthritis Anxiety Allergic rhinitis Acne Acid reflux (Chronic) Medical History (Updated 02/26/25 @ 04:18 by Barbara Deng DO) Hypervolemia Hypokalemia Metabolic syndrome Diabetes type 2, uncontrolled CHF exacerbation Acute on chronic heart failure with preserved ejection fraction (HFpEF) Acute on chronic respiratory failure with hypercapnia Cellulitis of left anterior lower leg Acute on chronic respiratory failure with hypoxia and hypercapnia Obesity hypoventilation syndrome Chronic obstructive pulmonary disease Candidal intertrigo Abnormal uterine bleeding Trochanteric bursitis of left hip Pneumonia Erythema of lower extremity Food sticks on swallowing Acute on chronic respiratory acidosis Sepsis Meckel's diverticulitis SBO (small bowel obstruction) Cellulitis Elevated troponin COVID-19 Personal history of COVID-19 Hepatic encephalopathy Lung cancer H/O renal calculi H/O: pneumonia Surgical History Status post tracheostomy (11/25/21) H/O lithotripsy H/O prior ablation treatment Uterine.2005 H/O tympanostomy History of tonsillectomy Previous section History of adenoidectomy Family History Father Alcohol abuse Cardiac disorder Diabetes Gallbladder disease Hypertension Depression Mother Anxiety Depression Diabetes Hypertension Stroke Sister Breast cancer Depression Heart disease, congenital Rectal cancer Grandmother (Maternal) Lung disease Grandfather (Maternal) Heart disease Colorectal cancer Prostate cancer Denies family history of Ovarian cancer Myocardial infarction Social History Smoking Status: Never smoker Tobacco Type: Cigarettes Age Started Using Tobacco: 16; Age Quit Using Tobacco: 29; packs per day: 1; Second Hand Exposure: No; Do You Dip or Chew Tobacco: No; Hx Alcohol Use: No Hx Substance Use: No Preferred Language: Thai Communication Ability: Effective Visual Impairment: Limited Hearing Ability: Hard of Hearing Education Associate Required: No Beliefs That Will Affect Care: None marital status: Unknown Current Living Situation: Other Current Living Situation Comment: lives with 24/7 caregiver current occupational status: disabled Feels Safe at Home: Yes Childhood Exposure to Second-Hand Smoke: Yes Diet Comment: Tries to maintain healthy diet. caffeine: Yes (Tea x 2 cups a day.) during the past year weight has: decreased > 10 lbs Dental Care, Regularly: No Physical Activity Frequency: Does not Exercise Physical Activity Frequency Comment: Limited by physical condition Seatbelt Use: always Sunscreen Use: Yes Assistive Devices: Bedside Commode, Cane, CPAP, Oxygen - Continuous, Stair Lift and Walker Review of Systems Review of Systems: The patient denies chest pain, palpitations, cough, sore throat, fevers, chills, sweats, nausea, vomiting, diarrhea , constipation, abdominal pain, pelvic pain, blood in urine or stool, dysuria, urinary frequency or urgency, lightheadedness, dizziness, headache, memory loss, loss of consciousness, rash, abnormal bruising or bleeding, imbalance, focal weakness, numbness or tingling in arms or legs, generalized arthralgias or myalgias, back or neck pain, or night sweats. The review of systems is otherwise negative other than for that already noted above, and at least 10 systems have been reviewed. Physical Exam Physical Exam: The patient is awake, alert and oriented 3, well developed and well nourished, normocephalic and atraumatic, lying in bed and in no acute distress. HEENT--PERRL, EOMI, mucous membranes and oropharynx mildly dry. Neck--supple. No JVD. No bruits. Thyroid normal, trachea midline, no adenopathy. Heart--normal S1 and S2. No murmurs, rubs or gallops. Lungs--crackles at the bases bilaterally Abdomen--normal bowel sounds and soft. Nontender. Nondistended. obese Extremities--1+ bilateral pretibial pitting edema Dermatologic--normal skin turgor, normal color, no abnormal lymph nodes, no rash. Neurologic--cranial nerves II through XII grossly intact. Rheumatologic--normal range of motion. Psychiatric--normal affect. Results & Data Results & Data Vital Signs (Past 12 Hours) Vital Signs Temp Pulse Resp BP Pulse Ox O2 Del Method O2 Flow Rate 04/02/25 12:48 100 Nasal Cannula 4 04/02/25 12:47 75 L Room Air 04/02/25 12:30 145/92 H 04/02/25 12:30 145/92 H 04/02/25 12:30 82 13 100 04/02/25 12:06 83 22 100 04/02/25 12:00 84 12 125/93 100 Nasal Cannula 2 04/02/25 11:00 83 20 100 Nasal Cannula 2 04/02/25 10:48 84 04/02/25 10:40 Nasal Cannula 2 04/02/25 09:46 36.3 C L 80 20 138/54 L 100 Nasal Cannula 2 Laboratory Results Laboratory Results WBC 7.68 K/ul (4.8-10.8) 04/02/25 10:55 RBC 4.38 M/uL (4.20-5.40) 04/02/25 10:55 Hgb 12.4 g/dl (12.0-16.0) 04/02/25 10:55 Hct 39.5 % (37.0-47.0) 04/02/25 10:55 MCV 90.2 fL (80.0-100.0) 04/02/25 10:55 MCH 28.3 pg (25.0-34.0) 04/02/25 10:55 MCHC 31.4 g/dL (32.0-36.0) L 04/02/25 10:55 RDW Std Deviation 49.4 fL (36.4-46.3) H 04/02/25 10:55 RDW Coeff of Carol 14.9 % (11.5-14.5) H 04/02/25 10:55 Plt Count 204 K/uL (130-400) 04/02/25 10:55 MPV 11.7 fL (9.4-12.4) 04/02/25 10:55 Immature Gran % (Auto) 0.3 % 04/02/25 10:55 Neut % (Auto) 53.3 % 04/02/25 10:55 Lymph % (Auto) 32.6 % 04/02/25 10:55 [place] % (Auto) 9.1 % 04/02/25 10:55 Eos % (Auto) 4.0 % 04/02/25 10:55 Baso % (Auto) 0.7 % 04/02/25 10:55 Neut # (Auto) 4.10 K/uL (1.40-6.50) 04/02/25 10:55 Lymph # (Auto) 2.50 K/uL (1.20-3.40) 04/02/25 10:55 Jess[place] # (Auto) 0.70 K/uL (0.11-0.59) H 04/02/25 10:55 Eos # (Auto) 0.31 K/uL (0.00-0.50) 04/02/25 10:55 Baso # (Auto) 0.05 K/uL (0.00-0.20) 04/02/25 10:55 Immature Gran # (Auto) 0.02 K/uL (0.01-0.20) 04/02/25 10:55 Sodium 140 mmol/L (136-145) 04/02/25 10:55 Potassium 4.4 mmol/L (3.5-5.1) D 04/02/25 10:55 Chloride 101 mmol/L (98-107) 04/02/25 10:55 Carbon Dioxide 35 mmol/L (21-32) H 04/02/25 10:55 Anion Gap 4 (3-11) 04/02/25 10:55 BUN 17 mg/dl (6-23) 04/02/25 10:55 Creatinine 0.66 mg/dl (0.6-1.2) 04/02/25 10:55 Est Cr Clr Drug Dosing Not Reportable 04/02/25 10:55 eGFR 99.12 04/02/25 10:55 BUN/Creatinine Ratio 25.8 (10-20) H 04/02/25 10:55 Glucose 96 mg/dl (70-99(Fasting)) 04/02/25 10:55 Calcium 9.2 mg/dl (8.6-10.3) 04/02/25 10:55 Total Bilirubin 0.6 mg/dl (0.2-1.0) 04/02/25 10:55 AST 27 U/L (13-39) 04/02/25 10:55 ALT 18 U/L (7-52) 04/02/25 10:55 Alkaline Phosphatase 130 U/L (34-104) H 04/02/25 10:55 Troponin I High Sens 5.5 pg/ml (0-14) 04/02/25 10:55 B-Natriuretic Peptide 13 pg/ml (0-100) 04/02/25 10:55 Total Protein 7.5 gm/dl (6.0-8.3) 04/02/25 10:55 Albumin 4.1 gm/dl (3.4-5.0) 04/02/25 10:55 Globulin 3.4 gm/dl (2.5-4.0) 04/02/25 10:55 Albumin/Globulin Ratio 1.2 (0.9-2) 04/02/25 10:55 Impressions Chest X-Ray 04/02/25 10:08 XR chest 1V portable HISTORY: 60 years-old Female Dyspnea COMPARISON: September 26, 2024 TECHNIQUE: AP view of the chest FINDINGS: Cardiac silhouette is enlarged. Pulmonary vascular congestion. Obesity and pos itioning limits this study. No pneumothorax, or large pleural effusion. Probable mild bibasilar atelectasis. Bones appear grossly intact. Atherosclerosis of the aorta. IMPRESSION: Cardiomegaly with suggestion of pulmonary vascular congestion and bibasilar atelectasis. ACT 112: Negative or not required by law. The above report was generated using voice recognition software. It may contain grammatical, syntax or spelling errors. Electronically signed by: Eduin Briseno M.D. 04/02/2025 10:34 AM Code Status & VTE Plan Code Status Full code VTE Prophylaxis Plan VTE Prophylaxis will be ordered: Yes PG Care Time/CCT Total # of Minutes Spent Total Time Spent with Patient: Total time spent is greater than 50% in coordination of care (as documented) at patient's floor/unit and/or counseling patient: Coding Level of Care Code 22672 INT INP/OBS CARE 3/75MIN Diagnoses Severe obstructive sleep apnea G47.33 Type 2 diabetes, controlled, with neuropathy E11.40 Acute on chronic heart failure with preserved ejection fraction (HFpEF) I50.33 Hypertension I10 Hypertension type: essential hypertension (4) Hypertension Hypertension type: essential hypertension Qualified Code(s): I10 - Essential (primary) hypertension
[2025-04-02 13:52] LABS: Appearance Urine Cloudy (Clear); Bacteria Urine Automated None Seen (None Seen); Cast Urine Automated 0-2 /lpf (0-2); Glucose Urine UA 2+ (Negative); Starch Talc Urine Present (None Prsent); WBC Urine Automated 0-5 /hpf (0-5)
[2025-04-02] MEDS: BUMETANIDE 1 MG in SYRINGE 0 ML IV ONE (14:06)
--- NOTE | 2025-04-02 15:28 | Emergency Department Note ---
ED Provider Note History of Present Illness Chief Complaint: Shortness of Breath/Dyspnea Stated Complaint: SOB, FLUID RETENTION Time Seen by Provider: 04/02/25 09:50 Source: patient Mode of arrival: ambulatory Limitations: no limitations Patient is a 60 year old female that presents to the emergency department with complaints of shortness of breath. Patient reports that her symptoms have persisted for approximately a week. Patient notes increased swelling to her bilateral lower extremities. Patient notes that she always has swelling in her legs but notes that it is worse today. Patient wears 2L oxygen continuously at baseline. but notes that she has had to increase it to 3-4 liters recently. Patient was seen at [facility] recently, as well as her cardiologists office and diagnosed with heart failure. Patient was advised by her systems software specialist that if her SOB got worse, she should come to the hospital for likely admission and close monitoring. Home Medications Medication Instructions Recorded Confirmed Type prazosin 1 mg capsule 3 mg PO HS 01/12/22 04/02/25 History blood sugar diagnostic (OneTouch #100 ea 03/26/22 03/28/25 Rx Ultra Test strips) pen needle, diabetic 31 gauge x #100 ea 07/18/23 03/28/25 Rx 1/4" (Comfort EZ Pen [place]) insulin syringes (disposable) 1 mL #500 ea 01/25/24 03/28/25 Rx triamcinolone acetonide 0.025 % 1 applic topical DAILY PRN rash 05/02/24 04/02/25 Rx topical cream #80 grams metoprolol succinate 50 mg 25 mg (1/2 x 50 mg) PO DAILY #90 05/31/24 04/02/25 Rx tablet,extended release 24 hr tabs lancets 33 gauge #500 ea 06/06/24 03/28/25 Rx atorvastatin 20 mg tablet 20 mg PO DAILY #90 tabs 09/06/24 04/02/25 Rx budesonide 0.5 mg/2 mL suspension 0.25 mg inhalation BID PRN Other 09/07/24 04/02/25 Rx for nebulization #180 mL ipratropium 0.5 mg-albuterol 3 mg 3 ml inhalation QID PRN Shortness 09/07/24 04/02/25 Rx (2.5 mg base)/3 mL nebulization Of Breath Or Wheezing #180 mL [facility] Bed Homecare (Hospital #1 ea 10/02/24 03/28/25 Rx Bed) Hospital Bed Repair #1 ea 10/26/24 03/28/25 Rx blood-glucose meter (OneTouch #1 ea 11/05/24 03/28/25 Rx Ultra2 Meter) levothyroxine 200 mcg tablet 200 mcg PO DAILY #90 tabs 11/19/24 04/02/25 Rx levothyroxine 25 mcg tablet 25 mcg PO DAILY #90 tabs 11/19/24 04/02/25 Rx dapagliflozin propanediol 10 mg 10 mg PO DAILY #90 tabs 11/26/24 04/02/25 Rx tablet (Farxiga) insulin lispro 100 unit/mL See Rx Instructions subcut QID #20 11/30/24 04/02/25 Rx subcutaneous solution mL cholecalciferol (vitamin D3) 50 50 mcg PO DAILY #28 tabs 12/26/24 04/02/25 Rx mcg (2,000 unit) tablet ketoconazole 2 % shampoo 1 applic topical Q14D #120 mL 12/26/24 04/02/25 Rx albuterol sulfate 90 mcg/actuation 2 puff inhalation Q6H PRN 02/07/25 04/02/25 Rx aerosol inhaler shortness of breath or wheezing #18 grams blood sugar diagnostic (OneTouch #500 ea 02/07/25 03/28/25 Rx Ultra Test strips) insulin glargine 100 unit/mL 12 unit (0.12 mL) subcut QPM #10 mL 02/07/25 04/02/25 Rx subcutaneous solution (Lantus U-100 Insulin) nebulizer machine and accessories #1 ea 02/08/25 03/28/25 Rx clonazepam 1 mg tablet 1 mg PO BID 02/13/25 04/02/25 History amlodipine 2.5 mg tablet 2.5 mg PO DAILY #30 tabs 02/21/25 04/02/25 Rx famotidine 40 mg tablet 40 mg PO HS #30 tabs 02/21/25 04/02/25 Rx pantoprazole 40 mg tablet,delayed 40 mg PO BID 02/25/25 04/02/25 History release pregabalin 150 mg capsule 150 mg PO BID #60 caps 02/25/25 04/02/25 Rx tirzepatide 10 mg/0.5 mL 10 mg (0.5 mL) subcut Q7D #2 mL 02/27/25 04/02/25 Rx subcutaneous pen injector 4 pronged cane #1 03/08/25 03/28/25 Rx Hospital Bed Repairs #1 ea 03/08/25 03/28/25 Rx Lift Recliner #1 03/08/25 03/28/25 Rx nystatin 100,000 unit/gram topical 1 applic topical TID #180 grams 03/08/25 04/02/25 Rx powder Inogen Portable oxygen #1 ea 03/21/25 03/28/25 Rx diclofenac sodium 1 % topical gel 2 g topical QID #100 grams 03/27/25 04/02/25 Rx metolazone 5 mg tablet 5 mg PO Q OTHER DAY #15 tabs 03/28/25 04/02/25 Rx potassium chloride 20 mEq 40 meq (2 x 20 mEq) PO BID #120 03/28/25 04/02/25 Rx tablet,extended release tabs bumetanide 2 mg tablet 2 mg PO BID 04/02/25 04/02/25 History cephalexin 500 mg capsule 500 mg PO QID 04/02/25 04/02/25 History cyclobenzaprine 10 mg tablet 10 mg PO BID muscle spasm 04/02/25 04/02/25 History desvenlafaxine succinate 100 mg 100 mg PO DAILY 04/02/25 04/02/25 History tablet,extended release 24 hr ferrous sulfate 325 mg (65 mg 325 mg PO DAILY 04/02/25 04/02/25 History iron) tablet (FeroSul) ofloxacin 0.3 % eye drops 1 drp OPB QID 04/02/25 04/02/25 History topiramate 50 mg tablet 75 mg PO DAILY 04/02/25 04/02/25 History Allergies Allergy/AdvReac Type Severity Reaction Status Date / Time bupropion Allergy Unknown Hives Verified 03/28/25 09:03 Sulfa (Sulfonamide Allergy Unknown Hives Verified 03/28/25 09:03 Antibiotics) Past Med/Surg History Problem List (Updated 04/03/25 @ 22:48 by LESA Silverman) Congestive heart failure (Acute) Severe obstructive sleep apnea Type 2 diabetes mellitus Type 2 diabetes, controlled, with neuropathy Mixed hyperlipidemia Hypertension Dietary counseling and surveillance (Chronic) Partial tear of right rotator cuff Seborrheic dermatitis B12 deficiency Diabetic neuropathy (HFpEF) heart failure with preserved ejection fraction NSTEMI (non-ST elevated myocardial infarction) Right cervical radiculopathy Adhesive capsulitis of right shoulder Left knee DJD Osteoarthritis of right shoulder Chronic right shoulder pain Morbid obesity with BMI of 60.0-69.9, adult (Chronic) H/O: iron deficiency anemia Chronic respiratory failure Mass of lung Urinary incontinence Knee osteoarthritis Essential tremor PTSD (post-traumatic stress disorder) Hypothyroidism (Chronic) Vitamin D deficiency (Chronic) Hearing difficulty Fatty liver (Chronic) Depression (Chronic) Arthritis Anxiety Allergic rhinitis Acne Acid reflux (Chronic) Medical History Hypervolemia Hypokalemia Metabolic syndrome Diabetes type 2, uncontrolled CHF exacerbation Acute on chronic heart failure with preserved ejection fraction (HFpEF) Acute on chronic respiratory failure with hypercapnia Cellulitis of left anterior lower leg Acute on chronic respiratory failure with hypoxia and hypercapnia Obesity hypoventilation syndrome Chronic obstructive pulmonary disease Candidal intertrigo Abnormal uterine bleeding Trochanteric bursitis of left hip Pneumonia Erythema of lower extremity Food sticks on swallowing Acute on chronic respiratory acidosis Sepsis Meckel's diverticulitis SBO (small bowel obstruction) Cellulitis Elevated troponin COVID-19 Personal history of COVID-19 Hepatic encephalopathy Lung cancer H/O renal calculi H/O: pneumonia Surgical History Status post tracheostomy (11/25/21) H/O lithotripsy H/O prior ablation treatment Uterine.2005 H/O tympanostomy History of tonsillectomy Previous section History of adenoidectomy Family History Father Alcohol abuse Cardiac disorder Diabetes Gallbladder disease Hypertension Depression Mother Anxiety Depression Diabetes Hypertension Stroke Sister Breast cancer Depression Heart disease, congenital Rectal cancer Grandmother (Maternal) Lung disease Grandfather (Maternal) Heart disease Colorectal cancer Prostate cancer Denies family history of Ovarian cancer Myocardial infarction Social History Smoking Status: Former smoker Tobacco Type: Cigarettes Age Started Using Tobacco: 16; Age Quit Using Tobacco: 29; packs per day: 1; Second Hand Exposure: No; Do You Dip or Chew Tobacco: No; Hx Alcohol Use: No Hx Substance Use: No Preferred Language: Paraguayan Communication Ability: Effective Visual Impairment: Limited Hearing Ability: Hard of Hearing Director Sterile Processing Required: No Beliefs That Will Affect Care: None marital status: Unknown Current Living Situation: Alone Current Living Situation Comment: lives with 24/7 caregiver current occupational status: disabled Feels Safe at Home: Yes Childhood Exposure to Second-Hand Smoke: Yes Diet Comment: Tries to maintain healthy diet. caffeine: Yes (Tea x 2 cups a day.) during the past year weight has: decreased > 10 lbs Dental Care, Regularly: No Physical Activity Frequency: Does not Exercise Physical Activity Frequency Comment: Limited by physical condition Seatbelt Use: always Sunscreen Use: Yes Assistive Devices: Cane, Oxygen - Continuous and Wheelchair Physical Exam Vital Signs Vital Signs - 24 hr 04/02/25 09:46 04/02/25 10:40 04/02/25 10:48 Temperature 36.3 C L Temperature Source Temporal Artery Scan Pulse Rate 80 84 Pulse Rate from SpO2 Sensor Respiratory Rate 20 Respiratory Effort / Characteristics Non-Labored Spontaneous Respiratory Depth Normal Blood Pressure 138/54 L Blood Pressure Mean 82 Blood Pressure Position Sitting Pulse Oximetry 100 Oxygen Delivery Method Nasal Cannula Nasal Cannula Oxygen Flow Rate 2 2 Sepsis Recent Fever Within 48 Hours No Sepsis New/Unexplained Change in Mental Status No Sepsis Action Taken by Nursing No Action Required Oxygen Flow Rate - Titration Pulse Oximetry Post Tiitration 04/02/25 11:00 04/02/25 12:00 04/02/25 12:06 Temperature Temperature Source Pulse Rate 83 84 83 Pulse Rate from SpO2 Sensor 85 83 Respiratory Rate 20 12 22 Respiratory Effort / Characteristics Respiratory Depth Blood Pressure 125/93 Blood Pressure Mean 100 Blood Pressure Position Pulse Oximetry 100 100 100 Oxygen Delivery Method Nasal Cannula Nasal Cannula Oxygen Flow Rate 2 2 Sepsis Recent Fever Within 48 Hours Sepsis New/Unexplained Change in Mental Status Sepsis Action Taken by Nursing Oxygen Flow Rate - Titration Pulse Oximetry Post Tiitration 04/02/25 12:30 04/02/25 12:30 04/02/25 12:30 Temperature Temperature Source Pulse Rate 82 Pulse Rate from SpO2 Sensor 84 Respiratory Rate 13 Respiratory Effort / Characteristics Respiratory Depth Blood Pressure 145/92 H 145/92 H Blood Pressure Mean 100 100 Blood Pressure Position Pulse Oximetry 100 Oxygen Delivery Method Oxygen Flow Rate Sepsis Recent Fever Within 48 Hours Sepsis New/Unexplained Change in Mental Status Sepsis Action Taken by Nursing Oxygen Flow Rate - Titration Pulse Oximetry Post Tiitration 04/02/25 12:30 04/02/25 12:47 04/02/25 12:48 Temperature Temperature Source Pulse Rate Pulse Rate from SpO2 Sensor Respiratory Rate Respiratory Effort / Characteristics Respiratory Depth Blood Pressure 145/92 H Blood Pressure Mean 100 Blood Pressure Position Pulse Oximetry 75 L 100 Oxygen Delivery Method Room Air Nasal Cannula Oxygen Flow Rate 4 Sepsis Recent Fever Within 48 Hours Sepsis New/Unexplained Change in Mental Status Sepsis Action Taken by Nursing Oxygen Flow Rate - Titration 4 Pulse Oximetry Post Tiitration 100 04/02/25 12:57 04/02/25 13:00 04/02/25 13:03 Temperature Temperature Source Pulse Rate 87 86 Pulse Rate from SpO2 Sensor 87 85 Respiratory Rate 36 H 19 Respiratory Effort / Characteristics Respiratory Depth Blood Pressure 128/89 Blood Pressure Mean 98 Blood Pressure Position Pulse Oximetry 100 100 Oxygen Delivery Method Nasal Cannula Oxygen Flow Rate 2 Sepsis Recent Fever Within 48 Hours Sepsis New/Unexplained Change in Mental Status Sepsis Action Taken by Nursing Oxygen Flow Rate - Titration Pulse Oximetry Post Tiitration 04/02/25 14:00 Temperature Temperature Source Pulse Rate 85 Pulse Rate from SpO2 Sensor Respiratory Rate 23 Respiratory Effort / Characteristics Respiratory Depth Blood Pressure 120/75 Blood Pressure Mean 83 Blood Pressure Position Pulse Oximetry 100 Oxygen Delivery Method Nasal Cannula Oxygen Flow Rate 2 Sepsis Recent Fever Within 48 Hours Sepsis New/Unexplained Change in Mental Status Sepsis Action Taken by Nursing Oxygen Flow Rate - Titration Pulse Oximetry Post Tiitration VITAL SIGNS - Vital signs and nursing notes were reviewed. GENERAL -60-year-old female appearing their stated age, who is in no acute distress. Communicates well with provider and answers questions appropriately. Patient's family member is at bedside. HEAD - Normocephalic, Atraumatic. No Jacques's Sign or Raccoon's Eyes. EYES - PERRL with EOMI bilaterally. Sclera anicteric. Conjunctiva pink and moist with no injection noted. NECK - Neck with FROM. Supple to palpation. No lymphadenopathy noted. LUNGS - Chest wall symmetric without accessory muscle use, intercostals retractions, or central cyanosis. Clear but diminished breath sounds noted. Patient has increased work of breathing noted. CARDIAC - RRR with S1/S2. No murmur, rubs, or gallops appreciated. EXTREMITIES - No edema present. +5/5 strength noted in UE/LE bilaterally. NEUROLOGIC -Sensory intact to light touch throughout. PSYCH - A&Ox3 and cooperates fully with examiner. Pt is very pleasant and interacts well with examiner Course Administered Medications Acetaminophen (Acetaminophen 325 Mg Tab) 650 mg PO Q4H PRN PRN Reason: Pain or Fever Stop: 05/02/25 16:06 Last Admin: 04/03/25 14:55 Dose: 650 mg Documented By: Admin: 04/03/25 05:50 Dose: 650 mg Documented By: RAMY Amlodipine Besylate (Amlodipine Besylate 5 Mg Tab) 2.5 mg PO DAILY [facility] Stop: 05/03/25 08:59 Last Admin: 04/03/25 08:30 Dose: 2.5 mg Documented By: MAYURI Atorvastatin Calcium (Atorvastatin 20 Mg Tab) 20 mg PO DAILY [facility] Stop: 05/03/25 08:59 Last Admin: 04/03/25 08:30 Dose: 20 mg Documented By: MYAURI Cephalexin HCl (Cephalexin 500 Mg Cap) 500 mg PO QID [facility]; Protocol Stop: 04/03/25 23:59 Last Admin: 04/03/25 21:58 Dose: 500 mg Documented By: Admin: 04/03/25 17:22 Dose: 500 mg Documented By: Admin: 04/03/25 12:31 Dose: 500 mg Documented By: Admin: 04/03/25 08:29 Dose: 500 mg Documented By: Admin: 04/02/25 21:15 Dose: 500 mg Documented By: Admin: 04/02/25 17:19 Dose: 500 mg Documented By: LACEY Clonazepam (Clonazepam 1 Mg Tab) 1 mg PO BID [facility] Stop: 05/02/25 20:59 Last Admin: 04/03/25 21:53 Dose: 1 mg Documented By: Admin: 04/03/25 08:44 Dose: 1 mg Documented By: Admin: 04/02/25 21:16 Dose: 1 mg Documented By: RAMY Cyclobenzaprine HCl (Cyclobenzaprine Hcl 10 Mg Tab) 10 mg PO BID [facility] Stop: 05/02/25 20:59 Last Admin: 04/03/25 21:55 Dose: 10 mg Documented By: Admin: 04/03/25 08:30 Dose: 10 mg Documented By: Admin: 04/02/25 21:16 Dose: 10 mg Documented By: RAMY Dapagliflozin (Dapagliflozin (Farxiga) 10 Mg Tab) 10 mg PO QAM [facility] Stop: 05/03/25 08:59 Last Admin: 04/03/25 09:54 Dose: 10 mg Documented By: MAYURI Desvenlafaxine Succinate (Desvenlafaxine Succinate Er Tablet) 1 tab PO QAM [facility] Stop: 05/03/25 08:59 Last Admin: 04/03/25 09:54 Dose: 1 tab Documented By: MAYURI Famotidine (Famotidine 40 Mg Tablet) 40 mg PO HS [facility] Stop: 05/02/25 20:59 Last Admin: 04/03/25 21:57 Dose: 40 mg Documented By: Admin: 04/02/25 21:16 Dose: 40 mg Documented By: RAMY Ferrous Sulfate (Ferrous Sulfate 325 Mg Tab) 325 mg PO DAILY [facility] Stop: 05/03/25 08:59 Last Admin: 04/03/25 08:30 Dose: 325 mg Documented By: MAYURI Heparin Sodium (Porcine) (Heparin Sod 5,000 Unit/0.5 Ml Vial) 5,000 units SQ Q8 [facility] Stop: 05/02/25 16:06 Last Admin: 04/03/25 21:49 Dose: Not Given Documented By: Admin: 04/03/25 14:50 Dose: 5,000 units Documented By: Admin: 04/03/25 05:50 Dose: 5,000 units Documented By: Admin: 04/02/25 21:17 Dose: 5,000 units Documented By: Admin: 04/02/25 17:19 Dose: 5,000 units Documented By: LACEY Insulin Aspart (Insulin Aspart Per Unit Charge) 0 units SC ACHS [facility] Stop: 05/02/25 16:29 Last Admin: 04/03/25 21:56 Dose: Not Given Documented By: Admin: 04/03/25 17:21 Dose: 1 units Documented By: MAYURI Co-signed By: SHEFALI Admin: 04/03/25 12:31 Dose: 1 units Documented By: MAYURI Co-signed By: LANNY Admin: 04/03/25 08:36 Dose: 1 units Documented By: MAYURI Co-signed By: SHEFALI Admin: 04/02/25 21:17 Dose: Not Given Documented By: Admin: 04/02/25 18:22 Dose: 3 units Documented By: LACEY Co-signed By: ANGEL Insulin Glargine (Lantus Per Unit Charge) 6 units SQ QPM [facility] Stop: 05/02/25 20:59 Last Admin: 04/03/25 21:54 Dose: 6 units Documented By: RAMY Co-signed By: GURU Admin: 04/02/25 21:17 Dose: 6 units Documented By: RAMY Co-signed By: JULIO Levothyroxine Sodium (Levothyroxine Sodium 25 Mcg Tablet) 25 mcg PO DAILYBB [facility] Stop: 05/03/25 06:29 Last Admin: 04/03/25 05:50 Dose: 25 mcg Documented By: RAMY Levothyroxine Sodium (Levothyroxine Sodium 200 Mcg Tablet) 200 mcg PO DAILYBB [facility] Stop: 05/03/25 06:29 Last Admin: 04/03/25 05:50 Dose: 200 mcg Documented By: RAMY Metoprolol Succinate (Metoprolol Succ 25mg Ext Rel Tab) 25 mg PO DAILY [facility] Stop: 05/03/25 08:59 Last Admin: 04/03/25 08:31 Dose: 25 mg Documented By: MAYURI Nystatin (Nystatin Powder 15gm Btl) 1 appln EXT TID [facility] Stop: 05/02/25 16:06 Last Admin: 04/03/25 21:48 Dose: Not Given Documented By: Admin: 04/03/25 14:52 Dose: 1 appln Documented By: Admin: 04/03/25 08:31 Dose: 1 appln Documented By: Admin: 04/02/25 21:31 Dose: Not Given Documented By: Admin: 04/02/25 21:14 Dose: 1 appln Documented By: RAMY Pantoprazole Sodium (Pantoprazole 40 Mg Tab) 40 mg PO BID [facility] Stop: 05/02/25 20:59 Last Admin: 04/03/25 21:56 Dose: 40 mg Documented By: Admin: 04/03/25 08:30 Dose: 40 mg Documented By: Admin: 04/02/25 21:19 Dose: 40 mg Documented By: RAMY Potassium Chloride (Potassium Chloride Crtab 20 Meq Tabcr) 40 meq PO BID [facility] Stop: 05/02/25 20:59 Last Admin: 04/03/25 21:54 Dose: 40 meq Documented By: Admin: 04/03/25 08:44 Dose: 40 meq Documented By: Admin: 04/02/25 21:19 Dose: 40 meq Documented By: RAMY Prazosin HCl (Prazosin Hcl 1 Mg Cap) 3 mg PO HS [facility] Stop: 05/02/25 20:59 Last Admin: 04/03/25 21:55 Dose: 3 mg Documented By: Admin: 04/02/25 21:19 Dose: 3 mg Documented By: RAMY Pregabalin (Pregabalin 150 Mg Cap) 150 mg PO BID [facility] Stop: 05/02/25 20:59 Last Admin: 04/03/25 21:55 Dose: 150 mg Documented By: Admin: 04/03/25 08:44 Dose: 150 mg Documented By: Admin: 04/02/25 21:26 Dose: 150 mg Documented By: RAMY Topiramate (Topiramate 25 Mg Tab) 75 mg PO DAILY [facility] Stop: 05/03/25 08:59 Last Admin: 04/03/25 08:29 Dose: 75 mg Documented By: MAYURI Vitamin D (Cholecalciferol 25 Mcg (1000 Units) Tab) 50 mcg PO DAILY [facility] Stop: 05/03/25 08:59 Last Admin: 04/03/25 08:30 Dose: 50 mcg Documented By: MAYURI Discontinued Medications Bumetanide 1 mg/ Syringe 4 mls @ 4 mls/min IV ONE ONE Stop: 04/02/25 13:31 Last Admin: 04/02/25 14:06 Dose: 4 mls/min Documented By: ANT Bumetanide 2 mg/ Syringe 8 mls @ 4 mls/min IV ONE ONE Stop: 04/03/25 12:10 Last Admin: 04/03/25 13:21 Dose: 4 mls/min Documented By: MAYURI Ioversol (Optiray 320 125ml) 119 ml IV ONCE ONE Stop: 04/03/25 16:16 Last Admin: 04/03/25 16:16 Dose: 119 ml Documented By: JHOAN Bertrand (Patient's Height &/Or Weight Needed) 1 each N/A Q2H ST[facility] Stop: 04/02/25 13:23 Last Admin: 04/02/25 13:33 Dose: 1 each Documented By: JJC Miscellaneous (Farxiga ~ Order Awaiting Action) 1 each N/A QS [facility] Stop: 05/02/25 16:29 Last Admin: 04/02/25 22:03 Dose: Not Given Documented By: RAMY Miscellaneous (Desvenlafaxine ~ Order Awaiting Action) 1 each N/A QS [facility] Stop: 05/02/25 16:29 Last Admin: 04/02/25 22:02 Dose: Not Given Documented By: RAMY Medical Decision Making Differential Diagnosis Congestive heart failure, pleural effusion, pneumothorax, ME, pneumonia, bronchitis, among others. Medical Records Attestation: I reviewed the patient's medical records. Home Medications was personally reviewed by me Laboratory Data Attestation: I reviewed the patient's lab results. 04/03/25 06:48 04/03/25 06:48 Lab Results 04/02/25 04/02/25 Range/Units 10:55 12:45 WBC 7.68 (4.8-10.8) K/ul RBC 4.38 (4.20-5.40) M/uL Hgb 12.4 (12.0-16.0) g/dl Hct 39.5 (37.0-47.0) % MCV 90.2 (80.0-100.0) fL MCH 28.3 (25.0-34.0) pg MCHC 31.4 L (32.0-36.0) g/dL RDW Std Deviation 49.4 H (36.4-46.3) fL RDW Coeff of Carol 14.9 H (11.5-14.5) % Plt Count 204 (130-400) K/uL MPV 11.7 (9.4-12.4) fL Immature Gran % (Auto) 0.3 % Neut % (Auto) 53.3 % Lymph % (Auto) 32.6 % [place] % (Auto) 9.1 % Eos % (Auto) 4.0 % Baso % (Auto) 0.7 % Neut # (Auto) 4.10 (1.40-6.50) K/uL Lymph # (Auto) 2.50 (1.20-3.40) K/uL [place] # (Auto) 0.70 H (0.11-0.59) K/uL Eos # (Auto) 0.31 (0.00-0.50) K/uL Baso # (Auto) 0.05 (0.00-0.20) K/uL Immature Gran # (Auto) 0.02 (0.01-0.20) K/uL Sodium 140 (136-145) mmol/L Potassium 4.4 D (3.5-5.1) mmol/L Chloride 101 (98-107) mmol/L Carbon Dioxide 35 H (21-32) mmol/L Anion Gap 4 (3-11) BUN 17 (6-23) mg/dl Creatinine 0.66 (0.6-1.2) mg/dl Est Cr Clr Drug Dosing Not Reportable eGFR 99.12 BUN/Creatinine Ratio 25.8 H (10-20) Glucose 96 (70-99(Fasting)) mg/dl Calcium 9.2 (8.6-10.3) mg/dl Total Bilirubin 0.6 (0.2-1.0) mg/dl AST 27 (13-39) U/L ALT 18 (7-52) U/L Alkaline Phosphatase 130 H (34-104) U/L Troponin I High Sens 5.5 (0-14) pg/ml B-Natriuretic Peptide 13 (0-100) pg/ml Total Protein 7.5 (6.0-8.3) gm/dl Albumin 4.1 (3.4-5.0) gm/dl Globulin 3.4 (2.5-4.0) gm/dl Albumin/Globulin Ratio 1.2 (0.9-2) Urine Color Yellow Urine Appearance Cloudy A (Clear) Urine pH 8.0 H (4.5-7.5) Ur Specific [place] 1.013 (1.000-1.030) Urine Protein Negative (Negative) Urine Glucose (UA) 2+ H (Negative) Urine Ketones Negative (Negative) Urine Blood Trace H (Negative) Urine Nitrite Negative (Negative) Urine Bilirubin Negative (Negative) Urine Urobilinogen Negative (Negative) Ur Leukocyte Esterase Trace H (Negative) Urine WBC (Auto) 0-5 (0-5) /hpf Urine RBC (Auto) 3-5 H (0-2) /hpf U Hyaline Cast (Auto) 0-2 (0-2) /lpf U Epithel Cells (Auto) 6-10 H (0-2) /hpf Urine Bacteria (Auto) None Seen (None Seen) [place]c Crystals Present H (None Prsent) Amorphous Sediment Present A (None Prsent) Urine Yeast Present A (None Prsent) Urine Comment Imaging Data Radiologist's Impression: Chest X-Ray 04/02/25 10:08 XR chest 1V portable HISTORY: 60 years-old Female Dyspnea COMPARISON: September 26, 2024 TECHNIQUE: AP view of the chest FINDINGS: Cardiac silhouette is enlarged. Pulmonary vascular congestion. Obesity and positioning limits this study. No pneumothorax, or large pleural effusion. Probable mild bibasilar atelectasis. Bones appear grossly intact. Atherosclerosis of the aorta. IMPRESSION: Cardiomegaly with suggestion of pulmonary vascular congestion and bibasilar atelectasis. ACT 112: Negative or not required by law. The above report was generated using voice recognition software. It may contain grammatical, syntax or spelling errors. Electronically signed by: Eduin Briseno M.D. 04/02/2025 10:34 AM MDM Narrative Patient is a 60 year old female that presents to the emergency department with complaints of shortness of breath. Patient reports that her symptoms have persisted for approximately a week. Patient notes increased swelling to her bilateral lower extremities. Patient notes that she always has swelling in her legs but notes that it is worse today. Patient wears 2L oxygen continuously at baseline. but notes that she has had to increase it to 3-4 liters recently. Patient was seen at [facility] recently, as well as her cardiologists office and diagnosed with heart failure. Patient was advised by her systems software specialist that if her SOB got worse, she should come to the hospital for likely admission and close monitoring. Patient was evaluated by myself and findings were noted in the physical exam above. Patient was ordered IV placement, lab work, chest xray, and a urinalysis. Patient's labwork resulted relatively unremarkable. Patient had a normal white blood cell count of 7.68 and no indication of anemia with a hemoglobin of 12.4 and hematocrit of 39.5. Patient had no significant electrolyte imbalance noted. Patient also had a troponin and BNP ordered. Patient's troponin level was normal at 5.5, while patient's BNP was also normal at 13. Patient's urinalysis resulted without any indication of infection. Patient also had an xray of the chest completed which was completed and interpreted by radiology to show cardiomegaly with vascular congestion. While the patient didn't have an elevated BNP to indicate CHF, her xray did show vascular congestion and sgugest CHF. I reviewed all of these findings with the patient who verbalized understanding. I discussed with the patient that because her symptoms are not improving with the increased in [place] that [facility] and her systems software specialist suggested, her increased work of breathing and oxygen demands that it would be advisable for her to stay and have close evaluation and management here in the hospital through an admission. The patient verbalized understanding and was agreeable to the plan for admission. I spoke to Dr. Tompkins from the [facility] hospitalist group and gave him a full report on the patient's chief complaint, current status and the results of her imaging and labwork. He agreed that it would be advisable that the patient be admitted to the hospital for further monitoring and accepted the patient under his service. Please refer to the [facility]'s documentation for further evaluation and management of this patient. Impression Congestive heart failure Discharge Plan Visit Data Chief Complaint: Shortness of Breath/Dyspnea Stated Complaint: SOB, FLUID RETENTION ED Provider: Kathy Alvarado ED Midlevel Provider: Natalia Mayfield Discharge Problem: Congestive heart failure Patient Disposition: Admitted As Inpatient Condition: Fair Discharge Instructions Interventions: ED Discharge Assessment Last Done: 04/02/25 16:07 ED DC CONDITION Conditon at Discharge Condition at Discharge: Fair Discharge Problem: Congestive heart failure Qualifiers: Heart failure type: unspecified Heart failure chronicity: acute Qualified Code(s): I50.9 - Heart failure, unspecified
[2025-04-02] MEDS ORDERED: DEXTROSE 50% 50 ML SYRINGE IV PRN (16:07)
[2025-04-02] MEDS ORDERED: ONDANSETRON INJ 2 MG/ML 2 ML VIAL IV PRN (16:07)
[2025-04-02] MEDS ORDERED: GLUCOSE 40% GEL 15 GM TUBE PO PRN (16:07)
[2025-04-02] MEDS ORDERED: GLUCOSE 10 TAB/TUBE PO PRN (16:07)
[2025-04-02] MEDS ORDERED: ALBUT/IPRATROP 3MG/0.5MG NEB 3 ML VIAL INH PRN (16:07)
[2025-04-02] MEDS ORDERED: ALBUTEROL HFA 8 GM INHALER INH PRN (16:07)
[2025-04-02] MEDS ORDERED: CARBOHYDRATES FOR HYPOGLYCEMIA PO PRN (16:07)
[2025-04-02] MEDS ORDERED: GLUCAGON FOR INJ 1 MG VIAL SQ PRN (16:07)
[2025-04-02] MEDS: HEPARIN SOD 5,000 UNIT/0.5 ML VIAL SQ SCH (17:19)
--- NOTE | 2025-04-02 18:10 | Electrocardiogram Report ---
Test Reason : Blood Pressure : */* mmHG Vent. Rate : 80 BPM Atrial Rate : 80 BPM P-R Int : 276 ms QRS Dur : 80 ms QT Int : 392 ms P-R-T Axes : 70 15 55 degrees QTcB Int : 452 ms Sinus rhythm with 1st degree A-V block Low voltage QRS Poor R wave progression, consider anterior FL vs. lead placement vs. LVH Abnormal ECG When compared with ECG of 26-Sep-2024 20:26, [place] interval has increased Confirmed by Angel Tejada ([id number]) on 04/02/2025 6:10:45 PM Referred By: REFERRED SELF Confirmed By: Angel Tejada
[2025-04-02] MEDS: INSULIN ASPART PER UNIT CHARGE SC SCH (18:22)
[2025-04-02] MEDS: NYSTATIN POWDER 15GM BTL EXT SCH (21:14)
[2025-04-02] MEDS: clonazePAM 1 MG TAB PO SCH (21:16)
[2025-04-02] MEDS: FAMOTIDINE 40 MG TABLET PO SCH (21:16)
[2025-04-02] MEDS: CYCLOBENZAPRINE HCL 10 MG TAB PO SCH (21:16)
[2025-04-02] MEDS: LANTUS PER UNIT CHARGE SQ SCH (21:17)
[2025-04-02] MEDS: PRAZOSIN HCL 1 MG CAP PO SCH (21:19)
[2025-04-02] MEDS: POTASSIUM CHLORIDE CRTAB 20 MEQ TABCR PO SCH (21:19)
[2025-04-02] MEDS: PREGABALIN 150 MG CAP PO SCH (21:26)
[2025-04-02] MEDS: [UNRECOGNIZED DRUG - OTHER] SCH (22:02)
[2025-04-03] MEDS: LEVOTHYROXINE SODIUM 200 MCG TABLET PO SCH (05:50)
[2025-04-03] MEDS: LEVOTHYROXINE SODIUM 25 MCG TABLET PO SCH (05:50)
[2025-04-03] MEDS: ACETAMINOPHEN 325 MG TAB PO PRN (05:50)
[2025-04-03 07:30] LABS: Hematocrit (blood only) 36.0 % (37.0-47.0); Hemoglobin 11.5 g/dl (12.0-16.0); Immature Granulocytes # (auto) 0.02 K/uL (0.01-0.20); Immature Granulocytes % (auto) 0.2 %; Mean Corpuscular Hemoglobin 29.0 pg (25.0-34.0); Mean Corpuscular Volume 90.9 fL (80.0-100.0); Platelet Count 217 K/uL (130-400); RDW Standard Deviation 50.5 fL (36.4-46.3); Red Blood Count 3.96 M/uL (4.20-5.40); White Blood Count 8.72 K/ul (4.8-10.8)
--- NOTE | 2025-04-03 07:48 | Hospitalist Progress Note ---
Date of Service April 03, 2025 Assessment & Plan (1) Acute on chronic heart failure with preserved ejection fraction (HFpEF): (2) Severe obstructive sleep apnea: (3) Type 2 diabetes, controlled, with neuropathy: (4) Hypertension: Plan The patient presents the emergency department with continued shortness of breath and lower extremity edema despite recent increases in bumetanide as outpatient, and addition on 03/28/2025 at heart failure clinic of metolazone 5 mg every other day, and potassium chloride ER 40 mg twice daily. She was told that if her symptoms do not significantly improve, that she was to return to the emergency department, and she has presented in today for further evaluation. She has not taken her bumetanide or metolazone yet today. Patient will be admitted after giving Bumex 1 mg IV in ED, with increasing doses 1 mg IV twice daily. She has had an echocardiogram on 09/09/2024 with ejection fraction greater than 70. Acute on chronic heart failure with preserved ejection fraction- bumex one dose afternoon 04/03 2mg iv bid start 04/04 Most recent echocardiogram on 09/09/2014 showed ejection fraction greater than 70% Will order a limited echocardiogram to assess for EF changes Follow serial CBC with differential, chemistry profile and magnesium level Continue amlodipine 2.5 mg daily Continue Farxiga Diabetes mellitus- Decrease glargine from 12 to 6 units subcu every evening Placed on Accu-Cheks and NovoLog SSI Severe obstructive sleep apnea- Continue, and albuterol nebulizers as needed GERD- Continue pantoprazole twice daily and famotidine 40 mg at bedtime Admission and Anticipated Discharge Date Admission Date: April 02, 2025 Subjective pt still very short of breath, no chest pain c/o legs feeling heavy Physical Exam Physical Exam: dyspenic to conversation lungs diminshed cardiac distant le 2= Edema Results & Data Results & Data Vital Signs (Past 12 Hours) Vital Signs Temp Pulse Pulse Resp BP Pulse Ox O2 Del Method 04/03/25 03:42 94 H 10 L 94 04/03/25 02:44 97.7 F 92 H 20 112/80 96 CPAP 04/02/25 22:36 97.9 F 78 18 118/76 98 Nasal Cannula 04/02/25 22:14 79 22 100 O2 Flow Rate 04/03/25 03:42 2 04/03/25 02:44 04/02/25 22:36 04/02/25 22:14 2 Laboratory Results reviewed chemistry reviewed cbc discussed case with heart failure clinic provider PG Care Time/CCT Total # of Minutes Spent Total Time Spent with Patient: Total time spent is greater than 50% in coordination of care (as documented) at patient's floor/unit and/or counseling patient: Coding Level of Care Code 72377 SUB INP/OBS CARE 3/50MIN Diagnoses Acute on chronic heart failure with preserved ejection fraction (HFpEF) I50.33 Severe obstructive sleep apnea G47.33 Type 2 diabetes, controlled, with neuropathy E11.40 Hypertension I10 Hypertension type: essential hypertension (4) Hypertension Hypertension type: essential hypertension Qualified Code(s): I10 - Essential (primary) hypertension
[2025-04-03 08:01] LABS: Hemoglobin A1C 6.3 % (4.5-5.6)
[2025-04-03 08:12] LABS: Alanine Aminotransferase 15.0 U/L (7-52); Albumin Globulin Ratio 1.1 (0.9-2); Alkaline Phosphatase 119.0 U/L (34-104); Anion Gap 5.0 (3-11); Bilirubin,Total 0.7 mg/dl (0.2-1.0); Blood Urea Nitrogen 20.0 mg/dl (6-23); Calcium 8.7 mg/dl (8.6-10.3); Carbon Dioxide 34.0 mmol/L (21-32); Chloride 101.0 mmol/L (98-107); Creatinine Clr Calc Pharmacy 105.8 ml/min; Globulin 3.3 gm/dl (2.5-4.0); Glucose 117.0 mg/dl (70-99(Fasting)); Magnesium 2.1 mg/dl (1.7-2.4); Potassium 4.0 mmol/L (3.5-5.1); Sodium 140.0 mmol/L (136-145); Total Protein 7.0 gm/dl (6.0-8.3)
[2025-04-03] MEDS: TOPIRAMATE 25 MG TAB PO SCH (08:29)
[2025-04-03] MEDS: CHOLECALCIFEROL 25 MCG (1000 UNITS) TAB PO SCH (08:30)
[2025-04-03] MEDS: ATORVASTATIN 20 MG TAB PO SCH (08:30)
[2025-04-03] MEDS: FERROUS SULFATE 325 MG TAB PO SCH (08:30)
[2025-04-03] MEDS: METOPROLOL SUCC 25MG EXT REL TAB PO SCH (08:31)
[2025-04-03] MEDS: DESVENLAFAXINE SUCCINATE ER TABLET PO SCH (09:54)
[2025-04-03] MEDS: BUMETANIDE 2 MG in SYRINGE 0 ML IV ONE (13:21)
[2025-04-03] MEDS: OPTIRAY 320 125ml IV ONE (16:16)
--- NOTE | 2025-04-03 16:51 | CT Scan Report ---
CT pulmonary angiogram with IV contrast History: PE COMPARISON: None TECHNIQUE: CT angiography of the chest was performed without IV contrast followed by IV contrast, including 3D post processing CTA image reconstruction. Dose reduction techniques were achieved by using automatic exposure control and/or adjustment of mA and/or kV according to patient size and/or use of iterative reconstruction technique. FINDINGS: Diagnostic quality: Adequate There is no evidence for pulmonary embolism. The heart is not enlarged. There is no pericardial effusion. There are no abnormally enlarged hilar or mediastinal lymph nodes. Scattered moderate fluid throughout the trachea. There is significant narrowing of the AP diameter of the trachea, and mildly of the mainstem bronchi, on this dynamic, and free breathing study. Scattered streaky atelectasis throughout the lungs, greatest in the right lower lobe. The lungs demonstrate mosaic attenuation suggesting small airway or small vessel disease. There is no pleural effusion. Limited visualized upper abdomen. No destructive osseous changes are seen. Severe right shoulder degenerative changes. IMPRESSION: No evidence for pulmonary embolism. Moderate fluid seen throughout the trachea. Scattered, possibly postobstructive bandlike areas of atelectasis throughout the lungs, greatest in the right lower lobe. Significant narrowing of the AP diameter of the trachea noted, suggesting excessive dynamic airway collapse, and the possibility of tracheobronchomalacia. Consider pulmonology consultation if clinically indicated. Electronically signed by Angel Quiles 04-03-2025 4:51 PM
--- NOTE | 2025-04-03 17:40 | Electrocardiogram Report ---
Test Reason : Blood Pressure : */* mmHG Vent. Rate : 83 BPM Atrial Rate : 83 BPM P-R Int : 180 ms QRS Dur : 80 ms QT Int : 392 ms P-R-T Axes : 72 9 58 degrees QTcB Int : 460 ms Normal sinus rhythm Low voltage QRS Borderline ECG When compared with ECG of 02-Apr-2025 10:30, [place] interval has decreased Confirmed by Angel Tejada ([id number]) on 04/03/2025 5:39:35 PM Referred By: REFERRED SELF Confirmed By: Angel Tejada
[2025-04-04 07:48] LABS: Hematocrit (blood only) 35.0 % (37.0-47.0); Hemoglobin 11.2 g/dl (12.0-16.0); Immature Granulocytes # (auto) 0.02 K/uL (0.01-0.20); Immature Granulocytes % (auto) 0.2 %; Mean Corpuscular Hemoglobin 28.9 pg (25.0-34.0); Mean Corpuscular Volume 90.4 fL (80.0-100.0); Platelet Count 199 K/uL (130-400); RDW Standard Deviation 49.1 fL (36.4-46.3); Red Blood Count 3.87 M/uL (4.20-5.40); White Blood Count 8.49 K/ul (4.8-10.8)
[2025-04-04 08:04] LABS: Alanine Aminotransferase 14.0 U/L (7-52); Albumin Globulin Ratio 1.1 (0.9-2); Alkaline Phosphatase 117.0 U/L (34-104); Anion Gap 5.0 (3-11); Bilirubin,Total 0.7 mg/dl (0.2-1.0); Blood Urea Nitrogen 18.0 mg/dl (6-23); Calcium 8.9 mg/dl (8.6-10.3); Carbon Dioxide 32.0 mmol/L (21-32); Chloride 100.0 mmol/L (98-107); Creatinine Clr Calc Pharmacy 110.9 ml/min; Globulin 3.4 gm/dl (2.5-4.0); Glucose 119.0 mg/dl (70-99(Fasting)); Magnesium 2.0 mg/dl (1.7-2.4); Potassium 4.0 mmol/L (3.5-5.1); Sodium 137.0 mmol/L (136-145); Total Protein 7.1 gm/dl (6.0-8.3)
[2025-04-04] MEDS: BUMETANIDE 2 MG in SYRINGE 0 ML IV SCH (08:58)
--- NOTE | 2025-04-04 14:16 | XCELERA ---
[id number]
--- NOTE | 2025-04-04 14:21 | Hospitalist Progress Note ---
Date of Service April 04, 2025 Assessment & Plan (1) Acute on chronic heart failure with preserved ejection fraction (HFpEF): (2) Severe obstructive sleep apnea: (3) Type 2 diabetes, controlled, with neuropathy: (4) Hypertension: Plan The patient presents the emergency department with continued shortness of breath and lower extremity edema despite recent increases in bumetanide as outpatient, and addition on 03/28/2025 at heart failure clinic of metolazone 5 mg every other day, and potassium chloride ER 40 mg twice daily. She was told that if her symptoms do not significantly improve, that she was to return to the emergency department, and she has presented in today for further evaluation. She has not taken her bumetanide or metolazone yet today. Patient will be admitted after giving Bumex 1 mg IV in ED, with increasing doses 1 mg IV twice daily. She has had an echocardiogram on 09/09/2024 with ejection fraction greater than 70. Acute on chronic heart failure with preserved ejection fraction- bumex one dose 04/03 2mg iv bid start 04/04 Most recent echocardiogram on 09/09/2014 showed ejection fraction greater than 70% Will order a limited echocardiogram to assess for EF changes Suspect there is a component of restrictive lung disease with her dyspnea and given her BMI of 57 Of note has tracheomalacia and does use AVAPS at night at home has CPAP at Continue amlodipine 2.5 mg daily Continue Farxiga Diabetes mellitus- Decrease glargine from 12 to 6 units subcu every evening Placed on Accu-Cheks and NovoLog SSI Accu-Cheks reviewed was acceptable Severe obstructive sleep apnea- Continue, and albuterol nebulizers as needed GERD- Continue pantoprazole twice daily and famotidine 40 mg at bedtime Admission and Anticipated Discharge Date Admission Date: April 02, 2025 Subjective Patient shortness of breath is improved were -2 L now. Seems to be that the twice daily intravenous Bumex is working for diuresis question about her trache omalacia she relates that she had a tracheostomy at 1 point in time. Were not near her dry weight continue to diurese Physical Exam Physical Exam: Awake alert appropriate. Patient still with 2+ lower extremity swelling. She is conversationally dyspneic. She has decreased air movement but no overt signi ficant rales Results & Data Results & Data Vital Signs (Past 12 Hours) Vital Signs Temp Pulse Pulse Resp BP BP Pulse Ox 04/04/25 11:38 98.2 F 64 18 130/81 98 04/04/25 08:25 97.7 F 94 H 18 133/84 95 04/04/25 07:48 04/04/25 06:56 87 04/04/25 02:58 97.9 F 81 18 114/69 94 04/04/25 02:53 80 22 95 O2 Del Method O2 Flow Rate 04/04/25 11:38 Nasal Cannula 2 04/04/25 08:25 Nasal Cannula 2 04/04/25 07:48 Nasal Cannula 2 04/04/25 06:56 04/04/25 02:58 CPAP 04/04/25 02:53 2 Laboratory Results Reviewed CBC reviewed chemistry PG Care Time/CCT Total # of Minutes Spent Total Time Spent with Patient: Total time spent is greater than 50% in coordination of care (as documented) at patient's floor/unit and/or counseling patient: Coding Level of Care Code 71670 SUB INP/OBS CARE 3/50MIN Diagnoses Acute on chronic heart failure with preserved ejection fraction (HFpEF) I50.33 Severe obstructive sleep apnea G47.33 Type 2 diabetes, controlled, with neuropathy E11.40 Hypertension I10 Hypertension type: essential hypertension (4) Hypertension Hypertension type: essential hypertension Qualified Code(s): I10 - Essential (primary) hypertension
--- NOTE | 2025-04-04 18:38 | Electrocardiogram Report ---
Test Reason : Blood Pressure : */* mmHG Vent. Rate : 84 BPM Atrial Rate : 84 BPM P-R Int : 194 ms QRS Dur : 78 ms QT Int : 372 ms P-R-T Axes : 70 13 54 degrees QTcB Int : 439 ms Normal sinus rhythm Low voltage QRS Borderline ECG When compared with ECG of 03-Apr-2025 04:40, No significant change was found Confirmed by Angel Tejada ([id number]) on 04/04/2025 6:38:18 PM Referred By: REFERRED SELF Confirmed By: Angel Tejada
[2025-04-05 06:54] LABS: Hematocrit (blood only) 39.5 % (37.0-47.0); Hemoglobin 12.3 g/dl (12.0-16.0); Immature Granulocytes # (auto) 0.04 K/uL (0.01-0.20); Immature Granulocytes % (auto) 0.4 %; Mean Corpuscular Hemoglobin 28.3 pg (25.0-34.0); Mean Corpuscular Volume 91.0 fL (80.0-100.0); Platelet Count 224 K/uL (130-400); RDW Standard Deviation 50.6 fL (36.4-46.3); Red Blood Count 4.34 M/uL (4.20-5.40); White Blood Count 10.22 K/ul (4.8-10.8)
[2025-04-05 07:08] LABS: Alanine Aminotransferase 16.0 U/L (7-52); Albumin Globulin Ratio 1.1 (0.9-2); Alkaline Phosphatase 130.0 U/L (34-104); Anion Gap 6.0 (3-11); Bilirubin,Total 0.6 mg/dl (0.2-1.0); Blood Urea Nitrogen 19.0 mg/dl (6-23); Calcium 9.3 mg/dl (8.6-10.3); Carbon Dioxide 36.0 mmol/L (21-32); Chloride 97.0 mmol/L (98-107); Creatinine Clr Calc Pharmacy 106.9 ml/min; Globulin 3.8 gm/dl (2.5-4.0); Glucose 133.0 mg/dl (70-99(Fasting)); Magnesium 2.0 mg/dl (1.7-2.4); Potassium 4.0 mmol/L (3.5-5.1); Sodium 139.0 mmol/L (136-145); Total Protein 8.0 gm/dl (6.0-8.3)
[2025-04-05] MEDS: guaiFENesin 600 MG TABCR PO SCH (14:49)
[2025-04-05] MEDS: acetaZOLAMIDE 250 MG in SYRINGE 0 ML IV ONE (17:13)
--- NOTE | 2025-04-05 23:29 | Hospitalist Progress Note ---
Date of Service April 05, 2025 Assessment & Plan (1) Acute on chronic heart failure with preserved ejection fraction (HFpEF): (2) Severe obstructive sleep apnea: (3) Type 2 diabetes, controlled, with neuropathy: (4) Hypertension: Plan The patient presents the emergency department with continued shortness of breath and lower extremity edema despite recent increases in bumetanide as outpatient, and addition on 03/28/2025 at heart failure clinic of metolazone 5 mg every other day, and potassium chloride ER 40 mg twice daily. She was told that if her symptoms do not significantly improve, that she was to return to the emergency department, and she has presented in today for further evaluation. She has not taken her bumetanide or metolazone yet today. Patient will be admitted after giving Bumex 1 mg IV in ED, with increasing doses 1 mg IV twice daily. She has had an echocardiogram on 09/09/2024 with ejection fraction greater than 70. Acute on chronic heart failure with preserved ejection fraction- bumex one dose 04/03 2mg iv bid start 04/04 transitioned to one dose of bumex in am and one dose of acetazlamide due to mild metabolic alkalosis. Most recent echocardiogram on 09/09/2014 showed ejection fraction greater than 70% Will order a limited echocardiogram to assess for EF changes Suspect there is a component of restrictive lung disease with her dyspnea and given her BMI of 57 Of note has tracheomalacia and does use AVAPS at night at home has CPAP at Continue amlodipine 2.5 mg daily Continue Farxiga Diabetes mellitus- Decrease glargine from 12 to 6 units subcu every evening Placed on Accu-Cheks and NovoLog SSI Accu-Cheks reviewed was acceptable Severe obstructive sleep apnea- Continue, and albuterol nebulizers as needed GERD- Continue pantoprazole twice daily and famotidine 40 mg at bedtime Admission and Anticipated Discharge Date Admission Date: April 02, 2025 Subjective Patient reports feeling more tired today. Physical Exam Physical Exam: Awake alert appropriate. Patient still with 2+ lower extremity swelling. SHe is not dypsneic. She has decreased air movement but no overt significant rales Results & Data Results & Data Vital Signs (Past 12 Hours) Vital Signs Temp Pulse Pulse Resp BP BP Pulse Ox 04/05/25 22:48 36.5 C 78 16 122/80 96 04/05/25 21:14 04/05/25 19:09 36.5 C 80 16 128/80 95 04/05/25 17:26 04/05/25 15:54 82 04/05/25 14:52 36.6 C 79 14 129/75 96 O2 Del Method O2 Flow Rate 04/05/25 22:48 Nasal Cannula 2 04/05/25 21:14 BiPAP 2 04/05/25 19:09 Nasal Cannula 2 04/05/25 17:26 Nasal Cannula 2 04/05/25 15:54 04/05/25 14:52 Nasal Cannula 2 PG Care Time/CCT Total # of Minutes Spent Total Time Spent with Patient: Total time spent is greater than 50% in coordination of care (as documented) at patient's floor/unit and/or counseling patient: Coding Level of Care Code 16553 SUB INP/OBS CARE 3/50MIN Diagnoses Acute on chronic heart failure with preserved ejection fraction (HFpEF) I50.33 Severe obstructive sleep apnea G47.33 Type 2 diabetes, controlled, with neuropathy E11.40 Hypertension I10 Hypertension type: essential hypertension (4) Hypertension Hypertension type: essential hypertension Qualified Code(s): I10 - Essential (primary) hypertension
[2025-04-06 07:06] LABS: Hematocrit (blood only) 38.9 % (37.0-47.0); Hemoglobin 12.4 g/dl (12.0-16.0); Mean Corpuscular Hemoglobin 28.9 pg (25.0-34.0); Mean Corpuscular Volume 90.7 fL (80.0-100.0); Platelet Count 203 K/uL (130-400); RDW Standard Deviation 49.4 fL (36.4-46.3); Red Blood Count 4.29 M/uL (4.20-5.40); White Blood Count 8.95 K/ul (4.8-10.8)
[2025-04-06 07:31] LABS: Anion Gap 7.0 (3-11); Blood Urea Nitrogen 18.0 mg/dl (6-23); Calcium 9.3 mg/dl (8.6-10.3); Carbon Dioxide 32.0 mmol/L (21-32); Chloride 99.0 mmol/L (98-107); Creatinine Clr Calc Pharmacy 110.3 ml/min; Glucose 118.0 mg/dl (70-99(Fasting)); Potassium 3.9 mmol/L (3.5-5.1); Sodium 138.0 mmol/L (136-145)
[2025-04-06] MEDS: DICLOFENAC SOD 1% GEL 100 GM TUBE EXT SCH (10:53)
[2025-04-06] MEDS: ACETAMINOPHEN 325 MG TAB PO SCH (12:07)
[2025-04-06] MEDS: BUMETANIDE 2 MG in SYRINGE 0 ML IV ONE (17:48)
[2025-04-06] MEDS: HYDROCORTISONE 1% CRM 30 GM TUBE EXT ONE (18:30)
--- NOTE | 2025-04-06 23:11 | Hospitalist Progress Note ---
Date of Service April 06, 2025 Assessment & Plan (1) Acute on chronic heart failure with preserved ejection fraction (HFpEF): (2) Severe obstructive sleep apnea: (3) Type 2 diabetes, controlled, with neuropathy: (4) Hypertension: Plan The patient presents the emergency department with continued shortness of breath and lower extremity edema despite recent increases in bumetanide as outpatient, and addition on 03/28/2025 at heart failure clinic of metolazone 5 mg every other day, and potassium chloride ER 40 mg twice daily. She was told that if her symptoms do not significantly improve, that she was to return to the emergency department, and she has presented in today for further evaluation. She has not taken her bumetanide or metolazone yet today. Patient will be admitted after giving Bumex 1 mg IV in ED, with increasing doses 1 mg IV twice daily. She has had an echocardiogram on 09/09/2024 with ejection fraction greater than 70. Acute on chronic heart failure with preserved ejection fraction- resumed bumex on 04/06 after dose of acetazolamide. Most recent echocardiogram on 09/09/2014 showed ejection fraction greater than 70% Will order a limited echocardiogram to assess for EF changes Suspect there is a component of restrictive lung disease with her dyspnea and given her BMI of 57 Of note has tracheomalacia and does use AVAPS at night at home has CPAP at Continue amlodipine 2.5 mg daily Continue Farxiga Diabetes mellitus- Decrease glargine from 12 to 6 units subcu every evening Placed on Accu-Cheks and NovoLog SSI Accu-Cheks reviewed was acceptable Severe obstructive sleep apnea- Continue, and albuterol nebulizers as needed GERD- Continue pantoprazole twice daily and famotidine 40 mg at bedtime Admission and Anticipated Discharge Date Admission Date: April 02, 2025 Subjective Patient reports feelig comfortable in bed, but reports feeling SOB on ambulation. Physical Exam 2 Physical Exam: Awake alert appropriate. Patient still with 2+ lower extremity swelling. SHe is not dypsneic. She has decreased air movement but no overt significant rales Results & Data Results & Data Vital Signs (Past 12 Hours) Vital Signs Temp Pulse Pulse Resp BP Pulse Ox O2 Del Method 04/06/25 22:56 36.6 C 78 18 115/70 99 BiPAP 04/06/25 20:00 Nasal Cannula 04/06/25 19:43 36.6 C 87 20 138/83 96 Nasal Cannula 04/06/25 15:18 36.3 C L 82 18 113/68 97 Nasal Cannula 04/06/25 13:42 82 O2 Flow Rate 04/06/25 22:56 04/06/25 20:00 2 04/06/25 19:43 2 04/06/25 15:18 2 04/06/25 13:42 PG Care Time/CCT Total # of Minutes Spent Total Time Spent with Patient: Total time spent is greater than 50% in coordination of care (as documented) at patient's floor/unit and/or counseling patient: Coding Level of Care Code 50205 SUB INP/OBS CARE 3/50MIN Diagnoses Acute on chronic heart failure with preserved ejection fraction (HFpEF) I50.33 Severe obstructive sleep apnea G47.33 Type 2 diabetes, controlled, with neuropathy E11.40 Hypertension I10 Hypertension type: essential hypertension (4) Hypertension Hypertension type: essential hypertension Qualified Code(s): I10 - Essential (primary) hypertension
[2025-04-07 06:41] LABS: Hematocrit (blood only) 37.0 % (37.0-47.0); Hemoglobin 11.9 g/dl (12.0-16.0); Immature Granulocytes # (auto) 0.03 K/uL (0.01-0.20); Immature Granulocytes % (auto) 0.3 %; Mean Corpuscular Hemoglobin 29.0 pg (25.0-34.0); Mean Corpuscular Volume 90.2 fL (80.0-100.0); Platelet Count 200 K/uL (130-400); RDW Standard Deviation 49.1 fL (36.4-46.3); Red Blood Count 4.10 M/uL (4.20-5.40); White Blood Count 9.37 K/ul (4.8-10.8)
[2025-04-07 06:58] LABS: Anion Gap 6.0 (3-11); Blood Urea Nitrogen 17.0 mg/dl (6-23); Calcium 9.4 mg/dl (8.6-10.3); Carbon Dioxide 33.0 mmol/L (21-32); Chloride 99.0 mmol/L (98-107); Creatinine Clr Calc Pharmacy 105.2 ml/min; Glucose 94.0 mg/dl (70-99(Fasting)); Potassium 3.9 mmol/L (3.5-5.1); Sodium 138.0 mmol/L (136-145)
[2025-04-07] MEDS: HYDROCORTISONE 1% CRM 30 GM TUBE EXT PRN (18:40)
--- NOTE | 2025-04-07 22:45 | Hospitalist Progress Note ---
Date of Service April 07, 2025 Assessment & Plan (1) Acute on chronic heart failure with preserved ejection fraction (HFpEF): (2) Severe obstructive sleep apnea: (3) Type 2 diabetes, controlled, with neuropathy: (4) Hypertension: Plan The patient presents the emergency department with continued shortness of breath and lower extremity edema despite recent increases in bumetanide as outpatient, and addition on 03/28/2025 at heart failure clinic of metolazone 5 mg every other day, and potassium chloride ER 40 mg twice daily. She was told that if her symptoms do not significantly improve, that she was to return to the emergency department, and she has presented in today for further evaluation. She has not taken her bumetanide or metolazone yet today. Patient will be admitted after giving Bumex 1 mg IV in ED, with increasing doses 1 mg IV twice daily. She has had an echocardiogram on 09/09/2024 with ejection fraction greater than 70. Acute on chronic heart failure with preserved ejection fraction- contiue bumex, patient is still net negative. Renal function is stable. Most recent echocardiogram on 09/09/2014 showed ejection fraction greater than 70% Will order a limited echocardiogram to assess for EF changes Suspect there is a component of restrictive lung disease with her dyspnea and given her BMI of 57 Of note has tracheomalacia and does use AVAPS at night at home has CPAP at Continue amlodipine 2.5 mg daily Continue Farxiga Diabetes mellitus- Decrease glargine from 12 to 6 units subcu every evening Placed on Accu-Cheks and NovoLog SSI Accu-Cheks reviewed was acceptable Severe obstructive sleep apnea- Continue, and albuterol nebulizers as needed GERD- Continue pantoprazole twice daily and famotidine 40 mg at bedtime Admission and Anticipated Discharge Date Admission Date: April 02, 2025 Subjective 60 yo female reports no new symptoms. Physical Exam Physical Exam: Awake alert appropriate. Patient still with 2+ lower extremity swelling. SHe is not dypsneic. She has decreased air movement but no overt significant rales Results & Data Results & Data Vital Signs (Past 12 Hours) Vital Signs Temp Pulse Pulse Pulse Resp BP Pulse Ox 04/07/25 22:41 36.6 C 77 18 136/83 98 04/07/25 20:20 04/07/25 19:18 36.6 C 70 18 136/82 100 04/07/25 16:00 04/07/25 15:20 36.3 C L 84 18 124/85 98 04/07/25 15:03 92 H 04/07/25 11:19 36.4 C L 87 20 121/76 98 O2 Del Method O2 Del Method O2 Flow Rate O2 Flow Rate 04/07/25 22:41 BiPAP 04/07/25 20:20 Nasal Cannula, BiPAP 2 04/07/25 19:18 BiPAP 04/07/25 16:00 Nasal Cannula 2 04/07/25 15:20 Nasal Cannula 2 04/07/25 15:03 04/07/25 11:19 Nasal Cannula 2 PG Care Time/CCT Total # of Minutes Spent Total Time Spent with Patient: Total time spent is greater than 50% in coordination of care (as documented) at patient's floor/unit and/or counseling patient: Coding Level of Care Code 45432 SUB INP/OBS CARE 3/50MIN Diagnoses Acute on chronic heart failure with preserved ejection fraction (HFpEF) I50.33 Severe obstructive sleep apnea G47.33 Type 2 diabetes, controlled, with neuropathy E11.40 Hypertension I10 Hypertension type: essential hypertension Time Spent (min) 50 (4) Hypertension Hypertension type: essential hypertension Qualified Code(s): I10 - Essential (primary) hypertension
[2025-04-08 07:40] LABS: Hematocrit (blood only) 38.5 % (37.0-47.0); Hemoglobin 12.2 g/dl (12.0-16.0); Mean Corpuscular Hemoglobin 28.8 pg (25.0-34.0); Mean Corpuscular Volume 90.8 fL (80.0-100.0); Platelet Count 198 K/uL (130-400); RDW Standard Deviation 49.8 fL (36.4-46.3); Red Blood Count 4.24 M/uL (4.20-5.40); White Blood Count 9.15 K/ul (4.8-10.8)
[2025-04-08 07:59] LABS: Anion Gap 5.0 (3-11); Blood Urea Nitrogen 16.0 mg/dl (6-23); Calcium 9.3 mg/dl (8.6-10.3); Carbon Dioxide 31.0 mmol/L (21-32); Chloride 102.0 mmol/L (98-107); Creatinine Clr Calc Pharmacy 104.2 ml/min; Glucose 113.0 mg/dl (70-99(Fasting)); Potassium 4.4 mmol/L (3.5-5.1); Sodium 138.0 mmol/L (136-145)
--- NOTE | 2025-04-08 23:04 | Hospitalist Progress Note ---
Date of Service April 08, 2025 Assessment & Plan (1) Acute on chronic heart failure with preserved ejection fraction (HFpEF): (2) Severe obstructive sleep apnea: (3) Type 2 diabetes, controlled, with neuropathy: (4) Hypertension: Plan The patient presents the emergency department with continued shortness of breath and lower extremity edema despite recent increases in bumetanide as outpatient, and addition on 03/28/2025 at heart failure clinic of metolazone 5 mg every other day, and potassium chloride ER 40 mg twice daily. She was told that if her symptoms do not significantly improve, that she was to return to the emergency department, and she has presented in today for further evaluation. She has not taken her bumetanide or metolazone yet today. Patient will be admitted after giving Bumex 1 mg IV in ED, with increasing doses 1 mg IV twice daily. She has had an echocardiogram on 09/09/2024 with ejection fraction greater than 70. Acute on chronic heart failure with preserved ejection fraction- patient is still net negative about 10 liters. Holding diuretics currently. Renal function is stable. 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 Patient is now on room air. will consider resuming oral bumex in next 24-48 hours. Diabetes mellitus- Decrease glargine from 12 to 6 units subcu every evening Placed on Accu-Cheks and NovoLog SSI Accu-Cheks reviewed was acceptable Severe obstructive sleep apnea- Continue, and albuterol nebulizers as needed GERD- Continue pantoprazole twice daily and famotidine 40 mg at bedtime Admission and Anticipated Discharge Date Admission Date: April 02, 2025 Subjective 60 yo female reports no new symptoms. Physical Exam Physical Exam: Awake alert appropriate. Patient still with 2+ lower extremity swelling. SHe is not dypsneic. Chest sounds appears more clear today. Results & Data Results & Data Vital Signs (Past 12 Hours) Vital Signs Temp Pulse Pulse Resp BP Pulse Ox O2 Del Method 04/08/25 19:40 36.6 C 89 18 114/70 97 Nasal Cannula 04/08/25 19:30 Nasal Cannula, BiPAP 04/08/25 14:54 36.5 C 88 18 148/85 H 96 Nasal Cannula 04/08/25 14:40 93 H 04/08/25 11:10 36.4 C L 84 18 130/83 97 Nasal Cannula O2 Flow Rate 04/08/25 19:40 2 04/08/25 19:30 2 04/08/25 14:54 2 04/08/25 14:40 04/08/25 11:10 2 PG Care Time/CCT Total # of Minutes Spent Total Time Spent with Patient: Total time spent is greater than 50% in coordination of care (as documented) at patient's floor/unit and/or counseling patient: Coding Level of Care Code 47354 SUB INP/OBS CARE 3/50MIN Diagnoses Acute on chronic heart failure with preserved ejection fraction (HFpEF) I50.33 Severe obstructive sleep apnea G47.33 Type 2 diabetes, controlled, with neuropathy E11.40 Hypertension I10 Hypertension type: essential hypertension (4) Hypertension Hypertension type: essential hypertension Qualified Code(s): I10 - Essential (primary) hypertension
[2025-04-09 06:12] LABS: Hematocrit (blood only) 38.7 % (37.0-47.0); Hemoglobin 12.4 g/dl (12.0-16.0); Mean Corpuscular Hemoglobin 29.1 pg (25.0-34.0); Mean Corpuscular Volume 90.8 fL (80.0-100.0); Platelet Count 194 K/uL (130-400); RDW Standard Deviation 50.4 fL (36.4-46.3); Red Blood Count 4.26 M/uL (4.20-5.40); White Blood Count 10.38 K/ul (4.8-10.8)
[2025-04-09 06:30] LABS: Anion Gap 7.0 (3-11); Blood Urea Nitrogen 18.0 mg/dl (6-23); Calcium 9.1 mg/dl (8.6-10.3); Carbon Dioxide 30.0 mmol/L (21-32); Chloride 102.0 mmol/L (98-107); Creatinine Clr Calc Pharmacy 97.0 ml/min; Glucose 122.0 mg/dl (70-99(Fasting)); Potassium 3.9 mmol/L (3.5-5.1); Sodium 139.0 mmol/L (136-145)
[2025-04-09] MEDS: BUMETANIDE 2 MG in SYRINGE 0 ML IV ONE (09:09)
[2025-04-09] MEDS: [UNRECOGNIZED DRUG - REMARK] SCH (15:35)
[2025-04-09] MEDS: KETOCONAZOLE 2% SHAMPOO 120 ML BTL EXT SCH (16:45)
[2025-04-09] MEDS ORDERED: Nursing to Pharmacy Communication SCH (17:00)
--- NOTE | 2025-04-09 22:21 | Hospitalist Progress Note ---
Date of Service April 09, 2025 Assessment & Plan (1) Acute on chronic heart failure with preserved ejection fraction (HFpEF): (2) Severe obstructive sleep apnea: (3) Type 2 diabetes, controlled, with neuropathy: (4) Hypertension: Plan The patient presents the emergency department with continued shortness of breath and lower extremity edema despite recent increases in bumetanide as outpatient, and addition on 03/28/2025 at heart failure clinic of metolazone 5 mg every other day, and potassium chloride ER 40 mg twice daily. She was told that if her symptoms do not significantly improve, that she was to return to the emergency department, and she has presented in today for further evaluation. She has not taken her bumetanide or metolazone yet today. Patient will be admitted after giving Bumex 1 mg IV in ED, with increasing doses 1 mg IV twice daily. She has had an echocardiogram on 09/09/2024 with ejection fraction greater than 70. Acute on chronic heart failure with preserved ejection fraction- patient is still net negative about 10 liters. will resume bumex. Renal function is stable. 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 Patient is now on room air. Anticipate discharge within next hour Diabetes mellitus- Decrease glargine from 12 to 6 units subcu every evening Placed on Accu-Cheks and NovoLog SSI Accu-Cheks reviewed was acceptable Severe obstructive sleep apnea- Continue, and albuterol nebulizers as needed GERD- Continue pantoprazole twice daily and famotidine 40 mg at bedtime facial erythema: ordered low potency corticosteroids. will recommend followup with PCP to discuss followup. OIf still present may neeed followup with dermatology. Admission and Anticipated Discharge Date Admission Date: April 02, 2025 Subjective Patient reports no new symptoms. Physical Exam Physical Exam: Awake alert appropriate. Patient still with 2+ lower extremity swelling. SHe is not dypsneic. Chest sounds appears more clear today. Results & Data Results & Data Vital Signs (Past 12 Hours) Vital Signs Temp Pulse Pulse Resp BP BP Pulse Ox 04/09/25 19:24 36.7 C 98 H 18 119/73 98 04/09/25 15:49 36.2 C L 98 H 18 131/82 95 04/09/25 15:45 98 H 04/09/25 11:12 36.5 C 96 H 136/82 97 O2 Del Method O2 Flow Rate 04/09/25 19:24 Nasal Cannula 2 04/09/25 15:49 Room Air 04/09/25 15:45 04/09/25 11:12 Room Air PG Care Time/CCT Total # of Minutes Spent Total Time Spent with Patient: Total time spent is greater than 50% in coordination of care (as documented) at patient's floor/unit and/or counseling patient: Coding Level of Care Code 83197 SUB INP/OBS CARE 3/50MIN Diagnoses Acute on chronic heart failure with preserved ejection fraction (HFpEF) I50.33 Severe obstructive sleep apnea G47.33 Type 2 diabetes, controlled, with neuropathy E11.40 Hypertension I10 Hypertension type: essential hypertension (4) Hypertension Hypertension type: essential hypertension Qualified Code(s): I10 - Essential (primary) hypertension
[2025-04-10 06:31] LABS: Hematocrit (blood only) 36.8 % (37.0-47.0); Hemoglobin 11.6 g/dl (12.0-16.0); Mean Corpuscular Hemoglobin 28.7 pg (25.0-34.0); Mean Corpuscular Volume 91.1 fL (80.0-100.0); Platelet Count 177 K/uL (130-400); RDW Standard Deviation 51.8 fL (36.4-46.3); Red Blood Count 4.04 M/uL (4.20-5.40); White Blood Count 8.47 K/ul (4.8-10.8)
[2025-04-10 06:51] LABS: Anion Gap 8.0 (3-11); Blood Urea Nitrogen 18.0 mg/dl (6-23); Calcium 8.9 mg/dl (8.6-10.3); Carbon Dioxide 28.0 mmol/L (21-32); Chloride 102.0 mmol/L (98-107); Creatinine Clr Calc Pharmacy 101.9 ml/min; Glucose 204.0 mg/dl (70-99(Fasting)); Potassium 3.4 mmol/L (3.5-5.1); Sodium 138.0 mmol/L (136-145)
[2025-04-10 07:27] VITALS: RESP 23; TEMP 97.2; O2SAT 94
[2025-04-10] MEDS: BUMETANIDE 2 MG in SYRINGE 0 ML IV ONE (09:42)
[2025-04-10 09:51] VITALS: BP 119/73; PULSE 95
--- NOTE | 2025-04-10 09:57 | Discharge Summary ---
Discharge Summary Date of Service April 10, 2025 Principal Dx & Hospital Course #1 = Principal Diagnosis (1) Acute on chronic heart failure with preserved ejection fraction (HFpEF): (2) Severe obstructive sleep apnea: (3) Type 2 diabetes, controlled, with neuropathy: (4) Hypertension: Plan The patient presents the emergency department with continued shortness of breath and lower extremity edema despite recent increases in bumetanide as outpatient, and addition on 03/28/2025 at heart failure clinic of metolazone 5 mg every other day, and potassium chloride ER 40 mg twice daily. She was told that if her symptoms do not significantly improve, that she was to return to the emergency department, and she has presented in today for further evaluation. She has not taken her bumetanide or metolazone yet today. Patient will be admitted after giving Bumex 1 mg IV in ED, with increasing doses 1 mg IV twice daily. She has had an echocardiogram on 09/09/2024 with ejection fraction greater than 70. Acute on chronic heart failure with preserved ejection fraction- patient is still net negative about 10 liters. will resume bumex. Renal function is stable. 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 Patient is now on room air. Anticipate discharge within next hour Diabetes mellitus- Decrease glargine from 12 to 6 units subcu every evening Placed on Accu-Cheks and NovoLog SSI Accu-Cheks reviewed was acceptable Severe obstructive sleep apnea- Continue, and albuterol nebulizers as needed GERD- Continue pantoprazole twice daily and famotidine 40 mg at bedtime facial erythema: ordered low potency corticosteroids. will recommend followup with PCP to discuss followup. OIf still present may neeed followup with dermatology. Admission HPI Per Admitting Provider The patient presents the emergency department with continued shortness of breath and lower extremity edema despite recent increases in bumetanide as outpatient, and addition on 03/28/2025 at heart failure clinic of metolazone 5 mg every other day, and potassium chloride ER 40 mg twice daily. She was told that if her symptoms do not significantly improve, that she was to return to the emergency department, and she has presented in today for further evaluation. She has not taken her bumetanide or metolazone yet today. Discharge Plan Discharge Items Patient Disposition: Home - Home Health Services Reason For Visit: CHF EXACERBERATION Discharge Diagnosis: CHF exacerbation Condition on Discharge: Fair Activity: Resume your previous activity Non-emergency contact: Primary Care Provider Call non-emergency contact if: you have any medication questions Follow-up/Referrals: Barbara Deng DO [Primary Care Provider] - Diet: Carb Consistent or DM2 and Low Sodium (2gm) Addtl Attending Provider Instructions: Recommend followup with PCP in 1-2 weeks. Call your Primary Care doctor if any of the following symptoms or problems start or get worse: * Shortness of breath or difficulty breathing * Wake up at night short of breath * Chest pain * Cough * Swelling of your hands, feet, or legs * More fatigued or tired with your normal activity * Palpitations - sudden fast heart beats WEIGHT * Weigh yourself every morning after using the bathroom. * Use the same scale. * Wear the same amount of clothing. * Write your weight down on a chart. * Call your Primary Care doctor if you gain more than 2-3 pounds in 1-2 days. MEDICATIONS * Use this discharge instruction sheet for medication instructions. * Take your medications at the time your doctor ordered. * Do not skip a dose of your medicines. * If you miss a dose of medicine, take it as soon as possible, but DO NOT DOUBLE A DOSE. * Read your medicine information when you get home. * Know all of the side effects of your medicine. If in doubt, ask your pharmacist * Call your Primary Care doctor's office if you have any side effects. * Be sure all of your doctors know what medicine and herbs you take (including cold, flu, and herbal medicine). Take the following with you to your follow-up doctor appointments: * Weight Chart * Medication List * List of questions Do not drink excessive alcohol, beer or wine. Pending Studies at Discharge: No Stand-Alone Forms: [employer], Smoking Cessation Medications and DC Order Prescriptions: New guaifenesin [Mucinex] 600 mg Tablet Extended Release 12hr 1,200 mg PO Q12 Qty: 20 0RF Continued (DME) OneTouch Ultra Test Strip See Rx Instructions .Route Qty: 100 2RF Rx Instructions: As directed; QID (DME) pen needle, diabetic [Comfort EZ Pen [place]] 31 gauge x 1/4" needle See Rx Instructions .Route Qty: 100 2RF Rx Instructions: use 1 needle QD with Victoza (DME) insulin syringes (disposable) 1 mL syringe See Rx Instructions .ROUTE .MEDSUPPLY Qty: 500 1RF Rx Instructions: Test BS qid. Dx: E11.9 triamcinolone acetonide 0.025 % cream 1 applic topical DAILY PRN (Reason: rash) Qty: 80 0RF (DME) lancets 33 gauge misc See Rx Instructions .Route Qty: 500 1RF Rx Instructions: Test Glucose QID DX CODE: E11.9 atorvastatin 20 mg tablet 20 mg PO DAILY Qty: 90 3RF (DME) Hospital Bed Misc See Rx Instructions .Route Qty: 1 0RF Rx Instructions: REMOTE NOT WORKING REPAIR IF POSSIBLE / REPLACE IF UNREPAIRABLE (DME) Hospital Bed Repair See Rx Instructions .Route .MEDSUPPLY Qty: 1 0RF Rx Instructions: As directed (DME) blood-glucose meter [OneTouch Ultra2 Meter] Misc See Rx Instructions .Route Qty: 1 0RF Rx Instructions: As directed levothyroxine 25 mcg tablet 25 mcg PO DAILY Qty: 90 3RF Rx Instructions: take with 200mcg tab for a total of 225mcg daily levothyroxine 200 mcg tablet 200 mcg PO DAILY Qty: 90 3RF Rx Instructions: take with 25mcg tab to equal 225mcg daily insulin lispro 100 unit/mL solution See Rx Instructions SQ QID MDD 48 units Qty: 20 5RF Rx Instructions: prior to meal; BSg 0-110-0 units, 111-149 2 unit, 150-199 4 units, 200-249 6 units, 250-299 8 units, 300-349 10 units, 350-399 12 units, >400 call MD cholecalciferol (vitamin D3) 50 mcg (2,000 unit) tablet 50 mcg PO DAILY Qty: 28 5RF ketoconazole 2 % shampoo 1 applic topical Q14D Qty: 120 0RF insulin glargine [Lantus U-100 Insulin] 100 unit/mL solution 12 unit SQ QPM Qty: 10 3RF Rx Instructions: PT TAKES 8-10 UNITS DAILY albuterol sulfate 90 mcg/actuation HFA aerosol inhaler 2 puff inhalation Q6H PRN (Reason: shortness of breath or wheezing) Qty: 18 3RF Rx Instructions: Unable to verify med with patient/pharmacy at this date/time. (DME) OneTouch Ultra Test Strip See Rx Instructions .Route Qty: 500 1RF Rx Instructions: Test glucose QID DX CODE: E11.9 (DME) nebulizer machine and accessories See Rx Instructions .Route .MEDSUPPLY Qty: 1 0RF Rx Instructions: As directed famotidine 40 mg tablet 40 mg PO HS Qty: 30 5RF amlodipine 2.5 mg tablet 2.5 mg PO DAILY Qty: 30 2RF nystatin 100,000 unit/gram powder 1 applic topical TID Qty: 180 1RF Rx Instructions: Apply under breast, along abd pannus, groin PRN. Unable to verify med with patient/pharmacy at this date/time. (DME) Lift Recliner See Rx Instructions .Route .MEDSUPPLY Qty: 1 0RF Rx Instructions: As directed ([facility]) Hospital Bed Repairs See Rx Instructions .Route .MEDSUPPLY Qty: 1 0RF Rx Instructions: As directed ([facility]) 4 pronged cane See Rx Instructions .Route .MEDSUPPLY Qty: 1 0RF Rx Instructions: As directed ([facility]) Inogen Portable oxygen See Rx Instructions .Route .MEDSUPPLY Qty: 1 0RF Rx Instructions: As directed 2L NC diclofenac sodium 1 % gel 2 g topical QID Qty: 100 2RF Rx Instructions: apply to right shoulder. Unable to verify OTC meds at this date/time. prazosin 1 mg capsule 3 mg PO HS Rx Instructions: CONFIRMED ON [facility] DC SUMMARY 01/05 metoprolol succinate 50 mg tablet extended release 24 hr 25 mg PO DAILY Qty: 90 1RF tirzepatide 10 mg/0.5 mL pen injector 10 mg subcut Q7D Qty: 2 2RF Rx Instructions: potassium chloride 20 mEq tablet extended release 40 meq PO BID Qty: 120 3RF metolazone 5 mg tablet 5 mg PO Q OTHER DAY Qty: 15 2RF budesonide 0.5 mg/2 mL suspension for nebulization 0.25 mg inhalation BID PRN (Reason: Other) Qty: 180 0RF Rx Instructions: Unable to verify med with patient/pharmacy at this date/time. ipratropium-albuterol 0.5 mg-3 mg(2.5 mg base)/3 mL solution for nebulization 3 ml inhalation QID PRN (Reason: Shortness Of Breath Or Wheezing) Qty: 180 0RF clonazepam 1 mg tablet 1 mg PO BID Patient Comments: rx'd by Dr. Rudd pantoprazole 40 mg tablet,delayed release (DR/EC) 40 mg PO BID pregabalin 150 mg capsule 150 mg PO BID Qty: 60 3RF ferrous sulfate [FeroSul] 325 mg (65 mg iron) tablet 325 mg PO DAILY topiramate 50 mg tablet 75 mg PO DAILY cyclobenzaprine 10 mg tablet 10 mg PO BID bumetanide 2 mg tablet 2 mg PO BID desvenlafaxine succinate 100 mg tablet extended release 24 hr 100 mg PO DAILY Qty: 30 0RF dapagliflozin propanediol 10 mg tablet 10 mg PO DAILY Qty: 90 2RF Discontinued ofloxacin 0.3 % drops 1 drp OPB QID Rx Instructions: Start Date x7 day supply cephalexin 500 mg capsule 500 mg PO QID Rx Instructions: Start Date 03/27/25 x7 day supply Discharge Orders: Discharge Order- CHF (Routine); Ordered 04/10/25 Ordered By: Connor Dodd/Other Patient Handouts: Heart Failure Meds, What Is Heart Failure, Heart Failure Flare Up Signs, Heart Failure: Tracking Your Weight, Managing Type 2 Diabetes, Coping with Heart Failure, Heart Failure Make Changes Diet Admission Data Admit Date/Time: 04/02/25 13:22 Attending Provider: Connor Patel Admit Provider: Porfirio Tompkins Primary Care Provider: Barbara Deng Other Providers: Porfirio Tompkins; Charleen Zaidi Other Interventions: Discharge Summary Assessment (RN) Last Done: 04/10/25 09:49 Hospital Stay Data Consultations 04/02/25 12:46 ED Decision to Admit Stat 04/10/25 09:43 [facility] Referral Routine Diagnostic Imagining Performed 04/03/25 15:17 CT angio chest PE protocol Routine Pending Results Patient Have Any Pending Studies at Discharge: No Discharge Instructions Given to Patient (Per Discharging Provider) Recommend followup with PCP in 1-2 weeks. Call your Primary Care doctor if any of the following symptoms or problems start or get worse: * Shortness of breath or difficulty breathing * Wake up at night short of breath * Chest pain * Cough * Swelling of your hands, feet, or legs * More fatigued or tired with your normal activity * Palpitations - sudden fast heart beats WEIGHT * Weigh yourself every morning after using the bathroom. * Use the same scale. * Wear the same amount of clothing. * Write your weight down on a chart. * Call your Primary Care doctor if you gain more than 2-3 pounds in 1-2 days. MEDICATIONS * Use this discharge instruction sheet for medication instructions. * Take your medications at the time your doctor ordered. * Do not skip a dose of your medicines. * If you miss a dose of medicine, take it as soon as possible, but DO NOT DOUBLE A DOSE. * Read your medicine information when you get home. * Know all of the side effects of your medicine. If in doubt, ask your pharmacist * Call your Primary Care doctor's office if you have any side effects. * Be sure all of your doctors know what medicine and herbs you take (including cold, flu, and herbal medicine). Take the following with you to your follow-up doctor appointments: * Weight Chart * Medication List * List of questions Do not drink excessive alcohol, beer or wine. Coding Diagnoses Acute on chronic heart failure with preserved ejection fraction (HFpEF) I50.33 Severe obstructive sleep apnea G47.33 Type 2 diabetes, controlled, with neuropathy E11.40 Hypertension I10 Hypertension type: essential hypertension
[2025-04-10] MEDS: POTASSIUM CHLORIDE CRTAB 20 MEQ TABCR PO ONE (10:37)
[2025-04-10] MEDS ORDERED: POTASSIUM CHLORIDE CRTAB 20 MEQ TABCR PO ONE (12:00)
[2025-04-10] MEDS ORDERED: KETOCONAZOLE 2% SHAMPOO 120 ML BTL EXT SCH (18:00)
== END 2025-04-10 11:19 | disposition home health service (06) | DRG 291 ==
LOC: ED 09:38 → SUATTDRO 13:22 → EDINP 13:22 → 2S 16:07

== ENCOUNTER 2025-05-29 10:35 | Observation (INO) ==
--- NOTE | 2025-05-29 10:58 | Emergency Department Note ---
Impression & Plan Alteration in speech, UTI (urinary tract infection), Acute hypokalemia ED Provider Note Diagnosis: Speech change, UTI, altered mental status Disposition: Admission CHIEF COMPLAINT: Generalized weakness, speech change HPI: Patient is a 60-year-old female presenting after being sent in by family physician today after evaluation. Patient reportedly is not at her baseline. Patient has been experiencing 1 week of change in speech dizziness. Patient denies any focal muscle strength or sensory deficits. Patient on 2 L nasal cannula oxygen at baseline. Patient denies any new medications this week. Patient has any active chest pain or shortness of breath. PAST MEDICAL HISTORY: See Below PAST SURGICAL HISTORY: See Below SOCIAL HISTORY: See Below HOME MEDICATIONS: See Below ALLERGIES: See Below VITALS: See Below PHYSICAL EXAMINATION: GENERAL: Well appearing, well nourished, NAD, non-toxic. EYE EXAM: Normal conjunctiva. OROPHARYNX: Moist mucus membranes. Grossly normal dentition. NECK: Supple, LUNGS: Clear to auscultation. Normal chest wall mechanics. HEART: NSR ABDOMEN: Abdomen soft, non-tender, normo-active bowel sounds, no masses, no rebound or guarding BACK: No CVA TTP. SKIN: No rashes and no bruising. UPPER EXTREMITIES: Upper extremities are grossly normal LOWER EXTREMITIES: Grossly normal, no edema. NEURO EXAM: A&O x3,, 5 out of 5 muscle strength of the upper and lower extremities bilaterally, intact sensation of the upper and lower extremities bilaterally no facial droop PSYCH: Cooperative MEDICAL DECISION MAKING: History obtained from: Patient ER Course: Patient is a 60-year-old female presenting with generalized weakness speech change. Patient went to primary care physician today and they noticed a significant difference from her baseline and recommended she come to the ER. Patient states these changes have been present for approximately 1 week's time. Patient states her speech feels different. Patient has no other focal deficits. Patient moving arms and legs normally no decrease sensation of arms or legs. Patient denies fevers or chills. Patient denies chest pain or shortness of breath. Patient had CT of head and neck performed no intracranial hemorrhage no large vessel occlusions present. Patient found to have urinary tract infection and given Rocephin. Patient found to have hypokalemia and given p.o. potassium. Patient admitted to hospital service for further treatment and evaluation Labs (independently interpreted) are significant for: Hypokalemia Imaging results (independently interpreted): Chest x-ray atelectasis EKG interpretation (independently interpreted): Normal sinus rhythm no ST segment elevation or depression Medications given: [facility]: Hospitalist Triage Nursing notes reviewed and agree them. Vital Signs: reviewed and remarkable for: no significant abnormalities Past Med/Surg History Problem List (Updated 05/29/25 @ 16:12 by Antonio Okeefe DO) Acute hypokalemia (Acute) UTI (urinary tract infection) (Acute) Alteration in speech (Acute) Hypokalemia Medication adverse effect UTI (urinary tract infection) Metabolic encephalopathy Diabetic peripheral neuropathy Abnormal CT scan, chest Allergic asthma Obesity hypoventilation syndrome Tracheomalacia Shortness of breath Congestive heart failure (Acute) Severe obstructive sleep apnea Type 2 diabetes mellitus Type 2 diabetes, controlled, with neuropathy Mixed hyperlipidemia Hypertension Dietary counseling and surveillance (Chronic) Partial tear of right rotator cuff Seborrheic dermatitis B12 deficiency Diabetic neuropathy (HFpEF) heart failure with preserved ejection fraction NSTEMI (non-ST elevated myocardial infarction) Right cervical radiculopathy Adhesive capsulitis of right shoulder Left knee DJD Osteoarthritis of right shoulder Chronic right shoulder pain Morbid obesity with BMI of 60.0-69.9, adult (Chronic) H/O: iron deficiency anemia Chronic respiratory failure Mass of lung Urinary incontinence Knee osteoarthritis Essential tremor PTSD (post-traumatic stress disorder) Hypothyroidism (Chronic) Vitamin D deficiency (Chronic) Hearing difficulty Fatty liver (Chronic) Depression (Chronic) Arthritis Anxiety Allergic rhinitis Acne Acid reflux (Chronic) Medical History Hypervolemia Hypokalemia Metabolic syndrome Diabetes type 2, uncontrolled CHF exacerbation Acute on chronic heart failure with preserved ejection fraction (HFpEF) Acute on chronic respiratory failure with hypercapnia Cellulitis of left anterior lower leg Acute on chronic respiratory failure with hypoxia and hypercapnia Obesity hypoventilation syndrome Chronic obstructive pulmonary disease Candidal intertrigo Abnormal uterine bleeding Trochanteric bursitis of left hip Pneumonia Erythema of lower extremity Food sticks on swallowing Acute on chronic respiratory acidosis Sepsis Meckel's diverticulitis SBO (small bowel obstruction) Cellulitis Elevated troponin COVID-19 Personal history of COVID-19 Hepatic encephalopathy Lung cancer H/O renal calculi H/O: pneumonia Surgical History Status post tracheostomy (11/25/21) H/O lithotripsy H/O prior ablation treatment H/O tympanostomy History of tonsillectomy Previous section History of adenoidectomy Family History Father Alcohol abuse Cardiac disorder Diabetes Gallbladder disease Hypertension Depression Mother Anxiety Depression Diabetes Hypertension Stroke Sister Breast cancer Depression Heart disease, congenital Rectal cancer Grandmother (Maternal) Lung disease Grandfather (Maternal) Heart disease Colorectal cancer Prostate cancer Denies family history of Ovarian cancer Myocardial infarction Social History Smoking Status: Never smoker Tobacco Type: Cigarettes Age Started Using Tobacco: 16; Age Quit Using Tobacco: 27; packs per day: 1; Second Hand Exposure: No; Do You Dip or Chew Tobacco: No; Hx Alcohol Use: No Hx Substance Use: No Preferred Language: Yakut Communication Ability: Effective Visual Impairment: Limited Hearing Ability: Hard of Hearing Ict Help Desk Officer Required: No Beliefs That Will Affect Care: Buddhism marital status: Unknown Current Living Situation: Alone Current Living Situation Comment: lives with /7 caregiver current occupational status: disabled Feels Safe at Home: Yes Childhood Exposure to Second-Hand Smoke: Yes Diet Comment: Tries to maintain healthy diet. caffeine: Yes (Tea x 2 cups a day.) during the past year weight has: decreased > 10 lbs Dental Care, Regularly: No Physical Activity Frequency: Does not Exercise Physical Activity Frequency Comment: Limited by physical condition Seatbelt Use: always Sunscreen Use: Yes Assistive Devices: Cane, Oxygen - Continuous and Wheelchair Allergies Allergies Allergy/AdvReac Type Severity Reaction Status Date / Time bupropion Allergy Unknown Hives Verified 05/29/25 09:23 Sulfa (Sulfonamide Allergy Unknown Hives Verified 05/29/25 09:23 Antibiotics) Home Meds Home Medications Medication Instructions Recorded Confirmed prazosin 1 mg capsule 3 mg PO HS 01/12/22 05/29/25 clonazepam 1 mg tablet 1 mg PO BID 02/13/25 05/29/25 pantoprazole 40 mg tablet,delayed 40 mg PO BID 02/25/25 05/29/25 release bumetanide 2 mg tablet 2 mg PO BID 04/02/25 05/29/25 ferrous sulfate 325 mg (65 mg 325 mg PO DAILY 04/02/25 05/29/25 iron) tablet (FeroSul) topiramate 50 mg tablet 75 mg PO DAILY 04/02/25 05/29/25 dapagliflozin propanediol 10 mg 10 mg PO DAILY 04/19/25 05/29/25 tablet desvenlafaxine succinate 100 mg 100 mg PO DAILY 04/19/25 05/29/25 tablet,extended release 24 hr nystatin 100,000 unit/gram topical 1 applic topical QID PRN Flare 04/19/25 05/29/25 powder budesonide-formoterol HFA 160 2 puff inhalation BID 05/15/25 05/29/25 mcg-4.5 mcg/actuation aerosol inhaler (Symbicort) budesonide 0.5 mg/2 mL suspension 0.25 mg inhalation BID PRN 05/29/25 05/29/25 for nebulization Shortness Of Breath Or Wheezing dupilumab 300 mg/2 mL subcutaneous 300 mg subcut DIRECTED 05/29/25 05/29/25 pen injector ([email or web address]) insulin glargine 100 unit/mL (3 12 unit subcut DAILY 05/29/25 05/29/25 mL) subcutaneous pen (Lantus Solostar U-100 Insulin) insulin lispro 100 unit/mL 2 sliding scale dose subcut QID 05/29/25 05/29/25 subcutaneous solution Previous Rx's Medication Instructions Recorded insulin syringes (disposable) 1 mL #500 ea 01/25/24 triamcinolone acetonide 0.025 % 1 applic topical DAILY PRN rash 05/02/24 topical cream #80 grams atorvastatin 20 mg tablet 20 mg PO DAILY #90 tabs 09/06/24 ipratropium 0.5 mg-albuterol 3 mg 3 ml inhalation QID PRN Shortness 09/07/24 (2.5 mg base)/3 mL nebulization Of Breath Or Wheezing #180 mL pending [facility] (Hospital #1 ea 10/02/24 Bed) Hospital Bed Repair #1 ea 10/26/24 levothyroxine 200 mcg tablet 200 mcg PO DAILY #90 tabs 11/19/24 levothyroxine 25 mcg tablet 25 mcg PO DAILY #90 tabs 11/19/24 cholecalciferol (vitamin D3) 50 50 mcg PO DAILY #28 tabs 12/26/24 mcg (2,000 unit) tablet ketoconazole 2 % shampoo 1 applic topical Q14D #120 mL 12/26/24 albuterol sulfate 90 mcg/actuation 2 puff inhalation Q6H PRN 02/07/25 aerosol inhaler shortness of breath or wheezing #18 grams nebulizer machine and accessories #1 ea 02/08/25 famotidine 40 mg tablet 40 mg PO HS #30 tabs 02/21/25 4 pronged cane #1 ea 03/08/25 Hospital Bed Repairs #1 ea 03/08/25 Inogen Portable oxygen #1 ea 03/21/25 diclofenac sodium 1 % topical gel 2 g topical QID #100 grams 03/27/25 lancets 33 gauge #500 ea 04/11/25 pen needle, diabetic 31 gauge x #100 ea 04/11/25 1/4" (Comfort EZ Pen [place]) blood-glucose meter (Accu-Chek #1 ea 04/12/25 Guide Glucose Meter) hydrocortisone 1 % topical cream 1 applic topical QID PRN rash 04/12/25 #28.4 grams lancets (Accu-Chek Softclix #200 ea 04/12/25 Lancets) spironolactone 25 mg tablet 25 mg PO DAILY #30 tabs 04/16/25 quad cane #1 ea 04/19/25 potassium chloride 20 mEq 40 meq (2 x 20 mEq) PO BID #120 04/26/25 tablet,extended release tabs blood-glucose sensor (FreeStyle #2 ea 04/29/25 Dom 3 Plus Sensor device) blood-glucose,color receiver,cont #1 ea 05/03/25 (FreeStyle Dom 3 [place]) metolazone 5 mg tablet 5 mg PO Q OTHER DAY #15 tabs 05/03/25 tirzepatide 12.5 mg/0.5 mL 12.5 mg (0.5 mL) subcut Q7D #2 mL 05/04/25 subcutaneous pen injector blood sugar diagnostic (Accu-Chek #100 ea 05/13/25 Guide test strips) Lift Recliner #1 ea 05/14/25 inhalational spacing device #1 ea 05/15/25 (Aerochamber MV spacer) pregabalin 150 mg capsule 150 mg PO .COMPLEX #90 caps 05/15/25 cyclobenzaprine 10 mg tablet 10 mg PO BID muscle spasm #60 tabs 05/16/25 amlodipine 2.5 mg tablet 2.5 mg PO DAILY #30 tabs 05/17/25 metoprolol succinate 50 mg 25 mg (1/2 x 50 mg) PO DAILY #90 05/20/25 tablet,extended release 24 hr tabs Results & Data (ED) Vital Signs Vital Signs - 24 hr 05/29/25 10:26 05/29/25 10:44 05/29/25 11:36 Temperature 36.5 C Temperature Source Oral Pulse Rate 94 H 90 Pulse Rate [Apical] Respiratory Rate 18 Respiratory Effort / Characteristics Non-Labored Spontaneous Respiratory Depth Normal Respiratory Pattern Regular Blood Pressure 113/68 Blood Pressure [Left Arm] Blood Pressure [Left Radial Artery] Blood Pressure Mean 83 Blood Pressure Mean [Left Arm] Blood Pressure Mean [Left Radial Artery] Pulse Oximetry 100 100 Oxygen Delivery Method Nasal Cannula Nasal Cannula Oxygen Flow Rate 2 2 Sepsis Recent Fever Within 48 Hours No Sepsis New/Unexplained Change in Mental Status N/A Sepsis Action Taken by Nursing No Action Required 05/29/25 11:44 05/29/25 11:44 05/29/25 15:32 Temperature Temperature Source Pulse Rate Pulse Rate [Apical] 93 H 92 H Respiratory Rate 18 17 Respiratory Effort / Characteristics Spontaneous Respiratory Depth Normal Respiratory Pattern Regular Blood Pressure Blood Pressure [Left Arm] 132/78 Blood Pressure [Left Radial Artery] 168/89 H Blood Pressure Mean Blood Pressure Mean [Left Arm] 96 Blood Pressure Mean [Left Radial Artery] 115 Pulse Oximetry 100 100 98 Oxygen Delivery Method Nasal Cannula Nasal Cannula Nasal Cannula Oxygen Flow Rate 2 2 2 Sepsis Recent Fever Within 48 Hours Sepsis New/Unexplained Change in Mental Status Sepsis Action Taken by Nursing Laboratory Data 05/29/25 11:38 05/29/25 11:38 Lab Results 05/29/25 05/29/25 05/29/25 Range/Units 11:06 11:32 11:38 WBC 9.08 (4.8-10.8) K/ul RBC 4.77 (4.20-5.40) M/uL Hgb 13.5 (12.0-16.0) g/dl POC Hgb 13.6 (12.0-16.0) g/dl Hct 41.6 (37.0-47.0) % POC Hct 40 (37-47) % MCV 87.2 (80.0-100.0) fL MCH 28.3 (25.0-34.0) pg MCHC 32.5 (32.0-36.0) g/dL RDW Std Deviation 42.1 (36.4-46.3) fL RDW Coeff of Carol 13.3 (11.5-14.5) % Plt Count 219 (130-400) K/uL MPV 11.3 (9.4-12.4) fL Immature Gran % (Auto) 0.2 % Neut % (Auto) 62.2 % Lymph % (Auto) 24.8 % Boundary % (Auto) 8.6 % Eos % (Auto) 3.9 % Baso % (Auto) 0.3 % Neut # (Auto) 5.65 (1.40-6.50) K/uL Lymph # (Auto) 2.25 (1.20-3.40) K/uL Boundary # (Auto) 0.78 H (0.11-0.59) K/uL Eos # (Auto) 0.35 (0.00-0.50) K/uL Baso # (Auto) 0.03 (0.00-0.20) K/uL Immature Gran # (Auto) 0.02 (0.01-0.20) K/uL Specimen Type ASA Sample Site R Brachial POC pH 7.38 (7.35-7.45) POC pCO2 68 H (35-46) mmHg POC pO2 27 L (80-95) mmHg POC HCO3 40 H (19-24) cody/L POC Total CO2 42 H* (24-31) mmol/L POC Base Excess 15.0 H (-9-1.8) cody/L ABG pH (Temp Correct) 7.380 (7.35-7.45) ABG pCO2 (Temp Corrct 68 H (35-46) mmHg POC ABG pO2 at Pt Temp 27 POC ABG O2 Sat 46.0 L (90-95) % Power Test NA O2 Delivery Device Cannula POC Sodium 140 (135-144) mmol/L Sodium 139 (136-145) mmol/L POC Potassium 2.7 L (3.3-5.0) mmol/L Potassium 2.9 L (3.5-5.1) mmol/L Chloride 93 L (98-107) mmol/L Carbon Dioxide 39 H (21-32) mmol/L Anion Gap 7 (3-11) BUN 24 H (6-23) mg/dl Creatinine 0.73 (0.6-1.2) mg/dl Est Cr Clr Drug Dosing 96.4 ml/min eGFR 92.93 BUN/Creatinine Ratio 32.9 H (10-20) Glucose 76 (70-99(Fasting)) mg/dl POC Glucose (70-99) mg/dl Calcium 10.3 (8.6-10.3) mg/dl Magnesium 2.3 (1.7-2.4) mg/dl Total Bilirubin 0.7 (0.2-1.0) mg/dl AST 30 (13-39) U/L ALT 25 (7-52) U/L Alkaline Phosphatase 135 H (34-104) U/L Troponin I High Sens 6.4 (0-14) pg/ml B-Natriuretic Peptide 9 (0-100) pg/ml Total Protein 8.6 H (6.0-8.3) gm/dl Albumin 4.0 (3.4-5.0) gm/dl Globulin 4.6 H (2.5-4.0) gm/dl Albumin/Globulin Ratio 0.9 (0.9-2) TSH 0.135 L (0.300-4.500) uIu/ml Free T4 1.50 (0.61-1.60) ng/dl Urine Color Yellow Urine Appearance Clear (Clear) Urine pH 8.0 H (4.5-7.5) Ur Specific [place] 1.008 (1.000-1.030) Urine Protein Negative (Negative) Urine Glucose (UA) 3+ H (Negative) Urine Ketones Negative (Negative) Urine Blood Negative (Negative) Urine Nitrite Negative (Negative) Urine Bilirubin Negative (Negative) Urine Urobilinogen Negative (Negative) Ur Leukocyte Esterase 1+ H (Negative) Urine WBC (Auto) 21-50 H (0-5) /hpf Urine RBC (Auto) 0-2 (0-2) /hpf U Hyaline Cast (Auto) 0-2 (0-2) /lpf U Epithel Cells (Auto) 0-2 (0-2) /hpf Urine Bacteria (Auto) None Seen (None Seen) Urine Comment Urine Opiates Screen Neg (Neg) Ur Methadone, Qual Neg (Neg) Urine Fentanyl Screen Neg (Neg) Urine Barbiturates Neg (Neg) Ur Phencyclidine (PCP) Neg (Neg) U Amphetamin/Meth Scrn Neg (Neg) MDMA (Ecstasy) Screen Neg (Neg) U Benzodiazepines Scrn Neg (Neg) Ur Cocaine Metabolite Neg (Neg) U Marijuana (THC) Screen Neg (Neg) 05/29/25 05/29/25 Range/Units 12:12 12:49 WBC (4.8-10.8) K/ul RBC (4.20-5.40) M/uL Hgb (12.0-16.0) g/dl POC Hgb (12.0-16.0) g/dl Hct (37.0-47.0) % POC Hct (37-47) % MCV (80.0-100.0) fL MCH (25.0-34.0) pg MCHC (32.0-36.0) g/dL RDW Std Deviation (36.4-46.3) fL RDW Coeff of Carol (11.5-14.5) % Plt Count (130-400) K/uL MPV (9.4-12.4) fL Immature Gran % (Auto) % Neut % (Auto) % Lymph % (Auto) % Bound[place] % (Auto) % Eos % (Auto) % Baso % (Auto) % Neut # (Auto) (1.40-6.50) K/uL Lymph # (Auto) (1.20-3.40) K/uL [place] # (Auto) (0.11-0.59) K/uL Eos # (Auto) (0.00-0.50) K/uL Baso # (Auto) (0.00-0.20) K/uL Immature Gran # (Auto) (0.01-0.20) K/uL Specimen Type Sample Site POC pH (7.35-7.45) POC pCO2 (35-46) mmHg POC pO2 (80-95) mmHg POC HCO3 (19-24) cody/L POC Total CO2 (24-31) mmol/L POC Base Excess (-9-1.8) cody/L ABG pH (Temp Correct) (7.35-7.45) ABG pCO2 (Temp Corrct (35-46) mmHg POC ABG pO2 at Pt Temp POC ABG O2 Sat (90-95) % Power Test O2 Delivery Device POC Sodium (135-144) mmol/L Sodium (136-145) mmol/L POC Potassium (3.3-5.0) mmol/L Potassium (3.5-5.1) mmol/L Chloride (98-107) mmol/L Carbon Dioxide (21-32) mmol/L Anion Gap (3-11) BUN (6-23) mg/dl Creatinine (0.6-1.2) mg/dl Est Cr Clr Drug Dosing ml/min eGFR BUN/Creatinine Ratio (10-20) Glucose (70-99(Fasting)) mg/dl POC Glucose 58 L* 77 (70-99) mg/dl Calcium (8.6-10.3) mg/dl Magnesium (1.7-2.4) mg/dl Total Bilirubin (0.2-1.0) mg/dl AST (13-39) U/L ALT (7-52) U/L Alkaline Phosphatase (34-104) U/L Troponin I High Sens (0-14) pg/ml B-Natriuretic Peptide (0-100) pg/ml Total Protein (6.0-8.3) gm/dl Albumin (3.4-5.0) gm/dl Globulin (2.5-4.0) gm/dl Albumin/Globulin Ratio (0.9-2) TSH (0.300-4.500) uIu/ml Free T4 (0.61-1.60) ng/dl Urine Color Urine Appearance (Clear) Urine pH (4.5-7.5) Ur Specific [place] (1.000-1.030) Urine Protein (Negative) Urine Glucose (UA) (Negative) Urine Ketones (Negative) Urine Blood (Negative) Urine Nitrite (Negative) Urine Bilirubin (Negative) Urine Urobilinogen (Negative) Ur Leukocyte Esterase (Negative) Urine WBC (Auto) (0-5) /hpf Urine RBC (Auto) (0-2) /hpf U Hyaline Cast (Auto) (0-2) /lpf U Epithel Cells (Auto) (0-2) /hpf Urine Bacteria (Auto) (None Seen) Urine Comment Urine Opiates Screen (Neg) Ur Methadone, Qual (Neg) Urine Fentanyl Screen (Neg) Urine Barbiturates (Neg) Ur Phencyclidine (PCP) (Neg) U Amphetamin/Meth Scrn (Neg) MDMA (Ecstasy) Screen (Neg) U Benzodiazepines Scrn (Neg) Ur Cocaine Metabolite (Neg) U Marijuana (THC) Screen (Neg) Administered Medications Discontinued Medications Sodium Chloride (Nss) 500 mls @ 999 mls/hr IV .Q31M ONE Stop: 05/29/25 11:19 Last Infusion: 05/29/25 12:22 Dose: Infused Documented By: Admin: 05/29/25 11:51 Dose: 999 mls/hr Documented By: JACQUELYN Ceftriaxone Sodium (Rocephin) 1,000 mg in 50 mls @ 100 mls/hr IV NOW STA Stop: 05/29/25 14:16 Last Infusion: 05/29/25 15:35 Dose: 0 mls/hr Documented By: Admin: 05/29/25 15:35 Dose: 100 mls/hr Documented By: LACEY Ioversol (Optiray 320 125ml) 120 ml IV ONCE ONE Stop: 05/29/25 13:15 Last Admin: 05/29/25 13:15 Dose: 120 ml Documented By: BELIA Lidocaine (Lidocaine 5% 1 Patch) 1 patch TD NOW STA Stop: 05/29/25 14:32 Last Admin: 05/29/25 15:35 Dose: 1 patch Documented By: LACEY Potassium Chloride (Potassium Chloride Crtab 20 Meq Tabcr) 40 meq PO NOW STA Stop: 05/29/25 13:50 Last Admin: 05/29/25 15:35 Dose: 40 meq Documented By: JOSE GUADALUPE Imaging Data Radiologist's Impression: Chest X-Ray 05/29/25 10:48 SINGLE VIEW CHEST CLINICAL HISTORY: Weakness FINDINGS: An AP, portable, upright chest radiograph is compared to study dated 04/02/2025 and correlated with chest CT dated 04/03/2025. The heart is enlarged noting atherosclerotic calcification of the thoracic aorta. The pulmonary vasculature is not congested. There is chronic elevation of the right hemidiaphragm. Bibasilar opacities are similar to previous. No large pleural effusion or pneumothorax is seen. The skeletal structures are osteopenic. The bony thorax is grossly intact. IMPRESSION: 1. Cardiomegaly without radiographic evidence of congestive failure. 2. Bibasilar opacities are similar to previous and likely represent atelectasis. Correlate clinically. ACT 112: Negative or not required by law. Electronically signed by: Nikunj Alan M.D. 05/29/2025 11:[address] 05/29/25 10:49 CT head/brain wo con CLINICAL HISTORY: 60 years-old Female with confusion. Acutely altered mental status TECHNIQUE: Multiple axial CT images of the head were obtained without contrast. A dose lowering technique was utilized adhering to the principles of ALARA. COMPARISON: CTA head of same day FINDINGS: No acute intracranial hemorrhage, midline shift, intracranial mass, hydrocephalus, territorial ischemia or abnormal extra-axial collection. Involutional changes with mild white matter hypodensities which may represent a component of chronic microvascular ischemic disease. The calvarium is intact. The paranasal sinuses, mastoid air cells, and middle ear cavities are clear. IMPRESSION: No acute intracranial abnormality. ACT 112: Negative or not required by law. The above report was generated using voice recognition software. It may contain grammatical, syntax or spelling errors. Electronically signed by: Eduin Briseno M.D. 05/29/2025 1:31 PM Head CTA 05/29/25 10:55 CT ANGIOGRAM OF THE BRAIN CLINICAL HISTORY: Change in mental status. COMPARISON STUDY: Unenhanced CT of the brain performed concurrently on 05/29/2025 TECHNIQUE: Following the IV administration of 120 cc of Optiray 320, CT angiogram of the brain was performed from the skull base to the vertex. Images are reviewed in the axial, sagittal, and coronal planes. 3-D MIPS images are created and assessed. IV contrast was administered without complication. A dose lowering technique was utilized adhering to the principles of ALARA. FINDINGS: Brain parenchyma: There is minimal microangiopathic change. There is no evidence of hemorrhage or mass effect noting angiographic phase technique. There is no evidence of enhancing mass lesion on the angiogram phase images. No extra-axial fluid collection is seen. [place]-white matter differentiation is preserved. Ventricles, sulci, and cisterns: Normal in configuration. CT angiogram of the brain: There is mild atherosclerotic calcification of the cavernous carotid arteries. The internal carotid arteries at the skull base are patent, as are the anterior and middle cerebral arteries. The vertebrobasilar system and posterior cerebral arteries are patent. The vertebral arteries are codominant. There is no aneurysm, high-grade stenosis, or focal vessel cutoff identified throughout the intracranial circulation. Dural sinuses: Clear as visualized. Orbits: The bony orbits are intact. The orbital contents are normal as visualized. Sinuses and mastoids: There is mucosal thickening within the right posterior ethmoid sinus. The visualized paranasal sinuses are otherwise clear. The mastoid air cells are well pneumatized. Calvarium: Unremarkable. IMPRESSION: 1. There is no evidence of hemorrhage or mass effect noting angiographic phase technique. 2. Unremarkable CT angiogram of the brain. ACT 112: Negative or not required by law. Electronically signed by: Nikunj Alan M.D. 05/29/2025 1:23 PM Neck CTA 05/29/25 10:55 CT ANGIOGRAPHY OF THE NECK WITH CONTRAST CLINICAL HISTORY: change in speech, dizziness COMPARISON STUDY: No previous studies for comparison. Technique: CT angiography of the carotid and vertebral arteries was obtained using Optiray and 3D reconstruction on an independent workstation. NASCET criteria was utilized. Automated exposure control was utilized for the study. A dose lowering technique was utilized adhering to the principles of ALARA. CT DOSE: 1259.34 mGy.cm Findings: The visualized portions of the lung apices are unremarkable. Thyroid gland is unremarkable. There is no pathologic cervical lymphadenopathy. The internal carotids have a medial retropharyngeal course. There is no evidence of common or internal carotid artery stenosis or dissection. There is no evidence of vertebral artery dissection or occlusion or stenosis. Resolution is slightly limited due to the patient's large body habitus and resulting beam hardening artifact Incidental note is made of dense arthritic changes in the right shoulder IMPRESSION: No evidence of hemodynamically significant carotid or vertebral artery stenosis. No evidence of dissection. ACT 112: Negative or not required by law. Electronically signed by: Kai Hernandez M.D. 05/29/2025 1:28 PM Discharge Plan Visit Data Chief Complaint: Lethargic Stated Complaint: CONFUSION, STROKE SX ED Provider: Antonio Okeefe Discharge Problem: Alteration in speech, UTI (urinary tract infection), Acute hypokalemia Condition: Fair Forms Stand Alone Forms: [facility] Prescriptions Prescriptions: No Action (DME) insulin syringes (disposable) 1 mL syringe See Rx Instructions .ROUTE .MEDSUPPLY Qty: 500 1RF Rx Instructions: Test BS qid. Dx: E11.9 triamcinolone acetonide 0.025 % cream 1 applic topical DAILY PRN (Reason: rash) Qty: 80 0RF atorvastatin 20 mg tablet 20 mg PO DAILY Qty: 90 3RF (DME) Hospital Bed Misc See Rx Instructions .Route Qty: 1 0RF Rx Instructions: REMOTE NOT WORKING REPAIR IF POSSIBLE / REPLACE IF UNREPAIRABLE (DME) Hospital Bed Repair See Rx Instructions .Route .MEDSUPPLY Qty: 1 0RF Rx Instructions: As directed levothyroxine 25 mcg tablet 25 mcg PO DAILY Qty: 90 3RF Rx Instructions: take with 200mcg tab for a total of 225mcg daily levothyroxine 200 mcg tablet 200 mcg PO DAILY Qty: 90 3RF Rx Instructions: take with 25mcg tab to equal 225mcg daily cholecalciferol (vitamin D3) 50 mcg (2,000 unit) tablet 50 mcg PO DAILY Qty: 28 5RF ketoconazole 2 % shampoo 1 applic topical Q14D Qty: 120 0RF albuterol sulfate 90 mcg/actuation HFA aerosol inhaler 2 puff inhalation Q6H PRN (Reason: shortness of breath or wheezing) Qty: 18 3RF (DME) nebulizer machine and accessories See Rx Instructions .Route .MEDSUPPLY Qty: 1 0RF Rx Instructions: As directed famotidine 40 mg tablet 40 mg PO HS Qty: 30 5RF (DME) Hospital Bed Repairs See Rx Instructions .Route .MEDSUPPLY Qty: 1 0RF Rx Instructions: As directed (DME) 4 pronged cane See Rx Instructions .Route .MEDSUPPLY Qty: 1 0RF Rx Instructions: As directed (DME) Inogen Portable oxygen See Rx Instructions .Route .MEDSUPPLY Qty: 1 0RF Rx Instructions: As directed 2L NC diclofenac sodium 1 % gel 2 g topical QID Qty: 100 2RF Rx Instructions: apply to right shoulder. Unable to verify OTC meds at this date/time. (DME) pen needle, diabetic [Comfort EZ Pen [place]] 31 gauge x 1/4" needle See Rx Instructions .Route Qty: 100 2RF Rx Instructions: use 1 needle QD with Victoza (DME) lancets 33 gauge misc See Rx Instructions .Route Qty: 500 1RF Rx Instructions: Test Glucose QID DX CODE: E11.9 (DME) blood-glucose meter [Accu-Chek Guide Glucose Meter] Misc See Rx Instructions .Route Qty: 1 0RF Rx Instructions: Test BS 4 times daily (DME) lancets [Accu-Chek Softclix Lancets] Misc See Rx Instructions .Route Qty: 200 0RF Rx Instructions: Test 4 times daily hydrocortisone 1 % cream 1 applic topical QID PRN (Reason: rash) Qty: 28.4 5RF Rx Instructions: to rash on face, front and back of neck. potassium chloride 20 mEq tablet extended release 40 meq PO BID Qty: 120 3RF (DME) FreeStyle Dom 3 Plus Sensor Device See Rx Instructions .Route Qty: 2 12RF Rx Instructions: As directed. Testing BS QID (DME) FreeStyle Dom 3 [place] Misc See Rx Instructions .Route Qty: 1 0RF Rx Instructions: As directed metolazone 5 mg tablet 5 mg PO Q OTHER DAY Qty: 15 2RF (DME) Accu-Chek Guide test strips Strip See Rx Instructions .Route Qty: 100 0RF Rx Instructions: Test 6 times daily (DME) Lift Recliner See Rx Instructions .Route .MEDSUPPLY Qty: 1 0RF Rx Instructions: As directed cyclobenzaprine 10 mg tablet 10 mg PO BID Qty: 60 5RF amlodipine 2.5 mg tablet 2.5 mg PO DAILY Qty: 30 2RF metoprolol succinate 50 mg tablet extended release 24 hr 25 mg PO DAILY Qty: 90 1RF prazosin 1 mg capsule 3 mg PO HS Rx Instructions: CONFIRMED ON [facility] DC SUMMARY 01/05 spironolactone 25 mg tablet 25 mg PO DAILY Qty: 30 2RF ipratropium-albuterol 0.5 mg-3 mg(2.5 mg base)/3 mL solution for nebulization 3 ml inhalation QID PRN (Reason: Shortness Of Breath Or Wheezing) Qty: 180 0RF clonazepam 1 mg tablet 1 mg PO BID Patient Comments: rx'd by Dr. Rudd- Pt states may change, Pt lost sister [facility] 04/10/25. pregabalin 150 mg capsule 150 mg PO .COMPLEX Qty: 90 5RF Rx Instructions: 150 mg orally take one cap in the morning, then take two caps at bedtime; tirzepatide 12.5 mg/0.5 mL pen injector 12.5 mg subcut Q7D Qty: 2 2RF Rx Instructions: pantoprazole 40 mg tablet,delayed release (DR/EC) 40 mg PO BID (DME) quad cane See Rx Instructions .Route .MEDSUPPLY Qty: 1 0RF Rx Instructions: As directed nystatin 100,000 unit/gram powder 1 applic topical QID PRN (Reason: Flare) Rx Instructions: Apply under breast, along abd pannus, groin PRN. desvenlafaxine succinate 100 mg tablet extended release 24 hr 100 mg PO DAILY dapagliflozin propanediol 10 mg tablet 10 mg PO DAILY (DME) Aerochamber MV Spacer See Rx Instructions .ROUTE .MEDSUPPLY Qty: 1 0RF Rx Instructions: As directed budesonide-formoterol [Symbicort] 160-4.5 mcg/actuation HFA aerosol inhaler 2 puff inhalation BID ferrous sulfate [FeroSul] 325 mg (65 mg iron) tablet 325 mg PO DAILY topiramate 50 mg tablet 75 mg PO DAILY bumetanide 2 mg tablet 2 mg PO BID budesonide 0.5 mg/2 mL suspension for nebulization 0.25 mg inhalation BID PRN (Reason: Shortness Of Breath Or Wheezing) insulin lispro 100 unit/mL solution 2 sliding scale dose subcut QID MDD 48 units Rx Instructions: prior to meal; BSg 0-110-0 units, 111-149 2 unit, 150-199 4 units, 200-249 6 units, 250-299 8 units, 300-349 10 units, 350-399 12 units, >400 call insulin glargine [Lantus Solostar U-100 Insulin] 100 unit/mL (3 mL) insulin pen 12 unit subcut DAILY Dupixent Pen 300 mg/2 mL pen injector 300 mg subcut DIRECTED Rx Instructions: every other week Referrals Referrals: Barbara Deng DO [Primary Care Provider] -
--- NOTE | 2025-05-29 11:18 | XRay Report ---
SINGLE VIEW CHEST CLINICAL HISTORY: Weakness FINDINGS: An AP, portable, upright chest radiograph is compared to study dated 04/02/2025 and correlate d with chest CT dated 04/03/2025. The heart is enlarged noting atherosclerotic calcification of the tho racic aorta. The pulmonary vasculature is not congested. There is chronic elevation of the right marni diaphragm. Bibasilar opacities are similar to previous. No large pleural effusion or pneumothorax is seen. The skeletal structures are osteopenic. The bony thorax is grossly intact. IMPRESSION: 1. Cardiomegaly without radiographic evidence of congestive failure. 2. Bibasilar opacities are similar to previous and likely represent atelectasis. Correlate clinically . ACT 112: Negative or not required by law. Electronically signed by: Nikunj Alan M.D. 05/29/2025 11:17 AM
[2025-05-29 11:28] LABS: Appearance Urine Clear (Clear); Bacteria Urine Automated None Seen (None Seen); Cast Urine Automated 0-2 /lpf (0-2); Epithelial Cell Urine Auto 0-2 /hpf (0-2); Glucose Urine UA 3+ (Negative); RBC Urine Automated 0-2 /hpf (0-2); WBC Urine Automated 21-50 /hpf (0-5)
[2025-05-29 11:50] LABS: iSTAT Art Bld Gas Base Excess 15.0 meg/L (-9-1.8); iSTAT Art Bld Gas pCO2 Correct 68 mmHg (35-46); iSTAT Art Bld Gas pH Corrected 7.380 (7.35-7.45); iSTAT Arterial Blood Gas pO2 C 27
[2025-05-29] MEDS: SODIUM CHLORIDE 0.9% 500 ML IV ONE (11:51)
[2025-05-29 11:53] LABS: Hematocrit (blood only) 41.6 % (37.0-47.0); Hemoglobin 13.5 g/dl (12.0-16.0); Immature Granulocytes # (auto) 0.02 K/uL (0.01-0.20); Immature Granulocytes % (auto) 0.2 %; Mean Corpuscular Hemoglobin 28.3 pg (25.0-34.0); Mean Corpuscular Volume 87.2 fL (80.0-100.0); Platelet Count 219 K/uL (130-400); RDW Standard Deviation 42.1 fL (36.4-46.3); Red Blood Count 4.77 M/uL (4.20-5.40); White Blood Count 9.08 K/ul (4.8-10.8)
[2025-05-29 12:13] LABS: Amphetamines+Metham, Urine Neg (Neg); MDMA (Ecstacy), Urine Neg (Neg); Marijuana, Urine Neg (Neg)
[2025-05-29 12:54] LABS: Alanine Aminotransferase 25.0 U/L (7-52); Albumin Globulin Ratio 0.9 (0.9-2); Alkaline Phosphatase 135.0 U/L (34-104); Anion Gap 7.0 (3-11); Bilirubin,Total 0.7 mg/dl (0.2-1.0); Blood Urea Nitrogen 24.0 mg/dl (6-23); Calcium 10.3 mg/dl (8.6-10.3); Carbon Dioxide 39.0 mmol/L (21-32); Chloride 93.0 mmol/L (98-107); Creatinine Clr Calc Pharmacy 96.4 ml/min; Globulin 4.6 gm/dl (2.5-4.0); Glucose 76.0 mg/dl (70-99(Fasting)); Magnesium 2.3 mg/dl (1.7-2.4); Potassium 2.9 mmol/L (3.5-5.1); Sodium 139.0 mmol/L (136-145); Total Protein 8.6 gm/dl (6.0-8.3)
[2025-05-29 13:08] LABS: Thyroid Stimulating Hormone 0.135 uIu/ml (0.300-4.500)
[2025-05-29] MEDS: OPTIRAY 320 125ml IV ONE (13:15)
--- NOTE | 2025-05-29 13:25 | CT Scan Report ---
CT ANGIOGRAM OF THE BRAIN CLINICAL HISTORY: Change in mental status. COMPARISON STUDY: Unenhanced CT of the brain performed concurrently on 05/29/2025 TECHNIQUE: Following the IV administration of 120 cc of Optiray 320, CT angiogram of the brain was pe rformed from the skull base to the vertex. Images are reviewed in the axial, sagittal, and coronal pl anes. 3-D MIPS images are created and assessed. IV contrast was administered without complication. A dose lowering technique was utilized adhering to the principles of ALARA. FINDINGS: Brain parenchyma: There is minimal microangiopathic change. There is no evidence of hemorrhage or mas s effect noting angiographic phase technique. There is no evidence of enhancing mass lesion on the a ngiogram phase images. No extra-axial fluid collection is seen. Landrum-white matter differentiation is preserved. Ventricles, sulci, and cisterns: Normal in configuration. CT angiogram of the brain: There is mild atherosclerotic calcification of the cavernous carotid arter ies. The internal carotid arteries at the skull base are patent, as are the anterior and middle cereb ral arteries. The vertebrobasilar system and posterior cerebral arteries are patent. The vertebral ar teries are codominant. There is no aneurysm, high-grade stenosis, or focal vessel cutoff identified t hroughout the intracranial circulation. Dural sinuses: Clear as visualized. Orbits: The bony orbits are intact. The orbital contents are normal as visualized. Sinuses and mastoids: There is mucosal thickening within the right posterior ethmoid sinus. The visua lized paranasal sinuses are otherwise clear. The mastoid air cells are well pneumatized. Calvarium: Unremarkable. IMPRESSION: 1. There is no evidence of hemorrhage or mass effect noting angiographic phase technique. 2. Unremarkable CT angiogram of the brain. ACT 112: Negative or not required by law. Electronically signed by: Nikunj Alan M.D. 05/29/2025 1:23 PM
--- NOTE | 2025-05-29 13:30 | CT Scan Report ---
CT ANGIOGRAPHY OF THE NECK WITH CONTRAST CLINICAL HISTORY: change in speech, dizziness COMPARISON STUDY: No previous studies for comparison. Technique: CT angiography of the carotid and vertebral arteries was obtained using Optiray and 3D rec onstruction on an independent workstation. NASCET criteria was utilized. Automated exposure control was utilized for the study. A dose lowering technique was utilized adhering to the principles of ALA RA. CT DOSE: 1259.34 mGy.cm Findings: The visualized portions of the lung apices are unremarkable. Thyroid gland is unremarkable. There is no pathologic cervical lymphadenopathy. The internal carotids have a medial retropharyngeal course. There is no evidence of common or interna l carotid artery stenosis or dissection. There is no evidence of vertebral artery dissection or occlusion or stenosis. Resolution is slightly limited due to the patient's large body habitus and resulting beam hardening a rtifact Incidental note is made of dense arthritic changes in the right shoulder IMPRESSION: No evidence of hemodynamically significant carotid or vertebral artery stenosis. No evidence of disse ction. ACT 112: Negative or not required by law. Electronically signed by: Kai Hernandez M.D. 05/29/2025 1:28 PM
--- NOTE | 2025-05-29 13:33 | CT Scan Report ---
CT head/brain wo con CLINICAL HISTORY: 60 years-old Female with confusion. Acutely altered mental status TECHNIQUE: Multiple axial CT images of the head were obtained without contrast. A dose lowering tech nique was utilized adhering to the principles of ALARA. COMPARISON: CTA head of same day FINDINGS: No acute intracranial hemorrhage, midline shift, intracranial mass, hydrocephalus, territorial ischem ia or abnormal extra-axial collection. Involutional changes with mild white matter hypodensities whic h may represent a component of chronic microvascular ischemic disease. The calvarium is intact. The paranasal sinuses, mastoid air cells, and middle ear cavities are clear . IMPRESSION: No acute intracranial abnormality. ACT 112: Negative or not required by law. The above report was generated using voice recognition software. It may contain grammatical, syntax o r spelling errors. Electronically signed by: Eduin Briseno M.D. 05/29/2025 1:31 PM
--- NOTE | 2025-05-29 14:47 | History & Physical Report ---
<Statement entered by Carmela Arellano MD - 05/29/25 16:32> I have reviewed vital signs, chart notes, labs and imaging. I have personally seen, evaluated and examined the patient. I have also discussed the management of the patient with the MORIS and I agree with the exam findings documented in the history and physical examination and the documented assessment and plan unless otherwise stated below. 60 y/o with BOBBI/OHS and DM type 2 with neuropathy who presented with lethargy and slurred speech On exam AOx4 and more alert than described this AM, speech is clumsy and a l ittle slowed/deliberate, tongue midline and no facial droop. Abdomen is somewhat tympanic but nontender with +BT. Otherwise exam unremarkable, neuro exam nonfocal. A/P: #Acute toxic metabolic encephalopathy - multifactorial. Stroke unlikely based on presentation and exam. -hypercarbia - chronic and related to BOBBI/OHS -medication effects - recent increase in dose of pregabalin looks to be a primary culprit. Hold sedating meds except her usual HS clonazepam. Reduce pregabalin to previous dose at discharge -possible UTI -hypoglycemia this week down to low 50s a few times #Possible UTI - some pyuria but unimpressive UA, does have symptoms of SP "warmness" which she associates with UTIs, chronic urinary incontience -ceftriaxone pending urine culture #BOBBI/OHS and chronic respiratory failure -continue nocturnal AVAPS #DM type 2 with hypoglycemia - she does have a CGM Date of Service May 29, 2025 Assessment & Plan (1) Metabolic encephalopathy: (2) UTI (urinary tract infection): (3) Medication adverse effect: (4) Hypokalemia: Plan Patient is a 60 y/o female with a PMHx of T2DM, COPD on 2L NC chronically, obesity hypoventilation syndrome and BOBBI on AVAPs, HFpEF, HTN. Patient presented via EMS after referral by PCP for 1 week of fatigue/lethargy and difficulty speaking. Head CT and CTAs were negative in ED. UA appears positive for UTI and patient is symptomatic. She is being admitted for metabolic encephalopathy 2/2 UTI vs medication adverse reaction as her Lyrica dose was recently increased. #metabolic encephalopathy/UTI/medication side effect - UTI vs medication induced. Symptomatic UTI, 1+ LE, 21-50 WBC. Nonseptic on arrival - no leukocytosis, VSS, afebrile. Neurology increased home Lyrica 05/15 (from 150mg BID to 150mg qam + 300 mg HS), on other sedating medications. Head CT and CTAs negative for acute changes. No other signs of acute infection, CXR negative, TSH WNL. - defer further stroke workup as clinically fits picture for encephalopathy, no other deficits to indicate stroke - slurred speech 2/2 lethargy - hold Lyrica, cyclobenzaprine, and topiramate - discussed holding Klonopin and patient refused - will continue as has been on same dose for many years without SE - patient did receive 1st dose of Dupixent 05/18 - unlikely to cause this reaction, no reported fatigue/lethargic side effects - treat UTI with Rocephin - no previous cultures on record - follow urine cultures - likely component of hypercapnia affecting sedation - CO2 68 on VBG however appears to be patient's baseline when acutely monitored on previous admissions - trend CBC and BMP #hypokalemia - chronic, on supplement at home. K+ 2.9, mag 2.3, renal function stable on arrival. 2/2 poor po intake for several days on diuretics. - 40 MeQ po Kcl in ED - ordered 3 bags IV k-rider on admission - with 500 mL gentle resuscitation LR to assist with burning as per patient request - Did miss AM diuretics 05/29 - continue PM bumex avoid volume overload, continue metolazone 05/31, continue spironolactone 05/30 - continue home KCl 40 meq BID - trend BMP and mag #T2DM - Most recent A1C 6.3%. - SSI with target BSG range 110-180mg/dL, CF 20, carb ratio 10 - Reduce home Lantus from 12 U daily to 6U - hold dapagliflozin and tirzepatide (injection on ) #HFpEF - most recent EF 55-60%. - continue diuretics as above - heart healthy, low sodium diet - monitor closely for fluid overload with IV - strict I's and O's + daily weights #COPD/BOBBI/obesity hypoventilation syndrome - on oxygen therapy chronically. VBG on arrival 7.38/68/40, baseline. CXR shows atelectasis, similar to previous. - continue 2L NC oxygen continuously - AVAPS HS - continue home inhalers - continue Dupixent in out patient setting - due for injection on Friday 06/01 #right shoulder pain - with chronic pain, unchanged. - Lidoderm patch on admission - continue Voltaren gel prn - Tylenol prn #HTN - continue amlodipine #GERD - continue PPI and pepcid VTE ppx: Lovenox Dispo: PCU Admission and Anticipated Discharge Date Admission Date: 05/29/25 History of Present Illness Chief Complaint: lethargic Primary Care Provider: Barbara Deng DO Patient is a 60 y/o female with a PMHx of T2DM, COPD on 2L NC chronically, obesity hypoventilation syndrome and BOBBI on AVAPs, HFpEF, HTN. Patient presented via EMS after referral by PCP for 1 week of fatigue/lethargy and difficulty speaking. Head CT and CTAs were negative in ED. UA appears positive for UTI and patient is symptomatic. She is being admitted for metabolic encephalopathy 2/2 UTI vs medication adverse reaction as her lyrica dose was recently increased. Patient seen at bedside. She stated that for the past week she has been very fatigued and had difficulty focusing on things. She also has had difficulty speaking, with mild slurred speech at bedside. She was having difficulty keeping her eyes open during conversation. She stated that she thinks her symptoms are secondary to her Dupixent that she received for the first time approximately 15 days ago, she is due for her second dose on Tuesday. Discussed that Dupixent typically does not cause this reaction. She has home health that noted she was more tired but did not note any facial droop. She denies any headaches, dizziness, lightheadedness, chest pain, dyspnea, extremity weakness or tingling. She does endorse blurred vision however thinks it is because she cannot open her eyes. She denies any personal history of CVA, stated her dad had a previous stroke. She denies nicotine and alcohol use. She stated she is compliant on her home oxygen and AVAPs. She took her AM meds aside from her diuretic today as she typically takes them after a doctors appointment. Regarding her low potassium - she denies any nausea, vomiting, diarrhea; she stated she has been compliant on her home potassium supplement. She stated her has urinary incontinence and wears depends chronically. Urine color has change from yellow to pineda and she does endorse warmth/burning with urination. She wishes to be full code. Allergies Allergy/AdvReac Type Severity Reaction Status Date / Time bupropion Allergy Unknown Hives Verified 05/29/25 09:23 Sulfa (Sulfonamide Allergy Unknown Hives Verified 05/29/25 09:23 Antibiotics) Home Medications Medication Instructions Recorded Confirmed Type prazosin 1 mg capsule 3 mg PO HS 01/12/22 05/29/25 History insulin syringes (disposable) 1 mL #500 ea 01/25/24 05/29/25 Rx triamcinolone acetonide 0.025 % 1 applic topical DAILY PRN rash 05/02/24 05/29/25 Rx topical cream #80 grams atorvastatin 20 mg tablet 20 mg PO DAILY #90 tabs 09/06/24 05/29/25 Rx ipratropium 0.5 mg-albuterol 3 mg 3 ml inhalation QID PRN Shortness 09/07/24 05/29/25 Rx (2.5 mg base)/3 mL nebulization Of Breath Or Wheezing #180 mL soln Hospital Bed Homecare (Hospital #1 ea 10/02/24 05/29/25 Rx Bed) Hospital Bed Repair #1 ea 10/26/24 05/29/25 Rx levothyroxine 200 mcg tablet 200 mcg PO DAILY #90 tabs 11/19/24 05/29/25 Rx levothyroxine 25 mcg tablet 25 mcg PO DAILY #90 tabs 11/19/24 05/29/25 Rx cholecalciferol (vitamin D3) 50 50 mcg PO DAILY #28 tabs 12/26/24 05/29/25 Rx mcg (2,000 unit) tablet ketoconazole 2 % shampoo 1 applic topical Q14D #120 mL 12/26/24 05/29/25 Rx albuterol sulfate 90 mcg/actuation 2 puff inhalation Q6H PRN 02/07/25 05/29/25 Rx aerosol inhaler shortness of breath or wheezing #18 grams nebulizer machine and accessories #1 ea 02/08/25 05/29/25 Rx clonazepam 1 mg tablet 1 mg PO BID 02/13/25 05/29/25 History famotidine 40 mg tablet 40 mg PO HS #30 tabs 02/21/25 05/29/25 Rx pantoprazole 40 mg tablet,delayed 40 mg PO BID 02/25/25 05/29/25 History release 4 pronged cane #1 ea 03/08/25 05/29/25 Rx Hospital Bed Repairs #1 ea 03/08/25 05/29/25 Rx Inogen Portable oxygen #1 ea 03/21/25 05/29/25 Rx diclofenac sodium 1 % topical gel 2 g topical QID #100 grams 03/27/25 05/29/25 Rx bumetanide 2 mg tablet 2 mg PO BID 04/02/25 05/29/25 History ferrous sulfate 325 mg (65 mg 325 mg PO DAILY 04/02/25 05/29/25 History iron) tablet (FeroSul) topiramate 50 mg tablet 75 mg PO DAILY 04/02/25 05/29/25 History lancets 33 gauge #500 ea 04/11/25 05/29/25 Rx pen needle, diabetic 31 gauge x #100 ea 04/11/25 05/29/25 Rx 1/4" (Comfort EZ Pen [place]) blood-glucose meter (Accu-Chek #1 ea 04/12/25 05/29/25 Rx Guide Glucose Meter) hydrocortisone 1 % topical cream 1 applic topical QID PRN rash 04/12/25 05/29/25 Rx #28.4 grams lancets (Accu-Chek Softclix #200 ea 04/12/25 05/29/25 Rx Lancets) spironolactone 25 mg tablet 25 mg PO DAILY #30 tabs 04/16/25 05/29/25 Rx dapagliflozin propanediol 10 mg 10 mg PO DAILY 04/19/25 05/29/25 History tablet desvenlafaxine succinate 100 mg 100 mg PO DAILY 04/19/25 05/29/25 History tablet,extended release 24 hr nystatin 100,000 unit/gram topical 1 applic topical QID PRN Flare 04/19/25 05/29/25 History powder quad cane #1 ea 04/19/25 05/29/25 Rx potassium chloride 20 mEq 40 meq (2 x 20 mEq) PO BID #120 04/26/25 05/29/25 Rx tablet,extended release tabs blood-glucose sensor (FreeStyle #2 ea 04/29/25 05/29/25 Rx Dom 3 Plus Sensor device) blood-glucose,microstrategy developer,cont #1 ea 05/03/25 05/29/25 Rx (FreeStyle Dom 3 [place]) metolazone 5 mg tablet 5 mg PO Q OTHER DAY #15 tabs 05/03/25 05/29/25 Rx tirzepatide 12.5 mg/0.5 mL 12.5 mg (0.5 mL) subcut Q7D #2 mL 05/04/25 05/29/25 Rx subcutaneous pen injector blood sugar diagnostic (Accu-Chek #100 ea 05/13/25 05/29/25 Rx Guide test strips) Lift Recliner #1 ea 05/14/25 05/29/25 Rx budesonide-formoterol HFA 160 2 puff inhalation BID 05/15/25 05/29/25 History mcg-4.5 mcg/actuation aerosol inhaler (Symbicort) inhalational spacing device #1 ea 05/15/25 05/29/25 Rx (Aerochamber MV spacer) pregabalin 150 mg capsule 150 mg PO .COMPLEX #90 caps 05/15/25 05/29/25 Rx cyclobenzaprine 10 mg tablet 10 mg PO BID muscle spasm #60 tabs 05/16/25 05/29/25 Rx amlodipine 2.5 mg tablet 2.5 mg PO DAILY #30 tabs 05/17/25 05/29/25 Rx metoprolol succinate 50 mg 25 mg (1/2 x 50 mg) PO DAILY #90 05/20/25 05/29/25 Rx tablet,extended release 24 hr tabs budesonide 0.5 mg/2 mL suspension 0.25 mg inhalation BID PRN 05/29/25 05/29/25 History for nebulization Shortness Of Breath Or Wheezing dupilumab 300 mg/2 mL subcutaneous 300 mg subcut DIRECTED 05/29/25 05/29/25 History pen injector (Dupixent) insulin glargine 100 unit/mL (3 12 unit subcut DAILY 05/29/25 05/29/25 History mL) subcutaneous pen (Lantus Solostar U-100 Insulin) insulin lispro 100 unit/mL 2 sliding scale dose subcut QID 05/29/25 05/29/25 History subcutaneous solution Past Med/Surg History Problem List (Updated 05/29/25 @ 15:26 by Kaylie Cooney PA-C) Hypokalemia Medication adverse effect UTI (urinary tract infection) Metabolic encephalopathy Diabetic peripheral neuropathy Abnormal CT scan, chest Allergic asthma Obesity hypoventilation syndrome Tracheomalacia Shortness of breath Congestive heart failure (Acute) Severe obstructive sleep apnea Type 2 diabetes mellitus Type 2 diabetes, controlled, with neuropathy Mixed hyperlipidemia Hypertension Dietary counseling and surveillance (Chronic) Partial tear of right rotator cuff Seborrheic dermatitis B12 deficiency Diabetic neuropathy (HFpEF) heart failure with preserved ejection fraction NSTEMI (non-ST elevated myocardial infarction) Right cervical radiculopathy Adhesive capsulitis of right shoulder Left knee DJD Osteoarthritis of right shoulder Chronic right shoulder pain Morbid obesity with BMI of 60.0-69.9, adult (Chronic) H/O: iron deficiency anemia Chronic respiratory failure Mass of lung Urinary incontinence Knee osteoarthritis Essential tremor PTSD (post-traumatic stress disorder) Hypothyroidism (Chronic) Vitamin D deficiency (Chronic) Hearing difficulty Fatty liver (Chronic) Depression (Chronic) Arthritis Anxiety Allergic rhinitis Acne Acid reflux (Chronic) Medical History Hypervolemia Hypokalemia Metabolic syndrome Diabetes type 2, uncontrolled CHF exacerbation Acute on chronic heart failure with preserved ejection fraction (HFpEF) Acute on chronic respiratory failure with hypercapnia Cellulitis of left anterior lower leg Acute on chronic respiratory failure with hypoxia and hypercapnia Obesity hypoventilation syndrome Chronic obstructive pulmonary disease Candidal intertrigo Abnormal uterine bleeding Trochanteric bursitis of left hip Pneumonia Erythema of lower extremity Food sticks on swallowing Acute on chronic respiratory acidosis Sepsis Meckel's diverticulitis SBO (small bowel obstruction) Cellulitis Elevated troponin COVID-19 Personal history of COVID-19 Hepatic encephalopathy Lung cancer H/O renal calculi H/O: pneumonia Surgical History Status post tracheostomy (11/25/21) H/O lithotripsy H/O prior ablation treatment H/O tympanostomy History of tonsillectomy Previous section History of adenoidectomy Family History Father Alcohol abuse Cardiac disorder Diabetes Gallbladder disease Hypertension Depression Mother Anxiety Depression Diabetes Hypertension Stroke Sister Breast cancer Depression Heart disease, congenital Rectal cancer Grandmother (Maternal) Lung disease Grandfather (Maternal) Heart disease Colorectal cancer Prostate cancer Denies family history of Ovarian cancer Myocardial infarction Social History Smoking Status: Never smoker Tobacco Type: Cigarettes Age Started Using Tobacco: 16; Age Quit Using Tobacco: 27; packs per day: 1; Second Hand Exposure: No; Do You Dip or Chew Tobacco: No; Hx Alcohol Use: No Hx Substance Use: No Preferred Language: [place]er Communication Ability: Effective Visual Impairment: Limited Hearing Ability: Hard of Hearing Core Filer Required: No Beliefs That Will Affect Care: Yazdanism marital status: Unknown Current Living Situation: Alone Current Living Situation Comment: lives with 24/7 caregiver current occupational status: disabled Feels Safe at Home: Yes Childhood Exposure to Second-Hand Smoke: Yes Diet Comment: Tries to maintain healthy diet. caffeine: Yes (Tea x 2 cups a day.) during the past year weight has: decreased > 10 lbs Dental Care, Regularly: No Physical Activity Frequency: Does not Exercise Physical Activity Frequency Comment: Limited by physical condition Seatbelt Use: always Sunscreen Use: Yes Assistive Devices: Cane, Oxygen - Continuous and Wheelchair Review of Systems Review of Systems: see HPI Physical Exam Physical Exam: The patient is awake, alert and oriented 3, sleepy, obese normocephalic and atraumatic, in no acute distress. Non-toxic appearing. HEENT- EOMI, mucous membranes moist. Hearing grossly intact. Heart-normal S1 and S2. No murmurs, rubs or gallops. Lungs-decreased bilaterally, no respiratory distress, no accessory muscle use. On 2L NC. Abdomen-normal bowel sounds and soft. No ascites noted. Non-tender. Extremities- no clubbing, cyanosis, or edema. Rheumatologic-normal range of motion. Psychiatric-normal affect. Musculoskeletal: no cyanosis or clubbing, extremities motor strength 5/5 Neurologic: PERRL, EOMI, accommodation nl, no face palsy, no dysarthria CN's II-XI intact bilaterally; no focal motor deficits and not confused Results & Data Results & Data Vital Signs (Past 12 Hours) Vital Signs Temp Pulse Pulse Resp BP BP Pulse Ox 05/29/25 11:44 100 05/29/25 11:44 93 H 18 132/78 100 05/29/25 11:36 90 05/29/25 10:44 100 05/29/25 10:26 36.5 C 94 H 18 113/68 100 O2 Del Method O2 Flow Rate 05/29/25 11:44 Nasal Cannula 2 05/29/25 11:44 Nasal Cannula 2 05/29/25 11:36 05/29/25 10:44 Nasal Cannula 2 05/29/25 10:26 Nasal Cannula 2 Laboratory Results Reviewed CBC, VBG, CMP, UA, troponin, mag, TSH, BNP Diagnostic Findings reviewed cxr, head CT, head CTA, neck CTA Medications Administered ED - Rocephin 1 g IV, 500 ml NSS bolus, 40 meq KCL ECG Additional Comments: sinus rhythm with 1st degree av block rate 87 qtc 447 Code Status & VTE Plan Code Status full code VTE Prophylaxis Plan VTE Prophylaxis will be ordered: Yes PG Care Time/CCT Total # of Minutes Spent Total Time Spent with Patient: Total time spent is greater than 50% in coordination of care (as documented) at patient's floor/unit and/or counseling patient: Coding Level of Care Code 28768 INT INP/OBS CARE 375MIN Diagnoses Metabolic encephalopathy G93.41 UTI (urinary tract infection) N39.0 Medication adverse effect T50.905A Hypokalemia E87.6
[2025-05-29] MEDS: LIDOCAINE 5% 1 PATCH TD STA (15:35)
[2025-05-29] MEDS: POTASSIUM CHLORIDE CRTAB 20 MEQ TABCR PO STA (15:35)
[2025-05-29] MEDS: cefTRIAXone SODIUM 1,000 MG/50 ML BAG IV STA (15:35)
--- NOTE | 2025-05-29 16:16 | Electrocardiogram Report ---
Test Reason : Blood Pressure : */* mmHG Vent. Rate : 87 BPM Atrial Rate : 87 BPM P-R Int : 302 ms QRS Dur : 86 ms QT Int : 372 ms P-R-T Axes : -22 -12 -19 degrees QTcB Int : 447 ms Sinus rhythm with 1st degree A-V block possible Inferior infarct , age undetermined Abnormal ECG When compared with ECG of 04-Apr-2025 04:38, NV interval has increased Nonspecific T wave abnormality now evident in Inferior leads Confirmed by Angel Tejada ([id number]) on 05/29/2025 4:16:22 PM Referred By: Confirmed By: Angel Tejada
[2025-05-29] MEDS: LACTATED RINGER'S 500 ML IV SCH (17:11)
[2025-05-29] MEDS: POTASSIUM CHLORIDE / WTR 10 MEQ/100 ML PLCT IV SCH ×2 (17:12→23:03)
[2025-05-29] MEDS ORDERED: GLUCAGON FOR INJ 1 MG VIAL SQ PRN (19:12)
[2025-05-29] MEDS ORDERED: ALBUT/IPRATROP 3MG/0.5MG NEB 3 ML VIAL INH PRN (19:12)
[2025-05-29] MEDS ORDERED: ONDANSETRON INJ 2 MG/ML 2 ML VIAL IV PRN (19:12)
[2025-05-29] MEDS ORDERED: CARBOHYDRATES FOR HYPOGLYCEMIA PO PRN (19:12)
[2025-05-29] MEDS ORDERED: GLUCOSE 10 TAB/TUBE PO PRN (19:12)
[2025-05-29] MEDS ORDERED: GLUCOSE 40% GEL 15 GM TUBE PO PRN (19:12)
[2025-05-29] MEDS ORDERED: ALBUTEROL HFA 8 GM INHALER INH PRN (19:12)
[2025-05-29] MEDS ORDERED: DEXTROSE 50% 50 ML SYRINGE IV PRN (19:12)
[2025-05-29] MEDS ORDERED: BUDESONIDE 0.5 MG/2 ML VIAL (PULMICORT) INH PRN (20:00)
[2025-05-29] MEDS ORDERED: DOCUSATE SODIUM 100 MG CAP PO PRN (21:00)
[2025-05-29] MEDS ORDERED: DICLOFENAC SOD 1% GEL 100 GM TUBE EXT PRN (21:00)
[2025-05-29] MEDS: BUMETANIDE 1 MG TAB PO SCH (21:21)
[2025-05-29] MEDS: ENOXAPARIN INJ 40 MG/0.4 ML SYR SQ SCH (21:22)
[2025-05-29] MEDS: FAMOTIDINE 40 MG TABLET PO SCH (21:23)
[2025-05-29] MEDS: PRAZOSIN HCL 1 MG CAP PO SCH (21:24)
[2025-05-29] MEDS: INSULIN ASPART PER UNIT CHARGE SC SCH (21:29)
[2025-05-29] MEDS: POTASSIUM CHLORIDE CRTAB 20 MEQ TABCR PO SCH (21:32)
[2025-05-29] MEDS: clonazePAM 1 MG TAB PO SCH (21:32)
[2025-05-29] MEDS: REMOVE LIDODERM PATCH SCH (22:00)
[2025-05-30] MEDS: CALCIUM CARBONATE 500 MG CHEWABLE TAB PO PRN (01:51)
[2025-05-30 02:55] VITALS: O2SAT 98
[2025-05-30] MEDS: LEVOTHYROXINE SODIUM 75 MCG TABLET PO SCH (05:12)
[2025-05-30] MEDS ORDERED: NYSTATIN POWDER 15GM BTL EXT PRN (05:38)
[2025-05-30 06:36] LABS: Hematocrit (blood only) 38.5 % (37.0-47.0); Hemoglobin 12.5 g/dl (12.0-16.0); Immature Granulocytes # (auto) 0.02 K/uL (0.01-0.20); Immature Granulocytes % (auto) 0.3 %; Mean Corpuscular Hemoglobin 28.9 pg (25.0-34.0); Mean Corpuscular Volume 88.9 fL (80.0-100.0); Platelet Count 211 K/uL (130-400); RDW Standard Deviation 43.8 fL (36.4-46.3); Red Blood Count 4.33 M/uL (4.20-5.40); White Blood Count 7.07 K/ul (4.8-10.8)
[2025-05-30 06:58] LABS: Anion Gap 8.0 (3-11); Blood Urea Nitrogen 19.0 mg/dl (6-23); Calcium 9.4 mg/dl (8.6-10.3); Carbon Dioxide 34.0 mmol/L (21-32); Chloride 97.0 mmol/L (98-107); Creatinine Clr Calc Pharmacy 104.4 ml/min; Glucose 144.0 mg/dl (70-99(Fasting)); Magnesium 2.0 mg/dl (1.7-2.4); Potassium 3.1 mmol/L (3.5-5.1); Sodium 139.0 mmol/L (136-145)
[2025-05-30] MEDS: SPIRONOLACTONE 25 MG TAB PO SCH (07:55)
[2025-05-30] MEDS: ATORVASTATIN 20 MG TAB PO SCH (07:55)
[2025-05-30] MEDS: FLUTICASONE/VILANTEROL 100/25MCG 14 PUFFS/INHALER INH SCH (07:55)
[2025-05-30] MEDS: METOPROLOL SUCC 25MG EXT REL TAB PO SCH (07:55)
[2025-05-30] MEDS: ACETAMINOPHEN 325 MG TAB PO PRN (08:00)
[2025-05-30] MEDS ORDERED: Nursing to Pharmacy Communication SCH (08:30)
[2025-05-30] MEDS ORDERED: FLUTICASONE/VILANTEROL 200/25MCG 14 PUFFS/INHALER INH SCH (09:00)
[2025-05-30] MEDS: LIDOCAINE 5% 1 PATCH TD STA (10:08)
--- NOTE | 2025-05-30 10:08 | Discharge Summary ---
Discharge Summary Date of Service May 30, 2025 Principal Dx & Hospital Course #1 = Principal Diagnosis (1) Metabolic encephalopathy: (2) UTI (urinary tract infection): (3) Medication adverse effect: (4) Hypokalemia: Plan Patient is a 60 y/o female with a PMHx of T2DM, COPD on 2L NC chronically, obesity hypoventilation syndrome and BOBBI on AVAPs, HFpEF, HTN. Patient presented via EMS after referral by PCP for 1 week of fatigue/lethargy and difficulty speaking. Head CT and CTAs were negative in ED. UA appears positive for UTI and patient is symptomatic. She is being admitted for metabolic encephalopathy 2/2 UTI vs medication adverse reaction as her Lyrica dose was recently increased. #metabolic encephalopathy/UTI/medication side effect - UTI vs medication induced. Symptomatic UTI, 1+ LE, 21-50 WBC. Nonseptic on arrival - no leukocytosis, VSS, afebrile. Neurology increased home Lyrica 05/15 (from 150mg BID to 150mg qam + 300 mg HS), on other sedating medications. Head CT and CTAs negative for acute changes. No other signs of acute infection, CXR negative, TSH WNL. Defer further stroke workup as clinically fits picture for encephalopathy, no other deficits to indicate stroke - slurred speech 2/2 lethargy Lyrica, cyclobenzaprine, and topiramate held on admission, discussed holding Klonopin and patient refused. She did receive 1st dose of Dupixent 05/18 - unlikely to cause this reaction, no reported fatigue/lethargic side effects. Possibility that UTI causing encephalopathy, UA Not overly concerning for infectious but patient symptomatic so will continue to treat. Received cef triaxone in the hospital and then transition to keflex at discharge. Suspect that this episode was caused by the increased lyrica in combination with all of her other medications. Recommended to reduce her Lyrica dose, complete the antibiotic course and discuss with outpatient providers about alternative. She does note that the increased lyrica was helping her neuropathy. #hypokalemia - chronic, on supplement at home. K+ 2.9, mag 2.3, renal function stable on arrival. 2/2 poor po intake for several days on diuretics. K improved to 3.1 with PO and IV supplementation. Given extra PO supplementation day of discharge. Continue home KCl 40 meq BID. Consider repeat BMP next week. - trend BMP and mag #T2DM - Most recent A1C 6.3%. Continue home regiment and routine endocrinology follow up. #HFpEF - most recent EF 55-60%. continue diuretics #COPD/BOBBI/obesity hypoventilation syndrome - on oxygen therapy chronically. VBG on arrival 7.38/68/40, baseline. CXR shows atelectasis, similar to previous. continue 2L NC oxygen continuously, weaned back down to her baseline. AVAPS HS. continue home inhalers. Recommend continue Dupixent in out patient setting - due for injection on Friday 06/01 #HTN - continue amlodipine #GERD - continue PPI and pepcid Dispo: discharge to home with Notes For Next Care Provider Recommended to reduce her Lyrica dose, complete the antibiotic course and discuss with outpatient providers about alternative. She does note that the increased lyrica was helping her neuropathy. Admission HPI Per Admitting Provider Patient is a 60 y/o female with a PMHx of T2DM, COPD on 2L NC chronically, obesity hypoventilation syndrome and BOBBI on AVAPs, HFpEF, HTN. Patient presented via EMS after referral by PCP for 1 week of fatigue/lethargy and difficulty speaking. Head CT and CTAs were negative in ED. UA appears positive for UTI and patient is symptomatic. She is being admitted for metabolic encephalopathy 2/2 UTI vs medication adverse reaction as her lyrica dose was recently increased. Patient seen at bedside. She stated that for the past week she has been very fatigued and had difficulty focusing on things. She also has had difficulty speaking, with mild slurred speech at bedside. She was having difficulty keeping her eyes open during conversation. She stated that she thinks her symptoms are secondary to her Dupixent that she received for the first time approximately 15 days ago, she is due for her second dose on Tuesday. Discussed that Dupixent typically does not cause this reaction. She has home health that noted she was more tired but did not note any facial droop. She denies any headaches, dizziness, lightheadedness, chest pain, dyspnea, extremity weakness or tingling. She does endorse blurred vision however thinks it is because she cannot open her eyes. She denies any personal history of CVA, stated her dad had a previous stroke. She denies nicotine and alcohol use. She stated she is compliant on her home oxygen and AVAPs. She took her AM meds aside from her diuretic today as she typically takes them after a doctors appointment. Regarding her low potassium - she denies any nausea, vomiting, diarrhea; she stated she has been compliant on her home potassium supplement. She stated her has urinary incontinence and wears depends chronically. Urine color has change from yellow to pineda and she does endorse warmth/burning with urination. She wishes to be full code. Discharge Exam General: NAD, VS as above Resp: normal respiratory effort, weaned to 2L, no adventicious sounds CV: RRR, no murmur, Abd: normal bowel sounds, non tender, no hepatosplenomegaly Extremities: Moves all extremities, trace LE edema Neuro: A&O x3, Discharge Plan Discharge Items Patient Disposition: Home - Home Health Services Reason For Visit: AMS, UTI, MEDICATION SE Discharge Diagnosis: AMS - medication side effect vs UTI Condition on Discharge: Fair Activity: Resume your previous activity Weightbearing: Full weightbearing Non-emergency contact: Primary Care Provider, Mine Engineering Supervisor and Neurologist Call non-emergency contact if: you have any medication questions, your symptoms worsen and your temperature is above 101 Follow-up/Referrals: Barbara Deng, [Primary Care Provider] - 06/06/25 9:20 am (Follow-up within 1 week Scheduled on 06/06/25 at 9:20 with Barbara Deng) Diet: Carb Consistent or DM2 Addtl Attending Provider Instructions: Santino Bryon, you were hospitalized after acute change in mental status. There is concern that this is from a UTI versus medication side effects. While your urine is not overly concerning for infection we will continue antibiotics at discharge. Recommend that you decrease your Lyrica back to the 150 mg twice a day. Please discuss with your outpatient providers would be safe for you to resume this at the higher dose as it was helping your symptoms although it was likely contributing to the confusion. It also may have had a cumulative effect with all the other medications that you take that can cause confusion (flexerile, klonapin, topamax). As we discussed, i would recommend completing the course of antibiotics and see how your mental status does. If your neuropathy worsens recommend working with neurology to find a safe dose or alternative medications. No other changes to your home medications. Please follow up with your PCP within one week. Follow up with neurology within one month. Keep other follow up appointments as scheduled. Activity: You can do normal everyday activities as your body allows. Take rest breaks if you feel tired. Do not overexert. Stop activity if you have pain, shortness of breath or feel dizzy. Follow-up appointments: Make an appointment with your primary care physician within one week of discharge. A copy of this summary will be sent to them. Every time you see your primary care physician, or any other doctor, bring your medication list, and a list of questions. CONTACT YOUR PRIMARY CARE PROVIDER if you experience any of the following: Shortness of breath or difficulty breathing Fevers or chills Feeling tired with normal activity or experiencing dizziness or fainting Difficulty following your treatment plan, or difficulty taking medications CALL 911 OR GO TO THE EMERGENCY DEPARTMENT if you experience any of the following: Severe abdominal pain or nausea/vomiting Severe chest pain, or chest pain that radiates (moves) to your jaw or arm Sudden, severe shortness of breath or difficulty breathing Thank you for allowing us to participate in your care. Addtl Fitness Services Manager Provider Instructions: DIABETES RECOMMENDATIONS: 1.) If symptoms do not match FreeStyle Dom value, recommended confirming low alerts/values with fingerstick. 2.) Given recent increase in your Mounjaro dose and ongoing weight loss, you may likely need a reduction in your insulin doses in an effort to prevent any hypoglycemia. If you are having low blood sugar episodes at home, please reach out to your outpatient providers office for assistance on adjusting the doses. Pending Studies at Discharge: No Stand-Alone Forms: My [facility] [email or web address], Smoking Cessation Medications and DC Order Prescriptions: New cephalexin 500 mg capsule 500 mg PO BID Qty: 8 0RF Continued (DME) insulin syringes (disposable) 1 mL syringe See Rx Instructions .ROUTE .MEDSUPPLY Qty: 500 1RF Rx Instructions: Test BS qid. Dx: E11.9 triamcinolone acetonide 0.025 % cream 1 applic topical DAILY PRN (Reason: rash) Qty: 80 0RF atorvastatin 20 mg tablet 20 mg PO DAILY Qty: 90 3RF (DME) Hospital Bed Misc See Rx Instructions .Route Qty: 1 0RF Rx Instructions: REMOTE NOT WORKING REPAIR IF POSSIBLE / REPLACE IF UNREPAIRABLE (DME) Hospital Bed Repair See Rx Instructions .Route .MEDSUPPLY Qty: 1 0RF Rx Instructions: As directed levothyroxine 25 mcg tablet 25 mcg PO DAILY Qty: 90 3RF Rx Instructions: take with 200mcg tab for a total of 225mcg daily levothyroxine 200 mcg tablet 200 mcg PO DAILY Qty: 90 3RF Rx Instructions: take with 25mcg tab to equal 225mcg daily cholecalciferol (vitamin D3) 50 mcg (2,000 unit) tablet 50 mcg PO DAILY Qty: 28 5RF ketoconazole 2 % shampoo 1 applic topical Q14D Qty: 120 0RF albuterol sulfate 90 mcg/actuation HFA aerosol inhaler 2 puff inhalation Q6H PRN (Reason: shortness of breath or wheezing) Qty: 18 3RF (DME) nebulizer machine and accessories See Rx Instructions .Route .MEDSUPPLY Qty: 1 0RF Rx Instructions: As directed famotidine 40 mg tablet 40 mg PO HS Qty: 30 5RF (DME) Hospital Bed Repairs See Rx Instructions .Route .MEDSUPPLY Qty: 1 0RF Rx Instructions: As directed (DME) 4 pronged cane See Rx Instructions .Route .MEDSUPPLY Qty: 1 0RF Rx Instructions: As directed (DME) Inogen Portable oxygen See Rx Instructions .Route .MEDSUPPLY Qty: 1 0RF Rx Instructions: As directed 2L NC diclofenac sodium 1 % gel 2 g topical QID Qty: 100 2RF Rx Instructions: apply to right shoulder. Unable to verify OTC meds at this date/time. (DME) pen needle, diabetic [Comfort EZ Pen Clear Spring] 31 gauge x 1/4" needle See Rx Instructions .Route Qty: 100 2RF Rx Instructions: use 1 needle QD with Victoza (DME) lancets 33 gauge misc See Rx Instructions .Route Qty: 500 1RF Rx Instructions: Test Glucose QID DX CODE: E11.9 (DME) blood-glucose meter [Accu-Chek Guide Glucose Meter] Misc See Rx Instructions .Route Qty: 1 0RF Rx Instructions: Test BS 4 times daily (DME) lancets [Accu-Chek Softclix Lancets] Misc See Rx Instructions .Route Qty: 200 0RF Rx Instructions: Test 4 times daily hydrocortisone 1 % cream 1 applic topical QID PRN (Reason: rash) Qty: 28.4 5RF Rx Instructions: to rash on face, front and back of neck. potassium chloride 20 mEq tablet extended release 40 meq PO BID Qty: 120 3RF (DME) FreeStyle Dom 3 Plus Sensor Device See Rx Instructions .Route Qty: 2 12RF Rx Instructions: As directed. Testing BS QID (DME) FreeStyle Dom 3 [place] Misc See Rx Instructions .Route Qty: 1 0RF Rx Instructions: As directed metolazone 5 mg tablet 5 mg PO Q OTHER DAY Qty: 15 2RF (DME) Accu-Chek Guide test strips Strip See Rx Instructions .Route Qty: 100 0RF Rx Instructions: Test 6 times daily (DME) Lift Recliner See Rx Instructions .Route .MEDSUPPLY Qty: 1 0RF Rx Instructions: As directed cyclobenzaprine 10 mg tablet 10 mg PO BID Qty: 60 5RF amlodipine 2.5 mg tablet 2.5 mg PO DAILY Qty: 30 2RF metoprolol succinate 50 mg tablet extended release 24 hr 25 mg PO DAILY Qty: 90 1RF prazosin 1 mg capsule 3 mg PO HS Rx Instructions: CONFIRMED ON [facility] DC SUMMARY 01/05 spironolactone 25 mg tablet 25 mg PO DAILY Qty: 30 2RF ipratropium-albuterol 0.5 mg-3 mg(2.5 mg base)/3 mL solution for nebulization 3 ml inhalation QID PRN (Reason: Shortness Of Breath Or Wheezing) Qty: 180 0RF clonazepam 1 mg tablet 1 mg PO BID Patient Comments: rx'd by Dr. Rudd- Pt states may change, Pt lost sister upon dc [facility] 04/10/25. tirzepatide 12.5 mg/0.5 mL pen injector 12.5 mg subcut Q7D Qty: 2 2RF Rx Instructions: pantoprazole 40 mg tablet,delayed release (DR/EC) 40 mg PO BID (DME) quad cane See Rx Instructions .Route .MEDSUPPLY Qty: 1 0RF Rx Instructions: As directed nystatin 100,000 unit/gram powder 1 applic topical QID PRN (Reason: Flare) Rx Instructions: Apply under breast, along abd pannus, groin PRN. desvenlafaxine succinate 100 mg tablet extended release 24 hr 100 mg PO DAILY dapagliflozin propanediol 10 mg tablet 10 mg PO DAILY (DME) Aerochamber MV Spacer See Rx Instructions .ROUTE .MEDSUPPLY Qty: 1 0RF Rx Instructions: As directed budesonide-formoterol [Symbicort] 160-4.5 mcg/actuation HFA aerosol inhaler 2 puff inhalation BID ferrous sulfate [FeroSul] 325 mg (65 mg iron) tablet 325 mg PO DAILY topiramate 50 mg tablet 75 mg PO DAILY bumetanide 2 mg tablet 2 mg PO BID budesonide 0.5 mg/2 mL suspension for nebulization 0.25 mg inhalation BID PRN (Reason: Shortness Of Breath Or Wheezing) insulin lispro 100 unit/mL solution 2 sliding scale dose subcut QID MDD 48 units Rx Instructions: prior to meal; BSg 0-110-0 units, 111-149 2 unit, 150-199 4 units, 200-249 6 units, 250-299 8 units, 300-349 10 units, 350-399 12 units, >400 call MD insulin glargine [Lantus Solostar U-100 Insulin] 100 unit/mL (3 mL) insulin pen 12 unit subcut DAILY Dupixent Pen 300 mg/2 mL pen injector 300 mg subcut DIRECTED Rx Instructions: every other week Changed pregabalin 150 mg capsule 150 mg PO BID Qty: 90 5RF Discharge Orders: Discharge Order (Routine); Ordered 05/30/25 Ordered By: Salina Stauffer Admission Data Admit Date/Time: 05/29/25 14:57 Attending Provider: Carmela Arellano Admit Provider: Carmela Arellano Primary Care Provider: Barbara Deng Other Providers: Carmela Arellano Other Interventions: Discharge Summary Assessment (RN) Last Done: 05/30/25 14:03 Hospital Stay Data Consultations 05/29/25 13:54 ED Decision to Admit Stat Diagnostic Imagining Performed Chest X-Ray 05/29/25 10:48 SINGLE VIEW CHEST CLINICAL HISTORY: Weakness FINDINGS: An AP, portable, upright chest radiograph is compared to study dated 04/02/2025 and correlated with chest CT dated 04/03/2025. The heart is enlarged noting atherosclerotic calcification of the thoracic aorta. The pulmonary vasculature is not congested. There is chronic elevation of the right hemidiaphragm. Bibasilar opacities are similar to previous. No large pleural effusion or pneumothorax is seen. The skeletal structures are osteopenic. The bony thorax is grossly intact. IMPRESSION: 1. Cardiomegaly without radiographic evidence of congestive failure. 2. Bibasilar opacities are similar to previous and likely represent atelectasis. Correlate clinically. ACT 112: Negative or not required by law. Electronically signed by: Nikunj Alan M.D. 05/29/2025 11:[address] 05/29/25 10:49 CT head/brain wo con CLINICAL HISTORY: 60 years-old Female with confusion. Acutely altered mental status TECHNIQUE: Multiple axial CT images of the head were obtained without contrast. A dose lowering technique was utilized adhering to the principles of ALARA. COMPARISON: CTA head of same day FINDINGS: No acute intracranial hemorrhage, midline shift, intracranial mass, hydrocephalus, territorial ischemia or abnormal extra-axial collection. Involutional changes with mild white matter hypodensities which may represent a component of chronic microvascular ischemic disease. The calvarium is intact. The paranasal sinuses, mastoid air cells, and middle ear cavities are clear. IMPRESSION: No acute intracranial abnormality. ACT 112: Negative or not required by law. The above report was generated using voice recognition software. It may contain grammatical, syntax or spelling errors. Electronically signed by: Eduin Briseno M.D. 05/29/2025 1:31 PM Head CTA 05/29/25 10:55 CT ANGIOGRAM OF THE BRAIN CLINICAL HISTORY: Change in mental status. COMPARISON STUDY: Unenhanced CT of the brain performed concurrently on 05/29/2025 TECHNIQUE: Following the IV administration of 120 cc of Optiray 320, CT angiogram of the brain was performed from the skull base to the vertex. Images are reviewed in the axial, sagittal, and coronal planes. 3-D MIPS images are created and assessed. IV contrast was administered without complication. A dose lowering technique was utilized adhering to the principles of ALARA. FINDINGS: Brain parenchyma: There is minimal microangiopathic change. There is no evidence of hemorrhage or mass effect noting angiographic phase technique. There is no evidence of enhancing mass lesion on the angiogram phase images. No extra-axial fluid collection is seen. Landrum-white matter differentiation is preserved. Ventricles, sulci, and cisterns: Normal in configuration. CT angiogram of the brain: There is mild atherosclerotic calcification of the cavernous carotid arteries. The internal carotid arteries at the skull base are patent, as are the anterior and middle cerebral arteries. The vertebrobasilar system and posterior cerebral arteries are patent. The vertebral arteries are codominant. There is no aneurysm, high-grade stenosis, or focal vessel cutoff identified throughout the intracranial circulation. Dural sinuses: Clear as visualized. Orbits: The bony orbits are intact. The orbital contents are normal as visualized. Sinuses and mastoids: There is mucosal thickening within the right posterior ethmoid sinus. The visualized paranasal sinuses are otherwise clear. The mastoid air cells are well pneumatized. Calvarium: Unremarkable. IMPRESSION: 1. There is no evidence of hemorrhage or mass effect noting angiographic phase technique. 2. Unremarkable CT angiogram of the brain. ACT 112: Negative or not required by law. Electronically signed by: Nikunj Alan M.D. 05/29/2025 1:23 PM Neck CTA 05/29/25 10:55 CT ANGIOGRAPHY OF THE NECK WITH CONTRAST CLINICAL HISTORY: change in speech, dizziness COMPARISON STUDY: No previous studies for comparison. Technique: CT angiography of the carotid and vertebral arteries was obtained using Optiray and 3D reconstruction on an independent workstation. NASCET criteria was utilized. Automated exposure control was utilized for the study. A dose lowering technique was utilized adhering to the principles of ALARA. CT DOSE: 1259.34 mGy.cm Findings: The visualized portions of the lung apices are unremarkable. Thyroid gland is unremarkable. There is no pathologic cervical lymphadenopathy. The internal carotids have a medial retropharyngeal course. There is no evidence of common or internal carotid artery stenosis or dissection. There is no evidence of vertebral artery dissection or occlusion or stenosis. Resolution is slightly limited due to the patient's large body habitus and resulting beam hardening artifact Incidental note is made of dense arthritic changes in the right shoulder IMPRESSION: No evidence of hemodynamically significant carotid or vertebral artery stenosis. No evidence of dissection. ACT 112: Negative or not required by law. Electronically signed by: Kai Hernandez M.D. 05/29/2025 1:28 PM Pending Results Patient Have Any Pending Studies at Discharge: No Discharge Instructions Given to Patient (Per Discharging Provider) Ms. Slater, francesco were hospitalized after acute change in mental status. There is concern that this is from a UTI versus medication side effects. While your urine is not overly concerning for infection we will continue antibiotics at discharge. Recommend that you decrease your Lyrica back to the 150 mg twice a day. Please discuss with your outpatient providers would be safe for you to resume this at the higher dose as it was helping your symptoms although it was likely contributing to the confusion. It also may have had a cumulative effect with all the other medications that you take that can cause confusion (flexerile, klonapin, topamax). As we discussed, i would recommend completing the course of antibiotics and see how your mental status does. If your neuropathy worsens recommend working with neurology to find a safe dose or alternative medications. No other changes to your home medications. Please follow up with your PCP within one week. Follow up with neurology within one month. Keep other follow up appointments as scheduled. Activity: You can do normal everyday activities as your body allows. Take rest breaks if you feel tired. Do not overexert. Stop activity if you have pain, shortness of breath or feel dizzy. Follow-up appointments: Make an appointment with your primary care physician within one week of discharge. A copy of this summary will be sent to them. Every time you see your primary care physician, or any other doctor, bring your medication list, and a list of questions. CONTACT YOUR PRIMARY CARE PROVIDER if you experience any of the following: Shortness of breath or difficulty breathing Fevers or chills Feeling tired with normal activity or experiencing dizziness or fainting Difficulty following your treatment plan, or difficulty taking medications CALL 911 OR GO TO THE EMERGENCY DEPARTMENT if you experience any of the following: Severe abdominal pain or nausea/vomiting Severe chest pain, or chest pain that radiates (moves) to your jaw or arm Sudden, severe shortness of breath or difficulty breathing Thank you for allowing us to participate in your care. Total Time Total Time Spent Total Time Spent (In Minutes): Time spent day of discharge 40 minutes including direct patient care, medication reconciliation, documentation, review of labs and images, and coordination of care. Coding Level of Care Code 49030 INP/OBS DISCH >30 MIN Diagnoses Metabolic encephalopathy G93.41 UTI (urinary tract infection) N39.0 Medication adverse effect T50.905A Hypokalemia E87.6
[2025-05-30] MEDS: LANTUS PER UNIT CHARGE SQ SCH (10:09)
[2025-05-30] MEDS: POTASSIUM CHLORIDE CRTAB 20 MEQ TABCR PO SCH (10:10)
[2025-05-30 12:12] VITALS: RESP 19; TEMP 97.5
[2025-05-30] MEDS: cefTRIAXone SODIUM 2,000 MG/50 ML BAG IV SCH (13:08)
[2025-05-30] MEDS ORDERED: cefTRIAXone SODIUM 1,000 MG/50 ML BAG IV SCH (14:00)
[2025-05-30 14:04] VITALS: BP 168/89
[2025-05-30 14:37] VITALS: PULSE 94
[2025-05-30] MEDS ORDERED: REMOVE LIDODERM PATCH ONE (20:30)
== END 2025-05-30 16:21 | disposition home health service (06) | DRG 689 ==
LOC: ED 10:35 → INTOOBSV 14:57 → 2E 14:57